=== PATIENT | male | born 1965 | race Caucasian/White ===

== ENCOUNTER 2016-05-20 10:32 | Emergency (ER) | payer BC ==
--- NOTE | 2016-05-20 12:14 | RAD ---
INDICATION: 2 days cough, shortness of breath. Chest pain. COMPARISON: July 22, 2014 TECHNIQUE: Dual energy PA and routine lateral views of the chest were obtained. REPORT: Alveolar consolidation at the RIGHT lung base. Negative for volume loss to favor atelectasis. Grossly clear pleural spaces. Negative for pneumothorax. The heart, pulmonary vasculature, and mediastinal contours are unremarkable. IMPRESSION: RIGHT basilar pneumonia. Radiographic follow-up after therapy suggested to assess for resolution.
[2016-05-20] MEDS ORDERED: cefTRIAXone VIAL(*) 1,000 MG VIAL IM ONE (12:33)
--- NOTE | 2016-05-20 12:48 | UC ---
Cosmo Reilly SooYoung, scribed for [facility],Sunil Quevedo MD on 05/20/16 at 1050 . Respiratory Complaint HPI - HPI Summary HPI Summary: NOTE: Pt reports cough and chills for 2 days. Chest discomfort substernally. Temp noted of 99. Pulse 102. BP elevated at 224/124. Pt noncompliant with DM, HTN and gout medications for 6 months. Pulse ox noted at 97. IN ROOM NOTE: A 51 y/o M presents to [facility] [place] with c/o bad cough onset two days. Associated sx: CP , vomiting/diarrhea, unverified fever. Denies abd pain. Pt went to work yesterday but had to go home early because he felt ill. Pt is a non-smoker, denies PMHx: asthma. PMHx: Pt has DM but has not taken his insulin in the past 6 months. His PCP retired six months ago and he hasnt found a new PCP. No hx of cardiac issues. Past hospitalizations in 2013 for toe amputations on L and R feet due to gout. NURSE'S NOTE: Here w/ cough and chills x2 days. Has chest pain and sob only when coughing. Also c/o diarrhea x2 days, emesisx2 only when coughing. Pt as not taken meds for last 6 months, states he was unable to get med refilled after PCP retired. MD aware. Hx DM 2, HTN, and gout. [ End ] - History of Current Complaint Chief Complaint: UCChestPain Stated Complaint: CHEST PAIN, COUGH,VOMITING Hx Obtained From: Patient Onset/Duration: Lasting Days, Still Present Severity Currently: Mild Pain Intensity: 2 Pain Scale Used: 0-10 Numeric Associated Signs And Symptoms: Positive: Fever - Allergies/Home Medications Allergies/Adverse Reactions: Allergies Allergy/AdvReac Type Severity Reaction Status Date / Time No Known Allergies Allergy Verified 05/20/16 10:55 PMH/Surg Hx/FS Hx/Imm Hx Previously Healthy: No Endocrine History Of: Reports: Diabetes - peripheral neuropathy, Dyslipidemia Denies: Thyroid Disease Cardiovascular History Of: Reports: Hypertension Denies: Cardiac Disorders, Pacemaker/ICD, Myocardial Infarction, Congestive Heart Failure, Atrial Fibrillation, Deep Vein Thrombosis, Bleeding Disorders Respiratory History Of: Reports: Asthma - Bronchospasm/albuterol use. Denies: COPD GI/ History Of: Denies: Gastroesophageal Reflux, Ulcer, Gastrointestinal Bleed, Gall Bladder Disease, Kidney Stones, Diverticulitis, Renal Disease, Urosepsis Neurological History Of: Denies: TIA, CVA, Dementia, Seizures, Migraine Psychological History Of: Denies: Anxiety, Depression, Bipolar Disorder, Schizophrenia, Post Traumatic Stress Disorder Cancer History Of: Denies: Lung Cancer, Colorectal Cancer, Breast Cancer, Prostate Cancer, Cervical Cancer Other History Of: Negative For: HIV, Hepatitis B, Hepatitis C, Anticoagulant Therapy - Surgical History Surgical History: Yes Surgery Procedure, Year, and Place: left second toe amputation 2009. Left ankle ORIF. RIGHT GREAT TOE AMPUTATION 2012, ALL OTHER TOES AMPUTATED 12/2014. HERNIA A CHILD - Family History Known Family History: Positive: Hypertension - Social History Occupation: Employed Full-time Lives: With Family Alcohol Use: Rare Substance Use Type: None Smoking Status (MU): Never Smoked Tobacco - Immunization History Most Recent Influenza Vaccination: 2005 Most Recent Tetanus Shot: 2012 Most Recent Pneumonia Vaccination: never Review of Systems Constitutional: Fever - unverified Respiratory: Cough Cardiovascular: Chest Pain Gastrointestinal: Vomiting, Diarrhea, Other - neg: abd pain All Other Systems Reviewed And Are Negative: Yes Physical Exam Triage Information Reviewed: Yes Appearance: Well-Appearing, No Pain Distress, Well-Nourished Vital Signs: Initial Vital Signs Temp 99 F 05/20/16 10:50 Pulse 102 05/20/16 10:50 Resp 18 05/20/16 10:50 BP 224/124 05/20/16 10:50 Pulse Ox 97 05/20/16 10:50 Vital Signs Reviewed: Yes Eyes: Positive: Conjunctiva Clear ENT: Positive: Hearing grossly normal, Pharynx normal, TMs normal. Negative: Muffled/hoarse voice Neck: Positive: Supple, No Lymphadenopathy Respiratory: Positive: Other: - POS: FEW RHONCHI; EXTENDED EXPIRATORY PHASE; Neg : Rales Cardiovascular: Positive: RRR, No Murmur Abdomen Description: Positive: Nontender, No Organomegaly, Soft Bowel Sounds: Positive: Present Musculoskeletal: Positive: Strength Intact, Other: - REID Neurological: Positive: Alert Psychological: Positive: Age Appropriate Behavior Skin: Negative: rashes UC Diagnostic Evaluation - Radiology Xray Interpretation: Positive (See Comments) - CXR, IMPRESSION: R BASILAR PNA. Radiographic f/u after therapy suggested to assess for resolution. Radiology Interpretation Completed By: Radiologist Respiratory Course/Dx - Course Course Of Treatment: MDM: Discussed at length pts non-compliance, will reorder his medications for DM and HTN. Hes been warned about watching his glucose carefully. Glucose result is 163. Also, sent him for CXR to rule out PNA. CXR shows R basilar PNA. Discussed with pt, will begin his treatment with Rocephin 1000mg IM at [facility] [place], to be followed with Levaquin for 7 days 500mg. Pt is instructed to find a new PCP, was given referral papers. If he does not, he should return to [facility] [place] in 10 days. If his synmptoms worsen, he should go to the ED. Pt voiced agreement and understanding. - Differential Dx/Diagnosis Differential Diagnosis/HQI/PQRI: Bronchitis, Other - PNA Provider Diagnoses: R basilar PNA. Non compliance on medications for DM and hypertension. No primary care Discharge - Discharge Plan Condition: Stable Disposition: HOME Prescriptions: Albuterol HFA INHALER* [Ventolin HFA Inhaler*] 1 - 2 puff INH Q4H PRN #1 mdi PRN Reason: Shortness Of Breath Allopurinol TAB* [Zyloprim 100 MG TAB*] 100 mg PO BID #60 tab MDD 2 Colchicine* [Colcrys*] 0.6 mg PO TID #20 tab MDD 3 Fluticasone HFA 220 mcg(NF) [Flovent Hfa 220 Mcg(NF)] 2 puff INH BID #2 mdi MDD 4 Furosemide TAB* [Lasix TAB*] 20 mg PO TID #60 tab MDD 3 Insulin GLARGINE(*) [Lantus(*)] 46 units SUBCUT BEDTIME #1 box MDD 1 Levofloxacin TAB* [Levaquin TAB*] 500 mg PO DAILY #7 tab Lisinopril TAB* [Prinivil TAB 10 MG*] 20 mg PO DAILY #60 tab MDD 20 mg amLODIPine TAB* [Norvasc TAB*] 10 mg PO DAILY #60 tab MDD 10 mg a day Patient Education Materials: Pneumonia (ED) Forms: *Work Release Referrals: [facility] [place] PHYSICIAN REFERRAL [Outside] Additional Instructions: WE DISCUSSED: 1. You have pneumonia in your right lung. You have been given a shot ( ceftriaxone) and also oral antibiotics (Levaquin for 7 days). 2. Rest; lots of fluids. 3. GO TO ED FOR SHORTNESS OF BREATH, CHEST PAIN, INCREASED COUGH OR CONTINUOUS TEMPERATURE. 4. You need to be rechecked and have a follow up x ray. Go to your regular doctor, if possible, otherwise, return here in 10 days. 5. I have refilled all your medications for diabetes, hypertension and gout, as well as albuterol. Use the albuterol for the next 3 days. 6. Work note given. The documentation as recorded by the Cosmo peoples SooYoung accurately reflects the service I personally performed and the decisions made by me, Sunil Salinas MD.
[2016-05-20] MEDS ORDERED: Lidocaine 1% MPF* 2 ML VIAL ONE (12:51)
[2016-05-20 13:24] VITALS: BP 190/110
== END 2016-05-20 13:20 | disposition home or self-care (01) ==
LOC: UCEAST 10:32
DX: J18.9 Pneumonia, unspecified organism (principal); E11.42 Type 2 diabetes mellitus with diabetic polyneuropathy; I10 Essential (primary) hypertension; Z91.14 Patient's other noncompliance with medication regimen
CPT/HCPCS: 71020; 96372; 99213; G0463; J0696

== ENCOUNTER 2017-01-19 01:16 | Inpatient (IN) | payer BC ==
[2017-01-19 04:17] LABS: Mean Corpuscular Hemoglobin 34 pg (27-31); Mean Platelet Volume 10 um3 (7.4-10.4)
[2017-01-19 04:21] LABS: Hematocrit 17 % (42-52); Mean Corpuscular HGB Conc 33 g/dl (31-36); Mean Corpuscular Volume 105 fL (80-94); Red Blood Count 1.61 10^6/ul (4.0-5.4); Red Cell Distribution Width 15 % (10.5-15); White Blood Count 7.1 10^3/ul (3.5-10.8)
[2017-01-19 04:22] LABS: Comments Flag Yes
[2017-01-19 04:25] LABS: Add Diff/Slide Review? Slide Review Added
[2017-01-19 04:26] LABS: Hemoglobin 5.5 g/dl (14.0-18.0)
[2017-01-19 04:27] LABS: Albumin 3.4 g/dL (3.2-5.2); Calcium 6.8 mg/dL (8.6-10.3); EGFR African American 3.5 (>60); EGFR Non-African American 2.8 (>60); Globulin 2.7 g/dL (2-4); Total Bilirubin 0.3 mg/dL (0.2-1.0); Total Protein 6.1 g/dL (6.4-8.9)
[2017-01-19 04:32] LABS: Potassium 5.8 mmol/L (3.5-5.0)
[2017-01-19 04:39] LABS: Urine Bacteria Absent (Absent); Urine Bilirubin Negative (Negative); Urine Glucose 1+(50 mg/dL) (Negative); Urine Nitrite Negative (Negative)
[2017-01-19 04:55] LABS: BUN/Creatinine Ratio 9.9 (8-20)
[2017-01-19 05:10] LABS: Corrected Retic Count 0.8 % (0.5-1.5); Maturation Factor Retic 2.5
--- NOTE | 2017-01-19 05:26 | HP ---
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 He denies focal weakness, change in speech/swallow, and chest pain. He admits to some mild SOB and mild nausea without emesis, no sweats, changes in bowel/bladder, cough, congestion, sore throat, or other issues. Since arriving, his numbness has improved, but persists. Work up is most notable for HGB 5.5, MCV 105, BUN/cre of 180/18, K 5.8, & serum CO2 of 7. Case was reviewed with Kimberlee Johnson MD nephrology who requests ICU admission, bicarbonate GTT, repeat labs at noon, & will evaluate him this AM. PMedHx DM2, insulin requiring HTN HLD gout Ambulatory Orders NK [No Home Medications Reported] 01/19/17 Allergies No Known Allergies Allergy (Verified 01/19/17 05:10) PSurgHx R transmetatarsal & L 2nd toe amputations (for gout? per patient) R talus surgery 2nd lawnmower incident as a child SocHx: no tobacco, occasional alcohol, no recreational drugs; passed unexpectedly of massive NM 1 month ago, now living alone; works for [employer]; full code status FamHx: Mother: in her 70s of liver CA; Father: alive in his 70s w/ CAD , HTN; Sister: estranged, HX Guillain-Rowland ROS: as above, otherwise reviewed and all were negative vitals: Vital Signs Temp 37.2 C 01/19/17 01:18 Pulse 90 01/19/17 06:01 Resp 20 01/19/17 06:01 BP 168/82 01/19/17 06:01 Pulse Ox 98 01/19/17 06:01 Intake & Output 01/18/17 01/18/17 01/19/17 11:59 23:59 11:59 Weight 104.326 kg Constitutional: NAD, normally developed, obese white male HEENM: atraumatic; sclera/conjunctiva: non-icteric/clear; hearing: clinically intact; oropharynx: clear, mucosa moist Neck: soft tissue: non-tender; thyroid: normal Pulmonary: clear to auscultation bilaterally, good aeration, no accessory muscle use CV: RR/RR, normal S1S2, no carotid bruit, no jugular venous distention, 2+ B DP/ PT, 1+ BLE edema Abdominal: soft, non-distended, non-tender, no rebound/guarding/rigidity, normoactive bowel sounds, no hepatosplenomegaly or masses, no costovertebral angle tenderness Musculoskeletal: general: R transmetatarsal amputation, R heal deformity, L 2nd toe amputation; gait: stable Integumental: diffuse BLE superficial skin sores consistent w/ advanced renal disease Neurological cranial nerves III/IV/: symmetric light reflex, EOMI/PERRLA VII: intact facial symmetry VIII: hearing clinically intact IX/X: symmetric palatal motion, no dysarthria XII: midline tongue protrusion, normal voice articulation motor: grossly non-focal Psychiatric orientation: AA&O to PPS affect: calm mood: cooperative eye contact: fair content: reliable responses: timely insight: poor Testing: Lab Results 01/19/17 01/19/17 01/19/17 Range/Units 03:47 03:47 03:47 WBC 7.1 (3.5-10.8) 10^3/ul RBC 1.61 L (4.0-5.4) 10^6/ul RBC (Retic) 1.61 L (4.6-6.2) 10^6/ul Hgb 5.5 L* (14.0-18.0) g/dl Hct 17 L (42-52) % HCT (Retic) 17 L (42-52) % MCV 105 H (80-94) fL MCH 34 H (27-31) pg MCHC 33 (31-36) g/dl RDW 15 (10.5-15) % Plt Count 153 (150-450) 10^3/ul MPV 10 (7.4-10.4) um3 Neut % (Auto) 84.6 H (38-83) % Lymph % (Auto) 8.4 L (25-47) % [place] % (Auto) 5.8 (1-9) % Eos % (Auto) 0.8 (0-6) % Baso % (Auto) 0.4 (0-2) % Absolute Neuts (auto) 6.0 (1.5-7.7) 10^3/ul Absolute Lymphs (auto) 0.6 L (1.0-4.8) 10^3/ul Absolute Monos (auto) 0.4 (0-0.8) 10^3/ul Absolute Eos (auto) 0.1 (0-0.6) 10^3/ul Absolute Basos (auto) 0 (0-0.2) 10^3/ul Absolute Nucleated RBC 0.01 10^3/ul Nucleated RBC % 0.1 Normal RBC Morphology Not Reportable Macrocytosis 2+ Spherocytes 2+ Jonah Cells 1+ Retic Count, Calc 2.2 H (0.5-1.5) % Corrected Retic Count 0.8 (0.5-1.5) % Retic Shift Factor 2.5 Retic Production Index 0.30 Immature Retic Fraction 0.50 Mean Retic Volume 130.8 Sodium 138 (133-145) mmol/L Potassium 5.8 H (3.5-5.0) mmol/L Chloride 110 (101-111) mmol/L Carbon Dioxide 7 L* (22-32) mmol/L Anion Gap 21 H (2-11) mmol/L BUN 181 H (6-24) mg/dL Creatinine 18.24 H (0.67-1.17) mg/dL Est GFR ( Amer) 3.5 (>60) Est GFR (Non-Af Amer) 2.8 (>60) BUN/Creatinine Ratio 9.9 (8-20) Glucose 84 (70-100) mg/dL Calcium 6.8 L (8.6-10.3) mg/dL Phosphorus Magnesium Iron (50-212) ug/dL TIBC (250-450) mcg/dL % Saturation (15-55) % Unsat Iron Binding ug/dL Ferritin (24-336) ng/mL Total Bilirubin 0.30 (0.2-1.0) mg/dL AST 14 (13-39) U/L ALT 29 (7-52) U/L Alkaline Phosphatase 89 (34-104) U/L Lactate Dehydrogenase (140-271) U/L Total Protein 6.1 L (6.4-8.9) g/dL Albumin 3.4 (3.2-5.2) g/dL Globulin 2.7 (2-4) g/dL Albumin/Globulin Ratio 1.3 (1-3) Vitamin B12 (180-914) pg/mL Folate (>3.99) ng/mL Urine Color Urine Appearance Urine pH (5-9) Ur Specific [place] (1.010-1.030) Urine Protein (Negative) Urine Ketones (Negative) Urine Blood (Negative) Urine Nitrate (Negative) Urine Bilirubin (Negative) Urine Urobilinogen (Negative) Ur Leukocyte Esterase (Negative) Urine WBC (Auto) (Absent) Urine RBC (Auto) (Absent) Urine Bacteria (Absent) Urine Glucose (Negative) Blood Type A Positive Antibody Screen Negative Crossmatch See Detail 01/19/17 01/19/17 Range/Units 04:24 04:55 WBC (3.5-10.8) 10^3/ul RBC (4.0-5.4) 10^6/ul RBC (Retic) (4.6-6.2) 10^6/ul Hgb (14.0-18.0) g/dl Hct (42-52) % HCT (Retic) (42-52) % MCV (80-94) fL MCH (27-31) pg MCHC (31-36) g/dl RDW (10.5-15) % Plt Count (150-450) 10^3/ul MPV (7.4-10.4) um3 Neut % (Auto) (38-83) % Lymph % (Auto) (25-47) % [place] % (Auto) (1-9) % Eos % (Auto) (0-6) % Baso % (Auto) (0-2) % Absolute Neuts (auto) (1.5-7.7) 10^3/ul Absolute Lymphs (auto) (1.0-4.8) 10^3/ul Absolute Monos (auto) (0-0.8) 10^3/ul Absolute Eos (auto) (0-0.6) 10^3/ul Absolute Basos (auto) (0-0.2) 10^3/ul Absolute Nucleated RBC 10^3/ul Nucleated RBC % Normal RBC Morphology Macrocytosis Spherocytes [place] Cells Retic Count, Calc (0.5-1.5) % Corrected Retic Count (0.5-1.5) % Retic Shift Factor Retic Production Index Immature Retic Fraction Mean Retic Volume Sodium (133-145) mmol/L Potassium (3.5-5.0) mmol/L Chloride (101-111) mmol/L Carbon Dioxide (22-32) mmol/L Anion Gap (2-11) mmol/L BUN (6-24) mg/dL Creatinine (0.67-1.17) mg/dL Est GFR ( Amer) (>60) Est GFR (Non-Af Amer) (>60) BUN/Creatinine Ratio (8-20) Glucose (70-100) mg/dL Calcium (8.6-10.3) mg/dL Phosphorus Pending Magnesium Pending Iron 108 (50-212) ug/dL TIBC 232 L (250-450) mcg/dL % Saturation 47 (15-55) % Unsat Iron Binding 124 ug/dL Ferritin 302.9 (24-336) ng/mL Total Bilirubin (0.2-1.0) mg/dL AST (13-39) U/L ALT (7-52) U/L Alkaline Phosphatase (34-104) U/L Lactate Dehydrogenase 332 H (140-271) U/L Total Protein (6.4-8.9) g/dL Albumin (3.2-5.2) g/dL Globulin (2-4) g/dL Albumin/Globulin Ratio (1-3) Vitamin B12 493 (180-914) pg/mL Folate 11.01 (>3.99) ng/mL Urine Color Yellow Urine Appearance Clear Urine pH 5.0 (5-9) Ur Specific [place] 1.011 (1.010-1.030) Urine Protein 3+(>=500 mg/dl) H (Negative) Urine Ketones Negative (Negative) Urine Blood 2+ H (Negative) Urine Nitrate Negative (Negative) Urine Bilirubin Negative (Negative) Urine Urobilinogen Negative (Negative) Ur Leukocyte Esterase Negative (Negative) Urine WBC (Auto) 1+(6-10/hpf) H (Absent) Urine RBC (Auto) Trace(0-2/hpf) (Absent) Urine Bacteria Absent (Absent) Urine Glucose 1+(50 mg/dl) H (Negative) Blood Type Antibody Screen Crossmatch ECG: ordered, pending CXR: ordered, pending CT L-spine WO: IMPRESSION: L4 spondyloysis with 8mm spondylolisthesis relative to L5. No fracture. Impression: 51M HX insulin requiring DM2, HTN, HLD, & gout who self-D/C'd medications ~1year ago presents with decompensating metabolic acidosis of ESRD & severe anemia of renal disease DIAGNOSIS & PLAN Primary ESRD, euvolemic, hyperKalemic, acidotic : Kimberlee Johnson MD nephrology consulted, will assess in AM & follow : 1/2NS w/ 2amps HCO3 GTT at 125cc/hr : repeat labs at noon : ICU monitoring : volume status : reports good (normal) urine volume production : lungs are clear w/ good inspiration : no oxygen requirements : he is hypertensive w/ mild BLE, so volume status is estimated to be normal to mildly elevated : nursing to monitor respiratory status closely for s/s volume overload while on bicarb GTT & receiving blood : check VBG : renal diet : supportive care anemia of renal disease : check anemia labs to eval for mixed anemia : transfuse 3units pRBCs : trend H&H : anticipate nephrology initiating erythropoitin DM2 : check A1c : consistent carb diet : correctional insulin HTN : start amlodipine 5mg PO daily : trend & adjust as indicated HLD : lipid profile in AM gout : no acute issues Admission Rational: inpatient for new DX ESRD w/ acidosis & hyperKalemia requiring urgent initiation of hemodialysis DVTp: heparin SQ & SCDs Code Status: full
[2017-01-19 05:41] LABS: Macrocytosis 2+; Spherocytes 2+
[2017-01-19 05:42] LABS: Burr Cells 1+
[2017-01-19 06:20] LABS: Ferritin 302.9 ng/mL (24-336)
[2017-01-19 06:23] LABS: Folate 11.01 ng/mL (>3.99)
[2017-01-19] MEDS: Sodium Bicarbonate 8.4% IV* 100 MEQ in NS 0.45% 1000 ML BAG* 1,000 ML IV SCH ×3 (06:29→23:47)
[2017-01-19 06:59] LABS: TSH (Thyroid Stimulating Horm) 5.33 mcIU/mL (0.34-5.60)
[2017-01-19] MEDS ORDERED: Insulin LISPRO* 1 UNITS UNIT SUBCUT SCH (07:30)
[2017-01-19 07:36] LABS: Magnesium 1.8 mg/dL (1.9-2.7); Phosphorus 10.5 mg/dL (2.5-5.0)
[2017-01-19] MEDS ORDERED: Sodium Polystyrene ORAL.SOL* 15 GM/60 ML BTL PO ONE (07:56)
[2017-01-19 08:18] LABS: EGFR African American 4.3 (>60); EGFR Non-African American 3.4 (>60)
--- NOTE | 2017-01-19 08:57 | PN ---
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 [employer] Objective Active Medications: Acetaminophen (Tylenol Tab*) 650 mg PO Q6H PRN PRN Reason: FEVER/PAIN Amlodipine Besylate (Norvasc Tab*) 5 mg PO DAILY [facility] Docusate Sodium (Colace Cap*) 200 mg PO BID [facility] Heparin Sodium (Porcine) (Heparin Vial(*)) 5,000 units SUBCUT Q8HR [facility] Sodium Bicarbonate 100 meq/ (Sodium Chloride) 1,100 mls @ 125 mls/hr IV Q8H [facility] Last Admin: 01/19/17 06:29 Dose: 125 mls/hr Melatonin (Melatonin (Nf)) 3 mg PO BEDTIME PRN; Protocol PRN Reason: Sleep Omeprazole (Prilosec Cap*) 20 mg PO DAILY@0600 [facility] Ondansetron HCl (Zofran Inj*) 4 mg IV Q6H PRN PRN Reason: NAUSEA Sevelamer Carbonate (Renvela Tab*) 1,600 mg PO TID [facility] Vital Signs 01/19/17 01/19/17 06:27 06:40 Temperature 98.9 F 98.8 F Pulse Rate 83 82 Respiratory 16 18 Rate Blood Pressure 178/97 160/98 (mmHg) O2 Sat by Pulse 100 99 Oximetry Oxygen Devices in Use Now: None Appearance: Well appearing sitting in bed, NAD Eyes: No Scleral Icterus, PERRLA Ears/Nose/Mouth/Throat: Mucous Membranes Moist, - - poor dentition Neck: NL Appearance and Movements; NL JVP, Trachea Midline, No Thyroid Enlargement, Masses Respiratory: Symmetrical Chest Expansion and Respiratory Effort, Clear to Auscultation Cardiovascular: NL Sounds; No Murmurs; No JVD, RRR Abdominal: NL Sounds; No Tenderness; No Distention, No Hepatosplenomegaly Lymphatic: No Cervical Adenopathy Skin: - - b/l punctate and scaly papular rash with areas of confluance symmetric on b/l knees Neurological: Alert and Oriented x 3, - - APox3 cn2-12 intact, strength 5/5 intact, sensation intact throughout, FNF intact Result Diagrams: 01/19/17 03:47 01/19/17 07:35 Assess/Plan/Problems-Billing Assessment: 51 yo M h/o HTN, DM2 p/w right hand and b/l leg "numbness" found with acute on chronic renal failure and anemia - Patient Problems (1) Numbness and tingling Comment: Suspect in setting of metabolic derrangements. No e/o numbness on physical exam. The remainder of physical exam intact Await CT lumbar spine If symptoms persist wit h correction of phosphate, calcium, BUN, consider additional imaging (2) Anemia Comment: Suspected in setting of renal failure 1 U PRBC then recheck Goal Hb >7 (3) Acute kidney failure Comment: Suspect in setting of uncontrolled DM and HTN b/l rash on knees rasises carloat of vasculitis; checking FELISA, ESR/CRP, ANCA plan on access for HD today. Will likely need terminal gauger access/tunneled (4) Metabolic acidosis Comment: Bicarb drip and recheck VBG and BMP at noon (5) Diabetes Comment: presenting FSG <100 FSG without converage until baseline established (6) Hypertension Comment: norvasc (7) Hyperphosphatemia Comment: start sevelemer (8) DVT prophylaxis Comment: HSQ
[2017-01-19] MEDS: Docusate CAP* 100 MG PO SCH ×2 (09:01→20:35)
[2017-01-19] MEDS: amLODIPine TAB* 5 MG PO SCH (09:01)
[2017-01-19] MEDS: Ondansetron INJ* 2 MG/ML VIAL IV PRN (09:02)
--- NOTE | 2017-01-19 09:17 | RAD ---
Indication: Lower lumbar spine pain. CT of the lumbar spine was obtained in the axial plane. Sagittal and coronal reconstructed images were obtained. The vertebral bodies appear normal in height. No compression fracture is noted. At L5-S1, there is degenerative disc disease present. There is broad-based protrusion flattening the thecal sac. Moderate facet hypertrophy is noted. There may be bilateral foraminal stenosis at this level. At L4-5, grade 1 spondylolisthesis is noted. Broad-based protrusion flattens the thecal sac. Facet arthropathy is noted. Defects in the pars interarticularis are noted bilaterally consistent with bilateral spondylolysis. At L3-4, there is degenerative disc disease with broad-based protrusion flattening the thecal sac. Moderate facet hypertrophy is noted. Mild to moderate spinal stenosis is noted. At L2-3, broad-based protrusion flattens the thecal sac. No central or foraminal stenosis is identified. At L1-2, no disc protrusion is identified. No central or foraminal stenosis is noted. IMPRESSION: 1. Grade 1 spondylolisthesis of L4 on 5 with bilateral spondylolysis and moderate degree of spinal stenosis. Broad-based protrusion is noted. 2. At L5-S1, broad-based protrusion flattens the thecal sac with moderate facet hypertrophy. Broad-based protrusion appears to narrow both intervertebral foramen. 3. At L3-4, broad-based protrusion flattens the thecal sac. Mild to moderate spinal stenosis is noted. 4. At L2-3, broad-based protrusion flattens the thecal sac.
--- NOTE | 2017-01-19 09:25 | RAD ---
Indication: End-stage renal disease. Comparison: June 04, 2009 ultrasound Technique: Renal ultrasound. Report: 9.8 x 4.6 x 5.2 cm RIGHT kidney. 10.1 x 5.3 x 5.2 cm LEFT kidney. Moderate cortical thinning and heterogeneous increased cortical echogenicity increased over the 2010 exam corresponding with medical renal disease. Small echogenic foci are noted at the cortical medullary junctions without definitive shadowing to confirm nephrolithiasis. Negative for hydronephrosis. No focal renal lesions evident. IMPRESSION: 1. Negative for obstructive uropathy. 2. Moderate cortical atrophy and stigmata of medical renal disease with interval progression compared with the 2010 exam.
[2017-01-19 09:35] LABS: C Reactive Protein 8.65 mg/L (< 5.00)
[2017-01-19 10:52] LABS: Syphilis Index < 0.1 Index
--- NOTE | 2017-01-19 10:59 | CONS ---
NEPHROLOGY CONSULTATION: DATE OF CONSULT: HISTORY OF PRESENT ILLNESS: Mr. Singletary is a 51-year-old gentleman with a history of type 2 diabete s mellitus and hypertension who had stopped all his medicines about a year ago when Dr. Glasgow had ret ired. He had been feeling quite well until he began to get numbness to both legs and paresthesias to his right hand yesterday. He had no chest pain, no near syncope, no shortness of breath, no fevers, no chills, no nausea, no vomiting. He presented to the emergency room where he was found to be in re nal failure with a severe metabolic acidosis. PAST MEDICAL HISTORY: His previous medical history is significant for gout as well as hyperlipidemia . 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 MEDICATIONS: At the time of admission, he was on no medications at all. ALLERGIES: He has no known medical allergies. SOCIAL HISTORY: He does not use tobacco. Unfortunately, his about 2 months ago. REVIEW OF SYSTEMS: No visual defects. No swallowing problems. No heat or cold intolerance. No nicole st pain. No shortness of breath. No nausea. No vomiting. No anorexia. He has developed an erythe matous maculopapular skin eruption extensively over his legs and torso within the last couple of days . PHYSICAL EXAMINATION: He is an obese white gentleman who appears quite comfortable. His blood press ure is 176/99 with a pulse of 86, respirations are 19. He wears a full mann. So I could not see whet her or not the rash was up into his facial area or not. He is anicteric. His extraocular muscles ar e intact. His mucous membranes are moist. I could not see his neck veins. His chest is clear. The heart reveals a regular rhythm without murmurs. The abdomen is obese and nontender. Bones, joints, extremities: Surprisingly, he was not edematous. There was no acrocyanosis with the previously ment ioned rash diffusely. Neurologic was unremarkable. DIAGNOSTIC STUDIES/LAB DATA: Review of his laboratory studies reveals a white count of 7.1, hemoglob in 5.5, platelet count of 153,000, his MCV is 105. He has an INR of 1.78. Sodium of 138, potassium 5.8, total CO2 7, BUN was 181 on presentation, creatinine was 18.24 on presentation, calcium 6.8 with a phosphorus of 10.5, magnesium of 1.8. Urinalysis revealed 3+ glucose, 3+ protein, 2+ blood. IMPRESSION: 1. Acute on chronic renal failure. 2. Diabetes mellitus, type 2. 3. Hypertension. 4. At present undiagnosed skin eruption. 5. Hyperkalemia. 6. Increased anion gap metabolic acidosis. I have discussed the case at length with Dr. Rawls. At the present time, we are attempting to manag e the acidosis conservatively. He will be receiving slower replacement of his blood. He probably is going to need dialysis. I have discussed the indications and risks for dialysis with him including bleeding and infection. We will be monitoring his laboratory values closely to see how much he resolv es in order to make a decision to proceed on with dialysis or not. [id number]/[facility] #: [id number]
[2017-01-19] MEDS: Sevelamer TAB* 800 MG PO SCH ×3 (11:22→18:42)
[2017-01-19 12:41] LABS: Red Cell Distribution Width 15 % (10.5-15); White Blood Count 6.3 10^3/ul (3.5-10.8)
[2017-01-19 12:42] LABS: Venous Bicarbonate HCO3 10.1 mmol/L (24-28)
[2017-01-19 12:43] LABS: Hematocrit 17 % (42-52); Mean Corpuscular HGB Conc 34 g/dl (31-36); Mean Corpuscular Hemoglobin 35 pg (27-31); Mean Corpuscular Volume 104 fL (80-94); Mean Platelet Volume 10 um3 (7.4-10.4); Red Blood Count 1.59 10^6/ul (4.0-5.4)
[2017-01-19 12:44] LABS: Comments Flag Yes
[2017-01-19 12:47] LABS: Hemoglobin 5.6 g/dl (14.0-18.0)
[2017-01-19 13:03] LABS: Albumin 3.3 g/dL (3.2-5.2); Calcium 6.8 mg/dL (8.6-10.3); EGFR African American 3.7 (>60); EGFR Non-African American 2.9 (>60); Globulin 2.6 g/dL (2-4); Magnesium 1.8 mg/dL (1.9-2.7); Phosphorus 10.6 mg/dL (2.5-5.0); Total Bilirubin 0.4 mg/dL (0.2-1.0); Total Protein 5.9 g/dL (6.4-8.9)
[2017-01-19 13:06] LABS: Potassium 5.3 mmol/L (3.5-5.0)
[2017-01-19 13:21] LABS: BUN/Creatinine Ratio 9.7 (8-20)
[2017-01-19] MEDS ORDERED: Phytonadione Oral Solution* 5 MG/25 ML UDC PO ONE (14:00)
[2017-01-19] MEDS ORDERED: Epoetin Alfa* 10,000 UNITS/ML VIAL SUBCUT ONE (14:01)
[2017-01-19] MEDS ORDERED: DESMOPRESSIN ACETATE IVPB ONE (14:07)
[2017-01-19] MEDS ORDERED: NS 0.9% IVPB ONE (14:07)
--- NOTE | 2017-01-19 14:41 | PN ---
Progress Note - Progress Note Date of Service: 01/19/17 Note: CRITICAL CARE MEDICINE PROCEDURE NOTE DATE: 01/19/17 TIME: 1330 SERVICE: Critical Care Medicine LOCATION OF PROCEDURE: ICU PROCEDURE: HD catheter line insertion PROCEDURALIST: Dr. Rizvi Consent obtain: Yes Time out held: Yes INDICATION: ARF on chronic and needing iv access PROCEDURE: Oxygenation maintained and vitals monitored. Patient in supine position. Ivan 3 lumen catheter choosen. SITE: RIGHT Internal jugular Site preparation with chlorhexidine locally. Full sterile drape, gown, hat, mask, gloves. 5ml 1% Lidocaine utilized at incision site. Standard sterile Seldinger technique utilized via ultrasound guidance and catheter was inserted to 18cm and sutured in place. Good blood return. Minimal blood loss. Site dressed with tegaderm. Portable chest x-ray pending. Patient otherwise tolerated well. Sammi Rizvi DO
--- NOTE | 2017-01-19 14:46 | RAD ---
HISTORY: Status post catheter placement COMPARISONS: May 20, 2016 VIEWS: 1: frontal portable view of the chest at 2:25 PM FINDINGS: LINES AND TUBES: A right internal jugular venous catheter is noted with tip overlying the cavoatrial junction. CARDIOMEDIASTINAL SILHOUETTE: The cardiomediastinal silhouette is normal for portable technique. PLEURA: The costophrenic angles are sharp. No pleural abnormalities are noted. There is no appreciable pneumothorax. LUNG PARENCHYMA: The lungs are clear. ABDOMEN: The upper abdomen is clear. There is no subphrenic gas. BONES AND SOFT TISSUES: No bone or soft tissue abnormalities are noted. IMPRESSION: LINES AND TUBES ABOVE. NO ACTIVE CARDIOPULMONARY DISEASE.
[2017-01-19] MEDS: CALCITRIOL 1 MCG/ML IV SCH (15:21)
[2017-01-19 19:56] LABS: Hematocrit 19 % (42-52); Mean Corpuscular HGB Conc 33 g/dl (31-36); Mean Corpuscular Hemoglobin 33 pg (27-31); Mean Corpuscular Volume 103 fL (80-94); Mean Platelet Volume 9 um3 (7.4-10.4); Red Blood Count 1.82 10^6/ul (4.0-5.4); Red Cell Distribution Width 15 % (10.5-15)
[2017-01-19 19:59] LABS: Comments Flag Yes
[2017-01-19 20:00] LABS: Hemoglobin 6.1 g/dl (14.0-18.0)
[2017-01-19 20:10] LABS: Calcium 6.9 mg/dL (8.6-10.3); EGFR African American 3.7 (>60); EGFR Non-African American 2.9 (>60); One Over Creatinine 0.05 mg/dL (0.67-1.17)
[2017-01-19 20:26] LABS: BUN/Creatinine Ratio 9.6 (8-20)
[2017-01-19] MEDS: Baclofen TAB* 10 MG PO SCH (20:35)
[2017-01-19] MEDS: Acetaminophen TAB* 325 MG PO PRN (20:37)
[2017-01-19] MEDS: Heparin VIAL(*) 5000 UNITS/ML VIAL (FIVE THOUSAND) SUBCUT SCH (22:00)
[2017-01-19 23:46] LABS: Venous Bicarbonate HCO3 12.1 mmol/L (24-28)
[2017-01-20] MEDS: Acetaminophen TAB* 325 MG PO PRN (05:42)
[2017-01-20] MEDS: Omeprazole CAP* 20 MG PO SCH (05:42)
[2017-01-20] MEDS: Heparin VIAL(*) 5000 UNITS/ML VIAL (FIVE THOUSAND) SUBCUT SCH ×3 (05:42→21:15)
[2017-01-20 06:51] LABS: Red Blood Count 1.76 10^6/ul (4.0-5.4)
[2017-01-20 06:55] LABS: Hematocrit 18 % (42-52); Mean Corpuscular HGB Conc 33 g/dl (31-36); Mean Corpuscular Hemoglobin 34 pg (27-31); Mean Corpuscular Volume 103 fL (80-94); Mean Platelet Volume 10 um3 (7.4-10.4); Red Cell Distribution Width 15 % (10.5-15)
[2017-01-20 06:58] LABS: Comments Flag Yes
[2017-01-20 07:04] LABS: Calcium 6.8 mg/dL (8.6-10.3); EGFR African American 3.7 (>60); EGFR Non-African American 2.9 (>60)
[2017-01-20 07:46] LABS: BUN/Creatinine Ratio 9.6 (8-20)
[2017-01-20] MEDS: Sodium Bicarbonate 8.4% IV* 100 MEQ in NS 0.45% 1000 ML BAG* 1,000 ML IV SCH ×2 (08:35→17:02)
[2017-01-20] MEDS: Baclofen TAB* 10 MG PO SCH ×2 (08:35→21:14)
[2017-01-20] MEDS: Docusate CAP* 100 MG PO SCH ×2 (08:36→21:15)
[2017-01-20] MEDS: amLODIPine TAB* 5 MG PO SCH (08:36)
[2017-01-20] MEDS: Sevelamer TAB* 800 MG PO SCH ×3 (09:23→17:02)
--- NOTE | 2017-01-20 15:06 | PN ---
Subjective Date of Service: 01/20/17 Interval History: Seen and examined this AM Pt has complaints Later in the day nursing reported pt was anxious and wanted to get up and ambulate. Pt reports numbness has improved but is still present in hand and b/l legs Objective Active Medications: Acetaminophen (Tylenol Tab*) 650 mg PO Q6H PRN PRN Reason: FEVER/PAIN Last Admin: 01/20/17 05:42 Dose: 650 mg Amlodipine Besylate (Norvasc Tab*) 5 mg PO DAILY [facility] Last Admin: 01/20/17 08:36 Dose: 5 mg Baclofen (Lioresal Tab*) 2.5 mg PO BID [facility] Last Admin: 01/20/17 08:35 Dose: 2.5 mg Calcitriol (Calcijex Inj*) 0.25 mcg IV MoWeFr@0900 [facility] Last Admin: 01/19/17 15:21 Dose: 0.25 mcg Docusate Sodium (Colace Cap*) 200 mg PO BID [facility] Last Admin: 01/20/17 08:36 Dose: 200 mg Heparin Sodium (Porcine) (Heparin Vial(*)) 5,000 units SUBCUT Q8HR [facility] Last Admin: 01/20/17 12:55 Dose: 5,000 units Sodium Bicarbonate 100 meq/ (Sodium Chloride) 1,100 mls @ 125 mls/hr IV Q8H [facility] Last Admin: 01/20/17 08:35 Dose: 125 mls/hr Melatonin (Melatonin (Nf)) 3 mg PO BEDTIME PRN; Protocol PRN Reason: Sleep Omeprazole (Prilosec Cap*) 20 mg PO DAILY@0600 [facility] Last Admin: 01/20/17 05:42 Dose: 20 mg Ondansetron HCl (Zofran Inj*) 4 mg IV Q6H PRN PRN Reason: NAUSEA Last Admin: 01/19/17 09:02 Dose: 4 mg Sevelamer Carbonate (Renvela Tab*) 1,600 mg PO TID WITH MEALS [facility] Last Admin: 01/20/17 12:55 Dose: 1,600 mg Vital Signs 01/19/17 01/19/17 01/19/17 15:05 15:41 15:57 Temperature Pulse Rate 89 87 87 Respiratory 15 17 16 Rate Blood Pressure 181/106 171/96 (mmHg) O2 Sat by Pulse 95 99 97 Oximetry 01/19/17 01/19/17 01/19/17 16:00 17:00 17:19 Temperature 97.3 F Pulse Rate 85 91 88 Respiratory 13 12 17 Rate Blood Pressure 181/103 164/114 (mmHg) O2 Sat by Pulse 96 99 98 Oximetry 01/19/17 01/19/17 01/19/17 17:20 18:00 18:33 Temperature Pulse Rate 87 89 89 Respiratory 21 17 18 Rate Blood Pressure 155/95 176/99 (mmHg) O2 Sat by Pulse 98 98 99 Oximetry 01/19/17 01/19/17 01/19/17 18:44 19:00 19:01 Temperature Pulse Rate 93 Respiratory 20 21 19 Rate Blood Pressure 175/125 (mmHg) O2 Sat by Pulse 98 98 92 Oximetry 01/19/17 01/19/17 01/19/17 20:00 20:41 20:52 Temperature 99.4 F Pulse Rate Respiratory 15 16 Rate Blood Pressure 166/95 (mmHg) O2 Sat by Pulse 93 99 Oximetry 01/19/17 01/19/17 01/19/17 21:00 22:00 22:07 Temperature Pulse Rate Respiratory 14 8 14 Rate Blood Pressure 168/103 161/99 (mmHg) O2 Sat by Pulse 99 97 93 Oximetry 01/19/17 01/19/17 01/19/17 22:13 23:00 23:51 Temperature Pulse Rate Respiratory 14 14 18 Rate Blood Pressure 154/93 157/93 (mmHg) O2 Sat by Pulse 92 93 99 Oximetry 01/19/17 01/20/17 01/20/17 23:52 00:00 01:00 Temperature 99.2 F Pulse Rate Respiratory 15 18 20 Rate Blood Pressure 159/95 166/99 (mmHg) O2 Sat by Pulse 100 95 100 Oximetry 01/20/17 01/20/17 01/20/17 02:00 02:52 03:00 Temperature Pulse Rate Respiratory 19 16 12 Rate Blood Pressure 164/101 147/97 (mmHg) O2 Sat by Pulse 99 99 Oximetry 01/20/17 01/20/17 01/20/17 04:00 05:00 05:45 Temperature 99.2 F Pulse Rate Respiratory 11 17 Rate Blood Pressure 175/104 171/100 (mmHg) O2 Sat by Pulse 99 99 Oximetry 01/20/17 01/20/17 01/20/17 06:00 06:30 06:32 Temperature Pulse Rate 85 84 Respiratory 12 14 14 Rate Blood Pressure 166/114 (mmHg) O2 Sat by Pulse 97 96 Oximetry 01/20/17 01/20/17 01/20/17 07:00 08:00 09:00 Temperature 99.2 F Pulse Rate 86 87 89 Respiratory 13 15 20 Rate Blood Pressure 172/104 168/99 178/99 (mmHg) O2 Sat by Pulse 91 91 97 Oximetry 01/20/17 01/20/17 01/20/17 10:00 11:00 11:21 Temperature Pulse Rate 87 84 Respiratory 18 16 Rate Blood Pressure 179/114 158/87 (mmHg) O2 Sat by Pulse 98 93 98 Oximetry 01/20/17 01/20/17 01/20/17 11:54 12:00 13:00 Temperature 99.4 F Pulse Rate 88 84 Respiratory 13 17 Rate Blood Pressure 170/94 168/94 (mmHg) O2 Sat by Pulse 96 98 Oximetry 01/20/17 01/20/17 01/20/17 13:55 14:00 14:01 Temperature Pulse Rate 91 90 89 Respiratory 19 23 18 Rate Blood Pressure 184/97 171/88 (mmHg) O2 Sat by Pulse 99 98 97 Oximetry Oxygen Devices in Use Now: None Appearance: NAD Eyes: No Scleral Icterus, PERRLA Ears/Nose/Mouth/Throat: Clear Oropharnyx, Mucous Membranes Moist Neck: NL Appearance and Movements; NL JVP, Trachea Midline Respiratory: Symmetrical Chest Expansion and Respiratory Effort, Clear to Auscultation Cardiovascular: RRR Abdominal: NL Sounds; No Tenderness; No Distention, No Hepatosplenomegaly Lymphatic: No Cervical Adenopathy Extremities: No Edema Skin: - - maculpapolar rash on b/l knees unchanged since admission Neurological: Alert and Oriented x 3, - - cn2-12 intact, 5/5 strength throughout , sensation intact throughout Result Diagrams: 01/20/17 06:21 01/20/17 06:21 Microbiology and Other Data: Microbiology 01/19/17 16:30 Wound Gram Stain - Final Wound - Right Leg Tissue Culture - Preliminary No Growth Day 1 01/19/17 07:35 Nasal Screen MRSA (PCR)([facility]) - Final Nasal Mrsa Negative Assess/Plan/Problems-Billing Assessment: 51 yo M h/o HTN, DM2 p/w right hand and b/l leg "numbness" found with acute on chronic renal failure and anemia - Patient Problems (1) Numbness and tingling Comment: Suspect in setting of metabolic derrangements. No e/o numbness on physical exam. The remainder of physical exam intact CT lumbar spine with multilevel degenerative dz. Suspect metabolic etiology in setting of current derrangements. Can consider further investigation if no improvement with HD (2) Anemia Comment: Suspected in setting of renal failure 1 U PRBC yesterday with minimal improvement. Second unit today 01/20 during dialysis then recheck Goal Hb >7 (3) Acute kidney failure Comment: Suspect in setting of uncontrolled DM and HTN b/l rash on knees rasises carlota of vasculitis; checking FELISA, ESR/CRP, ANCA plan on access for HD today 01/20. Will likely need snf access/tunneled (4) Metabolic acidosis Comment: Bicarb drip HD today (5) Diabetes Comment: presenting FSG <100 stop checking FSG (6) Hypertension Comment: norvasc HD today - adjust meds if no improvement with volume management (7) Hyperphosphatemia Comment: start sevelemer HD (8) DVT prophylaxis Comment: HSQ
[2017-01-21] MEDS: Sodium Bicarbonate 8.4% IV* 100 MEQ in NS 0.45% 1000 ML BAG* 1,000 ML IV SCH ×2 (01:57→09:35)
--- NOTE | 2017-01-21 02:44 | PN ---
PROGRESS NOTE: DATE OF SERVICE: HISTORY: Mr. Singletary is feeling reasonably well today. He has no chest pain, no shortness of breat h, no nausea or vomiting. He has no neuromuscular irritability. He maintains a reasonable urine outp ut, although his weight is up 2.2 kg. His blood pressure is a little high at 172/104. His chest is clear. The heart revealed a regular rhythm. His rash is essentially unchanged. I am a little disap pointed in his laboratory values. Initially yesterday, his BUN and creatinine were coming down, but now they have rebounded to their previous levels. BUN is 168, creatinine of 17.46. His total CO2 is 9. As a result, I do not believe we are going to be able to treat this conservatively and we will n eed to proceed on with dialysis. I have already adjusted the orders to reduce the risk of dialysis d isequilibrium syndrome. He is going to be receiving a unit of blood during dialysis today. I did re view the issue of dialysis disequilibrium syndrome with the nursing staff and with the patient to monique e them aware of what symptoms to be observant for. Obviously, my nurses are already familiar with th at problem. I have discussed the case with Dr. Rawls. [id number]/[facility] [facility] #: [id number]
[2017-01-21] MEDS ORDERED: LORazepam INJ* 2 MG/ML 1 ML VIAL IV PUSH ONE (05:00)
[2017-01-21] MEDS ORDERED: Nitroglycerin TAB 0.4 MG* 0.4 MG TAB SL ONE (05:00)
[2017-01-21] MEDS ORDERED: Nitroglycerin TAB 0.4 MG* 0.4 MG TAB ONE (05:00)
[2017-01-21 06:51] LABS: Hematocrit 18 % (42-52); Mean Corpuscular HGB Conc 33 g/dl (31-36); Mean Corpuscular Hemoglobin 33 pg (27-31); Mean Corpuscular Volume 100 fL (80-94); Mean Platelet Volume 10 um3 (7.4-10.4); Red Blood Count 1.78 10^6/ul (4.0-5.4); Red Cell Distribution Width 16 % (10.5-15); White Blood Count 7.6 10^3/ul (3.5-10.8)
[2017-01-21 06:54] LABS: Comments Flag Yes
[2017-01-21] MEDS: Heparin VIAL(*) 5000 UNITS/ML VIAL (FIVE THOUSAND) SUBCUT SCH ×3 (07:03→21:52)
[2017-01-21] MEDS: Omeprazole CAP* 20 MG PO SCH (07:03)
[2017-01-21 07:04] LABS: BUN/Creatinine Ratio 9.3 (8-20); EGFR African American 4.9 (>60); EGFR Non-African American 3.8 (>60); Potassium 3.9 mmol/L (3.5-5.0)
[2017-01-21 07:05] LABS: Hemoglobin 5.9 g/dl (14.0-18.0)
--- NOTE | 2017-01-21 08:15 | PN ---
Subjective Date of Service: 01/21/17 Interval History: Seen and examined this AM received ativan at 5 this AM and now very sleepy. He can wake and answer questions Reported chest pain overnight without associated symptoms. He cannot relay the duration of pain. Now resolved. Numbness has resolved Objective Active Medications: Acetaminophen (Tylenol Tab*) 650 mg PO Q6H PRN PRN Reason: FEVER/PAIN Last Admin: 01/20/17 05:42 Dose: 650 mg Amlodipine Besylate (Norvasc Tab*) 5 mg PO DAILY [facility] Last Admin: 01/20/17 08:36 Dose: 5 mg Baclofen (Lioresal Tab*) 2.5 mg PO BID [facility] Last Admin: 01/20/17 21:14 Dose: 2.5 mg Calcitriol (Calcijex Inj*) 0.25 mcg IV MoWeFr@0900 [facility] Last Admin: 01/19/17 15:21 Dose: 0.25 mcg Docusate Sodium (Colace Cap*) 200 mg PO BID [facility] Last Admin: 01/20/17 21:15 Dose: 200 mg Heparin Sodium (Porcine) (Heparin Vial(*)) 5,000 units SUBCUT Q8HR [facility] Last Admin: 01/21/17 07:03 Dose: 5,000 units Melatonin (Melatonin (Nf)) 3 mg PO BEDTIME PRN; Protocol PRN Reason: Sleep Omeprazole (Prilosec Cap*) 20 mg PO DAILY@0600 [facility] Last Admin: 01/21/17 07:03 Dose: 20 mg Ondansetron HCl (Zofran Inj*) 4 mg IV Q6H PRN PRN Reason: NAUSEA Last Admin: 01/19/17 09:02 Dose: 4 mg Sevelamer Carbonate (Renvela Tab*) 1,600 mg PO TID WITH MEALS [facility] Last Admin: 01/20/17 17:02 Dose: 1,600 mg Vital Signs 01/20/17 01/20/17 01/20/17 09:00 10:00 11:00 Temperature Pulse Rate 89 87 84 Respiratory 20 18 16 Rate Blood Pressure 178/99 179/114 158/87 (mmHg) O2 Sat by Pulse 97 98 93 Oximetry 01/20/17 01/20/17 01/20/17 11:21 11:54 12:00 Temperature 99.4 F Pulse Rate 88 Respiratory 13 Rate Blood Pressure 170/94 (mmHg) O2 Sat by Pulse 98 96 Oximetry 01/20/17 01/20/17 01/20/17 13:00 13:55 14:00 Temperature Pulse Rate 84 91 90 Respiratory 17 19 23 Rate Blood Pressure 168/94 184/97 (mmHg) O2 Sat by Pulse 98 99 98 Oximetry 01/20/17 01/20/17 01/20/17 14:01 15:00 15:58 Temperature Pulse Rate 89 85 87 Respiratory 18 15 18 Rate Blood Pressure 171/88 146/85 166/98 (mmHg) O2 Sat by Pulse 97 94 100 Oximetry 01/20/17 01/20/17 01/20/17 16:00 16:15 16:27 Temperature 98.6 F Pulse Rate 85 87 86 Respiratory 25 19 15 Rate Blood Pressure 167/93 170/96 165/95 (mmHg) O2 Sat by Pulse 99 99 100 Oximetry 01/20/17 01/20/17 01/20/17 16:30 16:45 17:00 Temperature Pulse Rate 86 92 91 Respiratory 18 14 14 Rate Blood Pressure 158/84 165/92 163/86 (mmHg) O2 Sat by Pulse 100 99 96 Oximetry 01/20/17 01/20/17 01/20/17 17:15 17:30 17:45 Temperature Pulse Rate 90 91 93 Respiratory 14 20 18 Rate Blood Pressure 161/84 161/90 173/94 (mmHg) O2 Sat by Pulse 96 100 99 Oximetry 01/20/17 01/20/17 01/20/17 17:52 18:00 18:54 Temperature Pulse Rate 90 94 Respiratory 16 18 15 Rate Blood Pressure 162/93 164/90 (mmHg) O2 Sat by Pulse 96 99 Oximetry 01/20/17 01/20/17 01/20/17 19:00 20:00 20:14 Temperature 99.9 F Pulse Rate 89 92 90 Respiratory 18 18 18 Rate Blood Pressure 164/88 171/96 (mmHg) O2 Sat by Pulse 96 98 98 Oximetry 01/20/17 01/20/17 01/20/17 21:00 21:12 21:32 Temperature Pulse Rate 88 87 95 Respiratory 18 15 18 Rate Blood Pressure 163/88 172/89 164/89 (mmHg) O2 Sat by Pulse 95 95 94 Oximetry 01/20/17 01/20/17 01/20/17 22:00 22:01 22:02 Temperature Pulse Rate 88 88 Respiratory 18 16 19 Rate Blood Pressure 168/123 (mmHg) O2 Sat by Pulse 94 95 Oximetry 01/20/17 01/20/17 01/20/17 22:04 23:00 23:25 Temperature Pulse Rate 89 87 83 Respiratory 15 20 12 Rate Blood Pressure 172/90 157/87 (mmHg) O2 Sat by Pulse 96 100 100 Oximetry 01/20/17 01/20/17 01/21/17 23:26 23:52 00:00 Temperature 99.6 F Pulse Rate 89 Respiratory 12 16 Rate Blood Pressure 163/91 (mmHg) O2 Sat by Pulse 100 Oximetry 01/21/17 01/21/17 01/21/17 00:10 01:00 01:03 Temperature Pulse Rate 87 Respiratory 16 15 17 Rate Blood Pressure 156/83 (mmHg) O2 Sat by Pulse 100 Oximetry 01/21/17 01/21/17 01/21/17 01:06 02:00 02:01 Temperature 99.4 F Pulse Rate 86 Respiratory 14 13 Rate Blood Pressure 157/84 (mmHg) O2 Sat by Pulse 96 Oximetry 01/21/17 01/21/17 01/21/17 02:59 03:00 03:02 Temperature Pulse Rate 84 85 84 Respiratory 17 16 19 Rate Blood Pressure 159/90 156/90 (mmHg) O2 Sat by Pulse 100 100 100 Oximetry 01/21/17 01/21/17 01/21/17 03:54 04:00 05:00 Temperature 99.5 F Pulse Rate 85 85 Respiratory 17 17 Rate Blood Pressure 162/83 159/85 (mmHg) O2 Sat by Pulse 100 92 Oximetry 01/21/17 01/21/17 01/21/17 05:10 05:12 05:17 Temperature Pulse Rate 83 Respiratory 16 18 18 Rate Blood Pressure 147/80 (mmHg) O2 Sat by Pulse 96 Oximetry 01/21/17 01/21/17 06:00 06:26 Temperature Pulse Rate 87 Respiratory 15 17 Rate Blood Pressure 155/82 (mmHg) O2 Sat by Pulse 99 Oximetry Oxygen Devices in Use Now: None, Nasal Cannula Appearance: obese, NAD Eyes: No Scleral Icterus, PERRLA Ears/Nose/Mouth/Throat: Clear Oropharnyx, Mucous Membranes Moist Neck: NL Appearance and Movements; NL JVP, Trachea Midline Respiratory: Symmetrical Chest Expansion and Respiratory Effort, Clear to Auscultation Cardiovascular: RRR, - - 2/6 SHANNAN Abdominal: NL Sounds; No Tenderness; No Distention, No Hepatosplenomegaly Lymphatic: No Cervical Adenopathy Extremities: - - 1-2+ edema b/l LE Neurological: Alert and Oriented x 3, - - lethargic after admin of ativan Result Diagrams: 01/21/17 06:20 01/21/17 06:20 Microbiology and Other Data: Microbiology 01/19/17 16:30 Wound Gram Stain - Final Wound - Right Leg Tissue Culture - Preliminary No Growth Day 1 01/19/17 07:35 Nasal Screen MRSA (PCR)([facility]) - Final Nasal Mrsa Negative Assess/Plan/Problems-Billing Assessment: 51 yo M h/o HTN, DM2 p/w right hand and b/l leg "numbness" found with acute on chronic renal failure and anemia - Patient Problems (1) Chest pain Comment: ekg without e/o ischemia. 1st troponin elevated but in setting of ESRD. Repeat troponin pending (2) Numbness and tingling Comment: resolved Suspect in setting of metabolic derrangements. No e/o numbness on physical exam. The remainder of physical exam intact CT lumbar spine with multilevel degenerative dz. Suspect metabolic etiology in setting of current derrangements. (3) Anemia Comment: Suspected in setting of renal failure 1 U PRBC yesterday with minimal improvement. Second unit today 01/20 during dialysis with mininmal improvement 3rd unit PRBC 01/21 and recheck received 10k epo Goal Hb >7 (4) Acute kidney failure Comment: Suspect in setting of uncontrolled DM and HTN b/l rash on knees raises carlota of vasculitis; FELISA, ANCA all wnl dialysis again 01/21 rash biopsied and awaiting path Will likely need rat exterminator access/tunneled (5) Metabolic acidosis Comment: Bicarb drip stopped 01/21 in am. Additional dialysis 01/21 HD today (6) Diabetes Comment: presenting FSG <100 stop checking FSG (7) Hypertension Comment: norvasc Improved after initiation of HD (8) Hyperphosphatemia Comment: start sevelemer HD (9) DVT prophylaxis Comment: HSQ
[2017-01-21] MEDS: Docusate CAP* 100 MG PO SCH ×2 (09:09→21:42)
[2017-01-21] MEDS: amLODIPine TAB* 5 MG PO SCH (09:09)
[2017-01-21] MEDS: Sevelamer TAB* 800 MG PO SCH ×3 (09:09→17:34)
[2017-01-21] MEDS: Baclofen TAB* 10 MG PO SCH ×2 (09:09→21:41)
[2017-01-21] MEDS ORDERED: Heparin DIALYSIS ONLY(*) 1,000 UNITS/ML VIAL DIALYSIS ONE (09:30)
[2017-01-21 10:10] LABS: Troponin I 0.09 ng/mL (<0.04)
[2017-01-21 10:11] LABS: Calcium 6.2 mg/dL (8.6-10.3)
[2017-01-21 13:52] LABS: Hematocrit 23 % (42-52); Hemoglobin 7.7 g/dl (14.0-18.0)
[2017-01-21] MEDS ORDERED: Epoetin Alfa* 10,000 UNITS/ML VIAL SUBCUT ONE (15:00)
[2017-01-21] MEDS: Acetaminophen TAB* 325 MG PO PRN (21:42)
[2017-01-21] MEDS: CMCS: Melatonin (NF) 3 MG TAB PO PRN (21:45)
[2017-01-21] MEDS: Ondansetron INJ* 2 MG/ML VIAL IV PRN (21:52)
[2017-01-22] MEDS: Baclofen TAB* 10 MG PO SCH ×3 (03:37→21:23)
[2017-01-22] MEDS: Docusate CAP* 100 MG PO SCH ×3 (03:38→21:22)
[2017-01-22] MEDS: Ondansetron INJ* 2 MG/ML VIAL IV PRN (05:04)
[2017-01-22] MEDS: Heparin VIAL(*) 5000 UNITS/ML VIAL (FIVE THOUSAND) SUBCUT SCH ×3 (05:32→21:22)
[2017-01-22] MEDS: Omeprazole CAP* 20 MG PO SCH (05:38)
[2017-01-22 06:19] LABS: Hematocrit 21 % (42-52); Mean Corpuscular HGB Conc 33 g/dl (31-36); Mean Corpuscular Hemoglobin 32 pg (27-31); Mean Corpuscular Volume 98 fL (80-94); Mean Platelet Volume 10 um3 (7.4-10.4); Red Blood Count 2.14 10^6/ul (4.0-5.4); Red Cell Distribution Width 17 % (10.5-15); White Blood Count 8.9 10^3/ul (3.5-10.8)
[2017-01-22 06:24] LABS: Comments Flag Yes
[2017-01-22 06:26] LABS: Hemoglobin 6.9 g/dl (14.0-18.0)
[2017-01-22 06:30] LABS: EGFR African American 5.9 (>60); EGFR Non-African American 4.6 (>60); Potassium 3.8 mmol/L (3.5-5.0)
[2017-01-22 06:46] LABS: Calcium 6.4 mg/dL (8.6-10.3)
[2017-01-22] MEDS: Sevelamer TAB* 800 MG PO SCH ×3 (08:52→17:46)
[2017-01-22] MEDS: amLODIPine TAB* 5 MG PO SCH (08:53)
[2017-01-22] MEDS: CALCITRIOL 1 MCG/ML IV SCH (10:32)
--- NOTE | 2017-01-22 15:55 | PN ---
Subjective Date of Service: 01/22/17 Interval History: Feels weaker today. No numbness, no FARNSWORTH, N/V, LH Working with PT Tolerating HD well Feels rash on b/l knees is improving Objective Active Medications: Acetaminophen (Tylenol Tab*) 650 mg PO Q6H PRN PRN Reason: FEVER/PAIN Last Admin: 01/20/17 05:42 Dose: 650 mg Amlodipine Besylate (Norvasc Tab*) 5 mg PO DAILY [facility] Last Admin: 01/22/17 08:53 Dose: 5 mg Baclofen (Lioresal Tab*) 2.5 mg PO BID [facility] Last Admin: 01/22/17 08:53 Dose: 2.5 mg Calcitriol (Calcijex Inj*) 0.25 mcg IV MoWeFr@0900 [facility] Last Admin: 01/22/17 10:32 Dose: 0.25 mcg Docusate Sodium (Colace Cap*) 200 mg PO BID [facility] Last Admin: 01/22/17 08:52 Dose: 200 mg Heparin Sodium (Porcine) (Heparin Vial(*)) 5,000 units SUBCUT Q8HR [facility] Last Admin: 01/22/17 14:30 Dose: 5,000 units Heparin Sodium (Porcine) (Heparin Flush Picc/Ml/Cvc(*)) 0 ml IV FLUSH 0600, 1800 [facility] PRN Reason: Protocol Last Admin: 01/22/17 05:40 Dose: 1 ml Melatonin (Melatonin (Nf)) 3 mg PO BEDTIME PRN; Protocol PRN Reason: Sleep Omeprazole (Prilosec Cap*) 20 mg PO DAILY@0600 [facility] Last Admin: 01/22/17 05:38 Dose: 20 mg Ondansetron HCl (Zofran Inj*) 4 mg IV Q6H PRN PRN Reason: NAUSEA Last Admin: 01/22/17 05:04 Dose: 4 mg Sevelamer Carbonate (Renvela Tab*) 1,600 mg PO TID WITH MEALS [facility] Last Admin: 01/22/17 12:44 Dose: 1,600 mg Vital Signs 01/21/17 01/21/17 01/21/17 15:55 19:34 20:00 Temperature 97.4 F 98.7 F Pulse Rate 92 90 Respiratory 17 20 16 Rate Blood Pressure 167/88 150/75 (mmHg) O2 Sat by Pulse 100 98 Oximetry 01/21/17 01/22/17 01/22/17 23:25 03:43 07:48 Temperature 98.4 F 98.3 F 98.6 F Pulse Rate 85 84 92 Respiratory 17 17 18 Rate Blood Pressure 141/65 156/74 163/82 (mmHg) O2 Sat by Pulse 91 97 93 Oximetry 01/22/17 09:00 Temperature Pulse Rate Respiratory 18 Rate Blood Pressure (mmHg) O2 Sat by Pulse Oximetry Oxygen Devices in Use Now: None Appearance: obese, NAD Eyes: No Scleral Icterus, PERRLA Ears/Nose/Mouth/Throat: Mucous Membranes Moist, - - poor dentition Respiratory: Symmetrical Chest Expansion and Respiratory Effort, Clear to Auscultation Cardiovascular: RRR Abdominal: NL Sounds; No Tenderness; No Distention, No Hepatosplenomegaly Lymphatic: No Cervical Adenopathy Extremities: - - 1+ le edema Skin: - - b/l pustalar rash on b/l knees Neurological: Alert and Oriented x 3 Result Diagrams: 01/22/17 05:25 01/22/17 05:25 Microbiology and Other Data: Microbiology 01/19/17 16:30 Wound Gram Stain - Final Wound - Right Leg Tissue Culture - Preliminary No Growth Day 1 01/19/17 07:35 Nasal Screen MRSA (PCR)([facility]) - Final Nasal Mrsa Negative Assess/Plan/Problems-Billing Assessment: 51 yo M h/o HTN, DM2 p/w right hand and b/l leg "numbness" found with acute on chronic renal failure and anemia - Patient Problems (1) Acute kidney failure Comment: Suspect in setting of uncontrolled DM and HTN FELISA, ANCA all wnl dialysis started 01/20 again on 01/21 Consulted surgery for tunneled catheter now that pt is chronic dialsysis dependent (2) Anemia Comment: Suspected in setting of renal failure 1 U PRBC 01/19 with minimal improvement. Second unit 01/20 during dialysis with mininmal improvement 3rd unit PRBC 01/21 with improvement then decline on 01/22 4th Unit 01/23 and recheck tomorrow Check for e/o hemolysis - LDH wnl, haptoglobin pending. Stool guiac pending received 10k epo twice (20k total) Goal Hb >7 (3) Folliculitis Comment: improving without intervention hold on antifungals and antibiotics fungal cx from biopsy pending (4) Chest pain Comment: ekg without e/o ischemia. 1st troponin elevated but in setting of ESRD. Repeat troponin pending (5) Numbness and tingling Comment: resolved Suspect in setting of metabolic derrangements. No e/o numbness on physical exam. The remainder of physical exam intact CT lumbar spine with multilevel degenerative dz. Suspect metabolic etiology in setting of current derrangements. (6) Metabolic acidosis Comment: Bicarb drip stopped 01/21 in am. Additional dialysis 01/21 HD today (7) Diabetes Comment: presenting FSG <100 stop checking FSG (8) Hypertension Comment: norvasc Improved after initiation of HD (9) Hyperphosphatemia Comment: start sevelemer HD (10) DVT prophylaxis Comment: HSQ
[2017-01-22] MEDS ORDERED: Heparin DIALYSIS ONLY(*) 1,000 UNITS/ML VIAL DIALYSIS ONE (18:00)
[2017-01-22] MEDS ORDERED: Epoetin Alfa* 10,000 UNITS/ML VIAL IV ONE (18:00)
[2017-01-23] MEDS: Omeprazole CAP* 20 MG PO SCH (05:35)
[2017-01-23] MEDS: Heparin VIAL(*) 5000 UNITS/ML VIAL (FIVE THOUSAND) SUBCUT SCH ×3 (05:35→21:52)
[2017-01-23 06:52] LABS: Hematocrit 22 % (42-52); Hemoglobin 7.6 g/dl (14.0-18.0); Mean Corpuscular HGB Conc 34 g/dl (31-36); Mean Corpuscular Hemoglobin 33 pg (27-31); Mean Corpuscular Volume 96 fL (80-94); Mean Platelet Volume 10 um3 (7.4-10.4); Red Blood Count 2.33 10^6/ul (4.0-5.4); Red Cell Distribution Width 17 % (10.5-15); White Blood Count 9.3 10^3/ul (3.5-10.8)
[2017-01-23 07:11] LABS: BUN/Creatinine Ratio 8.6 (8-20); EGFR African American 7.8 (>60); EGFR Non-African American 6.1 (>60); Phosphorus 5.3 mg/dL (2.5-5.0); Potassium 3.6 mmol/L (3.5-5.0)
[2017-01-23] MEDS: Sevelamer TAB* 800 MG PO SCH ×3 (08:15→17:22)
[2017-01-23] MEDS: Docusate CAP* 100 MG PO SCH ×2 (08:15→21:52)
[2017-01-23] MEDS: amLODIPine TAB* 5 MG PO SCH (08:31)
[2017-01-23] MEDS: Baclofen TAB* 10 MG PO SCH (08:31)
[2017-01-23] MEDS ORDERED: ceFAZolin 2 GM PREMIX (*) 2 GM/50 ML BAG IVPB ONE (09:20)
[2017-01-23] MEDS ORDERED: Heparin VIAL(*) 5000 UNITS/ML VIAL (FIVE THOUSAND) ONE ×2 (09:30→10:47)
[2017-01-23] MEDS ORDERED: Lidocaine 1% INJ* 10 MG/ML 30 ML SDV ONE (09:31)
[2017-01-23] MEDS ORDERED: Midazolam* 1 MG/ML 5 ML VIAL (5 MG) ONE (09:55)
[2017-01-23] MEDS ORDERED: fentaNYL* 50 MCG/ML 2 ML VIAL (100 MCG VIAL) ONE (10:04)
[2017-01-23] MEDS ORDERED: Midazolam* 1 MG/ML 2 ML VIAL (2 MG) ONE (10:42)
[2017-01-23] MEDS ORDERED: HYDROmorphone INJ* 1 MG/ML CARPUJECT SYRINGE IV PRN (10:48)
[2017-01-23] MEDS ORDERED: Ondansetron INJ* 2 MG/ML VIAL IV PRN (10:48)
[2017-01-23] MEDS ORDERED: fentaNYL* 50 MCG/ML 2 ML VIAL (100 MCG VIAL) IV PRN (10:48)
[2017-01-23] MEDS ORDERED: Acetaminophen TAB* 325 MG ONE (11:45)
[2017-01-23] MEDS: Acetaminophen TAB* 325 MG PO PRN (11:45)
--- NOTE | 2017-01-23 11:50 | SURGPN ---
Brief Operative Note - Surgery Procedures: PRE/POSTOP DX: ESRD PROC: PLACEMENT OF HEMOSPLIT CATHETER; EXCHANGE OVER WIRE SURG: MECENAS ASSIST: NONE ANES: LOCAL/MAC; SANITO EBL: MIN SPEC/DRAIN/COMPL: NONE COND: STABLE TO RR. FINDINGS: 14.5 FR/[address] VIA RIJ.
--- NOTE | 2017-01-23 12:19 | RAD ---
INDICATION: Hemodialysis catheter placement COMPARISONS: None relevant TECHNIQUE: Fluoroscopy was provided for a vascular access procedure. Total fluoroscopy time is: 3.6 seconds FINDINGS: Spot images demonstrate a internal jugular venous catheter with the tip overlying the superior vena cava. IMPRESSION: FLUOROSCOPY WAS PROVIDED FOR A VASCULAR ACCESS PROCEDURE CPT II Codes: 6045F
--- NOTE | 2017-01-23 15:06 | PN ---
Subjective Date of Service: 01/23/17 Interval History: Seen after placement of hemocath Area of procedure is sore otherwise no complaints Thinks rash improving Objective Active Medications: Acetaminophen (Tylenol Tab*) 650 mg PO Q6H PRN PRN Reason: FEVER/PAIN Last Admin: 01/23/17 11:45 Dose: 650 mg Amlodipine Besylate (Norvasc Tab*) 5 mg PO DAILY [facility] Last Admin: 01/23/17 08:31 Dose: Not Given Baclofen (Lioresal Tab*) 2.5 mg PO BID [facility] Last Admin: 01/23/17 08:31 Dose: Not Given Calcitriol (Calcijex Inj*) 0.25 mcg IV MoWeFr@0900 [facility] Last Admin: 01/22/17 10:32 Dose: 0.25 mcg Docusate Sodium (Colace Cap*) 200 mg PO BID [facility] Last Admin: 01/23/17 08:15 Dose: Not Given Fentanyl Citrate (Fentanyl*) 25 mcg IV Q2M PRN PRN Reason: PAIN - MODERATE Heparin Sodium (Porcine) (Heparin Vial(*)) 5,000 units SUBCUT Q8HR [facility] Last Admin: 01/23/17 14:19 Dose: 5,000 units Heparin Sodium (Porcine) (Heparin Flush Picc/Ml/Cvc(*)) 0 ml IV FLUSH 0600, 1800 [facility] PRN Reason: Protocol Last Admin: 01/23/17 05:35 Dose: 1 ml Hydromorphone HCl (Dilaudid Injic*) 0.1 mg IV Q5M PRN PRN Reason: PAIN - SEVERE Melatonin (Melatonin (Nf)) 3 mg PO BEDTIME PRN; Protocol PRN Reason: Sleep Omeprazole (Prilosec Cap*) 20 mg PO DAILY@0600 [facility] Last Admin: 01/23/17 05:35 Dose: 20 mg Ondansetron HCl (Zofran Inj*) 4 mg IV Q6H PRN PRN Reason: NAUSEA Last Admin: 01/22/17 05:04 Dose: 4 mg Ondansetron HCl (Zofran Inj*) 4 mg IV ONCE PRN PRN Reason: NAUSEA/VOMITING Sevelamer Carbonate (Renvela Tab*) 1,600 mg PO TID WITH MEALS [facility] Last Admin: 01/23/17 14:19 Dose: 1,600 mg Vital Signs 01/22/17 01/22/17 01/22/17 15:43 19:24 20:00 Temperature 97.6 F 98.3 F Pulse Rate 85 91 Respiratory 20 16 16 Rate Blood Pressure 145/78 (mmHg) O2 Sat by Pulse 96 97 Oximetry 01/22/17 01/22/17 01/23/17 21:06 23:45 04:31 Temperature 98.5 F 99.5 F Pulse Rate 89 91 82 Respiratory 20 16 16 Rate Blood Pressure 166/88 151/76 192/65 (mmHg) O2 Sat by Pulse 95 93 96 Oximetry 01/23/17 01/23/17 01/23/17 04:35 07:46 07:54 Temperature 98.9 F Pulse Rate 83 Respiratory 18 Rate Blood Pressure 168/88 154/88 (mmHg) O2 Sat by Pulse 96 94 Oximetry 01/23/17 01/23/17 01/23/17 08:00 11:07 11:15 Temperature 98.2 F Pulse Rate 90 88 Respiratory 16 16 16 Rate Blood Pressure 159/93 158/84 (mmHg) O2 Sat by Pulse 98 96 Oximetry 01/23/17 01/23/17 01/23/17 11:30 11:45 12:00 Temperature Pulse Rate 86 86 86 Respiratory 16 18 16 Rate Blood Pressure 155/84 162/85 155/87 (mmHg) O2 Sat by Pulse 98 92 96 Oximetry 01/23/17 01/23/17 01/23/17 12:15 12:30 12:56 Temperature 97.5 F Pulse Rate 86 87 84 Respiratory 16 18 18 Rate Blood Pressure 169/87 158/89 179/96 (mmHg) O2 Sat by Pulse 99 98 97 Oximetry Oxygen Devices in Use Now: None Appearance: NAD Eyes: No Scleral Icterus, PERRLA Ears/Nose/Mouth/Throat: Clear Oropharnyx, Mucous Membranes Moist Neck: NL Appearance and Movements; NL JVP, Trachea Midline Respiratory: Symmetrical Chest Expansion and Respiratory Effort, Clear to Auscultation Cardiovascular: RRR Abdominal: NL Sounds; No Tenderness; No Distention, No Hepatosplenomegaly Lymphatic: No Cervical Adenopathy Extremities: No Edema Skin: - - right heal ulcer, left foot ulcer between 4th and 5th toe Neurological: Alert and Oriented x 3, NL Muscle Strength and Tone Result Diagrams: 01/23/17 06:22 01/23/17 06:22 Microbiology and Other Data: Microbiology 01/19/17 16:30 Wound Gram Stain - Final Wound - Right Leg Tissue Culture - Preliminary No Growth Day 1 01/19/17 07:35 Nasal Screen MRSA (PCR)([facility]A) - Final Nasal Mrsa Negative Assess/Plan/Problems-Billing Assessment: 51 yo M h/o HTN, DM2 p/w right hand and b/l leg "numbness" found with acute on chronic renal failure and anemia - Patient Problems (1) Ulcer Comment: right heal and left 4th/5th toe wound care c/s appreciated (2) Acute kidney failure Comment: Suspect in setting of uncontrolled DM and HTN FELISA, ANCA all wnl dialysis started 01/[address] 01/23 Plan on d/c tomorrow after surgery and to follow up for PD catheter placement (3) Anemia Comment: Suspected in setting of renal failure 1 U PRBC 01/19 with minimal improvement. Second unit 01/20 during dialysis with mininmal improvement 3rd unit PRBC 01/21 with improvement then decline on 01/22 4th Unit 01/22 Check for e/o hemolysis - LDH wnl, haptoglobin pending. Stool guiac pending received 10k epo twice (20k total) Goal Hb >7 (4) Folliculitis Comment: improving without intervention hold on antifungals and antibiotics fungal cxand bacterial cultures negative from biopsy (5) Chest pain Comment: ekg without e/o ischemia. 1st troponin elevated but in setting of ESRD. Repeat troponin pending (6) Numbness and tingling Comment: resolved Suspect in setting of metabolic derrangements. No e/o numbness on physical exam. The remainder of physical exam intact CT lumbar spine with multilevel degenerative dz. Suspect metabolic etiology in setting of current derrangements. (7) Metabolic acidosis Comment: Bicarb drip stopped 01/21 in am. Additional dialysis 01/21 HD (8) Diabetes Comment: presenting FSG <100 stop checking FSG (9) Hypertension Comment: norvasc 5 held today prior to procedure increase to 10mg tomorrow 01/24 (10) Hyperphosphatemia Comment: start sevelemer HD (11) DVT prophylaxis Comment: HSQ
[2017-01-23 20:38] LABS: HS/VZ Source TISSUE RIGHT LEG; Varicella Zoster Result Negative (Negative); Varicella Zoster Source TISSUE RIGHT LEG
[2017-01-24] MEDS: Acetaminophen TAB* 325 MG PO PRN (00:23)
[2017-01-24] MEDS: CMCS: Melatonin (NF) 3 MG TAB PO PRN (00:24)
--- NOTE | 2017-01-24 04:50 | OP ---
CC: Sreekanth Johnson MD.* DATE OF OPERATION: 01/23/17 - ROOM #410 DATE OF : 63 SURGEON: Radhames Brown MD. FARM PRODUCT PURCHASER: None. ANESTHESIOLOGIST: Miguel Smith MD. ANESTHESIA: Local, MAC PRE-OP DIAGNOSIS: End-stage renal disease. POST-OP DIAGNOSIS: End-stage renal disease. OPERATIVE PROCEDURE: Placement of right internal jugular tunneled cuffed hemodialysis (HemoSplit) catheter, exchanged over guidewire. ESTIMATED BLOOD LOSS: Minimal. IV FLUIDS: Crystalloid. SPECIMEN: None. DRAINS: None. COMPLICATIONS: None. DESCRIPTION OF PROCEDURE: The patient was brought to the operating room and placed on the table supine. Sequential compression devices were placed on both lower extremities and a warming blanket was placed. His indwelling right-sided temporary hemodialysis catheter was prepped with Betadine as well as the surrounding skin and then sterilely draped and a time-out was performed. He did receive intravenous antibiotics. Fluoroscopic guidance was used for the case and the indwelling catheter was positioned and the superior vena cava was confirmed. The sutures on the catheter was then cut and the venous limb of the catheter was cut and the guidewire was advanced into the superior vena cava and the catheter was backed out and discarded. Pressure was applied over the IJ site in order to achieve hemostasis while the rest of the procedure was performed. The patient had been measured and marked for the catheter placement and local anesthetic was infiltrated in the area of the proposed tunnel and exit site on the right upper chest. The exit site incision was created with 15-blade scalpel and a counter incision was created at the guidewire insertion site. The 14.5-Slovak 19 cm Alphacurve HemoSplit catheter was back tunneled and the cuff was positioned 2 to 3 cm beyond the exit site. The dilation was performed over the guidewire in serial fashion and the peel-away sheath and dilator were advanced without difficulty under fluoroscopic guidance. Then the guidewire and dilator were removed. The catheter was then advanced into the superior vena cava and the peel-away sheath was removed. Fluoroscopic guidance confirmed the correct position of the catheter and aspiration and flushing of the catheter confirmed its patency. The catheter was secured with 3-0 Prolene suture at two sites on the flange of the catheter and the exit site was closed with two sutures of 3-0 Prolene. The counter incision was closed with 3-0 Vicryl for the deep dermis and 3-0 Prolene for the skin. The site was dressed with Tegaderm dressing and the catheter was instilled with appropriate amounts of heparin. The patient tolerated the procedure well and was subsequently transferred to Recovery in stable condition. [id number]/[facility] #: [id number] MTDD
[2017-01-24] MEDS: Heparin VIAL(*) 5000 UNITS/ML VIAL (FIVE THOUSAND) SUBCUT SCH (05:39)
[2017-01-24] MEDS: Omeprazole CAP* 20 MG PO SCH (05:39)
[2017-01-24 08:03] LABS: Hematocrit 24 % (42-52); Hemoglobin 7.8 g/dl (14.0-18.0); Mean Corpuscular HGB Conc 33 g/dl (31-36); Mean Corpuscular Hemoglobin 33 pg (27-31); Mean Corpuscular Volume 97 fL (80-94); Mean Platelet Volume 10 um3 (7.4-10.4); Red Blood Count 2.41 10^6/ul (4.0-5.4); Red Cell Distribution Width 17 % (10.5-15); White Blood Count 8.5 10^3/ul (3.5-10.8)
[2017-01-24 08:17] LABS: BUN/Creatinine Ratio 8.7 (8-20); Calcium 7.4 mg/dL (8.6-10.3); EGFR African American 7.1 (>60); EGFR Non-African American 5.5 (>60); Potassium 3.8 mmol/L (3.5-5.0)
[2017-01-24] MEDS ORDERED: amLODIPine TAB* 5 MG PO SCH (09:00)
[2017-01-24] MEDS: Sevelamer TAB* 800 MG PO SCH ×2 (09:01→12:32)
[2017-01-24] MEDS: Docusate CAP* 100 MG PO SCH (09:02)
[2017-01-24] MEDS ORDERED: Epoetin Alfa* 10,000 UNITS/ML VIAL IV ONE (14:00)
[2017-01-24] MEDS ORDERED: Heparin DIALYSIS ONLY(*) 1,000 UNITS/ML VIAL DIALYSIS ONE (14:00)
[2017-01-24 16:45] VITALS: BP 152/88
--- NOTE | 2017-01-25 09:23 | DS ---
CC: [facility]; Dr. Johnson; Wound Care Clinic.* DISCHARGE SUMMARY: DATE OF ADMISSION: 01/19/17 DATE OF DISCHARGE: 01/24/17 PRIMARY CARE PROVIDER: [facility]. PRIMARY DIAGNOSES: 1. New onset of chronic renal failure, status post initiation of hemodialysis. 2. Type 2 diabetes. 3. Hyperlipidemia. 4. Hypertension. 5. Gout. 6. Bilateral lower extremity chronic ulcers. 7. Anemia. 8. Folliculitis. 9. Metabolic acidosis. 10. Hypophosphatemia. SECONDARY DIAGNOSES: 1. Demand ischemia with troponin I of 0.1 on presentation. 2. Folliculitis. MEDICATIONS ON DISCHARGE: Include: 1. Amlodipine 10 mg daily. 2. Renvela 1600 mg 3 times a day with meals. 3. Docusate 200 mg twice daily. PERTINENT LABORATORY DATA: Hemoglobin on presentation 5.5 and 7.8 on discharge , status post receipt of 4 units of packed red blood cells over the course of this hospital stay. Reticulocyte count 2.2, reticulocyte production index 0.3. BUN on presentation 181, creatinine on presentation 18. FELISA and ANCA are all negative. Skin biopsy pustular folliculitis. HISTORY OF PRESENT ILLNESS AND HOSPITAL COURSE: This is a 52-year-old man with a past medical history as outlined in the history of present illness on the day of admission who has not seen a physician over a year after Dr. Glasgow retired. He stopped taking his medication approximately a year ago. He presented to the hospital with onset of right hand and bilateral lower extremity tingling. On presentation to the emergency room he was found to be in severe metabolic acidosis with new onset renal failure, lab values as indicated above. Bicarbonate on presentation is 7, also found to be severely anemic. Hemoglobin of 5.5. Patient was transfused packed red blood cells, initiated on hemodialysis as well as bicarbonate drip prior to the initiation of hemodialysis. With hemodialysis his electrolyte derangements improved including his hypophosphatemia, hyperkalemia, hypocalcemia. The patient was given a total of 20,000 units of Epogen. 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 Fungal and bacterial cultures remained negative. Patient's numbness in the hand and the bilateral lower extremities improved with initiation of hemodialysis. It was thought to be metabolic in effect. The patient was found to have a nonhealing ulcer in his left foot between his 4th to 5th toe. He was evaluated by Wound Care. He was counselled to keep clean gauze between his toes and rest his feet. Referral to Wound Care on discharge was made. The patient had a tunneled catheter placed in the operating room prior to discharge and was initiated hemodialysis. He is to have it at [facility] and continue HD on Sunday, , Sunday with first to be on Sunday after discharge. He remained hemodynamically stable. His hemoglobins remained stable. He was ambulating without difficulty. There are no complications during the patient's hospital stay. Did discuss with this patient, the option of peritoneal dialysis in the future. However, he would like to discuss it further with Dr. Johnson. I will not refer to surgery at this time to be discussed further. There is followup with Dr. Johnson. At followup please: 1. Ensure the patient follows up with Wound Care Clinic for lower extremity nonhealing ulcer. 2. Please ensure the patient follows up with Dr. Johnson for continued management of his chronic kidney disease or his end-stage renal disorder and evaluation for peritoneal dialysis. 3. Please ensure blood pressure control, started on amlodipine 10 mg daily with adequate control, in conjunction with hemodialysis. 4. The patient required no medications for his diabetes during the course of his hospital stay, please continue to evaluate when diet is liberalized to include other foods outside the hospital, manage as appropriate. Reason to return to the hospital included but not limited to recurrent or worsening symptoms including numbness or tingling in any extremity, difficulty speaking, loss of consciousness, near loss of consciousness, increased fatigue, shortness of breath or chest pain, bleeding from any source, inability to obtain or tolerate his mediations, or inability to access hemodialysis was discussed with the patient, he acknowledged understanding. A letter was sent to the patient's employer indicating his stay at the hospital in order to qualify him for short-term disability. TIME SPENT: Greater than 60 minutes was spent on the discharge of the patient, greater than half was spent [id number] with the patient. [id number]/[facility] #: [id number] MTDD
--- NOTE | 2017-01-29 22:07 | ED ---
Ze Reilly Angela, scribed for Geo Loyd MD on 01/19/17 at 0325 . Complex/Multi-Sys Presentation - HPI Summary HPI Summary: This pt is a 50 y/o male presenting to [facility] c/o right hand and bilateral leg numbness s/p lifting something heavy. 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 He additionally c /o back pain. Pt denies urinary or bowel incontinence. He denies any prior hx of back pain. Pt denies fall or trauma. He notes he is able to ambulate. Pt reports a pruritic rash on his legs that began 2 weeks ago. He attributes his rash to bed bugs. NKDA. Pt denies taking any current medication. PMHx includes diabetes. Pt states he has not taken any medications in the last year for diabetes, was taking lantus. He notes he has not established a PCP. - History Of Current Complaint Chief Complaint: EDGeneral Hx Obtained From: Patient Onset/Duration: Sudden Onset, Lasting Hours, Still Present Timing: Constant Location: Pain At: - back Associated Signs And Symptoms: Positive: Back Pain, Other - POS: right hand numbness, bilateral leg numbness, rash. NEG: incontinence, fall, or injury. - Allergies/Home Medications Allergies/Adverse Reactions: Allergies Allergy/AdvReac Type Severity Reaction Status Date / Time No Known Allergies Allergy Verified 05/20/16 10:55 PMH/Surg Hx/FS Hx/Imm Hx Endocrine/Hematology History: Reports: Hx Diabetes - peripheral neuropathy Denies: Hx Anticoagulant Therapy, Hx Thyroid Disease Cardiovascular History: Reports: Hx Hypertension Denies: Hx Congestive Heart Failure, Hx Deep Vein Thrombosis, Hx Myocardial Infarction, Hx Pacemaker/ICD Respiratory History: Reports: Hx Asthma - Bronchospasm/albuterol use. , Hx Seasonal Allergies Denies: Hx Chronic Obstructive Pulmonary Disease (COPD), Hx Lung Cancer GI History: Denies: Hx Gall Bladder Disease, Hx Gastrointestinal Bleed, Hx Ulcer, Hx Urosepsis History: Denies: Hx Kidney Stones, Hx Renal Disease Musculoskeletal History: Reports: Hx Arthritis - HANDS, Hx Gout, Other Musculoskeletal History Sensory History: Reports: Hx Contacts or Glasses - READING GLASSES Denies: Hx Cataracts, Hx Glaucoma, Hx Hearing Aid Opthamlomology History: Reports: Hx Contacts or Glasses - READING GLASSES Denies: Hx Cataracts, Hx Glaucoma Neurological History: Denies: Hx Dementia, Hx Migraine, Hx Seizures, Hx Transient Ischemic Attacks (TIA) Psychiatric History: Denies: Hx Anxiety, Hx Depression, Hx Panic Disorder, Hx Schizophrenia, Hx Bipolar Disorder - Surgical History Surgery Procedure, Year, and Place: left second toe amputation 2009. Left ankle ORIF. RIGHT GREAT TOE AMPUTATION 2012, ALL OTHER TOES AMPUTATED 12/2014. HERNIA A CHILD Hx Anesthesia Reactions: No Infectious Disease History: No Infectious Disease History: Reports: Hx Shingles Denies: Hx Hepatitis, Hx Human Immunodeficiency Virus (HIV), Traveled Outside the [place] in Last 30 Days - Family History Known Family History: Positive: Hypertension - Social History Alcohol Use: Rare Substance Use Type: Reports: None Hx Tobacco Use: No Smoking Status (MU): Never Smoked Tobacco Review of Systems Negative: Fever, Chills Negative: incontinence - urinary or bowel Positive: Other - back pain Positive: Rash Positive: Numbness - right hand and bilateral legs All Other Systems Reviewed And Are Negative: Yes Physical Exam - Summary Physical Exam Summary: Appearance: Well-appearing, Well-nourished Skin: Warm, Dry. Macular rash confined to the lower thigh and lower legs bilaterally. No evidence for cellulitis. Eyes: Normal, PERRL, EOMI, sclera anicteric ENT: Normal Neck: Supple, nontender Respiratory: Clear to auscultation Cardiovascular: S1, S2, no murmur, no rub, no gallop Abdomen: Soft, nontender, no organomegaly Bowel sounds: Present Musculoskeletal: Strength/ROM Intact, pulses symmetrical. Edema 3+ in bilateral LE. Neurological: Normal, awake and alert, cranial nerves II-XII wnl, follows commands, gait not tested, sensation intact to pin and light touch. Moving all 4 extremities. Strength is symmetrical. Psychiatric: affect normal, behavior appropriate, dressed appropriately, judgment intact Triage Information Reviewed: Yes Vital Signs On Initial Exam: Initial Vitals Temp Pulse Resp BP Pulse Ox 98.9 F 85 14 173/87 97 01/19/17 01:18 01/19/17 01:18 01/19/17 01:18 01/19/17 01:18 01/19/17 01:18 Vital Signs Reviewed: Yes - Jarvis Coma Scale Coma Scale Total: 15 Diagnostics - Vital Signs Vital Signs Temp Pulse Resp BP Pulse Ox 01/19/17 01:18 98.9 F 85 14 173/87 97 - Laboratory Result Diagrams: 01/19/17 03:47 01/19/17 03:47 Lab Statement: Any lab studies that have been ordered have been reviewed, and results considered in the medical decision making process. - CT Lumbar spine CT CT Interpretation: Positive (See Comments) - IMPRESSION: disc degenerative disease. ED physician has reviewed this radiology report and agrees. CT Interpretation Completed By: Radiologist Complex Multi-Symp Course/Dx Assessment/Plan: Pt is a 50 y/o male who presents with right hand and bilateral leg numbness s/p lifting something heavy. He additionally c/o back pain. Lumbar spine CT shows degenerative disc disease. Labs show hemoglobin 5.5, RBC of 1.61 , hematocrit of 17, carbon dioxide of 7, creatinine of 18.24. I discussed the pt 's case with Dr. Licea, who has accepted the pt for admission. Pt will be admitted with renal failure. - Diagnoses Provider Diagnoses: Renal failure - Physician Notifications Discussed Care Of Patient With: Nitin Licea Time Discussed With Above Provider: 04:36 Instructed by Provider To: Other - I discussed the pt's case with Dr. Licea, who accepted the pt for admission. Discharge - Discharge Plan Condition: Stable Disposition: ADMITTED TO [facility] Referrals: No Primary Care Phys,NOPCP [Primary Care Provider] - The documentation as recorded by the Ze peoples Angela accurately reflects the service I personally performed and the decisions made by me, Geo Loyd MD.
== END 2017-01-24 16:50 | disposition home or self-care (01) | DRG 460 ==
LOC: ED 01:16 → ICU 06:09 → MED 01-21 15:40
PROVIDERS: ADMIT Hospitalist; ATTEND Internal Medicine
PROC: 05HM33Z Insertion of Infusion Device into Right Internal Jugular Vein, Percutaneous Approach (ICD-10-PCS; 2017-01-19)
PROC: B543ZZA Ultrasonography of Right Jugular Veins, Guidance (ICD-10-PCS; 2017-01-19)
PROC: 30233R1 Transfusion of Nonautologous Platelets into Peripheral Vein, Percutaneous Approach (ICD-10-PCS; 2017-01-19)
PROC: 5A1D70Z Performance of Urinary Filtration, Intermittent, Less than 6 Hours Per Day (ICD-10-PCS; principal; 2017-01-20)
PROC: 5A1D70Z Performance of Urinary Filtration, Intermittent, Less than 6 Hours Per Day (ICD-10-PCS; 2017-01-21)
PROC: 5A1D70Z Performance of Urinary Filtration, Intermittent, Less than 6 Hours Per Day (ICD-10-PCS; 2017-01-22)
PROC: 0JH63XZ Insertion of Tunneled Vascular Access Device into Chest Subcutaneous Tissue and Fascia, Percutaneous Approach (ICD-10-PCS; 2017-01-23)
PROC: 02HV33Z Insertion of Infusion Device into Superior Vena Cava, Percutaneous Approach (ICD-10-PCS; 2017-01-23)
PROC: B518ZZA Fluoroscopy of Superior Vena Cava, Guidance (ICD-10-PCS; 2017-01-23)
PROC: 5A1D70Z Performance of Urinary Filtration, Intermittent, Less than 6 Hours Per Day (ICD-10-PCS; 2017-01-24)
DX: N17.9 Acute kidney failure, unspecified (principal); I12.0 Hypertensive chronic kidney disease with stage 5 chronic kidney disease or end stage renal disease; E11.21 Type 2 diabetes mellitus with diabetic nephropathy; I24.8 Other forms of acute ischemic heart disease; E87.2 Acidosis; E83.39 Other disorders of phosphorus metabolism; E83.51 Hypocalcemia; L97.419 Non-pressure chronic ulcer of right heel and midfoot with unspecified severity; Z68.41 Body mass index [BMI] 40.0-44.9, adult; E11.22 Type 2 diabetes mellitus with diabetic chronic kidney disease; E78.5 Hyperlipidemia, unspecified; M10.9 Gout, unspecified; J44.9 Chronic obstructive pulmonary disease, unspecified; E66.9 Obesity, unspecified; N18.6 End stage renal disease; D63.1 Anemia in chronic kidney disease; E87.5 Hyperkalemia; G47.00 Insomnia, unspecified; F41.9 Anxiety disorder, unspecified; R20.0 Anesthesia of skin; R21 Rash and other nonspecific skin eruption; L97.519 Non-pressure chronic ulcer of other part of right foot with unspecified severity; L73.9 Follicular disorder, unspecified; L01.02 Bockhart's impetigo; Z89.421 Acquired absence of other right toe(s); Z89.422 Acquired absence of other left toe(s); Z82.49 Family history of ischemic heart disease and other diseases of the circulatory system; Z82.0 Family history of epilepsy and other diseases of the nervous system; Z99.2 Dependence on renal dialysis
CPT/HCPCS: 11100; 36415; 71010; 72131; 76000; 76775; 80048; 80053; 80074; 81003; 81015; 82565; 82607; 82728; 82746; 82803; 83010; 83516; 83540; 83550; 83615; 83735; 84100; 84443; 84484; 84520; 85014; 85018; 85025; 85027; 85045; 85610; 85652; 85730; 86038; 86140; 86592; 86850; 86900; 86901; 86922; 87070; 87102; 87205; 87529; 87641; 87798; 88305; 88312; 90935; 93005; 94760; A9270-GY; C1750; G0257; J0636; J0690; J0885; J1644; J2001; J2060; J2250; J2405; J2597; J3010; P9040

== ENCOUNTER 2017-01-30 07:21 | Observation (INO) | payer BC ==
[2017-01-30 07:55] LABS: Hematocrit 25 % (42-52); Hemoglobin 7.9 g/dl (14.0-18.0); Mean Corpuscular HGB Conc 32 g/dl (31-36); Mean Corpuscular Hemoglobin 32 pg (27-31); Mean Corpuscular Volume 100 fL (80-94); Mean Platelet Volume 9 um3 (7.4-10.4); Red Blood Count 2.46 10^6/ul (4.0-5.4); Red Cell Distribution Width 17 % (10.5-15); White Blood Count 9.8 10^3/ul (3.5-10.8)
[2017-01-30 08:10] LABS: BUN/Creatinine Ratio 6.8 (8-20); EGFR African American 9.3 (>60); EGFR Non-African American 7.2 (>60); Globulin 2.9 g/dL (2-4); Magnesium 1.6 mg/dL (1.9-2.7); Potassium 4.3 mmol/L (3.5-5.0); Total Bilirubin 0.4 mg/dL (0.2-1.0); Total Protein 5.9 g/dL (6.4-8.9)
[2017-01-30 08:13] LABS: Troponin I 0.09 ng/mL (<0.04)
--- NOTE | 2017-01-30 08:40 | RAD ---
HISTORY: Shortness of breath COMPARISONS: January 19, 2017 VIEWS: 2: Frontal and lateral views of the chest. FINDINGS: CARDIOMEDIASTINAL SILHOUETTE: The cardiomediastinal silhouette is normal. DESMOND: The desmond are normal. PLEURA: The costophrenic angles are sharp. No pleural abnormalities are noted. LUNG PARENCHYMA: There is a diffuse pattern of increased reticular opacification. There is hyperinflation. ABDOMEN: The upper abdomen is clear. There is no subphrenic gas. BONES AND SOFT TISSUES: No bone or soft tissue abnormalities are noted. OTHER: The right internal jugular venous catheter is noted overlying the superior vena cava. IMPRESSION: 1. LINES AND TUBES ABOVE. 2. HYPERINFLATION. 3. MILD PULMONARY INTERSTITIAL EDEMA
[2017-01-30 09:00] LABS: TSH (Thyroid Stimulating Horm) 5.42 mcIU/mL (0.34-5.60)
[2017-01-30] MEDS ORDERED: Ondansetron INJ* 2 MG/ML VIAL IV PRN (09:47)
[2017-01-30] MEDS ORDERED: Acetaminophen TAB* 325 MG PO PRN (09:47)
[2017-01-30] MEDS ORDERED: Dextrose 50% Syringe 50 ML* 25 GM/50 ML SYRINGE IV PUSH PRN (09:49)
[2017-01-30 10:06] LABS: HDL Cholesterol 37.1 mg/dL
[2017-01-30] MEDS ORDERED: amLODIPine TAB* 5 MG ONE (11:21)
[2017-01-30] MEDS: amLODIPine TAB* 5 MG PO SCH (11:23)
--- NOTE | 2017-01-30 11:56 | HP ---
CC: VANDANA Velez; Dr. Johnson HISTORY AND PHYSICAL: DATE OF ADMISSION: 01/30/17 TIME OF EVALUATION: 9:30 a.m. PRIMARY CARE PROVIDER: VANDANA Velez. CLINICAL THERAPIST: Dr. Johnson. CHIEF COMPLAINT: Chest pressure. HISTORY OF PRESENT ILLNESS: Mr. Singletary is a 52-year-old male with a past medical history of type 2 diabetes, hyperlipidemia, hypertension, gout, chronic anemia, who was recently admitted to [facility] from January 19 to January 24 when he was diagnosed with end-stage renal disease and started on hemo dialysis. On that admission, the patient was also found to be very anemic with a hemoglobin of 5.5 a nd he responded to transfusion. At that time, he was also found to have a troponin of 0.1 and that w as felt to be secondary to demand ischemia in the setting of significant anemia. The patient was dis charged home and initial plan was for him to continue his workup as outpatient. The patient says he has been compliant with dialysis. The last one was three days ago and he states that he was feeling well. Actually yesterday, he spent a day out trying to solve problems of his dis ability, going back and forth from his physician's office to his work trying to solve problems. He s tates that he had mohawk food for dinner and was feeling well when he went to bed. Around 5 in the morning, he woke up with chest pressure 5/10, described as "a fat man was sitting on my chest." He s tates he was trying to take a deep breath and could not. 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 He denies palpitations, fever, cough, or other complaints. PAST MEDICAL HISTORY: 1. Types 2 diabetes. 2. Hyperlipidemia. 3. Hypertension. 4. Gout. 5. Bilateral lower extremity chronic ulcers. 6. Status post multiple toes amputations (right TMA and left second toe). 7. Chronic anemia. 8. Recent diagnosis of end-stage renal disease, on hemodialysis. MEDICATION LIST: 1. Amlodipine 10 mg p.o. daily. 2. Docusate 200 mg p.o. b.i.d. 3. Sevelamer 600 mg p.o. t.i.d. with meals. ALLERGIES: No known drug allergies. FAMILY HISTORY: Mother in her 70s of liver CA. Father has a history of CAD, hypertension. Sis ter had a history of Guillain[place]. SOCIAL HISTORY: No tobacco. Drinks alcohol occasionally. No recreational drugs. He is a . His recently passed of an HI. Surrogate decision maker is his father, Regis Singletary, phone numb er [phone]. REVIEW OF SYSTEMS: A 14-point review of systems was performed and all the pertinent negative and pos itive findings are in the HPI. PHYSICAL EXAMINATION GENERAL: The patient is an obese male with disheveled appearance, appears older than his stated age, sitting up in the ER stretcher, in no acute distress. VITAL SIGNS: Temperature 99.3, heart rate is 92, respiratory rate 18, oxygen saturation is 93% on 2 L, blood pressure is 170/95. HEENT: Pupils are equal. Moist mucous membranes. CHEST: Breath sounds bilaterally with bibasilar crackles. CVS: Normal S1, S2. Regular rate and rhythm. ABDOMEN: Obese, soft, bowel sounds are present. EXTREMITIES: There is bilateral lower extremity edema, but the patient states that this is better th an when he is started dialysis. NEUROLOGIC: He is alert, awake and oriented x3. He is able to move all 4 extremities. LABORATORY AND IMAGING DATA: The patient had a CBC that showed a WBC of 9.8, hemoglobin of 7.9, hem atocrit of 25, platelets of 215 with 78% neutrophils. Chemistry showed a sodium of 140, potassium 4.3 , chloride of 101, bicarb of 30, BUN of 54, creatinine of 7.89, glucose of 135, lactic acid 1.4, calc ium of 8.0, magnesium 1.6. LFTs were normal except for alk phos of 158. First troponin is 0.09. BN P was 2539. Chest x-ray that showed mild pulmonary interstitial edema and catheter in the right internal jugular vein. EKG done on January 30 at 8:03 a.m. showed sinus rhythm at 79 beats per minute with flat T-waves i n V5 and V6. There is no significant change when compared to his prior EKG from January 21. ASSESSMENT AND PLAN: Mr. Singletary is a 52-year-old male with a past medical history of type 2 diabet es, hyperlipidemia, hypertension, gout, chronic anemia, recent diagnosis of end-stage renal disease, on hemodialysis that presented to the emergency room with complaints of chest pressure. 1. Chest pressure, rule out acute coronary syndrome. The patient has multiple risk factors for renita nary artery disease including his diabetes, hyperlipidemia, and hypertension. On his prior admission , he did have a bump on his troponin and that was felt to be secondary to demand ischemia in the sett ing of significant anemia. The plan at that time was to pursue cardiac workup as an outpatient after he was more stabilized with dialysis, but as the patient is having symptoms at this time, he is monica g to be admitted for further workup. We are going to check serial troponins to rule out acute aponte ry syndrome and he will undergo nuclear stress test. I also believe he has a component of congestive heart failure exacerbation. Despite compliance with dialysis, he appears to be fluid overloaded and this is likely secondary to dietary indiscretion (the patient had mohawk last night). He will be di alyzed as per schedule today and we are going to check an echocardiogram to assess his ejection fract ion. He will be started on an aspirin and we are going to continue his usual dose of amlodipine. 2. Type 2 diabetes. After last admission, the patient has not required medications. We are going t o check his fingersticks a.c. and h.s. and cover with a lispro sliding scale. 3. Hypertension. We will continue amlodipine. 4. DVT prophylaxis. The patient has a score of 3 on the DVT Prophylaxis Risk Assessment Guide and h e will be started on subcutaneous heparin. 5. Code status is full. TIME SPENT: Approximately 60 minutes were spent with the patient interview, medical records review, physical examination to complete this admission; more than half of this time was spent [id number] w ith the patient and coordination of care. [id number]/[facility] #: [id number]
[2017-01-30] MEDS: Insulin LISPRO* 1 UNITS UNIT SUBCUT SCH ×3 (12:17→22:17)
[2017-01-30] MEDS: Sevelamer TAB* 800 MG PO SCH ×2 (12:21→17:30)
[2017-01-30 12:55] LABS: Urine Bacteria Absent (Absent); Urine Bilirubin Negative (Negative); Urine Glucose 2+(150 mg/dL) (Negative); Urine Nitrite Negative (Negative)
[2017-01-30] MEDS ORDERED: Perflutren Lipid Microsphere* 3 ML VIAL ONE (13:39)
--- NOTE | 2017-01-30 14:35 | ECHO ---
Patient: KATY LATHAM Rec#: [id number] : 1965 Date: 01/30/2017 Age: 52y Height: 180.34 cm / 71.0 in Weight: 122.47 kg / 269.9 lbs Sex: M BSA: 2.4 Room#: 441 Admit Date#: 01/30/2017 Type: Inpatient Referring: Lety Vasquez Reading: Sathya Escobar MD Forest Fire Prevention Manager: Rosanna Gutierrez [facility] Transthoracic Echocardiogram Indication: Dyspnea//CHF BP: 170/95 HR: 93 Rhythm: NSR Findings History: DM with neuropathy,HTN,HLD,COPD,gout,ESRD with dialysis,obesity. Technical Comments: The study is technically limited due to patient body habitus. Definity was used to enhance images. The study is technically limited due to the patient's history of COPD. Completed at 1427. Left Ventricle: The left ventricular chamber size is mildly dilated. Mild to moderate concentric left ventricular hypertrophy is observed. Left ventricular systolic function is at the lower limits of normal. The estimated ejection fraction is 50-55%. The assessment of diastolic function is non-diagnostic. Left Atrium: The left atrium is moderately dilated. Right Ventricle: The right ventricular cavity size is normal. The right ventricular global systolic function is normal. Right Atrium: The right atrial cavity size is normal. Aortic Valve: The aortic valve is trileaflet. The aortic valve leaflets are moderately thickened. There is aortic annular calcification. There is no evidence of aortic regurgitation. There is mild aortic stenosis. The mean gradient of the aortic valve is 14.59 mmHg. The aortic valve area, by VTI's, is calculated at 1.6 cm2. Highest aortic valve velocity was acquired with Pedoff in apical position. Mitral Valve: There is mitral annular calcification. The mitral valve leaflets are mildly thickened. There is moderate mitral regurgitation. There is no evidence of mitral stenosis. Tricuspid Valve: The tricuspid valve leaflets are normal. There is mild tricuspid regurgitation. There is evidence of moderate pulmonary hypertension. There is no tricuspid stenosis. Pulmonic Valve: The pulmonic valve appears normal. There is trace to mild pulmonic regurgitation. There is no pulmonic stenosis. Pericardium: A trivial pericardial effusion is visualized. There are no signs of significant hemodynamic compromise. A pericardial fat pad is visualized. Aorta: There is mild dilatation of the ascending aorta. There is no dilatation of the aortic arch. There is no dilation of the aortic root. Pulmonary Artery: The main pulmonary artery appears normal. Venous: The inferior vena cava is dilated. There is an approximate 50% respiratory change in the inferior vena cava dimension. Contrast: Definity was used to optimize study. 4 ml used. Intravenous contrast was used to enhance endocardial border definition. Conclusions Mild to moderate concentric left ventricular hypertrophy is observed. Left ventricular systolic function is at the lower limits of normal. The estimated ejection fraction is 50-55%. There is moderate mitral regurgitation. The left atrium is moderately dilated. There is mild aortic stenosis. There is mild tricuspid regurgitation. There is evidence of moderate pulmonary hypertension. There is trace to mild pulmonic regurgitation. There is mild dilatation of the ascending aorta. No reports of prior studies offered for comparison. Measurements Name Value Normal Range RVIDd (AP) 2D 4 cm (0.9 - 2.6) RVDdMajor (2D) 4 cm (2.2 - 4.4) RAd ISD 4CH 5.1 cm (3.4 - 4.9) RA (A4C)W 4 cm (2.9 - 4.6) IVSd (2D) 1.1 cm (0.6 - 1) LVPWd (2D) 1.3 cm (0.6 - 1) LVIDd (2D) 5.6 cm (3.6 - 5.4) LVIDs (2D) 2.8 cm - LV FS (2D) 50 % (25 - 45) Aortic Annulus 1.9 cm (1.4 - 2.6) Ao root diameter (2D) 3.3 cm (2.1 - 3.5) Ascending Ao 3.6 cm (2.1 - 3.4) Aortic arch 2.8 cm (1.8 - 3.4) Descending Ao 0.7 cm - LA dimension (AP) 2D 5.2 cm (2.3 - 3.8) LAd ISD 4CH 5.7 cm (2.9 - 5.3) LA ISD 4CH W 4.6 cm (2.5 - 4.5) Name Value Normal Range LA ESV SP 4CH (A/L) 76 ml - LA ESV SP 2CH (A/L) 63 ml - LA ESV BP (A/L) 69 ml - LA ESV BP (A/L) index 28.94 ml/m2 - LA ESV SP 4CH (MOD) 64 ml - LA ESV SP 2CH (MOD) 61 ml - Name Value Normal Range MV E-wave Vmax 1.3 m/sec - MV deceleration time 195 msec - MV A-wave Vmax 1.1 m/sec - MV E:A ratio 1.2 ratio - LV septal e' Vmax 0.07 m/sec - LV lateral e' Vmax 0.07 m/sec - LV E:e' septal ratio 18.57 ratio - LV E:e' lateral ratio 18.57 ratio - Name Value Normal Range AV Vmax 2.5 m/sec - AV VTI 50.2 cm - AV peak gradient 24.28 mmHg - AV mean gradient 14.59 mmHg - LVOT diameter 2.2 cm - LVOT Vmax 1 m/sec - LVOT VTI 21.1 cm - LVOT peak gradient 4.05 mmHg - LVOT mean gradient 2.45 mmHg - BETSY (continuity Vmax) 1.5 cm2 - BETSY (continuity VTI) 1.6 cm2 - Name Value Normal Range MR Vmax 5.1 m/sec - MR VTI 143.2 cm - Name Value Normal Range TR Vmax 3.5 m/sec - TR peak gradient 48 mmHg - RAP 8 mmHg - RVSP 56 mmHg - IVC diameter 2.5 cm - Name Value Normal Range PV Vmax 1.3 m/sec - PV peak gradient 6.55 mmHg -
[2017-01-30] MEDS: Heparin VIAL(*) 5000 UNITS/ML VIAL (FIVE THOUSAND) SUBCUT SCH ×2 (14:51→22:29)
[2017-01-30] MEDS ORDERED: Heparin DIALYSIS ONLY(*) 1,000 UNITS/ML VIAL DIALYSIS ONE (16:00)
[2017-01-30] MEDS: Docusate CAP* 100 MG PO SCH (22:28)
[2017-01-31] MEDS: Heparin VIAL(*) 5000 UNITS/ML VIAL (FIVE THOUSAND) SUBCUT SCH ×2 (06:01→13:22)
--- NOTE | 2017-01-31 08:19 | ED ---
Ze Reilly Angela, scribed for Fermín Oscar MD on 01/30/17 at 0735 . HPI Chest Pain - HPI Summary HPI Summary: This pt is a 52 y/o male presenting to [facility] c/o chest pain since 0500 today. Pt reports he was sleeping when he was awoken with chest pain at 0500 today. He notes associated symptoms of SOB and dizziness. Pt rates his pain at onset as 10 out of 10 in severity. Currently, his chest pain is alleviated, rated 0/10, after EMS treatment. En route, EMS administered 324 mg ASA and 2 NTG. He reports he still feels SOB but his chest pain has resolved. Pt states he is going through dialysis now and has a port. He has dialysis on Tuesdays, , and Saturdays. Today is his next one. Pt was admitted to [facility] on 01/19/17 and had 3 transfusions for renal failure. - History of Current Complaint Hx Obtained From: Patient Onset/Duration: Started Hours Ago, Resolved Timing: Constant, Lasting Hours Pain Intensity: 0 Pain Scale Used: 0-10 Numeric Chest Pain Location: Mid Sternal Chest Pain Radiates: No Alleviating Factor(s): NTG 123, EMS Tx - ASA Associated Signs and Symptoms: Positive: Chest Pain, Dizziness, Shortness of Breath - Additional Pertinent History Primary Care Physician: NAHID - Allergy/Home Medications Allergies/Adverse Reactions: Allergies Allergy/AdvReac Type Severity Reaction Status Date / Time No Known Allergies Allergy Verified 01/30/17 07:26 PMH/Surg Hx/FS Hx/Imm Hx Endocrine/Hematology History: Reports: Hx Diabetes - peripheral neuropathy Denies: Hx Anticoagulant Therapy, Hx Thyroid Disease Cardiovascular History: Reports: Hx Hypertension Denies: Hx Congestive Heart Failure, Hx Deep Vein Thrombosis, Hx Myocardial Infarction, Hx Pacemaker/ICD Respiratory History: Reports: Hx Asthma - Bronchospasm/albuterol use. , Hx Seasonal Allergies Denies: Hx Chronic Obstructive Pulmonary Disease (COPD), Hx Lung Cancer GI History: Denies: Hx Gall Bladder Disease, Hx Gastrointestinal Bleed, Hx Ulcer, Hx Urosepsis History: Denies: Hx Kidney Stones, Hx Renal Disease Musculoskeletal History: Reports: Hx Arthritis - HANDS, Hx Gout, Other Musculoskeletal History Sensory History: Reports: Hx Contacts or Glasses - READING GLASSES Denies: Hx Cataracts, Hx Glaucoma, Hx Hearing Aid Opthamlomology History: Reports: Hx Contacts or Glasses - READING GLASSES Denies: Hx Cataracts, Hx Glaucoma Neurological History: Denies: Hx Dementia, Hx Migraine, Hx Seizures, Hx Transient Ischemic Attacks (TIA) Psychiatric History: Denies: Hx Anxiety, Hx Depression, Hx Panic Disorder, Hx Schizophrenia, Hx Bipolar Disorder - Surgical History Surgery Procedure, Year, and Place: left second toe amputation 2009. Left ankle ORIF. RIGHT GREAT TOE AMPUTATION 2012, ALL OTHER TOES AMPUTATED 12/2014. HERNIA A CHILD Hx Anesthesia Reactions: No Infectious Disease History: No Infectious Disease History: Reports: Hx Shingles Denies: Hx Hepatitis, Hx Human Immunodeficiency Virus (HIV), Traveled Outside the [place] in Last 30 Days - Family History Known Family History: Positive: Hypertension - Social History Alcohol Use: Rare Substance Use Type: Reports: None Hx Tobacco Use: No Smoking Status (MU): Never Smoked Tobacco Review of Systems Negative: Fever, Chills Eyes: Negative ENT: Negative Positive: Chest Pain - now resolved Positive: Shortness Of Breath Gastrointestinal: Negative Genitourinary: Negative Musculoskeletal: Negative Neurological: Other - dizziness All Other Systems Reviewed And Are Negative: Yes Physical Exam - Summary Physical Exam Summary: VITAL SIGNS: Reviewed. GENERAL: Patient is an obese male with poor hygiene who is lying comfortable in the stretcher, without chest pain in the ER. Patient is not in any acute respiratory distress. HEAD AND FACE: No signs of trauma. No ecchymosis, hematomas or skull depressions. No sinus tenderness. EYES: PERRLA, EOMI x 2, No injected conjunctiva, no nystagmus. EARS: Hearing grossly intact. Ear canals and tympanic membranes are within normal limits. MOUTH: Oropharynx within normal limits. NECK: Supple, trachea is midline, no adenopathy, no JVD, no carotid bruit, no c- spine tenderness, neck with full ROM. CHEST: Symmetric, no tenderness at palpation LUNGS: Clear to auscultation bilaterally. No wheezing or crackles. CVS: Regular rate and rhythm, S1 and S2 present, no murmurs or gallops appreciated. ABDOMEN: Soft, non-tender. No signs of distention. No rebound no guarding, and no masses palpated. Bowel sounds are normal. EXTREMITIES: No cyanosis or clubbing. Pt has a left fourth and fifth toe cellulitis. Right toes are amputated. NEURO: Alert and oriented x 3. No acute neurological deficits. Speech is normal and follows commands. SKIN: Dry and warm Triage Information Reviewed: Yes Vital Signs On Initial Exam: Initial Vitals Temp Pulse Resp BP Pulse Ox 99.3 F 102 18 190/97 93 01/30/17 07:23 01/30/17 07:23 01/30/17 07:23 01/30/17 07:23 01/30/17 07:23 Vital Signs Reviewed: Yes Diagnostics - Vital Signs Vital Signs Temp Pulse Resp BP Pulse Ox 01/30/17 07:27 102 93 01/30/17 07:23 99.3 F 102 18 190/97 93 - Laboratory Lab Results: Lab Results 01/30/17 01/30/17 01/30/17 Range/Units 07:43 07:43 07:43 WBC 9.8 (3.5-10.8) 10^3/ul RBC 2.46 L (4.0-5.4) 10^6/ul Hgb 7.9 L (14.0-18.0) g/dl Hct 25 L (42-52) % MCV 100 H (80-94) fL MCH 32 H (27-31) pg MCHC 32 (31-36) g/dl RDW 17 H (10.5-15) % Plt Count 215 (150-450) 10^3/ul MPV 9 (7.4-10.4) um3 Neut % (Auto) 78.5 (38-83) % Lymph % (Auto) 7.5 L (25-47) % [place] % (Auto) 10.3 H (1-9) % Eos % (Auto) 3.0 (0-6) % Baso % (Auto) 0.7 (0-2) % Absolute Neuts (auto) 7.7 (1.5-7.7) 10^3/ul Absolute Lymphs (auto) 0.7 L (1.0-4.8) 10^3/ul Absolute Monos (auto) 1.0 H (0-0.8) 10^3/ul Absolute Eos (auto) 0.3 (0-0.6) 10^3/ul Absolute Basos (auto) 0.1 (0-0.2) 10^3/ul Absolute Nucleated RBC 0.01 10^3/ul Nucleated RBC % 0.1 Sodium 140 (133-145) mmol/L Potassium 4.3 (3.5-5.0) mmol/L Chloride 101 (101-111) mmol/L Carbon Dioxide 30 (22-32) mmol/L Anion Gap 9 (2-11) mmol/L BUN 54 H (6-24) mg/dL Creatinine 7.89 H (0.67-1.17) mg/dL Est GFR ( Amer) 9.3 (>60) Est GFR (Non-Af Amer) 7.2 (>60) BUN/Creatinine Ratio 6.8 L (8-20) Glucose 135 H (70-100) mg/dL Lactic Acid (0.5-2.0) mmol/L Calcium 8.0 L (8.6-10.3) mg/dL Magnesium 1.6 L (1.9-2.7) mg/dL Total Bilirubin 0.40 (0.2-1.0) mg/dL AST 28 (13-39) U/L ALT 13 (7-52) U/L Alkaline Phosphatase 158 H (34-104) U/L CK-MB (CK-2) 2.8 (0.6-6.3) ng/mL Troponin I 0.09 H* (<0.04) ng/mL B-Natriuretic Peptide 2539 H ( - 100) pg/mL Total Protein 5.9 L (6.4-8.9) g/dL Albumin 3.0 L (3.2-5.2) g/dL Globulin 2.9 (2-4) g/dL Albumin/Globulin Ratio 1.0 (1-3) Triglycerides 74 mg/dL Cholesterol 156 mg/dL LDL Cholesterol 104 mg/dL HDL Cholesterol 37.1 mg/dL TSH 5.42 (0.34-5.60) mcIU/mL 01/30/17 Range/Units 07:43 WBC (3.5-10.8) 10^3/ul RBC (4.0-5.4) 10^6/ul Hgb (14.0-18.0) g/dl Hct (42-52) % MCV (80-94) fL MCH (27-31) pg MCHC (31-36) g/dl RDW (10.5-15) % Plt Count (150-450) 10^3/ul MPV (7.4-10.4) um3 Neut % (Auto) (38-83) % Lymph % (Auto) (25-47) % [place] % (Auto) (1-9) % Eos % (Auto) (0-6) % Baso % (Auto) (0-2) % Absolute Neuts (auto) (1.5-7.7) 10^3/ul Absolute Lymphs (auto) (1.0-4.8) 10^3/ul Absolute Monos (auto) (0-0.8) 10^3/ul Absolute Eos (auto) (0-0.6) 10^3/ul Absolute Basos (auto) (0-0.2) 10^3/ul Absolute Nucleated RBC 10^3/ul Nucleated RBC % Sodium (133-145) mmol/L Potassium (3.5-5.0) mmol/L Chloride (101-111) mmol/L Carbon Dioxide (22-32) mmol/L Anion Gap (2-11) mmol/L BUN (6-24) mg/dL Creatinine (0.67-1.17) mg/dL Est GFR ( Amer) (>60) Est GFR (Non-Af Amer) (>60) BUN/Creatinine Ratio (8-20) Glucose (70-100) mg/dL Lactic Acid 1.4 (0.5-2.0) mmol/L Calcium (8.6-10.3) mg/dL Magnesium (1.9-2.7) mg/dL Total Bilirubin (0.2-1.0) mg/dL AST (13-39) U/L ALT (7-52) U/L Alkaline Phosphatase (34-104) U/L CK-MB (CK-2) (0.6-6.3) ng/mL Troponin I (<0.04) ng/mL B-Natriuretic Peptide ( - 100) pg/mL Total Protein (6.4-8.9) g/dL Albumin (3.2-5.2) g/dL Globulin (2-4) g/dL Albumin/Globulin Ratio (1-3) Triglycerides mg/dL Cholesterol mg/dL LDL Cholesterol mg/dL HDL Cholesterol mg/dL TSH (0.34-5.60) mcIU/mL Result Diagrams: 01/30/17 07:43 01/30/17 07:43 Lab Statement: Any lab studies that have been ordered have been reviewed, and results considered in the medical decision making process. - Radiology Chest XR Xray Interpretation: Positive (See Comments) - IMPRESSION: 1. Lines and tubes as above. 2. Hyperinflation. 3. Mild pulmonary interstitial edema. ED physician has reviewed this radiology report and agrees. Radiology Interpretation Completed By: Radiologist - EKG 0803 Cardiac Rate: NL EKG Rhythm: Sinus Rhythm - at 79 bpm EKG Interpretation: No ST elevations. Normal axis. Chest Pain Course/Dx - Course Assessment/Plan: This pt is a 52 y/o male presenting to [facility] c/o chest pain since 0500 today. Pt reports he was sleeping when he was awoken with chest pain at 0500 today. He notes associated symptoms of SOB and dizziness. Pt rates his pain at onset as 10 out of 10 in severity. Currently, his chest pain is alleviated, rated 0/10, after EMS treatment. En route, EMS administered 324 mg ASA and 2 NTG. He reports he still feels SOB but his chest pain has resolved. Pt states he is going through dialysis now and has a port. He has dialysis on Tuesdays, , and Saturdays. Today is his next one. Pt was admitted to [facility] on 01/19/17 and had 3 transfusions for renal failure. Test results shows chronic anemia, possibly secondary to end stage renal disease, chronic renal failure, BNP of 2539, troponin of 0.09. Chest XR shows 1. Lines and tubes as above. 2. Hyperinflation. 3. Mild pulmonary interstitial edema. The pt was given aspirin and nitroglycerin in the ambulance and the chest pain has subsided. Since the pt has significant comorbidities, I discussed the test results and findings with Dr. Monaco, who accepted the pt for admission. Pt is hemodynamically stable, alert and oriented x3. - Chest Pain Differential Diagnosis/HQI/PQRI: Acute OK, ACS, Angina, CHF, Chest Wall, GI Disease, Lower Respiratory Infection, Pulmonary Edema - Diagnoses Provider Diagnoses: Chest pain, rule out acute coronary syndrome - Provider Notifications Discussed Care Of Patient With: Taryn Monaco Time Discussed With Above Provider: 09:15 Instructed by Provider To: Other - I discussed pt care with Dr. Monaco, who has accepted the pt for admission. Discharge - Discharge Plan Condition: Stable Disposition: ADMITTED TO [facility] The documentation as recorded by the Ze peoples Angela accurately reflects the service I personally performed and the decisions made by , Fermín Oscar MD.
[2017-01-31] MEDS: Insulin LISPRO* 1 UNITS UNIT SUBCUT SCH ×2 (08:20→11:23)
[2017-01-31] MEDS: Docusate CAP* 100 MG PO SCH (08:22)
[2017-01-31] MEDS: amLODIPine TAB* 5 MG PO SCH (08:23)
[2017-01-31] MEDS: Sevelamer TAB* 800 MG PO SCH ×2 (08:23→11:33)
[2017-01-31] MEDS ORDERED: amLODIPine TAB* 5 MG PO SCH (09:00)
[2017-01-31] MEDS ORDERED: Aspirin EC Low Dose* 81 MG TAB.EC PO SCH (09:00)
[2017-01-31] MEDS ORDERED: Regadenoson* 0.4 MG/5 ML SYRINGE ONE (09:44)
--- NOTE | 2017-01-31 11:32 | RAD ---
Edited for charges. Indication: Chest pain. Myocardial perfusion scan was performed utilizing 1 day protocol. Rest myocardial perfusion was performed after intravenous injection of 10.9 mCi of technetium 99m tetrofosmin. Pharmacological stress was applied and 25.9 mCi of technetium 99 and tetrofosmin was injected for the stress portion of the study. There is ventriculomegaly noted. There is photopenia in the inferior wall which appears to correct on the attenuated corrected images and this likely represents artifact. There is apical thinning and apical defect which appears to be worse on the rest images demonstrates images. 8 apical fixed defect should BE considered. The CT demonstrates bilateral pleural effusions. The ejection fraction at stress is 37%. Evaluation of wall motion demonstrates global hypokinesis with apical paradoxical motion. IMPRESSION: Ventriculomegaly with small to moderate-sized apical fixed defect. Decreased ejection fraction of 37% with global hypokinesis and suggestion of apical paradoxical motion. ASSESSMENT: Intermediate risk Based on imaging criteria from ACC/AHA 2002 Guideline Update for the Management of Patients With Chronic Stable Angina Table 23. Noninvasive Risk Stratification. MTDD
[2017-01-31 13:02] VITALS: BP 134/75
[2017-01-31] MEDS ORDERED: Heparin DIALYSIS ONLY(*) 1,000 UNITS/ML VIAL DIALYSIS ONE (17:00)
--- NOTE | 2017-02-01 03:07 | DS ---
ADDENDUM DISCHARGE SUMMARY: ATTENDING PROVIDER: Celso Guo MD * (DICTATED BYMATTI CHENEY NP) This patient presented in the ER with a description of chest heaviness and pressure and was admitted to rule out ACS vs fluid overload. Patient is new to dialysis and has been compliant with his regimen. He has not been strict with his diet however, which may have contributed to his current condition. DIAGNOSTIC STUDIES/LABORATORY DATA: Nuclear cardiac stress tests shows ventriculomegaly of [id number] size apical defect with decreased ejection fraction of 37% with global hypokinesis suggestive of apical paradoxical motion. Transthoracic echocardiogram was also performed at this time. Results of that test shows [id number] concentric left ventricular hypertrophy, left ventricular systolic function at the lower limits of normal. Moderate mitral regurgitation, left atrium moderately dilated. Mild aortic stenosis, mild tricuspid regurgitation, evidence of moderate pulmonary hypertension, trace mild pulmonic regurgitation, and mild dilatation of the ascending aorta with no report of prior studies offered for comparison. Chest x -ray was also completed. Chest x-ray shows hyperinflation and mild pulmonary interstitial edema. Laboratories at the time of discharge showed WBC of 9.8, RBC of 2.46, hemoglobin of 7.9, hematocrit 25, platelets 215. Glucose 112. In particular the troponins were negative at 0.08 and 0.08. The patient's chest pain resolved on its own after his first course of dialysis ; 3 L was removed on 01/30/17. Upon evaluation of the patient today on 01/31/17 , the patient stated he just felt moderately fluid bound. The patient was sent for an additional dialysis today and was stable throughout the night. Vital signs were stable. He reported no further chest pain. It was determined at that time the patient was stable enough to go home and follow up as outpatient with his primary care provider and decide on outpatient cardiology further workup. Again the troponins were negative, his echo and nuclear stress are as above. He will likely need further cardiac management as an outpatient. Patient will be discharged to home after dialysis is complete. Patient will follow up with Dr. Johnson, his violent crimes detective and also his primary care provider VANDANA Velez. MEDICATIONS AT THE TIME OF DISCHARGE: Include: 1. Amlodipine 5 mg 2 tablets daily. 2. Sevelamer tablet 1600 mg 1 tablet 3 times a day with meals. 3. Low dose aspirin 81 mg 1 tablet daily. 4. Colace 100 mg capsule 200 mg b.i.d. The patient was discharged in stable condition. All questions were answered. The patient verbalized his understanding of his followup. It was explained to the patient that he may return to the ER with any further problems, issues with chest pain or any further decompensation. MATTI CHENEY NP [id number]/[facility] #: [id number] [facility] HOSPITALBryanna
== END 2017-01-31 19:40 | disposition home or self-care (01) ==
LOC: ED 07:21 → MEDTELE 09:20
PROVIDERS: ADMIT Internal Medicine; ATTEND Internal Medicine
DX: R07.9 Chest pain, unspecified (principal); E78.5 Hyperlipidemia, unspecified; D64.9 Anemia, unspecified; M10.9 Gout, unspecified; I51.7 Cardiomegaly; I12.0 Hypertensive chronic kidney disease with stage 5 chronic kidney disease or end stage renal disease; E11.22 Type 2 diabetes mellitus with diabetic chronic kidney disease; N18.6 End stage renal disease; Z99.2 Dependence on renal dialysis; E11.42 Type 2 diabetes mellitus with diabetic polyneuropathy; Z79.899 Other long term (current) drug therapy; R94.31 Abnormal electrocardiogram [ECG] [EKG]; R06.02 Shortness of breath
CPT/HCPCS: 36415; 71020; 78452; 80053; 80061; 81003; 81015; 82553; 83605; 83735; 83880; 84443; 84484; 85025; 90935; 93005; 93017; 93306; 96372; 99284; A9270-GY; A9502; G0378; J1644; J2785

== ENCOUNTER 2017-02-06 14:17 | Emergency (ER) | payer BC ==
[2017-02-06] MEDS ORDERED: cefTRIAXone VIAL(*) 1,000 MG in NS 0.9% 50 ML* 50 ML IVPB ONE (18:25)
[2017-02-06] MEDS ORDERED: cefTRIAXone(*) 1 GM ADVAN/BAG ONE (19:12)
[2017-02-06 19:19] LABS: Hematocrit 24 % (42-52); Mean Corpuscular HGB Conc 33 g/dl (31-36); Mean Corpuscular Hemoglobin 32 pg (27-31); Mean Corpuscular Volume 99 fL (80-94); Mean Platelet Volume 9 um3 (7.4-10.4); Red Blood Count 2.48 10^6/ul (4.0-5.4); Red Cell Distribution Width 15 % (10.5-15); White Blood Count 8.1 10^3/ul (3.5-10.8)
[2017-02-06 19:35] LABS: Albumin 3.3 g/dL (3.2-5.2); BUN/Creatinine Ratio 5.2 (8-20); Calcium 8.2 mg/dL (8.6-10.3); EGFR African American 17.9 (>60); EGFR Non-African American 13.9 (>60); Potassium 4.3 mmol/L (3.5-5.0); Total Bilirubin 0.5 mg/dL (0.2-1.0); Total Protein 6.3 g/dL (6.4-8.9)
[2017-02-06] MEDS ORDERED: Sulfamethox/Trimethoprim DS 800/160* TAB PO ONE (21:15)
--- NOTE | 2017-02-06 21:16 | ED ---
Skin Complaint - HPI Summary HPI Summary: 52M presents with potential left foot infection. He is a diabetic who is not on medication. He goes to dialysis three times a week. He has had an open wound of his foot for two months. Today he started to have a throbbing pain in his left foot. He noticed some redness to the area that has spread. He denies any injury. He denies any fever. He feels fatigued but says that is from the dialysis. He has full ROM of his foot. He had previous surgery on ankle for fracture. He has some neuropathy. - History of Current Complaint Chief Complaint: EDDiabeticProb Time Seen by Provider: 02/06/17 18:07 Stated Complaint: LEFT FOOT WOUND Pain Intensity: 4 - Additional Pertinent History Primary Care Physician: [place] - Allergy/Home Medications Allergies/Adverse Reactions: Allergies Allergy/AdvReac Type Severity Reaction Status Date / Time No Known Allergies Allergy Verified 01/30/17 07:26 PMH/Surg Hx/FS Hx/Imm Hx Endocrine/Hematology History: Reports: Hx Diabetes - peripheral neuropathy Denies: Hx Anticoagulant Therapy, Hx Thyroid Disease Cardiovascular History: Reports: Hx Angina - "tightness", "like congestion", Hx Hypercholesterolemia, Hx Hypertension Denies: Hx Congestive Heart Failure, Hx Coronary Artery Disease, Hx Deep Vein Thrombosis, Hx Myocardial Infarction, Hx Pacemaker/ICD, Hx Valvular Heart Disease Respiratory History: Reports: Hx Asthma - Bronchospasm/albuterol use., Hx Seasonal Allergies Denies: Hx Chronic Obstructive Pulmonary Disease (COPD), Hx Lung Cancer GI History: Denies: Hx Gall Bladder Disease, Hx Gastrointestinal Bleed, Hx Ulcer, Hx Urosepsis History: Denies: Hx Kidney Stones, Hx Renal Disease Musculoskeletal History: Reports: Hx Arthritis - HANDS, Hx Gout, Other Musculoskeletal History Sensory History: Reports: Hx Contacts or Glasses - READING GLASSES Denies: Hx Cataracts, Hx Glaucoma, Hx Hearing Aid Opthamlomology History: Reports: Hx Contacts or Glasses - READING GLASSES Denies: Hx Cataracts, Hx Glaucoma Neurological History: Denies: Hx Dementia, Hx Migraine, Hx Seizures, Hx Transient Ischemic Attacks (TIA) Psychiatric History: Denies: Hx Anxiety, Hx Depression, Hx Panic Disorder, Hx Schizophrenia, Hx Bipolar Disorder - Surgical History Surgery Procedure, Year, and Place: left second toe amputation 2009. Left ankle ORIF. RIGHT GREAT TOE AMPUTATION 2012, ALL OTHER TOES AMPUTATED 12/2014. HERNIA A CHILD Hx Anesthesia Reactions: No - Immunization History Immunizations Up to Date: Yes Infectious Disease History: No Infectious Disease History: Reports: Hx Shingles Denies: Hx Hepatitis, Hx Human Immunodeficiency Virus (HIV), Traveled Outside the [place] in Last 30 Days - Family History Known Family History: Positive: None, Hypertension - Social History Alcohol Use: Rare Substance Use Type: Reports: None Hx Tobacco Use: No Smoking Status (MU): Never Smoked Tobacco Review of Systems Negative: Fever Negative: Chest Pain Negative: Shortness Of Breath Positive: Edema - left foot Positive: Rash All Other Systems Reviewed And Are Negative: Yes Physical Exam Triage Information Reviewed: Yes Vital Signs On Initial Exam: Initial Vitals Temp Pulse Resp BP Pulse Ox 98.5 F 87 16 158/86 95 02/06/17 14:26 02/06/17 14:26 02/06/17 14:26 02/06/17 14:26 02/06/17 14:26 Vital Signs Reviewed: Yes Appearance: Positive: Well-Appearing Skin: Positive: Warm, Dry, Other - erythema to distal left foot and edema Head/Face: Positive: Normal Head/Face Inspection Eyes: Positive: Normal, Conjunctiva Clear Respiratory/Lung Sounds: Positive: Clear to Auscultation, Breath Sounds Present Cardiovascular: Positive: Normal, RRR Musculoskeletal: Positive: Strength/ROM Intact - left foot, Other - good pulses Neurological: Positive: Normal Psychiatric: Positive: Normal - Jarvis Coma Scale Coma Scale Total: 15 Diagnostics - Vital Signs Vital Signs Temp Pulse Resp BP Pulse Ox 02/06/17 19:20 98.6 F 85 16 176/99 93 02/06/17 14:26 98.5 F 87 16 158/86 95 - Laboratory Lab Results: Lab Results 02/06/17 02/06/17 Range/Units 19:00 19:00 WBC 8.1 (3.5-10.8) 10^3/ul RBC 2.48 L (4.0-5.4) 10^6/ul Hgb 8.0 L (14.0-18.0) g/dl Hct 24 L (42-52) % MCV 99 H (80-94) fL MCH 32 H (27-31) pg MCHC 33 (31-36) g/dl RDW 15 (10.5-15) % Plt Count 298 (150-450) 10^3/ul MPV 9 (7.4-10.4) um3 Neut % (Auto) 76.5 (38-83) % Lymph % (Auto) 11.1 L (25-47) % Desha % (Auto) 9.9 H (1-9) % Eos % (Auto) 1.5 (0-6) % Baso % (Auto) 1.0 (0-2) % Absolute Neuts (auto) 6.2 (1.5-7.7) 10^3/ul Absolute Lymphs (auto) 0.9 L (1.0-4.8) 10^3/ul Absolute Monos (auto) 0.8 (0-0.8) 10^3/ul Absolute Eos (auto) 0.1 (0-0.6) 10^3/ul Absolute Basos (auto) 0.1 (0-0.2) 10^3/ul Absolute Nucleated RBC 0 10^3/ul Nucleated RBC % 0 Sodium 137 (133-145) mmol/L Potassium 4.3 (3.5-5.0) mmol/L Chloride 97 L (101-111) mmol/L Carbon Dioxide 32 (22-32) mmol/L Anion Gap 8 (2-11) mmol/L BUN 23 (6-24) mg/dL Creatinine 4.46 H (0.67-1.17) mg/dL Est GFR ( Amer) 17.9 (>60) Est GFR (Non-Af Amer) 13.9 (>60) BUN/Creatinine Ratio 5.2 L (8-20) Glucose 110 H (70-100) mg/dL Calcium 8.2 L (8.6-10.3) mg/dL Total Bilirubin 0.50 (0.2-1.0) mg/dL AST 24 (13-39) U/L ALT 26 (7-52) U/L Alkaline Phosphatase 176 H (34-104) U/L Total Protein 6.3 L (6.4-8.9) g/dL Albumin 3.3 (3.2-5.2) g/dL Globulin 3.0 (2-4) g/dL Albumin/Globulin Ratio 1.1 (1-3) Lipase 28 (11.0-82.0) U/L Result Diagrams: 11/28/17 19:00 02/06/17 19:00 Lab Statement: Any lab studies that have been ordered have been reviewed, and results considered in the medical decision making process. Course/Dx - Course Course Of Treatment: 52M presents with potential left foot infection. He is a diabetic who is not on medication. He goes to dialysis three times a week. He has had an open wound of his foot for two months. Today he started to have a throbbing pain in his left foot. He noticed some redness to the area that has spread. He denies any injury. He denies any fever. He feels fatigued but says that is from the dialysis. He has full ROM of his foot. He had previous surgery on ankle for fracture. He has some neuropathy. on exam has swelling and erythema to distal left foot. afebrile. normal labs. gave dose of kefzol and will discharge on keflex and bactrim. told to follow up with primary in 4 days. patient understand and agrees with plan. - Differential Diagnoses - Skin Complaint Differential Diagnoses: Abscess, Cellulitis, Contact Dermatitis - Diagnoses Provider Diagnoses: Cellulitis of left foot Discharge - Discharge Plan Condition: Good Disposition: HOME Prescriptions: Cephalexin CAP* [Keflex CAP*] 500 mg PO BID #19 cap Sulfamethox/Trimethoprim DS* [Bactrim DS 800/160 TAB*] 1 tab PO BID #19 tab Patient Education Materials: Cellulitis (ED) Referrals: Lety Vasquez [Primary Care Provider] - Additional Instructions: Take Keflex twice times a day for 10 days, first dose given in ED Take Bactrim twice a day for 10 days, first dose given in ED Place ice on area, elevate Follow up with primary within5 days Return to ED if develop fever, area of redness spreads, or any new or worsening symptoms
[2017-02-06 21:51] VITALS: BP 170/98
== END 2017-02-06 21:59 | disposition home or self-care (01) ==
LOC: ED 14:17
DX: L03.116 Cellulitis of left lower limb (principal); R53.83 Other fatigue; E11.42 Type 2 diabetes mellitus with diabetic polyneuropathy; I20.9 Angina pectoris, unspecified; I10 Essential (primary) hypertension; E78.00 Pure hypercholesterolemia, unspecified; J45.909 Unspecified asthma, uncomplicated; Z89.422 Acquired absence of other left toe(s); Z89.421 Acquired absence of other right toe(s)
CPT/HCPCS: 36415; 80053; 83690; 85025; 96365; 96366; 99282; A9270-GY; J0696

== ENCOUNTER 2017-02-17 14:00 | Emergency (ER) | payer BC ==
[2017-02-17 14:29] VITALS: BP 136/68
--- NOTE | 2017-02-17 15:34 | UC ---
HPI Wound/Suture Re-check - HPI Summary HPI Summary: patient states he completed course of antibiotics cephalexin and bactrin for 5th toe infection on left foot and that the infection had resolved. States that this morning after dyalisis he noticed the same toe was black and swollen. He does not have sensation on feet and states he jams his toes all the time but does not recall doing so this morning. Denies fever, cannot feel pain as he cannot feel his toes. - History Of Current Complaint Chief Complaint: UCWounds Stated Complaint: WOUND ON FOOT Time Seen by Provider: 02/17/17 15:08 - Allergies/Home Medications Allergies/Adverse Reactions: Allergies Allergy/AdvReac Type Severity Reaction Status Date / Time No Known Allergies Allergy Verified 02/17/17 14:25 PMH/Surg Hx/FS Hx/Imm Hx - Additional Past Medical History Additional PMH: ESRD on dyalisis Endocrine History: Diabetes Cardiovascular History: Hypertension Other History Of: Negative For: HIV, Hepatitis B, Hepatitis C, Anticoagulant Therapy - Surgical History Surgical History: Yes Surgery Procedure, Year, and Place: left second toe amputation 2009. Left ankle ORIF. RIGHT GREAT TOE AMPUTATION 2012, ALL OTHER TOES AMPUTATED 12/2014. HERNIA A CHILD - Family History Known Family History: Positive: None, Hypertension - Social History Alcohol Use: Rare Substance Use Type: None Smoking Status (MU): Never Smoked Tobacco - Immunization History Most Recent Influenza Vaccination: 2005 Most Recent Tetanus Shot: 2012 Most Recent Pneumonia Vaccination: never Review of Systems Constitutional: Negative Musculoskeletal: Other: - swelling and discoloration toe All Other Systems Reviewed And Are Negative: Yes Physical Exam Triage Information Reviewed: Yes Vital Signs: Initial Vital Signs Temp 98.9 F 02/17/17 14:25 Pulse 92 02/17/17 14:25 Resp 16 02/17/17 14:25 BP 136/68 02/17/17 14:25 Pulse Ox 98 02/17/17 14:25 Vital Signs Reviewed: Yes Musculoskeletal: Positive: Other: - Black discoloration of 5th left toe with erythema/edema and exfoliation stratum corneum. Mild pedal edema, pulses are weak. Hypersthesia foot. No plantar ulcers Course/Dx - Course Course Of Treatment: Patient referred to ER - Differential Dx - Laceration/Wound Provider Diagnoses: Gangrene 5th left toe Discharge - Discharge Plan Condition: Stable Disposition: ADMITTED TO [facility] Referrals: Rosalio JARVIS,Lety Hyde [Primary Care Provider] -
== END 2017-02-17 15:53 | disposition short-term general hospital (02) ==
LOC: UCEAST 14:00
DX: E11.52 Type 2 diabetes mellitus with diabetic peripheral angiopathy with gangrene (principal); E11.22 Type 2 diabetes mellitus with diabetic chronic kidney disease; I12.0 Hypertensive chronic kidney disease with stage 5 chronic kidney disease or end stage renal disease; N18.6 End stage renal disease; Z99.2 Dependence on renal dialysis; Z89.422 Acquired absence of other left toe(s); Z89.411 Acquired absence of right great toe; Z89.421 Acquired absence of other right toe(s)
CPT/HCPCS: 99212; G0463

== ENCOUNTER 2017-02-17 17:00 | Inpatient (IN) | payer BC ==
[2017-02-17] MEDS ORDERED: Piperacillin/Tazobac ADVAN(*) 3.375 GM in NS 0.9% 100 ML* 100 ML IVPB ONE (17:45)
[2017-02-17 18:15] LABS: Hematocrit 24 % (42-52); Hemoglobin 7.9 g/dl (14.0-18.0); Mean Corpuscular HGB Conc 33 g/dl (31-36); Mean Corpuscular Hemoglobin 32 pg (27-31); Mean Corpuscular Volume 98 fL (80-94); Mean Platelet Volume 8 um3 (7.4-10.4); Red Blood Count 2.45 10^6/ul (4.0-5.4); Red Cell Distribution Width 15 % (10.5-15); White Blood Count 11.8 10^3/ul (3.5-10.8)
[2017-02-17 18:28] LABS: Albumin 3.3 g/dL (3.2-5.2); C Reactive Protein 12.71 mg/L (< 5.00); Calcium 8.8 mg/dL (8.6-10.3); EGFR African American 17.2 (>60); EGFR Non-African American 13.4 (>60); Globulin 3.3 g/dL (2-4); Potassium 4.9 mmol/L (3.5-5.0); Total Bilirubin 0.4 mg/dL (0.2-1.0); Total Protein 6.6 g/dL (6.4-8.9); Uric Acid 3.1 mg/dL (4.4-7.6)
[2017-02-17 18:53] LABS: Erythrocyte Sed Rate 120 mm/Hr (0-20)
--- NOTE | 2017-02-17 19:40 | RAD ---
Indication: LEFT fifth toe black/discolored. Infection. First toe gout. Comparison: May 31, 2009 Technique: AP, lateral, and oblique views LEFT foot. Report: Diffuse peripheral vascular calcifications and nonfocal soft tissue swelling. No subcutaneous emphysema evident. Internal fixation screw at the medial malleolus. Chronic appearing fracture through the diaphysis of the first distal phalanx with probable partial osseous bridging. Post amputation of the second toe at the level of the proximal metaphysis of the proximal phalanx. No acute fracture evident. Polyarticular degenerative arthropathy. IMPRESSION: No osteolysis, or osteosclerosis, or periosteal reaction at the fifth toe to indicate osteomyelitis. If there is persistent clinical concern consider MRI or in setting of contraindication to MRI 3 phase bone scan for further assessment.
[2017-02-17 20:26] LABS: Urine Bacteria Absent (Absent); Urine Bilirubin Negative (Negative); Urine Glucose 1+(50 mg/dL) (Negative); Urine Nitrite Negative (Negative)
[2017-02-17] MEDS ORDERED: Dextrose 50% Syringe 50 ML* 25 GM/50 ML SYRINGE IV PUSH PRN (21:10)
[2017-02-17] MEDS ORDERED: Ondansetron INJ* 2 MG/ML VIAL IV PRN (21:10)
--- NOTE | 2017-02-17 21:41 | RAD ---
Indication: Hypoxia. History of asthma. Diabetic. End-stage renal disease. Comparison: January 30, 2017 Technique: Upright AP 2110 hours Report: Distal tip of tunneled RIGHT IJ central venous catheter at level of the superior vena cava directed central. Mild prominence of interstitial markings. Probable small LEFT pleural effusion. Negative for cardiomegaly. Prominent mildly ill-defined central pulmonary vasculature. IMPRESSION: Mild pulmonary vascular congestion and interstitial edema.
[2017-02-17] MEDS ORDERED: Cefepime(*) 1 GM in NS 0.9% 50 ML* 50 ML IVPB SCH (22:00)
[2017-02-17] MEDS ORDERED: Vancomycin(*) 1,750 MG in NS 0.9% 500 ML* 500 ML IVPB ONE (22:30)
[2017-02-17] MEDS ORDERED: Vancomycin per Pharmacy* NOTE FOLLOW UP PRN (22:41)
--- NOTE | 2017-02-17 23:38 | HP ---
CC: VANDANA Velez; Dr. Johnson; Dr. Louis * HISTORY AND PHYSICAL: DATE OF ADMISSION: 02/17/17 PRIMARY CARE PROVIDER: VANDANA Velez CONSULTING SAFETY PATROL OFFICER: Dr. Johnson. CONSULTING ORTHOPEDIST: Dr. Louis. ATTENDING PHYSICIAN WHILE IN THE HOSPITAL: Nitin Licea MD * (report dictated by Blaine Avila NP). CHIEF COMPLAINT: Left fifth toe black and diabetic wound. HISTORY OF PRESENT ILLNESS: Mr. Singletary is a 52-year-old male patient who is diabetic, hypertensive, hyper-lipidemic, has a history of gout. He has had bilateral lower extremity ulcers. He has a history of anemia secondary to end- stage renal disease and he also has end-stage renal disease, comes into our ER today, states that since beginning of January, he had ulcer formation in his foot on the left side between the 4th and 5th toe. He recently noted that it was becoming red and discolored and he was having redness going up his foot. He went to the ER about 10 days ago, was evaluated and started on antibiotics. Unfortunately, he has finished antibiotics couple of days ago and now he has noted that the toe was discolored particularly on the left side it was black. He had discoloration to the fourth toe as well. He did have some redness again just above the toes on the left side in his midfoot area. He was concerned when he looked at his foot today. He says that this is like they are burning, but denies having any pain. He denies having any fevers or chills. Denies any vomiting. He has no chest pain. He was recently admitted here for chest pain. On the 31 of January had a stress test that was intermediate risk, but no reversible ischemia was noted and he was discharged. He denied having any more chest pain, denied having any cough, fevers, chills, no shortness of breath; says he has been feeling well. He was concerned because of this discoloration and he decided to come into the ER today to be evaluated. He was evaluated here. There was concern for the underlying osteomyelitis, possible need for amputation and we were asked to evaluate for admission. PAST MEDICAL HISTORY: Significant for: 1. Diabetes. 2. Hyperlipidemia. 3. Hypertension. 4. Gout. 5. Bilateral lower extremity ulcers. 6. Anemia. 7. End-stage renal disease. PAST SURGICAL HISTORY: 1. The patient has had a right transmetatarsal amputation. 2. He has had a left second toe amputation. 3. He has had ORIF of left lower extremity. MEDICATIONS: Home meds according to the last discharge summary from 10 days ago include: 1. Amlodipine 5 mg p.o. daily. 2. Colace 200 mg p.o. b.i.d. 3. Aspirin 81 mg daily. 4. Sevelamer 1600 mg t.i.d. with meals. ALLERGIES TO MEDICATIONS: Include no known drug allergies. FAMILY HISTORY: His mother had a history of liver cancer, father had a history of CAD and hypertension. SOCIAL HISTORY: He does not smoke, occasionally drinks alcohol. Surrogate decision maker is his father. REVIEW OF SYSTEMS: There is no documented fever. He denied having any significant weight change. There was no double vision. There is no ear discharge. Denied having any rhinorrhea. No sore throat. No thyroid enlargement. Denied having any chest pain. No orthopnea. No nocturnal dyspnea. There was no abdominal pain, no nausea, no vomiting, no dysuria, no frequency. There was no seizure, no loss of consciousness, no pruritus, and no skin ulcerations. Review of 14 systems completed, all others negative. PHYSICAL EXAMINATION GENERAL: At this time, Mr. Singletary is a 52-year-old male patient. He is chronically ill appearing. He is sitting on the ED stretcher. He does not appear to be in any acute distress. VITAL SIGNS: Blood pressure 151/93, pulse 95, respirations 20, O2 sat 91% on room air, and temperature 99.8. HEENT: Head: Atraumatic, normocephalic. Eyes: EOMs are intact. Sclerae are anicteric and not pale. Throat: Oral mucosa appears to be moist. No oropharyngeal erythema. NECK: Supple. LUNGS: Clear to auscultation bilaterally. No wheezes, rales, or rhonchi. HEART: Sounds S1, S2. Regular rate and rhythm. No murmurs, rubs, or gallops. ABDOMEN: Soft, flat, nontender. Bowel sounds are present. EXTREMITIES: Pulses were 2+ in the pedal area. He is moving all 4 extremities with 5/5 strength. NEUROLOGIC: He is awake. He is alert. He is oriented x3. No gross focal deficits. SKIN: Intact with the exception he has on the left fifth toe does appear to be necrotic. He appears to have an ulcer between the fourth and fifth toe that does appear to have some eschar tissue on it and some sloughing of the tissue and this redness extending above the toes on that left side. The toes did appear to be dusky on that fourth toe as well. Otherwise, his skin was intact. He has a well- healed surgical incision to the right foot and a healed ulcer to the right foot as well. Otherwise, the skin was intact. DIAGNOSTIC STUDIES/LAB DATA: WBC of 11.8, RBC of 2.45. His hemoglobin is 7.9 , which is right near his baseline. His hematocrit was 240. ESR 120. Sodium 135, potassium 4.9, chloride 96, bicarb of 32, BUN 23, creatinine of 4.62, it is near his baseline, glucose 102, lactate 0.9. The uric acid is 0.1, calcium 8.8, total bili 0.4, AST 14, ALT 11, alk phos 186. Albumin is 3.3. Urine showed 3+ protein, 1+ wbc, 1+ rbc, 1+ glucose. He had a foot x-ray obtained today, impression: No osteolysis, osteosclerosis, or periosteal reaction of the fifth toe to indicate osteomyelitis, persistent clinical concern consider an MRI or in the setting of contraindication of MRI, three phase bone scan for further assessment. Old medical records were reviewed. ASSESSMENT AND PLAN: Mr. Singletary is a 52-year-old male patient coming into the ED today with complaints of left foot infection. He will admitted under inpatient status for: 1. Left foot diabetic ulcer with possible osteomyelitis and obviously dry gangrene. At this point, we will go ahead and put the patient on vancomycin and cefepime. I did touch base with Dr. Louis, he will evaluate. I will get MRI and ABIs as well and we will continue to follow. Blood cultures have been sent and we will continue with antibiotic therapy. 2. Diabetes. Lispro sliding scale. 3. Hypertension. Continue his Norvasc. 4. Hyperlipidemia. At this point, he can follow with primary. 5. End-stage renal disease. I did touch base with Dr. Johnson, he will evaluate. 6. History of anemia. We will follow the H and H, transfuse as needed. 7. Gout. Not an active issue currently. 8. Hypoxic and is noted that his sats were 90% to 91% on room air. I am putting him on 2 L. We are checking chest x-ray. We will continue to follow this. He is not having any pain or complaining of shortness of breath. 9. Recent indeterminate intermediate stress test. If surgery is going to be pursued and possible amputation, I would recommend probably touching base with Cardiology prior to surgery. I am going to get an EKG and the chest x-ray. He had an echo recently showed an EF of 50% to 55%, but Cardiology may need to way in for risk stratification. 10. DVT prophylaxis. We will go ahead and put him on heparin subcu. 11. Code status. Full code. 12. Fluids, electrolytes, and nutrition. He can have a consistent carb diet. TIME SPENT: On the admission was 60 minutes, greater than half of the time was spent [id number] with the patient, obtaining history and physical, the other half of the time was spent going over the plan of care with the patient and implementing the plan of care. I did discuss the plan of care with my attending, Dr. Licea, who is in agreement. BLAINE AVILA, CHEPE [id number]/[facility] #: [id number] MTDD
[2017-02-17] MEDS: Heparin VIAL(*) 5000 UNITS/ML VIAL (FIVE THOUSAND) SUBCUT SCH (23:45)
[2017-02-17] MEDS: Cefepime 1 GM in Dextrose(*) 1 GM/50 ML BAG IV SCH (23:46)
[2017-02-18 05:11] LABS: Hematocrit 27 % (42-52); Hemoglobin 8.7 g/dl (14.0-18.0); Mean Corpuscular HGB Conc 32 g/dl (31-36); Mean Corpuscular Hemoglobin 33 pg (27-31); Mean Corpuscular Volume 101 fL (80-94); Mean Platelet Volume 8 um3 (7.4-10.4); Red Blood Count 2.68 10^6/ul (4.0-5.4); Red Cell Distribution Width 15 % (10.5-15); White Blood Count 11.5 10^3/ul (3.5-10.8)
[2017-02-18] MEDS: Heparin VIAL(*) 5000 UNITS/ML VIAL (FIVE THOUSAND) SUBCUT SCH ×3 (05:53→21:31)
[2017-02-18 06:46] LABS: BUN/Creatinine Ratio 5.1 (8-20); Calcium 8.7 mg/dL (8.6-10.3); EGFR African American 15.3 (>60); EGFR Non-African American 11.9 (>60)
[2017-02-18 06:58] LABS: Potassium 5.3 mmol/L (3.5-5.0)
[2017-02-18] MEDS ORDERED: Sodium Polystyrene ORAL.SOL* 15 GM/60 ML BTL PO ONE (07:30)
[2017-02-18] MEDS: Insulin LISPRO* 1 UNITS UNIT SUBCUT SCH ×2 (07:41→12:08)
[2017-02-18] MEDS: Sevelamer TAB* 800 MG PO SCH ×3 (07:45→17:37)
[2017-02-18] MEDS: Aspirin EC Low Dose* 81 MG TAB.EC PO SCH (08:02)
[2017-02-18] MEDS ORDERED: amLODIPine TAB* 5 MG PO SCH (09:00)
--- NOTE | 2017-02-18 14:55 | PN ---
Subjective Date of Service: 02/18/17 Interval History: Pt was placed on 02 at night, but did not need it further in aM No new complaints Objective Active Medications: Acetaminophen (Tylenol Tab*) 650 mg PO Q4H PRN PRN Reason: FEVER/PAIN Amlodipine Besylate (Norvasc Tab*) 10 mg PO DAILY [facility] Last Admin: 02/18/17 08:02 Dose: 10 mg Aspirin (Aspirin Ec Low Dose*) 81 mg PO DAILY [facility] Last Admin: 02/18/17 08:02 Dose: 81 mg Dextrose (D50w Syringe 50 Ml*) 12.5 gm IV PUSH .FOR FS < 60 - SS PRN PRN Reason: FS < 60 Heparin Sodium (Porcine) (Heparin Vial(*)) 5,000 units SUBCUT Q8HR [facility] Last Admin: 02/18/17 05:53 Dose: 5,000 units Cefepime HCl (Maxipime 1 Gm In Dextrose Duplex (*)) 1 gm in 50 mls @ 100 mls/ hr IV 2330 [facility] Last Admin: 02/17/17 23:46 Dose: 100 mls/hr Insulin Human Lispro (Humalog*) 0 units SUBCUT AC [facility] PRN Reason: Protocol Last Admin: 02/18/17 12:08 Dose: 2 units Ondansetron HCl (Zofran Inj*) 4 mg IV Q6H PRN PRN Reason: NAUSEA Sevelamer Carbonate (Renvela Tab*) 1,600 mg PO TID WITH MEALS [facility] Last Admin: 02/18/17 12:08 Dose: 1,600 mg Vital Signs - 8 hr 02/18/17 02/18/17 02/18/17 07:46 07:55 11:17 Temperature 98.0 F 97.9 F Pulse Rate 90 83 Respiratory 16 18 16 Rate Blood Pressure 168/90 148/80 (mmHg) O2 Sat by Pulse 86 99 Oximetry Oxygen Devices in Use Now: None Appearance: 52 yo M in nAD, aAOx3 Eyes: No Scleral Icterus, PERRLA Ears/Nose/Mouth/Throat: NL Teeth, Lips, Gums, Mucous Membranes Moist Neck: NL Appearance and Movements; NL JVP, Trachea Midline Respiratory: Symmetrical Chest Expansion and Respiratory Effort, Clear to Auscultation Cardiovascular: NL Sounds; No Murmurs; No JVD, RRR Abdominal: NL Sounds; No Tenderness; No Distention, No Hepatosplenomegaly Lymphatic: No Cervical Adenopathy Extremities: No Clubbing, Cyanosis, - - s/p R TMA with small(1cm) ulcer sovered with eschar), left foot s/p 2nd toe amputation-healed, and necrotic left 5th toe Skin: No Nodules or Sclerosis, - - see above Neurological: Alert and Oriented x 3, NL Muscle Strength and Tone Result Diagrams: 02/18/17 04:52 02/18/17 05:00 Assess/Plan/Problems-Billing Assessment: 51 yo M h/o HTN, DM2, ESRD(on HD Tues/[place]ly/Sat), s/p TMA on R and left 2nd toe amputation presents with necrotic left 5th toe - Patient Problems (1) Toe gangrene Comment: Necrotic left fifth toe. Pt ailyn be continued with Cefepime, Vanc stopped due to wound cx neg for MRSA. Pt is planned by Dr. Louis for amputation of toes 3-5 on left tomorrow. Pt has h/o recent stress test (01/31/17)read as "indeterminate" due to EF at 37% and Echo done the same hospital stay with EF of 55% and mod mitral regurg. D/w Dr. 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 Pt's stress test was indeterminate only due to low EF noted. At this point no more cardiac work up is needed . Pt is an acceptable candidate for anticipated surgery. Please see print out of ACS surgical risk calculation attached to paper chart (2) Diabetes Comment: presenting FSG <100 stop checking FSG Resolved after pt lost 120 lbs in the past year (3) Macrocytic anemia Comment: consistent with chronic, (4) Hypertension Comment: cont Norvasc, controlled will hold prior to surgery tomorrow (5) ESRD (end stage renal disease) Comment: On HD Tues/[place]ly/Sat (6) DVT prophylaxis Comment: HSQ
--- NOTE | 2017-02-18 15:23 | RAD ---
Indication: Lower extremity wounds. Comparison: January 25, 2015 Technique: Ankle and brachial blood pressure measurement. Calculated ankle-brachial indices. REPORT: The right ankle brachial index is could not be calculated due to noncompressible vessels. Preserved triphasic waveforms at the posterior tibial and dorsalis pedis arteries. Grossly unremarkable RIGHT ankle pulse volume recording. The left ankle brachial index is could not be calculated due to noncompressible vessels. Low amplitude biphasic posterior tibial and biphasic dorsalis pedis waveforms. Grossly unremarkable LEFT ankle pulse volume recording. IMPRESSION: Noncompressible vessels limiting assessment. Based on the appearance of the LEFT posterior tibial and dorsalis pedis waveforms there is likely low-grade intrinsic LEFT lower extremity stenoses or inflow disease.
--- NOTE | 2017-02-18 16:44 | ED ---
Vasu Reilly Alfonso, scribed for Fermín Oscar MD on 02/17/17 at 1746 . HPI Diabetic - HPI Summary HPI Summary: This patient is a 52 year old M with DM presenting referred from [facility] to [facility] with a chief complaint of left 5th toe pain worse since a few hours ago. The patient rates the pain 4/10 in severity. Symptoms aggravated and alleviated by nothing. Patient reports left 5th toe erythema, discoloration, and discharge. Patient denies fever, and chills. His last dialysis treatment was this morning. - History Of Current Complaint Chief Complaint: EDExtremityUpper Time Seen by Provider: 02/17/17 17:34 Hx Obtained From: Patient Onset/Duration: Gradual Onset, Lasting Hours, Still Present Timing: Constant Severity Currently: Moderate - 4/10 pain Character: Alert Aggravating: Nothing Alleviating: Nothing - Allergies/Home Medications Allergies/Adverse Reactions: Allergies Allergy/AdvReac Type Severity Reaction Status Date / Time No Known Allergies Allergy Verified 02/17/17 14:25 PMH/Surg Hx/FS Hx/Imm Hx Endocrine/Hematology History: Reports: Hx Diabetes - peripheral neuropathy Denies: Hx Anticoagulant Therapy, Hx Thyroid Disease Cardiovascular History: Reports: Hx Angina - "tightness", "like congestion", Hx Hypercholesterolemia, Hx Hypertension Denies: Hx Congestive Heart Failure, Hx Coronary Artery Disease, Hx Deep Vein Thrombosis, Hx Myocardial Infarction, Hx Pacemaker/ICD, Hx Valvular Heart Disease Respiratory History: Reports: Hx Asthma - Bronchospasm/albuterol use., Hx Seasonal Allergies Denies: Hx Chronic Obstructive Pulmonary Disease (COPD), Hx Lung Cancer GI History: Denies: Hx Gall Bladder Disease, Hx Gastrointestinal Bleed, Hx Ulcer, Hx Urosepsis History: Denies: Hx Kidney Stones, Hx Renal Disease Musculoskeletal History: Reports: Hx Arthritis - HANDS, Hx Gout, Other Musculoskeletal History Sensory History: Reports: Hx Contacts or Glasses - READING GLASSES Denies: Hx Cataracts, Hx Glaucoma, Hx Hearing Aid Opthamlomology History: Reports: Hx Contacts or Glasses - READING GLASSES Denies: Hx Cataracts, Hx Glaucoma Neurological History: Denies: Hx Dementia, Hx Migraine, Hx Seizures, Hx Transient Ischemic Attacks (TIA) Psychiatric History: Denies: Hx Anxiety, Hx Depression, Hx Panic Disorder, Hx Schizophrenia, Hx Bipolar Disorder - Surgical History Surgery Procedure, Year, and Place: left second toe amputation 2009. Left ankle ORIF. RIGHT GREAT TOE AMPUTATION 2012, ALL OTHER TOES AMPUTATED 12/2014. HERNIA A CHILD Hx Anesthesia Reactions: No Infectious Disease History: Yes Infectious Disease History: Reports: Hx Shingles Denies: Hx Hepatitis, Hx Human Immunodeficiency Virus (HIV), History Other Infectious Disease, Traveled Outside the [place] in Last 30 Days - Family History Known Family History: Positive: Hypertension - Social History Alcohol Use: Rare Hx Substance Use: No Substance Use Type: Reports: None Hx Tobacco Use: No Smoking Status (MU): Never Smoked Tobacco Review of Systems Negative: Fever, Chills Positive: Other - left 5th toe pain Positive: Other - left 5th toe erythema, discoloration, and discharge. All Other Systems Reviewed And Are Negative: Yes Physical Exam - Summary Physical Exam Summary: VITAL SIGNS: Reviewed. GENERAL: Patient is a well-developed and nourished male who is lying comfortable in the stretcher. Patient is not in any acute respiratory distress. HEAD AND FACE: No signs of trauma. No ecchymosis, hematomas or skull depressions. No sinus tenderness. EYES: PERRLA, EOMI x 2, No injected conjunctiva, no nystagmus. EARS: Hearing grossly intact. Ear canals and tympanic membranes are within normal limits. MOUTH: Oropharynx within normal limits. NECK: Supple, trachea is midline, no adenopathy, no JVD, no carotid bruit, no c- spine tenderness, neck with full ROM. CHEST: Symmetric, no tenderness at palpation LUNGS: Clear to auscultation bilaterally. No wheezing or crackles. CVS: Regular rate and rhythm, S1 and S2 present, no murmurs or gallops appreciated. ABDOMEN: Soft, non-tender. No signs of distention. No rebound no guarding, and no masses palpated. Bowel sounds are normal. EXTREMITIES: FROM in all major joints, and no edema. 3rd, 4th, and 5th left toes with yellowish discoloration. In-between 4th and 5th left toe has necrotic tissue with foul odor which is tender to palpation. Erythema dorsal aspect of left foot. 2nd left toe amputation. NEURO: Alert and oriented x 3. No acute neurological deficits. Speech is normal and follows commands. SKIN: Dry and warm Triage Information Reviewed: Yes Vital Signs On Initial Exam: Initial Vitals Temp Pulse Resp BP Pulse Ox 99.8 F 101 20 144/97 97 02/17/17 17:11 02/17/17 17:11 02/17/17 17:11 02/17/17 17:11 02/17/17 17:11 Vital Signs Reviewed: Yes Diagnostics - Vital Signs Vital Signs Temp Pulse Resp BP Pulse Ox 02/17/17 17:11 99.8 F 101 20 144/97 97 - Laboratory Result Diagrams: 02/17/17 17:51 02/17/17 17:51 Lab Statement: Any lab studies that have been ordered have been reviewed, and results considered in the medical decision making process. - Radiology Left Foot X-Ray Radiology Interpretation Completed By: Radiologist - Pending official interpretation from radiologist. See Gradeable. Diabetic Course/Dx - Course Assessment/Plan: This patient is a 52 year old M with DM presenting referred from [facility] to [facility] with a chief complaint of left 5th toe pain worse since a few hours ago. The patient rates the pain 4/10 in severity. Symptoms aggravated and alleviated by nothing. Patient reports left 5th toe erythema, discoloration , and discharge. Patient denies fever, and chills. His last dialysis treatment was this morning. Left Foot X-Ray Pending official interpretation from radiologist. See Gradeable. Test results show WBC of 11.8, chronic anemia, chronic renal failure, and CRP of 12.71. Infection seems to be getting worse and he is failing outpatient abx. In the ED course the patient was given Zosyn. Consulted Dr. Garber (hospitalist) at 1844 who agrees to admit. The patient is agreeable with this plan. The patient is hemodynamically stable, alert and oriented x3. - Diagnoses Provider Diagnoses: Cellulitis of left lower extremity, r/o osteomyelitis - Physician Notifications Discussed Care Of Patient With: Jazmine Garber Time Discussed With Above Provider: 18:44 Instructed by Provider To: Other - Consulted Dr. Garber (hospitalist) at 1844 who agrees to admit. Discharge - Discharge Plan Condition: Stable Disposition: ADMITTED TO [facility] Referrals: Rosalio JARVIS,Lety Hyde [Primary Care Provider] - The documentation as recorded by the Vasu peoples Alfonso accurately reflects the service I personally performed and the decisions made by , Fermín Oscar MD.
--- NOTE | 2017-02-18 18:39 | CONS ---
CONSULTATION REPORT: DATE OF CONSULT: 02/18/17 HISTORY OF PRESENT ILLNESS: Sreekanth is a 52-year-old gentleman admitted to the hospitalist service with a foul smelling wound left forefoot with gangrene of the fifth toe. He has a history of dialysis started a few months ago. He thinks his medical care fell apart right after his in December and his physician retired previous to that. Basically, Sreekanth had not been seeking any medical attention for quite a while. At any rate, he is a dialysis patient and admitted yesterday for the left forefoot gangrene. PHYSICAL EXAM: Sreekanth's left foot is warm, but decreased sensation below the ankle. The left fifth toe is necrotic and black and the plantar and lateral 50 % of the fourth toe is black as well. There is wet gangrene surrounding both of these toes, slightly foul smelling. The third toe is intact. Second toe previously amputated. Great toe intact. ASSESSMENT/PLAN: Sreekanth with Velarde 5 ulceration left fourth and fifth toes, previous second toe amputation. Patient is a candidate for third, fourth and fifth toe excision probably with met head excisions as well. This probably will allow soft tissue coverage. This will be electively performed with NPO after midnight. [id number]/[facility] #: [id number] MTDD
[2017-02-18] MEDS: Acetaminophen TAB* 325 MG PO PRN ×2 (19:08→23:37)
[2017-02-18] MEDS: Cefepime 1 GM in Dextrose(*) 1 GM/50 ML BAG IV SCH (23:37)
[2017-02-19] MEDS: Heparin VIAL(*) 5000 UNITS/ML VIAL (FIVE THOUSAND) SUBCUT SCH ×3 (05:49→21:46)
[2017-02-19] MEDS ORDERED: Vancomycin Random Level* NOTE FOLLOW UP PRN (06:00)
[2017-02-19 07:04] LABS: Hematocrit 25 % (42-52); Hemoglobin 8.1 g/dl (14.0-18.0); Mean Corpuscular HGB Conc 32 g/dl (31-36); Mean Corpuscular Hemoglobin 33 pg (27-31); Mean Corpuscular Volume 101 fL (80-94); Mean Platelet Volume 8 um3 (7.4-10.4); Red Blood Count 2.47 10^6/ul (4.0-5.4); Red Cell Distribution Width 16 % (10.5-15)
--- NOTE | 2017-02-19 07:29 | PN ---
Progress Note - Progress Note Date of Service: 02/17/17 Note: Mr Singletary is a 52M DM2 presenting with dry gangrene of the L 4th/5th toes for admission, IV ABX, IV fluids, & orthopedic consultation.
[2017-02-19] MEDS: Aspirin EC Low Dose* 81 MG TAB.EC PO SCH (08:50)
[2017-02-19] MEDS: Sevelamer TAB* 800 MG PO SCH ×3 (08:51→17:17)
--- NOTE | 2017-02-19 12:24 | RAD ---
Indication: LEFT fourth and fifth toe pain. Gangrene. Previous second toe amputation. Comparison: February 17, 2017 radiographs. Technique: VoluBilla 1.5 Cathie [id number] with GEM suite. Report: Motion artifact significantly limits image quality. Post amputation of the second toe at level of the proximal metaphysis of the proximal phalanx. There is bone marrow edema at the proximal phalanx of the fifth toe with sparing at the base. Corresponding loss of normal T1 marrow hyperintensity. While motion artifact limits assessment there is no compelling bone marrow edema at the middle or distal phalanges of the fifth toe. Mild bone marrow edema flanking the second and third tarsal metatarsal articulations most consistent with reactive change secondary to arthropathy. Negative for fracture. Soft tissue edema without evidence for a loculated fluid collection to suggest abscess. IMPRESSION: While motion artifact limits assessment the bone marrow signal changes at the fifth proximal phalanx with sparing of the phalangeal base is suspicious for osteomyelitis given the clinical context.
[2017-02-19] MEDS ORDERED: Epoetin Alfa* 10,000 UNITS/ML VIAL IV ONE (14:00)
[2017-02-19] MEDS ORDERED: KETAMINE HCL* 50 MG/ML 10 ML VIAL ONE (14:48)
[2017-02-19] MEDS ORDERED: fentaNYL* 50 MCG/ML 2 ML VIAL (100 MCG VIAL) ONE (14:48)
[2017-02-19] MEDS ORDERED: Midazolam* 1 MG/ML 10 ML VIAL (10 MG) ONE (14:48)
[2017-02-19] MEDS ORDERED: ceFAZolin 2 GM PREMIX (*) 2 GM/50 ML BAG IVPB ONE (15:06)
[2017-02-19] MEDS ORDERED: Lidocaine 2% PF * 5 ML VIAL ONE ×2 (15:07→15:52)
[2017-02-19] MEDS ORDERED: Bupivacaine 0.5% SDV PF* 30 ML VIAL ONE (15:07)
[2017-02-19] MEDS ORDERED: Propofol* 10 MG/ML 20 ML BTL IV PUSH ONE (15:52)
--- NOTE | 2017-02-19 17:20 | PN ---
Subjective Date of Service: 02/19/17 Interval History: Patient seen and examined at bedside. Patient denies pain at this time. Family History: Unchanged from Admission Social History: Unchanged from Admission Past Medical History: Unchanged from Admission Objective Active Medications: Acetaminophen (Tylenol Tab*) 650 mg PO Q4H PRN Aspirin (Aspirin Ec Low Dose*) 81 mg PO DAILY [facility] Heparin Sodium (Porcine) (Heparin Vial(*)) 5,000 units SUBCUT Q8HR [facility] Cefepime HCl (Maxipime 1 Gm In Dextrose Duplex (*)) 1 gm in 50 mls @ 100 mls/ hr IV 2330 [facility] Ondansetron HCl (Zofran Inj*) 4 mg IV Q6H PRN Sevelamer Carbonate (Renvela Tab*) 1,600 mg PO TID WITH MEALS [facility] Vital Signs Temp Pulse Resp BP Pulse Ox 97.3 F 83 16 165/90 98 02/19/17 16:10 02/19/17 16:45 02/19/17 16:45 02/19/17 16:45 02/19/17 16:45 Oxygen Devices in Use Now: Nasal Cannula Appearance: sitting up in bed, NAD Eyes: No Scleral Icterus, PERRLA Ears/Nose/Mouth/Throat: NL Teeth, Lips, Gums Neck: NL Appearance and Movements; NL JVP Respiratory: Symmetrical Chest Expansion and Respiratory Effort, Clear to Auscultation Cardiovascular: NL Sounds; No Murmurs; No JVD, RRR Abdominal: NL Sounds; No Tenderness; No Distention Extremities: No Edema, - - LLE dressing intact; distal CSM intact Skin: - - No erythema Neurological: Alert and Oriented x 3, NL Muscle Strength and Tone Lines/Tubes/Other Access: Clean, Dry and Intact Peripheral IV Nutrition: Taking PO's Result Diagrams: 02/19/17 05:46 02/18/17 05:00 Assess/Plan/Problems-Billing 51 yo M h/o HTN, DM2, ESRD(on HD /Sun/Sun), s/p TMA on R and left 2nd toe amputation presents with necrotic left 5th toe - Patient Problems (1) Toe gangrene Current Visit: Yes Comment: Necrotic left fifth toe now s/p amputation 3-5th toe. Continue with Cefepime. Wound culture shows enterococcus. Will ask for ID consult. MRI suspicious for ostemyelitis. ABIs limited exam as vessels non- compressible. (2) Diabetes Comment: Sugars controlled. Hold fingersticks. (3) ESRD (end stage renal disease) Comment: Dialyzed this morning prior to surgery. On HD Tu/Beverly/Sun (4) Hypertension Comment: Will give Norvasc now. (5) Macrocytic anemia Comment: Chronic anemia. (6) DVT prophylaxis Comment: HSQ (7) Patient is full code Status and Disposition: Inpatient for necrotic toe s/p amputation. Discharge home when stable.
[2017-02-19] MEDS: Acetaminophen TAB* 325 MG PO PRN (20:33)
[2017-02-19] MEDS: Cefepime 1 GM in Dextrose(*) 1 GM/50 ML BAG IV SCH (23:18)
[2017-02-19] MEDS ORDERED: Morphine INJ* 2 MG/ML 1 ML SYRINGE (TWO MG - NEW SYRINGE VERSION) ONE (23:52)
[2017-02-19] MEDS: Morphine INJ* 2 MG/ML 1 ML SYRINGE (TWO MG - NEW SYRINGE VERSION) IV PRN (23:52)
[2017-02-19] MEDS: HYDROcodone/ACETAMIN 5-325 MG* 1 TAB PO PRN (23:58)
[2017-02-20] MEDS: Morphine INJ* 2 MG/ML 1 ML SYRINGE (TWO MG - NEW SYRINGE VERSION) IV PRN ×3 (03:53→13:51)
[2017-02-20] MEDS: HYDROcodone/ACETAMIN 5-325 MG* 1 TAB PO PRN ×5 (03:56→22:40)
[2017-02-20 05:36] LABS: Hematocrit 24 % (42-52); Hemoglobin 7.9 g/dl (14.0-18.0); Mean Corpuscular HGB Conc 34 g/dl (31-36); Mean Corpuscular Hemoglobin 33 pg (27-31); Mean Corpuscular Volume 98 fL (80-94); Mean Platelet Volume 8 um3 (7.4-10.4); Red Cell Distribution Width 15 % (10.5-15); White Blood Count 9.7 10^3/ul (3.5-10.8)
[2017-02-20] MEDS: Heparin VIAL(*) 5000 UNITS/ML VIAL (FIVE THOUSAND) SUBCUT SCH ×3 (05:45→22:47)
[2017-02-20 05:48] LABS: BUN/Creatinine Ratio 5.1 (8-20); Calcium 8.7 mg/dL (8.6-10.3); EGFR African American 12.9 (>60); Potassium 4.8 mmol/L (3.5-5.0)
[2017-02-20] MEDS: Aspirin EC Low Dose* 81 MG TAB.EC PO SCH (07:51)
[2017-02-20] MEDS: Sevelamer TAB* 800 MG PO SCH ×3 (07:51→17:27)
--- NOTE | 2017-02-20 08:24 | PN ---
Progress Note - Progress Note Date of Service: 02/20/17 SOAP: Subjective: []Patient seen at bedside. Pain is well controlled, reported as 5/10. Denies chest pain, shortness of breath, nausea, dizziness. Objective: []Wound culture: enterococcus Vital Signs Temp 98.8 F 02/20/17 07:25 Pulse 85 02/20/17 07:25 Resp 16 02/20/17 07:51 BP 150/73 02/20/17 07:25 Pulse Ox 92 02/20/17 07:25 Intake & Output 02/19/17 02/20/17 02/20/17 18:59 06:59 18:59 Intake Total 150 750 Output Total 250 Balance 150 500 Weight 235 lb Intake: IV Fluids 150 LR 100 NS 50ML, Cefazolin 2G 50 IVPB 50 ABX - CEFEPIME 50 Oral 700 Output: Urine 250 Other: Estimated Void Large # Voids 1 Laboratory Last Values WBC 9.7 10^3/ul (3.5-10.8) 02/20/17 05:11 RBC 2.40 10^6/ul (4.0-5.4) L 02/20/17 05:11 Hgb 7.9 g/dl (14.0-18.0) L 02/20/17 05:11 Hct 24 % (42-52) L 02/20/17 05:11 MCV 98 fL (80-94) H 02/20/17 05:11 MCH 33 pg (27-31) H 02/20/17 05:11 MCHC 34 g/dl (31-36) 02/20/17 05:11 RDW 15 % (10.5-15) 02/20/17 05:11 Plt Count 298 10^3/ul (150-450) 02/20/17 05:11 MPV 8 um3 (7.4-10.4) 02/20/17 05:11 Neut % (Auto) 66.3 % (38-83) 02/20/17 05:11 Lymph % (Auto) 17.7 % (25-47) L 02/20/17 05:11 [place] % (Auto) 10.4 % (1-9) H 02/20/17 05:11 Eos % (Auto) 4.2 % (0-6) 02/20/17 05:11 Baso % (Auto) 1.4 % (0-2) 02/20/17 05:11 Absolute Neuts (auto) 6.5 10^3/ul (1.5-7.7) 02/20/17 05:11 Absolute Lymphs (auto) 1.7 10^3/ul (1.0-4.8) 02/20/17 05:11 Absolute Monos (auto) 1.0 10^3/ul (0-0.8) H 02/20/17 05:11 Absolute Eos (auto) 0.4 10^3/ul (0-0.6) 02/20/17 05:11 Absolute Basos (auto) 0.1 10^3/ul (0-0.2) 02/20/17 05:11 Absolute Nucleated RBC 0 10^3/ul 02/20/17 05:11 Nucleated RBC % 0 02/20/17 05:11 ESR 120 mm/Hr (0-20) H 02/17/17 17:51 Sodium 132 mmol/L (133-145) L 02/20/17 05:11 Potassium 4.8 mmol/L (3.5-5.0) 02/20/17 05:11 Chloride 92 mmol/L (101-111) L 02/20/17 05:11 Carbon Dioxide 29 mmol/L (22-32) 02/20/17 05:11 Anion Gap 11 mmol/L (2-11) 02/20/17 05:11 BUN 30 mg/dL (6-24) H 02/20/17 05:11 Creatinine 5.93 mg/dL (0.67-1.17) H 02/20/17 05:11 Est GFR ( Amer) 12.9 (>60) 02/20/17 05:11 Est GFR (Non-Af Amer) 10.0 (>60) 02/20/17 05:11 BUN/Creatinine Ratio 5.1 (8-20) L 02/20/17 05:11 Glucose 85 mg/dL (70-100) 02/20/17 05:11 POC Glucose (mg/dL) 81 mg/dL (70-100) 02/19/17 15:05 Lactic Acid 0.9 mmol/L (0.5-2.0) 02/17/17 17:51 Uric Acid 3.1 mg/dL (4.4-7.6) L 02/17/17 17:51 Calcium 8.7 mg/dL (8.6-10.3) 02/20/17 05:11 Total Bilirubin 0.40 mg/dL (0.2-1.0) 02/17/17 17:51 AST 14 U/L (13-39) 02/17/17 17:51 ALT 11 U/L (7-52) 02/17/17 17:51 Alkaline Phosphatase 186 U/L (34-104) H 02/17/17 17:51 C-Reactive Protein 12.71 mg/L (< 5.00) H 02/17/17 17:51 Total Protein 6.6 g/dL (6.4-8.9) 02/17/17 17:51 Albumin 3.3 g/dL (3.2-5.2) 02/17/17 17:51 Globulin 3.3 g/dL (2-4) 02/17/17 17:51 Albumin/Globulin Ratio 1.0 (1-3) 02/17/17 17:51 Urine Color Straw 02/17/17 20:07 Urine Appearance Clear 02/17/17 20:07 Urine pH 9.0 (5-9) 02/17/17 20:07 Ur Specific [place] 1.004 (1.010-1.030) L 02/17/17 20:07 Urine Protein 3+(>=500 mg/dl) (Negative) H 02/17/17 20:07 Urine Ketones Negative (Negative) 02/17/17 20:07 Urine Blood Negative (Negative) 02/17/17 20:07 Urine Nitrate Negative (Negative) 02/17/17 20:07 Urine Bilirubin Negative (Negative) 02/17/17 20:07 Urine Urobilinogen Negative (Negative) 02/17/17 20:07 Ur Leukocyte Esterase Negative (Negative) 02/17/17 20:07 Urine WBC (Auto) 1+(6-10/hpf) (Absent) H 02/17/17 20:07 Urine RBC (Auto) 1+(3-5/hpf) (Absent) H 02/17/17 20:07 Urine Bacteria Absent (Absent) 02/17/17 20:07 Urine Glucose 1+(50 mg/dl) (Negative) H 02/17/17 20:07 General: Well appearing, no acute distress LLE: Splint in place, CDI. Sensation intact to light touch distally. Brisk capillary refill distally. Popliteal pulse 2+ Assessment: []POD 1 s/p amputation 3-5 left toes. Plan: []Heel WB LLE Heparin Continue with Cefepime. ID consult pending
--- NOTE | 2017-02-20 10:14 | OP ---
DATE OF OPERATION: 02/19/17 - ROOM #341 DATE OF : 63 ATTENDING SURGEON: Adrián Louis MD PRINCIPLE SOFTWARE ENGINEER: Akanksha Zhang PA-C ANESTHESIOLOGIST: Sunil Cardenas MD ANESTHESIA: MAC PRE-OP DIAGNOSIS: Necrotic 4th and 5th left toes, sole, intact 3rd toe, previous 2nd toe amputation. POST-OP DIAGNOSIS: Necrotic 4th and 5th left toes, sole, intact 3rd toe, previous 2nd toe amputation. OPERATIVE PROCEDURE: Distal transmetatarsal amputation 2, 3, 4 and 5 toes. DESCRIPTION OF PROCEDURE: The patient was taken to the operating room where transverse elliptical incision was made just at the distal end of the metatarsals of 2, 3, 4 and 5. We dissected down over the base of the proximal phalanx of the 2nd toe, disarticulating this portion and then across the 3rd, 4th, and 5th metatarsal shaft, which were divided with microsagittal saw. We did disarticulate the 3rd, 4th, and 5th toes with flap. We rounded slightly these cut metatarsal necks and irrigated thoroughly with saline. We then closed after hemostasis obtained, with the tourniquet dropped and cultures being sent, with 2-0 Vicryl sutures and 2-0 Prolene sutures for the skin closure. Compression dressing and plaster splint was applied. [id number]/[facility] #: [id number] [facility]
--- NOTE | 2017-02-20 14:23 | PN ---
Subjective Date of Service: 02/20/17 Interval History: Patient seen and examined at bedside Patient cleared PT with new weight bearing restrictions. Pain relatively well controlled but comes in bursts. [place] no other acute complaints. Family History: Unchanged from Admission Social History: Unchanged from Admission Past Medical History: Unchanged from Admission Objective Active Medications: Acetaminophen (Tylenol Tab*) 650 mg PO Q4H PRN Hydrocodone Bitart/Acetaminophen ([place] 5-325 Tab*) 1 tab PO Q4H PRN Hydrocodone Bitart/Acetaminophen ([place] 5-325 Tab*) 2 tab PO Q4H PRN Aspirin (Aspirin Ec Low Dose*) 81 mg PO DAILY DONIS Heparin Sodium (Porcine) (Heparin Vial(*)) 5,000 units SUBCUT Q8HR DONIS Cefepime HCl (Maxipime 1 Gm In Dextrose Duplex (*)) 1 gm in 50 mls @ 100 mls/ hr IV 2330 DONIS Morphine Sulfate (Morphine Inj (Syringe)*) 2 mg IV Q4H PRN Ondansetron HCl (Zofran Inj*) 4 mg IV Q6H PRN Sevelamer Carbonate (Renvela Tab*) 1,600 mg PO TID WITH MEALS PENDING SALE TO [facility] Vital Signs Temp Pulse Resp BP Pulse Ox 98.6 F 87 16 154/69 91 02/20/17 11:31 02/20/17 11:31 02/20/17 13:51 02/20/17 11:31 02/20/17 11:31 Oxygen Devices in Use Now: None Appearance: sitting up in bed, NAD Eyes: No Scleral Icterus, PERRLA Ears/Nose/Mouth/Throat: NL Teeth, Lips, Gums, Mucous Membranes Moist Neck: NL Appearance and Movements; NL JVP Respiratory: Symmetrical Chest Expansion and Respiratory Effort, Clear to Auscultation Cardiovascular: NL Sounds; No Murmurs; No JVD, RRR Abdominal: NL Sounds; No Tenderness; No Distention Extremities: No Edema Skin: - - LLE dressing C/D/I Neurological: Alert and Oriented x 3, NL Muscle Strength and Tone Lines/Tubes/Other Access: Clean, Dry and Intact Peripheral IV Nutrition: Taking PO's Result Diagrams: 02/20/17 05:11 02/20/17 05:11 Assess/Plan/Problems-Billing 51 yo M h/o HTN, DM2, ESRD(on HD Tues/[place]/Sat), s/p TMA on R and left 2nd toe amputation presents with necrotic left 5th toe - Patient Problems (1) Toe gangrene Comment: Necrotic left fifth toe now s/p amputation 3-5th toe. Culture growing Enterococcus sensistive to Levaquin. Will start Levaquin w/ ESRD dosing. Await ID input for duration. MRI suspicious for ostemyelitis. ABIs limited exam as vessels non-compressible. Will add renal dosed neurontin for pain in addition to [place]. (2) Diabetes Comment: Sugars controlled. Hold fingersticks. (3) ESRD (end stage renal disease) Comment: HD MWF while hospitalized (4) Hypertension Comment: Norvasc restarted. (5) Macrocytic anemia Comment: Chronic anemia. (6) DVT prophylaxis Comment: HSQ (7) Patient is full code Status and Disposition: Inpatient for necrotic toe s/p amputation. Discharge home when stable.
[2017-02-20] MEDS ORDERED: Levofloxacin TAB* 750 MG PO ONE (14:30)
[2017-02-20] MEDS: Gabapentin CAP(*) 100 MG PO SCH (14:44)
[2017-02-20] MEDS: amLODIPine TAB* 5 MG PO SCH (14:44)
[2017-02-21] MEDS: Heparin VIAL(*) 5000 UNITS/ML VIAL (FIVE THOUSAND) SUBCUT SCH ×4 (06:24→21:17)
[2017-02-21] MEDS: Sevelamer TAB* 800 MG PO SCH ×3 (08:02→17:24)
[2017-02-21] MEDS: Gabapentin CAP(*) 100 MG PO SCH (08:02)
[2017-02-21] MEDS: Aspirin EC Low Dose* 81 MG TAB.EC PO SCH (08:02)
[2017-02-21] MEDS: HYDROcodone/ACETAMIN 5-325 MG* 1 TAB PO PRN ×2 (08:02→17:23)
[2017-02-21] MEDS: amLODIPine TAB* 5 MG PO SCH (08:02)
--- NOTE | 2017-02-21 08:19 | PN ---
Progress Note - Progress Note Date of Service: 02/21/17 SOAP: Subjective: [] Patient seen at bedside. His pain is well controlled and he has no complaints today. Denies CP, SOB, nausea and dizziness. Objective: [] Vital Signs Temp 98.4 F 02/21/17 07:35 Pulse 76 02/21/17 07:35 Resp 16 02/21/17 08:02 BP 152/77 02/21/17 07:35 Pulse Ox 98 02/21/17 07:35 Intake & Output 02/20/17 02/21/17 02/21/17 18:59 06:59 18:59 Intake Total 400 580 Output Total 350 125 Balance 50 455 Intake: Oral 400 580 Output: Urine 350 125 Laboratory Last Values WBC 9.7 10^3/ul (3.5-10.8) 02/20/17 05:11 RBC 2.40 10^6/ul (4.0-5.4) L 02/20/17 05:11 Hgb 7.9 g/dl (14.0-18.0) L 02/20/17 05:11 Hct 24 % (42-52) L 02/20/17 05:11 MCV 98 fL (80-94) H 02/20/17 05:11 MCH 33 pg (27-31) H 02/20/17 05:11 MCHC 34 g/dl (31-36) 02/20/17 05:11 RDW 15 % (10.5-15) 02/20/17 05:11 Plt Count 298 10^3/ul (150-450) 02/20/17 05:11 MPV 8 um3 (7.4-10.4) 02/20/17 05:11 Neut % (Auto) 66.3 % (38-83) 02/20/17 05:11 Lymph % (Auto) 17.7 % (25-47) L 02/20/17 05:11 [place] % (Auto) 10.4 % (1-9) H 02/20/17 05:11 Eos % (Auto) 4.2 % (0-6) 02/20/17 05:11 Baso % (Auto) 1.4 % (0-2) 02/20/17 05:11 Absolute Neuts (auto) 6.5 10^3/ul (1.5-7.7) 02/20/17 05:11 Absolute Lymphs (auto) 1.7 10^3/ul (1.0-4.8) 02/20/17 05:11 Absolute Monos (auto) 1.0 10^3/ul (0-0.8) H 02/20/17 05:11 Absolute Eos (auto) 0.4 10^3/ul (0-0.6) 02/20/17 05:11 Absolute Basos (auto) 0.1 10^3/ul (0-0.2) 02/20/17 05:11 Absolute Nucleated RBC 0 10^3/ul 02/20/17 05:11 Nucleated RBC % 0 02/20/17 05:11 ESR 120 mm/Hr (0-20) H 02/17/17 17:51 Sodium 132 mmol/L (133-145) L 02/20/17 05:11 Potassium 4.8 mmol/L (3.5-5.0) 02/20/17 05:11 Chloride 92 mmol/L (101-111) L 02/20/17 05:11 Carbon Dioxide 29 mmol/L (22-32) 02/20/17 05:11 Anion Gap 11 mmol/L (2-11) 02/20/17 05:11 BUN 30 mg/dL (6-24) H 02/20/17 05:11 Creatinine 5.93 mg/dL (0.67-1.17) H 02/20/17 05:11 Est GFR ( Amer) 12.9 (>60) 02/20/17 05:11 Est GFR (Non-Af Amer) 10.0 (>60) 02/20/17 05:11 BUN/Creatinine Ratio 5.1 (8-20) L 02/20/17 05:11 Glucose 85 mg/dL (70-100) 02/20/17 05:11 POC Glucose (mg/dL) 81 mg/dL (70-100) 02/19/17 15:05 Lactic Acid 0.9 mmol/L (0.5-2.0) 02/17/17 17:51 Uric Acid 3.1 mg/dL (4.4-7.6) L 02/17/17 17:51 Calcium 8.7 mg/dL (8.6-10.3) 02/20/17 05:11 Total Bilirubin 0.40 mg/dL (0.2-1.0) 02/17/17 17:51 AST 14 U/L (13-39) 02/17/17 17:51 ALT 11 U/L (7-52) 02/17/17 17:51 Alkaline Phosphatase 186 U/L (34-104) H 02/17/17 17:51 C-Reactive Protein 12.71 mg/L (< 5.00) H 02/17/17 17:51 Total Protein 6.6 g/dL (6.4-8.9) 02/17/17 17:51 Albumin 3.3 g/dL (3.2-5.2) 02/17/17 17:51 Globulin 3.3 g/dL (2-4) 02/17/17 17:51 Albumin/Globulin Ratio 1.0 (1-3) 02/17/17 17:51 Urine Color Straw 02/17/17 20:07 Urine Appearance Clear 02/17/17 20:07 Urine pH 9.0 (5-9) 02/17/17 20:07 Ur Specific [place] 1.004 (1.010-1.030) L 02/17/17 20:07 Urine Protein 3+(>=500 mg/dl) (Negative) H 02/17/17 20:07 Urine Ketones Negative (Negative) 02/17/17 20:07 Urine Blood Negative (Negative) 02/17/17 20:07 Urine Nitrate Negative (Negative) 02/17/17 20:07 Urine Bilirubin Negative (Negative) 02/17/17 20:07 Urine Urobilinogen Negative (Negative) 02/17/17 20:07 Ur Leukocyte Esterase Negative (Negative) 02/17/17 20:07 Urine WBC (Auto) 1+(6-10/hpf) (Absent) H 02/17/17 20:07 Urine RBC (Auto) 1+(3-5/hpf) (Absent) H 02/17/17 20:07 Urine Bacteria Absent (Absent) 02/17/17 20:07 Urine Glucose 1+(50 mg/dl) (Negative) H 02/17/17 20:07 []General: Well appearing, no acute distress LLE: Splint in place, CDI. Sensation intact to light touch distally. Brisk capillary refill distally. Popliteal pulse 2+ Assessment: []POD 2 s/p amputation 3-5 left toes. Plan: []Heel WB LLE with assistance Levofloxacin Neurontin added yesterday for pain control FU in office next week
[2017-02-21] MEDS: Morphine INJ* 2 MG/ML 1 ML SYRINGE (TWO MG - NEW SYRINGE VERSION) IV PRN (10:18)
--- NOTE | 2017-02-21 12:25 | CONS ---
CONSULTATION REPORT: DATE OF CONSULT: 02/21/17 REQUESTING PHYSICIAN: Dr. Louis. CONSULTING SERVICE: Infectious Disease. REASON FOR CONSULT: Left foot infection. IMPRESSION: 1. Left 3rd, 4th, and 5th toe necrosis and chronic osteomyelitis, status post transmetatarsal amputation of the 2nd through 5th toes. Wound culture is growing Enterococcus faecalis. There was a gram-negative fatmata on the Gram stain as well as gram-positive cocci. They were not anaerobic cultures. That may be a gram- negative anaerobe. 2. Ivq-jwyeobs-akbzcdfnz diabetes. 3. Obesity. RECOMMENDATIONS: Agree with Levaquin and Flagyl pills. Given good surgical margins, I think a 3-week course of oral antibiotics would be reasonable as long as it is continuing to improve. Because he is taking sevelamer, we will change Levaquin to Augmentin, which will cover Enterococcus and potential gram- negative anaerobes. HISTORY OF PRESENT ILLNESS: This is a 52-year-old diabetic with a history of left 2nd toe amputation, admitted with left foot infection. He started dialysis a couple of weeks ago, but otherwise has neglected his health and had a stressful fall with passing of his and [id number]. Has not paid attention to his health and not sure how long he has had trouble brewing with his left foot. He came to the hospital on 02/17/17 redness, pain, swelling in the foot and malaise and numbness in his arms. X-ray of the foot showed no osteolysis or periosteal reaction. Because of gross soft tissue infection and necrosis and gangrene, he was taken to the operating room on 02/19/17 for transmetatarsal amputation. A wound culture taken in the ER is growing Enterococcus as noted above. His blood cultures on admission are negative. He is on Levaquin pills here, tolerating them well. He does not have any pain in his foot. PAST MEDICAL HISTORY: 1. Irv-sugnndi-bdehmzmbi diabetes. 2. Obesity. 3. Osteomyelitis of the left 2nd toe, status post amputation. 4. Hyperlipidemia. 5. Hypertension. 6. Gout. 7. Anemia. 8. End-stage renal disease, on hemodialysis. 9. Status post right transmetatarsal amputation. 10. Status post open reduction internal fixation in the left lower extremity. MEDICATIONS: 1. Tylenol. 2. Amlodipine. 3. Aspirin. 4. Gabapentin. 5. Heparin subcutaneous injection. 6. Levaquin 500 mg by mouth every 48 hours. 7. Sevelamer. ALLERGIES: No known drug allergies. FAMILY HISTORY: No recurrent infections. SOCIAL HISTORY: He lives in [place]. No travel. No sick contacts. REVIEW OF SYSTEMS: A 14-point review of systems was negative except as noted above. PHYSICAL EXAM: Vital Signs: Temperature is 37, heart rate 70, respiratory rate 16, blood pressure 150/70, O2 sat 98% on room air. General: He is awake, not in distress. Neurologic: He is oriented x3. Follows all commands. HEENT: There is no conjunctival hemorrhage. Oropharynx without lesions. Neck: Supple without nuchal rigidity. Lymph Nodes: There is no inguinal, axillary, or epitrochlear lymphadenopathy. Heart: Regular rate and rhythm without murmurs, rubs, or gallops. Lungs: Clear to auscultation bilaterally. Abdomen : Soft, nontender, and nondistended. There are bowel sounds present. Skin: There is no rash or splinter hemorrhages. Musculoskeletal: Left foot was casted. DIAGNOSTIC STUDIES/LAB DATA: White blood cell count 9, hemoglobin 7.9, and platelets 298,000. Creatinine is 5, potassium 4.8. Please see impression and recommendations outlined above. Thanks for asking me to see Mr. Singletary in consultation. [id number]/[facility] #: [id number] CRESCENCIO
[2017-02-21] MEDS ORDERED: Heparin DIALYSIS ONLY(*) 1,000 UNITS/ML VIAL DIALYSIS ONE (14:00)
[2017-02-21] MEDS ORDERED: Epoetin Alfa* 10,000 UNITS/ML VIAL IV ONE (14:00)
--- NOTE | 2017-02-21 14:00 | DCNOTE ---
Subjective Date of Service: 02/21/17 Interval History: Patient seen and examined at bedside. Patient reports improved pain control. Patient ambulating independently while maintaining WB precautions. Family History: Unchanged from Admission Social History: Unchanged from Admission Past Medical History: Unchanged from Admission Objective Active Medications: Acetaminophen (Tylenol Tab*) 650 mg PO Q4H PRN Hydrocodone Bitart/Acetaminophen ([place] 5-325 Tab*) 1 tab PO Q4H PRN Hydrocodone Bitart/Acetaminophen ([place] 5-325 Tab*) 2 tab PO Q4H PRN Amlodipine Besylate (Norvasc Tab*) 10 mg PO DAILY DONIS Amoxicillin/Clavulanate Potassium (Augmentin Tab*) 500 mg PO Q24H DONIS Aspirin (Aspirin Ec Low Dose*) 81 mg PO DAILY DONIS Epoetin David (Epogen*) 10,000 units IV ONCE ONE Gabapentin (Neurontin Cap(*)) 100 mg PO DAILY [facility] Heparin Sodium (Porcine) (Heparin Vial(*)) 5,000 units SUBCUT Q8HR DONIS Heparin Sodium (Porcine) (Heparin Dialysis Only(*)) 5,000 units DIALYSIS ONCE ONE Morphine Sulfate (Morphine Inj (Syringe)*) 2 mg IV Q4H PRN Ondansetron HCl (Zofran Inj*) 4 mg IV Q6H PRN Sevelamer Carbonate (Renvela Tab*) 1,600 mg PO TID WITH MEALS [facility] Vital Signs Temp Pulse Resp BP Pulse Ox 98.2 F 70 16 127/74 98 02/21/17 11:34 02/21/17 11:34 02/21/17 11:34 02/21/17 11:34 02/21/17 11:34 Oxygen Devices in Use Now: None Appearance: sitting up in bed, NAD Eyes: No Scleral Icterus, PERRLA Ears/Nose/Mouth/Throat: NL Teeth, Lips, Gums, Mucous Membranes Moist Neck: NL Appearance and Movements; NL JVP Respiratory: Symmetrical Chest Expansion and Respiratory Effort, Clear to Auscultation Cardiovascular: NL Sounds; No Murmurs; No JVD, RRR Abdominal: NL Sounds; No Tenderness; No Distention Extremities: No Edema Skin: No Rash or Ulcers, - - LLE dressing intact Neurological: Alert and Oriented x 3, NL Muscle Strength and Tone Lines/Tubes/Other Access: Clean, Dry and Intact Peripheral IV Nutrition: Taking PO's Result Diagrams: 02/20/17 05:11 02/20/17 05:11 Assess/Plan/Problems-Billing 51 yo M h/o HTN, DM2, ESRD(on HD Tu/[place]/Sat), s/p TMA on R and left 2nd toe amputation presents with necrotic left 5th toe - Patient Problems (1) Toe gangrene (2) Diabetes (3) ESRD (end stage renal disease) (4) Hypertension (5) Macrocytic anemia (6) DVT prophylaxis (7) Patient is full code Status and Disposition: Inpatient for necrotic toe s/p amputation. Patient stable to be discharged home. Please see full dictated discharge summary for detail regarding plan outlined above.
[2017-02-21] MEDS: Amoxicillin/Clavulanate TAB* 500 MG PO SCH (17:23)
--- NOTE | 2017-02-21 17:45 | PN ---
Hospitalist Progress Note Date of Service: 02/21/17 HOSPITALIST ADDENDUM: Patient seen post dialysis. C/o of dizziness and nausea. VSS stable. Zofran given for nausea. Patient lives alone, so will observe overnight and postpone discharge till the morning.
[2017-02-21] MEDS ORDERED: Ondansetron INJ* 2 MG/ML VIAL IV ONE (19:08)
[2017-02-22] MEDS: Heparin VIAL(*) 5000 UNITS/ML VIAL (FIVE THOUSAND) SUBCUT SCH ×3 (05:00→22:16)
--- NOTE | 2017-02-22 05:01 | DS ---
Cc: Dr. Louis; Dr. Johnson; VANDANA Velez * DISCHARGE SUMMARY: DATE OF ADMISSION: 02/17/17 DATE OF DISCHARGE: 02/21/17 PRIMARY CARE PROVIDER: VANDANA Velez MANAGER PROVIDER RELATIONS: Dr. Johnson. ORTHOPEDIC CONSULTATION WHILE IN THE HOSPITAL: Adrián Louis MD ATTENDING PHYSICIAN: Taryn Yeung MD * (report dictated by Virginia Pierre NP) PRIMARY DIAGNOSIS: Left toe gangrene. SECONDARY DIAGNOSES: 1. Non-insulin dependent diabetes. 2. End-stage renal disease. PROCEDURES WHILE IN THE HOSPITAL: 02/19/17: Distal transmetatarsal amputation of 2, 3, 4 and [address] toes[address] refer to [address] Louis's dictation for details. STUDIES WHILE IN THE HOSPITAL: 1. 02/17/17: Foor X-ray. No osteolysis or osteosclerosis or periosteal reaction of the 5th toe to indicate osteomyelitis. If there is a persistent clinical concern, consider an MRI or in the setting of contraindication to MRI, 3-phase bone scan for further assessment. 2. Chest x-ray portable on 02/17/17: Mild pulmonary vascular congestion, interstitial edema. 3. ABIs 02/18/17: Non-compressible vessels limiting assessment: Based on the appearance of the left posterior tibial and dorsalis pedis waveforms, there is likely low grade intrinsic left lower extremity stenosis or inflow disease. 4. MRI of the left lower extremity without contrast: While motion artifact limits assessment, the bone marrow signal changes at the fifth proximal phalanx with sparing of the phalangeal basis suspicious for osteomyelitis given the clinical context. MEDICATIONS AT THE TIME OF DISCHARGE: 1. New medication: Augmentin 500 mg oral daily for 3 weeks. 2. Aspirin 81 mg oral daily. 3. Neurontin 100 mg oral daily. 4. [place] 5/325 two tablets every 4 hours as needed for pain. Max daily dose of 6. The patient's I-STOP record was checked and patient has currently has no active narcotic prescriptions. The following medications should be resumed that the patient came in on: 1. Renvela 1600 mg oral 3 times daily with meals. 2. Zocor 10 mg oral at 1700. 3. Norvasc 10 mg oral daily. HISTORY OF PRESENT ILLNESS AND HOSPITAL COURSE: Mr. Singletary is a 52-year-old male with past medical history significant for hypertension, diabetes, hyperlipidemia, end-stage renal disease who presented to the emergency room on 02/17/17 with a complaint of 4th and 5th toe ulcers. In the emergency room, there was concern for underlying osteomyelitis and need for amputation. The patient was admitted to the short-stay surgical floor for further evaluation. The patient was seen in consultation by Dr. Louis. Please refer to his consultation for detail. The patient went to the operating room for amputation of his 4th and 5th toes. The patient was placed on vancomycin and cefepime on admission and these were continued. The patient was seen in consultation by Dr. Mcwilliams from Infectious Disease who recommended transitioning to daily Augmentin and treat for a total for 3 weeks given that there were good surgical margins. The patient's wound grew enterococcus, yet there was also gram- negative fatmata on the Gram stain, so he will have gram-negative coverage as well. Postoperatively, the patient did well. He continued his regular dialysis schedule. Hemoglobin remained stable around his baseline, which was 8. Laboratory work remained stable. Sugars were controlled without any insulin. The patient was seen by Physical Therapy and with heel only weightbearing restriction, he was able to ambulate safely with the walker. At this point, he was stable to be discharged home. He is having dialysis today and subsequently can be discharged after this. He will resume dialysis on Sunday morning. DISCHARGE PLAN: The patient was discharged on a renal consistent carb diet. The patient is partial weightbearing on his left leg heel only. The patient has been instructed to follow up with Dr. Louis within 7 to 10 days. The patient should also follow up with his primary care provider within 4 to 7 days as well as Dr. Mcwilliams in 1 month once he has completed antibiotics. The patient has been provided with all of their phone numbers to contact them for appointments. The patient should return to the hospital if he experiences any high fevers. The patient's dressing should be left intact until he follows up with Dr. Louis. I have reviewed all the instructions with the patient, he is agreeable with his discharge today. This is a summarized report of a complex medical history and hospital stay. For more details, please see the entire medical record. TIME SPENT: Time for this discharge was 60 minutes and 35 minutes were spent with the patient reviewing medications at discharge and followup instructions. VIRGINIA PIERRE NP [id number]/[facility] #: [id number] CRESCENCIO
[2017-02-22] MEDS: Sevelamer TAB* 800 MG PO SCH ×3 (08:20→17:10)
[2017-02-22] MEDS: amLODIPine TAB* 5 MG PO SCH (08:50)
[2017-02-22] MEDS: Gabapentin CAP(*) 100 MG PO SCH (08:50)
[2017-02-22] MEDS: Aspirin EC Low Dose* 81 MG TAB.EC PO SCH (08:51)
[2017-02-22] MEDS ORDERED: Levofloxacin TAB* 500 MG PO SCH (09:00)
[2017-02-22] MEDS: Amoxicillin/Clavulanate TAB* 500 MG PO SCH (18:05)
[2017-02-22] MEDS: HYDROcodone/ACETAMIN 5-325 MG* 1 TAB PO PRN (20:19)
[2017-02-23 00:14] VITALS: BP 131/75
== END 2017-02-22 21:55 | disposition home or self-care (01) | DRG 305 ==
LOC: ED 17:00 → SSU 21:08
PROVIDERS: ADMIT Hospitalist; ATTEND Internal Medicine
PROC: 0Y6N0ZD Detachment at Left Foot, Partial 4th Ray, Open Approach (ICD-10-PCS; 2017-02-19)
PROC: 0Y6N0ZF Detachment at Left Foot, Partial 5th Ray, Open Approach (ICD-10-PCS; 2017-02-19)
PROC: 0Y6S0Z1 Detachment at Left 2nd Toe, High, Open Approach (ICD-10-PCS; 2017-02-19)
PROC: 5A1D70Z Performance of Urinary Filtration, Intermittent, Less than 6 Hours Per Day (ICD-10-PCS; 2017-02-19)
PROC: 0Y6N0ZC Detachment at Left Foot, Partial 3rd Ray, Open Approach (ICD-10-PCS; principal; 2017-02-19 15:15)
PROC: 5A1D70Z Performance of Urinary Filtration, Intermittent, Less than 6 Hours Per Day (ICD-10-PCS; 2017-02-21)
DX: E11.52 Type 2 diabetes mellitus with diabetic peripheral angiopathy with gangrene (principal); N18.6 End stage renal disease; E11.42 Type 2 diabetes mellitus with diabetic polyneuropathy; E11.22 Type 2 diabetes mellitus with diabetic chronic kidney disease; I12.0 Hypertensive chronic kidney disease with stage 5 chronic kidney disease or end stage renal disease; M86.672 Other chronic osteomyelitis, left ankle and foot; E11.69 Type 2 diabetes mellitus with other specified complication; J45.909 Unspecified asthma, uncomplicated; M10.9 Gout, unspecified; M19.042 Primary osteoarthritis, left hand; M19.041 Primary osteoarthritis, right hand; E78.5 Hyperlipidemia, unspecified; D63.1 Anemia in chronic kidney disease; E66.9 Obesity, unspecified; I34.0 Nonrheumatic mitral (valve) insufficiency; D53.9 Nutritional anemia, unspecified; L97.529 Non-pressure chronic ulcer of other part of left foot with unspecified severity; B95.2 Enterococcus as the cause of diseases classified elsewhere; Z79.82 Long term (current) use of aspirin; Z89.422 Acquired absence of other left toe(s); Z89.411 Acquired absence of right great toe; Z82.49 Family history of ischemic heart disease and other diseases of the circulatory system; Z99.2 Dependence on renal dialysis; Z80.0 Family history of malignant neoplasm of digestive organs; Z72.89 Other problems related to lifestyle; Z68.31 Body mass index [BMI] 31.0-31.9, adult
CPT/HCPCS: 36415; 71010; 80048; 80053; 80061; 81003; 81015; 83605; 84443; 84550; 85025; 85652; 86140; 87040; 87070; 87077; 87186; 87205; 87640; 87641; 88305; 88311; 90935; 93005; 93922; 93970; 99212; A9270-GY; G0257; G0463; J0690; J0692; J0885; J1644; J2250; J2270; J2405; J2543; J2704; J3010; J3370

== ENCOUNTER 2017-04-02 13:15 | Inpatient (IN) | payer BC, MEDICARE ==
[2017-04-09] MEDS ORDERED: Sodium Citrate/Citric Acid* 15 ML UDC PO ONE (06:00)
[2017-04-09] MEDS ORDERED: Famotidine IV* 10 MG/ML 2 ML (20 mg) IV ONE (06:00)
[2017-04-09] MEDS ORDERED: Acetaminophen TAB* 325 MG PO ONE (06:00)
[2017-04-09] MEDS ORDERED: Buffered Lidocaine 0.9% SYRIN* 5 ML/SYR SYRINGE INTRADERM ONE (06:00)
[2017-04-23] MEDS ORDERED: NS 0.45% 1000 ML BAG* 1,000 ML IV SCH (06:00)
[2017-04-23] MEDS ORDERED: Famotidine IV* 10 MG/ML 2 ML (20 mg) IV ONE (06:00)
[2017-04-23] MEDS ORDERED: Buffered Lidocaine 0.9% SYRIN* 5 ML/SYR SYRINGE INTRADERM ONE (06:00)
[2017-04-23] MEDS ORDERED: Famotidine IV* 10 MG/ML 2 ML (20 mg) ONE (09:57)
[2017-04-23] MEDS ORDERED: ceFAZolin 2 GM PREMIX (*) 2 GM/50 ML BAG IVPB ONE (09:58)
[2017-04-23 13:24] LABS: ABS Basophils 0.1 10^3/ul (0-0.2); ABS Eosinophils 0.3 10^3/ul (0-0.6); ABS Lymphocytes 1.4 10^3/ul (1.0-4.8); ABS Monocytes 1.2 10^3/ul (0-0.8); ABS Nucleated RBC 0 10^3/ul; Eosinophil % 2.2 % (0-6); Hematocrit 21 % (42-52); Hemoglobin 6.7 g/dl (14.0-18.0); Lymphocyte % 11.1 % (25-47); Mean Corpuscular HGB Conc 32 g/dl (31-36); Mean Corpuscular Hemoglobin 32 pg (27-31); Mean Corpuscular Volume 99 fL (80-94); Mean Platelet Volume 8 um3 (7.4-10.4); Nucleated Red Blood Cells % 0; Platelet Count 431 10^3/ul (150-450); Red Blood Count 2.07 10^6/ul (4.0-5.4); Red Cell Distribution Width 19 % (10.5-15); White Blood Count 12.9 10^3/ul (3.5-10.8)
[2017-04-23 13:37] LABS: INR 1.13 (0.77-1.02)
[2017-04-23] MEDS ORDERED: Bupivacaine 0.5% SDV PF* 10-30ML VIAL ONE (13:44)
[2017-04-23] MEDS ORDERED: Lidocaine 2% PF * 5 ML VIAL ONE (14:02)
[2017-04-23] MEDS ORDERED: Propofol* 10 MG/ML 20 ML BTL IV PUSH ONE (14:02)
[2017-04-23] MEDS ORDERED: fentaNYL* 50 MCG/ML 2 ML VIAL (100 MCG VIAL) ONE (14:02)
--- NOTE | 2017-04-23 14:42 | RAD ---
HISTORY: Hypoxia COMPARISONS: March 29, 2017 VIEWS: 1: frontal portable view of the chest at 2:25 PM FINDINGS: LINES AND TUBES: A central venous catheter is noted from a right internal jugular vein approach with the tip overlying the cavoatrial junction. CARDIOMEDIASTINAL SILHOUETTE: The cardiomediastinal silhouette is normal for portable technique. PLEURA: The costophrenic angles are sharp. No pleural abnormalities are noted. LUNG PARENCHYMA: There is patchy alveolar opacification of the right lung base. ABDOMEN: The upper abdomen is clear. There is no subphrenic gas. BONES AND SOFT TISSUES: Degenerative changes are noted along the spine. IMPRESSION: 1. LINES AND TUBES ABOVE. 2. PATCHY RIGHT BASILAR ATELECTASIS VERSUS CONSOLIDATION.
[2017-04-23] MEDS ORDERED: Acetaminophen TAB* 325 MG PO PRN (16:34)
[2017-04-23] MEDS ORDERED: Dextrose 50% Syringe 50 ML* 25 GM/50 ML SYRINGE IV PUSH PRN (18:18)
[2017-04-23] MEDS: HYDROcodone/ACETAMIN 5-325 MG* 1 TAB PO PRN (19:46)
[2017-04-23 20:01] LABS: EGFR Non-African American 8.6 (>60)
[2017-04-23] MEDS: Gabapentin CAP(*) 100 MG PO SCH (20:46)
--- NOTE | 2017-04-23 20:50 | HP ---
HISTORY AND PHYSICAL: DATE OF ADMISSION: 04/23/17 PRIMARY CARE PROVIDER: None. Formerly Dr. Garry Weathers, who has retired. ATTENDING PHYSICIAN: Adrián Rawls MD * (dictated by Josy Redding NP). CHIEF COMPLAINT: Left foot pain, shortness of breath. HISTORY OF PRESENT ILLNESS: Mr. Singletary is a 52-year-old male with past medical history significant for insulin dependent diabetes mellitus, end-stage renal disease on hemodialysis on Tuesdays, and Saturdays, hypertension , gout, mitral valve insufficiency, osteomyelitis of his left foot and anemia who presented initially to the hospital today for an elective revision of his left foot due to a chronic wound. The patient states the he was in his usual state of health upon presentation to the hospital today, denying any recent fevers, chills, chest pain, shortness of breath, nausea, vomiting and diarrhea. The patient states that after they started with IV fluids, he developed what he described as a chest heaviness and described it as "feeling like my lungs were filling up with fluid" as he has had previously had in the past when he has needed emergent dialysis. The patient was taken to the operating room after receiving 100 mcg of fentanyl by Anesthesia, where he complained of cough , some shortness of breath and was found to have oxygen saturations that were 68 % to 72% without oxygen. The patient reports loosing approximately 150 pounds in the last 8 months without trying. The patient was hospitalized in January and underwent a stress test showing concern for possible ischemia. The patient was seen in consultation by Dr. Chavez who felt that he had actually had a negative stress test and he was seen by Dr. Chavez prior to this planned surgery and had cardiac clearance. Anesthesia decided to cancel the case due to hypoxia and the hospitalists were asked to evaluate the patient. While in the recovery room, the patient was noted to have oxygen levels in the high 90s on 4 L, he was titrated down and was able to maintain his sats in the low 90s with 1 L. It was felt that his hypoxia could be secondary to medications and he was given a longer time in the recovery room to see if his oxygen recovered. The patient's oxygen saturations remained in the 90s, but after he was ambulated to the bathroom, he was found to have an oxygen saturation of 79%. Reported feeling as though he had phlegm in his chest, he was unable to get up and a dry cough. He had a chest xray showing right basilar consolidation. Due to this, it was decided to admit the patient for further workup of his acute hypoxic respiratory failure. PAST MEDICAL HISTORY: 1. Hypertension. 2. Diabetes mellitus. 3. Osteomyelitis. 4. Chronic kidney disease stage 4, on hemodialysis Sunday, , Sunday. 5. Anemia. 6. Gout. 7. Mitral valve insufficiency. PAST SURGICAL HISTORY: 1. Status post hernia repair. 2. Status post left second toe amputation. 3. Status post right first toe amputation. 4. Status post left second to fifth toe amputation. 5. Status post ORIF of left ankle. HOME MEDICATIONS: Include: 1. Sevelamer 1600 mg oral 3 times daily with meals. 2. Colace 100 mg oral daily as needed for constipation. 3. Aspirin 81 mg oral daily. 4. Tylenol 1000 mg oral 3 times daily as needed for pain. 5. [place] 5/325 one tablet oral every 4 to 6 hours as needed for pain. ALLERGIES: No known drug allergies. FAMILY HISTORY: The patient's father had an RI in his 60s. He has a maternal grandfather who had a history of an RI at age 75. Mother with history of liver cancer and a paternal grandmother with diabetes and passed at age 94. SOCIAL HISTORY: The patient denies tobacco, alcohol or recreational drug use, although when the patient does drink he tends to drink in excess. The patient lives with his father, Regis Singletary who will be his surrogate decision maker in the event he is unable to make decisions for himself. REVIEW OF SYSTEMS: I performed a 11-point review of systems, all the pertinent positives and negatives are mentioned in the history of present illness. The remaining review of systems are negative. PHYSICAL EXAMINATION GENERAL APPEARANCE: The patient is alert, pleasant, appears to be in no acute distress. VITAL SIGNS: Temperature 98.4, heart rate 84, respiratory rate 18, O2 saturation 97% on 6 L via nasal cannula. Blood pressure 196/69. HEENT: Normocephalic, atraumatic. Pupils equal, round, and reactive to light. Extraocular movements are intact. RESPIRATORY: There is no accessory muscle use. The lungs are clear to auscultation bilateral. CARDIOVASCULAR: Regular rate and rhythm. S1, S2 present. There is no murmurs , rubs or gallops heard. ABDOMEN: Soft, nontender, nondistended. Bowel sounds present x4. EXTREMITIES: There is mild bilateral lower extremity edema. DP and PT pulses are 1+ and symmetric. MUSCULOSKELETAL: There is no clubbing or cyanosis noted. The patient exhibits good strength in all extremities. NEUROLOGIC: The patient is alert and oriented x4. Cranial nerves II through XII are grossly intact. PSYCHOLOGICAL: The patient is calm and cooperative. SKIN: The patient has a nonhealing wound on his left foot at the site of his second, third and fourth metatarsals with a large amount of eschar. DIAGNOSTIC STUDIES/LABORATORY DATA: Preoperative labs from 03/29/17 show sodium of 134, potassium 4.8, chloride 93, CO2 of 31, BUN 24, creatinine 3.98, and glucose 98. White blood cell count 12.6, hemoglobin 7.2, hematocrit 22, and platelet count 478,000. Preoperative urinalysis from 03/31/17 shows a negative urinalysis. EKG from today shows a normal sinus rhythm and a rate of 80. There are no acute signs of ischemia. This EKG is similar to previous EKG from 03/29/17. Chest x-ray from today. Radiologist impression: Patchy right basilar atelectasis versus consolidation. A central venous catheter is noted from the right internal jugular vein approaching with the tip overlying the cavoatrial junction. IMPRESSION: Mr. Singletary is a 52-year-old with past medical history significant for insulin dependent diabetes mellitus; gout; hypertension; chronic kidney disease stage 4, on hemodialysis, Sunday, , Sunday; mitral valve insufficiency and osteomyelitis of left foot who presented initially to the hospital for an elective left foot revision with Dr. Louis and was found to be hypoxic in the operating room and surgery was canceled. The patient will be admitted as an observation for acute hypoxic respiratory failure. ASSESSMENT/PLAN: 1. Acute hypoxic respiratory failure: I suspect this could be secondary to the fentanyl the patient had received initially in the operating room. He was able to be titrated down on oxygen in the recovery room, but became hypoxic with ambulation. The patient reports mild shortness of breath and a cough, feels as though he has chest congestion with mucus that he is unable to clear. In the differential is pulmonary embolus and we will get a CTA of the chest. The patient also reports having a significant amount of weight loss in the past 8 months up to approximately 150 pounds total. A CTA will also allow us to get a better assessment of his chest to help rule out any other underlying lung disease. 2. Osteomyelitis of the left foot with non-healing wound: The patient's planned surgery for today will have to be rescheduled. I will place a wound consult for management of his chronic foot wound as he has a large area of eschar and is not currently following with the wound clinic. The area does not appear to be infected and I do not feel he needs antibiotics for this at this time. 3. Mild leukocytosis: The patient denies any fever or chills. Based on his chest x-ray, it does not appear that he has a pneumonia. We will get a urinalysis and trend. His mild leukocytosis could be secondary to a stress response. We will also see what the chest CT shows. 4. Chronic kidney disease stage 4, on hemodialysis: The patient will be continued on hemodialysis. We will notify Dr. Johnson's office in the morning that the patient is here. 5. Hypertension: We will follow the patient's blood pressures. He has been hypertensive intermittently in recovery room. He is not currently on any antihypertensives. 6. Diabetes Mellitus: Glucose checks ACHS and Lispro sliding scale. 7. Fluids, electrolytes and nutrition: The patient will be on a renal, consistent carbohydrate diet. 8. Code status. Full code. 9. DVT prophylaxis. The patient is at moderate risk and will be placed on subcu heparin. 10. Disposition. Observation. TIME SPENT: Time for this admission was approximately 60 minutes, greater than half the time was spent with the patient discussing medications, past medical history, events leading up to his arrival today, performing physical examination. The case has been reviewed with the attending Dr. Rawls, who agrees with the plan of care. Reviewed by SIA GARNER 02/22/18 1243 [id number]/[facility] #: [id number] CRESCENC[place]
[2017-04-23] MEDS ORDERED: Iodixanol* (CONTRAST) 320 MG/ML 100 ML SDV IV ONE (21:17)
[2017-04-23] MEDS: Heparin VIAL(*) 5000 UNITS/ML VIAL (FIVE THOUSAND) SUBCUT SCH (21:36)
[2017-04-23 22:39] LABS: Urine Appearance Clear; Urine Blood Negative (Negative); Urine Color Straw; Urine Ketones Negative (Negative); Urine Protein 3+(>=500 mg/dL) (Negative); Urine Specific Gravity 1.012 (1.010-1.030); Urine Urobilinogen Negative (Negative)
[2017-04-24] MEDS: HYDROcodone/ACETAMIN 5-325 MG* 1 TAB PO PRN ×4 (04:14→23:22)
[2017-04-24 05:20] LABS: ABS Basophils 0.1 10^3/ul (0-0.2); ABS Eosinophils 0.2 10^3/ul (0-0.6); ABS Monocytes 0.8 10^3/ul (0-0.8); ABS Neutrophils 10.7 10^3/ul (1.5-7.7); ABS Nucleated RBC 0 10^3/ul; Eosinophil % 1.6 % (0-6); Hematocrit 20 % (42-52); Hemoglobin 6.6 g/dl (14.0-18.0); Lymphocyte % 8.2 % (25-47); Mean Corpuscular HGB Conc 33 g/dl (31-36); Mean Corpuscular Hemoglobin 33 pg (27-31); Mean Corpuscular Volume 100 fL (80-94); Mean Platelet Volume 7 um3 (7.4-10.4); Nucleated Red Blood Cells % 0; Platelet Count 398 10^3/ul (150-450); Red Blood Count 2.04 10^6/ul (4.0-5.4); Red Cell Distribution Width 19 % (10.5-15); White Blood Count 12.9 10^3/ul (3.5-10.8)
[2017-04-24 05:38] LABS: EGFR Non-African American 7.5 (>60)
[2017-04-24] MEDS: Heparin VIAL(*) 5000 UNITS/ML VIAL (FIVE THOUSAND) SUBCUT SCH ×3 (05:49→21:59)
[2017-04-24] MEDS: Insulin LISPRO* 1 UNITS UNIT SUBCUT SCH ×3 (07:18→15:51)
--- NOTE | 2017-04-24 08:05 | RAD ---
HISTORY: Hypoxia COMPARISONS: None TECHNIQUE: Multiple contiguous axial CT scans of the chest were obtained without intravenous contrast. Coronal and sagittal multiplanar reformations are also submitted for review. FINDINGS: The study is limited by the lack of intravenous contrast. This limits evaluation of the solid organs and vasculature. Evaluation is also limited by patient breathing motion artifact. NECK AND THYROID: The lower neck and thyroid are unremarkable. CHEST WALL: There is no lower cervical, axillary, or supraclavicular lymphadenopathy by size criteria. There is bilateral gynecomastia. HEART AND PERICARDIUM: Coronary and valvular cardiac calcifications are noted. AORTA AND PULMONARY VASCULATURE: The aorta and pulmonary vasculature are normal. MEDIASTINUM: There is no mediastinal lymphadenopathy by size criteria. DESMOND: There is no hilar lymphadenopathy by size criteria. AIRWAY AND ESOPHAGUS: The airway is unremarkable, without endobronchial filling defect. The esophagus is grossly normal. LUNG PARENCHYMA: There is segmental consolidation of the left lower lobe with patchy ground glass opacification throughout both lungs elsewhere. There is interlobular septal thickening of the lung apices bilaterally. PLEURA: There are small bilateral pleural effusions. UPPER ABDOMEN: The upper abdomen is unremarkable. BONES AND SOFT TISSUES: Degenerative changes are noted of the spine with multiple bridging marginal osteophytes suggestive of diffuse idiopathic skeletal hyperostosis. OTHER: A central venous catheter is noted from a right internal jugular vein approach with the tip in the superior vena cava. IMPRESSION: 1. LEFT LOWER LOBE CONSOLIDATION WITH DIFFUSE PATCHY AIRSPACE DISEASE ELSEWHERE. ADDITIONALLY, THERE IS INTERLOBULAR SEPTAL THICKENING WITH AN APICAL PREDOMINANCE. 2. THIS APPEARANCE SUGGESTS A COMBINATION OF BOTH PNEUMONIC CONSOLIDATION AND PULMONARY INTERSTITIAL EDEMA. THE DIFFERENTIAL ALSO INCLUDES A COMBINATION OF PULMONARY ALVEOLAR EDEMA AND PULMONARY INTERSTITIAL EDEMA, 3. SMALL BILATERAL PLEURAL EFFUSIONS. 4. GYNECOMASTIA. 5. CORONARY ARTERY DISEASE
[2017-04-24] MEDS: Sevelamer TAB* 800 MG PO SCH ×3 (08:41→17:56)
[2017-04-24] MEDS: Docusate CAP* 100 MG PO SCH (08:42)
[2017-04-24] MEDS: Aspirin EC Low Dose* 81 MG TAB.EC PO SCH (08:42)
--- NOTE | 2017-04-24 11:04 | PN ---
Subjective Date of Service: 04/24/17 Interval History: Pt c/o chest congestion, like he feels when he needs dialysis Objective Active Medications: Acetaminophen (Tylenol Tab*) 650 mg PO Q4H PRN PRN Reason: FEVER/PAIN Hydrocodone Bitart/Acetaminophen ([place] 5-325 Tab*) 1 tab PO Q4H PRN PRN Reason: PAIN Last Admin: 04/24/17 10:16 Dose: 1 tab Aspirin (Aspirin Ec Low Dose*) 81 mg PO QAM [facility] Last Admin: 04/24/17 08:42 Dose: 81 mg Atorvastatin Calcium (Lipitor*) 5 mg PO 1700 [facility] Dextrose (D50w Syringe 50 Ml*) 12.5 gm IV PUSH .FOR FS < 60 - SS PRN PRN Reason: FS < 60 Docusate Sodium (Colace Cap*) 100 mg PO QAM [facility] Last Admin: 04/24/17 08:42 Dose: 100 mg Gabapentin (Neurontin Cap(*)) 100 mg PO BEDTIME [facility] Last Admin: 04/23/17 20:46 Dose: 100 mg Heparin Sodium (Porcine) (Heparin Vial(*)) 5,000 units SUBCUT Q8HR [facility] Last Admin: 04/24/17 05:49 Dose: 5,000 units Insulin Human Lispro (Humalog*) 0 - 10 units SUBCUT AC [facility] PRN Reason: Protocol Last Admin: 04/24/17 07:18 Dose: Not Given Sevelamer Carbonate (Renvela Tab*) 1,600 mg PO TID WITH MEALS [facility] Last Admin: 04/24/17 08:41 Dose: 1,600 mg Vital Signs - 8 hr 04/24/17 04/24/17 04/24/17 04:14 06:15 06:19 Pulse Rate 83 Respiratory 17 16 Rate Blood Pressure 144/69 (mmHg) O2 Sat by Pulse Oximetry 04/24/17 04/24/17 04/24/17 08:00 08:23 10:16 Pulse Rate 81 Respiratory 16 16 18 Rate Blood Pressure 143/75 (mmHg) O2 Sat by Pulse 99 99 Oximetry Oxygen Devices in Use Now: Nasal Cannula Appearance: 52 yo M in nAD, AAOx3 Eyes: No Scleral Icterus, PERRLA Ears/Nose/Mouth/Throat: NL Teeth, Lips, Gums, Mucous Membranes Moist Neck: NL Appearance and Movements; NL JVP, Trachea Midline Respiratory: Symmetrical Chest Expansion and Respiratory Effort, - - crackles at b/l bases Cardiovascular: NL Sounds; No Murmurs; No JVD, RRR Abdominal: NL Sounds; No Tenderness; No Distention Lymphatic: No Cervical Adenopathy Extremities: No Edema, No Clubbing, Cyanosis Skin: No Nodules or Sclerosis, - - R. TMA-stump healed. left foot necrotic, s/p amputation of toes 2-5 Neurological: Alert and Oriented x 3, NL Muscle Strength and Tone Result Diagrams: 04/24/17 05:13 04/24/17 05:13 Assess/Plan/Problems-Billing Assessment: 52 yo M h/o HTN, DM2, ESRD(on HD Tues/[place]/Sat), s/p TMA on R and left 2nd-5th amputation presents with necrotic left foot for scheduled TMA and desats when prepared for surgery. - Patient Problems (1) Hypoxemia Comment: CT shows pneumonia vs pulm /edema. Pt 's symptoms less likley appear to be related to an infection. I suspect he was just 2 days after dialysis and needed one earlier. For now will continue antibiotics and dialysis. CRP and procalcitonin will be ordered. (2) ESRD (end stage renal disease) Comment: HD today (3) Diabetes Comment: Cont ISS, at home diet controlled. (4) Macrocytic anemia Comment: Chronic anemia, worse than baseline. ? hemodilution, no symptoms of bleeding (5) DVT prophylaxis Comment: HSQ Status and Disposition: inpatient
[2017-04-24] MEDS ORDERED: Epoetin Alfa* 10,000 UNITS/ML VIAL IV ONE (13:00)
[2017-04-24] MEDS ORDERED: Atorvastatin* 10 MG TAB PO SCH (17:00)
[2017-04-24] MEDS: Omeprazole CAP* 20 MG PO SCH (21:58)
[2017-04-24] MEDS: Gabapentin CAP(*) 100 MG PO SCH (21:58)
--- NOTE | 2017-04-24 22:24 | CONS ---
GASTROENTEROLOGY CONSULTATION REPORT: DATE OF CONSULT: 04/24/17 HOSPITAL PROVIDER: Dr. Philly Miller. PRIMARY CARE PROVIDER: None. Formerly Dr. Garry Glasgow, who has retired. REASON FOR CONSULT: Anemia, occult blood-positive stool. HISTORY OF PRESENT ILLNESS: Mr. Singletary is a 52-year-old gentleman with a past medical history of insulin-dependent diabetes mellitus, recently diagnosed end- stage renal disease, on hemodialysis, hypertension, mitral valve insufficiency, osteomyelitis of his left foot and chronic anemia who presented yesterday for an elective surgery to his left foot due to chronic wound infection. He was placed under IV sedation and given 100 mcg of fentanyl by the anesthesiologist and the patient began complaining of chest heaviness as if his "lungs were filling up with fluid". He was also noted to have some decreased oxygen saturations to 68% to 70% without O2 per nasal cannula. The anesthesiologist made the decision to cancel the procedure. He was subsequently sent to the emergency room for further evaluation. He was admitted for treatment of pneumonia vs pulmonary edema. Antibiotics were initiated. Gastroenterology was consulted today for his history of anemia and occult blood-positive stool. His hemoglobin was 6.6 today. He denies any melena or hematochezia. He was recently diagnosed with end-stage renal disease in January and placed on dialysis that he receives on Tuesdays, , and Saturdays. He was seen in Dr. Javed's office on 04/20/17 and was evaluated and scheduled for an endoscopy and colonoscopy on 05/01/17. He admits to regular bowel movements. Occasionally, he will have loose stool depending on what he eats. He does admit to some intermittent heartburn symptoms, denies dysphagia. Weight has been relatively stable. No known family history of gastrointestinal malignancies. He has not had previous endoscopies and colonoscopies. Denies NSAID use and not on anticoagulants. PAST MEDICAL HISTORY: Insulin-dependent diabetes mellitus; morbid obesity; end- stage renal disease, on hemodialysis; anemia; osteomyelitis; gout; mitral valve insufficiency; and hypertension. PAST SURGICAL HISTORY: Left 4th and 5th toe amputations. Right great toe amputation. Umbilical hernia repair at age 2. Right internal jugular dialysis line. Status post ORIF of the left ankle. HOME MEDICATIONS: 1. Sevelamer. 2. Colace. 3. Aspirin. 4. Tylenol. 5. [place]. ALLERGIES: No known drug allergies. FAMILY HISTORY: Father in his 60s due to an [place]. Maternal grandfather due to an [place] at 75. Mother with a history of liver cancer and paternal grandmother with diabetes and in her 90s. SOCIAL HISTORY: Denies any previous tobacco, alcohol, or illicit drug use. He lives with his father. REVIEW OF SYSTEMS: Review of systems on a 14-point scale have been reviewed. All pertinent positives and negatives have been noted above in the HPI. PHYSICAL EXAM: Vital Signs: Temperature 99.2, pulse 99, respirations 18, O2 saturation 98% on room air, blood pressure 170/73. Generally, the patient is alert and oriented x3, in no acute distress, answering questions appropriately. HEENT: Anicteric sclerae bilaterally. Normocephalic, atraumatic. Cardiovascular Exam: Regular rate and rhythm. Pulmonary Exam: Clear to auscultation bilaterally. Abdominal Exam: Obese, soft, nontender. Positive bowel sounds. No rebound, guarding, or rigidity. Extremities: Mild bilateral lower extremity edema. No clubbing or cyanosis. Neurological: No gross focal deficits. DIAGNOSTIC STUDIES/LAB DATA: WBC is 12.9, hemoglobin 6.6, hematocrit 20, platelets 398. Sodium 134, potassium 5.4, chloride 97, CO2 23, anion gap 14, BUN 49, creatinine 7.64, glucose 92, calcium 8.9. CRP 25.21, and procalcitonin 15.2. ASSESSMENT AND PLAN: Mr. Singletary is a pleasant 52-year-old gentleman with morbid obesity, insulin-dependent diabetes mellitus, end-stage renal disease, on hemodialysis who presented with complaints of chest tightness after receiving 100 mcg of fentanyl during an elective left wound surgical procedure. Upon admission, the patient was treated for possible pulmonary edema versus pneumonia. He was started on antibiotics. He admits to feeling well today and is without complaints. Gastroenterology was consulted today for evaluation of his anemia of 6.6 and occult blood-positive stool. His anemia could be related to his renal disease vs colorectal carcinoma. He currently denies any active gastrointestinal bleeding. He was seen in our office by Dr. Javed on and is currently scheduled for an outpatient endoscopy and colonoscopy on . Given the patient's hemodynamic stability, lack of gastrointestinal bleeding and chronic anemia, we will continue with current plan of performing the endoscopy and colonoscopy on 05/01/17 as an outpatient. The patient is in agreement with this plan as well. We will continue to monitor the patient's hemoglobin while in the hospital and signs for GI bleeding. We will also update Dr. Javed in regards to the patient's hospital admission. Case was discussed with Dr. Miller. Thank you, Dr. Philly Miller, for allowing us to participate in the care of your patient. If you should have any further questions or concerns, please do not hesitate to contact us. [id number]/[facility] #: [id number] MTDD
[2017-04-25] MEDS: HYDROcodone/ACETAMIN 5-325 MG* 1 TAB PO PRN ×2 (04:47→10:07)
[2017-04-25] MEDS: Heparin VIAL(*) 5000 UNITS/ML VIAL (FIVE THOUSAND) SUBCUT SCH ×2 (06:03→15:54)
[2017-04-25 08:01] LABS: ABS Basophils 0.1 10^3/ul (0-0.2); ABS Eosinophils 0.3 10^3/ul (0-0.6); ABS Lymphocytes 1.4 10^3/ul (1.0-4.8); ABS Neutrophils 7.1 10^3/ul (1.5-7.7); ABS Nucleated RBC 0 10^3/ul; Eosinophil % 2.9 % (0-6); Hematocrit 20 % (42-52); Hemoglobin 6.9 g/dl (14.0-18.0); Lymphocyte % 14.1 % (25-47); Mean Corpuscular HGB Conc 34 g/dl (31-36); Mean Corpuscular Hemoglobin 34 pg (27-31); Mean Corpuscular Volume 99 fL (80-94); Mean Platelet Volume 7 um3 (7.4-10.4); Nucleated Red Blood Cells % 0; Platelet Count 412 10^3/ul (150-450); Red Blood Count 2.03 10^6/ul (4.0-5.4); Red Cell Distribution Width 18 % (10.5-15); White Blood Count 9.9 10^3/ul (3.5-10.8)
[2017-04-25] MEDS: Insulin LISPRO* 1 UNITS UNIT SUBCUT SCH ×2 (08:16→11:49)
[2017-04-25 08:21] LABS: EGFR Non-African American 10.3 (>60)
[2017-04-25] MEDS: Sevelamer TAB* 800 MG PO SCH ×2 (09:03→13:14)
[2017-04-25] MEDS: Docusate CAP* 100 MG PO SCH (10:07)
[2017-04-25] MEDS: Omeprazole CAP* 20 MG PO SCH (10:07)
[2017-04-25] MEDS: Aspirin EC Low Dose* 81 MG TAB.EC PO SCH (10:07)
[2017-04-25 11:48] VITALS: BP 156/82
[2017-04-25] MEDS ORDERED: Epoetin Alfa* 10,000 UNITS/ML VIAL IV ONE (15:00)
--- NOTE | 2017-04-26 12:47 | DS ---
CC: Dr. Johnson; Dr. Javed; Dr. Louis from Orthopedic Surgery; Dr. Meier DISCHARGE SUMMARY: DATE OF ADMISSION: 04/23/17 DATE OF DISCHARGE: 04/25/17 PRIMARY CARE PROVIDER: Dr. Johnson. DISCHARGE DIAGNOSES: 1. Hypoxemia due to community-acquired pneumonia. 2. Dry gangrene of the postsurgical site of the left foot. 3. Normocytic anemia and the patient with recent history of heme-positive stools. SECONDARY DIAGNOSES: 1. History of hypertension. 2. History of diet controlled diabetes. 3. History of osteomyelitis of the left foot, status post resection of toes #2 to 5 on the left and TMA foot amputation remotely on the right side. 4. History of chronic kidney disease. 5. History of end-stage renal disease, on hemodialysis. 6. History of anemia, which is normocytic, iron deficient with heme-positive stools documented withi n the past couple of weeks. The patient is under the care of Dr. Javed. He is scheduled for upper endoscopy and colonoscopy on 05/01/17. 7. History of gout. 8. History of mitral valve insufficiency. MEDICATIONS AT DISCHARGE: Include: 1. Sevelamer 1600 mg 3 times a day. 2. Colace 100 mg daily as needed. 3. Tylenol on a p.r.n. basis. 4. [place] on a p.r.n. basis. 5. Azithromycin 250 mg p.o. daily for 3 days total. 6. Cefdinir 300 mg every other day postdialysis on dialysis days for a total of 4 doses. 7. Omeprazole 20 mg twice a day. The patient's aspirin was discontinued due to anemia and heme-positive stools. LABORATORY DATA AND STUDIES PERFORMED DURING THE HOSPITAL STAY: Included: Procalcitonin level was 15. Sodium of 132, potassium 4.4, chloride 98, carbon dioxide 31, BUN 34, cr eatinine 5.81. White blood cell count of 9.9, hemoglobin of 6.9, hematocrit of 20, and platelets of 412. Urinalysis showed +3 protein, +[address] obtained on 04/23/17, impression: "Left lower lobe consolidation with diffuse patchy airspa ce disease also. Additionally, there is interlobular septal thickening with an apical predominance. This apparently suggest recommendation of both pneumonic consolidation and pulmonary edema and pulmo nary interstitial edema. Small bilateral pleural effusions. Gynecomastia. Coronary artery disease." HOSPITALIZATION COURSE: Mr. Singletary is a patient with end-stage renal disease whose dialysis days a re Tuesdays, , and Saturdays. The patient was scheduled for partial foot amputation on the left by Dr. Louis on 04/23/17. He was noted to be hypoxemic while evaluated by anesthesievita tabor on the day of surgery. CT of the chest showed pulmonary infiltrates and interstitial edema. It appears that it is most likely related to the patient needing dialysis. The patient was scheduled fo r surgery prior to his dialysis and after his weekend dialysis break. The patient was admitted to [facility], treated with antibiotics and dialyzed. He did well. His hypoxemia resolved as well as l eukocytosis. The patient was noted to have normocytic anemia and as per discussion with Dr. Johnson, the patient's legal file clerk, the patient has a history of heme-positive stools and in fact was evaluat ed by Dr. Javed on 04/20/17 as outpatient and scheduled for an outpatient endoscopy and colonoscopy on 05/01/17. I asked Dr. Meier from Gastroenterology to weigh in. Dr. Meier stated that since patient's hemoglobin had been stable, there is no reason for emergent procedure and the patient is okay to go home and undergo the procedure on 05/01/17 as scheduled. The patient's aspirin was held d ue to that and omeprazole was started. At this point, the patient still has necrotic tip of his left foot and I believe Dr. Louis is planni perla JERNIGAN in the near future. Unfortunately, until the patient's anemia is more controlled, I do not th ink he would be a great candidate for surgery. As per discussion with Dr. Johnson, if the patient nee ds to be transfused, his possibility or candidacy for renal transplant may be problematic. On the day of discharge, the patient is comfortable, breathing on room air. His oxygen saturation is 94% to 92%. He will be evaluated prior to his discharge with ambulatory oxygen saturation. At discharge, the patient is recommended to follow up with Dr. Johnson and with dialysis. He is recommended to follow up with Dr. Javed for a scheduled endoscopy as mentioned above. The patient is also recommended to follow up with Dr. Louis, his orthopedic surgeon. PHYSICAL EXAMINATION: Blood pressure of 156/82, heart rate of 62 and regular, respiratory rate 18, o xygen saturation 92% on room air, temperature 98.7. General: The patient is a very pleasant 52-year- old male who is not in acute distress. Alert, awake, and oriented x3. HEENT: Head: Atraumatic, nor mocephalic. Eyes: Pupils are equal, reactive to light and accommodation. Oropharynx clear. Mucosa moist. Neck: Supple. No JVD. No bruits bilaterally. Cardiovascular: Regular rate and rhythm. N o murmur. Respiratory: Crackles at bilateral bases, otherwise clear. Abdomen: Soft, nontender. B owel sounds are present in all 4 quadrants. Extremities: There is trace left ankle edema. Pulses ar e +2 bilaterally. There is no clubbing or cyanosis. The patient is status post right foot TMA amput ation remotely with stump, healed well. The left tip of the foot is necrotic in the area, status pos t amputation of toes 2 to 5. The first toe appears to be intact. There is no evidence of cellulitis. There is dry gangrene present. Neuro Evaluation: Cranial nerves II through XII grossly intact. M otor strength is 5/5 bilaterally. Please note that this is a short summary of the patient's hospitalization. Please refer to further edical records for details. TIME SPENT: Approximately 45 minutes was spent on the patient's discharge. [id number]/[facility] #: [id number]
--- NOTE | 2017-04-26 13:27 | DS ---
DISCHARGE SUMMARY: ADDENDUM: Please also note that the patient had been using hydrocodone/ acetaminophen 5/325 mg 1 tablet every 6 hours p.r.n. pain. He is running out of his prescription, and according to [employer], his last 5-day supply of hydrocodone, he received on 04/08/17. He was given another prescription at discharge for supply of 20 tablets. [id number]/[facility] #: [id number] MTDD
== END 2017-04-25 16:50 | disposition home or self-care (01) | DRG 139 ==
LOC: AA 04-23 09:59 → INTOOBSV 04-23 09:59 → AA 04-23 10:00 → SSU 04-23 18:16 → OBSVTOIN 04-24 10:00
PROVIDERS: ADMIT Orthopaedic Surgery; ATTEND Internal Medicine
PROC: 5A1D70Z Performance of Urinary Filtration, Intermittent, Less than 6 Hours Per Day (ICD-10-PCS; principal; 2017-04-24)
PROC: 5A1D70Z Performance of Urinary Filtration, Intermittent, Less than 6 Hours Per Day (ICD-10-PCS; 2017-04-25)
DX: J18.9 Pneumonia, unspecified organism (principal); J96.01 Acute respiratory failure with hypoxia; I96 Gangrene, not elsewhere classified; E11.22 Type 2 diabetes mellitus with diabetic chronic kidney disease; E11.69 Type 2 diabetes mellitus with other specified complication; E66.01 Morbid (severe) obesity due to excess calories; I12.0 Hypertensive chronic kidney disease with stage 5 chronic kidney disease or end stage renal disease; M86.672 Other chronic osteomyelitis, left ankle and foot; N18.6 End stage renal disease; E11.52 Type 2 diabetes mellitus with diabetic peripheral angiopathy with gangrene; M10.9 Gout, unspecified; F32.9 Major depressive disorder, single episode, unspecified; I34.0 Nonrheumatic mitral (valve) insufficiency; D53.9 Nutritional anemia, unspecified; D50.9 Iron deficiency anemia, unspecified; I25.10 Atherosclerotic heart disease of native coronary artery without angina pectoris; Z89.422 Acquired absence of other left toe(s); Z89.421 Acquired absence of other right toe(s); Z82.49 Family history of ischemic heart disease and other diseases of the circulatory system; Z83.3 Family history of diabetes mellitus; Z80.0 Family history of malignant neoplasm of digestive organs; Z68.36 Body mass index [BMI] 36.0-36.9, adult; Z99.2 Dependence on renal dialysis
CPT/HCPCS: 36415; 71045; 71250; 80048; 81003; 81015; 84145; 84484; 85025; 85610; 86140; 86850; 86900; 86901; 90935; 93005; 94760; A9270-GY; G0257; G0378; J0690; J0885; J1644; J2704; J3010

== ENCOUNTER 2017-05-07 07:45 | Inpatient (IN) | payer BC, MEDICARE ==
[2017-05-07] MEDS ORDERED: Nitroglycerin TAB 0.4 MG* 0.4 MG TAB SL ONE (07:56)
[2017-05-07] MEDS ORDERED: Aspirin TAB* 325 MG PO ONE (07:56)
[2017-05-07 08:44] LABS: EGFR Non-African American 8.8 (>60)
--- NOTE | 2017-05-07 08:51 | RAD ---
INDICATION: Chest pain and shortness of breath COMPARISON: Most recent comparison chest x-rays dated April 23, 2017 TECHNIQUE: PA and lateral views of the chest were obtained. FINDINGS: Again seen is a right internal jugular vein Bard HemoSplit tunneled dialysis catheter with the tips terminating at the junction of the subclavian vein and superior vena cava and upper superior vena cava. The heart and mediastinum are normal in size and contour. The lungs are grossly clear. There is no evidence of large pleural effusion. Visualized bones are normal for the patient's age. There is no radiographic evidence of free air beneath the diaphragm IMPRESSION: No radiographic evidence of acute cardiopulmonary disease.
[2017-05-07] MEDS ORDERED: Iodixanol* (CONTRAST) 320 MG/ML 100 ML SDV IV ONE (09:09)
[2017-05-07 09:13] LABS: Hematocrit 22 % (42-52); Hemoglobin 6.9 g/dl (14.0-18.0); Mean Corpuscular HGB Conc 32 g/dl (31-36); Mean Corpuscular Hemoglobin 33 pg (27-31); Mean Corpuscular Volume 102 fL (80-94); Mean Platelet Volume 8 um3 (7.4-10.4); Platelet Count 477 10^3/ul (150-450); Red Blood Count 2.12 10^6/ul (4.0-5.4); Red Cell Distribution Width 17 % (10.5-15); White Blood Count 17.8 10^3/ul (3.5-10.8)
[2017-05-07 09:16] LABS: Monocytes % 7 % (0-7)
--- NOTE | 2017-05-07 09:39 | RAD ---
HISTORY: Shortness of breath, hypoxia COMPARISONS: April 24, 2017 TECHNIQUE: Multiple contiguous axial CT scans of the chest were obtained after the administration of nonionic intravenous contrast, timed to the pulmonary arterial phase of contrast enhancement.. Coronal and sagittal multiplanar reformations are also submitted for review. FINDINGS: Evaluation is limited secondary to suboptimal contrast opacification. The attenuation of the main pulmonary artery is between 200-250 Hounsfield units which is of diagnostic, but borderline, quality for the detection of pulmonary embolism. Evaluation is also limited by patient breathing motion artifact. NECK AND THYROID: The lower neck and thyroid are unremarkable. CHEST WALL: There is no lower cervical, axillary, or supraclavicular lymphadenopathy by size criteria. There is bilateral gynecomastia. HEART AND PERICARDIUM: The heart is unremarkable. AORTA AND PULMONARY VASCULATURE: There is no pulmonary arterial filling defect to suggest pulmonary embolism. There is no linear filling defect within the aorta to suggest aortic dissection. The main pulmonary artery is slightly larger than the aorta at the same level. MEDIASTINUM: There is no mediastinal lymphadenopathy by size criteria. DESMOND: There is no hilar lymphadenopathy by size criteria. AIRWAY AND ESOPHAGUS: The airway is unremarkable, without endobronchial filling defect. The esophagus is grossly normal. LUNG PARENCHYMA: Again noted is multifocal groundglass opacification throughout both lungs. This has improved when compared to the previous examination. Again noted is interlobular septal thickening with an apical predominance. PLEURA: There are small bilateral pleural effusions. UPPER ABDOMEN: The upper abdomen is unremarkable. BONES AND SOFT TISSUES: Degenerative changes are noted of the spine OTHER: None. IMPRESSION: 1. WITHIN THE LIMITATIONS OF THE STUDY, THERE ARE NO PULMONARY ARTERIAL FILLING DEFECTS TO SUGGEST PULMONARY EMBOLISM. 2. THE MAIN PULMONARY ARTERY IS ENLARGED COMPARED TO THE AORTA SUGGESTIVE OF PULMONARY ARTERIAL HYPERTENSION. 3. PULMONARY INTERSTITIAL EDEMA. 4. PERSISTENT MULTIFOCAL AIRSPACE DISEASE, IMPROVED FROM THE PREVIOUS EXAMINATION. 5. SMALL BILATERAL PLEURAL EFFUSIONS.
[2017-05-07] MEDS ORDERED: Sodium Polystyrene ORAL.SOL* 15 GM/60 ML BTL PO ONE (10:35)
[2017-05-07] MEDS ORDERED: cefTRIAXone(*) 1 GM in NS 0.9% 50 ML* 50 ML IVPB ONE (11:00)
[2017-05-07] MEDS ORDERED: Omeprazole CAP* 20 MG PO SCH (11:00)
[2017-05-07] MEDS ORDERED: Ranitidine TAB (NF) 150 MG TAB PO SCH (11:00)
[2017-05-07 11:28] LABS: Immature Retic Fraction 0.65; RBC Retic Count 2.12 10^6/ul (4.6-6.2)
[2017-05-07 11:33] LABS: Corrected Retic Count 1.7 % (0.5-1.5); Hematocrit for Retic CNT 22 % (42-52)
[2017-05-07 11:36] LABS: EGFR Non-African American 8.9 (>60)
[2017-05-07] MEDS ORDERED: Dextrose 50% Syringe 50 ML* 25 GM/50 ML SYRINGE IV PUSH PRN (11:57)
[2017-05-07] MEDS: Famotidine TAB* 20 MG PO SCH (12:10)
[2017-05-07] MEDS: amLODIPine TAB* 5 MG PO SCH (12:10)
[2017-05-07] MEDS: Omeprazole CAP* 20 MG PO SCH ×2 (12:10→21:51)
[2017-05-07] MEDS: Sevelamer TAB* 800 MG PO SCH ×2 (12:10→17:49)
[2017-05-07] MEDS ORDERED: Insulin LISPRO* 1 UNITS UNIT SUBCUT ONE (12:39)
[2017-05-07] MEDS ORDERED: Epoetin Alfa* 10,000 UNITS/ML VIAL IV ONE (14:00)
--- NOTE | 2017-05-07 14:27 | HP ---
HISTORY AND PHYSICAL: DATE OF ADMISSION: 05/07/17. ADMITTING PROVIDER: Chema Dukes MD. PRIMARY CARE PROVIDER: Does not have one, is trying to establish with [facility]. PRIMARY HEAVY EQUIPMENT SALES MANAGER: Dr. Johnson. PRIMARY ORTHOPEDIC SURGEON: Dr. Louis. CHIEF COMPLAINT: Shortness of breath upon waking at 6:00 a.m. HISTORY OF PRESENT ILLNESS: Mr. Sreekanth Singletary is a 52-year-old male with past medical history of non-insulin dependent diabetes, hypertension, hyperlipidemia, gout, end-stage renal disease hemodialysis Sunday, and Sunday since January 2017, osteomyelitis, is now status post right transmetatarsal amputation and chronic left foot wounds status post amputation of second through fifth toes, but aborted surgery with Dr. Louis this month after found to be hypoxic in preop, chronic anemia with recent EGD showing clean based gastric ulcer on 05/01/[address] Javed, was reportedly hypoxic to the mid 80s in the emergency room. He is currently on OxyMask at 5, satting in the mid 90s. He denies any fevers, chills, nausea, vomiting, does have a sensation of chest fullness in his upper sternum similar to when he was admitted in early April for his surgery that was aborted and felt improved with hemodialysis. He was referred to hospitalist service for admission. He is noted to have finished a course of cefdinir. Two days prior to admission, he got hemodialysis with approximately 4 liters off on that Sunday as well with weight being around 251. He is unable to tell me his dry weight, overall he has lost about 150 pounds unintentionally over the last 6 months ever since starting hemodialysis. The patient states he is "trying to cough," but really unable, nonproductive, has some chronic left foot pains for which he takes Tylenol and has run out of his home Brent. Labs are now resulting a hemoglobin of 6.9, potassium 6.2 and white count of 17.8, BNP is pending. He had troponin of 0.03 initially, 22% lymphocytes. He had a CT chest angiogram which showed no evidence of pulmonary embolism but with pulmonary interstitial edema, small bilateral pleural effusions, multifocal airspace disease bilaterally though improving since prior study. Also pulmonary artery enlargement with concern for possible pulmonary arterial hypertension. The patient has a history of echocardiogram in January 2017 which showed ejection fraction of 50% to 55%, moderate mitral valve regurgitation, mild aortic stenosis and moderate pulmonary hypertension. Of note, patient at that admission between 04/23/17 and 04/25/17 had been diagnosed with community-acquired pneumonia for which the cefdinir was prescribed on discharge. He had heme positive stools at that time and a procalcitonin of 15. PAST MEDICAL HISTORY: 1. Hypertension. 2. Non-insulin dependent diabetes mellitus. 3. Osteomyelitis of the left foot status post amputation of toes two to five with now necrotic wound with aborted surgery with Dr. Louis until hemoglobin more stable, status post transmetatarsal amputation of the right foot. 4. Endstage renal disease on hemodialysis Sunday, and Sunday. 5. Gout. 6. Moderate mitral valve regurgitation. 7. Moderate pulmonary hypertension. MEDICATIONS: Include: 1. Amlodipine 10 mg daily. 2. Simvastatin 10 mg q.h.s. 3. Zantac 300 mg p.o. daily. 4. Tylenol 650 mg p.o. q. 6 hours p.r.n. 5. Sevelamer 1600 mg p.o. t.i.d. 6. Omeprazole 20 mg p.o. b.i.d. The patient has run out of his Brent 5/325 mg daily. ALLERGIES: No known drug allergies. FAMILY HISTORY: Mother of liver cancer around age 70. Dad had a heart attack. Paternal grandmother had diabetes. Paternal grandfather had bone cancer and bad Alzheimer's disease. Sister has history of Guillian-Plymouth syndrome. SOCIAL HISTORY: The patient works at [employer]. He was occasional drinker, no longer, never smoker. His medical surrogate his daughter, Zahida Singletary of [place], [place], . He desires to be a full code. REVIEW OF SYSTEMS: A complete 14-point review of systems negative except as per HPI. PHYSICAL EXAMINATION GENERAL APPEARANCE: No acute distress, but wearing a OxyMask. VITAL SIGNS: Blood pressure 182/89 initially, currently 163/84, satting as low as 86%, respiratory rate between 18 and 28, heart rate 86 to 91, temperature 97.1. HEENT: Normocephalic, atraumatic. Pupils are equal, round, and reactive to light. Extraocular motions intact. NECK: Supple. No cervical lymphadenopathy. CARDIOVASCULAR: Regular rate and rhythm. No murmurs, rubs or gallops. ABDOMEN: Soft, nontender, slightly obese. No Barrera's. No rebound or guarding. EXTREMITIES: Trace bilateral edema. Left leg in boot, has necrotic edge to the margin of the previously amputated second through fifth toes, slight malodor , area necrosis also extends up to the first toe. There is slight erythema of this toe. There is some pain. His right toe is status post transmetatarsal amputation with slight area of erythema in the right heel, which he states is chronic, does not allow any palpitation as it is chronically very tender, stemming from accident as a child. NEURO: Moving all extremities. Cranial nerves II through XII intact. LABORATORY DATA: White count 17.8, hemoglobin 6.9, hematocrit 22, MCV 102, platelets 477, lymphocytes 22%, neutrophils 68%. Sodium 136, potassium 6.2, chloride 97, carbon dioxide 28, BUN 43, creatinine 6.63, glucose 117, lactic acid 1.5. AST 14, ALT 10, alk phos 103, troponin 0.03. IMAGING: Chest x-ray was without evidence of acute cardiopulmonary disease. CT chest angiogram showed no evidence of pulmonary embolism within the limitations of the study. Main pulmonary artery was enlarged compared to aorta suggestive of pulmonary arterial hypertension, pulmonary interstitial edema, persistent multifocal airspace disease improved from the previous examination and small bilateral pleural effusions. EKGs demonstrated normal sinus rhythm, T-wave inversions in aVL and 1, unchanged from prior. ASSESSMENT AND PLAN: Sreekanth Singletary is a 52-year-old male with past medical history of end-stage renal disease, necrotic left foot wound, recent gastric ulcer and chronic anemia presenting with acute shortness of breath and hypoxia to 86 in the emergency room. Evidence of some volume overload on CT chest, lower extremity edema, with slight rales at bases and was hyperkalemic to 6.2. Dr. Johnson was consulted for need for hemodialysis today. Also gave him Kayexalate in the meantime. He has just this chronic left wound and leukocytosis at 17.8, starting him on ceftriaxone for now and getting a procalcitonin. We will try to get a wound culture of the left foot. Dr. Louis has not agreed to perform surgery until his anemia is improved. He has macrocytosis. His B12 and folate were checked in January. We are trying to avoid blood transfusions given that it would impact his renal transplant eligibility, consideration to add a reticulocyte count to study of an infection , also add a stool guaiac and continue for his gastric ulcer his PPI and H2 inhibitor with pulmonary changes as needed. For his hyperlipidemia, we will continue his simvastatin. For hypertension, we will continue his amlodipine 10 mg. For his end-stage renal disease, also continue his sevelamer 800 mg t.i.d. He is a full code. He can eat heart healthy end-stage renal diet and a carbohydrate consistent as well. He is being admitted to inpatient status for his chest pressure that sounds like volume overload, but we will continue the troponin as ordered by the emergency room and they can put him on telemetry. [id number]/[facility] #: [id number] MTDD
[2017-05-07] MEDS: Insulin LISPRO* 1 UNITS UNIT SUBCUT SCH ×2 (17:31→21:48)
[2017-05-07] MEDS: Atorvastatin* 10 MG TAB PO SCH (17:50)
[2017-05-07] MEDS: Acetaminophen TAB* 325 MG PO PRN (19:16)
[2017-05-08] MEDS ORDERED: ALPRAZolam TAB* 0.25 MG PO ONE (00:27)
[2017-05-08] MEDS: Acetaminophen TAB* 325 MG PO PRN ×4 (01:34→23:48)
[2017-05-08 06:42] LABS: ABS Basophils 0 10^3/ul (0-0.2); ABS Eosinophils 0.3 10^3/ul (0-0.6); ABS Lymphocytes 2.4 10^3/ul (1.0-4.8); ABS Monocytes 0.9 10^3/ul (0-0.8); ABS Neutrophils 5.7 10^3/ul (1.5-7.7); ABS Nucleated RBC 0 10^3/ul; Eosinophil % 3.3 % (0-6); Hematocrit 21 % (42-52); Hemoglobin 7.1 g/dl (14.0-18.0); Lymphocyte % 25.7 % (25-47); Mean Corpuscular HGB Conc 34 g/dl (31-36); Mean Corpuscular Hemoglobin 34 pg (27-31); Mean Corpuscular Volume 100 fL (80-94); Mean Platelet Volume 8 um3 (7.4-10.4); Nucleated Red Blood Cells % 0; Platelet Count 393 10^3/ul (150-450); Red Blood Count 2.11 10^6/ul (4.0-5.4); Red Cell Distribution Width 17 % (10.5-15); White Blood Count 9.4 10^3/ul (3.5-10.8)
[2017-05-08 07:09] LABS: EGFR Non-African American 10.2 (>60)
[2017-05-08] MEDS: Insulin LISPRO* 1 UNITS UNIT SUBCUT SCH ×4 (07:58→21:39)
[2017-05-08] MEDS: amLODIPine TAB* 5 MG PO SCH (08:26)
[2017-05-08] MEDS: Omeprazole CAP* 20 MG PO SCH ×2 (08:26→20:38)
[2017-05-08] MEDS: Famotidine TAB* 20 MG PO SCH (08:26)
[2017-05-08] MEDS: Sevelamer TAB* 800 MG PO SCH ×3 (08:26→18:32)
[2017-05-08] MEDS: cefTRIAXone(*) 1 GM in NS 0.9% 50 ML* 50 ML IVPB SCH (11:38)
--- NOTE | 2017-05-08 14:33 | ED ---
Ze Reilly Angela, scribed for Ellis Elise MD on 05/07/17 at 0800 . Shortness of Breath - HPI Summary HPI Summary: This pt is a 52 y/o male presenting to [facility] via EMS for SOB since 06:00 this morning. Pt reports that when he does cough it is hard to cough. He notes he feels like he has fluid built up in his throat and feels pressure on the top of his chest. Pt states he sometimes sleeps on a recliner sometimes on a couch. Yesterday, he reports he felt great and this morning woke up with SOB. He did not eat anything out of the ordinary, no increased salt or sugar, he states he "watches what he eats." Denies fever. He does not use O2 at home. Pt was not given any treatments in the ambulance [employer]. Pt denies smoking. Denies hx of PE. PMHx: diabetes. Pt has been on dialysis since 2016 and is followed by Dr. Johnson. Pt has dialysis on ., ., and Sunday. The last time he went to dialysis was on Sunday. - History of Current Complaint Hx Obtained From: Patient Onset/Duration: Lasting Hours, Still Present Timing: Constant Current Severity: Moderate Dyspnea At: Rest Aggrevating Factors: Nothing Alleviating Factors: Nothing Associated Signs & Symptoms: Cough (Nonproductive) - Allergy/Home Medications Allergies/Adverse Reactions: Allergies Allergy/AdvReac Type Severity Reaction Status Date / Time No Known Allergies Allergy Verified 03/29/17 16:25 Home Medications: Home Medications Acetaminophen TAB* [Tylenol TAB*] 650 mg PO Q6H PRN 05/07/17 [History Confirmed 05/07/17] Omeprazole CAP* [Prilosec CAP* 20 MG] 20 mg PO BID 05/07/17 [History Confirmed 05/07/17] Ranitidine TAB (NF) [Zantac TAB (NF)] 300 mg PO DAILY WITH MEAL 05/07/17 [ History Confirmed 05/07/17] Simvastatin TAB(NF) [Zocor(NF)] 10 mg PO QPM 05/07/17 [History Confirmed ] amLODIPine TAB* [Norvasc 5 mg TAB*] 10 mg PO DAILY 05/07/17 [History Confirmed 05/07/17] PMH/Surg Hx/FS Hx/Imm Hx Endocrine/Hematology History: Reports: Hx Diabetes - DOES FINGER STICKS QOD DOESN'T NEED ANY MEDICATIONS, Hx Anemia - WAS TRANSUSED LAST HOSP Denies: Hx Anticoagulant Therapy, Hx Thyroid Disease Cardiovascular History: Reports: Hx Angina - "tightness", "like congestion", Hx Hypercholesterolemia, Hx Hypertension - WAS ON MEDICATION, NONE AT PRESENT BP STABLE, Other Cardiovascular Problems/Disorders - HIGH CHOLESTEROL Denies: Hx Congestive Heart Failure, Hx Coronary Artery Disease, Hx Deep Vein Thrombosis, Hx Myocardial Infarction, Hx Pacemaker/ICD, Hx Valvular Heart Disease Respiratory History: Reports: Hx Asthma - WAS IN HOSP FEB 2017, Hx Seasonal Allergies Denies: Hx Chronic Obstructive Pulmonary Disease (COPD), Hx Lung Cancer GI History: Denies: Hx Gall Bladder Disease, Hx Gastrointestinal Bleed, Hx Ulcer, Hx Urosepsis History: Reports: Hx Dialysis, Hx Renal Disease Denies: Hx Kidney Stones, Other Problems/Disorders - end stage renal disease Musculoskeletal History: Reports: Hx Arthritis - HANDS, Hx Gout, Other Musculoskeletal History - right toes amputated Sensory History: Reports: Hx Contacts or Glasses - GLASSES Denies: Hx Cataracts, Hx Glaucoma, Hx Hearing Aid Opthamlomology History: Reports: Hx Contacts or Glasses - GLASSES Denies: Hx Cataracts, Hx Glaucoma Neurological History: Denies: Hx Dementia, Hx Migraine, Hx Seizures, Hx Transient Ischemic Attacks (TIA) Psychiatric History: Reports: Hx Depression - DUE TO WIFES Denies: Hx Anxiety, Hx Attention Deficit Hyperactivity Disorder, Hx Eating Disorder, Hx Panic Disorder, Hx Post Traumatic Stress Disorder, Hx Inpatient Treatment, Hx Community Mental Health Tx, Hx Schizophrenia, Hx Bipolar Disorder , Hx Suicide Attempt, Hx of Violent Episodes Against Others, Hx Substance Abuse , Other Psychiatric Issues/Disorders - Surgical History Surgery Procedure, Year, and Place: left second toe amputation 2009. Left ankle ORIF. RIGHT GREAT TOE AMPUTATION 2012, ALL OTHER TOES AMPUTATED 12/2014. HERNIA A CHILD Hx Anesthesia Reactions: No Infectious Disease History: No Infectious Disease History: Reports: Hx Shingles - HAD 8 YEAS AGO Denies: Hx Clostridium Difficile, Hx Hepatitis, Hx Human Immunodeficiency Virus (HIV), Hx of Known/Suspected MRSA, Hx Tuberculosis, History Other Infectious Disease, Traveled Outside the [place] in Last 30 Days - Family History Known Family History: Positive: Hypertension - Social History Alcohol Use: None Hx Substance Use: No Substance Use Type: Reports: None Hx Tobacco Use: No Smoking Status (MU): Never Smoked Tobacco Have You Smoked in the Last Year: No Review of Systems Negative: Fever, Chills Negative: Erythema Negative: Sore Throat Positive: Chest Pain Positive: Shortness Of Breath, Cough Negative: Abdominal Pain, Vomiting, Nausea Negative: dysuria, hematuria Negative: Myalgia, Edema Negative: Rash Neurological: Other - NEG: dizziness All Other Systems Reviewed And Are Negative: Yes Physical Exam - Summary Physical Exam Summary: Constitutional: Well-developed, Obese, Alert. (-) Distressed Skin: Warm, Dry HENT: Normocephalic; Atraumatic Eyes: Conjunctiva normal Neck: Musculoskeletal ROM normal neck. (-) JVD, (-) Stridor, (-) Tracheal deviation Cardio: Rhythm regular, rate normal, Heart sounds normal; Intact distal pulses; The pedal pulses are 2+ and symmetric. Radial pulses are 2+ and symmetric. (-) Murmur Pulmonary/Chest wall: Effort normal. (-) Respiratory distress, (-) Wheezes, (-) Rales Abd: Soft, (-) Tenderness, (-) Distension, (-) Guarding, (-) Rebound Musculoskeletal: (-) Significant edema Lymph: (-) Cervical adenopathy Neuro: Alert, Oriented x3 Psych: Mood and affect Normal Triage Information Reviewed: Yes Vital Signs On Initial Exam: Initial Vitals Temp Pulse Resp BP Pulse Ox 97.1 F 91 18 182/89 96 05/07/17 07:46 05/07/17 07:46 05/07/17 07:46 05/07/17 07:46 05/07/17 07:46 Vital Signs Reviewed: Yes Diagnostics - Vital Signs Vital Signs Temp Pulse Resp BP Pulse Ox 05/07/17 07:46 97.1 F 91 18 182/89 96 - Laboratory Result Diagrams: 05/07/17 08:20 05/07/17 11:01 Lab Statement: Any lab studies that have been ordered have been reviewed, and results considered in the medical decision making process. - Radiology Chest XR Xray Interpretation: No Acute Changes - IMPRESSION: No radiographic evidence of acute cardiopulmonary disease. Dr. Elise has reviewed this radiology report. Radiology Interpretation Completed By: Radiologist - CT CTA chest CT Interpretation: Positive (See Comments) - IMPRESSION: 1. Within the limitations of the study, there are no pulmonary arterial filling defects to suggest pulmonary embolism. 2. The main pulmonary artery is enlarged compared to the aorta suggestive of pulmonary arterial hypertension. 3. Pulmonary interstitial edema. 4. Persistent multifocal airspace disease, improved from the previous examination. 5. Small bilateral pleural effusions. Dr. Elise has reviewed this radiology report. CT Interpretation Completed By: Radiologist - EKG 07:56 Cardiac Rate: NL EKG Rhythm: Sinus Rhythm - at 85 bpm EKG Interpretation: No STEMI. Re-Evaluation - Re-Evaluation First Eval Re-Evaluation Time: 09:05 Comment: There is no IV access yet and pt has not received his nitro. Pt is saturing at 88% on 4L of O2. Lungs are still clear. Short consideration for PE. Course/Dx - Course Course Of Treatment: In the ED course the pt was given nitroglycerin and aspirin. Blood work, EKG, and chest XR were obtained. Chest XR is negative. On re-eval, there is no IV access yet and pt has not received his nitro. Pt is saturing at 88% on 4L of O2. Lungs are still clear. Short consideration for PE. CTA chest obtained. CTA shows 1. Within the limitations of the study, there are no pulmonary arterial filling defects to suggest pulmonary embolism. 2. The main pulmonary artery is enlarged compared to the aorta suggestive of pulmonary arterial hypertension. 3. Pulmonary interstitial edema. 4. Persistent multifocal airspace disease, improved from the previous examination. 5. Small bilateral pleural effusions. I discussed pt care with shannan Mullins, who has agreed to admit the pt. - Diagnoses Provider Diagnoses: SOB (shortness of breath), Hypoxia, Chest pain, unspecified - Physician Notifications Discussed Care of Patient With: Chema Dukes Time Discussed With Above Provider: 09:12 Instructed by Provider To: Other - I discussed pt care with shannan Mullins, who has agreed to admit the pt. Discharge - Discharge Plan Condition: Stable Disposition: ADMITTED TO [facility] The documentation as recorded by the Ze peoples Angela accurately reflects the service I personally performed and the decisions made by , Ellis Elise MD.
--- NOTE | 2017-05-08 15:48 | PN ---
Subjective Date of Service: 05/08/17 Interval History: Pt now on RA. chest pressure resolved after first 30minutes of dialysis. Pain persists in left foot. Pt missed appointment scheduled for today to see Dr. Aziza Waters to evaluate for fistula placement. Objective Active Medications: Acetaminophen (Tylenol Tab*) 650 mg PO Q6H PRN PRN Reason: PAIN Last Admin: 05/08/17 15:39 Dose: 650 mg Amlodipine Besylate (Norvasc Tab*) 10 mg PO DAILY [facility] Last Admin: 05/08/17 08:26 Dose: 10 mg Atorvastatin Calcium (Lipitor*) 5 mg PO QPM [facility] Last Admin: 05/07/17 17:50 Dose: 5 mg Dextrose (D50w Syringe 50 Ml*) 12.5 gm IV PUSH .FOR FS < 60 - SS PRN PRN Reason: FS < 60 Famotidine (Pepcid Tab*) 20 mg PO DAILY [facility] Last Admin: 05/08/17 08:26 Dose: 20 mg Ceftriaxone Sodium 1 gm/ (Sodium Chloride) 50 mls @ 200 mls/hr IVPB Q24H [facility] Last Admin: 05/08/17 11:38 Dose: 200 mls/hr Insulin Human Lispro (Humalog*) 0 units SUBCUT ACHS [facility] PRN Reason: Protocol Last Admin: 05/08/17 11:40 Dose: Not Given Omeprazole (Prilosec Cap*) 20 mg PO BID [facility] Last Admin: 05/08/17 08:26 Dose: 20 mg Sevelamer Carbonate (Renvela Tab*) 1,600 mg PO TID WITH MEALS [facility] Last Admin: 05/08/17 12:05 Dose: 1,600 mg Vital Signs - 8 hr 05/08/17 05/08/17 05/08/17 07:51 07:58 11:21 Temperature 98.1 F 97.8 F Pulse Rate 72 74 Respiratory 20 20 16 Rate Blood Pressure 155/73 145/80 (mmHg) O2 Sat by Pulse 100 100 Oximetry Oxygen Devices in Use Now: None Appearance: NAD. Eyes: No Scleral Icterus, PERRLA Ears/Nose/Mouth/Throat: NL Teeth, Lips, Gums, Mucous Membranes Moist Respiratory: Symmetrical Chest Expansion and Respiratory Effort, Clear to Auscultation Cardiovascular: NL Sounds; No Murmurs; No JVD, RRR Skin: - - left foot just wrapped by wound care. no strikethrough. s/p 2-5th toe amputations Neurological: Alert and Oriented x 3, NL Muscle Strength and Tone Result Diagrams: 05/08/17 06:26 05/08/17 06:26 Additional Lab and Data: Laboratory Results - last 24 hr 05/07/17 05/07/17 05/07/17 16:47 17:00 21:45 WBC RBC Hgb Hct MCV MCH MCHC RDW Plt Count MPV Neut % (Auto) Lymph % (Auto) [place] % (Auto) Eos % (Auto) Baso % (Auto) Absolute Neuts (auto) Absolute Lymphs (auto) Absolute Monos (auto) Absolute Eos (auto) Absolute Basos (auto) Absolute Nucleated RBC Nucleated RBC % Sodium Potassium Chloride Carbon Dioxide Anion Gap BUN Creatinine Est GFR ( Amer) Est GFR (Non-Af Amer) BUN/Creatinine Ratio Glucose POC Glucose (mg/dL) 113 H 108 H Calcium Troponin I 0.04 H* 05/08/17 05/08/17 05/08/17 06:26 06:26 07:27 WBC 9.4 RBC 2.11 L Hgb 7.1 L Hct 21 L MCV 100 H MCH 34 H MCHC 34 RDW 17 H Plt Count 393 MPV 8 Neut % (Auto) 60.5 Lymph % (Auto) 25.7 [place] % (Auto) 10.0 H Eos % (Auto) 3.3 Baso % (Auto) 0.5 Absolute Neuts (auto) 5.7 Absolute Lymphs (auto) 2.4 Absolute Monos (auto) 0.9 H Absolute Eos (auto) 0.3 Absolute Basos (auto) 0 Absolute Nucleated RBC 0 Nucleated RBC % 0 Sodium 135 Potassium 4.7 Chloride 93 L Carbon Dioxide 32 Anion Gap 10 BUN 36 H Creatinine 5.86 H Est GFR ( Amer) 13.1 Est GFR (Non-Af Amer) 10.2 BUN/Creatinine Ratio 6.1 L Glucose 93 POC Glucose (mg/dL) 102 H Calcium 9.5 Troponin I 05/08/17 11:38 WBC RBC Hgb Hct MCV MCH MCHC RDW Plt Count MPV Neut % (Auto) Lymph % (Auto) [place] % (Auto) Eos % (Auto) Baso % (Auto) Absolute Neuts (auto) Absolute Lymphs (auto) Absolute Monos (auto) Absolute Eos (auto) Absolute Basos (auto) Absolute Nucleated RBC Nucleated RBC % Sodium Potassium Chloride Carbon Dioxide Anion Gap BUN Creatinine Est GFR ( Amer) Est GFR (Non-Af Amer) BUN/Creatinine Ratio Glucose POC Glucose (mg/dL) 124 H Calcium Troponin I Microbiology and Other Data: Microbiology 05/07/17 12:40 Skin and Soft Tissue MRSA/MSSA (PCR - Final Foot Left Mrsa Negative S.aureus Negative Gram Stain - Final Wound Culture - Preliminary Enterococcus Faecalis Assess/Plan/Problems-Billing Assessment: 52 yo male PMH ESRD, anemia with recent clean based gastric ulcer on PPI and H2B , DM, s/p right TMA and aborted left necrotic foot wound when hypoxic respiratory failure. Presents with hypoxic respiratory failure, hyperkalemia and volume overload improved with HD. Consults to Dr. Louis and ID. Entercoccous Faecalis again in the left foot. Leukocytosis improved on cftx. - Patient Problems (1) Acute respiratory failure with hypoxia Current Visit: Yes Status: Acute Code(s): J96.01 - ACUTE RESPIRATORY FAILURE WITH HYPOXIA SNOMED Code(s): 36111296 Comment: resolved with HD and 4L off. was 6L up per analytical tech. continue HD MWF while here. (2) Toe gangrene Current Visit: No Status: Acute Code(s): I96 - GANGRENE, NOT ELSEWHERE CLASSIFIED SNOMED Code(s): 355398645 Comment: Necrotic left foot across previous amputation and extending into 1st toe. Culture growing Enterococcus Faecalis (again). f/u sensistivites. Currently on ceftriaxone. f/u ID recs. Previous ostemyelitis. Needing amputation which was aborted this month. Dr. Louis consulted, called office, awaiting call back. pain control (3) Anemia Current Visit: No Status: Acute Code(s): D64.9 - ANEMIA, UNSPECIFIED SNOMED Code(s): 573680250 Comment: clean based gastric ulcer on outpatient EGD 05/01. continue PPI, H2 [place]. poor retic produciton index in setting of infection. also lost a bunch of weight in last year >100 lbs. consideration for bone marrow biopsy. avoiding further transfusions (did get in January) given would effect transplant candidacy (per Dr. Johnson) continue epogen. b12, folate okay in January. (4) ESRD (end stage renal disease) Current Visit: No Status: Acute Code(s): N18.6 - END STAGE RENAL DISEASE SNOMED Code(s): 19616780 Comment: HD MWF while inpatient. TRSa as outpatient. (5) Hypertension Current Visit: No Status: Acute Code(s): I10 - ESSENTIAL (PRIMARY) HYPERTENSION SNOMED Code(s): 93575621 Comment: Norvasc 10mg, may need second agent. (6) DM type 2 (diabetes mellitus, type 2) Current Visit: No Status: Chronic Priority: Medium Comment: continue SSI lispro, has not required. has lost a lot of weight (150 lbs over 6 months) (7) Chest pain Current Visit: No Status: Resolved Code(s): R07.9 - CHEST PAIN, UNSPECIFIED SNOMED Code(s): 49779183 Comment: troponins 0.03, 0.04, 0.04. ekg without e/o ischemia. resolved with HD, suspect 2/2 volume overload. Status and Disposition: medicine inpatient. Wanting ortho consultation, pt would benefit from amputation of left foot.
[2017-05-08] MEDS: Atorvastatin* 10 MG TAB PO SCH (18:32)
[2017-05-09] MEDS: oxyCODONE TAB* 5 MG TAB PO PRN ×2 (04:24→12:27)
[2017-05-09 06:47] LABS: ABS Basophils 0.1 10^3/ul (0-0.2); ABS Eosinophils 0.3 10^3/ul (0-0.6); ABS Lymphocytes 2.2 10^3/ul (1.0-4.8); ABS Neutrophils 5.8 10^3/ul (1.5-7.7); ABS Nucleated RBC 0 10^3/ul; Eosinophil % 3.1 % (0-6); Hematocrit 20 % (42-52); Hemoglobin 6.8 g/dl (14.0-18.0); Lymphocyte % 23.4 % (25-47); Mean Corpuscular HGB Conc 34 g/dl (31-36); Mean Corpuscular Hemoglobin 33 pg (27-31); Mean Corpuscular Volume 99 fL (80-94); Mean Platelet Volume 7 um3 (7.4-10.4); Nucleated Red Blood Cells % 0; Platelet Count 382 10^3/ul (150-450); Red Blood Count 2.05 10^6/ul (4.0-5.4); Red Cell Distribution Width 16 % (10.5-15); White Blood Count 9.4 10^3/ul (3.5-10.8)
[2017-05-09 07:04] LABS: EGFR Non-African American 7.1 (>60)
[2017-05-09] MEDS: Insulin LISPRO* 1 UNITS UNIT SUBCUT SCH ×4 (08:04→21:57)
[2017-05-09] MEDS: Famotidine TAB* 20 MG PO SCH (08:45)
[2017-05-09] MEDS: Sevelamer TAB* 800 MG PO SCH ×3 (08:45→18:08)
[2017-05-09] MEDS: Omeprazole CAP* 20 MG PO SCH ×2 (08:45→22:00)
[2017-05-09] MEDS: amLODIPine TAB* 5 MG PO SCH (08:45)
[2017-05-09] MEDS ORDERED: diPHENhydraMINE PO* 50 MG PO ONE (13:12)
[2017-05-09] MEDS: Acetaminophen TAB* 325 MG PO PRN ×2 (13:54→22:00)
[2017-05-09] MEDS ORDERED: Epoetin Alfa* 10,000 UNITS/ML VIAL IV ONE (14:00)
--- NOTE | 2017-05-09 17:21 | PN ---
Subjective Date of Service: 05/09/17 Interval History: hgb to 6.[address] Johnson advised 2u pRBC Pt feeling great after dialysis. Had profuse diaphoresis and drop in blood pressure during dialysis and transfusion of first pRBC. Not quite meeting criteria for transfusion reaction. benadyl and tylenol given. Ortho planning to operate tomorrow. on Room Air. Objective Active Medications: Acetaminophen (Tylenol Tab*) 650 mg PO Q6H PRN PRN Reason: PAIN Last Admin: 05/09/17 13:54 Dose: 650 mg Amlodipine Besylate (Norvasc Tab*) 10 mg PO DAILY [facility] Last Admin: 05/09/17 08:45 Dose: 10 mg Atorvastatin Calcium (Lipitor*) 5 mg PO QPM [facility] Last Admin: 05/08/17 18:32 Dose: 5 mg Dextrose (D50w Syringe 50 Ml*) 12.5 gm IV PUSH .FOR FS < 60 - SS PRN PRN Reason: FS < 60 Famotidine (Pepcid Tab*) 20 mg PO DAILY [facility] Last Admin: 05/09/17 08:45 Dose: 20 mg Ceftriaxone Sodium 1 gm/ (Sodium Chloride) 50 mls @ 200 mls/hr IVPB 1730 [facility] Insulin Human Lispro (Humalog*) 0 units SUBCUT ACHS [facility] PRN Reason: Protocol Last Admin: 05/09/17 11:12 Dose: Not Given Omeprazole (Prilosec Cap*) 20 mg PO BID [facility] Last Admin: 05/09/17 08:45 Dose: 20 mg Oxycodone HCl (Roxycodone Tab*) 5 mg PO Q4H PRN PRN Reason: PAIN Last Admin: 05/09/17 12:27 Dose: 5 mg Sevelamer Carbonate (Renvela Tab*) 1,600 mg PO TID WITH MEALS [facility] Last Admin: 05/09/17 12:27 Dose: 1,600 mg Vital Signs - 8 hr 05/09/17 05/09/17 05/09/17 11:07 12:27 13:57 Temperature 98.0 F Pulse Rate 87 Respiratory 18 18 16 Rate Blood Pressure 158/93 (mmHg) O2 Sat by Pulse 99 Oximetry 05/09/17 16:26 Temperature Pulse Rate Respiratory 16 Rate Blood Pressure (mmHg) O2 Sat by Pulse Oximetry Oxygen Devices in Use Now: None Appearance: NAD Neck: NL Appearance and Movements; NL JVP Respiratory: Symmetrical Chest Expansion and Respiratory Effort, Clear to Auscultation Cardiovascular: NL Sounds; No Murmurs; No JVD Abdominal: NL Sounds; No Tenderness; No Distention Extremities: No Edema, - - left foot necrosis at previous edge of 2-5 toe amputation. s/p right TMA. Skin: - Neurological: Alert and Oriented x 3, NL Sensation, NL Muscle Strength and Tone Nutrition: Taking PO's Result Diagrams: 05/09/17 06:23 05/09/17 06:23 Additional Lab and Data: Laboratory Results - last 24 hr 05/08/17 05/08/17 05/09/17 17:14 20:38 06:23 WBC 9.4 RBC 2.05 L Hgb 6.8 L Hct 20 L MCV 99 H MCH 33 H MCHC 34 RDW 16 H Plt Count 382 MPV 7 L Neut % (Auto) 61.7 Lymph % (Auto) 23.4 L [place] % (Auto) 11.0 H Eos % (Auto) 3.1 Baso % (Auto) 0.8 Absolute Neuts (auto) 5.8 Absolute Lymphs (auto) 2.2 Absolute Monos (auto) 1.0 H Absolute Eos (auto) 0.3 Absolute Basos (auto) 0.1 Absolute Nucleated RBC 0 Nucleated RBC % 0 Sodium Potassium Chloride Carbon Dioxide Anion Gap BUN Creatinine Est GFR ( Amer) Est GFR (Non-Af Amer) BUN/Creatinine Ratio Glucose POC Glucose (mg/dL) 110 H 132 H Calcium Blood Type Antibody Screen Crossmatch 05/09/17 05/09/17 05/09/17 06:23 06:23 07:58 WBC RBC Hgb Hct MCV MCH MCHC RDW Plt Count MPV Neut % (Auto) Lymph % (Auto) [place] % (Auto) Eos % (Auto) Baso % (Auto) Absolute Neuts (auto) Absolute Lymphs (auto) Absolute Monos (auto) Absolute Eos (auto) Absolute Basos (auto) Absolute Nucleated RBC Nucleated RBC % Sodium 135 Potassium 4.6 Chloride 95 L Carbon Dioxide 28 Anion Gap 12 H BUN 53 H Creatinine 8.03 H Est GFR ( Amer) 9.1 Est GFR (Non-Af Amer) 7.1 BUN/Creatinine Ratio 6.6 L Glucose 103 H POC Glucose (mg/dL) 110 H Calcium 9.3 Blood Type A Positive Antibody Screen Negative Crossmatch See Detail 05/09/17 05/09/17 11:08 16:59 WBC RBC Hgb Hct MCV MCH MCHC RDW Plt Count MPV Neut % (Auto) Lymph % (Auto) [place] % (Auto) Eos % (Auto) Baso % (Auto) Absolute Neuts (auto) Absolute Lymphs (auto) Absolute Monos (auto) Absolute Eos (auto) Absolute Basos (auto) Absolute Nucleated RBC Nucleated RBC % Sodium Potassium Chloride Carbon Dioxide Anion Gap BUN Creatinine Est GFR ( Amer) Est GFR (Non-Af Amer) BUN/Creatinine Ratio Glucose POC Glucose (mg/dL) 123 H 123 H Calcium Blood Type Antibody Screen Crossmatch Microbiology and Other Data: Microbiology 05/07/17 12:40 Foot Left Skin and Soft Tissue MRSA/MSSA (PCR - Final Mrsa Negative S.aureus Negative 05/07/17 12:40 Foot Left Gram Stain - Final 05/07/17 12:40 Foot Left Wound Culture - Preliminary Enterococcus Faecalis Normal Tali 05/08/17 18:34 Stool Stool Occult Blood ([facility]) - Final Assess/Plan/Problems-Billing Assessment: 52 yo male PMH ESRD, anemia with recent clean based gastric ulcer on PPI and H2B , DM, s/p right TMA and aborted left necrotic foot wound when hypoxic respiratory failure. Presents with hypoxic respiratory failure, hyperkalemia and volume overload improved with HD. Consults to Dr. Louis and ID. Entercoccous Faecalis again in the left foot. Leukocytosis resolved on cftx. Got 2u pRBC 05/09. Medically optimized for orthopedic surgery of left foot 05/10 - Patient Problems (1) Acute respiratory failure with hypoxia Current Visit: Yes Status: Acute Code(s): J96.01 - ACUTE RESPIRATORY FAILURE WITH HYPOXIA SNOMED Code(s): 84766724 Comment: resolved with HD and 4L off on 05/07. was 6L up per botany technician. Got HD again today. Room Air. continue HD MWF while here. (2) Toe gangrene Current Visit: No Status: Acute Code(s): I96 - GANGRENE, NOT ELSEWHERE CLASSIFIED SNOMED Code(s): 399980594 Comment: Necrotic left foot across previous amputation and extending into 1st toe. Culture growing Enterococcus Faecalis (again). f/u sensistivites. Currently on ceftriaxone. f/u ID recs. Previous ostemyelitis. Needing amputation which was aborted this month. Dr. Dyson to operate tomorrow 05/10. npo midnight. patient medically optimized and cleared for surgery. pain control (3) Anemia Current Visit: No Status: Acute Code(s): D64.9 - ANEMIA, UNSPECIFIED SNOMED Code(s): 948972405 Comment: clean based gastric ulcer on outpatient EGD 05/01. continue PPI, H2 [place]. poor retic produciton index in setting of infection. also lost a bunch of weight in last year ~150 lbs. Also lost his suddenly in Dec. Dr. Johnson advised 2u pRBC today, got in HD continue epogen. b12, folate okay in January. (4) ESRD (end stage renal disease) Current Visit: No Status: Acute Code(s): N18.6 - END STAGE RENAL DISEASE SNOMED Code(s): 03500011 Comment: HD MWF while inpatient. TRSa as outpatient. (5) Hypertension Current Visit: No Status: Acute Code(s): I10 - ESSENTIAL (PRIMARY) HYPERTENSION SNOMED Code(s): 75500896 Comment: Norvasc 10mg, will add metoprolol 12.5mg BID. (6) DM type 2 (diabetes mellitus, type 2) Current Visit: No Status: Chronic Priority: Medium Comment: continue SSI lispro, has not required. has lost a lot of weight (150 lbs over 6 months) (7) Chest pain Current Visit: No Status: Resolved Code(s): R07.9 - CHEST PAIN, UNSPECIFIED SNOMED Code(s): 04041960 Comment: troponins 0.03, 0.04, 0.04. ekg without e/o ischemia. resolved with HD, suspect 2/2 volume overload. (8) Depression Current Visit: Yes Status: Acute Code(s): F32.9 - MAJOR DEPRESSIVE DISORDER , SINGLE EPISODE, UNSPECIFIED SNOMED Code(s): 70090475 Comment: Pt's suddenly in December and expressed desire to Leeann Johnson that he would like to talk to saraycount includes the [facility] counselor. Status and Disposition: medicine inpatient. getting ortho surgery 05/10
[2017-05-09] MEDS: cefTRIAXone(*) 1 GM in NS 0.9% 50 ML* 50 ML IVPB SCH ×2 (17:31→18:08)
[2017-05-09] MEDS: Atorvastatin* 10 MG TAB PO SCH (18:08)
[2017-05-09] MEDS: Metoprolol Tartrate TAB* 25 MG PO SCH (22:01)
[2017-05-09] MEDS: CMCS:Melatonin (NF) 3 MG TAB PO SCH (22:02)
--- NOTE | 2017-05-10 00:54 | CONS ---
CONSULTATION REPORT: DATE OF CONSULT: 05/09/17 ATTENDING PHYSICIAN: Dr. Bradley Dyson. PRIMARY CARE PROVIDER: The patient does not have one. REASON FOR CONSULT: Chronic left foot wound. HISTORY OF PRESENT ILLNESS: Mr. Sreekanth Singletary is a 52-year-old male. He has a past medical history of diabetes, hypertension, hyperlipidemia, gout, end- stage renal disease with hemodialysis, osteomyelitis, right transmetatarsal amputation, left foot status post amputation second through fifth toes. Earlier this month, revision of amputation of the left foot was aborted with Dr. Louis due to hypoxemia. He is now again seen in the hospital with original admission on this occasion due to shortness of breath. The patient states that he has had surgery in the past, tolerating anesthesia well aside from his last surgery in which his oxygen saturation dropped markedly. He has never had a blood clot. He has never had a stroke or heart attack. He is a diabetic. He does not have any thyroid issues. He has had several blood transfusion in the past. He has no history of HIV or hepatitis. PAST MEDICAL HISTORY: Hypertension; unp-ganxstt-lvwdejzsi diabetes; osteomyelitis of the left foot, status post amputation of toes 2 through 5 with chronic necrotic foot wound; status post transmetatarsal amputation on the right ; end-stage renal disease, on hemodialysis typically Sunday, , Sunday ; gout; moderate mitral valve regurg; moderate pulmonary hypertension. MEDICATIONS: As seen in chart, the patient is on no blood thinners at this time , but he does take a baby aspirin daily at home. Last time taken was Sunday of this week. ALLERGIES: No known drug allergies. FAMILY HISTORY: Father, history of heart attack. Paternal grandmother, history of diabetes. SOCIAL HISTORY: The patient does not drink. He does not smoke. He does not use drugs. His medical surrogate decision maker is his daughter, Alicia Singletary, phone number [phone]. CODE STATUS: The patient is a full code. REVIEW OF SYSTEMS: General: The patient feels well without fatigue, chills, or fevers. Head: No headache. No changes in vision. Cardio: No chest pain. No irregular beats. Respiratory: No shortness of breath or cough. Abdominal: No nausea, vomiting, diarrhea, or constipation. Musculoskeletal: Osteomyelitis , left foot, status post transmetatarsal amputation on the right foot. History of gout. Neuro: Decreased sensation of both feet. Hematology: No easy bruising. Does bleed easily. No history of blood clots. PHYSICAL EXAM: Vital Signs: Temperature 98.0, pulse 87, respiratory rate 18, oxygen saturation 99%, blood pressure 158/93. General Appearance: The patient is receiving hemodialysis. He is in no acute distress. HEENT: Normocephalic, atraumatic. Extraocular movements intact. Cardiovascular: Regular rate and rhythm. S1 and S2. Respiratory: Lungs clear to auscultation bilaterally. Abdomen: Soft, nontender. Normal bowel sounds. Musculoskeletal: Left foot with chronic open wound with necrotic edges and purulent discharge extending from along the distal aspect of the foot from the second to the fifth metatarsal. The first digit is the only digit still present on this foot which is erythematous. There is erythema spanning the edges of this open wound as well. Necrotic tissue spans the entirety of the distal aspect of the forefoot. Neuro: Sensation is intact at least to pressure throughout the left foot. The patient states that palpation tickles rather than hurt even the open wound. The patient is alert and oriented x3. Vascular: 1+ DP and PT pulse on the left lower extremity. Calf is supple and nontender without erythema, edema, or palpable cords. DIAGNOSTIC STUDIES/LAB DATA: Hemoglobin 6.8, hematocrit 20. CTA of the chest done, 05/07/17, was negative for pulmonary embolism that did show enlargement of the main pulmonary artery, suggested pulmonary arterial hypertension, also shows pulmonary interstitial edema, persistent multifocal airspace disease, and small bilateral pleural effusions. ASSESSMENT: Chronic left foot wound. PLAN: The patient will be n.p.o. He will be brought to the operating room tomorrow by Dr. Dyson. The patient is agreeable to this. I have discussed this case as well with Dr. Dukes, who feels despite the patient's known anemia and other chronic medical comorbidities, he is medically optimized for surgery as much as he will be within the foreseeable future. The patient is aware of the risks of surgery especially with his medical comorbidities and is agreeable to undergo revision of his amputation on his left foot. Dr. Dyson will meet with the patient tomorrow as well. ERIKA NAVARRO, VANDANA [id number]/[facility] #: [id number] [facility] STATE HOSPITALBryanna
[2017-05-10 05:58] LABS: ABS Basophils 0.1 10^3/ul (0-0.2); ABS Eosinophils 0.3 10^3/ul (0-0.6); ABS Lymphocytes 2.2 10^3/ul (1.0-4.8); ABS Monocytes 1.1 10^3/ul (0-0.8); ABS Neutrophils 6.3 10^3/ul (1.5-7.7); ABS Nucleated RBC 0 10^3/ul; Eosinophil % 2.7 % (0-6); Hematocrit 26 % (42-52); Hemoglobin 8.8 g/dl (14.0-18.0); Lymphocyte % 22.4 % (25-47); Mean Corpuscular HGB Conc 34 g/dl (31-36); Mean Corpuscular Hemoglobin 32 pg (27-31); Mean Corpuscular Volume 94 fL (80-94); Mean Platelet Volume 8 um3 (7.4-10.4); Nucleated Red Blood Cells % 0; Platelet Count 436 10^3/ul (150-450); Red Blood Count 2.79 10^6/ul (4.0-5.4); Red Cell Distribution Width 22 % (10.5-15)
[2017-05-10 06:05] LABS: INR 1.17 (0.77-1.02)
[2017-05-10 06:11] LABS: EGFR Non-African American 9.6 (>60)
[2017-05-10] MEDS: Insulin LISPRO* 1 UNITS UNIT SUBCUT SCH ×4 (07:49→20:29)
--- NOTE | 2017-05-10 08:05 | CONSULT ---
Consult Consult: Date of Service: 05/10/17 Reason for consultation: Critical limb ischemia, left foot ulcer in a vasculopath (Focused) HPI: Mr. Katy Latham is a 52-year-old male with past medical history of non- insulin dependent diabetes, hypertension, hyperlipidemia, gout, end-stage renal disease hemodialysis Sunday, and Sunday since January 2017, osteomyelitis, is most recently status post right transmetatarsal amputation and chronic left foot wounds status post amputation of second through fifth toes. Dr. Louis aborted further left foot amputation this month after found to be hypoxic in preop, chronic anemia with recent EGD showing gastric ulcer on with Dr. Javed. The patient presented to the Emergency Room on 05/07/17 with hypoxia to the mid 80s. He also had complaints of chest fullness in his upper sternum similar to when he was admitted in early April for his surgery. Of note, patient at that admission between 04/23/17 and 04/25/17 had been diagnosed with community-acquired pneumonia for which the cefdinir was prescribed on discharge. He had heme positive stools at that time. Prior to issues with wounds he reports pelvic and hip pain that radiates to the upper thighs. This occurred both at rest and with walking. He is uncertain if he consistently has had pain in the calves or feet, either with walking or laying in bed at night, due to the pain with the wounds. The patient currently received hemodialysis from a right IJV TDC placed on 01/23. The patient reports that sometime they have trouble getting "good flow" and have to reverse the catheters. PMH: 1. Hypertension. 2. Non-insulin dependent diabetes mellitus. 3. Osteomyelitis of the left foot status post amputation of toes two to five with now necrotic wound with aborted surgery with Dr. Louis until hemoglobin more stable, status post transmetatarsal amputation of the right foot. 4. Endstage renal disease on hemodialysis Sunday, and Sunday. 5. Gout. 6. Moderate mitral valve regurgitation. 7. Moderate pulmonary hypertension. MEDICATIONS (Upon Admission): 1. Amlodipine 10 mg daily. 2. Simvastatin 10 mg q.h.s. 3. Zantac 300 mg p.o. daily. 4. Tylenol 650 mg p.o. q. 6 hours p.r.n. 5. Sevelamer 1600 mg p.o. t.i.d. 6. Omeprazole 20 mg p.o. b.i.d. ALLERGIES: NKDA SOCIAL HISTORY: The patient works at [employer]. He was occasional drinker, no longer, never smoker. His medical surrogate his daughter, Zahida Latham of [place], [place], [phone]. He desires to be a full code. REVIEW OF SYSTEMS: Negative except as per HPI above. Physical Exam: Selected Entries 05/10/17 07:46 Temperature 97.9 F Temperature Oral Source Pulse Rate 77 Respiratory 14 Rate Blood Pressure 148/92 (mmHg) Blood Pressure 106 Mean O2 Sat by Pulse 100 Oximetry Patient on Room Yes Air NAD AAO x 3 RRR, S1/S2 CTAB Right upper chest TDC in place. 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 Latham sat up to dangle his lower leg over the edge of the bed to alleviate foot pain Data: Laboratory Tests 05/07/17 05/08/17 05/09/17 08:20 06:26 06:23 WBC 17.8 H 9.4 9.4 RBC Hgb Hct INR (Anticoag Therapy) Creatinine Est GFR (Non-Af Amer) BUN/Creatinine Ratio 05/10/17 05/10/17 05/10/17 05:02 05:09 05:09 WBC 10.0 RBC 2.79 L Hgb 8.8 L Hct 26 L INR (Anticoag Therapy) 1.17 H Creatinine 6.14 H Est GFR (Non-Af Amer) 9.6 BUN/Creatinine Ratio 5.9 L Patient Name: KATY LATHAM Medical Record#: [id number] Ordering Physician: Blaine Avila NP Acct.#: [id number] : 1965 Age: 52 Sex: M Location: SURGICAL STAY UNIT Exam Date: 02/18/172109 ADM Status: ADM IN Order Information: VL ANK/ BRACHIAL INDICES Accession Number: [id number] CPT: 32467 Indication: Lower extremity wounds. Comparison: January 25, 2015 Technique: Ankle and brachial blood pressure measurement. Calculated ankle- brachial indices. REPORT: The right ankle brachial index is could not be calculated due to noncompressible vessels. Preserved triphasic waveforms at the posterior tibial and dorsalis pedis arteries. Grossly unremarkable RIGHT ankle pulse volume recording. The left ankle brachial index is could not be calculated due to noncompressible vessels. Low amplitude biphasic posterior tibial and biphasic dorsalis pedis waveforms. Grossly unremarkable LEFT ankle pulse volume recording. IMPRESSION: Noncompressible vessels limiting assessment. Based on the appearance of the LEFT posterior tibial and dorsalis pedis waveforms there is likely low-grade intrinsic LEFT lower extremity stenoses or inflow disease. <Electronically signed by Fermín Nguyen MD in OV> 02/18/17 1520 Dictated By: Fermín Nguyen MD Dictated Date/Time: 02/18/17 1520 Transcribed Date/Time: 02/18/177 CXR dated 05/07/[address] chest 04/24/17 was reviewed by me. The TDC tips terminate at the right brachiocephalic vein and SVC/left BCV junction respectively. Summary: 52 year old diabetic with Critical Limb Ischemia, requiring bilateral toe amputations. Most recently he appears to have a non-healing left amputation site. His presentation is complicated by anemia in the presence of GI bleed and likely decreased synthesis secondary to CRD. There does not appear to be any large artery insufficiency at least up to the popliteal arteries. Review of imaging to date and my physical exam indicate to me that his foot wounds are due to poor diabetes control and microvascular disease. At the time of evaluation he "dangled" his feet over the edge of the bed that he stated makes his feet hurt less. This is a maneuver applied by people with arterial insufficiency to augment blood flow to the feet. Plan/Recommendations: 1. 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 I have ordered Arterial Duplex of the LLE with attention to the infrapopliteal and pedal arteries. If there is any objective stenosis or occlusion then angiography will be advised. 2. The right IJ venotomy suture is still in place from January with surrounding erythema. If this has been there since the January placement it should be removed. (I submitted a nursing communication to remove this suture which can be done with a #11 scalpel in most cases.) 3. Review of the CT chest shows the TDC catheter tips terminating at the right brachiocephalic vein and left BCV/SVC junction, respectively. If there is any difficulty with hemodialysis flow I recommend contrast catheter study.
[2017-05-10] MEDS ORDERED: Morphine INJ* 2 MG/ML 1 ML CARPUJECT IV PRN (08:11)
[2017-05-10] MEDS: amLODIPine TAB* 5 MG PO SCH (08:18)
[2017-05-10] MEDS: Sevelamer TAB* 800 MG PO SCH ×3 (08:18→18:02)
[2017-05-10] MEDS: Famotidine TAB* 20 MG PO SCH (08:25)
[2017-05-10] MEDS: Metoprolol Tartrate TAB* 25 MG PO SCH ×2 (08:25→20:30)
[2017-05-10] MEDS: Omeprazole CAP* 20 MG PO SCH ×2 (08:25→20:29)
[2017-05-10] MEDS: Acetaminophen TAB* 325 MG PO PRN (08:26)
--- NOTE | 2017-05-10 10:44 | CONSULT ---
Consult Consult: orthopedics consultation addendum please see full Orthopedics consult note by Shima Doss from yesterday for full history and physical exam. In brief, Mr. Singletary is a man with diabetic neuropathy and vasculopathywho has had previous forefoot amputations. He now has an unhealed left foot wound and infection. I had vascular consult on him, and pending the results of an arterial ultrasound, they do not think there is any intervention warranted. The medical service feels he is optimized for the operating room. I discussed the diagnosis and prognosis at length with Mr. Singletary. We discussed both nonoperative and operative treatment options. He expressed his desire to move forward with a hindfoot amputation severity can move forward with this life. I think this is a very reasonable decision given the status of this foot. We discussed that the amputation would entail. We discussed an Achilles tenotomy and tendon transfers as well. Assuming the ultrasound goes well today we will plan on a Chopart amputation this afternoon. All his questions were answered. Bradley Dyson MD
[2017-05-10] MEDS ORDERED: Bupivacaine 0.5% SDV PF* 10-30ML VIAL ONE (12:51)
[2017-05-10] MEDS ORDERED: Midazolam* 1 MG/ML 2 ML VIAL (2 MG) ONE (13:58)
[2017-05-10] MEDS ORDERED: Ondansetron INJ* 2 MG/ML VIAL ONE (13:59)
[2017-05-10] MEDS ORDERED: Propofol* 10 MG/ML 20 ML BTL IV PUSH ONE (13:59)
[2017-05-10] MEDS ORDERED: Metoclopramide IV* 5 MG/ML 2 ML VIAL ONE (13:59)
[2017-05-10] MEDS ORDERED: EPHEDrine (Pressors)* 50 MG/ML VIAL ONE (15:35)
[2017-05-10] MEDS ORDERED: fentaNYL* 50 MCG/ML 2 ML VIAL (100 MCG VIAL) ONE (15:48)
[2017-05-10] MEDS ORDERED: fentaNYL* 50 MCG/ML 2 ML VIAL (100 MCG VIAL) IV PRN (16:10)
[2017-05-10] MEDS ORDERED: DiMENhydriNATE IV* 50 MG/ML VIAL IV PUSH PRN (16:10)
[2017-05-10] MEDS ORDERED: Naloxone* 0.4 MG/ML 1 ML VIAL IV PRN (16:10)
--- NOTE | 2017-05-10 16:20 | OP ---
Operative Report - Blank - Operative Report Date of Operation: 05/10/17 Note: PATIENT: Sreekanth Singletary DATE OF : [birth year] DATE OF SURGERY: 05/10/17 SURGEON: Bradley Dyson MD HOSPITALITY JOB TITLES: VANDANA Temple, whos assistance was necessary for positioning, retraction, help with instrumentation, and closure. ANESTHESIOLOGIST: Dr. Schaeffer PREOPERATIVE DIAGNOSIS: Left foot infection with osteomyelitis POSTOPERATIVE DIAGNOSIS: Left foot infection with osteomyelitis OPERATION: 1. Left foot transtarsal (Chopart) amputation 2. Left tibialis anterior tendon transfer 3. Left peroneus brevis tendon transfer 4. Left percutaneous Achilles tenotomy ANESTHESIA: MAC IMPLANTS: none TOURNIQUET TIME: Less than 2 hours with a well-padded thigh tourniquet at 250mmHg. SPECIMENS: Foot sent to pathology ESTIMATED BLOOD LOSS: minimal COMPLICATIONS: none STATUS: Stable from the operating room to the recovery room and then back to the hospital floor. INDICATIONS FOR PROCEDURE: Sreekanth is a diabetic with a worsening left foot infection. Both operative and non operative treatment alternatives were reviewed. Further, the nature and risks of surgery were reviewed in careful detail. Our discussions regarding the risks of surgery included, but were not limited to, infection, wound problems, nerve injury, neuroma, RSD, persistent symptoms, blood clot, persistent or worsening infection, phantom limb pain, failure of the surgery, need for further amputation, and even the remote chance of catastrophic complication, including loss of limb. DESCRIPTION OF PROCEDURE: The patient was seen in the preoperative holding unit and informed written consent was obtained. The appropriate extremity was marked. The patient was then brought to the operating room and carefully positioned on the operating room table. Anesthesia was induced. All bony prominences were padded with great care. A well-padded thigh tourniquet was placed. A chlorhexidine based pre- scrub was performed followed by a chloraprep prep and drape in standard sterile fashion. A surgical safety pause was then conducted in which we confirmed the appropriate patient, extremity, planned procedure, availability of equipment, indication and administration of prophylactic antibiotics, and DVT prophylaxis in the form of a compression boot on the non-surgical extremity. We began with Esmarch exsanguination of the limb, avoiding the involved foot, and inflated the tourniquet. We utilized a fish-mouth incision at the midfoot. I dissected down through the dorsal and lateral foot to define the tibialis anterior and peroneus brevis tendons. These were dissected out, incised at their distal insertion, and tagged for later transfer. I then identified the neurovascular bundles. The vessels were carefully tied off and the nerves were transected proximally in the soft tissue. Tendons (except the tibialis anterior and peroneus brevis) were transected. I then sharply dissected down to the transtarsal joints. The mid and forefoot were then amputated at the level of the transtarsal (Chopart) joints. The foot was sent to pathology. The tibialis anterior tendon was then transferred to the neck of the talus. The tendon was sized and an appropriately sized diameter drill hole was made into the neck of the talus. The ankle was held in a neutral position and the tendon was passed transosseously through the drill hole and secured with #1 vicryl sutures. The peroneus brevis was then transferred to the anterior calcaneus. The tendon was sized and an appropriately sized diameter drill hole was made into the anterior calcaneus. The ankle was held in a neutral position and the tendon was passed transosseously through the drill hole and secured with #1 vicryl sutures. I then turned my attention to the Achilles tendon to prevent a progressive equinus contracture. I performed a percutaneous tenotomy of the midsubstance of the Achilles tendon utilizing a 15-blade scalpel. The ankle was then dorsiflexed confirming that the Achilles had been fully transected. At this point, the tourniquet was deflated. Hemostasis was obtained. We irrigated copiously. All remain tissue appeared healthy and viable. We closed meticulously in layers utilizing 0 Vicryl for the deep layer, 3-0 Monocryl for the subdermal layer, and amber for the skin. A sterile dressing was then applied followed by a splint with the ankle in neutral alignment. The patient was then awakened from anesthesia and transferred to the recovery room in stable condition. There were no complications. All needle and sponge counts were correct at the end of the case. ATTESTATION: I attest I was present and scrubbed and performed the critical portions of the procedure myself. POSTOPERATIVE PLAN: The patient will remain [id number] in the splint and will follow up will be in two weeks for a wound check, but we will likely leave the amber in for 3 weeks. Antibiotic treatment will be guided by the infectious disease service.
--- NOTE | 2017-05-10 17:13 | RAD ---
INDICATION: Critical limb ischemia and a diabetic patient with history of bilateral foot amputations. Currently there is gangrene at the distal left foot. COMPARISON: JETT dated February 18, 2017 that indicated patency of flow and calcified noncompressible arteries. TECHNIQUE: Carmen scale, color Doppler, and spectral analysis utilized to image the left popliteal and infrapopliteal arteries. Flow velocities were determined at each visualized artery. REPORT: The popliteal artery is adequately patent with nearly triphasic arterial waveforms. There is patency documented at the proximal anterior tibial, posterior tibial and peroneal arteries. In the infrapopliteal arteries color flow imaging is blunted due to coarse calcification in the pierce of the artery but arterial waveforms are identified continuously at multiple levels of all 3 infrapopliteal arteries up to the ankle. Measurable arterial waveforms are seen in the distal anterior tibial artery and into the dorsalis pedis artery as far as the forefoot. At the distal posterior tibial artery there is a focus of increased flow velocity measuring 112 cm/s but patency is maintained and there is adequate flow with appropriate velocities as far as the mid foot plantar arteries. IMPRESSION: Arterial duplex sonography of the left lower leg from the popliteal artery to the left forefoot indicates in-line patent flow from the popliteal artery to the distal foot. Of particular relevance according to the patient's current clinical presentation of left distal foot critical limb ischemia, adequate patency is identified in the dorsalis pedis artery as far as the forefoot and in the plantar arteries at least to the mid foot.
[2017-05-10] MEDS: cefTRIAXone(*) 1 GM in NS 0.9% 50 ML* 50 ML IVPB SCH (17:59)
[2017-05-10] MEDS: Atorvastatin* 10 MG TAB PO SCH (18:01)
[2017-05-10] MEDS: oxyCODONE TAB* 5 MG TAB PO PRN (18:30)
--- NOTE | 2017-05-10 19:14 | PN ---
Subjective Date of Service: 05/10/17 Interval History: Pt feels very well post op. Objective Active Medications: Acetaminophen (Tylenol Tab*) 650 mg PO Q6H PRN PRN Reason: PAIN Last Admin: 05/10/17 08:26 Dose: 650 mg Amlodipine Besylate (Norvasc Tab*) 10 mg PO DAILY [facility] Last Admin: 05/10/17 08:18 Dose: Not Given Atorvastatin Calcium (Lipitor*) 5 mg PO QPM [facility] Last Admin: 05/10/17 18:01 Dose: 5 mg Dextrose (D50w Syringe 50 Ml*) 12.5 gm IV PUSH .FOR FS < 60 - SS PRN PRN Reason: FS < 60 Famotidine (Pepcid Tab*) 20 mg PO DAILY [facility] Last Admin: 05/10/17 08:25 Dose: 20 mg Ceftriaxone Sodium 1 gm/ (Sodium Chloride) 50 mls @ 200 mls/hr IVPB 1730 [facility] Last Admin: 05/10/17 17:59 Dose: 200 mls/hr Insulin Human Lispro (Humalog*) 0 units SUBCUT ACHS [facility] PRN Reason: Protocol Last Admin: 05/10/17 17:06 Dose: Not Given Melatonin (Melatonin (Nf)) 3 mg PO BEDTIME [facility] Last Admin: 05/09/17 22:02 Dose: 3 mg Metoprolol Tartrate (Lopressor Tab*) 12.5 mg PO Q12HR [facility] Last Admin: 05/10/17 08:25 Dose: 12.5 mg Morphine Sulfate (Morphine Inj (Syringe)*) 1 mg IV Q4H PRN PRN Reason: PAIN Naloxone HCl (Narcan*) 0.08 mg IV Q2M PRN PRN Reason: severe induced resp depression Stop: 05/11/17 16:09 Omeprazole (Prilosec Cap*) 20 mg PO BID [facility] Last Admin: 05/10/17 08:25 Dose: 20 mg Oxycodone HCl (Roxycodone Tab*) 5 mg PO Q4H PRN PRN Reason: PAIN Last Admin: 05/10/17 18:30 Dose: 5 mg Sevelamer Carbonate (Renvela Tab*) 1,600 mg PO TID WITH MEALS [facility] Last Admin: 05/10/17 18:02 Dose: 1,600 mg Vital Signs - 8 hr 05/10/17 05/10/17 05/10/17 11:48 16:05 16:10 Temperature 98.3 F 97.9 F Pulse Rate 76 85 80 Respiratory 18 16 15 Rate Blood Pressure 157/91 134/85 137/61 (mmHg) O2 Sat by Pulse 100 93 100 Oximetry 05/10/17 05/10/17 05/10/17 16:15 16:20 16:36 Temperature Pulse Rate 81 80 76 Respiratory 16 18 16 Rate Blood Pressure 125/59 129/70 116/56 (mmHg) O2 Sat by Pulse 100 100 100 Oximetry 05/10/17 05/10/17 16:56 18:30 Temperature 98.5 F Pulse Rate 76 Respiratory 16 18 Rate Blood Pressure 141/70 (mmHg) O2 Sat by Pulse 100 Oximetry Oxygen Devices in Use Now: None Appearance: 52 yo M in nAD, aAOx3 Eyes: No Scleral Icterus, PERRLA Ears/Nose/Mouth/Throat: NL Teeth, Lips, Gums, Mucous Membranes Moist Neck: NL Appearance and Movements; NL JVP, Trachea Midline Respiratory: Symmetrical Chest Expansion and Respiratory Effort, Clear to Auscultation Cardiovascular: NL Sounds; No Murmurs; No JVD, RRR Abdominal: NL Sounds; No Tenderness; No Distention, No Hepatosplenomegaly Lymphatic: No Cervical Adenopathy Extremities: No Clubbing, Cyanosis, - - R TMa noted, left foot s/p partial amputation in ppost op dressings in place-not removed Skin: No Rash or Ulcers, No Nodules or Sclerosis Neurological: Alert and Oriented x 3, NL Muscle Strength and Tone Result Diagrams: 05/10/17 05:09 05/10/17 05:09 Additional Lab and Data: Laboratory Results - last 24 hr 05/08/17 05/08/17 05/09/17 17:14 20:38 06:23 WBC 9.4 RBC 2.05 L Hgb 6.8 L Hct 20 L MCV 99 H MCH 33 H MCHC 34 RDW 16 H Plt Count 382 MPV 7 L Neut % (Auto) 61.7 Lymph % (Auto) 23.4 L [place] % (Auto) 11.0 H Eos % (Auto) 3.1 Baso % (Auto) 0.8 Absolute Neuts (auto) 5.8 Absolute Lymphs (auto) 2.2 Absolute Monos (auto) 1.0 H Absolute Eos (auto) 0.3 Absolute Basos (auto) 0.1 Absolute Nucleated RBC 0 Nucleated RBC % 0 Sodium Potassium Chloride Carbon Dioxide Anion Gap BUN Creatinine Est GFR ( Amer) Est GFR (Non-Af Amer) BUN/Creatinine Ratio Glucose POC Glucose (mg/dL) 110 H 132 H Calcium Blood Type Antibody Screen Crossmatch 05/09/17 05/09/17 05/09/17 06:23 06:23 07:58 WBC RBC Hgb Hct MCV MCH MCHC RDW Plt Count MPV Neut % (Auto) Lymph % (Auto) Norman % (Auto) Eos % (Auto) Baso % (Auto) Absolute Neuts (auto) Absolute Lymphs (auto) Absolute Monos (auto) Absolute Eos (auto) Absolute Basos (auto) Absolute Nucleated RBC Nucleated RBC % Sodium 135 Potassium 4.6 Chloride 95 L Carbon Dioxide 28 Anion Gap 12 H BUN 53 H Creatinine 8.03 H Est GFR ( Amer) 9.1 Est GFR (Non-Af Amer) 7.1 BUN/Creatinine Ratio 6.6 L Glucose 103 H POC Glucose (mg/dL) 110 H Calcium 9.3 Blood Type A Positive Antibody Screen Negative Crossmatch See Detail 05/09/17 05/09/17 11:08 16:59 WBC RBC Hgb Hct MCV MCH MCHC RDW Plt Count MPV Neut % (Auto) Lymph % (Auto) Norman % (Auto) Eos % (Auto) Baso % (Auto) Absolute Neuts (auto) Absolute Lymphs (auto) Absolute Monos (auto) Absolute Eos (auto) Absolute Basos (auto) Absolute Nucleated RBC Nucleated RBC % Sodium Potassium Chloride Carbon Dioxide Anion Gap BUN Creatinine Est GFR ( Amer) Est GFR (Non-Af Amer) BUN/Creatinine Ratio Glucose POC Glucose (mg/dL) 123 H 123 H Calcium Blood Type Antibody Screen Crossmatch Microbiology and Other Data: Microbiology 05/07/17 12:40 Foot Left Skin and Soft Tissue MRSA/MSSA (PCR - Final Mrsa Negative S.aureus Negative 05/07/17 12:40 Foot Left Gram Stain - Final 05/07/17 12:40 Foot Left Wound Culture - Preliminary Enterococcus Faecalis Normal Tali 05/08/17 18:34 Stool Stool Occult Blood (RIVERA) - Final Assess/Plan/Problems-Billing Assessment: 52 yo male PMH ESRD, anemia with recent clean based gastric ulcer on PPI and H2B , DM, s/p right TMA and aborted left necrotic foot wound when hypoxic respiratory failure. Presents with hypoxic respiratory failure, hyperkalemia and volume overload improved with HD. Consults to Dr. Louis and ID. Entercoccous Faecalis again in the left foot. Leukocytosis resolved on cftx. Got 2u pRBC 05/09. Medically optimized for orthopedic surgery of left foot performed on 05/10 - Patient Problems (1) Acute respiratory failure with hypoxia Comment: resolved with HD and 4L off on 05/07. was 6L up per geotechnical laboratory technician. HD again on 05/09/17, now comfortable on RA. continue HD MWF while here. (2) Toe gangrene Comment: Necrotic left foot across previous amputation and extending into 1st toe. Culture growing Enterococcus Faecalis (again). f/u sensistivites. Currently on ceftriaxone (3) ESRD (end stage renal disease) Comment: HD MWF while inpatient. TRSa as outpatient. (4) Anemia Comment: clean based gastric ulcer on outpatient EGD 05/01. continue PPI, H2 [place]. poor retic produciton index in setting of infection. also lost a bunch of weight in last year ~150 lbs. Also lost his suddenly in Dec. S/p 2u pRBC on 05/09/17 continue epogen with HD b12, folate okay in January. (5) Hypertension Comment: Norvasc 10mg, metoprolol 12.5mg BID. controlled (6) Diabetes Comment: Cont ISS, at home diet controlled. (7) Depression Comment: Pt's suddenly in December and expressed desire to Leeann Johnson that he would like to talk to [facility] counselor. (8) DVT prophylaxis Comment: SCD's, no anticoagulation due to recetn h/o ulcer and GI bleed Status and Disposition: medicine inpatient.
[2017-05-10] MEDS: CMCS:Melatonin (NF) 3 MG TAB PO SCH (20:29)
[2017-05-11] MEDS: Morphine INJ* 2 MG/ML 1 ML CARPUJECT IV PRN ×3 (01:47→11:37)
[2017-05-11 06:35] LABS: ABS Basophils 0.1 10^3/ul (0-0.2); ABS Eosinophils 0.1 10^3/ul (0-0.6); ABS Lymphocytes 1.7 10^3/ul (1.0-4.8); ABS Monocytes 1.5 10^3/ul (0-0.8); ABS Neutrophils 7.9 10^3/ul (1.5-7.7); ABS Nucleated RBC 0 10^3/ul; Hematocrit 23 % (42-52); Hemoglobin 7.7 g/dl (14.0-18.0); Lymphocyte % 15.4 % (25-47); Mean Corpuscular HGB Conc 34 g/dl (31-36); Mean Corpuscular Hemoglobin 32 pg (27-31); Mean Corpuscular Volume 94 fL (80-94); Mean Platelet Volume 7 um3 (7.4-10.4); Nucleated Red Blood Cells % 0; Platelet Count 364 10^3/ul (150-450); Red Blood Count 2.43 10^6/ul (4.0-5.4); Red Cell Distribution Width 22 % (10.5-15); White Blood Count 11.3 10^3/ul (3.5-10.8)
[2017-05-11 06:52] LABS: EGFR Non-African American 6.8 (>60)
[2017-05-11] MEDS: Insulin LISPRO* 1 UNITS UNIT SUBCUT SCH ×4 (08:05→21:31)
[2017-05-11] MEDS: Omeprazole CAP* 20 MG PO SCH ×2 (08:12→21:47)
[2017-05-11] MEDS: Sevelamer TAB* 800 MG PO SCH ×3 (08:12→17:15)
[2017-05-11] MEDS: oxyCODONE TAB* 5 MG TAB PO PRN ×3 (09:17→20:22)
[2017-05-11] MEDS ORDERED: Epoetin Alfa* 10,000 UNITS/ML VIAL IV ONE (12:00)
[2017-05-11] MEDS: Famotidine TAB* 20 MG PO SCH (14:47)
[2017-05-11] MEDS: amLODIPine TAB* 5 MG PO SCH (14:47)
[2017-05-11] MEDS: Metoprolol Tartrate TAB* 25 MG PO SCH ×2 (14:48→21:44)
--- NOTE | 2017-05-11 15:03 | PN ---
Subjective Date of Service: 05/11/17 Interval History: pt c/o significant post op pain in left leg, unable to ambulate due to that. Had HD today Objective Active Medications: Acetaminophen (Tylenol Tab*) 650 mg PO Q6H PRN PRN Reason: PAIN Last Admin: 05/10/17 08:26 Dose: 650 mg Amlodipine Besylate (Norvasc Tab*) 10 mg PO DAILY [facility] Last Admin: 05/11/17 14:47 Dose: 10 mg Amoxicillin (Amoxicillin Po (*)) 500 mg PO DAILY [facility] Atorvastatin Calcium (Lipitor*) 5 mg PO QPM [facility] Last Admin: 05/10/17 18:01 Dose: 5 mg Dextrose (D50w Syringe 50 Ml*) 12.5 gm IV PUSH .FOR FS < 60 - SS PRN PRN Reason: FS < 60 Famotidine (Pepcid Tab*) 20 mg PO DAILY [facility] Last Admin: 05/11/17 14:47 Dose: 20 mg Insulin Human Lispro (Humalog*) 0 units SUBCUT ACHS [facility] PRN Reason: Protocol Last Admin: 05/11/17 11:46 Dose: Not Given Melatonin (Melatonin (Nf)) 3 mg PO BEDTIME [facility] Last Admin: 05/10/17 20:29 Dose: 3 mg Metoprolol Tartrate (Lopressor Tab*) 12.5 mg PO Q12HR [facility] Last Admin: 05/11/17 14:48 Dose: 12.5 mg Morphine Sulfate (Morphine Inj (Syringe)*) 2 mg IV Q4H PRN PRN Reason: PAIN Last Admin: 05/11/17 11:37 Dose: 2 mg Naloxone HCl (Narcan*) 0.08 mg IV Q2M PRN PRN Reason: severe induced resp depression Stop: 05/11/17 16:09 Omeprazole (Prilosec Cap*) 20 mg PO BID [facility] Last Admin: 05/11/17 08:12 Dose: 20 mg Oxycodone HCl (Roxycodone Tab*) 5 mg PO Q4H PRN PRN Reason: PAIN Last Admin: 05/11/17 14:48 Dose: 5 mg Sevelamer Carbonate (Renvela Tab*) 1,600 mg PO TID WITH MEALS [facility] Last Admin: 05/11/17 14:20 Dose: Not Given Vital Signs - 8 hr 05/11/17 05/11/17 05/11/17 07:21 07:26 07:47 Temperature 98.6 F Pulse Rate 81 Respiratory 16 16 16 Rate Blood Pressure 146/79 (mmHg) O2 Sat by Pulse 98 98 Oximetry 05/11/17 05/11/17 05/11/17 09:17 09:42 11:37 Temperature Pulse Rate Respiratory 16 16 16 Rate Blood Pressure (mmHg) O2 Sat by Pulse Oximetry 05/11/17 05/11/17 14:38 14:48 Temperature 97.7 F Pulse Rate 88 Respiratory 16 16 Rate Blood Pressure 134/71 (mmHg) O2 Sat by Pulse 100 Oximetry Oxygen Devices in Use Now: None Appearance: 52 yo M in nAD, AAOx3 Eyes: No Scleral Icterus, PERRLA Ears/Nose/Mouth/Throat: NL Teeth, Lips, Gums, Mucous Membranes Moist Neck: NL Appearance and Movements; NL JVP, Trachea Midline Respiratory: Symmetrical Chest Expansion and Respiratory Effort, Clear to Auscultation Cardiovascular: RRR, - - 2/6 SHANNAN at RUSB Abdominal: NL Sounds; No Tenderness; No Distention, No Hepatosplenomegaly Lymphatic: No Cervical Adenopathy Extremities: No Edema, No Clubbing, Cyanosis Skin: No Nodules or Sclerosis, - - left foot in post op dressings drain in place Neurological: Alert and Oriented x 3, NL Muscle Strength and Tone Result Diagrams: 05/11/17 06:22 05/11/17 06:22 Additional Lab and Data: Laboratory Results - last 24 hr 05/08/17 05/08/17 05/09/17 17:14 20:38 06:23 WBC 9.4 RBC 2.05 L Hgb 6.8 L Hct 20 L MCV 99 H MCH 33 H MCHC 34 RDW 16 H Plt Count 382 MPV 7 L Neut % (Auto) 61.7 Lymph % (Auto) 23.4 L Bill[place] % (Auto) 11.0 H Eos % (Auto) 3.1 Baso % (Auto) 0.8 Absolute Neuts (auto) 5.8 Absolute Lymphs (auto) 2.2 Absolute Monos (auto) 1.0 H Absolute Eos (auto) 0.3 Absolute Basos (auto) 0.1 Absolute Nucleated RBC 0 Nucleated RBC % 0 Sodium Potassium Chloride Carbon Dioxide Anion Gap BUN Creatinine Est GFR ( Amer) Est GFR (Non-Af Amer) BUN/Creatinine Ratio Glucose POC Glucose (mg/dL) 110 H 132 H Calcium Blood Type Antibody Screen Crossmatch 05/09/17 05/09/17 05/09/17 06:23 06:23 07:58 WBC RBC Hgb Hct MCV MCH MCHC RDW Plt Count MPV Neut % (Auto) Lymph % (Auto) [place] % (Auto) Eos % (Auto) Baso % (Auto) Absolute Neuts (auto) Absolute Lymphs (auto) Absolute Monos (auto) Absolute Eos (auto) Absolute Basos (auto) Absolute Nucleated RBC Nucleated RBC % Sodium 135 Potassium 4.6 Chloride 95 L Carbon Dioxide 28 Anion Gap 12 H BUN 53 H Creatinine 8.03 H Est GFR ( Amer) 9.1 Est GFR (Non-Af Amer) 7.1 BUN/Creatinine Ratio 6.6 L Glucose 103 H POC Glucose (mg/dL) 110 H Calcium 9.3 Blood Type A Positive Antibody Screen Negative Crossmatch See Detail 05/09/17 05/09/17 11:08 16:59 WBC RBC Hgb Hct MCV MCH MCHC RDW Plt Count MPV Neut % (Auto) Lymph % (Auto) Bill[place] % (Auto) Eos % (Auto) Baso % (Auto) Absolute Neuts (auto) Absolute Lymphs (auto) Absolute Monos (auto) Absolute Eos (auto) Absolute Basos (auto) Absolute Nucleated RBC Nucleated RBC % Sodium Potassium Chloride Carbon Dioxide Anion Gap BUN Creatinine Est GFR ( Amer) Est GFR (Non-Af Amer) BUN/Creatinine Ratio Glucose POC Glucose (mg/dL) 123 H 123 H Calcium Blood Type Antibody Screen Crossmatch Microbiology and Other Data: Microbiology 05/07/17 12:40 Foot Left Skin and Soft Tissue MRSA/MSSA (PCR - Final Mrsa Negative S.aureus Negative 05/07/17 12:40 Foot Left Gram Stain - Final 05/07/17 12:40 Foot Left Wound Culture - Preliminary Enterococcus Faecalis Normal Tali 05/08/17 18:34 Stool Stool Occult Blood (RIVERA) - Final Assess/Plan/Problems-Billing Assessment: 52 yo male PMH ESRD, anemia with recent clean based gastric ulcer on PPI and H2B , DM, s/p right TMA and aborted left necrotic foot wound when hypoxic respiratory failure. Presents with hypoxic respiratory failure, hyperkalemia and volume overload improved with HD. Consults to Dr. Louis and ID. Entercoccous Faecalis again in the left foot. Leukocytosis resolved on cftx. Got 2u pRBC 05/09. Medically optimized for orthopedic surgery of left foot performed on 05/10 - Patient Problems (1) Acute respiratory failure with hypoxia Comment: resolved with HD and 4L off on 05/07. was 6L up per cryptologic technician operator/analyst. HD again on 05/09/17, now comfortable on RA.Had HD today again continue HD MWF while here. (2) Toe gangrene Comment: Necrotic left foot across previous amputation and extending into 1st toe. Culture growing Enterococcus Faecalis (again). Sensitive to amoxicillin, will d/c Ceftriaxone and start Amoxicillin s/p transtarsal amputation by Dr. Dyson on 05/10/16 (3) ESRD (end stage renal disease) Comment: HD MWF while inpatient. TThSa as outpatient. (4) Anemia Comment: clean based gastric ulcer on outpatient EGD 05/01. continue PPI, H2 [place]. poor retic produciton index in setting of infection. also lost a lot of weight in last year ~150 lbs. Also lost his suddenly in Dec. S/p 2u pRBC on 05/09/17 continue epogen with HD b12, folate okay in January. (5) Hypertension Comment: Norvasc 10mg, metoprolol 12.5mg BID. controlled (6) Diabetes Comment: Cont ISS, at home diet controlled. (7) Depression Comment: Pt's suddenly in December and expressed desire to veterinary attendant that he would like [facility]. Repairer Controller Tester consult ordered (8) DVT prophylaxis Comment: SCD's, no anticoagulation due to recent h/o ulcer and GI bleed Status and Disposition: medicine inpatient.
[2017-05-11] MEDS: Atorvastatin* 10 MG TAB PO SCH (17:15)
[2017-05-11] MEDS: Amoxicillin PO (*) 500 MG CAP PO SCH (17:15)
--- NOTE | 2017-05-11 17:39 | PN ---
Progress Note - Progress Note Date of Service: 05/11/17 SOAP: Subjective: Sreekanth is a 52 yo male, with PMH significant for ESRD on hemodialysis, DM, s/p right TMA and left necrotic foot wound with hypoxic respiratory failure. Foot growing Entercoccous Faecalis. S/P Chopart amputation with Dr. Dyson on . Patient states he is having significant pain throbbing, electric pain. Seen in inpatient dialysis. Denies any SOB, CP, chills, N/V. Objective: Vital Signs Temp 97.7 F 05/11/17 14:38 Pulse 88 05/11/17 14:38 Resp 16 05/11/17 17:19 BP 134/71 05/11/17 14:38 Pulse Ox 100 05/11/17 14:38 Intake & Output 05/10/17 05/11/17 05/11/17 18:59 06:59 18:59 Intake Total 387 200 480 Output Total 450 500 375 Balance -63 -300 105 Weight 237 lb 1.6 oz Intake: IV Fluids 287 0.45%NS 250 ABX - CEFTRIAXONE 37 Oral 100 200 480 Output: SYD #1 50 Urine 450 450 375 Other: Estimated Void Medium # Bowel Movements 0 0 # Voids 1 Laboratory Results - last 24 hr 05/10/17 05/11/17 05/11/17 19:33 06:22 06:22 WBC 11.3 H RBC 2.43 L Hgb 7.7 L Hct 23 L MCV 94 MCH 32 H MCHC 34 RDW 22 H Plt Count 364 MPV 7 L Neut % (Auto) 69.9 Lymph % (Auto) 15.4 L [place] % (Auto) 13.1 H Eos % (Auto) 1.0 Baso % (Auto) 0.6 Absolute Neuts (auto) 7.9 H Absolute Lymphs (auto) 1.7 Absolute Monos (auto) 1.5 H Absolute Eos (auto) 0.1 Absolute Basos (auto) 0.1 Absolute Nucleated RBC 0 Nucleated RBC % 0 Sodium 134 Potassium 4.4 Chloride 91 L Carbon Dioxide 29 Anion Gap 14 H BUN 48 H Creatinine 8.29 H Est GFR ( Amer) 8.8 Est GFR (Non-Af Amer) 6.8 BUN/Creatinine Ratio 5.8 L Glucose 99 POC Glucose (mg/dL) 131 H Calcium 9.3 05/11/17 05/11/17 05/11/17 07:31 11:43 16:29 WBC RBC Hgb Hct MCV MCH MCHC RDW Plt Count MPV Neut % (Auto) Lymph % (Auto) [place] % (Auto) Eos % (Auto) Baso % (Auto) Absolute Neuts (auto) Absolute Lymphs (auto) Absolute Monos (auto) Absolute Eos (auto) Absolute Basos (auto) Absolute Nucleated RBC Nucleated RBC % Sodium Potassium Chloride Carbon Dioxide Anion Gap BUN Creatinine Est GFR ( Amer) Est GFR (Non-Af Amer) BUN/Creatinine Ratio Glucose POC Glucose (mg/dL) 104 H 104 H 102 H Calcium General: WN, WD, NAD, sitting comfortably in chair, occasionally uncomfortable due to pain. LLE: Dressing C/D/I, no erythema in proximal calf. Able to move knee. Calf soft , non-tender. Sensation intact proximal to dressing. Popliteal pulse 2+. Assessment: PO day 1 s/p Chopart amputation left foot. Stable. Plan: 1. Trial of 100 mg BID gabapentin for pain 2. NWB LLE 3. PT/OT 4. Follow up with Dr. Dyson in clinic in 14 days 5. IV antibiotics per ID
[2017-05-11] MEDS: Gabapentin CAP(*) 100 MG PO SCH (21:43)
[2017-05-11] MEDS: CMCS:Melatonin (NF) 3 MG TAB PO SCH (21:44)
[2017-05-12] MEDS: oxyCODONE TAB* 5 MG TAB PO PRN ×3 (05:22→19:51)
[2017-05-12 06:14] LABS: ABS Basophils 0.1 10^3/ul (0-0.2); ABS Eosinophils 0.3 10^3/ul (0-0.6); ABS Lymphocytes 1.9 10^3/ul (1.0-4.8); ABS Monocytes 1.5 10^3/ul (0-0.8); ABS Neutrophils 4.5 10^3/ul (1.5-7.7); ABS Nucleated RBC 0 10^3/ul; Eosinophil % 3.2 % (0-6); Hematocrit 23 % (42-52); Hemoglobin 7.6 g/dl (14.0-18.0); Lymphocyte % 23.3 % (25-47); Mean Corpuscular HGB Conc 33 g/dl (31-36); Mean Corpuscular Hemoglobin 32 pg (27-31); Mean Corpuscular Volume 95 fL (80-94); Mean Platelet Volume 8 um3 (7.4-10.4); Nucleated Red Blood Cells % 0.1; Platelet Count 383 10^3/ul (150-450); Red Blood Count 2.38 10^6/ul (4.0-5.4); Red Cell Distribution Width 21 % (10.5-15); White Blood Count 8.2 10^3/ul (3.5-10.8)
[2017-05-12 06:25] LABS: EGFR Non-African American 8.2 (>60)
[2017-05-12] MEDS: Insulin LISPRO* 1 UNITS UNIT SUBCUT SCH (08:00)
[2017-05-12] MEDS: Sevelamer TAB* 800 MG PO SCH ×3 (08:10→17:04)
[2017-05-12] MEDS: Omeprazole CAP* 20 MG PO SCH ×2 (08:10→19:51)
[2017-05-12] MEDS: Famotidine TAB* 20 MG PO SCH (08:11)
[2017-05-12] MEDS: Gabapentin CAP(*) 100 MG PO SCH ×2 (08:11→19:50)
[2017-05-12] MEDS: amLODIPine TAB* 5 MG PO SCH (08:49)
[2017-05-12] MEDS: Metoprolol Tartrate TAB* 25 MG PO SCH ×2 (08:49→19:49)
[2017-05-12] MEDS: Amoxicillin PO (*) 500 MG CAP PO SCH (08:49)
--- NOTE | 2017-05-12 10:05 | PN ---
Subjective Date of Service: 05/12/17 Interval History: Pt feels well, pain is better controlled Objective Active Medications: Acetaminophen (Tylenol Tab*) 650 mg PO Q6H PRN PRN Reason: PAIN Last Admin: 05/10/17 08:26 Dose: 650 mg Amlodipine Besylate (Norvasc Tab*) 10 mg PO DAILY [facility] Last Admin: 05/12/17 08:49 Dose: 10 mg Amoxicillin (Amoxicillin Po (*)) 500 mg PO DAILY [facility] Last Admin: 05/12/17 08:49 Dose: 500 mg Atorvastatin Calcium (Lipitor*) 5 mg PO QPM [facility] Last Admin: 05/11/17 17:15 Dose: 5 mg Dextrose (D50w Syringe 50 Ml*) 12.5 gm IV PUSH .FOR FS < 60 - SS PRN PRN Reason: FS < 60 Famotidine (Pepcid Tab*) 20 mg PO DAILY [facility] Last Admin: 05/12/17 08:11 Dose: 20 mg Gabapentin (Neurontin Cap(*)) 100 mg PO BID [facility] Last Admin: 05/12/17 08:11 Dose: 100 mg Melatonin (Melatonin (Nf)) 3 mg PO BEDTIME [facility] Last Admin: 05/11/17 21:44 Dose: 3 mg Metoprolol Tartrate (Lopressor Tab*) 12.5 mg PO Q12HR [facility] Last Admin: 05/12/17 08:49 Dose: 12.5 mg Morphine Sulfate (Morphine Inj (Syringe)*) 2 mg IV Q4H PRN PRN Reason: PAIN Last Admin: 05/11/17 11:37 Dose: 2 mg Omeprazole (Prilosec Cap*) 20 mg PO BID [facility] Last Admin: 05/12/17 08:10 Dose: 20 mg Oxycodone HCl (Roxycodone Tab*) 5 mg PO Q4H PRN PRN Reason: PAIN Last Admin: 05/12/17 05:22 Dose: 5 mg Sevelamer Carbonate (Renvela Tab*) 1,600 mg PO TID WITH MEALS [facility] Last Admin: 05/12/17 08:10 Dose: 1,600 mg Vital Signs - 8 hr 05/12/17 05/12/17 05/12/17 03:37 05:22 08:11 Temperature 98.5 F Pulse Rate 68 Respiratory 16 16 14 Rate Blood Pressure 139/63 (mmHg) O2 Sat by Pulse 100 Oximetry 05/12/17 05/12/17 08:34 08:38 Temperature 98.5 F Pulse Rate 75 Respiratory 20 14 Rate Blood Pressure 110/59 (mmHg) O2 Sat by Pulse 100 Oximetry Oxygen Devices in Use Now: None Appearance: 52 yo m in nAD, AAOx3 Eyes: No Scleral Icterus, PERRLA Ears/Nose/Mouth/Throat: NL Teeth, Lips, Gums, Mucous Membranes Moist Neck: NL Appearance and Movements; NL JVP, Trachea Midline Respiratory: Symmetrical Chest Expansion and Respiratory Effort, Clear to Auscultation Cardiovascular: NL Sounds; No Murmurs; No JVD, RRR, No Edema Abdominal: NL Sounds; No Tenderness; No Distention Lymphatic: No Cervical Adenopathy Extremities: No Edema, No Clubbing, Cyanosis, - - R foot s/p remote TMA, left foot s/p transtarsal amputation in splint Skin: No Rash or Ulcers, No Nodules or Sclerosis, - - left foot dressings not removed, drain to left foot in place Neurological: Alert and Oriented x 3, NL Muscle Strength and Tone Result Diagrams: 05/12/17 05:44 05/12/17 05:44 Additional Lab and Data: Laboratory Results - last 24 hr 05/08/17 05/08/17 05/09/17 17:14 20:38 06:23 WBC 9.4 RBC 2.05 L Hgb 6.8 L Hct 20 L MCV 99 H MCH 33 H MCHC 34 RDW 16 H Plt Count 382 MPV 7 L Neut % (Auto) 61.7 Lymph % (Auto) 23.4 L Page % (Auto) 11.0 H Eos % (Auto) 3.1 Baso % (Auto) 0.8 Absolute Neuts (auto) 5.8 Absolute Lymphs (auto) 2.2 Absolute Monos (auto) 1.0 H Absolute Eos (auto) 0.3 Absolute Basos (auto) 0.1 Absolute Nucleated RBC 0 Nucleated RBC % 0 Sodium Potassium Chloride Carbon Dioxide Anion Gap BUN Creatinine Est GFR ( Amer) Est GFR (Non-Af Amer) BUN/Creatinine Ratio Glucose POC Glucose (mg/dL) 110 H 132 H Calcium Blood Type Antibody Screen Crossmatch 05/09/17 05/09/17 05/09/17 06:23 06:23 07:58 WBC RBC Hgb Hct MCV MCH MCHC RDW Plt Count MPV Neut % (Auto) Lymph % (Auto) Page % (Auto) Eos % (Auto) Baso % (Auto) Absolute Neuts (auto) Absolute Lymphs (auto) Absolute Monos (auto) Absolute Eos (auto) Absolute Basos (auto) Absolute Nucleated RBC Nucleated RBC % Sodium 135 Potassium 4.6 Chloride 95 L Carbon Dioxide 28 Anion Gap 12 H BUN 53 H Creatinine 8.03 H Est GFR ( Amer) 9.1 Est GFR (Non-Af Amer) 7.1 BUN/Creatinine Ratio 6.6 L Glucose 103 H POC Glucose (mg/dL) 110 H Calcium 9.3 Blood Type A Positive Antibody Screen Negative Crossmatch See Detail 05/09/17 05/09/17 11:08 16:59 WBC RBC Hgb Hct MCV MCH MCHC RDW Plt Count MPV Neut % (Auto) Lymph % (Auto) Page % (Auto) Eos % (Auto) Baso % (Auto) Absolute Neuts (auto) Absolute Lymphs (auto) Absolute Monos (auto) Absolute Eos (auto) Absolute Basos (auto) Absolute Nucleated RBC Nucleated RBC % Sodium Potassium Chloride Carbon Dioxide Anion Gap BUN Creatinine Est GFR ( Amer) Est GFR (Non-Af Amer) BUN/Creatinine Ratio Glucose POC Glucose (mg/dL) 123 H 123 H Calcium Blood Type Antibody Screen Crossmatch Microbiology and Other Data: Microbiology 05/07/17 12:40 Foot Left Skin and Soft Tissue MRSA/MSSA (PCR - Final Mrsa Negative S.aureus Negative 05/07/17 12:40 Foot Left Gram Stain - Final 05/07/17 12:40 Foot Left Wound Culture - Preliminary Enterococcus Faecalis Normal Tali 05/08/17 18:34 Stool Stool Occult Blood (RIVERA) - Final Assess/Plan/Problems-Billing Assessment: 52 yo male PMH ESRD, anemia with recent clean based gastric ulcer on PPI and H2B , DM, s/p right TMA and aborted left necrotic foot wound when hypoxic respiratory failure. Presents with hypoxic respiratory failure, hyperkalemia and volume overload improved with HD. Consults to Dr. Louis and ID. Entercoccous Faecalis again in the left foot. Leukocytosis resolved on cftx. Got 2u pRBC 05/09. Medically optimized for orthopedic surgery of left foot performed on 05/10 - Patient Problems (1) Acute respiratory failure with hypoxia Comment: resolved with HD and 4L off on 05/07. was 6L up per echo technician. Now on RA, comfortable continue HD MWF while here. (2) Toe gangrene Comment: Necrotic left foot across previous amputation and extending into 1st toe. Culture growing Enterococcus Faecalis (again). Ceftriaxone d/c'd and Amoxicillin started on 05/11/17-plan to cont it daily x 2 weeks s/p transtarsal amputation by Dr. Dyson on 05/10/16. Plan to go to [facility] on Sunday. DRain to left foot still in place (3) ESRD (end stage renal disease) Comment: HD MWF while inpatient. TThSa as outpatient. (4) Anemia Comment: clean based gastric ulcer on outpatient EGD 05/01. continue PPI, H2 [place]. poor retic produciton index in setting of infection. also lost a lot of weight in last year ~150 lbs. Also lost his suddenly in Dec. S/p 2u pRBC on 05/09/17 continue epogen with HD b12, folate okay in January. (5) Hypertension Comment: Norvasc 10mg, metoprolol 12.5mg BID. controlled (6) Diabetes Comment: diet controlled. (7) Depression Comment: Pt's suddenly in December and expressed desire to manager system that he would like to talk to grievence counselor. Salvage Mend Worker consult ordered (8) DVT prophylaxis Comment: SCD's, no anticoagulation due to recent h/o ulcer and GI bleed Status and Disposition: medicine inpatient.
--- NOTE | 2017-05-12 10:25 | PN ---
Progress Note - Progress Note Date of Service: 05/12/17 SOAP: Subjective: POD#2 Left foot TMA. Doing ok, pain improving. Denies CP/SOB, f/c. Objective: Vitals: Temp Pulse Resp BP Pulse Ox 98.5 F 75 14 110/59 100 05/12/17 08:34 05/12/17 08:34 05/12/17 08:38 05/12/17 08:34 05/12/17 08:34 Gen: A&Ox3, NAD sitting at bedside LLE: Dressing and splint C/D/I. SYD drain with about 20cc s/s drainage. Labs: Laboratory Results - last 24 hr 05/11/17 05/11/17 05/11/17 11:43 16:29 21:25 WBC RBC Hgb Hct MCV MCH MCHC RDW Plt Count MPV Neut % (Auto) Lymph % (Auto) [place] % (Auto) Eos % (Auto) Baso % (Auto) Absolute Neuts (auto) Absolute Lymphs (auto) Absolute Monos (auto) Absolute Eos (auto) Absolute Basos (auto) Absolute Nucleated RBC Nucleated RBC % Sodium Potassium Chloride Carbon Dioxide Anion Gap BUN Creatinine Est GFR ( Amer) Est GFR (Non-Af Amer) BUN/Creatinine Ratio Glucose POC Glucose (mg/dL) 104 H 102 H 113 H Calcium 05/12/17 05/12/17 05/12/17 05:44 05:44 07:53 WBC 8.2 RBC 2.38 L Hgb 7.6 L Hct 23 L MCV 95 H MCH 32 H MCHC 33 RDW 21 H Plt Count 383 MPV 8 Neut % (Auto) 54.4 Lymph % (Auto) 23.3 L [place] % (Auto) 18.0 H Eos % (Auto) 3.2 Baso % (Auto) 1.1 Absolute Neuts (auto) 4.5 Absolute Lymphs (auto) 1.9 Absolute Monos (auto) 1.5 H Absolute Eos (auto) 0.3 Absolute Basos (auto) 0.1 Absolute Nucleated RBC 0 Nucleated RBC % 0.1 Sodium 130 L Potassium 4.7 Chloride 88 L Carbon Dioxide 30 Anion Gap 12 H BUN 35 H Creatinine 7.05 H Est GFR ( Amer) 10.6 Est GFR (Non-Af Amer) 8.2 BUN/Creatinine Ratio 5.0 L Glucose 86 POC Glucose (mg/dL) 105 H Calcium 9.5 Assessment: POD #2 Left foot TMA Plan: SYD drain removed today Cont PT/OT Dressing change in next day or two
[2017-05-12] MEDS: Atorvastatin* 10 MG TAB PO SCH (17:04)
[2017-05-12] MEDS: CMCS:Melatonin (NF) 3 MG TAB PO SCH (19:51)
[2017-05-12] MEDS: Morphine INJ* 2 MG/ML 1 ML CARPUJECT IV PRN (22:19)
[2017-05-13] MEDS: oxyCODONE TAB* 5 MG TAB PO PRN ×2 (01:44→08:24)
[2017-05-13] MEDS: Acetaminophen TAB* 325 MG PO PRN ×2 (01:44→08:23)
[2017-05-13] MEDS: Morphine INJ* 2 MG/ML 1 ML CARPUJECT IV PRN (04:22)
[2017-05-13] MEDS: Amoxicillin PO (*) 500 MG CAP PO SCH (08:22)
[2017-05-13] MEDS: amLODIPine TAB* 5 MG PO SCH (08:23)
[2017-05-13] MEDS: Sevelamer TAB* 800 MG PO SCH ×3 (08:23→18:02)
[2017-05-13] MEDS: Gabapentin CAP(*) 100 MG PO SCH ×2 (08:24→19:32)
[2017-05-13] MEDS: Omeprazole CAP* 20 MG PO SCH ×2 (08:25→19:33)
[2017-05-13] MEDS: Metoprolol Tartrate TAB* 25 MG PO SCH ×2 (08:25→19:33)
[2017-05-13] MEDS: Famotidine TAB* 20 MG PO SCH (08:25)
--- NOTE | 2017-05-13 13:32 | PN ---
Subjective Date of Service: 05/13/17 Interval History: Pt feels fine, c/o left leg pain that is improving Objective Active Medications: Acetaminophen (Tylenol Tab*) 650 mg PO Q6H PRN PRN Reason: PAIN Last Admin: 05/13/17 08:23 Dose: 650 mg Amlodipine Besylate (Norvasc Tab*) 10 mg PO DAILY [facility] Last Admin: 05/13/17 08:23 Dose: 10 mg Amoxicillin (Amoxicillin Po (*)) 500 mg PO DAILY [facility] Last Admin: 05/13/17 08:22 Dose: 500 mg Atorvastatin Calcium (Lipitor*) 5 mg PO QPM [facility] Last Admin: 05/12/17 17:04 Dose: 5 mg Dextrose (D50w Syringe 50 Ml*) 12.5 gm IV PUSH .FOR FS < 60 - SS PRN PRN Reason: FS < 60 Famotidine (Pepcid Tab*) 20 mg PO DAILY [facility] Last Admin: 05/13/17 08:25 Dose: 20 mg Gabapentin (Neurontin Cap(*)) 100 mg PO BID [facility] Last Admin: 05/13/17 08:24 Dose: 100 mg Melatonin (Melatonin (Nf)) 3 mg PO BEDTIME [facility] Last Admin: 05/12/17 19:51 Dose: 3 mg Metoprolol Tartrate (Lopressor Tab*) 12.5 mg PO Q12HR [facility] Last Admin: 05/13/17 08:25 Dose: 12.5 mg Morphine Sulfate (Morphine Inj (Syringe)*) 2 mg IV Q4H PRN PRN Reason: PAIN Last Admin: 05/13/17 04:22 Dose: 2 mg Omeprazole (Prilosec Cap*) 20 mg PO BID [facility] Last Admin: 05/13/17 08:25 Dose: 20 mg Oxycodone HCl (Roxycodone Tab*) 5 mg PO Q4H PRN PRN Reason: PAIN Last Admin: 05/13/17 08:24 Dose: 5 mg Sevelamer Carbonate (Renvela Tab*) 1,600 mg PO TID WITH MEALS [facility] Last Admin: 05/13/17 12:19 Dose: 1,600 mg Vital Signs - 8 hr 05/13/17 05/13/17 05/13/17 05:32 07:37 08:24 Respiratory 18 18 16 Rate 05/13/17 11:15 Respiratory 18 Rate Oxygen Devices in Use Now: None Appearance: 52 yo F in nAD, AAOx3 Eyes: No Scleral Icterus, PERRLA Ears/Nose/Mouth/Throat: NL Teeth, Lips, Gums, Mucous Membranes Moist Neck: NL Appearance and Movements; NL JVP, Trachea Midline Respiratory: Symmetrical Chest Expansion and Respiratory Effort, Clear to Auscultation Cardiovascular: NL Sounds; No Murmurs; No JVD, RRR Abdominal: NL Sounds; No Tenderness; No Distention, No Hepatosplenomegaly Lymphatic: No Cervical Adenopathy Extremities: No Edema, No Clubbing, Cyanosis, - - left foot in splint, s/p transmetatarsal amputation, r foot s/p TMA Skin: - - left foot in post op splint-dressings not removed Neurological: Alert and Oriented x 3, NL Muscle Strength and Tone Result Diagrams: 05/12/17 05:44 05/13/17 05:37 Additional Lab and Data: Laboratory Results - last 24 hr 05/08/17 05/08/17 05/09/17 17:14 20:38 06:23 WBC 9.4 RBC 2.05 L Hgb 6.8 L Hct 20 L MCV 99 H MCH 33 H MCHC 34 RDW 16 H Plt Count 382 MPV 7 L Neut % (Auto) 61.7 Lymph % (Auto) 23.4 L [place] % (Auto) 11.0 H Eos % (Auto) 3.1 Baso % (Auto) 0.8 Absolute Neuts (auto) 5.8 Absolute Lymphs (auto) 2.2 Absolute Monos (auto) 1.0 H Absolute Eos (auto) 0.3 Absolute Basos (auto) 0.1 Absolute Nucleated RBC 0 Nucleated RBC % 0 Sodium Potassium Chloride Carbon Dioxide Anion Gap BUN Creatinine Est GFR ( Amer) Est GFR (Non-Af Amer) BUN/Creatinine Ratio Glucose POC Glucose (mg/dL) 110 H 132 H Calcium Blood Type Antibody Screen Crossmatch 05/09/17 05/09/17 05/09/17 06:23 06:23 07:58 WBC RBC Hgb Hct MCV MCH MCHC RDW Plt Count MPV Neut % (Auto) Lymph % (Auto) [place] % (Auto) Eos % (Auto) Baso % (Auto) Absolute Neuts (auto) Absolute Lymphs (auto) Absolute Monos (auto) Absolute Eos (auto) Absolute Basos (auto) Absolute Nucleated RBC Nucleated RBC % Sodium 135 Potassium 4.6 Chloride 95 L Carbon Dioxide 28 Anion Gap 12 H BUN 53 H Creatinine 8.03 H Est GFR ( Amer) 9.1 Est GFR (Non-Af Amer) 7.1 BUN/Creatinine Ratio 6.6 L Glucose 103 H POC Glucose (mg/dL) 110 H Calcium 9.3 Blood Type A Positive Antibody Screen Negative Crossmatch See Detail 05/09/17 05/09/17 11:08 16:59 WBC RBC Hgb Hct MCV MCH MCHC RDW Plt Count MPV Neut % (Auto) Lymph % (Auto) [place] % (Auto) Eos % (Auto) Baso % (Auto) Absolute Neuts (auto) Absolute Lymphs (auto) Absolute Monos (auto) Absolute Eos (auto) Absolute Basos (auto) Absolute Nucleated RBC Nucleated RBC % Sodium Potassium Chloride Carbon Dioxide Anion Gap BUN Creatinine Est GFR ( Amer) Est GFR (Non-Af Amer) BUN/Creatinine Ratio Glucose POC Glucose (mg/dL) 123 H 123 H Calcium Blood Type Antibody Screen Crossmatch Microbiology and Other Data: Microbiology 05/07/17 12:40 Foot Left Skin and Soft Tissue MRSA/MSSA (PCR - Final Mrsa Negative S.aureus Negative 05/07/17 12:40 Foot Left Gram Stain - Final 05/07/17 12:40 Foot Left Wound Culture - Preliminary Enterococcus Faecalis Normal Tali 05/08/17 18:34 Stool Stool Occult Blood (RIVERA) - Final Assess/Plan/Problems-Billing Assessment: 52 yo male PMH ESRD, anemia with recent clean based gastric ulcer on PPI and H2B , DM, s/p right TMA and aborted left necrotic foot wound when hypoxic respiratory failure. Presents with hypoxic respiratory failure, hyperkalemia and volume overload improved with HD. Consults to Dr. Louis and ID. Entercoccous Faecalis again in the left foot. Leukocytosis resolved on cftx. Got 2u pRBC 05/09. Medically optimized for orthopedic surgery of left foot performed on 05/10 - Patient Problems (1) Acute respiratory failure with hypoxia Comment: resolved with HD and 4L off on 05/07. was 6L up per video game repair technician. Now on RA, comfortable continue HD MWF while here. (2) Toe gangrene Comment: Necrotic left foot across previous amputation and extending into 1st toe. Culture growing Enterococcus Faecalis (again). Ceftriaxone d/c'd and Amoxicillin started on 05/11/17-plan to cont it daily x 2 weeks s/p transtarsal amputation by Dr. Dyson on 05/10/16. Plan to go to [facility] on Sunday. (3) ESRD (end stage renal disease) Comment: HD MWF while inpatient. TThSa as outpatient. (4) Anemia Comment: gastric ulcer on outpatient EGD 05/01. continue PPI, H2 [place]. poor retic produciton index in setting of infection. also lost a lot of weight in last year ~150 lbs. Also lost his suddenly in Dec. S/p 2u pRBC on 05/09/17 continue epogen with HD b12, folate okay in January. (5) Hypertension Comment: Norvasc 10mg, metoprolol 12.5mg BID. controlled (6) Diabetes Comment: diet controlled. (7) Depression Comment: Pt's suddenly in December and expressed desire to animal treatment investigator that he would like to talk to [place] [facility] counselor. Financial Service Rep consult ordered (8) DVT prophylaxis Comment: SCD's, no anticoagulation due to recent h/o ulcer and GI bleed Status and Disposition: medicine inpatient.
[2017-05-13] MEDS ORDERED: Senna TAB PO ONE (15:08)
[2017-05-13] MEDS: Atorvastatin* 10 MG TAB PO SCH (18:01)
[2017-05-13] MEDS: Docusate CAP* 100 MG PO SCH (19:31)
[2017-05-13] MEDS: Senna TAB PO SCH (19:31)
[2017-05-13] MEDS: CMCS:Melatonin (NF) 3 MG TAB PO SCH (19:38)
--- NOTE | 2017-05-13 20:41 | PN ---
PROGRESS NOTE: DATE OF SERVICE: 05/13/17 HISTORY: Sreekanth is now 3 days out from his left midtarsal amputation. His pain is mild to moderate. He is sitting up in his chair. He is in no acute distress. Appears not to be febrile, diaphoretic or in any distress. His labs have been stable. White count improving now, down to 8.2. His hematocrit is low, but stable at 23. His glucose has been in the reasonable range as well in the low 100s. Sreekanth could have a dressing change tomorrow to check the condition of the postoperative wound. He is to be nonweightbearing and continue elevating the foot. Plan is to go to rehab and that placement will be occurring during the next week. [id number]/[facility] #: [id number] CRESCENCIO
[2017-05-14] MEDS: oxyCODONE TAB* 5 MG TAB PO PRN ×5 (00:29→23:16)
[2017-05-14] MEDS: Acetaminophen TAB* 325 MG PO PRN ×3 (00:29→13:54)
[2017-05-14] MEDS: Morphine INJ* 2 MG/ML 1 ML CARPUJECT IV PRN (02:55)
[2017-05-14] MEDS: Sevelamer TAB* 800 MG PO SCH ×3 (07:52→17:26)
[2017-05-14] MEDS ORDERED: Magnesium CITRATE* 300 ML BTL PO ONE ×2 (10:21→16:00)
--- NOTE | 2017-05-14 10:25 | PN ---
Subjective Date of Service: 05/14/17 Interval History: pt's post op pain is improving every day. Has not had a BM x 4-5 days Objective Active Medications: Acetaminophen (Tylenol Tab*) 650 mg PO Q6H PRN PRN Reason: PAIN Last Admin: 05/14/17 07:52 Dose: 650 mg Amlodipine Besylate (Norvasc Tab*) 10 mg PO DAILY [facility] Last Admin: 05/13/17 08:23 Dose: 10 mg Amoxicillin (Amoxicillin Po (*)) 500 mg PO DAILY [facility] Last Admin: 05/13/17 08:22 Dose: 500 mg Atorvastatin Calcium (Lipitor*) 5 mg PO QPM [facility] Last Admin: 05/13/17 18:01 Dose: 5 mg Dextrose (D50w Syringe 50 Ml*) 12.5 gm IV PUSH .FOR FS < 60 - SS PRN PRN Reason: FS < 60 Docusate Sodium (Colace Cap*) 100 mg PO BID [facility] Last Admin: 05/13/17 19:31 Dose: 100 mg Famotidine (Pepcid Tab*) 20 mg PO DAILY [facility] Last Admin: 05/13/17 08:25 Dose: 20 mg Gabapentin (Neurontin Cap(*)) 100 mg PO BID [facility] Last Admin: 05/13/17 19:32 Dose: 100 mg Melatonin (Melatonin (Nf)) 3 mg PO BEDTIME [facility] Last Admin: 05/13/17 19:38 Dose: 3 mg Metoprolol Tartrate (Lopressor Tab*) 12.5 mg PO Q12HR [facility] Last Admin: 05/13/17 19:33 Dose: 12.5 mg Morphine Sulfate (Morphine Inj (Syringe)*) 2 mg IV Q4H PRN PRN Reason: PAIN Last Admin: 05/14/17 02:55 Dose: 2 mg Omeprazole (Prilosec Cap*) 20 mg PO BID [facility] Last Admin: 05/13/17 19:33 Dose: 20 mg Oxycodone HCl (Roxycodone Tab*) 5 mg PO Q4H PRN PRN Reason: PAIN Last Admin: 05/14/17 09:50 Dose: 5 mg Senna (Senokot Tab*) 2 tab PO BEDTIME [facility] Last Admin: 05/13/17 19:31 Dose: 2 tab Sevelamer Carbonate (Renvela Tab*) 1,600 mg PO TID WITH MEALS [facility] Last Admin: 05/14/17 07:52 Dose: 1,600 mg Vital Signs - 8 hr 05/14/17 05/14/17 05/14/17 02:30 02:55 03:55 Temperature Pulse Rate Respiratory 18 18 15 Rate Blood Pressure (mmHg) O2 Sat by Pulse Oximetry 05/14/17 05/14/17 05/14/17 04:20 07:13 07:49 Temperature 99.2 F 98.7 F 98.4 F Pulse Rate 61 64 75 Respiratory 16 16 18 Rate Blood Pressure 105/57 107/52 115/65 (mmHg) O2 Sat by Pulse 98 100 Oximetry 05/14/17 05/14/17 08:00 09:50 Temperature Pulse Rate Respiratory 16 16 Rate Blood Pressure (mmHg) O2 Sat by Pulse Oximetry Oxygen Devices in Use Now: None Appearance: 52 yo M in nAD, aAOx3 Eyes: No Scleral Icterus, PERRLA Ears/Nose/Mouth/Throat: NL Teeth, Lips, Gums, Mucous Membranes Moist Neck: NL Appearance and Movements; NL JVP, Trachea Midline Respiratory: Symmetrical Chest Expansion and Respiratory Effort, Clear to Auscultation Cardiovascular: RRR, - - 2/6 SHANNAN at apex Abdominal: NL Sounds; No Tenderness; No Distention, No Hepatosplenomegaly Lymphatic: No Cervical Adenopathy Extremities: No Edema, No Clubbing, Cyanosis, - - left ankle in splint, r foot s /p TMA Skin: No Rash or Ulcers, No Nodules or Sclerosis, - - left foot not undressed from post op dressings Neurological: Alert and Oriented x 3, NL Muscle Strength and Tone Result Diagrams: 05/12/17 05:44 05/13/17 05:37 Additional Lab and Data: Laboratory Results - last 24 hr 05/08/17 05/08/17 05/09/17 17:14 20:38 06:23 WBC 9.4 RBC 2.05 L Hgb 6.8 L Hct 20 L MCV 99 H MCH 33 H MCHC 34 RDW 16 H Plt Count 382 MPV 7 L Neut % (Auto) 61.7 Lymph % (Auto) 23.4 L [place] % (Auto) 11.0 H Eos % (Auto) 3.1 Baso % (Auto) 0.8 Absolute Neuts (auto) 5.8 Absolute Lymphs (auto) 2.2 Absolute Monos (auto) 1.0 H Absolute Eos (auto) 0.3 Absolute Basos (auto) 0.1 Absolute Nucleated RBC 0 Nucleated RBC % 0 Sodium Potassium Chloride Carbon Dioxide Anion Gap BUN Creatinine Est GFR ( Amer) Est GFR (Non-Af Amer) BUN/Creatinine Ratio Glucose POC Glucose (mg/dL) 110 H 132 H Calcium Blood Type Antibody Screen Crossmatch 05/09/17 05/09/17 05/09/17 06:23 06:23 07:58 WBC RBC Hgb Hct MCV MCH MCHC RDW Plt Count MPV Neut % (Auto) Lymph % (Auto) [place] % (Auto) Eos % (Auto) Baso % (Auto) Absolute Neuts (auto) Absolute Lymphs (auto) Absolute Monos (auto) Absolute Eos (auto) Absolute Basos (auto) Absolute Nucleated RBC Nucleated RBC % Sodium 135 Potassium 4.6 Chloride 95 L Carbon Dioxide 28 Anion Gap 12 H BUN 53 H Creatinine 8.03 H Est GFR ( Amer) 9.1 Est GFR (Non-Af Amer) 7.1 BUN/Creatinine Ratio 6.6 L Glucose 103 H POC Glucose (mg/dL) 110 H Calcium 9.3 Blood Type A Positive Antibody Screen Negative Crossmatch See Detail 05/09/17 05/09/17 11:08 16:59 WBC RBC Hgb Hct MCV MCH MCHC RDW Plt Count MPV Neut % (Auto) Lymph % (Auto) [place] % (Auto) Eos % (Auto) Baso % (Auto) Absolute Neuts (auto) Absolute Lymphs (auto) Absolute Monos (auto) Absolute Eos (auto) Absolute Basos (auto) Absolute Nucleated RBC Nucleated RBC % Sodium Potassium Chloride Carbon Dioxide Anion Gap BUN Creatinine Est GFR ( Amer) Est GFR (Non-Af Amer) BUN/Creatinine Ratio Glucose POC Glucose (mg/dL) 123 H 123 H Calcium Blood Type Antibody Screen Crossmatch Microbiology and Other Data: Microbiology 05/07/17 12:40 Foot Left Skin and Soft Tissue MRSA/MSSA (PCR - Final Mrsa Negative S.aureus Negative 05/07/17 12:40 Foot Left Gram Stain - Final 05/07/17 12:40 Foot Left Wound Culture - Preliminary Enterococcus Faecalis Normal Tali 05/08/17 18:34 Stool Stool Occult Blood (RIVERA) - Final Assess/Plan/Problems-Billing Assessment: 52 yo male PMH ESRD, anemia with recent clean based gastric ulcer on PPI and H2B , DM, s/p right TMA and aborted left necrotic foot wound when hypoxic respiratory failure. Presents with hypoxic respiratory failure, hyperkalemia and volume overload improved with HD. Consults to Dr. Louis and ID. Entercoccous Faecalis again in the left foot. Leukocytosis resolved on cftx. Got 2u pRBC 05/09. Medically optimized for orthopedic surgery of left foot performed on 05/10 - Patient Problems (1) Acute respiratory failure with hypoxia Comment: resolved with HD and 4L off on 05/07. was 6L up per military technology manager. Now on RA, comfortable continue HD MWF while here. (2) Toe gangrene Comment: Necrotic left foot across previous amputation and extending into 1st toe. Culture growing Enterococcus Faecalis (again). Ceftriaxone d/c'd and Amoxicillin started on 05/11/17-plan to cont it daily x 2 weeks s/p transtarsal amputation by Dr. Dyson on 05/10/16. Plan to go to [facility] today or tomorrow (3) ESRD (end stage renal disease) Comment: HD MWF while inpatient. TThSa as outpatient. (4) Anemia Comment: gastric ulcer on outpatient EGD 05/01. continue PPI, H2 [place]. poor retic produciton index in setting of infection. also lost a lot of weight in last year ~150 lbs. Also lost his suddenly in Dec. S/p 2u pRBC on 05/09/17 continue epogen with HD b12, folate okay in January. (5) Hypertension Comment: Norvasc 10mg, metoprolol 12.5mg BID. controlled (6) Diabetes Comment: diet controlled. (7) Depression Comment: Pt's suddenly in December and expressed desire to integrated specialist that he would like to talk to grkeirace counselor. Assistant Activities Director consult ordered (8) DVT prophylaxis Comment: SCD's, no anticoagulation due to recent h/o ulcer and GI bleed Status and Disposition: medicine inpatient.
--- NOTE | 2017-05-14 12:01 | PN ---
Progress Note - Progress Note Date of Service: 05/14/17 SOAP: Subjective: POD #4 s/p TMA. Pain improving. Denies CP, SOB, F/C. Objective: Vital Signs Temp 98.4 F 05/14/17 07:49 Pulse 75 05/14/17 07:49 Resp 16 05/14/17 09:50 BP 115/65 05/14/17 07:49 Pulse Ox 100 05/14/17 07:13 Intake & Output 05/13/17 05/14/17 05/14/17 18:59 06:59 18:59 Intake Total 1520 0 120 Output Total 300 0 Balance 1220 0 120 Weight 232 lb 6.4 oz 239 lb 1.6 oz Intake: Oral 1520 0 120 Output: Urine 300 0 Other: Estimated Void Medium # Bowel Movements 0 General: WN, WD, NAD, sitting comfortably in chair. Normal mood and affect. LLE: Dressing C/D/I, no erythema, warmth proximal to splint. Palpable popliteal pulse. Sensation intact proximally. Assessment: POD #4 s/p TMA. Plan: 1. Continue PT/OT 2. Dressing change planned for today 3. Plan to discharge to SNF when bed available.
[2017-05-14] MEDS ORDERED: Epoetin Alfa* 10,000 UNITS/ML VIAL IV ONE (13:00)
[2017-05-14] MEDS: Docusate CAP* 100 MG PO SCH ×2 (13:38→21:12)
[2017-05-14] MEDS: Omeprazole CAP* 20 MG PO SCH ×2 (15:42→21:12)
[2017-05-14] MEDS: Famotidine TAB* 20 MG PO SCH (15:43)
[2017-05-14] MEDS: Amoxicillin PO (*) 500 MG CAP PO SCH (15:43)
[2017-05-14] MEDS: Gabapentin CAP(*) 100 MG PO SCH ×2 (15:43→21:11)
[2017-05-14] MEDS: Metoprolol Tartrate TAB* 25 MG PO SCH ×2 (15:44→21:11)
[2017-05-14] MEDS: amLODIPine TAB* 5 MG PO SCH (15:49)
[2017-05-14] MEDS: Atorvastatin* 10 MG TAB PO SCH (17:26)
[2017-05-14] MEDS: Senna TAB PO SCH (21:12)
[2017-05-14] MEDS: CMCS:Melatonin (NF) 3 MG TAB PO SCH (23:16)
[2017-05-15] MEDS: Sevelamer TAB* 800 MG PO SCH ×3 (08:25→17:19)
[2017-05-15] MEDS: Omeprazole CAP* 20 MG PO SCH ×2 (08:25→20:57)
[2017-05-15] MEDS: Metoprolol Tartrate TAB* 25 MG PO SCH ×2 (08:25→20:57)
[2017-05-15] MEDS: Gabapentin CAP(*) 100 MG PO SCH ×2 (08:25→20:57)
[2017-05-15] MEDS: amLODIPine TAB* 5 MG PO SCH (08:25)
[2017-05-15] MEDS: Docusate CAP* 100 MG PO SCH ×2 (08:25→20:56)
[2017-05-15] MEDS: Famotidine TAB* 20 MG PO SCH (08:25)
[2017-05-15] MEDS: Amoxicillin PO (*) 500 MG CAP PO SCH (09:13)
[2017-05-15] MEDS: oxyCODONE TAB* 5 MG TAB PO PRN ×2 (10:31→14:32)
[2017-05-15] MEDS: Acetaminophen TAB* 325 MG PO PRN ×2 (11:24→20:56)
[2017-05-15] MEDS: Morphine INJ* 2 MG/ML 1 ML CARPUJECT IV PRN (11:24)
--- NOTE | 2017-05-15 14:17 | PN ---
Progress Note - Progress Note Date of Service: 05/15/17 SOAP: Subjective: []Patient seen OOB in chair. He feels well with no LLE pain. Denies CP, SOB. Objective: [] Vital Signs Temp 98.9 F 05/15/17 11:22 Pulse 67 05/15/17 11:22 Resp 20 05/15/17 12:18 BP 130/60 05/15/17 11:22 Pulse Ox 98 05/15/17 11:22 Intake & Output 05/14/17 05/15/17 05/15/17 18:59 06:59 18:59 Intake Total 520 440 Output Total 0 Balance 520 440 Weight 240 lb 12.8 oz Intake: Oral 520 440 Output: Urine 0 Other: Estimated Void Medium # Bowel Movements 0 # Voids 0 Laboratory Last Values WBC 8.2 10^3/ul (3.5-10.8) 05/12/17 05:44 RBC 2.38 10^6/ul (4.0-5.4) L 05/12/17 05:44 RBC (Retic) 2.12 10^6/ul (4.6-6.2) L D 05/07/17 08:20 Hgb 7.6 g/dl (14.0-18.0) L 05/12/17 05:44 Hct 23 % (42-52) L 05/12/17 05:44 HCT (Retic) 22 % (42-52) L 05/07/17 08:20 MCV 95 fL (80-94) H 05/12/17 05:44 MCH 32 pg (27-31) H 05/12/17 05:44 MCHC 33 g/dl (31-36) 05/12/17 05:44 RDW 21 % (10.5-15) H 05/12/17 05:44 Plt Count 383 10^3/ul (150-450) 05/12/17 05:44 MPV 8 um3 (7.4-10.4) 05/12/17 05:44 Neut % (Auto) 54.4 % (38-83) 05/12/17 05:44 Lymph % (Auto) 23.3 % (25-47) L 05/12/17 05:44 Mccone % (Auto) 18.0 % (0-7) H 05/12/17 05:44 Eos % (Auto) 3.2 % (0-6) 05/12/17 05:44 Baso % (Auto) 1.1 % (0-2) 05/12/17 05:44 Absolute Neuts (auto) 4.5 10^3/ul (1.5-7.7) 05/12/17 05:44 Absolute Lymphs (auto) 1.9 10^3/ul (1.0-4.8) 05/12/17 05:44 Absolute Monos (auto) 1.5 10^3/ul (0-0.8) H 05/12/17 05:44 Absolute Eos (auto) 0.3 10^3/ul (0-0.6) 05/12/17 05:44 Absolute Basos (auto) 0.1 10^3/ul (0-0.2) 05/12/17 05:44 Absolute Nucleated RBC 0 10^3/ul 05/12/17 05:44 Neutrophils % 68 % (38-83) 05/07/17 08:20 Lymphocytes % 22 % (25-47) L 05/07/17 08:20 Monocytes % 7 % (0-7) 05/07/17 08:20 Eosinophils % 2 % (0-6) 05/07/17 08:20 Basophils % 1 % (0-2) 05/07/17 08:20 Nucleated RBC % 0.1 05/12/17 05:44 Abs Neuts (Manual) 12.1 10^3/ul (1.5-7.7) H 05/07/17 08:20 Abs Monocytes (Manual) 1.2 10^3/ul (0-0.8) H 05/07/17 08:20 Absolute Eos (Manual) 0.4 10^3/ul (0-0.6) 05/07/17 08:20 Abs Basophils (Manual) 0.2 10^3/ul (0-0.2) 05/07/17 08:20 Normal RBC Morphology Not Reportable 05/07/17 08:20 Polychromasia 1+ 05/07/17 08:20 Hypochromasia 1+ 05/07/17 08:20 Retic Count, Calc 3.4 % (0.5-1.5) H 05/07/17 08:20 Corrected Retic Count 1.7 % (0.5-1.5) H 05/07/17 08:20 Retic Shift Factor 2.0 05/07/17 08:20 Retic Production Index 0.90 05/07/17 08:20 Immature Retic Fraction 0.65 05/07/17 08:20 Mean Retic Volume 124.9 05/07/17 08:20 INR (Anticoag Therapy) 1.17 (0.77-1.02) H 05/10/17 05:02 Sodium 131 mmol/L (133-145) L 05/13/17 05:37 Potassium 4.4 mmol/L (3.5-5.0) 05/13/17 05:37 Chloride 89 mmol/L (101-111) L 05/13/17 05:37 Carbon Dioxide 29 mmol/L (22-32) 05/13/17 05:37 Anion Gap 13 mmol/L (2-11) H 05/13/17 05:37 BUN 48 mg/dL (6-24) H 05/13/17 05:37 Creatinine 9.21 mg/dL (0.67-1.17) H 05/13/17 05:37 Est GFR ( Amer) 7.8 (>60) 05/13/17 05:37 Est GFR (Non-Af Amer) 6.0 (>60) 05/13/17 05:37 BUN/Creatinine Ratio 5.2 (8-20) L 05/13/17 05:37 Glucose 93 mg/dL (70-100) 05/13/17 05:37 POC Glucose (mg/dL) 105 mg/dL (70-100) H 05/12/17 07:53 Lactic Acid 1.5 mmol/L (0.5-2.0) 05/07/17 09:15 Calcium 9.2 mg/dL (8.6-10.3) 05/13/17 05:37 Total Bilirubin 0.30 mg/dL (0.2-1.0) 05/07/17 08:20 AST 14 U/L (13-39) 05/07/17 08:20 ALT 10 U/L (7-52) 05/07/17 08:20 Alkaline Phosphatase 103 U/L (34-104) 05/07/17 08:20 Troponin I 0.04 ng/mL (<0.04) H* 02/26/18 17:00 C-Reactive Protein 16.18 mg/L (< 5.00) H 05/07/17 08:20 B-Natriuretic Peptide 686 pg/mL (-100) H 05/07/17 08:20 Total Protein 8.1 g/dL (6.4-8.9) 05/07/17 08:20 Albumin 3.7 g/dL (3.2-5.2) 05/07/17 08:20 Globulin 4.4 g/dL (2-4) H 05/07/17 08:20 Albumin/Globulin Ratio 0.8 (1-3) L 05/07/17 08:20 Procalcitonin 0.3 ng/mL (<0.6) 05/07/17 08:20 Blood Type A Positive 05/09/17 06:23 Antibody Screen Negative 05/09/17 06:23 Crossmatch See Detail 05/09/17 06:23 General: Well appearing, NAD, sitting comfortably in chair. Normal mood and affect. LLE: Dressing C/D/I, no erythema or warmth proximal to splint. Assessment: POD #5 s/p left TMA. Plan: 1. Continue PT/OT 2. Next dressing change at office follow up 3. Plan to discharge to SNF when bed available. 4. Follow up with Dr. Louis next week 5. NWB LLE
--- NOTE | 2017-05-15 17:12 | PN ---
Subjective Date of Service: 05/15/17 Interval History: Pain comes and goes in foot Had episode overnight when he woke up and thought he saw another door in the room Denies CP/SOB Objective Active Medications: Acetaminophen (Tylenol Tab*) 650 mg PO Q6H PRN PRN Reason: PAIN Last Admin: 05/15/17 11:24 Dose: 650 mg Amlodipine Besylate (Norvasc Tab*) 10 mg PO DAILY [facility] Last Admin: 05/15/17 08:25 Dose: 10 mg Amoxicillin (Amoxicillin Po (*)) 500 mg PO DAILY [facility] Last Admin: 05/15/17 09:13 Dose: 500 mg Atorvastatin Calcium (Lipitor*) 5 mg PO QPM [facility] Last Admin: 05/14/17 17:26 Dose: 5 mg Dextrose (D50w Syringe 50 Ml*) 12.5 gm IV PUSH .FOR FS < 60 - SS PRN PRN Reason: FS < 60 Docusate Sodium (Colace Cap*) 100 mg PO BID [facility] Last Admin: 05/15/17 08:25 Dose: 100 mg Famotidine (Pepcid Tab*) 20 mg PO DAILY [facility] Last Admin: 05/15/17 08:25 Dose: 20 mg Gabapentin (Neurontin Cap(*)) 100 mg PO BID [facility] Last Admin: 05/15/17 08:25 Dose: 100 mg Melatonin (Melatonin (Nf)) 3 mg PO BEDTIME [facility] Last Admin: 05/14/17 23:16 Dose: 3 mg Metoprolol Tartrate (Lopressor Tab*) 12.5 mg PO Q12HR [facility] Last Admin: 05/15/17 08:25 Dose: 12.5 mg Morphine Sulfate (Morphine Inj (Syringe)*) 2 mg IV Q4H PRN PRN Reason: PAIN Last Admin: 05/15/17 11:24 Dose: 2 mg Omeprazole (Prilosec Cap*) 20 mg PO BID [facility] Last Admin: 05/15/17 08:25 Dose: 20 mg Oxycodone HCl (Roxycodone Tab*) 5 mg PO Q4H PRN PRN Reason: PAIN Last Admin: 05/15/17 14:32 Dose: 5 mg Senna (Senokot Tab*) 2 tab PO BEDTIME [facility] Last Admin: 05/14/17 21:12 Dose: 2 tab Sevelamer Carbonate (Renvela Tab*) 1,600 mg PO TID WITH MEALS [facility] Last Admin: 05/15/17 12:16 Dose: 1,600 mg Vital Signs - 8 hr 05/15/17 05/15/17 05/15/17 10:25 10:31 11:22 Temperature 98.9 F Pulse Rate 67 Respiratory 22 20 14 Rate Blood Pressure 130/60 (mmHg) O2 Sat by Pulse 98 Oximetry 05/15/17 05/15/17 05/15/17 11:24 12:18 14:32 Temperature Pulse Rate Respiratory 20 20 18 Rate Blood Pressure (mmHg) O2 Sat by Pulse Oximetry 05/15/17 05/15/17 16:12 16:39 Temperature 98.7 F Pulse Rate 58 Respiratory 14 Rate Blood Pressure 106/51 (mmHg) O2 Sat by Pulse 99 99 Oximetry Oxygen Devices in Use Now: None Appearance: NAD Eyes: No Scleral Icterus, PERRLA Ears/Nose/Mouth/Throat: Clear Oropharnyx, Mucous Membranes Moist Neck: NL Appearance and Movements; NL JVP, Trachea Midline Respiratory: Symmetrical Chest Expansion and Respiratory Effort, Clear to Auscultation Cardiovascular: RRR Abdominal: NL Sounds; No Tenderness; No Distention, No Hepatosplenomegaly Lymphatic: No Cervical Adenopathy Extremities: No Edema, - - left foot in cast Neurological: Alert and Oriented x 3 Result Diagrams: 05/12/17 05:44 05/13/17 05:37 Additional Lab and Data: Laboratory Results - last 24 hr 05/08/17 05/08/17 05/09/17 17:14 20:38 06:23 WBC 9.4 RBC 2.05 L Hgb 6.8 L Hct 20 L MCV 99 H MCH 33 H MCHC 34 RDW 16 H Plt Count 382 MPV 7 L Neut % (Auto) 61.7 Lymph % (Auto) 23.4 L [place] % (Auto) 11.0 H Eos % (Auto) 3.1 Baso % (Auto) 0.8 Absolute Neuts (auto) 5.8 Absolute Lymphs (auto) 2.2 Absolute Monos (auto) 1.0 H Absolute Eos (auto) 0.3 Absolute Basos (auto) 0.1 Absolute Nucleated RBC 0 Nucleated RBC % 0 Sodium Potassium Chloride Carbon Dioxide Anion Gap BUN Creatinine Est GFR ( Amer) Est GFR (Non-Af Amer) BUN/Creatinine Ratio Glucose POC Glucose (mg/dL) 110 H 132 H Calcium Blood Type Antibody Screen Crossmatch 05/09/17 05/09/17 05/09/17 06:23 06:23 07:58 WBC RBC Hgb Hct MCV MCH MCHC RDW Plt Count MPV Neut % (Auto) Lymph % (Auto) [place] % (Auto) Eos % (Auto) Baso % (Auto) Absolute Neuts (auto) Absolute Lymphs (auto) Absolute Monos (auto) Absolute Eos (auto) Absolute Basos (auto) Absolute Nucleated RBC Nucleated RBC % Sodium 135 Potassium 4.6 Chloride 95 L Carbon Dioxide 28 Anion Gap 12 H BUN 53 H Creatinine 8.03 H Est GFR ( Amer) 9.1 Est GFR (Non-Af Amer) 7.1 BUN/Creatinine Ratio 6.6 L Glucose 103 H POC Glucose (mg/dL) 110 H Calcium 9.3 Blood Type A Positive Antibody Screen Negative Crossmatch See Detail 05/09/17 05/09/17 11:08 16:59 WBC RBC Hgb Hct MCV MCH MCHC RDW Plt Count MPV Neut % (Auto) Lymph % (Auto) [place] % (Auto) Eos % (Auto) Baso % (Auto) Absolute Neuts (auto) Absolute Lymphs (auto) Absolute Monos (auto) Absolute Eos (auto) Absolute Basos (auto) Absolute Nucleated RBC Nucleated RBC % Sodium Potassium Chloride Carbon Dioxide Anion Gap BUN Creatinine Est GFR ( Amer) Est GFR (Non-Af Amer) BUN/Creatinine Ratio Glucose POC Glucose (mg/dL) 123 H 123 H Calcium Blood Type Antibody Screen Crossmatch Microbiology and Other Data: Microbiology 05/07/17 12:40 Foot Left Skin and Soft Tissue MRSA/MSSA (PCR - Final Mrsa Negative S.aureus Negative 05/07/17 12:40 Foot Left Gram Stain - Final 05/07/17 12:40 Foot Left Wound Culture - Preliminary Enterococcus Faecalis Normal Tali 05/08/17 18:34 Stool Stool Occult Blood (RIVERA) - Final Assess/Plan/Problems-Billing Assessment: 52 yo male PMH ESRD, anemia with recent clean based gastric ulcer on PPI and H2B , DM, s/p right TMA and aborted left necrotic foot wound when hypoxic respiratory failure. Presents with hypoxic respiratory failure, hyperkalemia and volume overload improved with HD. Consults to Dr. Louis and ID. Entercoccous Faecalis again in the left foot. Leukocytosis resolved on cftx. Got 2u pRBC 05/09. Medically optimized for orthopedic surgery of left foot performed on 05/10 - Patient Problems (1) Acute respiratory failure with hypoxia Comment: resolved with HD and 4L off on 05/07. was 6L up per digital imaging technician. Now on RA, comfortable continue HD MWF while here. (2) Anemia Comment: gastric ulcer on outpatient EGD 05/01. continue PPI, H2 [place]. poor retic produciton index in setting of infection. also lost a lot of weight in last year ~150 lbs. Also lost his suddenly in Dec. S/p 2u pRBC on 05/09/17 continue epogen with HD b12, folate okay in January. (3) Depression Comment: Pt's suddenly in December and expressed desire to dress shoe inspector that he would like to talk to [facility] counselor. Spoke with car examiner while here (4) ESRD (end stage renal disease) Current Visit: No Status: Acute Code(s): N18.6 - END STAGE RENAL DISEASE SNOMED Code(s): 21912222 Comment: HD MWF while inpatient. TThSa as outpatient. (5) Hypertension Current Visit: No Status: Acute Code(s): I10 - ESSENTIAL (PRIMARY) HYPERTENSION SNOMED Code(s): 43105795 Comment: Norvasc 10mg, metoprolol 12.5mg BID. controlled (6) Toe gangrene Comment: Necrotic left foot across previous amputation and extending into 1st toe. Culture growing Enterococcus Faecalis (again). Ceftriaxone d/c'd and Amoxicillin started on 05/11/17-plan to cont it daily x 2 weeks s/p transtarsal amputation by Dr. Dyson on 05/10/16. Plan to go to [facility] (7) DVT prophylaxis Comment: SCD's, no anticoagulation due to recent h/o ulcer and GI bleed Status and Disposition: medicine inpatient.
[2017-05-15] MEDS: Atorvastatin* 10 MG TAB PO SCH (17:19)
[2017-05-15] MEDS: Senna TAB PO SCH (20:57)
[2017-05-15] MEDS: CMCS:Melatonin (NF) 3 MG TAB PO SCH (23:42)
[2017-05-16] MEDS: Acetaminophen TAB* 325 MG PO PRN ×4 (03:36→22:51)
[2017-05-16] MEDS: Sevelamer TAB* 800 MG PO SCH ×3 (08:18→18:32)
--- NOTE | 2017-05-16 10:03 | PN ---
Progress Note - Progress Note Date of Service: 05/16/17 SOAP: Subjective: []Patient seen OOB in chair. He has been mobilizing with a knee scooter which he tolerates better than a walker. Pain of LLE is a 2-3/10. Denies fever, chills , CP or SOB. Objective: [] Vital Signs Temp 98.6 F 05/16/17 07:25 Pulse 63 05/16/17 07:25 Resp 16 05/16/17 07:28 BP 114/64 05/16/17 07:25 Pulse Ox 99 05/16/17 07:28 Intake & Output 05/15/17 05/16/17 05/16/17 18:59 06:59 18:59 Intake Total 1560 0 Output Total 0 Balance 1560 0 Weight 243 lb 6.4 oz Intake: Oral 1560 0 Output: Urine 0 Other: # Bowel Movements 0 Laboratory Last Values WBC 8.2 10^3/ul (3.5-10.8) 05/12/17 05:44 RBC 2.38 10^6/ul (4.0-5.4) L 05/12/17 05:44 RBC (Retic) 2.12 10^6/ul (4.6-6.2) L D 05/07/17 08:20 Hgb 7.6 g/dl (14.0-18.0) L 05/12/17 05:44 Hct 23 % (42-52) L 05/12/17 05:44 HCT (Retic) 22 % (42-52) L 05/07/17 08:20 MCV 95 fL (80-94) H 05/12/17 05:44 MCH 32 pg (27-31) H 05/12/17 05:44 MCHC 33 g/dl (31-36) 05/12/17 05:44 RDW 21 % (10.5-15) H 05/12/17 05:44 Plt Count 383 10^3/ul (150-450) 05/12/17 05:44 MPV 8 um3 (7.4-10.4) 05/12/17 05:44 Neut % (Auto) 54.4 % (38-83) 05/12/17 05:44 Lymph % (Auto) 23.3 % (25-47) L 05/12/17 05:44 [place] % (Auto) 18.0 % (0-7) H 05/12/17 05:44 Eos % (Auto) 3.2 % (0-6) 05/12/17 05:44 Baso % (Auto) 1.1 % (0-2) 05/12/17 05:44 Absolute Neuts (auto) 4.5 10^3/ul (1.5-7.7) 05/12/17 05:44 Absolute Lymphs (auto) 1.9 10^3/ul (1.0-4.8) 05/12/17 05:44 Absolute Monos (auto) 1.5 10^3/ul (0-0.8) H 05/12/17 05:44 Absolute Eos (auto) 0.3 10^3/ul (0-0.6) 05/12/17 05:44 Absolute Basos (auto) 0.1 10^3/ul (0-0.2) 05/12/17 05:44 Absolute Nucleated RBC 0 10^3/ul 05/12/17 05:44 Neutrophils % 68 % (38-83) 05/07/17 08:20 Lymphocytes % 22 % (25-47) L 05/07/17 08:20 Monocytes % 7 % (0-7) 05/07/17 08:20 Eosinophils % 2 % (0-6) 05/07/17 08:20 Basophils % 1 % (0-2) 05/07/17 08:20 Nucleated RBC % 0.1 05/12/17 05:44 Abs Neuts (Manual) 12.1 10^3/ul (1.5-7.7) H 05/07/17 08:20 Abs Monocytes (Manual) 1.2 10^3/ul (0-0.8) H 05/07/17 08:20 Absolute Eos (Manual) 0.4 10^3/ul (0-0.6) 05/07/17 08:20 Abs Basophils (Manual) 0.2 10^3/ul (0-0.2) 05/07/17 08:20 Normal RBC Morphology Not Reportable 05/07/17 08:20 Polychromasia 1+ 05/07/17 08:20 Hypochromasia 1+ 05/07/17 08:20 Retic Count, Calc 3.4 % (0.5-1.5) H 05/07/17 08:20 Corrected Retic Count 1.7 % (0.5-1.5) H 05/07/17 08:20 Retic Shift Factor 2.0 05/07/17 08:20 Retic Production Index 0.90 05/07/17 08:20 Immature Retic Fraction 0.65 05/07/17 08:20 Mean Retic Volume 124.9 05/07/17 08:20 INR (Anticoag Therapy) 1.17 (0.77-1.02) H 05/10/17 05:02 Sodium 131 mmol/L (133-145) L 05/13/17 05:37 Potassium 4.4 mmol/L (3.5-5.0) 05/13/17 05:37 Chloride 89 mmol/L (101-111) L 05/13/17 05:37 Carbon Dioxide 29 mmol/L (22-32) 05/13/17 05:37 Anion Gap 13 mmol/L (2-11) H 05/13/17 05:37 BUN 48 mg/dL (6-24) H 05/13/17 05:37 Creatinine 9.21 mg/dL (0.67-1.17) H 05/13/17 05:37 Est GFR ( Amer) 7.8 (>60) 05/13/17 05:37 Est GFR (Non-Af Amer) 6.0 (>60) 05/13/17 05:37 BUN/Creatinine Ratio 5.2 (8-20) L 05/13/17 05:37 Glucose 93 mg/dL (70-100) 05/13/17 05:37 POC Glucose (mg/dL) 105 mg/dL (70-100) H 05/12/17 07:53 Lactic Acid 1.5 mmol/L (0.5-2.0) 05/07/17 09:15 Calcium 9.2 mg/dL (8.6-10.3) 05/13/17 05:37 Total Bilirubin 0.30 mg/dL (0.2-1.0) 05/07/17 08:20 AST 14 U/L (13-39) 05/07/17 08:20 ALT 10 U/L (7-52) 05/07/17 08:20 Alkaline Phosphatase 103 U/L (34-104) 05/07/17 08:20 Troponin I 0.04 ng/mL (<0.04) H* 05/07/17 17:00 C-Reactive Protein 16.18 mg/L (< 5.00) H 05/07/17 08:20 B-Natriuretic Peptide 686 pg/mL (-100) H 05/07/17 08:20 Total Protein 8.1 g/dL (6.4-8.9) 05/07/17 08:20 Albumin 3.7 g/dL (3.2-5.2) 05/07/17 08:20 Globulin 4.4 g/dL (2-4) H 05/07/17 08:20 Albumin/Globulin Ratio 0.8 (1-3) L 05/07/17 08:20 Procalcitonin 0.3 ng/mL (<0.6) 05/07/17 08:20 Blood Type A Positive 05/09/17 06:23 Antibody Screen Negative 05/09/17 06:23 Crossmatch See Detail 05/09/17 06:23 General: Well appearing, NAD, sitting comfortably in chair. Normal mood and affect. LLE: Dressing C/D/I, no erythema or warmth proximal to splint. Assessment: POD #6 s/p left TMA. Plan: 1. Continue PT/OT 2. Next dressing change at office follow up 3. Plan to discharge to SNF when bed available. 4. Follow up with Dr. Dyson 2 weeks post op ( roughly 05/24). 5. NWB LLE
[2017-05-16] MEDS: Metoprolol Tartrate TAB* 25 MG PO SCH ×2 (10:30→22:51)
[2017-05-16] MEDS: Amoxicillin PO (*) 500 MG CAP PO SCH (10:31)
[2017-05-16] MEDS: amLODIPine TAB* 5 MG PO SCH (10:31)
[2017-05-16] MEDS: Famotidine TAB* 20 MG PO SCH (10:32)
[2017-05-16] MEDS: Docusate CAP* 100 MG PO SCH ×2 (10:32→22:51)
[2017-05-16] MEDS: Omeprazole CAP* 20 MG PO SCH ×2 (10:32→22:51)
[2017-05-16] MEDS: Gabapentin CAP(*) 100 MG PO SCH ×2 (10:33→22:50)
[2017-05-16] MEDS: Morphine INJ* 2 MG/ML 1 ML CARPUJECT IV PRN ×3 (13:49→22:52)
[2017-05-16] MEDS ORDERED: Epoetin Alfa* 10,000 UNITS/ML VIAL IV ONE (16:15)
--- NOTE | 2017-05-16 16:20 | PN ---
Subjective Date of Service: 05/16/17 Interval History: Pain better controlled. No episodes of confusion or hallucinations overnight Denies other complaints. Anxious for discharge but pending insurance approval for bed at [facility] Objective Active Medications: Acetaminophen (Tylenol Tab*) 650 mg PO Q6H PRN PRN Reason: PAIN Last Admin: 05/16/17 10:34 Dose: 650 mg Amlodipine Besylate (Norvasc Tab*) 10 mg PO DAILY [facility] Last Admin: 05/16/17 10:31 Dose: 10 mg Amoxicillin (Amoxicillin Po (*)) 500 mg PO DAILY [facility] Last Admin: 05/16/17 10:31 Dose: 500 mg Atorvastatin Calcium (Lipitor*) 5 mg PO QPM [facility] Last Admin: 05/15/17 17:19 Dose: 5 mg Dextrose (D50w Syringe 50 Ml*) 12.5 gm IV PUSH .FOR FS < 60 - SS PRN PRN Reason: FS < 60 Docusate Sodium (Colace Cap*) 100 mg PO BID [facility] Last Admin: 05/16/17 10:32 Dose: 100 mg Famotidine (Pepcid Tab*) 20 mg PO DAILY [facility] Last Admin: 05/16/17 10:32 Dose: 20 mg Gabapentin (Neurontin Cap(*)) 100 mg PO BID [facility] Last Admin: 05/16/17 10:33 Dose: 100 mg Melatonin (Melatonin (Nf)) 3 mg PO BEDTIME [facility] Last Admin: 05/15/17 23:42 Dose: 3 mg Metoprolol Tartrate (Lopressor Tab*) 12.5 mg PO Q12HR [facility] Last Admin: 05/16/17 10:30 Dose: 12.5 mg Morphine Sulfate (Morphine Inj (Syringe)*) 2 mg IV Q4H PRN PRN Reason: PAIN Last Admin: 05/16/17 13:49 Dose: 2 mg Omeprazole (Prilosec Cap*) 20 mg PO BID [facility] Last Admin: 05/16/17 10:32 Dose: 20 mg Senna (Senokot Tab*) 2 tab PO BEDTIME [facility] Last Admin: 05/15/17 20:57 Dose: 2 tab Sevelamer Carbonate (Renvela Tab*) 1,600 mg PO TID WITH MEALS [facility] Last Admin: 05/16/17 12:27 Dose: 1,600 mg Vital Signs - 8 hr 05/16/17 05/16/17 05/16/17 10:17 10:33 11:31 Temperature 98.8 F Pulse Rate 60 69 Respiratory 16 16 16 Rate Blood Pressure 112/84 124/58 (mmHg) O2 Sat by Pulse 95 Oximetry 05/16/17 05/16/17 12:30 13:49 Temperature Pulse Rate Respiratory 20 20 Rate Blood Pressure (mmHg) O2 Sat by Pulse Oximetry Oxygen Devices in Use Now: None Appearance: NAD Eyes: No Scleral Icterus, PERRLA Ears/Nose/Mouth/Throat: NL Teeth, Lips, Gums, Clear Oropharnyx Neck: NL Appearance and Movements; NL JVP, Trachea Midline Cardiovascular: RRR Abdominal: NL Sounds; No Tenderness; No Distention, No Hepatosplenomegaly Lymphatic: No Cervical Adenopathy Extremities: - - left LE in wrapped Neurological: Alert and Oriented x 3 Result Diagrams: 05/12/17 05:44 05/13/17 05:37 Additional Lab and Data: Laboratory Results - last 24 hr 05/08/17 05/08/17 05/09/17 17:14 20:38 06:23 WBC 9.4 RBC 2.05 L Hgb 6.8 L Hct 20 L MCV 99 H MCH 33 H MCHC 34 RDW 16 H Plt Count 382 MPV 7 L Neut % (Auto) 61.7 Lymph % (Auto) 23.4 L [place] % (Auto) 11.0 H Eos % (Auto) 3.1 Baso % (Auto) 0.8 Absolute Neuts (auto) 5.8 Absolute Lymphs (auto) 2.2 Absolute Monos (auto) 1.0 H Absolute Eos (auto) 0.3 Absolute Basos (auto) 0.1 Absolute Nucleated RBC 0 Nucleated RBC % 0 Sodium Potassium Chloride Carbon Dioxide Anion Gap BUN Creatinine Est GFR ( Amer) Est GFR (Non-Af Amer) BUN/Creatinine Ratio Glucose POC Glucose (mg/dL) 110 H 132 H Calcium Blood Type Antibody Screen Crossmatch 05/09/17 05/09/17 05/09/17 06:23 06:23 07:58 WBC RBC Hgb Hct MCV MCH MCHC RDW Plt Count MPV Neut % (Auto) Lymph % (Auto) [place] % (Auto) Eos % (Auto) Baso % (Auto) Absolute Neuts (auto) Absolute Lymphs (auto) Absolute Monos (auto) Absolute Eos (auto) Absolute Basos (auto) Absolute Nucleated RBC Nucleated RBC % Sodium 135 Potassium 4.6 Chloride 95 L Carbon Dioxide 28 Anion Gap 12 H BUN 53 H Creatinine 8.03 H Est GFR ( Amer) 9.1 Est GFR (Non-Af Amer) 7.1 BUN/Creatinine Ratio 6.6 L Glucose 103 H POC Glucose (mg/dL) 110 H Calcium 9.3 Blood Type A Positive Antibody Screen Negative Crossmatch See Detail 05/09/17 05/09/17 11:08 16:59 WBC RBC Hgb Hct MCV MCH MCHC RDW Plt Count MPV Neut % (Auto) Lymph % (Auto) [place] % (Auto) Eos % (Auto) Baso % (Auto) Absolute Neuts (auto) Absolute Lymphs (auto) Absolute Monos (auto) Absolute Eos (auto) Absolute Basos (auto) Absolute Nucleated RBC Nucleated RBC % Sodium Potassium Chloride Carbon Dioxide Anion Gap BUN Creatinine Est GFR ( Amer) Est GFR (Non-Af Amer) BUN/Creatinine Ratio Glucose POC Glucose (mg/dL) 123 H 123 H Calcium Blood Type Antibody Screen Crossmatch Microbiology and Other Data: Microbiology 05/07/17 12:40 Foot Left Skin and Soft Tissue MRSA/MSSA (PCR - Final Mrsa Negative S.aureus Negative 05/07/17 12:40 Foot Left Gram Stain - Final 05/07/17 12:40 Foot Left Wound Culture - Preliminary Enterococcus Faecalis Normal Tali 05/08/17 18:34 Stool Stool Occult Blood ([facility]IVERA) - Final Assess/Plan/Problems-Billing Assessment: 52 yo male PMH ESRD, anemia with recent clean based gastric ulcer on PPI and H2B , DM, s/p right TMA and aborted left necrotic foot wound when hypoxic respiratory failure. Presents with hypoxic respiratory failure, hyperkalemia and volume overload improved with HD. Consults to Dr. Louis and ID. Entercoccous Faecalis again in the left foot. Leukocytosis resolved on CTX. Got 2u pRBC 05/09. Medically optimized for orthopedic surgery of left foot then performed on 05/10 - Patient Problems (1) Acute respiratory failure with hypoxia Comment: resolved with HD and 4L off on 05/07. was 6L up per technical inspector. Now on RA, comfortable continue HD MWF while here. (2) Anemia Comment: gastric ulcer on outpatient EGD 05/01. continue PPI, H2 [place]. poor retic produciton index in setting of infection. also lost a lot of weight in last year ~150 lbs. Also lost his suddenly in Dec. S/p 2u pRBC on 05/09/17 continue epogen with HD b12, folate okay in January. (3) Depression Comment: Pt's suddenly in December and expressed desire to promotional representative that he would like to talk to elice counselor. Spoke with manager sterile while here (4) ESRD (end stage renal disease) Comment: HD MWF while inpatient. TThSa as outpatient. (5) Hypertension Comment: Norvasc 10mg, metoprolol 12.5mg BID. controlled (6) Toe gangrene Comment: Necrotic left foot across previous amputation and extending into 1st toe. Culture growing Enterococcus Faecalis (again). Ceftriaxone d/c'd and Amoxicillin started on 05/11/17-plan to cont it daily x 2 weeks s/p transtarsal amputation by Dr. Dyson on 05/10/16. Plan to go to [facility] (7) DVT prophylaxis Comment: SCD's, no anticoagulation due to recent h/o ulcer and GI bleed Status and Disposition: medicine inpatient.
[2017-05-16] MEDS ORDERED: Morphine INJ* 2 MG/ML 1 ML CARPUJECT IV ONE (17:00)
[2017-05-16] MEDS: Atorvastatin* 10 MG TAB PO SCH (18:32)
[2017-05-16] MEDS: CMCS:Melatonin (NF) 3 MG TAB PO SCH (22:50)
[2017-05-16] MEDS: Senna TAB PO SCH (22:51)
[2017-05-17] MEDS: Amoxicillin PO (*) 500 MG CAP PO SCH (08:30)
[2017-05-17] MEDS: Sevelamer TAB* 800 MG PO SCH ×3 (08:30→17:06)
[2017-05-17] MEDS: Famotidine TAB* 20 MG PO SCH (08:30)
[2017-05-17] MEDS: Omeprazole CAP* 20 MG PO SCH ×2 (08:30→22:30)
[2017-05-17] MEDS: Gabapentin CAP(*) 100 MG PO SCH ×2 (08:30→22:27)
[2017-05-17] MEDS: amLODIPine TAB* 5 MG PO SCH (08:30)
[2017-05-17] MEDS: Docusate CAP* 100 MG PO SCH ×2 (08:30→22:27)
[2017-05-17] MEDS: Metoprolol Tartrate TAB* 25 MG PO SCH ×2 (08:34→22:29)
[2017-05-17] MEDS: Acetaminophen TAB* 325 MG PO PRN ×3 (10:00→22:31)
[2017-05-17] MEDS: Morphine INJ* 2 MG/ML 1 ML CARPUJECT IV PRN ×2 (11:31→15:36)
[2017-05-17] MEDS: Atorvastatin* 10 MG TAB PO SCH (17:06)
--- NOTE | 2017-05-17 18:00 | PN ---
Subjective Date of Service: 05/17/17 Interval History: [place] confused on waking up from deep sleep but resolved spontaneously. Notes this also happens at home Pain waxes and wanes. Does not want change in pain medication insurance approval of [facility] pending Objective Active Medications: Acetaminophen (Tylenol Tab*) 650 mg PO Q6H PRN PRN Reason: PAIN Last Admin: 05/17/17 15:37 Dose: 650 mg Amlodipine Besylate (Norvasc Tab*) 10 mg PO DAILY [facility] Last Admin: 05/17/17 08:30 Dose: 10 mg Amoxicillin (Amoxicillin Po (*)) 500 mg PO DAILY [facility] Last Admin: 05/17/17 08:30 Dose: 500 mg Atorvastatin Calcium (Lipitor*) 5 mg PO QPM [facility] Last Admin: 05/17/17 17:06 Dose: 5 mg Dextrose (D50w Syringe 50 Ml*) 12.5 gm IV PUSH .FOR FS < 60 - SS PRN PRN Reason: FS < 60 Docusate Sodium (Colace Cap*) 100 mg PO BID [facility] Last Admin: 05/17/17 08:30 Dose: 100 mg Famotidine (Pepcid Tab*) 20 mg PO DAILY [facility] Last Admin: 05/17/17 08:30 Dose: 20 mg Gabapentin (Neurontin Cap(*)) 100 mg PO BID [facility] Last Admin: 05/17/17 08:30 Dose: 100 mg Melatonin (Melatonin (Nf)) 3 mg PO BEDTIME [facility] Last Admin: 05/16/17 22:50 Dose: 3 mg Metoprolol Tartrate (Lopressor Tab*) 12.5 mg PO Q12HR [facility] Last Admin: 05/17/17 08:34 Dose: 12.5 mg Morphine Sulfate (Morphine Inj (Syringe)*) 2 mg IV Q4H PRN PRN Reason: PAIN Last Admin: 05/17/17 15:36 Dose: 2 mg Omeprazole (Prilosec Cap*) 20 mg PO BID [facility] Last Admin: 05/17/17 08:30 Dose: 20 mg Senna (Senokot Tab*) 2 tab PO BEDTIME [facility] Last Admin: 05/16/17 22:51 Dose: 2 tab Sevelamer Carbonate (Renvela Tab*) 1,600 mg PO TID WITH MEALS [facility] Last Admin: 05/17/17 17:06 Dose: 1,600 mg Vital Signs - 8 hr 05/17/17 05/17/17 05/17/17 10:00 11:31 11:57 Temperature 99.2 F Pulse Rate 57 Respiratory 18 18 16 Rate Blood Pressure 106/60 (mmHg) O2 Sat by Pulse 97 Oximetry 05/17/17 05/17/17 05/17/17 12:30 13:58 15:36 Temperature 99 F Pulse Rate 58 Respiratory 18 14 20 Rate Blood Pressure 95/63 (mmHg) O2 Sat by Pulse 100 Oximetry 05/17/17 16:31 Temperature 98.0 F Pulse Rate 60 Respiratory 16 Rate Blood Pressure 114/64 (mmHg) O2 Sat by Pulse 100 Oximetry Oxygen Devices in Use Now: None Appearance: NAD Eyes: No Scleral Icterus Ears/Nose/Mouth/Throat: NL Teeth, Lips, Gums, Clear Oropharnyx Neck: NL Appearance and Movements; NL JVP, Trachea Midline Respiratory: Symmetrical Chest Expansion and Respiratory Effort, Clear to Auscultation Cardiovascular: RRR, - - 2/6 SHANNAN RUSB Abdominal: NL Sounds; No Tenderness; No Distention, No Hepatosplenomegaly Lymphatic: No Cervical Adenopathy Extremities: - - left LE dressed Neurological: Alert and Oriented x 3 Result Diagrams: 05/12/17 05:44 05/13/17 05:37 Additional Lab and Data: Laboratory Results - last 24 hr 05/08/17 05/08/17 05/09/17 17:14 20:38 06:23 WBC 9.4 RBC 2.05 L Hgb 6.8 L Hct 20 L MCV 99 H MCH 33 H MCHC 34 RDW 16 H Plt Count 382 MPV 7 L Neut % (Auto) 61.7 Lymph % (Auto) 23.4 L [place] % (Auto) 11.0 H Eos % (Auto) 3.1 Baso % (Auto) 0.8 Absolute Neuts (auto) 5.8 Absolute Lymphs (auto) 2.2 Absolute Monos (auto) 1.0 H Absolute Eos (auto) 0.3 Absolute Basos (auto) 0.1 Absolute Nucleated RBC 0 Nucleated RBC % 0 Sodium Potassium Chloride Carbon Dioxide Anion Gap BUN Creatinine Est GFR ( Amer) Est GFR (Non-Af Amer) BUN/Creatinine Ratio Glucose POC Glucose (mg/dL) 110 H 132 H Calcium Blood Type Antibody Screen Crossmatch 05/09/17 05/09/17 05/09/17 06:23 06:23 07:58 WBC RBC Hgb Hct MCV MCH MCHC RDW Plt Count MPV Neut % (Auto) Lymph % (Auto) [place] % (Auto) Eos % (Auto) Baso % (Auto) Absolute Neuts (auto) Absolute Lymphs (auto) Absolute Monos (auto) Absolute Eos (auto) Absolute Basos (auto) Absolute Nucleated RBC Nucleated RBC % Sodium 135 Potassium 4.6 Chloride 95 L Carbon Dioxide 28 Anion Gap 12 H BUN 53 H Creatinine 8.03 H Est GFR ( Amer) 9.1 Est GFR (Non-Af Amer) 7.1 BUN/Creatinine Ratio 6.6 L Glucose 103 H POC Glucose (mg/dL) 110 H Calcium 9.3 Blood Type A Positive Antibody Screen Negative Crossmatch See Detail 05/09/17 05/09/17 11:08 16:59 WBC RBC Hgb Hct MCV MCH MCHC RDW Plt Count MPV Neut % (Auto) Lymph % (Auto) [place] % (Auto) Eos % (Auto) Baso % (Auto) Absolute Neuts (auto) Absolute Lymphs (auto) Absolute Monos (auto) Absolute Eos (auto) Absolute Basos (auto) Absolute Nucleated RBC Nucleated RBC % Sodium Potassium Chloride Carbon Dioxide Anion Gap BUN Creatinine Est GFR ( Amer) Est GFR (Non-Af Amer) BUN/Creatinine Ratio Glucose POC Glucose (mg/dL) 123 H 123 H Calcium Blood Type Antibody Screen Crossmatch Microbiology and Other Data: Microbiology 05/07/17 12:40 Foot Left Skin and Soft Tissue MRSA/MSSA (PCR - Final Mrsa Negative S.aureus Negative 05/07/17 12:40 Foot Left Gram Stain - Final 05/07/17 12:40 Foot Left Wound Culture - Preliminary Enterococcus Faecalis Normal Tali 05/08/17 18:34 Stool Stool Occult Blood (RIVERA) - Final Assess/Plan/Problems-Billing Assessment: 52 yo male PMH ESRD, anemia with recent clean based gastric ulcer on PPI and H2B , DM, s/p right TMA and aborted left necrotic foot wound when hypoxic respiratory failure. Presents with hypoxic respiratory failure, hyperkalemia and volume overload improved with HD. Consults to Dr. Louis and ID. Entercoccous Faecalis again in the left foot. Leukocytosis resolved on CTX. Got 2u pRBC 05/09. Medically optimized for orthopedic surgery of left foot then performed on 3/1 - Patient Problems (1) Acute respiratory failure with hypoxia Comment: resolved with HD and 4L off on 05/07. was 6L up per information technology program manager. Now on RA, comfortable continue HD MWF while here. (2) Anemia Comment: gastric ulcer on outpatient EGD 05/01. continue PPI, H2 [place]. poor retic produciton index in setting of infection. also lost a lot of weight in last year ~150 lbs. Also lost his suddenly in Dec. S/p 2u pRBC on 05/09/17 continue epogen with HD b12, folate okay in January. (3) Depression Comment: Pt's suddenly in December and expressed desire to stock trader that he would like to talk to lester counselor. Spoke with burr filer while here (4) ESRD (end stage renal disease) Comment: HD MWF while inpatient. TThSa as outpatient. (5) Hypertension Comment: Norvasc 10mg, metoprolol 12.5mg BID. controlled (6) Toe gangrene Comment: Necrotic left foot across previous amputation and extending into 1st toe. Culture growing Enterococcus Faecalis (again). Ceftriaxone d/c'd and Amoxicillin started on 05/11/17-plan to cont it daily x 2 weeks s/p transtarsal amputation by Dr. Dyson on 05/10/16. Plan to go to STR Next dressing change around 05/24 in Ortho office (7) DVT prophylaxis Comment: SCD's, no anticoagulation due to recent h/o ulcer and GI bleed Status and Disposition: medicine inpatient.
[2017-05-17] MEDS: CMCS:Melatonin (NF) 3 MG TAB PO SCH (22:28)
[2017-05-17] MEDS: Senna TAB PO SCH (22:30)
[2017-05-18] MEDS: Morphine INJ* 2 MG/ML 1 ML CARPUJECT IV PRN (00:15)
[2017-05-18 06:01] LABS: Hematocrit 22 % (42-52); Hemoglobin 7.4 g/dl (14.0-18.0); Mean Corpuscular HGB Conc 34 g/dl (31-36); Mean Corpuscular Hemoglobin 32 pg (27-31); Mean Corpuscular Volume 93 fL (80-94); Mean Platelet Volume 8 um3 (7.4-10.4); Platelet Count 416 10^3/ul (150-450); Red Blood Count 2.36 10^6/ul (4.0-5.4); Red Cell Distribution Width 20 % (10.5-15)
[2017-05-18 06:31] LABS: EGFR Non-African American 5.5 (>60)
[2017-05-18 06:37] LABS: ABS Basophils 0.1 10^3/ul (0-0.2); ABS Eosinophils 0.3 10^3/ul (0-0.6); ABS Lymphocytes 1.8 10^3/ul (1.0-4.8); ABS Monocytes 1.8 10^3/ul (0-0.8); ABS Nucleated RBC 0 10^3/ul; Lymphocyte % 20.5 % (25-47); Nucleated Red Blood Cells % 0.1
--- NOTE | 2017-05-18 08:40 | PN ---
Progress Note - Progress Note Date of Service: 05/18/17 SOAP: Subjective: 52 y/o male with multiple co-morbidities s/p 1. Left foot transtarsal (Chopart) amputation, Left tibialis anterior tendon transfer, Left peroneus brevis tendon transfer, Left percutaneous Achilles tenotomy on 05/[address] Dyson. VSS, afebrile. C/O infrequent pain. Objective: General- Well appearing, resting in bed comfortably MSK- SUrgical dressing intact, no drainage, odor noted, no erythema, induration above dressing, neg homans. Vital Signs Temp 97.8 F 05/18/17 07:39 Pulse 60 05/18/17 07:39 Resp 16 05/18/17 07:39 BP 107/50 05/18/17 07:39 Pulse Ox 96 05/18/17 07:39 Intake & Output 05/17/17 05/18/17 05/18/17 18:59 06:59 18:59 Intake Total 1250 240 Output Total 100 0 Balance 1150 240 Weight 108.182 kg Intake: Oral 1250 240 Output: Urine 100 0 Other: # Bowel Movements 0 # Voids 0 Assessment: POD #8 s/p left TMA. Plan: - NWB LLE- use walker, knee scooter - Follow with Dr. Dyson ~ 2 weeks post-op (around 05/24), awaiting rehab placement - Cultures- E Johnnylis- currently on Amoxicillin, plan to continue for 2 weeks Acetaminophen (Tylenol Tab*) 650 mg PO Q6H PRN PRN Reason: PAIN Last Admin: 05/17/17 22:31 Dose: 650 mg Amlodipine Besylate (Norvasc Tab*) 10 mg PO DAILY [facility] Last Admin: 05/17/17 08:30 Dose: 10 mg Amoxicillin (Amoxicillin Po (*)) 500 mg PO DAILY [facility] Last Admin: 05/17/17 08:30 Dose: 500 mg Atorvastatin Calcium (Lipitor*) 5 mg PO QPM [facility] Last Admin: 05/17/17 17:06 Dose: 5 mg Dextrose (D50w Syringe 50 Ml*) 12.5 gm IV PUSH .FOR FS < 60 - SS PRN PRN Reason: FS < 60 Docusate Sodium (Colace Cap*) 100 mg PO BID [facility] Last Admin: 05/17/17 22:27 Dose: 100 mg Famotidine (Pepcid Tab*) 20 mg PO DAILY [facility] Last Admin: 05/17/17 08:30 Dose: 20 mg Gabapentin (Neurontin Cap(*)) 100 mg PO BID [facility] Last Admin: 05/17/17 22:27 Dose: 100 mg Melatonin (Melatonin (Nf)) 3 mg PO BEDTIME [facility] Last Admin: 05/17/17 22:28 Dose: 3 mg Metoprolol Tartrate (Lopressor Tab*) 12.5 mg PO Q12HR [facility] Last Admin: 05/17/17 22:29 Dose: 12.5 mg Morphine Sulfate (Morphine Inj (Syringe)*) 2 mg IV Q4H PRN PRN Reason: PAIN Last Admin: 05/18/17 00:15 Dose: 2 mg Omeprazole (Prilosec Cap*) 20 mg PO BID [facility] Last Admin: 05/17/17 22:30 Dose: 20 mg Senna (Senokot Tab*) 2 tab PO BEDTIME [facility] Last Admin: 05/17/17 22:30 Dose: 2 tab Sevelamer Carbonate (Renvela Tab*) 1,600 mg PO TID WITH MEALS [facility] Last Admin: 05/17/17 17:06 Dose: 1,600 mg
[2017-05-18] MEDS: amLODIPine TAB* 5 MG PO SCH (09:17)
[2017-05-18] MEDS: Docusate CAP* 100 MG PO SCH (09:17)
[2017-05-18] MEDS: Amoxicillin PO (*) 500 MG CAP PO SCH (09:17)
[2017-05-18] MEDS: Metoprolol Tartrate TAB* 25 MG PO SCH (09:17)
[2017-05-18] MEDS: Gabapentin CAP(*) 100 MG PO SCH (09:18)
[2017-05-18] MEDS: Omeprazole CAP* 20 MG PO SCH (09:18)
[2017-05-18] MEDS: Sevelamer TAB* 800 MG PO SCH ×3 (09:18→18:00)
[2017-05-18] MEDS: Famotidine TAB* 20 MG PO SCH (09:18)
[2017-05-18] MEDS ORDERED: oxyCODONE TAB* 5 MG TAB PO PRN (09:28)
[2017-05-18] MEDS: Acetaminophen TAB* 325 MG PO PRN (12:41)
[2017-05-18 13:11] VITALS: BP 111/46
[2017-05-18] MEDS ORDERED: Epoetin Alfa* 10,000 UNITS/ML VIAL IV ONE (16:00)
--- NOTE | 2017-05-18 16:32 | DS ---
CC: VANDANA Velez; Dr. Bradley Dyson DATE OF ADMISSION: 05/07/2017. DATE OF DISCHARGE: 05/18/2017. PRIMARY CARE PROVIDER: VANDANA Velez. PRIMARY DIAGNOSES: 1. Hypoxic respiratory failure in the setting of volume overload. 2. Chronic left lower extremity wound, status post left TMA. 3. End-stage renal disease, on hemodialysis Sunday, Sunday, and Sunday inpatient; Sunday, ay, Sunday outpatient. 4. Gastric ulcer complicated by acute blood loss anemia, status post EGD 05/01/2016. 5. Last blood transfusion 05/09/2017. 6. Depression. 7. Hypertension. 8. Peripheral neuropathy. 9. Hospital acquired delirium. MEDICATIONS ON DISCHARGE: 1. Acetaminophen 650 mg every 6 hours as needed for pain or fever. 2. Norvasc 10 mg daily. 3. Ranitidine 300 mg daily with meals. 4. Simvastatin 10 mg in the evening. 5. Sevelamer 1600 mg three times a day with meals. 6. Omeprazole 20 mg twice daily. 7. Oxycodone 5 mg every 4 hours as needed for pain. 8. Senna two tabs at bedtime. 9. Metoprolol Tartrate 12.5 mg twice daily. 10. Gabapentin 100 mg twice daily. 11. Docusate 100 mg twice daily. 12. Amoxicillin 500 mg for 9 additional days. PROCEDURES PERFORMED DURING HOSPITAL STAY: Left lower extremity TMA on 05/10/[address] Dyson. PERTINENT MICROBIOLOGY: Microbiology of left foot positive for enterococcus faecalis. PERTINENT LABORATORY DATA: Hemoglobin on the day of discharge 7.4. AT FOLLOW-UP, PLEASE: 1. The patient should have a follow-up with Dr. Dyson in the next one to two weeks, around May 24, at which time his dressing should be changed. Number to contact for follow-up is included in d ischarge instructions. 2. Titrate pain medications down as tolerated. 3. Ensure continued adequate access to dialysis. 4. Continue antibiotics for nine additional days, to be continued further if deemed necessary. HISTORY OF PRESENT ILLNESS AND HOSPITAL COURSE: This is a 52-year-old man with a complex past medica l history including end-stage renal disease, recent right transmetatarsal amputation last year, and a borted surgery on his left foot after preop hypoxemia who presented to the hospital with shortness of breath. He was found with pulmonary vascular congestion requiring dialysis and 4 liters of fluid re moval. His previous anemia was thought in the setting of a gastric ulcer, which he had undergone an EGD on 05/01/2017. He will be continued on his proton pump inhibitor twice daily, as well as his ant ihistamine. He received two units of packed red blood cells during his hospital stay on 05/09/2017. He will continue with Epogen with hemodialysis. Folate and B12 levels were noted to be normal in 2016. His blood pressure was well-maintained during the course of his hospital stay. Norvasc and Metoprolol with above doses continued on discharge. His necrotic left foot across the site of hi s previous amputation was positive for enterococcus faecalis and was treated with Ceftriaxone and the n transitioned to Amoxicillin on 05/11/2017 to continue for nine additional days upon discharge. He underwent a transmetatarsal amputation with Dr. Dyson on the may as indicated above. Li gomez worked well with physical therapy while in the hospital. He should remain nonweightbearing, can us e a scooter for continued rehabilitation. He should follow-up with Dr. Dyson around May 24 fo r changing of his cast and dressing. There were no complications during this patient's hospital stay . REASONS TO RETURN TO THE HOSPITAL: Including, but not limited to recurrent or worsening symptoms inc luding shortness of breath, chest pain, nausea, vomiting, lightheadedness, loss of consciousness, ble eding from any source, fevers, chills, and night sweats were discussed with the patient and he acknow ledged understanding. Greater than 60 minutes were spent in the discharge of this patient with greater than half spent face -to-face with the patient. [id number]/[facility] #: [id number]
[2017-05-18] MEDS: Atorvastatin* 10 MG TAB PO SCH (18:00)
== END 2017-05-18 18:30 | DRG 305 ==
LOC: ED 07:45 → MEDTELE 10:20
PROVIDERS: ADMIT Internal Medicine; ATTEND Internal Medicine
PROC: 5A1D70Z Performance of Urinary Filtration, Intermittent, Less than 6 Hours Per Day (ICD-10-PCS; principal; 2017-05-07)
PROC: 5A1D70Z Performance of Urinary Filtration, Intermittent, Less than 6 Hours Per Day (ICD-10-PCS; 2017-05-09)
PROC: 30233N1 Transfusion of Nonautologous Red Blood Cells into Peripheral Vein, Percutaneous Approach (ICD-10-PCS; 2017-05-09)
PROC: 0Y6N0Z0 Detachment at Left Foot, Complete, Open Approach (ICD-10-PCS; 2017-05-10)
PROC: 0LXW0ZZ Transfer Left Foot Tendon, Open Approach (ICD-10-PCS; 2017-05-10)
PROC: 0L8P0ZZ Division of Left Lower Leg Tendon, Open Approach (ICD-10-PCS; 2017-05-10)
PROC: 5A1D70Z Performance of Urinary Filtration, Intermittent, Less than 6 Hours Per Day (ICD-10-PCS; 2017-05-11)
PROC: 5A1D70Z Performance of Urinary Filtration, Intermittent, Less than 6 Hours Per Day (ICD-10-PCS; 2017-05-14)
PROC: 5A1D70Z Performance of Urinary Filtration, Intermittent, Less than 6 Hours Per Day (ICD-10-PCS; 2017-05-16)
PROC: 5A1D70Z Performance of Urinary Filtration, Intermittent, Less than 6 Hours Per Day (ICD-10-PCS; 2017-05-18)
DX: E11.52 Type 2 diabetes mellitus with diabetic peripheral angiopathy with gangrene (principal); N18.6 End stage renal disease; J96.01 Acute respiratory failure with hypoxia; J90 Pleural effusion, not elsewhere classified; E11.22 Type 2 diabetes mellitus with diabetic chronic kidney disease; E11.40 Type 2 diabetes mellitus with diabetic neuropathy, unspecified; I96 Gangrene, not elsewhere classified; D62 Acute posthemorrhagic anemia; I12.0 Hypertensive chronic kidney disease with stage 5 chronic kidney disease or end stage renal disease; M86.9 Osteomyelitis, unspecified; F05 Delirium due to known physiological condition; E78.5 Hyperlipidemia, unspecified; M10.9 Gout, unspecified; I08.0 Rheumatic disorders of both mitral and aortic valves; I27.20 Pulmonary hypertension, unspecified; E11.621 Type 2 diabetes mellitus with foot ulcer; L97.529 Non-pressure chronic ulcer of other part of left foot with unspecified severity; E87.70 Fluid overload, unspecified; E87.5 Hyperkalemia; D75.89 Other specified diseases of blood and blood-forming organs; J45.909 Unspecified asthma, uncomplicated; J30.2 Other seasonal allergic rhinitis; M19.042 Primary osteoarthritis, left hand; M19.041 Primary osteoarthritis, right hand; F32.9 Major depressive disorder, single episode, unspecified; E11.69 Type 2 diabetes mellitus with other specified complication; B95.2 Enterococcus as the cause of diseases classified elsewhere; D63.1 Anemia in chronic kidney disease; R07.9 Chest pain, unspecified; K25.9 Gastric ulcer, unspecified as acute or chronic, without hemorrhage or perforation; E66.9 Obesity, unspecified; Z99.2 Dependence on renal dialysis; Z89.431 Acquired absence of right foot; Z89.422 Acquired absence of other left toe(s); Z68.33 Body mass index [BMI] 33.0-33.9, adult; Z87.01 Personal history of pneumonia (recurrent); Z80.0 Family history of malignant neoplasm of digestive organs; Z80.8 Family history of malignant neoplasm of other organs or systems; Z83.49 Family history of other endocrine, nutritional and metabolic diseases; Z83.3 Family history of diabetes mellitus; Z82.49 Family history of ischemic heart disease and other diseases of the circulatory system; Z72.89 Other problems related to lifestyle
CPT/HCPCS: 36415; 71046; 71275; 80048; 80053; 82270; 83605; 83880; 84145; 84484; 85025; 85045; 85610; 86140; 86850; 86900; 86901; 86922; 87070; 87077; 87186; 87205; 87640; 87641; 88305; 88311; 90935; 93005; 94760; 99284; A9270-GY; G0257; J0696; J0885; J2250; J2270; J2405; J2704; J2765; J3010; P9040; Q9967

== ENCOUNTER 2017-05-21 17:02 | Emergency (ER) | payer BC, MEDICARE ==
--- NOTE | 2017-05-21 22:09 | ED ---
Rebekah Reilly Edward, scribed for Cale Ricketts MD on 05/21/17 at 1748 . Complex/Multi-Sys Presentation - HPI Summary HPI Summary: 52 y/o male BIBA for a blood transfusion. Pt c/o dark stools. Pt is otherwise asymptomatic at this time. Pt states he has a bleeding ulcer. Pt states he was sent by Dr. Vicente. Pt is in the fpc s/p removal of part of his foot last week here at [facility]. PMHx DM. Pt has been on dialysis since January 2017. Pt states he had 2 blood transfusions last week. - History Of Current Complaint Chief Complaint: EDGeneral Time Seen by Provider: 05/21/17 17:45 Hx Obtained From: Patient Severity Currently: None Associated Signs And Symptoms: Positive: Other - dark stools Related History: Recent Hospitalization - Sx removal of part of L foot - Allergies/Home Medications Allergies/Adverse Reactions: Allergies Allergy/AdvReac Type Severity Reaction Status Date / Time No Known Allergies Allergy Verified 03/29/17 16:25 PMH/Surg Hx/FS Hx/Imm Hx Previously Healthy: No Endocrine/Hematology History: Reports: Hx Diabetes, Hx Anemia - WAS TRANSUSED LAST HOSP Denies: Hx Anticoagulant Therapy, Hx Thyroid Disease Cardiovascular History: Reports: Hx Angina - "tightness", "like congestion", Hx Hypercholesterolemia, Hx Hypertension, Other Cardiovascular Problems/Disorders - HIGH CHOLESTEROL Denies: Hx Congestive Heart Failure, Hx Coronary Artery Disease, Hx Deep Vein Thrombosis, Hx Myocardial Infarction, Hx Pacemaker/ICD, Hx Valvular Heart Disease Respiratory History: Reports: Hx Asthma - WAS IN HOSP FEB 2017, Hx Seasonal Allergies Denies: Hx Chronic Obstructive Pulmonary Disease (COPD), Hx Lung Cancer GI History: Denies: Hx Gall Bladder Disease, Hx Gastrointestinal Bleed, Hx Ulcer, Hx Urosepsis History: Reports: Hx Dialysis, Hx Renal Disease Denies: Hx Kidney Stones, Other Problems/Disorders - end stage renal disease Musculoskeletal History: Reports: Hx Arthritis - HANDS, Hx Gout, Other Musculoskeletal History - right toes amputated Sensory History: Reports: Hx Contacts or Glasses - GLASSES Denies: Hx Cataracts, Hx Glaucoma, Hx Hearing Aid Opthamlomology History: Reports: Hx Contacts or Glasses - GLASSES Denies: Hx Cataracts, Hx Glaucoma Neurological History: Denies: Hx Dementia, Hx Migraine, Hx Seizures, Hx Transient Ischemic Attacks (TIA) Psychiatric History: Reports: Hx Depression - DUE TO WIFES Denies: Hx Anxiety, Hx Attention Deficit Hyperactivity Disorder, Hx Eating Disorder, Hx Panic Disorder, Hx Post Traumatic Stress Disorder, Hx Inpatient Treatment, Hx Community Mental Health Tx, Hx Schizophrenia, Hx Bipolar Disorder , Hx Suicide Attempt, Hx of Violent Episodes Against Others, Hx Substance Abuse , Other Psychiatric Issues/Disorders - Surgical History Surgery Procedure, Year, and Place: left second toe amputation 2009. Left ankle ORIF. RIGHT GREAT TOE AMPUTATION 2012, ALL OTHER TOES AMPUTATED 12/2014. HERNIA A CHILD Hx Anesthesia Reactions: No Infectious Disease History: No Infectious Disease History: Reports: Hx Shingles - HAD 8 YEAS AGO Denies: Hx Clostridium Difficile, Hx Hepatitis, Hx Human Immunodeficiency Virus (HIV), Hx of Known/Suspected MRSA, Hx Tuberculosis, History Other Infectious Disease, Traveled Outside the [place] in Last 30 Days - Family History Known Family History: Positive: None, Hypertension - Social History Alcohol Use: None Hx Substance Use: No Substance Use Type: Reports: None Hx Tobacco Use: No Smoking Status (MU): Never Smoked Tobacco Have You Smoked in the Last Year: No Review of Systems Constitutional: Negative Eyes: Negative ENT: Negative Cardiovascular: Negative Respiratory: Negative Positive: Other - dark stool Genitourinary: Negative Musculoskeletal: Negative Skin: Negative Neurological: Negative Psychological: Normal All Other Systems Reviewed And Are Negative: Yes Physical Exam - Summary Physical Exam Summary: Appearance: The patient is well-nourished in no acute distress and in no acute pain. Skin: The skin is warm and dry and skin color reflects adequate perfusion. HEENT: The head is normocephalic and atraumatic. The pupils are equal and reactive. The conjunctivae are clear and without drainage. Nares are patent and without drainage. Mouth reveals moist mucous membranes and the throat is without erythema and exudate. The external ears are intact. The ear canals are patent and without drainage. The tympanic membranes are intact. Neck: the neck is supple with full range of motion and non-tender. There are no carotid bruits. There is no neck vein distension. Respiratory: Chest is non-tender. Lungs are clear to auscultation and breath sounds are symmetrical and equal. Cardiovascular: Heart is regular rate and rhythm. There is no murmur or rub auscultated. There is no peripheral edema and pulses are symmetrical and equal. Abdomen: The abdomen is soft and non-tender. There are normal bowel sounds heard in all four quadrants and there is no organomegaly palpated. Musculoskeletal: There is no back tenderness noted. Extremities are non-tender with full range of motion. There is good capillary refill. There is no peripheral edema or calf tenderness elicited. Neurological: Patient is alert and oriented to person, place and time. The patient has symmetrical motor strength in all four extremities. Cranial nerves are grossly intact. Deep tendon reflexes are symmetrical and equal in all four extremities. Psychiatric: The patient has an appropriate affect and does not exhibit any anxiety or depression. Triage Information Reviewed: Yes Vital Signs On Initial Exam: Initial Vitals Temp Pulse Resp BP Pulse Ox 98.1 F 58 18 123/74 100 05/21/17 17:05 05/21/17 17:05 05/21/17 17:05 05/21/17 17:05 05/21/17 17:05 Vital Signs Reviewed: Yes Diagnostics - Vital Signs Vital Signs Temp Pulse Resp BP Pulse Ox 05/21/17 17:05 98.1 F 58 18 123/74 100 - Laboratory Lab Results: Lab Results 05/21/17 Range/Units 07:00 Blood Type A Positive Antibody Screen Negative Crossmatch See Detail Lab Statement: Any lab studies that have been ordered have been reviewed, and results considered in the medical decision making process. Complex Multi-Symp Course/Dx Course Of Treatment: Mr. Singletary was sent over by Dr. Johnson for a transfusion which he got in the ED. He remained stable and was D/C'd in stable condition. - Diagnoses Provider Diagnoses: Anemia - Physician Notifications Discussed Care Of Patient With: Chema Dukes Time Discussed With Above Provider: 18:05 Instructed by Provider To: MD Will See In ED Discharge - Discharge Plan Condition: Stable Disposition: HOME Patient Education Materials: Anemia (ED) Referrals: Lety Vasquez [Primary Care Provider] - If Needed Sreekanth Johnson MD [Medical Doctor] - 2 Days Additional Instructions: RETURN TO THE ED FOR WORSENING SYMPTOMS The documentation as recorded by the Rebekah peoples Edward accurately reflects the service I personally performed and the decisions made by , Cale Ricketts MD.
[2017-05-21 23:40] VITALS: BP 134/67
== END 2017-05-22 00:14 | disposition home or self-care (01) ==
LOC: ED 17:02
DX: D64.9 Anemia, unspecified (principal)
CPT/HCPCS: 36415; 86850; 86900; 86901; 86922; 99284; P9040

== ENCOUNTER 2017-07-28 15:58 | Emergency (ER) | payer BC, MEDICARE ==
--- NOTE | 2017-07-28 16:51 | RAD ---
HISTORY: Chest pain COMPARISONS: May 07, 2017 VIEWS: 1: frontal portable view of the chest at 4:15 PM FINDINGS: LINES AND TUBES: A right-sided internal jugular venous catheter is noted with the tip overlying the superior vena cava. CARDIOMEDIASTINAL SILHOUETTE: The cardiomediastinal silhouette is normal for portable technique. PLEURA: The costophrenic angles are sharp. No pleural abnormalities are noted. LUNG PARENCHYMA: The lungs are clear. ABDOMEN: The upper abdomen is clear. There is no subphrenic gas. BONES AND SOFT TISSUES: Degenerative changes are noted along the spine. IMPRESSION: NO ACTIVE CARDIOPULMONARY DISEASE.
[2017-07-28 17:19] LABS: ABS Basophils 0.1 10^3/ul (0-0.2); ABS Eosinophils 0.1 10^3/ul (0-0.6); ABS Lymphocytes 1.8 10^3/ul (1.0-4.8); ABS Neutrophils 5.7 10^3/ul (1.5-7.7); ABS Nucleated RBC 0 10^3/ul; Eosinophil % 0.9 % (0-6); Hematocrit 36 % (42-52); Hemoglobin 12.5 g/dl (14.0-18.0); Lymphocyte % 20.6 % (25-47); Mean Corpuscular HGB Conc 35 g/dl (31-36); Mean Corpuscular Hemoglobin 34 pg (27-31); Mean Corpuscular Volume 99 fL (80-94); Mean Platelet Volume 7.9 um3 (7.4-10.4); Nucleated Red Blood Cells % 0; Platelet Count 202 10^3/ul (150-450); Red Blood Count 3.68 10^6/ul (4.0-5.4); Red Cell Distribution Width 18 % (10.5-15); White Blood Count 8.7 10^3/ul (3.5-10.8)
[2017-07-28 17:27] LABS: INR 1.2 (0.77-1.02)
[2017-07-28 17:38] LABS: EGFR Non-African American 11.2 (>60)
[2017-07-28] MEDS ORDERED: Potassium Chlor TAB* 20 MEQ TAB.ER PO ONE (18:31)
[2017-07-28 22:03] VITALS: BP 127/73
--- NOTE | 2017-07-29 10:12 | ED ---
Nasim Reilly Tenzin, scribed for Cale Ricketts MD on 07/28/17 at 1633 . HPI Chest Pain - HPI Summary HPI Summary: Pt is a 52 years old male brought in by ambulance after complaints of chest pain that started few hours ago when he was getting his dialysis. The pt reports that at initial he felt cramping in his legs, and then pain to his abdomen and to his chest. He notes that the chest pain is intermittent and describe it as "shooting across my chest and armpits". The pt is additionally complaining of shortness of breath. He denies any exacerbated condition. He also reports of visiting ED last february with complaints of fluid build up in his chest from "drinking too much". - History of Current Complaint Chief Complaint: EDChestPainROMI Time Seen by Provider: 07/28/17 16:01 Hx Obtained From: Patient Onset/Duration: Started Hours Ago, Still Present Timing: Constant Initial Severity: Mild Current Severity: Mild Pain Intensity: 0 Pain Scale Used: 0-10 Numeric Chest Pain Location: Diffuse Character: Other: - Intermittent Shooting chest pain. Aggravating Factor(s): Nothing Alleviating Factor(s): Nothing Associated Signs and Symptoms: Positive: Chest Pain, Shortness of Breath, Other : - Postive for leg cramping and pain in abdomen. - Additional Pertinent History Primary Care Physician: [place] - Allergy/Home Medications Allergies/Adverse Reactions: Allergies Allergy/AdvReac Type Severity Reaction Status Date / Time No Known Allergies Allergy Verified 03/29/17 16:25 PMH/Surg Hx/FS Hx/Imm Hx Endocrine/Hematology History: Reports: Hx Diabetes, Hx Anemia - WAS TRANSUSED LAST HOSP Denies: Hx Anticoagulant Therapy, Hx Thyroid Disease Cardiovascular History: Reports: Hx Angina - "tightness", "like congestion", Hx Hypercholesterolemia, Hx Hypertension, Other Cardiovascular Problems/Disorders - HIGH CHOLESTEROL Denies: Hx Congestive Heart Failure, Hx Coronary Artery Disease, Hx Deep Vein Thrombosis, Hx Myocardial Infarction, Hx Pacemaker/ICD, Hx Valvular Heart Disease Respiratory History: Reports: Hx Asthma - WAS IN HOSP FEB 2017, Hx Seasonal Allergies Denies: Hx Chronic Obstructive Pulmonary Disease (COPD), Hx Lung Cancer GI History: Denies: Hx Gall Bladder Disease, Hx Gastrointestinal Bleed, Hx Ulcer, Hx Urosepsis History: Reports: Hx Dialysis, Hx Renal Disease Denies: Hx Kidney Stones, Other Problems/Disorders - end stage renal disease Musculoskeletal History: Reports: Hx Arthritis - HANDS, Hx Gout, Other Musculoskeletal History - right toes amputated Sensory History: Reports: Hx Contacts or Glasses - GLASSES Denies: Hx Cataracts, Hx Glaucoma, Hx Hearing Aid Opthamlomology History: Reports: Hx Contacts or Glasses - GLASSES Denies: Hx Cataracts, Hx Glaucoma Neurological History: Denies: Hx Dementia, Hx Migraine, Hx Seizures, Hx Transient Ischemic Attacks (TIA) Psychiatric History: Reports: Hx Depression - DUE TO WIFES Denies: Hx Anxiety, Hx Attention Deficit Hyperactivity Disorder, Hx Eating Disorder, Hx Panic Disorder, Hx Post Traumatic Stress Disorder, Hx Inpatient Treatment, Hx Community Mental Health Tx, Hx Schizophrenia, Hx Bipolar Disorder , Hx Suicide Attempt, Hx of Violent Episodes Against Others, Hx Substance Abuse , Other Psychiatric Issues/Disorders - Surgical History Surgery Procedure, Year, and Place: left second toe amputation 2009. Left ankle ORIF. RIGHT GREAT TOE AMPUTATION 2012, ALL OTHER TOES AMPUTATED 12/2014. HERNIA A CHILD Hx Anesthesia Reactions: No Infectious Disease History: No Infectious Disease History: Reports: Hx Shingles - HAD 8 YEAS AGO Denies: Hx Clostridium Difficile, Hx Hepatitis, Hx Human Immunodeficiency Virus (HIV), Hx of Known/Suspected MRSA, Hx Tuberculosis, History Other Infectious Disease, Traveled Outside the [place] in Last 30 Days - Family History Known Family History: Positive: None, Hypertension - Social History Alcohol Use: None Hx Substance Use: No Substance Use Type: Reports: None Hx Tobacco Use: No Smoking Status (MU): Never Smoked Tobacco Have You Smoked in the Last Year: No Review of Systems Positive: Chest Pain Positive: Shortness Of Breath Positive: Abdominal Pain Positive: Other - Cramping in his legs. All Other Systems Reviewed And Are Negative: Yes Physical Exam - Summary Physical Exam Summary: Appearance: The patient is well-nourished in no acute distress and in no acute pain. Skin: The skin is warm and dry and skin color reflects adequate perfusion. HEENT: The head is normocephalic and atraumatic. The pupils are equal and reactive. The conjunctivae are clear and without drainage. Nares are patent and without drainage. Mouth reveals moist mucous membranes and the throat is without erythema and exudate. The external ears are intact. The ear canals are patent and without drainage. The tympanic membranes are intact. Neck: the neck is supple with full range of motion and non-tender. There are no carotid bruits. There is no neck vein distension. Respiratory: He is mildly tender in his right interior chest. Lungs are clear to auscultation and breath sounds are symmetrical and equal. Cardiovascular: Heart is regular rate and rhythm. There is no murmur or rub auscultated. There is no peripheral edema and pulses are symmetrical and equal. Abdomen: The abdomen is soft and non-tender. There are normal bowel sounds heard in all four quadrants and there is no organomegaly palpated. Musculoskeletal: There is no back tenderness noted. Extremities are non-tender with full range of motion. There is good capillary refill. There is no peripheral edema or calf tenderness elicited. Neurological: Patient is alert and oriented to person, place and time. The patient has symmetrical motor strength in all four extremities. Cranial nerves are grossly intact. Deep tendon reflexes are symmetrical and equal in all four extremities. Psychiatric: The patient has an appropriate affect and does not exhibit any anxiety or depression. Triage Information Reviewed: Yes Vital Signs On Initial Exam: Initial Vitals Temp Pulse Resp BP Pulse Ox 98.9 F 72 17 137/86 97 07/28/17 16:00 07/28/17 16:00 07/28/17 16:00 07/28/17 16:00 07/28/17 16:00 Vital Signs Reviewed: Yes Diagnostics - Vital Signs Vital Signs Temp Pulse Resp BP Pulse Ox 07/28/17 16:00 98.9 F 72 17 137/86 97 - Laboratory Lab Results: Lab Results 07/28/17 07/28/17 07/28/17 Range/Units 17:11 17:11 17:11 WBC 8.7 (3.5-10.8) 10^3/ul RBC 3.68 L (4.0-5.4) 10^6/ul Hgb 12.5 L (14.0-18.0) g/dl Hct 36 L (42-52) % MCV 99 H (80-94) fL MCH 34 H (27-31) pg MCHC 35 (31-36) g/dl RDW 18 H (10.5-15) % Plt Count 202 (150-450) 10^3/ul MPV 7.9 (7.4-10.4) um3 Neut % (Auto) 66.1 (38-83) % Lymph % (Auto) 20.6 L (25-47) % Russell % (Auto) 11.7 H (0-7) % Eos % (Auto) 0.9 (0-6) % Baso % (Auto) 0.7 (0-2) % Absolute Neuts (auto) 5.7 (1.5-7.7) 10^3/ul Absolute Lymphs (auto) 1.8 (1.0-4.8) 10^3/ul Absolute Monos (auto) 1.0 H (0-0.8) 10^3/ul Absolute Eos (auto) 0.1 (0-0.6) 10^3/ul Absolute Basos (auto) 0.1 (0-0.2) 10^3/ul Absolute Nucleated RBC 0 10^3/ul Nucleated RBC % 0 INR (Anticoag Therapy) (0.77-1.02) Sodium 134 L (139-145) mmol/L Potassium 3.2 L (3.5-5.0) mmol/L Chloride 89 L (101-111) mmol/L Carbon Dioxide 32 (22-32) mmol/L Anion Gap 13 H (2-11) mmol/L BUN 19 (6-24) mg/dL Creatinine 5.39 H (0.67-1.17) mg/dL Est GFR ( Amer) 14.4 (>60) Est GFR (Non-Af Amer) 11.2 (>60) BUN/Creatinine Ratio 3.5 L (8-20) Glucose 94 (70-100) mg/dL Lactic Acid 1.9 (0.5-2.0) mmol/L Calcium 9.3 (8.6-10.3) mg/dL Total Bilirubin 0.70 (0.2-1.0) mg/dL AST 13 (13-39) U/L ALT 9 (7-52) U/L Alkaline Phosphatase 107 H (34-104) U/L Troponin I 0.04 H* (<0.04) ng/mL B-Natriuretic Peptide ( - 100) pg/mL Total Protein 7.6 (6.4-8.9) g/dL Albumin 4.3 (3.2-5.2) g/dL Globulin 3.3 (2-4) g/dL Albumin/Globulin Ratio 1.3 (1-3) TSH 1.44 (0.34-5.60) mcIU/mL 07/28/17 07/28/17 07/28/17 Range/Units 17:11 17:11 19:01 WBC (3.5-10.8) 10^3/ul RBC (4.0-5.4) 10^6/ul Hgb (14.0-18.0) g/dl Hct (42-52) % MCV (80-94) fL MCH (27-31) pg MCHC (31-36) g/dl RDW (10.5-15) % Plt Count (150-450) 10^3/ul MPV (7.4-10.4) um3 Neut % (Auto) (38-83) % Lymph % (Auto) (25-47) % Russell % (Auto) (0-7) % Eos % (Auto) (0-6) % Baso % (Auto) (0-2) % Absolute Neuts (auto) (1.5-7.7) 10^3/ul Absolute Lymphs (auto) (1.0-4.8) 10^3/ul Absolute Monos (auto) (0-0.8) 10^3/ul Absolute Eos (auto) (0-0.6) 10^3/ul Absolute Basos (auto) (0-0.2) 10^3/ul Absolute Nucleated RBC 10^3/ul Nucleated RBC % INR (Anticoag Therapy) 1.20 H (0.77-1.02) Sodium (139-145) mmol/L Potassium (3.5-5.0) mmol/L Chloride (101-111) mmol/L Carbon Dioxide (22-32) mmol/L Anion Gap (2-11) mmol/L BUN (6-24) mg/dL Creatinine (0.67-1.17) mg/dL Est GFR ( Amer) (>60) Est GFR (Non-Af Amer) (>60) BUN/Creatinine Ratio (8-20) Glucose (70-100) mg/dL Lactic Acid (0.5-2.0) mmol/L Calcium (8.6-10.3) mg/dL Total Bilirubin (0.2-1.0) mg/dL AST (13-39) U/L ALT (7-52) U/L Alkaline Phosphatase (34-104) U/L Troponin I 0.03 (<0.04) ng/mL B-Natriuretic Peptide 39 ( - 100) pg/mL Total Protein (6.4-8.9) g/dL Albumin (3.2-5.2) g/dL Globulin (2-4) g/dL Albumin/Globulin Ratio (1-3) TSH (0.34-5.60) mcIU/mL Result Diagrams: 07/28/17 17:11 07/28/17 17:11 Lab Statement: Any lab studies that have been ordered have been reviewed, and results considered in the medical decision making process. - Radiology CXR Xray Interpretation: No Acute Changes - Impression: No active cardiopulmonary disease. Dr. Ricketts reviewed the report. Radiology Interpretation Completed By: Radiologist - EKG 16:09 Cardiac Rate: NL - at 68 BPM Ectopy: None Chest Pain Course/Dx - Course Course Of Treatment: Mr. Singletary presents C/O cramping that started in his toes and worked its way up his legs and abdomen and went to his chest. Initially, it was during dialysis but it continued for an hour after while they watched him and so he was sent to the ED. His ECG and trops were fine but his K was a little low at 3.2. I cautiously replaced that. - Diagnoses Provider Diagnoses: Chest pain Discharge - Sign-Out/Discharge Documenting (check all that apply): Sign-Out Patient Signing out patient TO: Cale Her - awaiting on troponin results. - Discharge Plan Condition: Good Disposition: HOME Patient Education Materials: Noncardiac Chest Pain (ED) Referrals: Rosalio JARVIS,Lety Hyde [Primary Care Provider] - - Billing Disposition and Condition Condition: GOOD Disposition: HOME The documentation as recorded by the Nasim peoples Tenzin accurately reflects the service I personally performed and the decisions made by me, Cale Ricketts MD.
--- NOTE | 2017-08-02 01:01 | ED ---
Alistair Reilly Julia, scribed for Cale Her MD on 07/28/17 at 2026 . Progress - Progress Note Progress Note: Patient is signed out from Dr. Ricketts, awaiting a second Troponin results. Course/Dx - Diagnoses Provider Diagnoses: Chest pain Discharge - Sign-Out/Discharge Documenting (check all that apply): Discharge/Admit/Transfer, Receiving Sign-Out Receiving patient FROM: Cale Ricketts - Discharge Plan Condition: Good Disposition: HOME Patient Education Materials: Noncardiac Chest Pain (ED) Referrals: Lety Vasquez [Primary Care Provider] - - Billing Disposition and Condition Condition: GOOD Disposition: HOME The documentation as recorded by the Alistair peoples Julia accurately reflects the service I personally performed and the decisions made by Arden banegas Richard, MD.
== END 2017-07-28 22:06 | disposition home or self-care (01) ==
LOC: ED 15:58
DX: R07.9 Chest pain, unspecified (principal); Z99.2 Dependence on renal dialysis
CPT/HCPCS: 36415; 71045; 80053; 83605; 83880; 84443; 84484; 85025; 85610; 93005; 99283; A9270-GY

== ENCOUNTER 2018-06-21 15:57 | Emergency (ER) | payer BC, MEDICARE ==
[2018-06-21] MEDS ORDERED: Metoprolol Tartrate TAB* 50 mg PO ONE (20:08)
--- NOTE | 2018-06-21 20:11 | ED ---
Hypertension - HPI Summary HPI Summary: The patient is a 53 year old male who is presenting to the [facility] via ambulance with a chief compliant of hypertension. He is accompanied by one other (female) person. The patient had a high blood pressure during his visit with his primary care physician today. The patient was visiting his primary care physician in order to receive a dialysis. The dialysis was done at 0600 this morning and 2 liters were processed. The blood pressure was reportedly 201/108 as per triage report. He has not taken his blood pressure medication (Metropolol 50 a day) today. The patient denies chest pain and SOB. The pain is 0/10 in severity. Symptoms aggravated by nothing. Symptoms alleviated by nothing. He also reports of diarrhea for the past several weeks. - History of Current Complaint Chief Complaint: EDHypertension Stated Complaint: HIGH BLOOD PRESSURE PER PT Hx Obtained From: Patient Onset/Duration: Started Hours Ago - 0600 today Timing: Constant Aggravating Factor(s): Nothing Alleviating Factor(s): Nothing Associated Signs & Symptoms: Negative - Allergies/Home Medications Allergies/Adverse Reactions: Allergies Allergy/AdvReac Type Severity Reaction Status Date / Time No Known Allergies Allergy Verified 06/21/18 16:10 Home Medications: Home Medications Vitamin B Complex CAP* [B Complex CAP*] 1 cap PO DAILY 06/21/18 [History Confirmed 06/21/18] PMH/Surg Hx/FS Hx/Imm Hx Endocrine/Hematology History: Reports: Hx Diabetes, Hx Anemia - WAS TRANSUSED LAST HOSP Denies: Hx Anticoagulant Therapy, Hx Thyroid Disease Cardiovascular History: Reports: Hx Angina - "tightness", "like congestion", Hx Hypercholesterolemia, Hx Hypertension, Other Cardiovascular Problems/Disorders - HIGH CHOLESTEROL Denies: Hx Congestive Heart Failure, Hx Coronary Artery Disease, Hx Deep Vein Thrombosis, Hx Myocardial Infarction, Hx Pacemaker/ICD, Hx Valvular Heart Disease Respiratory History: Reports: Hx Asthma - WAS IN HOSP FEB 2017, Hx Seasonal Allergies Denies: Hx Chronic Obstructive Pulmonary Disease (COPD), Hx Lung Cancer GI History: Denies: Hx Gall Bladder Disease, Hx Gastrointestinal Bleed, Hx Ulcer, Hx Urosepsis History: Reports: Hx Dialysis, Hx Renal Disease Denies: Hx Kidney Stones, Other Problems/Disorders - end stage renal disease Musculoskeletal History: Reports: Hx Arthritis - HANDS, Hx Gout, Other Musculoskeletal History - right toes amputated Denies: Hx Osteoporosis Sensory History: Reports: Hx Contacts or Glasses - GLASSES, Hx Vision Problem Denies: Hx Cataracts, Hx Glaucoma, Hx Hearing Aid Opthamlomology History: Reports: Hx Contacts or Glasses - GLASSES, Hx Vision Problem Denies: Hx Cataracts, Hx Glaucoma Neurological History: Denies: Hx CVA, Hx Dementia, Hx Migraine, Hx Seizures, Hx Transient Ischemic Attacks (TIA) Psychiatric History: Reports: Hx Depression - DUE TO WIFES Denies: Hx Anxiety, Hx Attention Deficit Hyperactivity Disorder, Hx Eating Disorder, Hx Panic Disorder, Hx Post Traumatic Stress Disorder, Hx Inpatient Treatment, Hx Community Mental Health Tx, Hx Schizophrenia, Hx Bipolar Disorder , Hx Suicide Attempt, Hx of Violent Episodes Against Others, Hx Substance Abuse , Other Psychiatric Issues/Disorders - Surgical History Surgery Procedure, Year, and Place: left second toe amputation 2009. Left ankle ORIF. RIGHT GREAT TOE AMPUTATION 2012, ALL OTHER TOES AMPUTATED 12/2014. HERNIA A CHILD. dialysis catheter. Hx Anesthesia Reactions: No Infectious Disease History: No Infectious Disease History: Reports: Hx Shingles - HAD 8 YEAS AGO Denies: Hx Clostridium Difficile, Hx Hepatitis, Hx Human Immunodeficiency Virus (HIV), Hx of Known/Suspected MRSA, Hx Tuberculosis, History Other Infectious Disease, Traveled Outside the [place] in Last 30 Days - Family History Known Family History: Positive: Hypertension, Diabetes - Social History Alcohol Use: None Hx Substance Use: No Substance Use Type: Reports: None Hx Tobacco Use: No Smoking Status (MU): Never Smoked Tobacco Have You Smoked in the Last Year: No Review of Systems Constitutional: Negative Eyes: Negative ENT: Negative Cardiovascular: Other - Hypertension Negative: Chest Pain Negative: Shortness Of Breath Positive: Diarrhea Genitourinary: Negative Musculoskeletal: Negative Skin: Negative Neurological: Negative Psychological: Normal All Other Systems Reviewed And Are Negative: Yes Physical Exam - Summary Physical Exam Summary: VITAL SIGNS: Reviewed. GENERAL: Patient is a well-developed and nourished (MALE) who is lying comfortable in the stretcher. Patient is not in any acute respiratory distress. HEAD AND FACE: No signs of trauma. No ecchymosis, hematomas or skull depressions. No sinus tenderness. EYES: PERRLA, EOMI x 2, No injected conjunctiva, no nystagmus. EARS: Hearing grossly intact. Ear canals and tympanic membranes are within normal limits. MOUTH: Oropharynx within normal limits. NECK: Supple, trachea is midline, no adenopathy, no JVD, no carotid bruit, no c- spine tenderness, neck with full ROM. CHEST: Symmetric, no tenderness at palpation LUNGS: Clear to auscultation bilaterally. No wheezing or crackles. CVS: 2 over 6 systolic murmur right sternal border; AV Fistula in left upper arm with good thrill. ABDOMEN: Soft, non-tender. No signs of distention. No rebound no guarding, and no masses palpated. Bowel sounds are normal. EXTREMITIES: FROM in all major joints, no edema, no cyanosis or clubbing. NEURO: Alert and oriented x 3. No acute neurological deficits. Speech is normal and follows commands. SKIN: Dry and warm Triage Information Reviewed: Yes Vital Signs On Initial Exam: Initial Vitals Temp Pulse Resp BP Pulse Ox 99.1 F 103 16 183/87 98 06/21/18 16:10 06/21/18 16:10 06/21/18 16:10 06/21/18 16:10 06/21/18 16:10 Vital Signs Reviewed: Yes Diagnostics - Vital Signs Vital Signs Temp Pulse Resp BP Pulse Ox 06/21/18 19:47 89 212/100 96 06/21/18 19:17 84 185/93 97 06/21/18 19:01 83 98 06/21/18 18:47 82 188/88 94 06/21/18 18:31 86 96 06/21/18 17:54 99.4 F 76 18 191/95 96 06/21/18 16:10 99.1 F 103 16 183/87 98 - Laboratory Lab Statement: Any lab studies that have been ordered have been reviewed, and results considered in the medical decision making process. Hypertension Course/Dx - Course Course Of Treatment: The patient is a 53 year old male who is presenting to the [facility] with a chief complaint of HTN. The patient was seen today by his primary care physician for a dialysis appointment in which his blood pressure was seen to be 201/108. The patient states that he has not taken his blood pressure medication today (metropolol). The patient will recieve Metropolol and is recommended to take his correct dosage at home as well. He is recommended to follow up with his primary care physician within 2 to 3 days. The patient is agreeable to this discharge plan. The dx will be HTN. - Diagnoses Provider Diagnoses: HTN (hypertension) Discharge - Sign-Out/Discharge Documenting (check all that apply): Patient Departure - Discharge Home Patient Received Moderate/Deep Sedation with Procedure: No - Discharge Plan Condition: Stable Disposition: HOME Patient Education Materials: Hypertension (ED) Referrals: Lety Vasquez [Primary Care Provider] - Additional Instructions: PLEASE RETURN TO THE ED IMMEDIATELY FOR WORSENING OR CONCERNING SYMPTOMS. FOLLOW UP WITH YOUR PRIMARY CARE PROVIDER WITHIN 2 to 3 days FOR HIGH BLOOD PRESSURE NOTED TODAY. - Attestation Statements Document Initiated by Scribe: Yes Documenting Scribe: Christopher Ketih Provider For Whom Scribe is Documenting (Include Credential): Dr. Iban Corrales Scribe Attestation: I, Christopher Keith, scribed for Dr. Iban Corrales on 06/21/18 at 2022. Status of Scribe Document: Ready
[2018-06-21 20:25] VITALS: BP 194/118
== END 2018-06-21 20:15 | disposition home or self-care (01) ==
LOC: ED 15:57
DX: I10 Essential (primary) hypertension (principal); E11.9 Type 2 diabetes mellitus without complications; J45.909 Unspecified asthma, uncomplicated
CPT/HCPCS: 99282; A9270-GY

== ENCOUNTER 2018-07-01 09:40 | Inpatient (IN) | payer BC, MEDICARE ==
[2018-07-01] MEDS ORDERED: Naloxone* 0.4 MG/ML 1 ML VIAL IV PUSH ONE ×2 (09:52→11:02)
--- OUTSIDE RECORDS SUMMARY | 2018-07-01 09:53 | XMS REPORT | Continuity of Care Document ---
:1965 External Reference #:[id number] Author Name Yady Obrien Care Team Providers Name Role Phone Roman Villa MD Primary Care Physician Unavailable Payers Date Identification Numbers Payment Provider Subscriber Effective: Policy Number: [id number] [facility] Katy Jacobo Tenafly 2010 PayID: [id number] [address] [address] [place] [address] Policy Number: [id number] Medicare Katy Jacobo Tenafly PayID: [id number] [address] [place] [address] Advance Directives Description No Information Available Problems Active Problems Provider Date Chronic osteomyelitis of ankle Adrián Louis M.D. Onset: 02/03/2015 and/or foot Mitral valve disorder William Chavez M.D., [facility], Onset: 03/30/2017 FASMN Essential hypertension William Chavez M.D., [facility], Onset: 03/30/2017 FASNC Family History Date Family Member(s) Observation Comments General Father-[place] General mother- due to liver cancer. General paternal irviuheajoe-[id number] General Maternal grandfather-heart disease- due to General - 12/2016-[place] Social History Type Date Description Comments Sex Unknown Marital Status Lives With Patient in december-2016 Lives With Alone Occupation Disabled in 2017 ETOH Use Occasionally consumes alcohol Tobacco Use Start: Unknown Patient has never smoked Recreational Drug Use Denies Drug Use Smoking Status Reviewed: 06/28/18 Patient has never smoked Exercise Type/Frequency Does not exercise Allergies, Adverse Reactions, Alerts Active Allergies Reaction Severity Comments Date NKDA 02/04/2013 Grass 03/30/2017 Medications Active Medications SIG Qnty Indications Ordering Provider Date Vitamin B Complex 1 by mouth every Unknown Tablets day Ferric Citrate 420 MG 1 po tid with Unknown meals Sertraline HCL 1.5 tabs by mouth Unknown 100mg every day Tablets Xifaxan 1 by mouth two Unknown 550mg Tablets times a day Oxycodone HCL 1 tab by mouth Unknown 5mg Capsules every 6 hours as needed pain Metoprolol Tartrate 1 by mouth twice Unknown 50mg a day Tablets Lisinopril 1 by mouth every Unknown 10mg Tablets day Fluticasone Propionate 2 puffs each nare Unknown every in the 50mcg/Act Suspension morning Cinacalcet HCL Take 2 Tablets By Unknown 60mg Tablets Mouth Every Day Aspirin 1 by mouth every Unknown 81mg Tablets DR day [place] 1 tab daily Unknown Tablets Renvela twice daily Unknown 800mg Tablets Omeprazole Take 1 Capsule By Unknown 20mg Capsules DR Mouth Two Times Daily Acetaminophen 2 tabs 3x a day Unknown 325mg Tablets as needed Simvastatin take 1 tablet by Unknown 10mg Tablets mouth at bedtime History Medications Metronidazole 1 tab by mouth 30tabs Ector Spencer 06/03/2018 - 500mg three times per Kathy Mcwilliams 06/05/2018 Tablets day Amoxicillin/Clavulana 1 tab by mouth 42tabs M86.271 Ector Spencer 05/17/2018 - te Potassium daily Kathy Mcwilliams 06/03/2018 500-125mg Tablets Doxycycline Hyclate 1 tab by mouth 60tabs M86.271 Ector Spencer 05/17/2018 - twice a day with Kathy Mcwilliams 06/04/[address] food (on hold as of 06/04/18) [place] 1 tab by mouth q6 20tabs Adrián Louis 04/06/2017 - 5-325mg Tablets hours as needed Kathy 05/24/2017 pain [place] 1 tab by mouth q6 20tabs Boom Hassan 02/27/2017 - 5-325mg Tablets hours as needed MD Tobin 03/29/2017 pain Bactrim DS 1 by mouth twice 40tabs M86.671 Adrián Heriberto, 04/15/2015 - 800-160mg a day M.D. 07/26/2015 Tablets Lactobacillus Extra 1 cap by mouth Unknown - Strength twice a day 06/27/2018 Capsules Doxycycline Hyclate Take 1 Capsule By Unknown - Mouth Every Day 05/17/2018 100mg Capsules Zoloft 1 by mouth every Unknown - 50mg Tablets day 06/21/2018 Sensipar 1 tab daily Unknown - 90mg Tablets 06/17/2018 Senna 2 tabs by mouth Unknown - 8.6mg Tablets 1-2 times daily 06/04/2018 as needed Gabapentin Nicholas Gomez, - 100mg M.D. Unknown Capsules Metoprolol Tartrate 1 tab daily Nicholas Gomez, - M.D. 06/17/2018 25mg Tablets Ranitidine HCL once daily Nicholas Gomez, - 300mg M.D. 06/17/2018 Capsules Oxycodone HCL Nicholas Gomez, - 5mg M.D. Unknown Tablets Amoxicillin/Clavulana 1 by mouth Daily Unknown - te Potassium has 21 days left 04/27/2017 500-125mg as of 03/30/17 Tablets Aspirin 1 by mouth every Unknown - 81mg Tablets day 03/27/2017 Colace 1 tab by mouth Unknown - 100mg Capsules daily 06/04/2018 Sevelamer Carbonate 2 tabs po three Unknown - times per day Unknown 800mg Tablets with meals. Sulfamethoxazole/Trim 1 by mouth twice Unknown - ethoprim DS a day for 10 days 03/29/2017 800-160mg Tablets Cephalexin 1 by mouth twice Unknown - 500mg a day for 10 03/29/2017 Capsules days. Sulfamethoxazole/Trim 1 tab by mouth 2x Unknown - ethoprim DS per day for 7 01/10/2015 800-160mg days Tablets Sulfamethoxazole-Trim 20ml every 12 Unknown - ethoprim hours for 7 days 01/06/2015 200-40mg/5ML Suspension Gabapentin 1 po qhs to start Unknown - 100mg and may increase 08/09/2015 Capsules as tolerated to 2 po qhs then 1 po qam and 2 po hs, gradually up to 3 tid prn pain Amlodipine Besylate 1 po qd 30tabs Unknown - 06/17/2018 10mg Tablets Percocet 1-2 po q4-6h prn 60tabs Unknown - 5-325mg pain 01/10/2015 Tablets Levofloxacin 1 tab by mouth 14tabs Unknown - 750mg every 24 hours 03/18/2013 Tablets Metronidazole 1 po bid 14tabs Unknown - 500mg 03/18/2013 Tablets Lantus 48 units sq daily 6Vials Unknown - 100Unit/ML 03/29/2017 Solution Atorvastatin Calcium 1 po qd Unknown - 03/29/2017 80mg Tablets Allopurinol 2 po qd 30tabs Unknown - 100mg 03/29/2017 Tablets Immunizations Description No Information Available Vital Signs Date Vital Result Comment 06/28/2018 10:54am Height 71 inches 5'11" Weight 264.00 lb Heart Rate 84 /min BP Systolic Sitting 160 mmHg BP Diastolic Sitting 84 mmHg Respiratory Rate 14 /min Body Temperature 98.1 F BMI (Body Mass Index) 36.8 kg/m2 05/31/2018 11:00am Height 71 inches 5'11" Weight 264.31 lb Heart Rate 86 /min BP Systolic Sitting 124 mmHg BP Diastolic Sitting 78 mmHg Respiratory Rate 14 /min Body Temperature 97.9 F BMI (Body Mass Index) 36.9 kg/m2 05/17/2018 10:20am Height 71 inches 5'11" Weight 268.00 lb Heart Rate 92 /min BP Systolic Sitting 190 mmHg BP Diastolic Sitting 88 mmHg Respiratory Rate 16 /min Body Temperature 98.6 F BMI (Body Mass Index) 37.4 kg/m2 12/03/2017 9:48am Heart Rate 84 /min BP Systolic Sitting 148 mmHg BP Diastolic Sitting 92 mmHg Respiratory Rate 18 /min Body Temperature 98.2 F 06/01/2017 11:12am Height 71 inches 5'11" Weight 235.00 lb BP Systolic 140 mmHg BP Diastolic 80 mmHg Respiratory Rate 16 /min Body Temperature 98.3 F BMI (Body Mass Index) 32.8 kg/m2 05/25/2017 9:21am Height 71 inches 5'11" Weight 238.00 lb per pt Heart Rate 68 /min reg Respiratory Rate 16 /min Pain Level 2 left ankle posterior BMI (Body Mass Index) 33.2 kg/m2 03/30/2017 2:07pm Height 71 inches 5'11" per patient Weight 246.00 lb Heart Rate 92 /min regular BP Systolic 126 mmHg Ra Large Cuff BP Diastolic 70 mmHg Ra Large Cuff BP Systolic Sitting 138 mmHg LA Large Cuff BP Diastolic Sitting 64 mmHg LA Large Cuff BP Systolic Standing 108 mmHg LA Large Cuff BP Diastolic Standing 64 mmHg LA Large Cuff Respiratory Rate 12 /min no respiratory difficulties Pain Level 5 O2 % BldC Oximetry 98 % BMI (Body Mass Index) 34.3 kg/m2 03/28/2017 10:58am Height 71 inches 5'11" Weight 221.00 lb Heart Rate 96 /min BP Systolic Sitting 148 mmHg BP Diastolic Sitting 84 mmHg Respiratory Rate 18 /min Pain Level 5 BMI (Body Mass Index) 30.8 kg/m2 03/21/2017 11:50am Height 71 inches 5'11" Weight 220.00 lb Heart Rate 96 /min BP Systolic Sitting 140 mmHg BP Diastolic Sitting 82 mmHg Respiratory Rate 18 /min Pain Level 3 BMI (Body Mass Index) 30.7 kg/m2 03/14/2017 2:52pm Height 71 inches 5'11" Weight 220.00 lb Heart Rate 106 /min BP Systolic Sitting 150 mmHg BP Diastolic Sitting 82 mmHg Respiratory Rate 20 /min Pain Level 6 BMI (Body Mass Index) 30.7 kg/m2 03/02/2017 2:35pm Height 71 inches 5'11" BP Systolic 130 mmHg BP Diastolic 84 mmHg Respiratory Rate 20 /min Body Temperature 98.3 F Pain Level 3 08/10/2015 9:24am Height 71 inches 5'11" Weight 288.00 lb Heart Rate 80 /min BP Systolic Sitting 172 mmHg pt not taken bp med BP Diastolic Sitting 94 mmHg pt not taken bp med Respiratory Rate 14 /min Body Temperature 98.9 F BMI (Body Mass Index) 40.2 kg/m2 07/27/2015 9:24am Height 71 inches 5'11" Weight 291.00 lb BP Systolic Sitting 162 mmHg BP Diastolic Sitting 92 mmHg Respiratory Rate 14 /min Body Temperature 98.6 F BMI (Body Mass Index) 40.6 kg/m2 06/09/2015 1:37pm Height 71 inches 5'11" Weight 291.00 lb BMI (Body Mass Index) 40.6 kg/m2 04/28/2015 2:38pm Height 71 inches 5'11" Weight 291.00 lb BMI (Body Mass Index) 40.6 kg/m2 04/15/2015 11:40am Height 71 inches 5'11" Weight 291.00 lb Body Temperature 98.4 F BMI (Body Mass Index) 40.6 kg/m2 02/12/2015 11:20am Height 71 inches 5'11" Weight 291.00 lb BMI (Body Mass Index) 40.6 kg/m2 01/22/2015 11:52am Height 71 inches 5'11" Weight 291.00 lb BMI (Body Mass Index) 40.6 kg/m2 01/11/2015 2:13pm Height 71 inches 5'11" Weight 291.50 lb Heart Rate 80 /min BP Systolic Sitting 172 mmHg BP Diastolic Sitting 92 mmHg Respiratory Rate 14 /min Body Temperature 99.2 F BMI (Body Mass Index) 40.7 kg/m2 01/08/2015 12:22pm Height 71 inches 5'11" Weight 280.00 lb Pain Level 0 BMI (Body Mass Index) 39.0 kg/m2 12/29/2014 3:16pm Height 71 inches 5'11" Weight 280.00 lb Pain Level 0 BMI (Body Mass Index) 39.0 kg/m2 03/18/2013 9:32am Height 71 inches 5'11" Weight 280.00 lb Heart Rate 64 /min BP Systolic 128 mmHg BP Diastolic 80 mmHg Body Temperature 98.2 F BMI (Body Mass Index) 39.0 kg/m2 02/25/2013 9:51am Height 71 inches 5'11" Weight 282.00 lb Heart Rate 68 /min BP Systolic 128 mmHg BP Diastolic 80 mmHg Body Temperature 97.9 F BMI (Body Mass Index) 39.3 kg/m2 02/04/2013 9:53am Height 71 inches 5'11" Weight 280.00 lb Heart Rate 76 /min BP Systolic 146 mmHg BP Diastolic 92 mmHg Body Temperature 99.5 F BMI (Body Mass Index) 39.0 kg/m2 Results Test Date Facility Test Result H/L Range Note Laboratory test 06/04/2018 [facility] C Difficile SEE RESULT [address] [place] [address] [phone] Inr/Protime 05/10/2018 [facility] Inr 1.37 High 0.77-1.[address] [place] [address] [phone] Laboratory test 05/10/2018 [facility] Partial 33.6 seconds N 26.0-36.[address] [place] [address] PTT [phone] CBC Auto Diff 05/10/2018 [facility] White Blood 7.3 10^3/uL N 3.5-10.[address] [place] [address] [phone] Red Blood Count 2.68 10^6/uL Low 4.00-5.40 Hemoglobin 9.1 g/dL Low 14.0-18.0 Hematocrit 26 % Low 42-52 Mean Corpuscular Volume 98 fL High 80-94 Mean Corpuscular Hemoglobin 34 pg High 27-31 Mean Corpuscular HGB Conc 35 g/dL N 31-36 Red Cell Distribution Width 14 % N 10.5-15 Platelet Count 242 10^3/uL N 150-450 Mean Platelet Volume 8.1 fL N 7.4-10.4 Abs Neutrophils 4.7 10^3/uL N 1.5-7.7 Abs Lymphocytes 1.7 10^3/uL N 1.0-4.8 Abs Monocytes 0.7 10^3/uL N 0-0.8 Abs Eosinophils 0.2 10^3/uL N 0-0.6 Abs Basophils 0.1 10^3/uL N 0-0.2 Abs Nucleated RBC 0 10^3/uL Granulocyte % 64.1 % Lymphocyte % 22.5 % Monocyte % 10.0 % Eosinophil % 2.7 % Basophil % 0.7 % Nucleated Red Blood Cells % 0 Basic Metabolic Panel 05/10/2018 [facility] Sodium 138 mmol/L N 135-[address] [place] [address] [phone] Potassium 2.9 mmol/L Low 3.5-5.0 Chloride 92 mmol/L Low 101-111 Co2 Carbon Dioxide 36 mmol/L High 22-32 Anion Gap 10 mmol/L N 2-11 Glucose 103 mg/dL High 70-100 Blood Urea Nitrogen 15 mg/dL N 6-24 Creatinine 4.01 mg/dL High 0.67-1.17 BUN/Creatinine Ratio 3.7 Low 8-20 Calcium 9.1 mg/dL N 8.6-10.3 Egfr Non- 15.7 >60 Egfr 19.0 >60 2 Laboratory test 03/29/2018 [facility] Tissue Culture SEE RESULT 3, [address] & [place] [address] [phone] Basic Metabolic 01/09/2018 [facility] Sodium 141 mmol/L N 135- [address] [place] [address] [phone] Potassium 3.6 mmol/L N 3.5-5.0 Chloride 94 mmol/L Low 101-111 Co2 Carbon Dioxide 33 mmol/L High 22-32 Anion Gap 14 mmol/L High 2-11 Glucose 104 mg/dL High 70-100 Blood Urea Nitrogen 37 mg/dL High 6-24 Creatinine 7.57 mg/dL High 0.67-1.17 BUN/Creatinine Ratio 4.9 Low 8-20 Calcium 8.4 mg/dL Low 8.6-10.3 Egfr Non- 7.6 >60 Egfr 9.1 >60 5 Laboratory test 01/09/2018 [facility] Erythrocyte Sed 79 mm/Hr High 0-[address] [place] [address] [phone] Urinalysis 03/31/2017 [facility] Urine Color Yellow Profile [address] [place] [address] [phone] Urine Appearance Clear Urine Specific [place] 1.014 N 1.010-1.030 Urine pH 8.0 N 5-9 Urine Urobilinogen Negative Negative Urine Ketones Negative Negative Urine Protein 3+(>=500 mg/dL) Abnormal Negative Urine Leukocytes Negative Negative Urine Blood Negative Negative Urine Nitrite Negative Negative Urine Bilirubin Negative Negative Urine Glucose 1+(50 mg/dL) Abnormal Negative Urine White Blood Cell Trace(0-5/hpf) Absent Urine Red Blood Cell Trace(0-2/hpf) Absent Urine Bacteria Absent Absent Urine Squamous Epithelial Cell Present Abnormal Absent CBC Auto 03/29/2017 [facility] White Blood 12.6 10^3/uL High 3.5-10.[address] [place] [address] [phone] Red Blood Count 2.22 10^6/uL Low 4.0-5.4 Hemoglobin 7.2 g/dL Low 14.0-18.0 Hematocrit 22 % Low 42-52 Mean Corpuscular Volume 98 fL High 80-94 Mean Corpuscular Hemoglobin 32 pg High 27-31 Mean Corpuscular HGB Conc 33 g/dL N 31-36 Red Cell Distribution Width 17 % High 10.5-15 Platelet Count 478 10^3/uL High 150-450 Mean Platelet Volume 8 um3 N 7.4-10.4 Abs Neutrophils 9.9 10^3/uL High 1.5-7.7 Abs Lymphocytes 1.4 10^3/uL N 1.0-4.8 Abs Monocytes 1.0 10^3/uL High 0-0.8 Abs Eosinophils 0.3 10^3/uL N 0-0.6 Abs Basophils 0 10^3/uL N 0-0.2 Abs Nucleated RBC 0 10^3/uL Granulocyte % 78.1 % N 38-83 Lymphocyte % 10.9 % Low 25-47 Monocyte % 8.0 % N 1-9 Eosinophil % 2.6 % N 0-6 Basophil % 0.4 % N 0-2 Nucleated Red Blood Cells % 0.1 Basic Metabolic Panel 03/29/2017 [facility] Sodium 134 mmol/L N 133-[address] [place] [address] [phone] Potassium 4.8 mmol/L N 3.5-5.0 Chloride 93 mmol/L Low 101-111 Co2 Carbon Dioxide 31 mmol/L N 22-32 Anion Gap 10 mmol/L N 2-11 Glucose 93 mg/dL N 70-100 Blood Urea Nitrogen 24 mg/dL N 6-24 Creatinine 3.98 mg/dL High 0.67-1.17 BUN/Creatinine Ratio 6.0 Low 8-20 Calcium 8.7 mg/dL N 8.6-10.3 Egfr Non- 15.9 >60 Egfr 20.4 >60 6 Inr/Protime 03/29/2017 [facility] Inr 1.21 High 0.77-1.[address] [place] [address] [phone] Laboratory test 03/29/2017 [facility] Partial 35.9 N 26.0- 36.[address] [address] PTT [phone] Laboratory test 08/03/2015 [facility] C Reactive < 1.00 mg/L N < 5.00 [address] [place] [address] [phone] Laboratory test 07/06/2015 [facility] C Reactive < 1.00 mg/L N < 5.00 [address] [place] [address] [phone] CBC Auto Diff 07/06/2015 [facility] White Blood 7.4 10^3/uL N 3.5-10.[address] [place] [address] [phone] Red Blood Count 3.30 10^6/uL Low 4.0-5.4 Hemoglobin 10.5 g/dL Low 14.0-18.0 Hematocrit 32 % Low 42-52 Mean Corpuscular Volume 98 fL High 80-94 Mean Corpuscular Hemoglobin 32 pg High 27-31 Mean Corpuscular HGB Conc 33 g/dL N 31-36 Red Cell Distribution Width 13 % N 10.5-15 Platelet Count 228 10^3/uL N 150-450 Mean Platelet Volume 10 um3 N 7.4-10.4 Abs Neutrophils 4.7 10^3/uL N 1.5-7.7 Abs Lymphocytes 2.0 10^3/uL N 1.0-4.8 Abs Monocytes 0.5 10^3/uL N 0-0.8 Abs Eosinophils 0.2 10^3/uL N 0-0.6 Abs Basophils 0 10^3/uL N 0-0.2 Abs Nucleated RBC 0.01 10^3/uL N Granulocyte % 63.9 % N 38-83 Lymphocyte % 26.3 % N 25-47 Monocyte % 6.9 % N 1-9 Eosinophil % 2.3 % N 0-6 Basophil % 0.6 % N 0-2 Nucleated Red Blood Cells % 0.1 N Laboratory test 07/06/2015 [facility] Erythrocyte Sed 81 mm/Hr High 0-[address] [place] [address] [phone] Laboratory test 06/08/2015 [facility] Hemoglobin A1c 7.6 % High Less [address] (Glyco HGB) than 6.0 [place] [address] [phone] Laboratory test 12/24/2014 [facility] Uric Acid 5.8 mg/dL N 4.4-7.[address] [place] [address] [phone] Basic Metabolic 12/24/2014 [facility] Sodium 138 N 133-[address] mmol/[place] [address] [phone] Potassium 5.7 mmol/L High 3.5-5.0 Chloride 111 mmol/L N 101-111 Co2 Carbon Dioxide 18 mmol/L Low 22-32 Anion Gap 9 mmol/L N 2-11 Glucose 157 mg/dL High 70-100 Blood Urea Nitrogen 34 mg/dL High 6-24 Creatinine 3.08 mg/dL High 0.67-1.17 BUN/Creatinine Ratio 11.0 N 8-20 Calcium 8.3 mg/dL Low 8.6-10.3 Egfr Non- 21.6 N >60 Egfr 27.8 N >60 10 Laboratory test 02/25/2013 [facility] C Reactive 0.6 mg/dL High Less than finding [address] Protein 0.5 [place] [address] [phone] Comp Metabolic 02/25/2013 [facility] Sodium 132 mmol/L Low 133 -[address] [place] [address] [phone] Potassium 4.0 mmol/L 3.5-5.0 Chloride 104 mmol/L 101-111 Co2 Carbon Dioxide 23.0 mmol/L 22-32 Anion Gap 5.0 mmol/L 2-11 Glucose 218 mg/dL High 70-100 Blood Urea Nitrogen 25 mg/dL High 6-24 Creatinine 1.40 mg/dL 0.50-1.40 BUN/Creatinine Ratio 17.9 8-20 Calcium 8.3 mg/dL 8.1-9.9 Total Protein 6.1 g/dL Low 6.2-8.1 Albumin 3.2 g/dL Low 3.6-5.4 Globulin 2.9 g/dL 2-4 Albumin/Globulin Ratio 1.1 1-3 Total Bilirubin 0.5 mg/dL 0.4-1.5 Alkaline Phosphatase 61 U/L 30-110 Alt 13 U/L Low 14-54 Ast 14 U/L 12-42 Egfr Non- 53.9 >60 Egfr 69.3 >60 11 Wound 02/19/2013 [facility] Wound/Misc (SEE NOTE) 12 Culture/Sensi [address] [place] [address] Stain [phone] Comp Metabolic 02/11/2013 [facility] Sodium 140 mmol/L 133-[address] [place] [address] [phone] Potassium 4.1 mmol/L 3.5-5.0 Chloride 106 mmol/L 101-111 Co2 Carbon Dioxide 25.0 mmol/L 22-32 Anion Gap 9.0 mmol/L 2-11 Glucose 169 mg/dL High 70-100 Blood Urea Nitrogen 36 mg/dL High 6-24 Creatinine 1.80 mg/dL High 0.50-1.40 BUN/Creatinine Ratio 20.0 8-20 Calcium 9.2 mg/dL 8.1-9.9 Total Protein 7.7 g/dL 6.2-8.1 Albumin 3.4 g/dL Low 3.6-5.4 Globulin 4.3 g/dL High 2-4 Albumin/Globulin Ratio 0.8 Low 1-3 Total Bilirubin 0.6 mg/dL 0.4-1.5 Alkaline Phosphatase 65 U/L 30-110 Alt 18 U/L 14-54 Ast 22 U/L 12-42 Egfr Non- 40.3 >60 Egfr 51.8 >60 13 Laboratory test 02/11/2013 [facility] C Reactive 0.6 mg/dL High Less than finding [address] Protein 0.5 [place] [address] [phone] Basic Metabolic 01/30/2013 [facility] Sodium 134 mmol/L 133- [address] [place] [address] [phone] Potassium 4.8 mmol/L 3.5-5.0 Chloride 102 mmol/L 101-111 Co2 Carbon Dioxide 24.0 mmol/L 22-32 Anion Gap 8.0 mmol/L 2-11 Glucose 261 mg/dL High 70-100 Blood Urea Nitrogen 29 mg/dL High 6-24 Creatinine 2.10 mg/dL High 0.50-1.40 BUN/Creatinine Ratio 13.8 8-20 Calcium 9.0 mg/dL 8.1-9.9 Egfr Non- 33.7 >60 Egfr 43.4 >60 14 CBC Auto Diff 01/30/2013 [facility] White Blood 10.3 10^3/uL 4.8-10.[address] [place] [address] [phone] Red Blood Count 3.46 10^6/uL Low 4.0-5.4 Hemoglobin 10.7 g/dL Low 14.0-18.0 Hematocrit 32 % Low 42-52 Mean Corpuscular Volume 92 fL 80-94 Mean Corpuscular Hemoglobin 31 pg 27-31 Mean Corpuscular HGB Conc 34 g/dL 31-36 Red Cell Distribution Width 15 % 10.5-15 Platelet Count 381 10^3/uL 150-450 Mean Platelet Volume 10 um3 7.4-10.4 Abs Neutrophils 6.6 10^3/uL 1.5-7.7 Abs Lymphocytes 2.5 10^3/uL 1.0-4.8 Abs Monocytes 0.8 10^3/uL 0-0.8 Abs Eosinophils 0.3 10^3/uL 0-0.6 Abs Basophils 0.1 10^3/uL 0-0.2 Abs Nucleated RBC 0.01 10^3/uL Granulocyte % 64.0 % 38-83 Lymphocyte % 24.5 % Low 25-47 Monocyte % 7.5 % 1-9 Eosinophil % 3.2 % 0-6 Basophil % 0.8 % 0-2 Nucleated Red Blood Cells % 0.1 Laboratory test 01/13/2013 [facility] Glucose 399 mg/dL High 70-[address] [place] [address] [phone] 1 SEE RESULT BELOW Name: KATY SINGLETARY : [address]: Ector Mcwilliams MD Acct: [id number] Unit: [id number] AGE: 53 Location: [facility] Re06/03/18 SEX: M Status: REG REF SPEC: [id number] ANGELES: 06/04/18-[address] [facility] [address]: Ector Mcwilliams MD REQ: [id number] RECD: 06/04/18 STATUS: COMP _ SOURCE: STOOL SPDESC: ORDERED: CJoey michele PCR, Stool Culture COMMENTS: [id number] ADDED 06/05/18 TO [id number] SPECIMEN IN CUP YELLOW TOP C S CONTAINER REC'D ?NO STOOL IN CONTAINER Procedure Result Reported Site Stool Culture Final 06/07/18- 0852 ML Result No enteric pathogens isolated Testing for Salmonella, Shigella, Aeromonas, Plesiomonas, Yersinia and Campylobacter are included in a Stool Culture. Vibrio spp not routinely tested for in a stool culture. If testing is desired, please request specifically when placing test order. Sensitivities not routinely performed on stool isolates, as antibiotics may prolong the carriage rate of bacteria. Please contact the microbiology lab if sensitivities are required. Stool Specimen Description Final 06/04/18- 1203 ML Stool Color Light Brown Stool Form Nonformed Stool Consistency Liquid Shiga Toxin 1 2 Final 06/05/18- 1255 ML Test not performed C. difficile PCR Final 06/04/18- 1256 ML Organism 1 027 Presumptive NEGATIVE Organism 2 Toxigenic C.diff NEGATIVE CONTINUED ON NEXT PAGE DEPARTMENT OF PATHOLOGY, [address] [place] [address] Juan Deleon M.D. Director [facility] # [id number] Patient: KATY SINGLETARY [id number] (Continued) Specimen: [id number] Collected: 06/04/18 Received: 06/04/18 (Continued) Procedure Result Reported Site C. difficile PCR Final (continued) 06/04/18- 6 * ML - Main Lab . END OF REPORT DEPARTMENT OF PATHOLOGY, [address] [place] [address] Juan Deleon M.D. Director [facility] # [id number] 2 Because ethnic data is not always readily available, this report includes an eGFR for both -Americans and non- Americans. The National Kidney Disease Education Program (NKDEP) does not endorse the use of the MDRD equation for patients that are not between the ages of 18 and 70, are , have extremes of body size, muscle mass, or nutritional status, or are non- or non-. According to the National Kidney Foundation, irrespective of diagnosis, the stage of the disease is based on the level of kidney function: Stage Description GFR(mL/min/1.73 m(2)) 1 Kidney damage with normal or decreased GFR 90 2 Kidney damage with mild decrease in GFR 60-89 3 Moderate decrease in GFR 30-59 4 Severe decrease in GFR 15-29 5 Kidney failure <15 (or dialysis) 3 RIGHT FOOT 4 SEE RESULT BELOW Name: KATY SINGLETARY Donnell : [address]: Amparo Landis NP Acct: [id number] Unit: [id number] AGE: 53 Location: [facility] Re03/29/18 SEX: M Status: REG REF SPEC: [id number] ANGELES: 03/29/181413 [facility] DR: Amparo Landis NP REQ: [id number] RECD: 03/29/18 STATUS: ROM OZUNA DR: Lety JARVIS _ SOURCE: TISSUE SPDESC:RIGHT ORDERED: Tissue Cult/GS COMMENTS: RIGHT PLANTAR FOOT WOUND Procedure Result Reported Site Tissue Gram Stain Final 03/29/18- 1655 ML 2+ Epithelial Cells 2+ Neutrophils 1+ Gram Positive Cocci 2+ Gram Positive Bacilli 2+ Gram Negative Bacilli Tissue Culture Final 04/02/18- 0942 ML Organism 1 ENTEROBACTER CLOACAE Quantity 2+ Organism 2 KLEBSIELLA OXYTOCA Quantity 2+ Mixed anaerobes; unable to isolate for further identification. 1. ENTEROBACTER CLOACAE M.I.C. RX --------- ------ Cefazolin >=64 R Cefepime <=1 S Ceftriaxone <=1 S Ciprofloxacin <=0.25 S Gentamicin <=1 S Levofloxacin <=0.12 S Meropenem <=0.25 S Tetracycline <=1 S Pipercillin/Tazobactam <=4 S Trimethoprim/Sulfamethoxazole <=20 S CONTINUED ON NEXT PAGE DEPARTMENT OF PATHOLOGY, [address] [place] [address] Juan Deleon M.D. Director [facility] # [id number] Patient: KATY SINGLETARY [id number] (Continued) Specimen: [id number] Collected: 03/29/18 Received: 03/29/18104 (Continued) Procedure Result Reported Site Tissue Culture Final (continued) 04/02/18941 1. ENTEROBACTER CLOACAE (continued) M.I.C. RX --------- ------ Amoxicillin/Clavulanic Acid >=32 R Aztreonam <=1 S 2. KLEBSIELLA OXYTOCA M.I.C. RX --------- ------ Ampicillin >=32 R Cefazolin 8 S Cefepime <=1 S Ceftriaxone <=1 S Ciprofloxacin <=0.25 S Gentamicin <=1 S Levofloxacin <=0.12 S Meropenem <=0.25 S Tetracycline <=1 S Pipercillin/Tazobactam <=4 S Trimethoprim/Sulfamethoxazole <=20 S Amoxicillin/Clavulanic Acid 4 S Aztreonam <=1 S Contact the Microbiology Department for any additional antibiotic reporting. * [facility] - Main Lab . END OF REPORT DEPARTMENT OF PATHOLOGY, [address] [place] [id number] Juan Deleon M.D. Director [facility] # [id number] 5 Because ethnic data is not always readily available, this report includes an eGFR for both -Americans and non- Americans. The National Kidney Disease Education Program (NKDEP) does not endorse the use of the MDRD equation for patients that are not between the ages of 18 and 70, are , have extremes of body size, muscle mass, or nutritional status, or are non- or non-. According to the National Kidney Foundation, irrespective of diagnosis, the stage of the disease is based on the level of kidney function: Stage Description GFR(mL/min/1.73 m(2)) 1 Kidney damage with normal or decreased GFR 90 2 Kidney damage with mild decrease in GFR 60-89 3 Moderate decrease in GFR 30-59 4 Severe decrease in GFR 15-29 5 Kidney failure <15 (or dialysis) 6 Because ethnic data is not always readily available, this report includes an eGFR for both -Americans and non- Americans. The National Kidney Disease Education Program (NKDEP) does not endorse the use of the MDRD equation for patients that are not between the ages of 18 and 70, are , have extremes of body size, muscle mass, or nutritional status, or are non- or non-. According to the National Kidney Foundation, irrespective of diagnosis, the stage of the disease is based on the level of kidney function: Stage Description GFR(mL/min/1.73 m(2)) 1 Kidney damage with normal or decreased GFR 90 2 Kidney damage with mild decrease in GFR 60-89 3 Moderate decrease in GFR 30-59 4 Severe decrease in GFR 15-29 5 Kidney failure <15 (or dialysis) 7 Acute inflammation: >10.00 8 Acute inflammation: >10.00 9 Therapeutic target for the treatment of diabetes Mellitus patients is <7% HBA1C, and in selective patients <6.0%.Please refer to [place] [employer] Diabetic care guidelines for further information. 10 Because ethnic data is not always readily available, this report includes an eGFR for both -Americans and non- Americans. The National Kidney Disease Education Program (NKDEP) does not endorse the use of the MDRD equation for patients that are not between the ages of 18 and 70, are , have extremes of body size, muscle mass, or nutritional status, or are non- or non-. According to the National Kidney Foundation, irrespective of diagnosis, the stage of the disease is based on the level of kidney function: Stage Description GFR(mL/min/1.73 m(2)) 1 Kidney damage with normal or decreased GFR 90 2 Kidney damage with mild decrease in GFR 60-89 3 Moderate decrease in GFR 30-59 4 Severe decrease in GFR 15-29 5 Kidney failure <15 (or dialysis) 11 Because ethnic data is not always readily available, this report includes an eGFR for both -Americans and non- Americans. The National Kidney Disease Education Program (NKDEP) does not endorse the use of the MDRD equation for patients that are not between the ages of 18 and 70, are , have extremes of body size, muscle mass, or nutritional status, or are non- or non-. According to the National Kidney Foundation, irrespective of diagnosis, the stage of the disease is based on the level of kidney function: Stage Description GFR(mL/min/1.73 m(2)) 1 Kidney damage with normal or decreased GFR 90 2 Kidney damage with mild decrease in GFR 60-89 3 Moderate decrease in GFR 30-59 4 Severe decrease in GFR 15-29 5 Kidney failure <15 (or dialysis) 12 RUN DATE: 02/21/13 [facility] LAB LIVE PAGE 1 RUN TIME: [id number] [place], [place] [address] Specimen Inquiry Name: KATY SINGLETARY : [address]: Mono Marcelino Acct: [id number] Unit: [id number] AGE: 48 Location: WOUND Re02/21/13 SEX: M Status: REG RCR SPEC: [id number] ANGELES: 02/19/[address]: Mono Marcelino [facility] REQ: [id number] RECD: 02/19/13 STATUS: ROM OZUNA DR: Ector Glasgow MD _ SOURCE: TOE SPDESC:RIGHT ORDERED: Culture Stain Procedure Result Verified Site Wound/Misc Gram Stain Final 02/19/13- 1422 ML No Polys Observed No Organisms Seen Wound/Misc Culture Final 02/21/13- 1112 ML Organism 1 NORMAL KEVIN Quantity 1+ END OF REPORT * ML=Testing performed at Main Lab DEPARTMENT OF PATHOLOGY, [address] [place] [address] Juan Deleon M.D. Director [facility] Permit #[id number] 13 Because ethnic data is not always readily available, this report includes an eGFR for both -Americans and non- Americans. The National Kidney Disease Education Program (NKDEP) does not endorse the use of the MDRD equation for patients that are not between the ages of 18 and 70, are , have extremes of body size, muscle mass, or nutritional status, or are non- or non-. According to the National Kidney Foundation, irrespective of diagnosis, the stage of the disease is based on the level of kidney function: Stage Description GFR(mL/min/1.73 m(2)) 1 Kidney damage with normal or decreased GFR 90 2 Kidney damage with mild decrease in GFR 60-89 3 Moderate decrease in GFR 30-59 4 Severe decrease in GFR 15-29 5 Kidney failure <15 (or dialysis) 14 Because ethnic data is not always readily available, this report includes an eGFR for both -Americans and non- Americans. The National Kidney Disease Education Program (NKDEP) does not endorse the use of the MDRD equation for patients that are not between the ages of 18 and 70, are , have extremes of body size, muscle mass, or nutritional status, or are non- or non-. According to the National Kidney Foundation, irrespective of diagnosis, the stage of the disease is based on the level of kidney function: Stage Description GFR(mL/min/1.73 m(2)) 1 Kidney damage with normal or decreased GFR 90 2 Kidney damage with mild decrease in GFR 60-89 3 Moderate decrease in GFR 30-59 4 Severe decrease in GFR 15-29 5 Kidney failure <15 (or dialysis) Procedures Date Code Description Status 05/31/2018 64394 Removal Devitalization Tissue Wound Less Than Equal 20 Completed Square CM 05/17/2018 25325 I&D Of Abscess Complicated Completed 05/10/2018 14863 Moderate Sedation Services; Same Phys Each Additional 15 Completed Mins 05/10/2018 21473 Moderate Sedation Services; Same Phys Intl 15 Mins; PT >=5 Completed Years 05/10/2018 17308 Ultrasound Guidance For Vascular Access Completed 05/10/2018 73902 Dialysis Circuit W/ Transluminal Balloon Angioplasty, Completed Peripheral 04/12/2018 37859 Chemical Cautery Granulation Tissue Completed 04/05/2018 53426 Apply Total Contact Leg Cast Completed 03/29/2018 29039 Debridement Skin,& sq Tissue Completed 03/22/2018 48808 Apply Total Contact Leg Cast Completed 03/15/2018 86063 Removal Devitalization Tissue Wound Less Than Equal 20 Completed Square CM 03/01/2018 66459 Apply Total Contact Leg Cast Completed 02/21/2018 67169 Removal Devitalization Tissue Wound Less Than Equal 20 Completed Square CM 02/15/2018 13215 Apply Total Contact Leg Cast Completed 02/08/2018 64778 Apply Total Contact Leg Cast Completed 01/18/2018 44575 Apply Total Contact Leg Cast Completed 01/11/2018 43646 Apply Total Contact Leg Cast Completed 01/04/2018 06246 Debridement Skin,& sq Tissue Completed 12/03/2017 22874 Removal Of Tunneled Central Venous Cath W/O Subcutaneous Completed 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 HELPER 05/10/2017 35932 Amputation Foot Midtarsal Completed 05/10/2017 45147 Amputation Foot Midtarsal Completed 05/10/2017 15868 Transfer Tendon Leg Or Ankle Superficial Completed 05/10/2017 57152 Transfer Tendon Leg Or Ankle Superficial Completed 05/10/2017 58529 Tenotomy Achilles Tendon General Anesthesia Completed 04/23/2017 94645 EKG, Interpretation Only Completed 03/30/2017 84740 EKG Tracing & Interpretation Completed 03/28/2017 18440 Rad Exam; Foot Comp Completed 03/02/2017 24865 Short Leg Cast Completed 02/19/2017 80898 Amputation Foot Transmetatarsal Completed 02/19/2017 52937 Amputation Foot Transmetatarsal Completed 01/31/2017 50293 Treadmill Interp/Report Only Completed 01/31/2017 65987 Stress Test Supervsn W/Out I/R Completed 01/30/2017 20633 ECHO Transthorasic Realtime 2D W Doppler & Color Flow Hosp Completed 01/23/2017 14168 Fluoroscopic Guidance For Cent Completed 01/23/2017 05499 Insertion Tunneled Cent Venous Cathr W/O Subcut Port/Pump Completed 5Yrs> 01/21/2017 04007 EKG, Interpretation Only Completed 01/19/2017 99325 EKG, Interpretation Only Completed 01/19/2017 90334 Insert Non-Tunneled Venous Catether Completed 08/19/2015 60272 Apply Total Contact Leg Cast Completed 08/10/2015 14163 Removal Devitalization Tissue Wound Less Than Equal 20 Completed Square CM 08/03/2015 87728 Removal Devitalization Tissue Wound Less Than Equal 20 Completed Square CM 07/27/2015 00675 Removal Devitalization Tissue Wound Less Than Equal 20 Completed Square CM 07/20/2015 65257 Removal Devitalization Tissue Wound Less Than Equal 20 Completed Square CM 07/13/2015 49366 Removal Devitalization Tissue Wound Less Than Equal 20 Completed Square CM 07/06/2015 12152 Removal Devitalization Tissue Wound Less Than Equal 20 Completed Square CM 06/29/2015 59482 Removal Devitalization Tissue Wound Less Than Equal 20 Completed Square CM 06/22/2015 77556 Removal Devitalization Tissue Wound Less Than Equal 20 Completed Square CM 06/15/2015 38978 Removal Devitalization Tissue Wound Less Than Equal 20 Completed Square CM 06/08/2015 37598 Removal Devitalization Tissue Wound Less Than Equal 20 Completed Square CM 06/01/2015 34254 Removal Devitalization Tissue Wound Less Than Equal 20 Completed Square CM 05/25/2015 85679 Removal Devitalization Tissue Wound Less Than Equal 20 Completed Square CM 05/18/2015 23058 Removal Devitalization Tissue Wound Less Than Equal 20 Completed Square CM 05/11/2015 45096 Removal Devitalization Tissue Wound Less Than Equal 20 Completed Square CM 05/04/2015 54360 Removal Devitalization Tissue Wound Less Than Equal 20 Completed Square CM 12/29/2014 98721 Short Leg Cast Completed 12/17/2014 48192 Amputation Foot Transmetatarsal Completed 12/17/2014 18117 Amputation Foot Transmetatarsal Completed 01/14/2013 80779 EKG, Interpretation Only Completed Encounters Type Date Location Provider Dx Diagnosis Office Visit 06/17/2018 [facility] Ector Spencer B17.9 Acute viral 10:41a Infectious Kathy Mcwilliams hepatitis, Diseases unspecified E11.69 Type 2 diabetes mellitus with other specified complication M86.9 Osteomyelitis, unspecified E11.22 Type 2 diabetes mellitus w diabetic chronic kidney disease N18.6 End stage renal disease Office Visit 06/17/2018 8:45a [facility] Darrick Esposito R94.5 Abnormal Assoc,manuel Paul MD results of Hospitalists liver function studies G93.40 Encephalopathy, unspecified M86.679 Other chronic osteomyelitis, unspecified ankle and foot N18.6 End stage renal disease Z99.2 Dependence on renal dialysis Office Visit 06/16/2018 8:44a [facility] Darrick Esposito K72.00 Acute and Assoc,manuel Paul MD subacute Hospitalists hepatic failure without coma G93.41 Metabolic encephalopathy R94.5 Abnormal results of liver function studies M86.671 Other chronic osteomyelitis, right ankle and foot D69.6 Thrombocytopenia, unspecified N18.6 End stage renal disease R19.7 Diarrhea, unspecified Z99.2 Dependence on renal dialysis Office Visit 06/15/2018 8:44a [facility] Darrick Esposito K72.00 Acute and Assoc,manuel Paul MD subacute Hospitalists hepatic failure without coma G93.41 Metabolic encephalopathy E87.8 Oth disorders of electrolyte and fluid balance, [facility] M86.671 Other chronic osteomyelitis, right ankle and foot D69.6 Thrombocytopenia, unspecified N18.6 End stage renal disease R19.7 Diarrhea, unspecified R94.5 Abnormal results of liver function studies Office Visit 06/14/2018 9:48a [facility] El Spencer B17.9 Acute viral Infectious Kathy Mcwilliams hepatitis, Diseases unspecified E11.22 Type 2 diabetes mellitus w diabetic chronic kidney disease N18.6 End stage renal disease E11.69 Type 2 diabetes mellitus with other specified complication M86.9 Osteomyelitis, unspecified Office Visit 06/14/2018 [facility] Philly M86.671 Other chronic 8:44a Assoc,manuel Miller M.D. osteomyelitis, Hospitalists right ankle and foot D69.6 Thrombocytopenia, unspecified K72.00 Acute and subacute hepatic failure without coma G93.41 Metabolic encephalopathy R19.7 Diarrhea, unspecified N18.6 End stage renal disease Z99.2 Dependence on renal dialysis Office Visit 06/13/2018 9:47a [facility] El Spencer B17.9 Acute viral Infectious Kathy Mcwilliams hepatitis, Diseases unspecified E11.22 Type 2 diabetes mellitus w diabetic chronic kidney disease N18.6 End stage renal disease Office Visit 06/13/2018 [facility]86.271 Subacute 8:43a manuel Sosa M.D. osteomyelitis, Hospitalists right ankle and foot E11.621 Type 2 diabetes mellitus with foot ulcer L97.519 Non-prs chronic ulcer oth prt right foot w unsp severity K72.00 Acute and subacute hepatic failure without coma G93.41 Metabolic encephalopathy N18.6 End stage renal disease Z99.2 Dependence on renal dialysis R19.7 Diarrhea, unspecified Office Visit 06/12/2018 [facility]86.271 Subacute 8:43a manuel Sosa M.D. osteomyelitis, Hospitalists right ankle and foot G93.41 Metabolic encephalopathy R19.7 Diarrhea, unspecified N18.6 End stage renal disease Z99.2 Dependence on renal dialysis Office Visit 06/11/2018 8:42a [facility] Angela, K72.00 Acute and Assmanuel alvarez M.D. subacute Hospitalists hepatic failure without coma G93.41 Metabolic encephalopathy R19.7 Diarrhea, unspecified R79.89 Other specified abnormal findings of blood chemistry N18.6 End stage renal disease Office Visit 06/10/2018 8:42a [facility] Angela, I12.0 Hyp chr kidney Assmanuel alvarez M.D. disease w Hospitalists stage 5 chr kidney disease or Esrd N18.6 End stage renal disease Z99.2 Dependence on renal dialysis R74.8 Abnormal levels of other serum enzymes R11.10 Vomiting, unspecified R19.7 Diarrhea, unspecified R79.89 Other specified abnormal findings of blood chemistry R41.82 Altered mental status, unspecified Office Visit 06/10/2018 9:42a [facility] El Spencer B17.9 Acute viral Infectious Kathy Mcwilliams hepatitis, Diseases unspecified R19.7 Diarrhea, unspecified E11.40 Type 2 diabetes mellitus with diabetic neuropathy, unsp E11.22 Type 2 diabetes mellitus w diabetic chronic kidney disease N18.6 End stage renal disease R79.1 Abnormal coagulation profile Office Visit 06/09/2018 8:41a [facility] K72.00 Acute and Assoc,manuel Mcghee M.D. subacute Hospitalists hepatic failure without coma I12.0 Hyp chr kidney disease w stage 5 chr kidney disease or Esrd Z99.2 Dependence on renal dialysis R50.9 Fever, unspecified R79.89 Other specified abnormal findings of blood chemistry R41.82 Altered mental status, unspecified R19.7 Diarrhea, unspecified Office Visit 06/08/2018 8:41a [facility] K72.00 Acute and Assoc,manuel Mcghee M.D. subacute Hospitalists hepatic failure without coma R50.9 Fever, unspecified I12.0 Hyp chr kidney disease w stage 5 chr kidney disease or Esrd N18.6 End stage renal disease Z99.2 Dependence on renal dialysis R79.89 Other specified abnormal findings of blood chemistry R41.82 Altered mental status, unspecified R19.7 Diarrhea, unspecified Office Visit 06/07/2018 8:40a [facility] K72.00 Acute and Assoc,manuel Mcghee M.D. subacute Hospitalists hepatic failure without coma R50.9 Fever, unspecified I12.0 Hyp chr kidney disease w stage 5 chr kidney disease or Esrd Z99.2 Dependence on renal dialysis N18.6 End stage renal disease R41.82 Altered mental status, unspecified Office Visit 06/07/2018 10:45a [facility] Giovany Casas89.893 [facility] [place] [facility] [place] of other site, stage 3 E11.621 Type 2 diabetes mellitus with foot ulcer M86.271 Subacute osteomyelitis, right ankle and foot I73.9 Peripheral vascular disease, unspecified N18.6 End stage renal disease R09.89 Oth symptoms and signs involving the circ and resp systems M21.6x1 Other acquired deformities of right foot Office Visit 05/31/2018 [facility] Ector Spencer M86.271 Subacute 10:50a For Infectious Kathy Mcwilliams osteomyelitis, Diseases right ankle and foot E11.40 Type 2 diabetes mellitus with diabetic neuropathy, unsp R19.7 Diarrhea, unspecified T36.0x5A Adverse effect of penicillins, initial encounter Office Visit 05/24/2018 10:45a [facility] Giovany Casas89.893 Pressure ulcer [facility] [place] FACS of other site, stage 3 E11.621 Type 2 diabetes mellitus with foot ulcer M86.271 Subacute osteomyelitis, right ankle and foot I73.9 Peripheral vascular disease, unspecified N18.6 End stage renal disease R09.89 Oth symptoms and signs involving the circ and resp systems M21.6x1 Other acquired deformities of right foot Office Visit 05/17/2018 [facility] Ector D. M86.271 Subacute 10:50a For Infectious Kathy Mcwilliams osteomyelitis, Diseases right ankle and foot E11.621 Type 2 diabetes mellitus with foot ulcer N18.6 End stage renal disease I73.9 Peripheral vascular disease, unspecified E11.69 Type 2 diabetes mellitus with other specified complication L97.519 Non-prs chronic ulcer oth prt right foot w unsp severity Office Visit 05/03/2018 11:30a Wound Care Fitz Leon L89.893 Pressure ulcer [facility] [place] FACS of other site, stage 3 E11.621 Type 2 diabetes mellitus with foot ulcer M86.271 Subacute osteomyelitis, right ankle and foot I73.9 Peripheral vascular disease, unspecified N18.6 End stage renal disease R09.89 Oth symptoms and signs involving the circ and resp systems M21.6x1 Other acquired deformities of right foot Office Visit 04/26/2018 11:00a Wound Care Fitz Leon L89.893 Pressure ulcer [facility] [place] FACS of other site, stage 3 E11.621 Type 2 diabetes mellitus with foot ulcer I73.9 Peripheral vascular disease, unspecified N18.6 End stage renal disease R09.89 Oth symptoms and signs involving the circ and resp systems M21.6x1 Other acquired deformities of right foot Office Visit 01/04/2018 [facility] Fitz Bermudez E11.621 Type 2 diabetes 8:00a [place] [facility] [place] Carolyn, mellitus with FACS foot ulcer Office Visit 05/18/2017 [facility] J96.01 Acute respiratory 8:39a manuel Sosa M.D. failure with Hospitalists hypoxia S91.302A Unspecified open wound, left foot, initial encounter E11.8 Type 2 diabetes mellitus with unspecified complications I10 Essential (primary) hypertension Office Visit 05/17/2017 8:37a [facility] Ardián J96.01 Acute respiratory Assocmanuel M.D. failure with Hospitalists hypoxia S91.302A Unspecified open wound, left foot, initial encounter E11.8 Type 2 diabetes mellitus with unspecified complications I10 Essential (primary) hypertension Office Visit 05/16/2017 8:34a [facility] Adrián J96.01 Acute respiratory Assoc,manuel Rawls M.D. failure with Hospitalists hypoxia S91.302A Unspecified open wound, left foot, initial encounter E11.8 Type 2 diabetes mellitus with unspecified complications I10 Essential (primary) hypertension Office Visit 05/15/2017 8:33a [facility] Adrián J96.01 Acute respiratory Assoc,manuel Rawls M.D. failure with Hospitalists hypoxia S91.302A Unspecified open wound, left foot, initial encounter E11.8 Type 2 diabetes mellitus with unspecified complications I10 Essential (primary) hypertension Office Visit 05/14/2017 [facility] Philly Miller J96.01 Acute respiratory 8:32a manuel Sosa M.D. failure with Hospitalists hypoxia S91.302A Unspecified open wound, left foot, initial encounter E11.8 Type 2 diabetes mellitus with unspecified complications I10 Essential (primary) hypertension Office Visit 05/13/2017 [facility] Philly Miller J96.01 Acute respiratory 8:24a manuel Sosa M.D. failure with Hospitalists hypoxia S91.302A Unspecified open wound, left foot, initial encounter E11.8 Type 2 diabetes mellitus with unspecified complications I10 Essential (primary) hypertension Office Visit 05/12/2017 [facility] Philly Miller J96.01 Acute respiratory 8:21a manuel Sosa M.D. failure with Hospitalists hypoxia S91.302A Unspecified open wound, left foot, initial encounter E11.8 Type 2 diabetes mellitus with unspecified complications I10 Essential (primary) hypertension Office Visit 05/11/2017 [facility] Philly Miller J96.01 Acute respiratory 8:20a manuel Sosa M.D. failure with Hospitalists hypoxia S91.302A Unspecified open wound, left foot, initial encounter E11.8 Type 2 diabetes mellitus with unspecified complications I10 Essential (primary) hypertension Office Visit 05/10/2017 10:03a [facility] No[facility] G. I73.9 Peripheral Medicine Of Real Coelho M.D. vascular disease, unspecified E11.8 Type 2 diabetes mellitus with unspecified complications Office Visit 05/10/2017 [facility] Philly Miller, J96.01 Acute respiratory 8:19a manuel Sosa M.D. failure with Hospitalists hypoxia S91.302A Unspecified open wound, left foot, initial encounter E11.8 Type 2 diabetes mellitus with unspecified complications I10 Essential (primary) hypertension Office Visit 05/09/2017 8:18a [facility] Chema Dukes J96.01 Acute respiratory Assmanuel alvarez MD failure with Hospitalists hypoxia S91.302A Unspecified open wound, left foot, initial encounter E11.8 Type 2 diabetes mellitus with unspecified complications I10 Essential (primary) hypertension Office Visit 05/09/2017 [facility] M86.672 Other chronic 11:40a Services Of Isabel Doss, VANDANA osteomyelitis, left ankle and foot Office Visit 05/08/2017 [facility] Chema Dukes J96.01 Acute respiratory 8:08a manuel Sosa MD failure with Hospitalists hypoxia S91.302A Unspecified open wound, left foot, initial encounter E11.8 Type 2 diabetes mellitus with unspecified complications I10 Essential (primary) hypertension Office Visit 05/07/2017 7:56a [facility] Chema Dukes J96.01 Acute respiratory Assmanuel alvarez MD failure with Hospitalists hypoxia S91.302A Unspecified open wound, left foot, initial encounter E11.8 Type 2 diabetes mellitus with unspecified complications I10 Essential (primary) hypertension Office Visit 04/25/2017 [facility] Philly Miller J96.01 Acute respiratory 10:09a manuel Sosa M.D. failure with Hospitalists hypoxia S91.302A Unspecified open wound, left foot, initial encounter E11.8 Type 2 diabetes mellitus with unspecified complications I10 Essential (primary) hypertension Office Visit 04/24/2017 [facility] Philly Miller J96.01 Acute respiratory 10:08a manuel Sosa M.D. failure with Hospitalists hypoxia S91.302A Unspecified open wound, left foot, initial encounter E11.8 Type 2 diabetes mellitus with unspecified complications I10 Essential (primary) hypertension Office Visit 04/23/2017 [facility] Josy Mosquera J96.01 Acute 10:06a Assoc,manuel Redding, [employer] respiratory Hospitalists failure with hypoxia S91.302A Unspecified open wound, left foot, initial encounter E11.8 Type 2 diabetes mellitus with unspecified complications I10 Essential (primary) hypertension Office Visit 03/30/2017 2:30p Cardiology William Hidalgo I34.0 Nonrheumatic mitral Services Of Real Chavez M.D., (valve) AT [facility], FASNC insufficiency I10 Essential (primary) hypertension Z01.810 Encounter for preprocedural cardiovascular examination M86.672 Other chronic osteomyelitis, left ankle and foot Office Visit 02/21/2017 7:22a [facility] [place] S. E11.621 Type 2 Assoc,manuel Pierre, N.P. 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 E11.621 Type 2 Assmanuel alvarez, N.P. diabetes Hospitalists mellitus with foot ulcer E11.8 Type 2 diabetes mellitus with unspecified complications N18.6 End stage renal disease I10 Essential (primary) hypertension Office Visit 02/19/2017 7:21a [facility] [place] S. N18.6 End stage Assocmanuel, N.P. renal disease Hospitalists E11.621 Type 2 diabetes mellitus with foot ulcer E11.8 Type 2 diabetes mellitus with unspecified complications I10 Essential (primary) hypertension Office Visit 02/18/2017 9:37a Orthopedic Adrián Louis, I96 Gangrene, not Services Of sIabel Chavez elsewhere classified Office Visit 02/18/2017 7:20a [facility] Philly Miller, N18.6 End stage renal Assmanuel alvarez M.D. disease Hospitalists E11.621 Type 2 diabetes mellitus with foot ulcer E11.8 Type 2 diabetes mellitus with unspecified complications I10 Essential (primary) hypertension Office Visit 02/17/2017 7:19a [facility] Julius Avila, N18.6 End stage Assoc,pc N.P. renal disease Hospitalists E11.621 Type 2 diabetes mellitus with foot ulcer E11.8 Type 2 diabetes mellitus with unspecified complications I10 Essential (primary) hypertension Office Visit 01/30/2017 7:34a [facility] Taryn R07.9 Chest pain, Assoc,manuel Monaco M.D. unspecified Hospitalists I50.9 Heart failure, unspecified N18.6 End stage renal disease Z99.2 Dependence on renal dialysis Office Visit 2017 8:03a [facility] Adrián N17.9 Acute kidney Assoc,manuel Rawls M.D. failure, Hospitalists unspecified E87.5 Hyperkalemia N18.5 Chronic kidney disease, stage 5 E83.39 Other disorders of phosphorus metabolism Office Visit 01/23/2017 8:02a [facility] Adrián N17.9 Acute kidney Assoc,manuel Rawls M.D. failure, Hospitalists unspecified E87.5 Hyperkalemia E83.39 Other disorders of phosphorus metabolism N18.5 Chronic kidney disease, stage 5 Office Visit 01/22/2017 8:00a [facility] Adrián N17.9 Acute kidney Assoc,manuel Rawls M.D. failure, Hospitalists unspecified E87.5 Hyperkalemia E83.39 Other disorders of phosphorus metabolism N18.5 Chronic kidney disease, stage 5 Office Visit 01/21/2017 7:51a [facility] Adrián N17.9 Acute kidney Assoc,manuel Rawls M.D. failure, Hospitalists unspecified E87.5 Hyperkalemia E83.39 Other disorders of phosphorus metabolism N18.5 Chronic kidney disease, stage 5 Office Visit 01/20/2017 7:50a [facility] Adrián N17.9 Acute kidney Assoc,manuel Rawls M.D. failure, Hospitalists unspecified N18.5 Chronic kidney disease, stage 5 E87.5 Hyperkalemia E83.39 Other disorders of phosphorus metabolism Office Visit 01/19/2017 [facility] Nitin Licea N17.9 Acute kidney 7:47a manuel Sosa II, M.D. failure, Hospitalists unspecified E87.5 Hyperkalemia N18.5 Chronic kidney disease, stage 5 E83.39 Other disorders of phosphorus metabolism Office Visit 08/26/2015 11:34a [facility] Simba Chapa M10.079 Idiopathic gout , [facility] [place] Phillip unspecified ankle and foot E11.621 Type 2 diabetes mellitus with foot ulcer M86.671 Other chronic osteomyelitis, right ankle and foot L97.411 Non-prs chr ulcer of right heel and midft [facility] Office Visit 08/17/2015 2:24p Wound Care Simba Chapa M10.079 Idiopathic gout , [facility] Kathy Phillip unspecified ankle and foot E11.621 Type 2 diabetes mellitus with foot ulcer M86.671 Other chronic osteomyelitis, right ankle and foot Office Visit 08/10/2015 10:50a [facility] El Spencer Z89.421 Acquired Infectious Kathy Mcwilliams absence of Diseases other right toe(s) L97.519 Non-prs chronic ulcer oth prt right foot w unsp severity Office Visit 07/27/2015 9:30a [facility] El Spencer Z89.421 Acquired Infectious Kathy Mcwilliams absence of Diseases other right toe(s) E11.621 Type 2 diabetes mellitus with foot ulcer L97.519 Non-prs chronic ulcer oth prt right foot w unsp severity Office Visit 06/10/2015 10:29a Wound Care Simba Chapa E11.321 Type 2 diab w [facility] Kathy 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 ankle and foot Office Visit 04/28/2015 Orthopedic Adrián Bai Other chronic 2:50p Services Of Kathy Louis osteomyelitis, right C.M.A. ankle and foot Office Visit 04/15/2015 Orthopedic Adrián Bai Other chronic 11:15a Services Of Kathy Louis osteomyelitis, right C.M.A. 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 failure, Hospitalists unspecified M86.9 Osteomyelitis, unspecified A41.9 Sepsis, unspecified organism E13.9 Other specified diabetes mellitus without complications [facility]omyelitis, 12:12p manuel Sosa M.D. unspecified Hospitalists A41.9 Sepsis, unspecified organism N17.9 Acute kidney failure, unspecified E13.9 Other specified diabetes mellitus without complications [facility] Visit [facility]9 Osteomyelitis, 12:12p manuel Sosa M.D. unspecified Hospitalists A41.9 Sepsis, unspecified organism N17.9 Acute kidney failure, unspecified E13.9 Other specified diabetes mellitus without complications Office Visit 12/18/2014 [facility] Philly Miller, N17.9 Acute kidney 12:11p manuel Sosa M.D. failure, Hospitalists unspecified M76.9 Unspecified enthesopathy, lower limb, excluding foot A41.9 Sepsis, unspecified organism E13.9 Other specified diabetes mellitus without complications Office Visit 12/17/2014 7:52a [facility] Ector Spencer E11.52 Type 2 diabetes Gregorio Mcwilliams M.D. w diabetic Diseases peripheral angiopathy w gangrene L03.115 Cellulitis of right lower limb E11.69 Type 2 diabetes mellitus with other specified complication M86.671 Other chronic osteomyelitis, right ankle and foot R09.89 Oth symptoms and signs involving the circ and resp systems E11.22 Type 2 diabetes mellitus w diabetic chronic kidney disease E11.40 Type 2 diabetes mellitus with diabetic neuropathy, unsp N18.3 Chronic kidney disease, stage 3 (moderate) Office Visit 12/17/2014 [facility] Philly M86.9 Osteomyelitis, 12:10p Assoc,manuel Miller M.D. unspecified Hospitalists A41.9 Sepsis, unspecified organism N17.9 Acute kidney failure, unspecified E13.9 Other specified diabetes mellitus without complications Office Visit 12/16/2014 Orthopedic Dara M86.9 Osteomyelitis, 7:00a Services Of Isabel Vergara M.D. unspecified Office Visit 12/16/2014 [facility] [place] LairdJoey M86.9 Osteomyelitis, 12:08p Assoc,manuel Pierre N.P. unspecified Hospitalists A41.9 Sepsis, unspecified organism N17.9 Acute kidney failure, unspecified E13.9 Other specified diabetes mellitus without complications Office Visit 03/18/2013 [facility] Ector Spencer 681.10 Cellulitis & 9:30a For Infectious Kathy Mcwilliams Abscess Toe Unspec Diseases Office Visit 02/25/2013 [facility] Ector Spencer 730.00 Osteomyelitis Acute 9:30a For Infectious Kathy Mcwilliams Site Unspec Diseases 681.10 Cellulitis & Abscess Toe Unspec Office Visit 02/04/2013 [facility] Ector Spencer 730.00 Osteomyelitis Acute 9:30a For Infectious Kathy Mcwilliams Site Unspec Diseases 588.9 Renal Function Impairment Disorders Unspec Office Visit 2013 11:06a [facility] Taryn 681.10 Cellulitis & Assoc,manuel Monaco M.D. Abscess Toe Hospitalists Unspec 730.00 Osteomyelitis Acute Site Unspec 250.02 Diabetes Mellitus W/O Compl Type II Or Unspec Type Uncontrol 584.5 Acute Kidney Failure With Lesion Of Tubular Necrosis Office Visit 01/23/2013 11:06a [facility] Taryn 681.10 Cellulitis & Assoc,manuel Monaco M.D. Abscess Toe Hospitalists Unspec 250.02 Diabetes Mellitus W/O Compl Type II Or Unspec Type Uncontrol 584.5 Acute Kidney Failure With Lesion Of Tubular Necrosis Office Visit 01/22/2013 11:06a [facility] Taryn 681.10 Cellulitis & Assoc,manuel Monaco M.D. Abscess Toe Hospitalists Unspec 250.02 Diabetes Mellitus W/O Compl Type II Or Unspec Type Uncontrol 584.5 Acute Kidney Failure With Lesion Of Tubular Necrosis Office Visit 01/21/2013 11:05a [facility] Taryn 681.10 Cellulitis & Assoc,manuel Monaco M.D. Abscess Toe Hospitalists Unspec 250.02 Diabetes Mellitus W/O Compl Type II Or Unspec Type Uncontrol Office Visit 01/21/2013 [facility] El Spencer 730.27 Osteomyelitis 9:16a Gregorio Mcwilliams M.D. Unspec Ankle & Diseases Foot [facility] Cellulitis & 11:05a Assoc,manuel Miller M.D. Abscess Toe Unspec Hospitalists 250.02 Diabetes Mellitus W/O Compl Type II Or Unspec Type Uncontrol 584.5 Acute Kidney Failure With Lesion Of Tubular Necrosis Office Visit 01/19/2013 [facility] Philly Miller, 681.10 Cellulitis & 11:05a manuel Sosa M.D. Abscess Toe Hospitalists Unspec 250.02 Diabetes Mellitus W/O Compl Type II Or Unspec Type Uncontrol 584.5 Acute Kidney Failure With Lesion Of Tubular Necrosis Office Visit 01/18/2013 [facility] Philly Miller, 681.10 Cellulitis & 11:04a manuel Sosa M.D. Abscess Toe Hospitalists Unspec 250.02 Diabetes Mellitus W/O Compl Type II Or Unspec Type Uncontrol 584.5 Acute Kidney Failure With Lesion Of Tubular Necrosis Office Visit 01/17/2013 11:04a [facility] [place] Tsang 681.10 Cellulitis & Assoc,pc Ignacio N.PJoey Abscess Toe Hospitalists Unspec 250.02 Diabetes Mellitus W/O Compl Type II Or Unspec Type Uncontrol 584.5 Acute Kidney Failure With Lesion Of Tubular Necrosis Office Visit 01/16/2013 11:04a [facility] Philly Miller, 584.5 Acute Kidney Assocmanuel M.D. Failure With Hospitalists Lesion Of Tubular Necrosis 681.10 Cellulitis & Abscess Toe Unspec 250.02 Diabetes Mellitus W/O Compl Type II Or Unspec Type Uncontrol Office Visit 01/16/2013 [place] Lynn Spencer 730.27 Osteomyelitis 2:16p Gregorio Mcwilliams M.D. Unspec Ankle & Diseases Foot Office Visit 01/15/2013 [place] Lynn Spencer 730.27 Osteomyelitis 12:10p Gregorio Mcwilliams M.D. Unspec Ankle & Diseases Foot Office Visit 01/15/2013 [facility] 584.5 Acute Kidney 11:03a manuel Sosa M.D. Failure With Hospitalists Lesion Of Tubular Necrosis 681.10 Cellulitis & Abscess Toe Unspec 250.02 Diabetes Mellitus W/O Compl Type II Or Unspec Type Uncontrol 995.92 Severe Sepsis Office Visit 01/14/2013 11:03a [facility] Angela, 995.92 Severe Sepsis manuel Sosa M.D. Hospitalists 681.10 Cellulitis & Abscess Toe Unspec 250.02 Diabetes Mellitus W/O Compl Type II Or Unspec Type Uncontrol 584.5 Acute Kidney Failure With Lesion Of Tubular Necrosis Office Visit 01/13/2013 11:02a [facility] Angela, 995.92 Severe Sepsis manuel Sosa M.D. Hospitalists 681.10 Cellulitis & Abscess Toe Unspec 250.02 Diabetes Mellitus W/O Compl Type II Or Unspec Type Uncontrol 584.5 Acute Kidney Failure With Lesion Of Tubular Necrosis Office Visit 06/06/2009 12:15a [facility] 250.00 Diabetes manuel Sosa M.D. Mellitus W/O Hospitalists Compl Type II Or Unspec Controlled 730.20 Osteomyelitis Unspec Site Unspec 401.9 Hypertension Unspec Office Visit 06/05/2009 12:15a [facility] 250.00 Diabetes manuel Sosa M.D. Mellitus W/O Hospitalists Compl Type II Or Unspec Controlled Office Visit 06/04/2009 12:15a [facility] 250.00 Diabetes manuel Sosa M.D. Mellitus W/O Hospitalists Compl Type II Or Unspec Controlled 593.9 Kidney & Ureter Disorders Unspec [facility] Osteomyelitis 12:15a manuel Sosa M.D. Unspec Site Unspec Hospitalists 250.00 Diabetes Mellitus W/O Compl Type II Or Unspec Controlled [facility]30.20 Osteomyelitis 12:15a manuel Sosa M.D. Unspec Site Unspec Hospitalists [facility] Osteomyelitis 4:00a manuel Sosa M.D. Unspec Site Unspec Hospitalists Plan of Treatment Future Appointment(s):07/24/2018 1:00 pm - Josy Redding NP at [facility] For [facility]ious Tbdzpvpr23/08/2019 11:30 am - William Chavez M.D., [facility] at [facility]07/09/2018 10:00 am - Traveling ECHO 1 at [facility]07/08/2018 2:15 pm - Garry Javed MD at [facility] [id number]/19/2019 - Josy Redding, NPM86.9 Osteomyelitis , unspecifiedFollow up:1 gawpyL43.5 Abnormal results of liver function studies
--- OUTSIDE RECORDS SUMMARY | 2018-07-01 09:53 | XMS REPORT | Continuity of Care Document ---
:1965 External Reference #:[id number] Author Name Ta Baxter D.O. Address [address] [place] [id number] Care Team Providers Name Role Phone HCP given Primary Care Physician Unavailable Payers Date Identification Numbers Payment Provider Subscriber Effective: Policy Number: Zia Singletary 2017 [id number] Ind/Ppo/Hmo/Pos PayID: [id number] [address] [address] [place] [address] Effective: 1999 Policy Number: [facility] Katy Singletary [id number] PayID: [id number] [address] [place] [address] Advance Directives Description No Information Available Problems Active Problems Provider Date Type 2 diabetes mellitus Lety Santamaria PA Onset: 02/13/2017 Chronic kidney disease stage 4 Lety Santamaria PA Onset: 02/13/2017 Essential hypertension Lety Santamaria PA Onset: 02/13/2017 Anemia of chronic renal failure Lety Santamaria PA Onset: 02/13/2017 Cardiomegaly Lety Santamaria PA Onset: 02/13/2017 Gout Lety Santamaria PA Onset: 03/03/2017 Hyperlipidemia Lety Santamaria PA Onset: 03/03/2017 Gastric ulcer Lety Santamaria PA Onset: 05/07/2017 End stage renal failure on dialysis Lety Santamaria PA Onset: 12/23/2017 Mitral valve regurgitation Lety Santamaria PA Onset: 12/23/2017 Peripheral arterial occlusive disease Lety Santamaria PA Onset: 12/23/2017 Left ventricular hypertrophy Lety Santamaria PA Onset: 12/23/2017 Coronary atherosclerosis Lety Santamaria PA Onset: 12/23/2017 Diabetic foot ulcer Lety Santamaria PA Onset: 12/23/2017 Family History Date Family Member(s) Observation Comments Father ID Mother due to Liver Cancer () Paternal Grandmother Diabetes, Nos Maternal Grandfather Heart Disease Maternal Grandfather due to Heart Disease () Maternal Uncles due to CAD () Social History Type Date Description Comments Sex Unknown Education High School Completed Marital Status 12/2016 Lives With Alone Has daughter, but she is working on her Masters' degree, down in [place], [place]. Occupation [employer] Work Status Not Currently Working disability 2017 Years Employed over 30 years 20 years spent working at [employer] 06/06/2018 Right-handed Tobacco Use Start: Unknown Denies Cigarette Use ETOH Use Occassional Alcohol Hx binge drinking Recreational Drug Use Denies Drug Use Tobacco Use Start: Unknown Non Smoker Smoking Status Reviewed: 06/27/18 Non Smoker Exercise Type/Frequency Exercises sporadically walking Sun Exposure Does not use sunscreen Seat Belt/Car Seat Seat Belt Use - Yes Guns in Home Yes, Locked Up Smoke Alarms Yes smoke alarm Currently Active Patient is currently not sexually active Additional Info Sexual preference is women Additional Info Sexual Partners 1-5 Allergies, Adverse Reactions, Alerts Description No Known Drug Allergies Medications Active Medications SIG Qnty Indications Ordering Date Provider Cinacalcet HCL Take 1 Tablets By Unknown 06/17/2018 60mg Mouth Every Day Tablets Acidophilus 2 tabs by mouth Unknown 06/17/2018 Lactobacillus daily Capsules Oxycodone HCL Take 1 Tablet By 12tabs Unknown 06/17/2018 5mg Tablets Mouth Every 6 Hours as Needed For Pain. Maximum Daily Dose 4 Tablets. Xifaxan 1 by mouth twice Unknown 06/17/2018 550mg Tablets daily Ferric Citrate 420 mg po tid Unknown 06/17/2018 w/meals Loperamide HCL Take One Capsule Unknown 06/17/2018 2mg By Mouth Every 6 Capsules Hours as Needed For Diarrhea -- Maximum Daily Dose Of 4 Per Day Vitamin B Complex 1 by mouth once Unknown 06/17/2018 daily Tablets Fluticasone Propionate two sprays (50 16gm J30.9 Roman Villa, 2018 mcg/spray) per M.D. 50mcg/Act Suspension nostril once daily (can also try one spray per nostril bid) for allergies Lisinopril Take 1 Tablet By Katy Johnson, 05/24/2018 10mg Tablets Mouth AT Bedtime Metoprolol Tartrate 1 tablet by mouth Katy Johnson, 04/12/2018 50mg twice daily MD Li Sertraline HCL 1.5 tabs by mouth 45tabs F43.23 Roman Villa, 12/19/2017 100mg every day for M.D. Tablets mood Blood Pressure Cuff use as directed 1units I10 Roman Villa, 12/19/2017 [facility] M.DJoey Omeprazole take 1 capsule by 60caps Roman Villa, 04/25/2017 20mg Capsules mouth two times M.DJoey GASPAR daily Simvastatin 1 tab by mouth 90tabs E11.21 Roman Villa, 02/13/2017 10mg Tablets daily at night M.Tj History Medications Benzonatate 1-2 capsules three 45caps R05 Allen, 03/08/2018 - 100mg times a day as Kathy Owens 06/17/2018 Capsules needed, for nonproductive cough Hydrocodone-Acetami Take One Tablet By 20tabs Allen, 03/08/2018 - nophen Mouth Every 6 Hours Kathy Owens 06/17/2018 5-325mg as Needed For Cough Tablets Amoxicillin 1 tab by mouth 2 14tabs Allen, 01/17/2018 - 500mg times a day x 7 days Kathy Owens 03/07/2018 Tablets Potassium Chloride Take 1 Tablet By 30tabs Allen, 01/16/2018 - ER Mouth Every Day Kathy Owens 02/21/2018 10Meq Tablets ER Evaluate For The Evaluate and treat R41.3 Ta Baxter, 12/14/2017 - Nursing Care & PT D.O. 06/17/2018 E11.21 N18.6 Olopatadine HCL 1 drop in both eyes 5ml H53.8 Allen, 10/26/2017 - 0.1% daily Kathy Owens 03/07/2018 Solution Santyl apply 1 gm ointment 60gm E11.621 Allen 10/26/2017 - 250Unit/GM qd to wound for one Kathy Owens 03/07/2018 Ointment month or until wound has closed. Sertraline HCL start 1 tab in the 60tabs F43.23 Allen, 10/26/2017 - 25mg morning, and if Kathy Owens 12/19/2017 Tablets tolerated, increase to 1 tab twice a day for anxiety and depression Metoprolol Tartrate take 1 tablet by 180tabs I10 Allen, 06/12/2017 - mouth two times Kathy Owens 04/12/2018 25mg Tablets daily Ranitidine HCL Take 1 Capsule By 90caps Sahil, 06/12/2017 - 300mg Mouth Three Times Ta, D.OJoey 06/17/2018 Capsules Daily Gabapentin 1 every morning, 2 180caps Allen, 06/11/2017 - 100mg every night at Kathy Owens 06/17/2018 Capsules bedtime for pain and sleep Tylenol give 1 tablet by Unknown 04/25/2017 - 325mg Tablets mouth [id number] as 06/17/2018 needed for pain otc Azithromycin Take 1 Tablet By 3tabs Unknown 04/25/2017 - 250mg Mouth Every Day 04/28/2017 Tablets Cefdinir Take 1 Capsule (300 4caps Unknown 04/25/2017 - 300mg MG) Every Other Day 06/21/2017 Capsules - Take After Dialysis On Dialy Hydrocodone-Acetamin Take One Tablet By 20tabs Unknown 04/25/2017 - ophen Mouth Every 6 Hours 03/08/2018 5-325mg Tablets as Needed For Pain -- Maximum D Colace 1 capsules by Unknown 04/25/2017 - 100mg Capsules mouth daily as 06/17/2018 needed for constipation Freestyle Lite Blood test twice a day 1units E11.21 Allen, 02/13/2017 - Glucose Monitoring Kathy Owens 06/21/2017 System Device Cephalexin 1 capsule by mouth L03.032 Unknown 02/07/2017 - 500mg twice daily x 10 02/17/2017 Capsules days Sulfamethoxazole/Tri 1 tablet by mouth L03.032 Unknown 02/07/2017 - methoprim DS twice a day x 10 02/17/2017 days 800-160mg Tablets Amlodipine Besylate 1 tablets by mouth 60tabs I10 Allen, 2017 - daily Kathy Owens 06/17/2018 10mg Tablets Sevelamer Carbonate 3 tablets (1600 mg) 180tabs N18.6 Silcoff, 2017 - 3 times a day with Kathy Owens 06/17/2018 800mg Tablets meals, 2 tabs if pt has a snack. Aspirin Low Dose 1 by mouth every I51.7 Unknown 2017 - 81mg day for heart 04/25/[address] michaud Nitroglycerin I10 Unknown - 0.4mg 06/17/2018 Tablets Sub Immunizations CPT Code Status Date Vaccine Lot # 32034 Given 06/06/2018 Shingrix Zoster (Shingles) Vaccine (HZV) [id number] Recomb,Subnit,Adjuvanted [id number] Given 06/06/2018 Prevnar 13 [id number] Given 12/19/2017 Shingrix Zoster (Shingles) Vaccine (HZV) [id number] Recomb,Subnit,Adjuvanted [id number] Given 12/19/2017 Adacel or Boostrix, TDaP [id number] Vital Signs Date Vital Result Comment 06/27/2018 9:47am BP Systolic 140 mmHg BP Diastolic 80 mmHg Weight 265.50 lb w/sneakers 06/21/2018 1:31pm BP Systolic 164 mmHg BP Diastolic 72 mmHg BP Systolic Recheck 220 mmHg BP Diastolic Recheck 108 mmHg Heart Rate 78 /min O2 % BldC Oximetry 98 % Body Temperature 98.5 F Weight 242.00 lb 06/06/2018 9:50am BP Systolic 184 mmHg BP Diastolic 90 mmHg BP Systolic Recheck 186 mmHg BP Diastolic Recheck 90 mmHg Height 70.25 inches 5'10.25" Weight 263.00 lb BMI (Body Mass Index) 37.5 kg/m2 03/08/2018 3:50pm BP Systolic 163 mmHg w/automatic cuff rt arm BP Diastolic 82 mmHg w/automatic cuff rt arm BP Systolic Recheck 140 mmHg BP Diastolic Recheck 88 mmHg Heart Rate 77 /min Body Temperature 98.1 F Weight 264.00 lb with shoes 01/16/2018 10:07am BP Systolic 154 mmHg recheck unchanged BP Diastolic 80 mmHg recheck unchanged Weight 258.00 lb with boot & cast, states boot & cast weigh 5 lbs 12/19/2017 2:49pm BP Systolic 180 mmHg BP Diastolic 84 mmHg Height 70.5 inches 5'10.50" Weight 258.00 lb BMI (Body Mass Index) 36.5 kg/m2 10/26/2017 1:24pm BP Systolic 142 mmHg BP Diastolic 70 mmHg BP Systolic Recheck 132 mmHg BP Diastolic Recheck 82 mmHg Weight 255.00 lb with sneakers 06/22/2017 1:43pm BP Systolic 136 mmHg BP Diastolic 70 mmHg Weight 240.00 lb 02/13/2017 10:20am BP Systolic 132 mmHg BP Diastolic 80 mmHg Height 69.5 inches 5'9.50" Weight 235.00 lb BMI (Body Mass Index) 34.2 kg/m2 Results Test Date Facility Test Result H/L Range Note CBC Auto Diff 06/07/2018 [facility] White Blood 6.9 10^3/uL N 3.5- 10.8 [phone] Count Red Blood Count 2.31 10^6/uL Low 4.18-5.48 Hemoglobin 7.9 g/dL Low 14.0-18.0 Hematocrit 23 % Low 36-46 Mean Corpuscular Volume 100 fL High 80-94 Mean Corpuscular Hemoglobin 34 pg High 27-31 Mean Corpuscular HGB Conc 34 g/dL N 31-36 Red Cell Distribution Width 15 % N 10.5-15 Platelet Count 236 10^3/uL N 150-450 Mean Platelet Volume 8.0 fL N 7.4-10.4 Abs Neutrophils 5.2 10^3/uL N 1.5-7.7 Abs Lymphocytes 1.1 10^3/uL N 1.0-4.8 Abs Monocytes 0.6 10^3/uL N 0-0.8 Abs Eosinophils 0 10^3/uL N 0-0.6 Abs Basophils 0.1 10^3/uL N 0-0.2 Abs Nucleated RBC 0 10^3/uL Granulocyte % 74.1 % Lymphocyte % 15.5 % Monocyte % 9.0 % Eosinophil % 0.6 % Basophil % 0.8 % Nucleated Red Blood Cells % 0.1 Laboratory test finding 06/07/2018 [facility] Lactic Acid 1.2 mmol/L N 0.5-2.0 1 [phone] Comp Metabolic Panel 06/07/2018 [facility] Sodium 138 mmol/L N 135- 145 [phone] Potassium 2.8 mmol/L Low 3.5-5.0 Chloride 93 mmol/L Low 101-111 Co2 Carbon Dioxide 35 mmol/L High 22-32 Anion Gap 10 mmol/L N 2-11 Glucose 112 mg/dL High 70-100 Blood Urea Nitrogen 12 mg/dL N 6-24 Creatinine 5.22 mg/dL High 0.67-1.17 BUN/Creatinine Ratio 2.3 Low 8-20 Calcium 9.0 mg/dL N 8.6-10.3 Total Protein 6.9 g/dL N 6.4-8.9 Albumin 3.7 g/dL N 3.2-5.2 Globulin 3.2 g/dL N 2-4 Albumin/Globulin Ratio 1.2 N 1-3 Total Bilirubin 0.80 mg/dL N 0.2-1.0 Alkaline Phosphatase 58 U/L N 34-104 Alt 75 U/L High 7-52 Ast 28 U/L N 13-39 Egfr Non- 11.6 >60 Egfr 14.0 >60 2 Laboratory test 06/07/2018 [facility] C Reactive 42.00 mg/L High < 8.01 finding [phone] Protein Troponin-I (TnI) 0.07 ng/mL High <0.04 3 Inr/Protime 06/07/2018 [facility] Inr 1.67 High 0.77-1.02 [phone] Laboratory test 06/07/2018 [facility] Partial 34.0 seconds N 26.0- 36.3 finding [phone] Thrombo Time PTT Urinalysis 06/07/2018 [facility] Urine Color Yellow Profile [phone] Urine Appearance Cloudy Urine Specific Hamler 1.009 Low 1.010-1.030 Urine pH 9.0 N 5-9 Urine Urobilinogen Negative Negative Urine Ketones Trace Abnormal Negative Urine Protein 3+(>=500 mg/dL) Abnormal Negative Urine Leukocytes Negative Negative Urine Blood Negative Negative Urine Nitrite Negative Negative Urine Bilirubin Negative Negative Urine Glucose 2+(150 mg/dL) Abnormal Negative Urine White Blood Cell Trace(0-5/hpf) Absent Urine Red Blood Cell Trace(0-2/hpf) Absent Urine Bacteria Absent Absent Urine Squamous Epithelial Cell Present Abnormal Absent Laboratory test finding 06/07/2018 [facility] Blood Culture SEE RESULT BELOW 4 [phone] Urine Culture And 06/07/2018 [facility] Urine Culture SEE RESULT BELOW 5 Sensitivities [phone] Laboratory test finding 06/07/2018 [facility] Acetaminophen < 15 g/ mL 6 [phone] Pediatric Blood Culture SEE RESULT BELOW 7 Rapid Influenza A 06/07/2018 [facility] Influenza A NEGATIVE Negative 8 & B Molecular [phone] Molecular Influenza B Molecular NEGATIVE Negative Laboratory test 06/07/2018 [facility] Rapid Influenza SEE RESULT 9 finding [phone] A B Antigen BELOW Laboratory test 06/06/2018 In House Hemoglobin A1c 5.5 finding Inr/Protime 05/10/2018 [facility] Inr 1.37 High 0.77-3 [phone] Laboratory test 05/10/2018 [facility] Partial Thrombo 33.6 seconds N 26.0-3 finding [phone] Time PTT 6.3 CBC Auto Diff 05/10/2018 [facility] White Blood 7.3 10^3/uL N 3.5-10 [phone] Count .8 Red Blood Count 2.68 10^6/uL Low 4.00-5.40 [...] Cells % 0 Basic Metabolic Panel 05/10/2018 [facility] Sodium 138 mmol/L N 135- 145 [phone] Potassium 2.9 mmol/L Low 3.5-5.0 Chloride 92 mmol/L Low 101-111 Co2 Carbon Dioxide 36 mmol/L High 22-32 Anion Gap 10 mmol/L N 2-11 Glucose 103 mg/dL High 70-100 Blood Urea Nitrogen 15 mg/dL N 6-24 Creatinine 4.01 mg/dL High 0.67-1.17 BUN/Creatinine Ratio 3.7 Low 8-20 Calcium 9.1 mg/dL N 8.6-10.3 Egfr Non- 15.7 >60 Egfr 19.0 >60 10 Laboratory test 03/29/2018 [facility] Tissue Culture SEE RESULT 12 finding [phone] & Sensitiv BELOW Laboratory test 03/08/2018 In House Culture Throat negative finding Culture Throat Rapid Screen negative Ua Inhouse 03/08/2018 In House Ua Glucose trace Ua Specific Hamler 1.005 Ua Blood +2 Ua PH 8.5 Ua Protein +3 Urine Microalbumin 01/16/2018 [facility] Urine Creatinine 114.23 mg/dL Random [phone] Ur Microalbumin (mg/L) > 1500.0 Urine Microalbumin/Creatinine 1313.1 High <31 Comp Metabolic Panel 01/16/2018 [facility] Sodium 140 mmol/L N 135- 145 [phone] Potassium 3.2 mmol/L Low 3.5-5.0 Chloride 93 mmol/L Low 101-111 Co2 Carbon Dioxide 32 mmol/L N 22-32 Anion Gap 15 mmol/L High 2-11 Glucose 199 mg/dL High 70-100 Blood Urea Nitrogen 33 mg/dL High 6-24 Creatinine 8.00 mg/dL High 0.67-1.17 BUN/Creatinine Ratio 4.1 Low 8-20 Calcium 7.6 mg/dL Low 8.6-10.3 Total Protein 7.2 g/dL N 6.4-8.9 Albumin 4.2 g/dL N 3.2-5.2 Globulin 3.0 g/dL N 2-4 Albumin/Globulin Ratio 1.4 N 1-3 Total Bilirubin 0.60 mg/dL N 0.2-1.0 Alkaline Phosphatase 119 U/L High 34-104 Alt 10 U/L N 7-52 Ast 12 U/L Low 13-39 Egfr Non- 7.1 >60 Egfr 8.6 >60 13 Laboratory test 01/16/2018 [facility] Hemoglobin A1c 5.3 % N 4.0-5.6 14 finding [phone] (Glyco HGB) Urine Culture And 01/16/2018 [facility] Urine Culture SEE RESULT 15 Sensitivities [phone] BELOW Urinalysis Profile 01/16/2018 [facility] Urine Color Yellow [phone] Urine Appearance Cloudy Urine Specific Ham[place] 1.010 N 1.010-1.030 Urine pH 9.0 N 5-9 Urine Urobilinogen Negative Negative Urine Ketones Negative Negative Urine Protein 3+(>=500 mg/dL) Abnormal Negative Urine Leukocytes Negative Negative Urine Blood 1+ Abnormal Negative Urine Nitrite Negative Negative Urine Bilirubin Negative Negative Urine Glucose 3+(>=500 mg/dL) Abnormal Negative Urine White Blood Cell Trace(0-5/hpf) Absent Urine Red Blood Cell 1+(3-5/hpf) Abnormal Absent Urine Bacteria Absent Absent Urine Squamous Epithelial Cell Present Abnormal Absent Inr/Protime 01/16/2018 [facility] Inr 1.20 High 0.77-1.02 [phone] CBC Auto Diff 01/16/2018 [facility] White Blood 7.9 10^3/uL N 3.5- 10.8 [phone] Count Red Blood Count 2.95 10^6/uL Low 4.00-5.40 Hemoglobin 10.7 g/dL Low 14.0-18.0 Hematocrit 30 % Low 42-52 Mean Corpuscular Volume 102 fL High 80-94 Mean Corpuscular Hemoglobin 36 pg High 27-31 Mean Corpuscular HGB Conc 36 g/dL N 31-36 Red Cell Distribution Width 14 % N 10.5-15 Platelet Count 301 10^3/uL N 150-450 Mean Platelet Volume 8.1 fL N 7.4-10.4 Abs Neutrophils 5.5 10^3/uL N 1.5-7.7 Abs Lymphocytes 1.8 10^3/uL N 1.0-4.8 Abs Monocytes 0.5 10^3/uL N 0-0.8 Abs Eosinophils 0.1 10^3/uL N 0-0.6 Abs Basophils 0.1 10^3/uL N 0-0.2 Abs Nucleated RBC 0 10^3/uL Granulocyte % 69.0 % N 38-83 Lymphocyte % 22.6 % Low 25-47 Monocyte % 6.6 % N 0-7 Eosinophil % 1.0 % N 0-6 Basophil % 0.8 % N 0-2 Nucleated Red Blood Cells % 0 Laboratory test 10/26/2017 In House Hemoglobin A1c 5.5 finding Laboratory test 07/28/2017 [facility] Troponin-I (TnI) 0.03 ng/mL < 0.04 finding [phone] Inr/Protime 07/28/2017 [facility] Inr 1.20 High 0.77-1. [phone] Laboratory test 07/28/2017 [facility] Lactic Acid 1.9 mmol/L N 0.5- 2.0 16 finding [phone] CBC Auto Diff 07/28/2017 [facility] White Blood Count 8.7 N 3.5-10. [phone] 10^3/uL 8 Red Blood Count 3.68 10^6/uL Low 4.0-5.4 Hemoglobin 12.5 g/dL Low 14.0-18.0 Hematocrit 36 % Low 42-52 Mean Corpuscular Volume 99 fL High 80-94 Mean Corpuscular Hemoglobin 34 pg High 27-31 Mean Corpuscular HGB Conc 35 g/dL N 31-36 Red Cell Distribution Width 18 % High 10.5-15 Platelet Count 202 10^3/uL N 150-450 Mean Platelet Volume 7.9 um3 N 7.4-10.4 Abs Neutrophils 5.7 10^3/uL N 1.5-7.7 Abs Lymphocytes 1.8 10^3/uL N 1.0-4.8 Abs Monocytes 1.0 10^3/uL High 0-0.8 Abs Eosinophils 0.1 10^3/uL N 0-0.6 Abs Basophils 0.1 10^3/uL N 0-0.2 Abs Nucleated RBC 0 10^3/uL Granulocyte % 66.1 % N 38-83 Lymphocyte % 20.6 % Low 25-47 Monocyte % 11.7 % High 0-7 Eosinophil % 0.9 % N 0-6 Basophil % 0.7 % N 0-2 Nucleated Red Blood Cells % 0 Laboratory test 07/28/2017 [facility] B-Type Natriuretic 39 pg/mL 17 finding [phone] Peptide BNP Comp Metabolic 07/28/2017 [facility] Sodium 134 mmol/L Low 139-14 Panel [phone] Potassium 3.2 mmol/L Low 3.5-5.0 Chloride 89 mmol/L Low 101-111 Co2 Carbon Dioxide 32 mmol/L N 22-32 Anion Gap 13 mmol/L High 2-11 Glucose 94 mg/dL N 70-100 Blood Urea Nitrogen 19 mg/dL N 6-24 Creatinine 5.39 mg/dL High 0.67-1.17 BUN/Creatinine Ratio 3.5 Low 8-20 Calcium 9.3 mg/dL N 8.6-10.3 Total Protein 7.6 g/dL N 6.4-8.9 Albumin 4.3 g/dL N 3.2-5.2 Globulin 3.3 g/dL N 2-4 Albumin/Globulin Ratio 1.3 N 1-3 Total Bilirubin 0.70 mg/dL N 0.2-1.0 Alkaline Phosphatase 107 U/L High 34-104 Alt 9 U/L N 7-52 Ast 13 U/L N 13-39 Egfr Non- 11.2 >60 Egfr 14.4 >60 18 Laboratory test 07/28/2017 [facility] Troponin-I (TnI) 0.04 ng/mL High <0.04 19 finding [phone] TSH (Thyroid Stim Horm) 1.44 mcIU/mL N 0.34-5.60 Type & Screen 05/21/2017 [facility] Patient Blood Type A Positive 20 [phone] Antibody Screen NEGATIVE Laboratory test 05/21/2017 [facility] Packed Cells SEE RESULTS 21 finding [phone] BELO <SEE NOTE> Laboratory test 05/07/2017 [facility] Lactic Acid 1.5 mmol/L N 0.5- 2.0 22 finding [phone] Laboratory test 05/01/2017 [facility] Surgical SEE RESULT 23 finding [phone] Interface Order BELOW Laboratory test 05/01/2017 [facility] Clotest SEE RESULT 24 finding [phone] BELOW Urinalysis 02/17/2017 [facility] Urine Color Straw Profile [phone] Urine Appearance Clear Urine Specific Ham[place] 1.004 Low 1.010-1.030 Urine pH 9.0 N 5-9 Urine Urobilinogen Negative Negative Urine Ketones Negative Negative Urine Protein 3+(>=500 mg/dL) Abnormal Negative Urine Leukocytes Negative Negative Urine Blood Negative Negative Urine Nitrite Negative Negative Urine Bilirubin Negative Negative Urine Glucose 1+(50 mg/dL) Abnormal Negative Urine White Blood Cell 1+(6-10/hpf) Abnormal Absent Urine Red Blood Cell 1+(3-5/hpf) Abnormal Absent Urine Bacteria Absent Absent Laboratory test 02/17/2017 [facility] Wound Culture/Sensi SEE RESULT 25 finding [phone] BELOW MRSA/S. aureus Ssti PCR SEE RESULT BELOW 26 Laboratory test 02/17/2017 [facility] Lactic Acid 0.9 mmol/L N 0.5- 2.0 27 finding [phone] Laboratory test 02/17/2017 [facility] Erythrocyte Sed 120 mm/Hr High 0-20 finding [phone] Rate Blood Culture SEE RESULT BELOW 28 CBC Auto Diff 02/17/2017 [facility] White Blood 11.8 10^3/uL High 3.5 -10.8 [phone] Count Red Blood Count 2.45 10^6/uL Low 4.0-5.4 Hemoglobin 7.9 g/dL Low 14.0-18.0 Hematocrit 24 % Low 42-52 Mean Corpuscular Volume 98 fL High 80-94 Mean Corpuscular Hemoglobin 32 pg High 27-31 Mean Corpuscular HGB Conc 33 g/dL N 31-36 Red Cell Distribution Width 15 % N 10.5-15 Platelet Count 336 10^3/uL N 150-450 Mean Platelet Volume 8 um3 N 7.4-10.4 Abs Neutrophils 8.9 10^3/uL High 1.5-7.7 Abs Lymphocytes 1.4 10^3/uL N 1.0-4.8 Abs Monocytes 1.2 10^3/uL High 0-0.8 Abs Eosinophils 0.2 10^3/uL N 0-0.6 Abs Basophils 0.1 10^3/uL N 0-0.2 Abs Nucleated RBC 0.01 10^3/uL Granulocyte % 75.0 % N 38-83 Lymphocyte % 11.7 % Low 25-47 Monocyte % 10.0 % High 1-9 Eosinophil % 2.1 % N 0-6 Basophil % 1.2 % N 0-2 Nucleated Red Blood Cells % 0 Laboratory test finding 02/17/2017 [facility] Uric Acid 3.1 mg/dL Low 4.4-7.6 [phone] C Reactive Protein 12.71 mg/L High < 5.00 29 Comp Metabolic Panel 02/17/2017 [facility] Sodium 135 mmol/L N 133- 145 [phone] Potassium 4.9 mmol/L N 3.5-5.0 Chloride 96 mmol/L Low 101-111 Co2 Carbon Dioxide 32 mmol/L N 22-32 Anion Gap 7 mmol/L N 2-11 Glucose 102 mg/dL High 70-100 Blood Urea Nitrogen 23 mg/dL N 6-24 Creatinine 4.62 mg/dL High 0.67-1.17 BUN/Creatinine Ratio 5.0 Low 8-20 Calcium 8.8 mg/dL N 8.6-10.3 Total Protein 6.6 g/dL N 6.4-8.9 Albumin 3.3 g/dL N 3.2-5.2 Globulin 3.3 g/dL N 2-4 Albumin/Globulin Ratio 1.0 N 1-3 Total Bilirubin 0.40 mg/dL N 0.2-1.0 Alkaline Phosphatase 186 U/L High 34-104 Alt 11 U/L N 7-52 Ast 14 U/L N 13-39 Egfr Non- 13.4 >60 Egfr 17.2 >60 30 Lipid Profile 02/15/2017 [facility] Triglycerides 121 mg/dL 31 (Trig/Chol/HDL) [phone] Cholesterol 126 mg/dL 32 HDL Cholesterol 43.4 mg/dL 33 LDL Cholesterol 58 mg/dL 34 Comp Metabolic Panel 02/15/2017 [facility] Sodium 138 mmol/L N 133- 145 [phone] Potassium 4.7 mmol/L N 3.5-5.0 Chloride 95 mmol/L Low 101-111 Co2 Carbon Dioxide 34 mmol/L High 22-32 Anion Gap 9 mmol/L N 2-11 Glucose 74 mg/dL N 70-100 Blood Urea Nitrogen 14 mg/dL N 6-24 Creatinine 3.31 mg/dL High 0.67-1.17 BUN/Creatinine Ratio 4.2 Low 8-20 Calcium 8.4 mg/dL Low 8.6-10.3 Total Protein 6.4 g/dL N 6.4-8.9 Albumin 3.3 g/dL N 3.2-5.2 Globulin 3.1 g/dL N 2-4 Albumin/Globulin Ratio 1.1 N 1-3 Total Bilirubin 0.50 mg/dL N 0.2-1.0 Alkaline Phosphatase 180 U/L High 34-104 Alt 10 U/L N 7-52 Ast 15 U/L N 13-39 Egfr Non- 19.6 >60 Egfr 25.3 >60 35 CBC Auto Diff 02/15/2017 [facility] White Blood 11.5 10^3/uL High 3.5 -10.8 [phone] Count Red Blood Count 2.66 10^6/uL Low 4.0-5.4 Hemoglobin 8.5 g/dL Low 14.0-18.0 Hematocrit 26 % Low 42-52 Mean Corpuscular Volume 98 fL High 80-94 Mean Corpuscular Hemoglobin 32 pg High 27-31 Mean Corpuscular HGB Conc 33 g/dL N 31-36 Red Cell Distribution Width 15 % N 10.5-15 Platelet Count 351 10^3/uL N 150-450 Mean Platelet Volume 9 um3 N 7.4-10.4 Abs Neutrophils 9.4 10^3/uL High 1.5-7.7 Abs Lymphocytes 1.1 10^3/uL N 1.0-4.8 Abs Monocytes 0.7 10^3/uL N 0-0.8 Abs Eosinophils 0.1 10^3/uL N 0-0.6 Abs Basophils 0.1 10^3/uL N 0-0.2 Abs Nucleated RBC 0 10^3/uL Granulocyte % 82.1 % N 38-83 Lymphocyte % 9.8 % Low 25-47 Monocyte % 6.5 % N 1-9 Eosinophil % 0.9 % N 0-6 Basophil % 0.7 % N 0-2 Nucleated Red Blood Cells % 0 Laboratory test 02/15/2017 [facility] TSH (Thyroid 3.28 mcIU/mL N 0.34-5.60 finding [phone] Stim Horm) Laboratory test 02/13/2017 In House Hemoglobin A1c 5.7 finding CBC Auto Diff 02/06/2017 [facility] White Blood 8.1 10^3/uL N 3.5- 10.8 [phone] Count Red Blood Count 2.48 10^6/uL Low 4.0-5.4 Hemoglobin 8.0 g/dL Low 14.0-18.0 Hematocrit 24 % Low 42-52 Mean Corpuscular Volume 99 fL High 80-94 Mean Corpuscular Hemoglobin 32 pg High 27-31 Mean Corpuscular HGB Conc 33 g/dL N 31-36 Red Cell Distribution Width 15 % N 10.5-15 Platelet Count 298 10^3/uL N 150-450 Mean Platelet Volume 9 um3 N 7.4-10.4 Abs Neutrophils 6.2 10^3/uL N 1.5-7.7 Abs Lymphocytes 0.9 10^3/uL Low 1.0-4.8 Abs Monocytes 0.8 10^3/uL N 0-0.8 Abs Eosinophils 0.1 10^3/uL N 0-0.6 Abs Basophils 0.1 10^3/uL N 0-0.2 Abs Nucleated RBC 0 10^3/uL Granulocyte % 76.5 % N 38-83 Lymphocyte % 11.1 % Low 25-47 Monocyte % 9.9 % High 1-9 Eosinophil % 1.5 % N 0-6 Basophil % 1.0 % N 0-2 Nucleated Red Blood Cells % 0 Comp Metabolic Panel 02/06/2017 [facility] Sodium 137 mmol/L N 133- 145 [phone] Potassium 4.3 mmol/L N 3.5-5.0 Chloride 97 mmol/L Low 101-111 Co2 Carbon Dioxide 32 mmol/L N 22-32 Anion Gap 8 mmol/L N 2-11 Glucose 110 mg/dL High 70-100 Blood Urea Nitrogen 23 mg/dL N 6-24 Creatinine 4.46 mg/dL High 0.67-1.17 BUN/Creatinine Ratio 5.2 Low 8-20 Calcium 8.2 mg/dL Low 8.6-10.3 Total Protein 6.3 g/dL Low 6.4-8.9 Albumin 3.3 g/dL N 3.2-5.2 Globulin 3.0 g/dL N 2-4 Albumin/Globulin Ratio 1.1 N 1-3 Total Bilirubin 0.50 mg/dL N 0.2-1.0 Alkaline Phosphatase 176 U/L High 34-104 Alt 26 U/L N 7-52 Ast 24 U/L N 13-39 Egfr Non- 13.9 >60 Egfr 17.9 >60 36 Laboratory test finding 02/06/2017 [facility] Lipase 28 U/L N 11.0- 82.0 [phone] 1 [facility] Severe Sepsis and Septic Shock Management Bundle Measure requires all lactic acids initially measuring >2.0 mmol/L be repeated. 2 Because ethnic data is not always [...] 5 Kidney failure <15 (or dialysis) 3 Result TnIDx:0.07 Called to [id number] at: 16:26:39 by:[id number] Read back by: [id number] Troponin-I testing on Plasma Separator Tubes (PST) has a known false positive rate of 0.20-0.40%. All positive troponins reflex immediate secondary confirmatory testing. 4 SEE RESULT BELOW Name: KATY SINGLETARY : [address]: Philly Miller MD Acct: [id number] Unit: [id number] AGE: 53 Location: [place] [address] Re06/07/18 SEX: M Status: ADM IN SPEC: [id number] ANGELES: 06/07/[address] [facility] [address]: Ellis Elise MD REQ: [id number] RECD: 06/07/18 STATUS: ROM OZUNA DR: [facility] _ SOURCE: BLOOD,VENO SPDESC: ORDERED: Blood Cult Procedure Result Reported Site Aerobic Culture Bottle Final 06/12/18- 1506 ML No Growth Day 5 Anaerobic Culture Bottle Final 06/12/18- 1506 ML No Growth Day 5 * ML - Main Lab . END OF REPORT DEPARTMENT OF PATHOLOGY, [address] [place] [address] Juan Deleon M.D. Director [facility] # [id number] 5 SEE RESULT BELOW Name: KATY SINGLETARY : [address]: Jamal Mcghee MD Acct: [id number] Unit: [id number] AGE: 53 Location: [place] [address] Re06/07/18 SEX: M Status: ADM IN SPEC: [id number] ANGELES: 06/07/18-[address]: Ellis Elise MD REQ: [id number] RECD: 06/07/18 STATUS: ROM OZUNA DR: Lety JARVIS _ SOURCE: URINE SPDESC: ORDERED: Urine Culture Procedure Result Reported Site Urine Culture Final 06/09/18- 0916 ML No growth of clinically significant organisms * ML - Main Lab . END OF REPORT DEPARTMENT OF PATHOLOGY, [address] [place] [address] Juan Deleon M.D. Director [facility] # [id number] 6 Therapeutic concentration: <50 ug/mL Toxic concentration: >120 ug/mL 7 SEE RESULT BELOW Name: YEISONKATY oDnnell : [address]: Philly Miller MD Acct: [id number] Unit: [id number] AGE: 53 Location: [place] [address] Re06/07/18 SEX: M Status: ADM IN SPEC: [id number] ANGELES: 06/07/[address] [facility] [address]: Ellis Elise MD REQ: [id number] RECD: 06/07/18 STATUS: ROM OZUNA DR: Lety Santamaria [facility] _ SOURCE: BLOOD,VENO SPDESC: ORDERED: Blood Cult, Pediatric Bottl Procedure Result Reported Site Pediatric Blood Culture Final 06/12/181510 ML No Growth Day 5 * ML - Main Lab . END OF REPORT DEPARTMENT OF PATHOLOGY, [address] [place] [address] Juan Deleon M.D. Director [facility] # [id number] Cna: [id number] 9 SEE RESULT BELOW Name: KATY SINGLETARY Donnell : [address]: Ellis Elise MD Acct: [id number] Unit: [id number] AGE: 53 Location: ED Re06/07/18 SEX: M Status: REG ER SPEC: [id number] ANGELES: 06/07/18-[address] [facility] [address]: Ellis Elise MD REQ: [id number] RECD: 06/07/18150 STATUS: ROM OZUNA DR: Lety JARVIS _ SOURCE: NASAL SPDESC: ORDERED: Campbell Fontenot B Request Procedure Result Reported Site Rapid Influenza A B Request Final 06/07/18- 1529 ML Specimen received for Influenza A/B Molecular testing * ML - Main Lab . END OF REPORT DEPARTMENT OF PATHOLOGY, [address] [place] [address] Juan Deleon M.D. Director [facility] # [id number] 10 Because ethnic data is not always [...] 5 Kidney failure <15 (or dialysis) 11 RIGHT FOOT 12 SEE RESULT BELOW Name: KATY SINGLETARY : [address]: Amparo Landis NP Acct: [id number] Unit: [id number] AGE: 53 Location: [place] Re03/29/18 SEX: M Status: REG REF SPEC: [id number] ANGELES: 03/29/18-[address]: Amparo Landis NP REQ: [id number] RECD: 03/29/18 STATUS: ROM OZUNA DR: Let[facility] _ SOURCE: TISSUE SPDESC:RIGHT ORDERED: Tissue Cult/GS [...] CONTINUED ON NEXT PAGE DEPARTMENT OF PATHOLOGY, [address] [place] [address] Juan Deleon M.D. Director [facility] # [id number] Patient: KATY SINGLETARY [id number] (Continued) Specimen: [id number] Collected: 03/29/18-141 Received: 03/29/18-782 (Continued) Procedure Result Reported Site Tissue Culture [...] Department for any additional antibiotic reporting. * ML - Main Lab . END OF REPORT DEPARTMENT OF PATHOLOGY, [address] [place] [address] Juan Deleon M.D. Director [facility] # [id number] 13 Because ethnic data is not always [...] 5 Kidney failure <15 (or dialysis) 14 Therapeutic target for the treatment of diabetes mellitus patients is <7% HBA1C, and in selective patients <6.0%. Please refer to [place] [employer] diabetic care guidelines for further information. 15 SEE RESULT BELOW Name: KATY SINGLETARY : [address]: Lety JARVIS Acct: [id number] Unit: [id number] AGE: 52 Location: [facility] Re01/16/18 SEX: M Status: REG REF SPEC: [id number] ANGELES: 01/16/[address]: Lety JARVIS REQ: [id number] RECD: 01/16/18 STATUS: ROM CONTRERAS DR: Scott Boyd MD _ SOURCE: URINE SPDESC: ORDERED: Urine Culture Procedure Result Reported Site Urine Culture Final 01/17/18- 1525 ML Organism 1 STREP GROUP B [place] Count 1-10,000 (Few) CFU/ML Susceptibility testing of penicillins and other B-lactams approved by FDA for treatment of Streptococcus pyogenes (Group A Strep) and Streptococcus agalactiae (Group B Strep) is not necessary for clinical purposes and need not be done routinely, since as with vancomycin, resistant strains have not been recognized. (CLSI G435-N07;p.66) Positive isolates will be saved for one week. Please call the Microbiology Laboratory if further susceptibility testing is needed. * ML - Main Lab . END OF REPORT DEPARTMENT OF PATHOLOGY, [address] [place] [address] Juan Deleon M.D. Director [facility] # [id number] 16 [facility] Severe Sepsis and Septic Shock Management Bundle Measure requires all lactic acids initially measuring >2.0 mmol/L be repeated. 17 >100 to <200 pg/mL: likely compensated congestive heart failure (CHF) 200 to 400 pg/mL: likely moderate CHF >400 pg/mL: likely moderate to severe CHF 18 Because ethnic data is not always readily [...] 15-29 5 Kidney failure <15 (or dialysis) 19 Result TnIDx:0.04 Called to [id number] at: 17:43:09 by:[id number] Read back by: [id number] 20 BLOOD WORK 21 SEE RESULTS BELOW [id number] AP PC TRANSFUSED 05/21/172000 [facility] Severe Sepsis and Septic Shock Management Bundle Measure requires all lactic acids initially measuring >2.0 mmol/L be repeated. 23 SEE RESULT BELOW Name: KATY SINGLETARY : [address]: Garry Javed MD Acct: [id number] Unit: [id number] AGE: 52 Location: [facility] Re05/01/17 SEX: M Status: DEP REF SPEC: [id number] ANGELES: 05/01/17- SUBM DR: Garry Javed MD REQ: [id number] RECD: 05/01/17 STATUS: CINTIA OZUNA DR: Lety Santamaria [facility] Katy Johnson MD _ ORDERED: LEVEL 4/3, IMMUNO-FIRST, SPEC ST NON-ORG Addendum: An immunohistochemical stain for Helicobacter pylori-like organisms was performed with appropriate controls on part 1 and is negative. Addendum Signed (signature on file) uJan Deleon MD 1026 FINAL DIAGNOSIS 1. Stomach, antrum, biopsy: -- Gastric antral mucosa with chronic inflammation and foveolar hyperplasia, and mild superficial interstitial fibrosis. See comment. -- No active gastritis nor Helicobacter pylori-like organisms seen by H E microscopy. 2. Colon, mid right, biopsy: -- Tubular adenoma. -- No high grade dysplasia or malignancy. 3. Colon, distal right, biopsy: -- Tubular adenoma. -- No high grade dysplasia or malignancy. Comment: Increased eosinophilic connective tissue is noted in the superficial portion of the antral mucosa in association with foveolar hyperplasia. A Congo red stain was performed with appropriate controls and evaluated under polarized light to rule out amyloidosis. The study is negative. CONTINUED ON NEXT PAGE * ML=Testing performed at Main Lab DEPARTMENT OF PATHOLOGY, [address] [place] [address] Juan Deleon M.D. Director [facility] # [id number] RUN DATE: 05/04/17 [facility] LAB LIVE PAGE 2 Patient: KATY SINGLETARY [id number] (Continued) CLINICAL HISTORY (Continued) CLINICAL HISTORY Anemia, heme positive POST-OPERATIVE DIAGNOSIS Larynx ? normal; esophagus ? normal; esophagogastric 40; stomach ? proximal antral ulcer 5 o?clock, clean base ? swollen biopsied x4; duodenum ? normal. Colonoscopy ? left 2+ diverticulosis; polyp mid right. Conclusions/Plan: Gastric ulcer, diverticulosis, right colon polyps GROSS DESCRIPTION 1. The specimen is received in formalin labeled, Biopsy Gastric Antral Ulcer, and consists of a 0.6 x 0.4 by up to 0.3 cm aggregate of hector-pink irregular soft tissue fragments which is submitted entirely in one cassette. 2. The specimen is received in formalin labeled, Mid Right Colon Polyp, and consists of a 1.0 x 0.8 by up to 0.5 cm aggregate of hector-brown irregular to polypoid soft tissue fragments which is submitted entirely in one cassette. 3. The specimen is received in formalin labeled, Biopsy Distal Right Colon Polyp, and consists of a 0.5 x 0.2 by up to 0.2 cm hector-pink irregular soft tissue fragment which is submitted entirely in one cassette. Signed (signature on file) Juan Deleon MD 1024 END OF REPORT * ML=Testing performed at Main Lab DEPARTMENT OF PATHOLOGY, [address] [place] [address] Juan Deleon M.D. Director [facility] # [id number] 24 SEE RESULT BELOW Name: YEISONKATY : [address]: Garry Javed MD Acct: [id number] Unit: [id number] AGE: 52 Location: ENDO Re05/01/17 SEX: M Status: DEP REF SPEC: [id number] ANGELES: 05/01/17-[address] [facility] [address]: Garry Javed MD REQ: [id number] RECD: 05/03/17-6083 STATUS: ROM OZUNA DR: Lety JARVIS _ SOURCE: GAS ANTRUM SPDESC: ORDERED: Clotest Procedure Result Reported Site Clotest Final 05/04/17- 930 ML Clotest Negative * ML - MAIN LAB ([facility]) . END OF REPORT * ML=Testing performed at Main Lab DEPARTMENT OF PATHOLOGY, [address] [place] [address] Juan Deleon M.D. Director [facility] # [id number] 25 SEE RESULT BELOW Name: KATY SINGLETARY : [address]: Fermín Oscar MD Acct: [id number] Unit: [id number] AGE: 52 Location: ED Re02/17/17 SEX: M Status: REG ER SPEC: [id number] ANGELES: 02/17/[address]: Fermín Oscar MD REQ: [id number] RECD: 02/17/17 STATUS: RES SULMA DR: Lety Santamaria [facility] _ SOURCE: FOOT,LEFT SPDES: ORDERED: Culture Stain Procedure Result Reported Site Wound/Misc Gram Stain Final 02/17/17- 1902 ML 1+ Epithelial Cells 1+ Neutrophils 4+ Gram Positive Cocci in Clusters, resembling Staph 3+ Gram Negative Bacilli Wound/Misc Culture PENDING * ML - MAIN LAB ([facility]) . END OF REPORT * ML=Testing performed at Main Lab DEPARTMENT OF PATHOLOGY, [address] [place] [address] Juan Deleon M.D. Director [facility] # [id number] 26 SEE RESULT BELOW Name: KATY SINGLETARY : [address]: Philly Miller MD Acct: [id number] Unit: [id number] AGE: 52 Location: [place] [address] Re02/17/17 SEX: M Status: ADM IN SPEC: [id number] ANGELES: 02/17/[address] [facility] [address]: Fermín Oscar MD REQ: [id number] RECD: 02/17/17 STATUS: ROM OZUNA DR: Lety JARVIS _ SOURCE: FOOT,LEFT SPDESC: ORDERED: MRSA/SA SSTI, Culture Stain Procedure Result Reported Site MRSA/S. aureus SSTI PCR Final 02/17/17- 2008 ML Organism 1 MRSA NEGATIVE Organism 2 S.AUREUS NEGATIVE Wound/Misc Gram Stain Final 02/17/17- 1902 ML 1+ Epithelial Cells 1+ Neutrophils 4+ Gram Positive Cocci in Clusters, resembling Staph 3+ Gram Negative Bacilli Wound/Misc Culture Final 02/20/17- 1027 ML Organism 1 ENTEROCOCCUS FAECALIS Quantity 3+ Organism 2 NORMAL KEVIN Quantity 2+ 1. ENTEROCOCCUS FAECALIS M.I.C. RX --------- ------ Ampicillin <=2 S Penicillin 8 S Ciprofloxacin <=0.5 S Erythromycin 2 I Gentamicin High Level S Levofloxacin 1 S Linezolid 2 S Nitrofurantoin <=16 S * Quinupristin/Dalfopristin 4 R CONTINUED ON NEXT PAGE * ML=Testing performed at Main Lab DEPARTMENT OF PATHOLOGY, [address] [place] [address] Juan Deleon M.D. Director [facility] # [id number] Patient: KATY SINGLETARY [id number] (Continued) Specimen: [id number] Collected: 02/17/17 Received: 02/17/17 (Continued) Procedure Result Reported Site Wound/Misc Culture Final (continued) 02/20/17- 1026 1. ENTEROCOCCUS FAECALIS (continued) M.I.C. RX --------- ------ * Streptomycin High Level S Tetracycline >=16 R Tigecycline <=0.12 S Vancomycin 1 S Imipenem-Deduced S * Ampicillin/Sulbactam-Deduced S * These antibiotics are not available in the [facility] Formulary Contact the Microbiology Department for any additional antibiotic reporting. * ML - MAIN LAB ([facility]) . END OF REPORT * ML=Testing performed at Main Lab DEPARTMENT OF PATHOLOGY, [address] [place] [address] Juan Deleon M.D. Director [facility] # [id number] 27 [facility] Severe Sepsis and Septic Shock Management Bundle Measure requires all lactic acids initially measuring >2.0 mmol/L be repeated. 28 SEE RESULT BELOW Name: KATY SINGLETARY : [address]: Philly Miller MD Acct: [id number] Unit: [id number] AGE: 52 Location: [place] [address] Re02/17/17 SEX: M Status: ADM IN SPEC: [id number] ANGELES: 02/17/17-[address] [facility] [address]: Fermín Oscar MD REQ: [id number] RECD: 02/17/17 STATUS: RES [facility] DR: Lety Santamaria [facility] _ SOURCE: BLOOD,VENO SPDESC: ORDERED: Blood Cult Procedure Result Reported Site Aerobic Culture Bottle Preliminary 02/18/17- 1809 ML No Growth Day 1 Anaerobic Culture Bottle Preliminary 02/18/17- 1807 ML No Growth Day 1 * ML - MAIN LAB ([facility]) . END OF REPORT * ML=Testing performed at Main Lab DEPARTMENT OF PATHOLOGY, [address] [place] [address] Juan Deleon M.D. Director [facility] # [id number] 29 Acute inflammation: >10.00 30 Because ethnic data is not always readily [...] 15-29 5 Kidney failure <15 (or dialysis) 31 Desirable: <150 Borderline High: 150-199 High: 200-499 Very High: >500 32 Desirable: <200 Borderline High: 200-239 High: >239 33 Low: <40 Desirable: 40-60 High: >60 34 Desirable: <100 Near Optimal: 100-129 Borderline High: 130-159 High: 160-189 Very High: >189 35 Because ethnic data is not always readily [...] 15-29 5 Kidney failure <15 (or dialysis) 36 Because ethnic data is not always readily [...] (or dialysis) Procedures Date Code Description Status 01/16/2018 28302 Brief Emotional/Behav Assessment W/ Scoring Doc Per Completed Standard Inst 01/02/2018 300888070 Diabetic Retinal Eye Exam Completed 05/01/2017 51050484 Colonoscopy Completed 03/12/2017 290010072 Diabetic Foot Exam Completed Encounters Type Date Location Provider Dx Diagnosis Office Visit 06/21/2018 Main Office Riddhi Storey, I16.1 Hypertensive emergency 1:40p P.A. 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 mellitus with diabetic nephropathy R19.7 Diarrhea, unspecified T36.0x5A Adverse effect of penicillins, initial encounter D63.1 Anemia in chronic kidney disease Z99.2 Dependence on renal dialysis N18.6 End stage renal disease Z23 Encounter for immunization Z00.01 Encounter for general adult medical exam w abnormal findings Office Visit 03/08/2018 4:00p Main Office Riddhi Storey, J02.9 Acute pharyngitis, P.A. 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 N18.6 End stage renal disease Z99.2 Dependence on renal dialysis I10 Essential (primary) hypertension L97.519 Non-prs chronic ulcer oth prt right foot w unsp severity F43.23 Adjustment disorder with mixed anxiety and depressed mood Office Visit 12/19/2017 2:40p Main Office Lety Santamaria, R07.9 Chest pain , PA unspecified I10 Essential (primary) hypertension N18.6 End stage renal disease E11.21 Type 2 diabetes mellitus with diabetic nephropathy L97.519 Non-prs chronic ulcer oth prt right foot w unsp severity Z23 Encounter for immunization Z99.2 Dependence on renal dialysis E11.621 Type 2 diabetes mellitus with foot ulcer Office Visit 10/26/2017 1:20p Main Office Riddhi Storey, E11.21 Type 2 diabetes P.A. mellitus with diabetic nephropathy N18.4 Chronic kidney disease, stage 4 (severe) I10 Essential (primary) hypertension D63.1 Anemia in chronic kidney disease H53.8 Other visual disturbances E11.621 Type 2 diabetes mellitus with foot ulcer G47.00 Insomnia, unspecified F43.23 Adjustment disorder with mixed anxiety and depressed mood R41.3 Other amnesia Office Visit 06/22/2017 1:40p Main Office Riddhi [place], E11.21 Type 2 diabetes P.A. mellitus with diabetic nephropathy N18.4 Chronic kidney disease, stage 4 (severe) I10 Essential (primary) hypertension D63.1 Anemia in chronic kidney disease I51.7 Cardiomegaly R63.4 Abnormal weight loss Z89.432 Acquired absence of left foot N18.6 End stage renal disease G89.4 Chronic pain syndrome G47.00 Insomnia, unspecified Office Visit 02/13/2017 10:05a Main Office Lety Santamaria, E11.21 Type 2 diabetes PA mellitus with diabetic nephropathy N18.4 Chronic kidney disease, stage 4 (severe) I10 Essential (primary) hypertension D63.1 Anemia in chronic kidney disease I51.7 Cardiomegaly L03.032 Cellulitis of left toe R63.4 Abnormal weight loss F43.20 Adjustment disorder, unspecified Plan of Treatment No Information Available
--- OUTSIDE RECORDS SUMMARY | 2018-07-01 09:53 | XMS REPORT | Continuity of Care Document ---
:1965 External Reference #:[id number] Author Name Ta Baxter D.O. Address [address] [place] [id number] Care Team Providers Name Role Phone HCP given Primary Care Physician Unavailable Payers Date Identification Numbers Payment Provider Subscriber Effective: Policy Number: Zia Singletary 2017 [id number] Ind/Ppo/Hmo/Pos PayID: [id number] [address] [address] [place] [address] Effective: 1999 Policy Number: [facility] Katy Singletary [id number] PayID: [id number] [address] [place] [address] Advance Directives Description No Information Available Problems [...] History Date Family Member(s) Observation Comments Father [place] Mother due to Liver Cancer () Paternal Grandmother Diabetes, Nos Maternal Grandfather Heart Disease Maternal Grandfather due to Heart Disease () Maternal Uncles due to CAD () Social History Type Date Description Comments Sex Unknown Education High School Completed Marital Status 12/2016 Lives With Alone Has daughter, but she is working on her Masters' degree, down in [place], [place]. Occupation [employer] Work Status Not Currently Working disability 2017 Years Employed over 30 years 20 years spent working at [employer] 06/06/2018 Right-handed Tobacco Use Start: Unknown Denies [...] as directed 1units I10 [place], [facility]19/2017 [facility] Omeprazole take 1 capsule by 60caps [...] by Unknown 04/25/2017 - 325mg Tablets mouth [id number] as 06/17/2018 needed for pain otc Azithromycin [...] CPT Code Status Date Vaccine Lot # [id number] Given 06/06/2018 Shingrix Zoster (Shingles) Vaccine (HZV) [id number] Recomb,Subnit,Adjuvanted [id number] Given 06/06/2018 Prevnar 13 [id number] Given 12/19/2017 Shingrix Zoster (Shingles) Vaccine (HZV) [id number] Recomb,Subnit,Adjuvanted [id number] Given 12/19/2017 Adacel or Boostrix, TDaP [id number] Vital Signs Date Vital Result Comment 06/27/2018 [...] H/L Range Note CBC Auto Diff 06/07/2018 [facility] White Blood 6.9 10^3/uL N 3.5- 10.8 [phone] Count Red Blood Count 2.31 10^6/uL Low [...] Cells % 0.1 Laboratory test finding 06/07/2018 [facility] Lactic Acid 1.2 mmol/L N 0.5-2.0 0 [phone] Comp Metabolic Panel 06/07/2018 [facility] Sodium 138 mmol/L N 135- 145 [phone] Potassium 2.8 mmol/L Low 3.5-5.0 Chloride 93 [...] Egfr 14.0 >60 2 Laboratory test 06/07/2018 [facility] C Reactive 42.00 mg/L High < 8.01 finding [phone] Protein Troponin-I (TnI) 0.07 ng/mL High <0.04 3 Inr/Protime 06/07/2018 [facility] Inr 1.67 High 0.77-1.02 [phone] Laboratory test 06/07/2018 [facility] Partial 34.0 seconds N 26.0- 36.3 finding [phone] Thrombo Time PTT Urinalysis 06/07/2018 [facility] Urine Color Yellow Profile [phone] Urine Appearance Cloudy Urine Specific [place] 1.009 Low 1.010-1.030 Urine pH 9.0 N [...] Present Abnormal Absent Laboratory test finding 06/07/2018 [facility] Blood Culture SEE RESULT BELOW 4 [phone] Urine Culture And 06/07/2018 [facility] Urine Culture SEE RESULT BELOW 5 Sensitivities [phone] Laboratory test finding 06/07/2018 [facility] Acetaminophen < 15 g/ mL 6 [phone] Pediatric Blood Culture SEE RESULT BELOW 7 Rapid Influenza A 06/07/2018 [facility] Influenza A NEGATIVE Negative 8 & B Molecular [phone] Molecular Influenza B Molecular NEGATIVE Negative Laboratory test 06/07/2018 [facility] Rapid Influenza SEE RESULT 9 finding [phone] A B Antigen BELOW Laboratory test 06/06/2018 In House Hemoglobin A1c 5.5 finding Inr/Protime 05/10/2018 [facility] Inr 1.37 High 0.77-8 [phone] Laboratory test 05/10/2018 [facility] Partial Thrombo 33.6 seconds N 26.0-3 finding [phone] Time PTT 6.3 CBC Auto Diff 05/10/2018 [facility] White Blood 7.3 10^3/uL N 3.5-10 [phone] Count .8 Red Blood Count 2.68 10^6/uL [...] Cells % 0 Basic Metabolic Panel 05/10/2018 [facility] Sodium 138 mmol/L N 135- 145 [phone] Potassium 2.9 mmol/L Low 3.5-5.0 Chloride 92 mmol/L Low 101-111 Co2 Carbon Dioxide 36 mmol/L High 22-32 Anion Gap 10 mmol/L N 2-11 Glucose 103 mg/dL High 70-100 Blood Urea Nitrogen 15 mg/dL N 6-24 Creatinine 4.01 mg/dL High 0.67-1.17 BUN/Creatinine Ratio 3.7 Low 8-20 Calcium 9.1 mg/dL N 8.6-10.3 Egfr Non- 15.7 >60 Egfr 19.0 >60 10 Laboratory test 03/29/2018 [facility] Tissue Culture SEE RESULT 12 finding [phone] & Sensitiv BELOW Laboratory test 03/08/2018 In House Culture Throat negative finding Culture Throat Rapid Screen negative Ua Inhouse 03/08/2018 In House Ua Glucose trace Ua Specific [place] 1.005 Ua Blood +2 Ua PH 8.5 Ua Protein +3 Urine Microalbumin 01/16/2018 [facility] Urine Creatinine 114.23 mg/dL Random [phone] Ur Microalbumin (mg/L) > 1500.0 Urine Microalbumin/Creatinine 1313.1 High <31 Comp Metabolic Panel 01/16/2018 [facility] Sodium 140 mmol/L N 135- 145 [phone] Potassium 3.2 mmol/L Low 3.5-5.0 Chloride 93 [...] Egfr 8.6 >60 13 Laboratory test 01/16/2018 [facility] Hemoglobin A1c 5.3 % N 4.0-5.6 14 finding [phone] (Glyco HGB) Urine Culture And 01/16/2018 [facility] Urine Culture SEE RESULT 15 Sensitivities [phone] BELOW Urinalysis Profile 01/16/2018 [facility] Urine Color Yellow [phone] Urine Appearance Cloudy Urine Specific [place] 1.010 N 1.010-1.030 Urine pH 9.0 N [...] Epithelial Cell Present Abnormal Absent Inr/Protime 01/16/2018 [facility] Inr 1.20 High 0.77-1.02 [phone] CBC Auto Diff 01/16/2018 [facility] White Blood 7.9 10^3/uL N 3.5- 10.8 [phone] Count Red Blood Count 2.95 10^6/uL Low [...] Hemoglobin A1c 5.5 finding Laboratory test 07/28/2017 [facility] Troponin-I (TnI) 0.03 ng/mL < 0.04 finding [phone] Inr/Protime 07/28/2017 [facility] Inr 1.20 High 0.77-1. [phone] Laboratory test 07/28/2017 [facility] Lactic Acid 1.9 mmol/L N 0.5- 2.0 16 finding [phone] CBC Auto Diff 07/28/2017 [facility] White Blood Count 8.7 N 3.5-10. [phone] 10^3/uL 8 Red Blood Count 3.68 10^6/uL [...] Blood Cells % 0 Laboratory test 07/28/2017 [facility] B-Type Natriuretic 39 pg/mL 17 finding [phone] Peptide BNP Comp Metabolic 07/28/2017 [facility] Sodium 134 mmol/L Low 139-14 Panel [phone] 5 Potassium 3.2 mmol/L Low 3.5-5.0 Chloride [...] Egfr 14.4 >60 18 Laboratory test 07/28/2017 [facility] Troponin-I (TnI) 0.04 ng/mL High <0.04 19 finding [phone] TSH (Thyroid Stim Horm) 1.44 mcIU/mL N 0.34-5.60 Type & Screen 05/21/2017 [facility] Patient Blood Type A Positive 20 [phone] Antibody Screen NEGATIVE Laboratory test 05/21/2017 [facility] Packed Cells SEE RESULTS 21 finding [phone] BELO <SEE NOTE> Laboratory test 05/07/2017 [facility] Lactic Acid 1.5 mmol/L N 0.5- 2.0 22 finding [phone] Laboratory test 05/01/2017 [facility] Surgical SEE RESULT 23 finding [phone] Interface Order BELOW Laboratory test 05/01/2017 [facility] Clotest SEE RESULT 24 finding [phone] BELOW Urinalysis 02/17/2017 [facility] Urine Color Straw Profile [phone] Urine Appearance Clear Urine Specific [place] 1.004 Low 1.010-1.030 Urine pH 9.0 N [...] Urine Bacteria Absent Absent Laboratory test 02/17/2017 [facility] Wound Culture/Sensi SEE RESULT 25 finding [phone] BELOW MRSA/S. aureus Ssti PCR SEE RESULT BELOW 26 Laboratory test 02/17/2017 [facility] Lactic Acid 0.9 mmol/L N 0.5- 2.0 27 finding [phone] Laboratory test 02/17/2017 [facility] Erythrocyte Sed 120 mm/Hr High 0-20 finding [phone] Rate Blood Culture SEE RESULT BELOW 28 CBC Auto Diff 02/17/2017 [facility] White Blood 11.8 10^3/uL High 3.5 -10.8 [phone] Count Red Blood Count 2.45 10^6/uL Low [...] Cells % 0 Laboratory test finding 02/17/2017 [facility] Uric Acid 3.1 mg/dL Low 4.4-7.6 [phone] C Reactive Protein 12.71 mg/L High < 5.00 29 Comp Metabolic Panel 02/17/2017 [facility] Sodium 135 mmol/L N 133- 145 [phone] Potassium 4.9 mmol/L N 3.5-5.0 Chloride 96 [...] Egfr 17.2 >60 30 Lipid Profile 02/15/2017 [facility] Triglycerides 121 mg/dL 31 (Trig/Chol/HDL) [phone] Cholesterol 126 mg/dL 32 HDL Cholesterol 43.4 mg/dL 33 LDL Cholesterol 58 mg/dL 34 Comp Metabolic Panel 02/15/2017 [facility] Sodium 138 mmol/L N 133- 145 [phone] Potassium 4.7 mmol/L N 3.5-5.0 Chloride 95 [...] 25.3 >60 35 CBC Auto Diff 02/15/2017 [facility] White Blood 11.5 10^3/uL High 3.5 -10.8 [phone] Count Red Blood Count 2.66 10^6/uL Low [...] Blood Cells % 0 Laboratory test 02/15/2017 [facility] TSH (Thyroid 3.28 mcIU/mL N 0.34-5.60 finding [phone] Stim Horm) Laboratory test 02/13/2017 In House Hemoglobin A1c 5.7 finding CBC Auto Diff 02/06/2017 [facility] White Blood 8.1 10^3/uL N 3.5- 10.8 [phone] Count Red Blood Count 2.48 10^6/uL Low [...] Cells % 0 Comp Metabolic Panel 02/06/2017 [facility] Sodium 137 mmol/L N 133- 145 [phone] Potassium 4.3 mmol/L N 3.5-5.0 Chloride 97 [...] 17.9 >60 36 Laboratory test finding 02/06/2017 [facility] Lipase 28 U/L N 11.0- 82.0 [phone] 1 [facility] Severe Sepsis and Septic Shock Management Bundle [...] (or dialysis) 3 Result TnIDx:0.07 Called to [id number] at: 16:26:39 by:[id number] Read back by: [id number] Troponin-I testing on Plasma Separator Tubes (PST) has a known false positive rate of 0.20-0.40%. All positive troponins reflex immediate secondary confirmatory testing. 4 SEE RESULT BELOW Name: KATY SINGLETARY : [address]: Philly Miller MD Acct: [id number] Unit: [id number] AGE: 53 Location: [place] [address] Re06/07/18 SEX: M Status: ADM IN SPEC: [id number] ANGELES: 06/07/[address] [facility] [address]: Ellis Elise MD REQ: [id number] RECD: 06/07/18 STATUS: ROM OZUNA DR[facility] _ SOURCE: BLOOD,VENO SPDESC: ORDERED: Blood Cult Procedure Result Reported Site Aerobic Culture Bottle Final 06/12/18- 1506 ML No Growth Day 5 Anaerobic Culture Bottle Final 06/12/18- 1506 ML No Growth Day 5 * ML - Main Lab . END OF REPORT DEPARTMENT OF PATHOLOGY, [address] [place] [address] Juan Deleon M.D. Director [facility] # [id number] 5 SEE RESULT BELOW Name: KATY SINGLETARY : [address]: Jamal Mcghee MD Acct: [id number] Unit: [id number] AGE: 53 Location: [place] [address] Re06/07/18 SEX: M Status: ADM IN SPEC: [id number] ANGELES: 06/07/18-[address]: Ellis Elise MD REQ: [id number] RECD: 06/07/18 STATUS: ROM OZUNA DR: Lety JARVIS _ SOURCE: URINE SPDESC: ORDERED: Urine Culture Procedure Result Reported Site Urine Culture Final 06/09/18- 0916 ML No growth of clinically significant organisms * ML - Main Lab . END OF REPORT DEPARTMENT OF PATHOLOGY, [address] [place] [address] Juan Deleon M.D. Director [facility] # [id number] 6 Therapeutic concentration: <50 ug/mL Toxic concentration: >120 ug/mL 7 SEE RESULT BELOW Name: YEISONKATY Donnell : [address]: Philly Miller MD Acct: [id number] Unit: [id number] AGE: 53 Location: [place] [address] Re06/07/18 SEX: M Status: ADM IN SPEC: [id number] ANGELES: 06/07/[address] [facility] [address]: Ellis Elise MD REQ: [id number] RECD: 06/07/18 STATUS: ROM OZUNA DR: Lety Santamaria [facility] _ SOURCE: BLOOD,VENO SPDESC: ORDERED: Blood Cult, Pediatric Bottl Procedure Result Reported Site Pediatric Blood Culture Final 06/12/181510 ML No Growth Day 5 * ML - Main Lab . END OF REPORT DEPARTMENT OF PATHOLOGY, [address] [place] [address] Juan Deleon M.D. Director [facility] # [id number] 8 Police Surgeon: [id number] 9 SEE RESULT BELOW Name: KATY SINGLETARY Donnell : [address]: Ellis Elise MD Acct: [id number] Unit: [id number] AGE: 53 Location: ED Re06/07/18 SEX: M Status: REG ER SPEC: [id number] ANGELES: 06/07/18-[address] [facility] [address]: Ellis Elise MD REQ: [id number] RECD: 06/07/18150 STATUS: ROM OZUNA DR: Lety JARVIS _ SOURCE: NASAL SPDESC: ORDERED: Campbell Fontenot B Request Procedure Result Reported Site Rapid Influenza A B Request Final 06/07/18- 1529 ML Specimen received for Influenza A/B Molecular testing * ML - Main Lab . END OF REPORT DEPARTMENT OF PATHOLOGY, [address] [place] [address] Juan Deleon M.D. Director [facility] # [id number] 10 Because ethnic data is not always [...] [address]: Amparo Landis NP Acct: [id number] Unit: [id number] AGE: 53 Location: WOUND Re03/29/18 SEX: M Status: REG REF SPEC: [id number] ANGELES: 03/29/18-[address]: Amparo Landis NP REQ: [id number] RECD: 03/29/18 STATUS: ROM OZUNA DR: [facility] _ SOURCE: TISSUE SPDESC:RIGHT ORDERED: Tissue Cult/GS [...] CONTINUED ON NEXT PAGE DEPARTMENT OF PATHOLOGY, [address] [place] [address] Juan Deleon M.D. Director [facility] # [id number] Patient: KATY SINGLETARY [id number] (Continued) Specimen: [id number] Collected: 03/29/18-141 Received: 03/29/18-272 (Continued) Procedure Result Reported Site Tissue Culture [...] . END OF REPORT DEPARTMENT OF PATHOLOGY, [address] [place] [address] Juan Deleon M.D. Director [facility] # [id number] 13 Because ethnic data is not always [...] in selective patients <6.0%. Please refer to [employer] diabetic care guidelines for further information. 15 SEE RESULT BELOW Name: KATY SINGLETARY : [address]: Lety JARVIS Acct: [id number] Unit: [id number] AGE: 52 Location: [facility] Re01/16/18 SEX: M Status: REG REF SPEC: [id number] ANGELES: 01/16/[address]: Lety JARVIS REQ: [id number] RECD: 01/16/18 STATUS: ROM CONTRERAS DR: Scott Boyd MD _ SOURCE: URINE SPDESC: ORDERED: Urine Culture Procedure Result Reported Site Urine Culture Final 01/17/18- 1525 ML Organism 1 STREP GROUP B Rhodes Count 1-10,000 (Few) CFU/ML Susceptibility testing of penicillins and other B-lactams approved by FDA for treatment of Streptococcus pyogenes (Group A Strep) and Streptococcus agalactiae (Group B Strep) is not necessary for clinical purposes and need not be done routinely, since as with vancomycin, resistant strains have not been recognized. (CLSI L249-K76;p.66) Positive isolates will be saved for one week. Please call the Microbiology Laboratory if further susceptibility testing is needed. * ML - Main Lab . END OF REPORT DEPARTMENT OF PATHOLOGY, [address] [place] [address] Juan Deleon M.D. Director [facility] # [id number] 16 [facility] Severe Sepsis and Septic Shock Management Bundle [...] (or dialysis) 19 Result TnIDx:0.04 Called to [id number] at: 17:43:09 by:[id number] Read back by: [id number] BLOOD WORK 21 SEE RESULTS BELOW [id number] AP PC TRANSFUSED 05/21/172000 [facility] Severe Sepsis and Septic Shock Management Bundle Measure requires all lactic acids initially measuring >2.0 mmol/L be repeated. 23 SEE RESULT BELOW Name: KATY SINGLETARY : [address]: Garry Javed MD Acct: [id number] Unit: [id number] AGE: 52 Location: [facility] Re05/01/17 SEX: M Status: DEP REF SPEC: [id number] ANGELES: 05/01/17- SUBM DR: Garry Javed MD REQ: [id number] RECD: 05/01/17 STATUS: CINTIA OZUNA DR: [facility] Katy Johnson MD _ ORDERED: LEVEL 4/3, IMMUNO-FIRST, SPEC ST NON-ORG Addendum: An immunohistochemical stain for Helicobacter pylori-like organisms was performed with appropriate controls on part 1 and is negative. Addendum Signed (signature on file) Juan Deleon MD 1026 FINAL DIAGNOSIS 1. Stomach, [...] performed at Main Lab DEPARTMENT OF PATHOLOGY, [address] [place] [address] Juan Deleon M.D. Director [facility] # [id number] RUN DATE: 05/04/17 [facility] LAB LIVE PAGE 2 Patient: KATY SINGLETARY [id number] (Continued) CLINICAL HISTORY (Continued) CLINICAL HISTORY Anemia, [...] performed at Main Lab DEPARTMENT OF PATHOLOGY, [address] [place] [address] Juan Deleon M.D. Director [facility] # [id number] 24 SEE RESULT BELOW Name: YEISONKATY : [address]: Garry Javed MD Acct: [id number] Unit: [id number] AGE: 52 Location: ENDO Re05/01/17 SEX: M Status: DEP REF SPEC: [id number] ANGELES: 05/01/17-[address] [facility] [address]: Garry Javed MD REQ: [id number] RECD: 05/03/17-2533 STATUS: ROM OZUNA DR: Lety JARVIS _ SOURCE: GAS ANTRUM SPDESC: ORDERED: Clotest Procedure Result Reported Site Clotest Final 05/04/17- 930 ML Clotest Negative * ML - MAIN LAB ([facility]) . END OF REPORT * ML=Testing performed at Main Lab DEPARTMENT OF PATHOLOGY, [address] [place] [address] Juan Deleon M.D. Director [facility] # [id number] 25 SEE RESULT BELOW Name: KATY SINGLETARY : [address]: Fermín Oscar MD Acct: [id number] Unit: [id number] AGE: 52 Location: ED Re02/17/17 SEX: M Status: REG ER SPEC: [id number] ANGELES: 02/17/[address]: Fermín Oscar MD REQ: [id number] RECD: 02/17/17 STATUS: RES SULMA DR: Lety Santamaria [facility] _ SOURCE: FOOT,LEFT SPDES: ORDERED: Culture Stain Procedure Result Reported Site Wound/Misc Gram Stain Final 02/17/17- 1902 ML 1+ Epithelial Cells 1+ Neutrophils 4+ Gram Positive Cocci in Clusters, resembling Staph 3+ Gram Negative Bacilli Wound/Misc Culture PENDING * ML - MAIN LAB ([facility]) . END OF REPORT * ML=Testing performed at Main Lab DEPARTMENT OF PATHOLOGY, [address] [place] [address] Juan Deleon M.D. Director [facility] # [id number] 26 SEE RESULT BELOW Name: KATY SINGLETARY : [address]: Philly Miller MD Acct: [id number] Unit: [id number] AGE: 52 Location: [place] [address] Re02/17/17 SEX: M Status: ADM IN SPEC: [id number] ANGELES: 02/17/[address] [facility] [address]: Fermín Oscar MD REQ: [id number] RECD: 02/17/17 STATUS: ROM OZUNA DR: Lety [...] performed at Main Lab DEPARTMENT OF PATHOLOGY, [address] [place] [address] Juan Deleon M.D. Director [facility] # [id number] Patient: KATY SINGLETARY [id number] (Continued) Specimen: [id number] Collected: 02/17/17 Received: 02/17/17 (Continued) Procedure Result Reported Site Wound/Misc Culture Final (continued) 02/20/17- 1026 1. ENTEROCOCCUS FAECALIS (continued) M.I.C. RX --------- ------ * Streptomycin High Level S Tetracycline >=16 R Tigecycline <=0.12 S Vancomycin 1 S Imipenem-Deduced S * Ampicillin/Sulbactam-Deduced S * These antibiotics are not available in the [facility] Formulary Contact the Microbiology Department for any additional antibiotic reporting. * ML - MAIN LAB ([facility]) . END OF REPORT * ML=Testing performed at Main Lab DEPARTMENT OF PATHOLOGY, [address] [place] [address] Juan Deleon M.D. Director [facility] # [id number] 27 [facility] Severe Sepsis and Septic Shock Management Bundle Measure requires all lactic acids initially measuring >2.0 mmol/L be repeated. 28 SEE RESULT BELOW Name: KATY SINGLETARY : [address]: Philly Miller MD Acct: [id number] Unit: [id number] AGE: 52 Location: [place] [address] Re02/17/17 SEX: M Status: ADM IN SPEC: [id number] ANGELES: 02/17/17-[address] [facility] [address]: Fermín Oscar MD REQ: [id number] RECD: 02/17/17 STATUS: RES [facility] DR: Lety Santamaria [facility] _ SOURCE: BLOOD,VENO SPDESC: ORDERED: Blood Cult Procedure Result Reported Site Aerobic Culture Bottle Preliminary 02/18/17- 1809 ML No Growth Day 1 Anaerobic Culture Bottle Preliminary 02/18/17- 1807 ML No Growth Day 1 * ML - MAIN LAB ([facility]) . END OF REPORT * ML=Testing performed at Main Lab DEPARTMENT OF PATHOLOGY, [address] [place] [address] Juan Deleon M.D. Director [facility] # [id number] 29 Acute inflammation: >10.00 30 Because ethnic [...] dialysis) Procedures Date Code Description Status 01/16/2018 23912 Brief Emotional/Behav Assessment W/ Scoring Doc Per Completed Standard Inst 01/02/2018 854311072 Diabetic Retinal Eye Exam Completed 05/01/2017 [id number] Colonoscopy Completed 03/12/2017 [id number] Diabetic Foot Exam Completed Encounters Type Date [...]
--- OUTSIDE RECORDS SUMMARY | 2018-07-01 09:54 | XMS REPORT | Continuity of Care Document ---
:1965 External Reference #:[id number] Author Name Sofia Stephensecca Care Team Providers Name Role Phone Roman Villa MD Primary Care Physician Unavailable Payers Date Identification Numbers Payment Provider Subscriber Effective: Policy Number: [id number] [facility] Katy Jacobo Marquette 2010 PayID: [id number] [address] [address] [place] [address] Policy Number: [id number] Medicare Katy Jacobo Marquette PayID: [id number] [address] [place] [address] Advance Directives Description No Information Available Problems Date Description Provider Status Onset: 02/03/2015 Chronic osteomyelitis of ankle Adrián Louis M.D. Active and/or foot Onset: 03/30/2017 Mitral valve disorder William Chavez M.D., Active FACC, ELIANA Onset: 03/30/2017 Essential hypertension William Chavez M.D., Active FACC, FASNC Family History Date Family Member(s) Observation Comments General Father-[place] General mother- due to liver cancer. General paternal wkjrdmprlmx-nxmhxkgl-URZ General Maternal grandfather-heart disease- due to General - 12/2016-[place] Social History Type Date Description Comments Sex Unknown Marital Status Lives With Patient in december-2016 Lives With Alone Occupation Disabled in 2017 ETOH Use Occasionally consumes alcohol Tobacco Use Start: Unknown Patient has never smoked Recreational Drug Use Denies Drug Use Smoking Status Reviewed: 05/31/18 Patient has never smoked Exercise Type/Frequency Does not exercise Allergies, Adverse Reactions, Alerts Date Description Reaction Status Severity Comments 02/04/2013 NKDA Active 03/30/2017 Grass Active Medications Medication Date Status Form Strength Qnty SIG Indications Ordering Provider Metronidazole 06/04/19 Active Tablets 500mg 30tab 1 tab by Ector 19 s mouth D. three [place], times per M.D. day Doxycycline 05/18/[address] 100mg 60tab 1 tab by Michelle.271 Ector Hyclate 19 s mouth D. twice a [place], day with M.D. food (on hold as of 06/04/18) Amlodipine Active Tablets 10mg 30tab 1 po qd Unknown Besylate 00 s Simvastatin Active Tablets 10mg take 1 Unknown 00 tablet by mouth at bedtime Acetaminophen Active Tablets 325mg 2 tabs 3x Unknown 00 a day as needed Ranitidine HCL Active Capsules 300mg once daily Linda Gomez M.D. Metoprolol Active Tablets 25mg 1 tab Patricia, Tartrate 00 daily Kathy Peterson Omeprazole Active Capsules DR 20mg Take 1 Unknown 00 Capsule By Mouth Two Times Daily Renvela Active Tablets 800mg twice Unknown 00 daily Afua-Dennis Active Tablets 1 tab Unknown 00 daily Sensipar Active Tablets 90mg 1 tab Unknown 00 daily Zoloft Active Tablets 50mg 1 by mouth Unknown 00 every day Aspirin Active Tablets DR 81mg 1 by mouth Unknown 00 every day Amoxicillin/Cl 05/18/19 Hx Tablets 500-125mg 42tab 1 tab by Michelle.271 Ector avulanate 19 - s mouth DJoey Potassium 06/04/19 daily Rachel 19 Kathy [place] 04/06/19 Hx Tablets 5-325mg 20tab 1 tab by Adrián 18 - s mouth q6 Heriberto, 05/25/19 hours as Kathy 18 needed pain [place] 02/28/20 Hx Tablets 5-325mg 20tab 1 tab by Boom 17 - s mouth q6 F 03/29/19 hours as Tobin 18 needed MD pacheco Bactrim DS 04/15/19 Hx Tablets 800-160mg 40tab 1 by mouth [id number] Adrián 16 - s twice a Heriberto, 07/26/19 day M.D. 16 Allopurinol Hx Tablets 100mg 30tab 2 po qd Unknown 00 - s 03/29/19 18 Atorvastatin Hx Tablets 80mg 1 po qd Unknown Calcium 00 - 03/29/19 18 Lantus Hx Solution 100Unit/M 6Vial 48 units Unknown 00 - L s sq daily 03/29/19 18 Metronidazole Hx Tablets 500mg 14tab 1 po bid Unknown 00 - s 03/18/19 14 Levofloxacin Hx Tablets 750mg 14tab 1 tab by Unknown - s mouth 03/18/19 every 24 14 hours Percocet Hx Tablets 5-325mg 60tab 1-2 po Unknown - s q4-6h prn 01/11/20 pain 15 Gabapentin Hx Capsules 100mg 1 po qhs Unknown - to start 08/09/19 and july 25 increase as tolerated to 2 po qhs then 1 po qam and 2 po hs, gradually up to 3 tid prn pain Sulfamethoxazo Hx Suspension 200-40mg/ 20ml every Unknown le-Trimethopri 00 - 5ML 12 hours m 01/07/20 for 7 days 15 Sulfamethoxazo Hx Tablets 800-160mg 1 tab by Unknown le/Trimethopri 00 - mouth 2x m DS 01/11/20 per day 15 for 7 days Cephalexin Hx Capsules 500mg 1 by mouth Unknown 00 - twice a 03/29/19 day for 10 18 days. Sulfamethoxazo Hx Tablets 800-160mg 1 by mouth Unknown le/Trimethopri 00 - twice a m DS 03/29/19 day for 10 18 days Sevelamer Hx Tablets 800mg 2 tabs po Unknown Carbonate 00 - three Unknown times per day with meals. Colace Hx Capsules 100mg 1 tab by Unknown 00 - mouth 06/05/19 daily 19 Aspirin Hx Tablets 81mg 1 by mouth Unknown 00 - every day 03/27/19 18 Amoxicillin/Cl Hx Tablets 500-125mg 1 by mouth Unknown avulanate 00 - Daily has Potassium 04/27/19 21 days 18 left as of 03/30/17 Oxycodone HCL Hx Tablets 5mg Patricia, 00 - Nicholas, Unknown M.D. Gabapentin Hx Capsules 100mg Patricia, 00 - Nicholas, Unknown M.D. Senna Hx Tablets 8.6mg 2 tabs by Unknown 00 - mouth 1-2 06/05/19 times 19 daily as needed Doxycycline Hx Capsules 100mg Take 1 Unknown Hyclate 00 - Capsule By 05/18/19 Mouth 19 Every Day Immunizations Description No Information Available Vital Signs Date Vital Result Comment 05/31/2018 11:00am Height 71 inches 5'11" Weight [...] Result H/L Range Note Laboratory test 06/04/2018 [facility] C Difficile SEE RESULT [address] [place] [address] [phone] Inr/Protime 05/10/2018 [facility] Inr 1.37 High 0.77-1.[address] [place] [address] [phone] Laboratory test 05/10/2018 [facility] Partial 33.6 seconds N 26.0-36.[address] [place] [address] PTT [phone] CBC Auto Diff 05/10/2018 [facility] White Blood 7.3 10^3/uL N 3.5-10.[address] [place] [address] [phone] Red Blood Count 2.68 10^6/uL Low 4.00-5.40 [...] Cells % 0 Basic Metabolic Panel 05/10/2018 [facility] Sodium 138 mmol/L N 135-[address] [place] [address] [phone] Potassium 2.9 mmol/L Low 3.5-5.0 Chloride 92 mmol/L Low 101-111 Co2 Carbon Dioxide 36 mmol/L High 22-32 Anion Gap 10 mmol/L N 2-11 Glucose 103 mg/dL High 70-100 Blood Urea Nitrogen 15 mg/dL N 6-24 Creatinine 4.01 mg/dL High 0.67-1.17 BUN/Creatinine Ratio 3.7 Low 8-20 Calcium 9.1 mg/dL N 8.6-10.3 Egfr Non- 15.7 >60 Egfr 19.0 >60 2 Laboratory test 03/29/2018 [facility] Tissue Culture SEE RESULT 3, [address] & [place] [address] [phone] Basic Metabolic 01/09/2018 [facility] Sodium 141 mmol/L N 135- [address] [place] [address] [phone] Potassium 3.6 mmol/L N 3.5-5.0 Chloride 94 mmol/L Low 101-111 Co2 Carbon Dioxide 33 mmol/L High 22-32 Anion Gap 14 mmol/L High 2-11 Glucose 104 mg/dL High 70-100 Blood Urea Nitrogen 37 mg/dL High 6-24 Creatinine 7.57 mg/dL High 0.67-1.17 BUN/Creatinine Ratio 4.9 Low 8-20 Calcium 8.4 mg/dL Low 8.6-10.3 Egfr Non- 7.6 >60 Egfr 9.1 >60 5 Laboratory test 01/09/2018 [facility] Erythrocyte Sed 79 mm/Hr High 0-[address] [place] [address] [phone] Urinalysis 03/31/2017 [facility] Urine Color Yellow Profile [address] [place] [address] [phone] Urine Appearance Clear Urine Specific [place] 1.014 N 1.010-1.030 Urine pH 8.0 N [...] Cell Present Abnormal Absent CBC Auto 03/29/2017 [facility] White Blood 12.6 10^3/uL High 3.5-10.[address] [place] [address] [phone] Red Blood Count 2.22 10^6/uL Low 4.0-5.4 [...] Cells % 0.1 Basic Metabolic Panel 03/29/2017 [facility] Sodium 134 mmol/L N 133-145 [address] [place] [address] [phone] Potassium 4.8 mmol/L N 3.5-5.0 Chloride 93 mmol/L Low 101-111 Co2 Carbon Dioxide 31 mmol/L N 22-32 Anion Gap 10 mmol/L N 2-11 Glucose 93 mg/dL N 70-100 Blood Urea Nitrogen 24 mg/dL N 6-24 Creatinine 3.98 mg/dL High 0.67-1.17 BUN/Creatinine Ratio 6.0 Low 8-20 Calcium 8.7 mg/dL N 8.6-10.3 Egfr Non- 15.9 >60 Egfr 20.4 >60 6 Inr/Protime 03/29/2017 [facility] Inr 1.21 High 0.77-1.[address] [place] [address] [phone] Laboratory test 03/29/2017 [facility] Partial 35.9 N 26.0- 36.[address] [place] [address] PTT [phone] Laboratory test 08/03/2015 [facility] C Reactive < 1.00 mg/L N < 5.[address] [place] [address] [phone] Laboratory test 07/06/2015 [facility] C Reactive < 1.00 mg/L N < 5.00 [address] [place] [address] [phone] CBC Auto Diff 07/06/2015 [facility] White Blood 7.4 10^3/uL N 3.5-10.[address] [place] [address] [phone] Red Blood Count 3.30 10^6/uL Low 4.0-5.4 [...] Cells % 0.1 N Laboratory test 07/06/2015 [facility] Erythrocyte Sed 81 mm/Hr High 0-[address] [place] [address] [phone] Laboratory test 06/08/2015 [facility] Hemoglobin A1c 7.6 % High Less [address] (Glyco HGB) than 6.0 [place] [address] [phone] Laboratory test 12/24/2014 [facility] Uric Acid 5.8 mg/dL N 4.4-7.[address] [place] [address] [phone] Basic Metabolic 12/24/2014 [facility] Sodium 138 N 133-[address] mmol/[place] [address] [phone] Potassium 5.7 mmol/L High 3.5-5.0 Chloride 111 mmol/L N 101-111 Co2 Carbon Dioxide 18 mmol/L Low 22-32 Anion Gap 9 mmol/L N 2-11 Glucose 157 mg/dL High 70-100 Blood Urea Nitrogen 34 mg/dL High 6-24 Creatinine 3.08 mg/dL High 0.67-1.17 BUN/Creatinine Ratio 11.0 N 8-20 Calcium 8.3 mg/dL Low 8.6-10.3 Egfr Non- 21.6 N >60 Egfr 27.8 N >60 10 Laboratory test 02/25/2013 [facility] C Reactive 0.6 mg/dL High Less than finding [address] Protein 0.5 [place], [place] [id number] [phone] Comp Metabolic 02/25/2013 [facility] Sodium 132 mmol/L Low 133 -[address] [place] [address] [phone] Potassium 4.0 mmol/L 3.5-5.0 Chloride 104 mmol/L [...] >60 Egfr 69.3 >60 11 Wound 02/19/2013 [facility] Wound/Misc (SEE NOTE) 12 Culture/Sensi [address] [place] [address] Stain [phone] Comp Metabolic 02/11/2013 [facility] Sodium 140 mmol/L 133-[address] [place] [address] [phone] Potassium 4.1 mmol/L 3.5-5.0 Chloride 106 mmol/L [...] Egfr 51.8 >60 13 Laboratory test 02/11/2013 [facility] C Reactive 0.6 mg/dL High Less than finding [address] Protein 0.5 [place] [address] [phone] Basic Metabolic 01/30/2013 [facility] Sodium 134 mmol/L 133- [address] [place] [address] [phone] Potassium 4.8 mmol/L 3.5-5.0 Chloride 102 mmol/L 101-111 Co2 Carbon Dioxide 24.0 mmol/L 22-32 Anion Gap 8.0 mmol/L 2-11 Glucose 261 mg/dL High 70-100 Blood Urea Nitrogen 29 mg/dL High 6-24 Creatinine 2.10 mg/dL High 0.50-1.40 BUN/Creatinine Ratio 13.8 8-20 Calcium 9.0 mg/dL 8.1-9.9 Egfr Non- 33.7 >60 Egfr 43.4 >60 14 CBC Auto Diff 01/30/2013 [facility] White Blood 10.3 10^3/uL 4.8-10.[address] [place] [address] [phone] Red Blood Count 3.46 10^6/uL Low 4.0-5.4 [...] Blood Cells % 0.1 Laboratory test 01/13/2013 [facility] Glucose 399 mg/dL High 70-100 finding [address] [place] [address] [phone] 1 SEE RESULT BELOW Name: KATY SINGLETARY : [address]: Ector Mcwilliams MD Acct: [id number] Unit: [id number] AGE: 53 Location: [facility] Re06/03/18 SEX: M Status: REG REF SPEC: [id number] ANGELES: 06/04/18-1005 [facility] DR: Ector Mcwilliams MD REQ: [id number] RECD: 06/04/18 STATUS: COMP _ SOURCE: STOOL SPDESC: ORDERED: C. diff PCR, Stool Culture COMMENTS: [id number] ADDED 06/05/18 TO [id number] SPECIMEN IN CUP YELLOW TOP C S [...] CONTINUED ON NEXT PAGE DEPARTMENT OF PATHOLOGY, [address] [place] [address] Juan Deleon M.D. Director MIKE # [id number] Patient: KATY SINGLETARY [id number] (Continued) Specimen: [id number] Collected: 06/04/18 Received: 06/04/18 (Continued) Procedure Result Reported Site C. difficile PCR Final (continued) 06/04/18- 1256 * - [facility] . END OF REPORT DEPARTMENT OF PATHOLOGY, [address] [place] [address] Juan Deleon M.D. Director [facility] # [id number] 2 Because ethnic data is not always [...] SINGLETARY : [address]: Amparo Landis LOOM BLOWER Acct: [id number] Unit: [id number] AGE: 53 Location: WOUND Re03/29/18 SEX: M Status: REG REF SPEC: [id number] ANGELES: 03/29/18141 [facility] DR: Amparo Landis LOOM BLOWER REQ: [id number] RECD: 03/29/18 STATUS: ROM OZUNA DR: Lety Santamaria [facility] _ SOURCE: TISSUE SPDESC:RIGHT ORDERED: Tissue Cult/GS [...] CONTINUED ON NEXT PAGE DEPARTMENT OF PATHOLOGY, [address] [place] [address] Juan Deleon M.D. Director SEFERINOFRANCA # [id number] Patient: KATY SINGLETARY [id number] (Continued) Specimen: [id number] Collected: 03/29/18 Received: 03/29/18131 (Continued) Procedure Result Reported Site Tissue Culture [...] . END OF REPORT DEPARTMENT OF PATHOLOGY, [address] [place] [address] Juan Deleon M.D. Director [facility] # [id number] 5 Because ethnic data is not always [...] and in selective patients <6.0%.Please refer to [place] [employer] Diabetic care guidelines for further [...] <15 (or dialysis) 12 RUN DATE: 02/21/13 [facility] LAB LIVE PAGE 1 RUN TIME: [address] [place] [address] Specimen Inquiry Name: YEISONKATY Donnell : [address]: Mono Marcelino Acct: [id number] Unit: [id number] AGE: 48 Location: WOUND Re02/21/13 SEX: M Status: REG RCR SPEC: [id number] ANGELES: 02/19/[address]: Mono Marcelino DPM REQ: [id number] RECD: 02/19/133 STATUS: ROM OZUNA DR: Ector Glasgow MD _ SOURCE: TOE SPDESC:RIGHT ORDERED: Culture Stain Procedure Result Verified Site Wound/Misc Gram Stain Final 02/19/13- 1422 ML No Polys Observed No Organisms Seen Wound/Misc Culture Final 02/21/13- 1112 ML Organism 1 NORMAL KEVIN Quantity 1+ END OF REPORT * ML=Testing performed at Main Lab DEPARTMENT OF PATHOLOGY, [address] [place] [address] Juan Deleon M.D. Director [facility] Permit #[id number] 13 Because ethnic data is not always [...] dialysis) Procedures Date Code Description Status 05/31/2018 32958 Removal Devitalization Tissue Wound Less Than Equal 20 Completed Square CM 05/17/2018 34281 I&D Of Abscess Complicated Completed 05/10/2018 32794 Moderate Sedation Services; Same Phys Each Additional 15 Completed Mins 05/10/2018 14725 Moderate Sedation Services; Same Phys Intl 15 Mins; PT >=5 Completed Years 05/10/2018 83554 Ultrasound Guidance For Vascular Access Completed 05/10/2018 15257 Dialysis Circuit W/ Transluminal Balloon Angioplasty, Completed Peripheral 04/12/2018 13632 Chemical Cautery Granulation Tissue Completed 04/05/2018 43662 Apply Total Contact Leg Cast Completed 03/29/2018 82166 Debridement Skin,& sq Tissue Completed 03/22/2018 92150 Apply Total Contact Leg Cast Completed 03/15/2018 43693 Removal Devitalization Tissue Wound Less Than Equal 20 Completed Square CM 03/01/2018 81131 Apply Total Contact Leg Cast Completed 02/21/2018 48167 Removal Devitalization Tissue Wound Less Than Equal 20 Completed Square CM 02/15/2018 99548 Apply Total Contact Leg Cast Completed 02/08/2018 73483 Apply Total Contact Leg Cast Completed 01/18/2018 60125 Apply Total Contact Leg Cast Completed 01/11/2018 33883 Apply Total Contact Leg Cast Completed 01/04/2018 31046 Debridement Skin,& sq Tissue Completed 12/03/2017 42063 Removal Of Tunneled Central Venous Cath W/O Subcutaneous Completed Port/BILLING CLINICIAN 05/10/2017 10712 Amputation Foot Midtarsal Completed 05/10/2017 27386 Amputation Foot Midtarsal Completed 05/10/2017 55865 Transfer Tendon Leg Or Ankle Superficial Completed 05/10/2017 58208 Transfer Tendon Leg Or Ankle Superficial Completed 05/10/2017 14253 Tenotomy Achilles Tendon General Anesthesia Completed 04/23/2017 52126 EKG, Interpretation Only Completed 03/30/2017 56752 EKG Tracing & Interpretation Completed 03/28/2017 26707 Rad Exam; Foot Comp Completed 03/02/2017 81417 Short Leg Cast Completed 02/19/2017 23967 Amputation Foot Transmetatarsal Completed 02/19/2017 27769 Amputation Foot Transmetatarsal Completed 01/31/2017 28168 Treadmill Interp/Report Only Completed 01/31/2017 33025 Stress Test Supervsn W/Out I/R Completed 01/30/2017 74997 ECHO Transthorasic Realtime 2D W Doppler & Color Flow Hosp Completed 01/23/2017 31772 Fluoroscopic Guidance For Cent Completed 01/23/2017 02685 Insertion Tunneled Cent Venous Cathr W/O Subcut Port/Pump Completed 5Yrs> 01/21/2017 38933 EKG, Interpretation Only Completed 01/19/2017 56223 EKG, Interpretation Only Completed 01/19/2017 38113 Insert Non-Tunneled Venous Catether Completed 08/19/2015 80062 Apply Total Contact Leg Cast Completed 08/10/2015 80393 Removal Devitalization Tissue Wound Less Than Equal 20 Completed Square CM 08/03/2015 75043 Removal Devitalization Tissue Wound Less Than Equal 20 Completed Square CM 07/27/2015 96790 Removal Devitalization Tissue Wound Less Than Equal 20 Completed Square CM 07/20/2015 19318 Removal Devitalization Tissue Wound Less Than Equal 20 Completed Square CM 07/13/2015 89445 Removal Devitalization Tissue Wound Less Than Equal 20 Completed Square CM 07/06/2015 39373 Removal Devitalization Tissue Wound Less Than Equal 20 Completed Square CM 06/29/2015 32755 Removal Devitalization Tissue Wound Less Than Equal 20 Completed Square CM 06/22/2015 41012 Removal Devitalization Tissue Wound Less Than Equal 20 Completed Square CM 06/15/2015 91865 Removal Devitalization Tissue Wound Less Than Equal 20 Completed Square CM 06/08/2015 22170 Removal Devitalization Tissue Wound Less Than Equal 20 Completed Square CM 06/01/2015 44000 Removal Devitalization Tissue Wound Less Than Equal 20 Completed Square CM 05/25/2015 90280 Removal Devitalization Tissue Wound Less Than Equal 20 Completed Square CM 05/18/2015 03998 Removal Devitalization Tissue Wound Less Than Equal 20 Completed Square CM 05/11/2015 52926 Removal Devitalization Tissue Wound Less Than Equal 20 Completed Square CM 05/04/2015 62299 Removal Devitalization Tissue Wound Less Than Equal 20 Completed Square 12/29/2014 91932 Short Leg Cast Completed 12/17/2014 69799 Amputation Foot Transmetatarsal Completed 12/17/2014 79759 Amputation Foot Transmetatarsal Completed 01/14/2013 87366 EKG, Interpretation Only Completed Encounters Type Date Location Provider Dx Diagnosis Office Visit 05/31/2018 [facility] Ector Spencer M86.271 Subacute 10:50a Infectious Kathy Mcwilliams osteomyelitis, Diseases right ankle and foot E11.40 Type 2 diabetes mellitus with diabetic neuropathy, unsp R19.7 Diarrhea, unspecified T36.0x5A Adverse effect of penicillins, initial encounter Office Visit 05/24/2018 10:45a [facility] Fitz Leon, L89.893 Pressure ulcer Center [facility] , FACS of other site, stage 3 E11.621 Type 2 diabetes mellitus with foot ulcer M86.271 Subacute osteomyelitis, right ankle and foot I73.9 Peripheral vascular disease, unspecified N18.6 End stage renal disease R09.89 Oth symptoms and signs involving the circ and resp systems M21.6x1 Other acquired deformities of right foot Office Visit 05/17/2018 [facility] Ector Spencer M86.271 Subacute 10:50a For Gregorio Mcwilliams M.D. osteomyelitis, Diseases right ankle and foot E11.621 Type 2 diabetes mellitus with foot ulcer N18.6 End stage renal disease I73.9 Peripheral vascular disease, unspecified E11.69 Type 2 diabetes mellitus with other specified complication L97.519 Non-prs chronic ulcer oth prt right foot w unsp severity Office Visit 05/03/2018 11:30a Wound Care Fitz Leon L89.893 Pressure ulcer Center AT [facility] , FACS of other site, stage 3 E11.621 Type 2 diabetes mellitus with foot ulcer M86.271 Subacute osteomyelitis, right ankle and foot I73.9 Peripheral vascular disease, unspecified N18.6 End stage renal disease R09.89 Oth symptoms and signs involving the circ and resp systems M21.6x1 Other acquired deformities of right foot Office Visit 04/26/2018 11:00a Wound Care Fitz Leon L89.893 Pressure ulcer Center AT [facility] MD FACS of other site, stage 3 E11.621 Type 2 diabetes mellitus with foot ulcer I73.9 Peripheral vascular disease, unspecified N18.6 End stage renal disease R09.89 Oth symptoms and signs involving the circ and resp systems M21.6x1 Other acquired deformities of right foot Office Visit 01/04/2018 [facility] Fitz Bermudez E11.621 Type 2 diabetes 8:00a [facility] MD Carolyn, mellitus with FACS foot ulcer Office Visit 05/18/2017 [place] Phillip Sampson J96.01 Acute respiratory 8:39a Assocmanuel M.D. failure with Hospitalists hypoxia S91.302A Unspecified open wound, left foot, initial encounter E11.8 Type 2 diabetes mellitus with unspecified complications I10 Essential (primary) hypertension Office Visit 05/17/2017 8:37a [place] Phillip Page96.01 Acute respiratory Assocmanuel M.D. failure with Hospitalists hypoxia S91.302A Unspecified open wound, left foot, initial encounter E11.8 Type 2 diabetes mellitus with unspecified complications I10 Essential (primary) hypertension Office Visit 05/16/2017 8:34a [place] Phillip Page96.01 Acute respiratory Assmanuel alvarez M.D. failure with Hospitalists hypoxia S91.302A Unspecified open wound, left foot, initial encounter E11.8 Type 2 diabetes mellitus with unspecified complications I10 Essential (primary) hypertension Office Visit 05/15/2017 8:33a [place] Phillip Page96.01 Acute respiratory Assocmanuel M.D. failure with Hospitalists hypoxia S91.302A Unspecified open wound, left foot, initial encounter E11.8 Type 2 diabetes mellitus with unspecified complications I10 Essential (primary) hypertension [facility] J[facility].01 Acute respiratory 8:32a manuel Sosa M.D. failure with Hospitalists hypoxia S91.302A Unspecified open wound, left foot, initial encounter E11.8 Type 2 diabetes mellitus with unspecified complications I10 Essential (primary) hypertension Office Visit 05/13/2017 [facility] Philly Hohn, J96.01 Acute respiratory 8:24a manuel Sosa M.D. failure with Hospitalists hypoxia S91.302A Unspecified open wound, left foot, initial encounter E11.8 Type 2 diabetes mellitus with unspecified complications I10 Essential (primary) hypertension Office Visit 05/12/2017 [facility] Philly Hohn, J96.01 Acute respiratory 8:21a manuel Sosa M.D. failure with Hospitalists hypoxia S91.302A Unspecified open wound, left foot, initial encounter E11.8 Type 2 diabetes mellitus with unspecified complications I10 Essential (primary) hypertension Office Visit 05/11/2017 [facility] Philly Miller, J96.01 Acute respiratory 8:20a manuel Sosa M.D. failure with Hospitalists hypoxia S91.302A Unspecified open wound, left foot, initial encounter E11.8 Type 2 diabetes mellitus with unspecified complications I10 Essential (primary) hypertension Office Visit 05/10/2017 10:03a Colin Torres I73.9 Peripheral Medicine Of Real Coelho M.D. vascular disease, unspecified E11.8 Type 2 diabetes mellitus with unspecified complications [facility] J96.01 Acute respiratory 8:19a manuel Sosa M.D. failure with Hospitalists hypoxia S91.302A Unspecified open wound, left foot, initial encounter E11.8 Type 2 diabetes mellitus with unspecified complications I10 Essential (primary) hypertension Office Visit 05/09/2017 8:18a [facility] Chema Dukes J96.01 Acute respiratory Assmanuel alvarez MD failure with Hospitalists hypoxia S91.302A Unspecified open wound, left foot, initial encounter E11.8 Type 2 diabetes mellitus with unspecified complications I10 Essential (primary) hypertension Office Visit 05/09/2017 [facility] M86.672 Other chronic 11:40a Services Of VANDANA Harris osteomyelitis, left ankle and foot Office [facility] J96.01 Acute respiratory 8:08a manuel Sosa MD failure with Hospitalists hypoxia S91.302A Unspecified open wound, left foot, initial encounter E11.8 Type 2 diabetes mellitus with unspecified complications I10 Essential (primary) hypertension Office Visit 05/07/2017 7:56a [facility] Chema Dukes, J96.01 Acute respiratory manuel Sosa MD failure with Hospitalists hypoxia S91.302A Unspecified open wound, left foot, initial encounter E11.8 Type 2 diabetes mellitus with unspecified complications I10 Essential (primary) hypertension Office Visit 04/25/2017 [facility] Philly Miller J96.01 Acute respiratory 10:09a manuel Sosa M.D. failure with Hospitalists hypoxia S91.302A Unspecified open wound, left foot, initial encounter E11.8 Type 2 diabetes mellitus with unspecified complications I10 Essential (primary) hypertension Office Visit 04/24/2017 [facility] Philly Miller J96.01 Acute respiratory 10:08a manuel Sosa M.D. failure with Hospitalists hypoxia S91.302A Unspecified open wound, left foot, initial encounter E11.8 Type 2 diabetes mellitus with unspecified complications I10 Essential (primary) hypertension Office Visit 04/23/2017 [facility] Josy Mosquera J96.01 Acute 10:06a manuel Sosa NP respiratory Hospitalists failure with hypoxia S91.302A Unspecified open wound, left foot, initial encounter E11.8 Type 2 diabetes mellitus with unspecified complications I10 Essential (primary) hypertension Office Visit 03/30/2017 2:30p Cardiology William Rocky I34.0 Nonrheumatic mitral Services Of Real Chavez M.D., (valve) AT [facility], FASNC insufficiency I10 Essential (primary) hypertension Z01.810 Encounter for preprocedural cardiovascular examination M86.672 Other chronic osteomyelitis, left ankle and foot Office Visit 02/21/2017 [facility] Ector Spencer E10.69 Type 1 diabetes 2:05p For Infectious Kathy Mcwilliams mellitus with Diseases other specified complication 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 E11.621 Type 2 Assoc,pc Ignacio N.PJoey diabetes Hospitalists mellitus with foot ulcer N18.6 End stage renal disease E11.8 Type 2 diabetes mellitus with unspecified complications I10 Essential (primary) hypertension Office Visit 02/20/2017 7:21a [facility] [place] S. E11.621 Type 2 Assoc,manuel Pierre N.PJoey diabetes Hospitalists mellitus with foot ulcer E11.8 Type 2 diabetes mellitus with unspecified complications N18.6 End stage renal disease I10 Essential (primary) hypertension Office Visit 02/19/2017 7:21a [facility] [place] S. N18.6 End stage Assoc,manuel Pierre N.PJoey renal disease Hospitalists E11.621 Type 2 diabetes mellitus with foot ulcer E11.8 Type 2 diabetes mellitus with unspecified complications I10 Essential (primary) hypertension Office Visit 02/18/2017 7:20a [facility] Philly Miller, N18.6 End stage Assocmanuel M.D. renal disease Hospitalists E11.621 Type 2 diabetes mellitus with foot ulcer E11.8 Type 2 diabetes mellitus with unspecified complications I10 Essential (primary) hypertension Office Visit 02/18/2017 9:37a Orthopedic Services Adrián I96 Gangrene, not Of Isabel Louis M.D. elsewhere classified Office Visit 02/17/2017 7:19a [facility] Julius N18.6 End stage renal Assoc,manuel Avila N.P. disease Hospitalists E11.621 Type 2 diabetes mellitus with foot ulcer E11.8 Type 2 diabetes mellitus with unspecified complications I10 Essential (primary) hypertension Office Visit 01/30/2017 7:34a [facility] Taryn R07.9 Chest pain, Assoc,manuel Monaco M.D. unspecified Hospitalists I50.9 Heart failure, unspecified N18.6 End stage renal disease Z99.2 Dependence on renal dialysis Office Visit 2017 8:03a [place] Phillip Sampson N17.9 Acute kidney Assoc,manuel Rawls M.D. failure, Hospitalists unspecified E87.5 Hyperkalemia N18.5 Chronic kidney disease, stage 5 E83.39 Other disorders of phosphorus metabolism Office Visit 01/23/2017 8:02a [place] N17.9 Acute kidney Assoc,manuel Rawls M.D. failure, Hospitalists unspecified E87.5 Hyperkalemia E83.39 Other disorders of phosphorus metabolism N18.5 Chronic kidney disease, stage 5 Office Visit 01/22/2017 8:00a [place] Phillip Sampson N17.9 Acute kidney Assocmanuel M.D. failure, Hospitalists unspecified E87.5 Hyperkalemia E83.39 Other disorders of phosphorus metabolism N18.5 Chronic kidney disease, stage 5 Office Visit 01/21/2017 7:51a [place] Phillip Sampson N17.9 Acute kidney Assocmanuel M.D. failure, Hospitalists unspecified E87.5 Hyperkalemia E83.39 Other disorders of phosphorus metabolism N18.5 Chronic kidney disease, stage 5 Office Visit 01/20/2017 7:50a [place] Phillip Sampson N17.9 Acute kidney Assoc,manuel Rawls M.D. failure, Hospitalists unspecified N18.5 Chronic kidney disease, stage 5 E87.5 Hyperkalemia E83.39 Other disorders of phosphorus metabolism Office Visit 01/19/2017 [facility] Nitin Licea N17.9 Acute kidney 7:47a Assmanuel alvarez II, M.D. failure, Hospitalists unspecified E87.5 Hyperkalemia N18.5 Chronic kidney disease, stage 5 E83.39 Other disorders of phosphorus metabolism Office Visit 08/26/2015 11:34a Wound Care Simba Chapa M10.079 Idiopathic gout , [facility] Kathy Phillip unspecified ankle and foot E11.621 Type 2 diabetes mellitus with foot ulcer M86.671 Other chronic osteomyelitis, right ankle and foot L97.411 Non-prs chr ulcer of right heel and midft lmt to brkdwn skin Office Visit 08/17/2015 2:24p Wound Care Simba Chapa M10.079 Idiopathic gout , Center [facility] Kathy Phillip unspecified ankle and foot E11.621 Type 2 diabetes mellitus with foot ulcer M86.671 Other chronic osteomyelitis, right ankle and foot Office Visit 08/10/2015 10:50a [facility] El Spencer Z89.421 Acquired Infectious Kathy Mcwilliams absence of Diseases other right toe(s) L97.519 Non-prs chronic ulcer oth prt right foot w unsp severity Office Visit 07/27/2015 9:30a [facility] Etcor Spencer Z89.421 Acquired Infectious Kathy Mcwilliams absence of Diseases other right toe(s) E11.621 Type 2 diabetes mellitus with foot ulcer L97.519 Non-prs chronic ulcer oth prt right foot w unsp severity Office Visit 06/10/2015 10:29a Wound Care Simba Chapa E11.321 Type 2 diab w Center AT [facility] Kathy 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 ankle and foot Office Visit 04/28/2015 Orthopedic Adrián Quevedo86.671 Other chronic 2:50p Services Of Kathy Louis osteomyelitis, right C.M.A. ankle and foot Office Visit 04/15/2015 Orthopedic Adrián Quevedo86.671 Other chronic 11:15a Services Of Kathy Louis osteomyelitis, right C.M.A. ankle and foot Office Visit 01/11/2015 [facility] Ector Spencer M86.671 Other chronic 3:00p For Infectious [place], osteomyelitis, right Diseases MJoeyDJoey ankle and foot E10.59 Type 1 diabetes mellitus with oth circulatory complications Z79.4 rn long term care (current) use of insulin Z89.421 Acquired absence of other right toe(s) Office Visit 12/21/2014 [facility] Philly Miller, N17.9 Acute kidney 12:13p Assoc,pc MEleanor failure, Hospitalists unspecified M86.9 Osteomyelitis, unspecified A41.9 Sepsis, unspecified organism E13.9 Other specified diabetes mellitus without complications Office Visit 12/20/2014 [facility] M86.9 Osteomyelitis, 12:12p manuel Sosa M.D. unspecified Hospitalists A41.9 Sepsis, unspecified organism N17.9 Acute kidney failure, unspecified E13.9 Other specified diabetes mellitus without complications [facility]omyelitis, 12:12p manuel Sosa M.D. unspecified Hospitalists A41.9 Sepsis, unspecified organism N17.9 Acute kidney failure, unspecified E13.9 Other specified diabetes mellitus without complications Office Visit 12/18/2014 [facility] Angela, N17.9 Acute kidney 12:11p manuel Sosa M.D. failure, Hospitalists unspecified M76.9 Unspecified enthesopathy, lower limb, excluding foot A41.9 Sepsis, unspecified organism E13.9 Other specified diabetes mellitus without complications Office Visit 12/17/2014 7:[address]a [facility] Ector Spencer E11.52 Type 2 diabetes Infectious Kathy Mcwilliams w diabetic Diseases peripheral angiopathy w gangrene [...] disease, stage 3 (moderate) [facility] Osteomyelitis, 12:10p manuel Sosa M.D. unspecified Hospitalists A41.9 Sepsis, unspecified organism N17.9 Acute kidney failure, unspecified E13.9 Other specified diabetes mellitus without complications Office Visit 12/16/2014 Orthopedic Dara M86.9 Osteomyelitis, 7:00a Services Of Isabel Vergara M.D. unspecified Office Visit 12/16/2014 [facility] [place] LairdJoey M86.9 Osteomyelitis, 12:08p manuel Sosa, N.PJoey unspecified Hospitalists A41.9 Sepsis, unspecified organism N17.9 Acute kidney failure, unspecified E13.9 Other specified diabetes mellitus without complications Office Visit 03/18/2013 [facility] Ector Spencer 681.10 Cellulitis & 9:30a For Gregorio Mcwilliams M.D. Abscess Toe Unspec Diseases Office Visit 02/25/2013 [facility] Ector Spencer 730.00 Osteomyelitis Acute 9:30a For Infectious Kathy Mcwilliams Site Unspec Diseases 681.10 Cellulitis & Abscess Toe Unspec Office Visit 02/04/2013 [facility] Ector Spencer 730.00 Osteomyelitis Acute 9:30a For Infectious Kathy Mcwilliams Site Unspec Diseases 588.9 Renal Function Impairment Disorders Unspec Office Visit 2013 11:06a [facility] Taryn 681.10 Cellulitis & Assoc,manuel Monaco M.D. Abscess Toe Hospitalists Unspec 730.00 Osteomyelitis Acute Site Unspec 250.02 Diabetes Mellitus W/O Compl Type II Or Unspec Type Uncontrol 584.5 Acute Kidney Failure With Lesion Of Tubular Necrosis Office Visit 01/23/2013 11:06a [facility] Taryn 681.10 Cellulitis & Assoc,manuel Monaco M.D. Abscess Toe Hospitalists Unspec 250.02 Diabetes Mellitus W/O Compl Type II Or Unspec Type Uncontrol 584.5 Acute Kidney Failure With Lesion Of Tubular Necrosis Office Visit 01/22/2013 11:06a [facility] Taryn 681.10 Cellulitis & Assoc,manuel Monaco M.D. Abscess Toe Hospitalists Unspec 250.02 Diabetes Mellitus W/O Compl Type II Or Unspec Type Uncontrol 584.5 Acute Kidney Failure With Lesion Of Tubular Necrosis Office Visit 01/21/2013 11:05a [facility] Taryn 681.10 Cellulitis & Assoc,manuel Monaco M.D. Abscess Toe Hospitalists Unspec 250.02 Diabetes Mellitus W/O Compl Type II Or Unspec Type Uncontrol Office Visit 01/21/2013 [facility] El Spencer 730.27 Osteomyelitis 9:16a Gregorio Mcwilliams M.D. Unspec Ankle & Diseases Foot Office Visit 01/20/2013 [facility] Philly 681.10 Cellulitis & 11:05a Assoc,manuel Miller M.D. Abscess Toe Unspec Hospitalists 250.02 Diabetes Mellitus W/O Compl Type II Or Unspec Type Uncontrol 584.5 Acute Kidney Failure With Lesion Of Tubular Necrosis Office Visit 01/19/2013 [facility] Angela, 681.10 Cellulitis & 11:05a manuel Sosa M.D. Abscess Toe Hospitalists Unspec 250.02 Diabetes Mellitus W/O Compl Type II Or Unspec Type Uncontrol 584.5 Acute Kidney Failure With Lesion Of Tubular Necrosis [facility]ulitis & 11:04a manuel Sosa M.D. Abscess Toe Hospitalists Unspec 250.02 Diabetes Mellitus W/O Compl Type II Or Unspec Type Uncontrol 584.5 Acute Kidney Failure With Lesion Of Tubular Necrosis Office Visit 01/17/2013 11:04a [facility] [place] Tsang 681.10 Cellulitis & Assoc,manuel Pierre N.PJoey Abscess Toe Hospitalists Unspec 250.02 Diabetes Mellitus W/O Compl Type II Or Unspec Type Uncontrol 584.5 Acute Kidney Failure With Lesion Of Tubular Necrosis Office Visit [facility]/16/[facility] Kidney manuel Sosa M.D. Failure With Hospitalists Lesion Of Tubular Necrosis 681.10 Cellulitis & Abscess Toe Unspec 250.02 Diabetes Mellitus W/O Compl Type II Or Unspec Type Uncontrol Office Visit 01/16/2013 [place] Lynn Spencer 730.27 Osteomyelitis 2:16p Gregorio Mcwilliams M.D. Unspec Ankle & Diseases Foot Office Visit 01/15/2013 [facility] 584.5 Acute Kidney 11:03a manuel Sosa M.D. Failure With Hospitalists Lesion Of Tubular Necrosis 681.10 Cellulitis & Abscess Toe Unspec 250.02 Diabetes Mellitus W/O Compl Type II Or Unspec Type Uncontrol 995.92 Severe Sepsis Office Visit 01/15/2013 [place] Lynn Spencer 730.27 Osteomyelitis 12:10p Gregorio Mcwilliams M.D. Unspec Ankle & Diseases Foot Office Visit 01/14/2013 [facility] 995.92 Severe Sepsis 11:03a manuel Sosa M.D. Hospitalists 681.10 Cellulitis & Abscess Toe Unspec 250.02 Diabetes Mellitus W/O Compl Type II Or Unspec Type Uncontrol 584.5 Acute Kidney Failure With Lesion Of Tubular Necrosis Office Visit 01/13/2013 11:02a [facility] Philly Miller, 995.92 Severe Sepsis manuel Sosa M.D. Hospitalists 681.10 Cellulitis & Abscess Toe Unspec 250.02 Diabetes Mellitus W/O Compl Type II Or Unspec Type Uncontrol 584.5 Acute Kidney Failure With Lesion Of Tubular Necrosis Office Visit 06/06/2009 12:15a [facility] Zain 250.00 Diabetes Assmanuel alvarez M.D. Mellitus W/O Hospitalists Compl Type II Or Unspec Controlled 730.20 Osteomyelitis Unspec Site Unspec 401.9 Hypertension Unspec [facility] manuel Sosa M.D. Mellitus W/O Hospitalists Compl Type II Or Unspec Controlled Office Visit 06/04/2009 [facility] 250.[facility] Diabetes manuel Sosa M.D. Mellitus W/O Hospitalists Compl Type II Or Unspec Controlled 593.9 Kidney & Ureter Disorders Unspec Office Visit 06/02/2009 [facility], 730.20 Osteomyelitis 12:15a manuel Sosa M.D. Unspec Site Unspec Hospitalists 250.00 Diabetes Mellitus W/O Compl Type II Or Unspec Controlled Office Visit 06/01/2009 [facility], 730.20 Osteomyelitis 12:15a manuel Sosa M.D. Unspec Site Unspec Hospitalists Office Visit 05/31/2009 [facility], 730.20 Osteomyelitis 4:00a manuel Sosa M.D. Unspec Site Unspec Hospitalists Plan of Treatment Future Appointment(s):06/12/2018 2:00 pm - William Chavez M.D., [facility] at [facility]06/11/2018 10:00 am - Traveling ECHO 1 at [place]06/20/2018 1:40 pm - Ector Mcwilliams M.D. at [place] [facility]/22/2019 - Ector Mcwilliams M.D.M86.271 Subacute osteomyelitis, right ankle and footComments:continue doxy twice daily and augmentin will decrease to once daily for ESRD and may help the diarrheaFollow up:3 [id number] Type 2 diabetes mellitus with diabetic neuropathy, unspR19.7 Diarrhea, unspecifiedComments:abx related, not [id number] Adverse effect of penicillins, initial encounter
--- OUTSIDE RECORDS SUMMARY | 2018-07-01 09:54 | XMS REPORT | Continuity of Care Document ---
:1965 External Reference #:[id number] Author Name Sofia Stephensecca Care Team Providers Name Role Phone Roman Villa MD Primary Care Physician Unavailable Payers Date Identification Numbers Payment Provider Subscriber Effective: Policy Number: [id number] [facility] Katy Jacobo [place] 2010 PayID: [id number] [address] [address] [place] [address] Policy Number: [id number] Medicare Katy Jacobo [place] PayID: [id number] [address] [place] [address] Advance Directives Description No Information Available Problems Date Description Provider Status Onset: 02/03/2015 Chronic osteomyelitis of ankle Adrián Louis M.D. Active and/or foot Onset: 03/30/2017 Mitral valve disorder William Chavez M.D., Active FACC, ELIANA Onset: 03/30/2017 Essential hypertension William Chavez M.D., Active FACC, FASNC Family History Date Family Member(s) Observation Comments General Father-[place] General mother- due to liver cancer. General paternal abspukobtjk-fnspirfq-ART General Maternal grandfather-heart disease- due to General - 12/2016-[place] Social History Type Date Description Comments Sex [...] DJoey Potassium 06/04/19 daily Rachel 19 Kathy Sherman 04/06/19 Hx Tablets 5-325mg 20tab 1 tab by Adrián 18 - s mouth q6 Heriberto, 05/25/19 hours as Kathy 18 needed pain Sherman 02/28/20 Hx Tablets 5-325mg 20tab 1 tab [...] Result H/L Range Note Laboratory test 06/04/2018 [facility] C Difficile SEE RESULT [address] [place] [address] [phone] Inr/Protime 05/10/2018 [facility] Inr 1.37 High 0.77-1.[address] [place] [address] [phone] Laboratory test 05/10/2018 [facility] Partial 33.6 seconds N 26.0-36.[address] [place] [place] [address] PTT [phone] CBC Auto Diff 05/10/2018 [facility] White Blood 7.3 10^3/uL N 3.5-10.[address] [place] [address] [phone] Red Blood Count 2.68 10^6/uL Low 4.00-5.40 [...] Cells % 0 Basic Metabolic Panel 05/10/2018 [facility] Sodium 138 mmol/L N 135-[address] [place] [address] [phone] Potassium 2.9 mmol/L Low 3.5-5.0 Chloride 92 mmol/L Low 101-111 Co2 Carbon Dioxide 36 mmol/L High 22-32 Anion Gap 10 mmol/L N 2-11 Glucose 103 mg/dL High 70-100 Blood Urea Nitrogen 15 mg/dL N 6-24 Creatinine 4.01 mg/dL High 0.67-1.17 BUN/Creatinine Ratio 3.7 Low 8-20 Calcium 9.1 mg/dL N 8.6-10.3 Egfr Non- 15.7 >60 Egfr 19.0 >60 2 Laboratory test 03/29/2018 [facility] Tissue Culture SEE RESULT 3, [address] & [place] [address] [phone] Basic Metabolic 01/09/2018 [facility] Sodium 141 mmol/L N 135- [address] [place] [address] [phone] Potassium 3.6 mmol/L N 3.5-5.0 Chloride 94 mmol/L Low 101-111 Co2 Carbon Dioxide 33 mmol/L High 22-32 Anion Gap 14 mmol/L High 2-11 Glucose 104 mg/dL High 70-100 Blood Urea Nitrogen 37 mg/dL High 6-24 Creatinine 7.57 mg/dL High 0.67-1.17 BUN/Creatinine Ratio 4.9 Low 8-20 Calcium 8.4 mg/dL Low 8.6-10.3 Egfr Non- 7.6 >60 Egfr 9.1 >60 5 Laboratory test 01/09/2018 [facility] Erythrocyte Sed 79 mm/Hr High 0-[address] [place] [address] [phone] Urinalysis 03/31/2017 [facility] Urine Color Yellow Profile [address] [place] [address] [phone] Urine Appearance Clear Urine Specific [place] 1.014 N 1.010-1.030 Urine pH 8.0 N [...] Cell Present Abnormal Absent CBC Auto 03/29/2017 [facility] White Blood 12.6 10^3/uL High 3.5-10.[address] [place] [address] [phone] Red Blood Count 2.22 10^6/uL Low 4.0-5.4 [...] Cells % 0.1 Basic Metabolic Panel 03/29/2017 [facility] Sodium 134 mmol/L N 133-145 [address] [place] [address] [phone] Potassium 4.8 mmol/L N 3.5-5.0 Chloride 93 mmol/L Low 101-111 Co2 Carbon Dioxide 31 mmol/L N 22-32 Anion Gap 10 mmol/L N 2-11 Glucose 93 mg/dL N 70-100 Blood Urea Nitrogen 24 mg/dL N 6-24 Creatinine 3.98 mg/dL High 0.67-1.17 BUN/Creatinine Ratio 6.0 Low 8-20 Calcium 8.7 mg/dL N 8.6-10.3 Egfr Non- 15.9 >60 Egfr 20.4 >60 6 Inr/Protime 03/29/2017 [facility] Inr 1.21 High 0.77-1.[address] [place] [address] [phone] Laboratory test 03/29/2017 [facility] Partial 35.9 N 26.0- 36.[address] [place] [address] PTT [phone] Laboratory test 08/03/2015 [facility] C Reactive < 1.00 mg/L N < 5.[address] [place] [address] [phone] Laboratory test 07/06/2015 [facility] C Reactive < 1.00 mg/L N < 5.00 [address] [place] [address] [phone] CBC Auto Diff 07/06/2015 [facility] White Blood 7.4 10^3/uL N 3.5-10.[address] [place] [address] [phone] Red Blood Count 3.30 10^6/uL Low 4.0-5.4 [...] Cells % 0.1 N Laboratory test 07/06/2015 [facility] Erythrocyte Sed 81 mm/Hr High 0-[address] [place] [address] [phone] Laboratory test 06/08/2015 [facility] Hemoglobin A1c 7.6 % High Less [address] (Glyco HGB) than 6.0 [place] [address] [phone] Laboratory test 12/24/2014 [facility] Uric Acid 5.8 mg/dL N 4.4-7.[address] [place] [address] [phone] Basic Metabolic 12/24/2014 [facility] Sodium 138 N 133-[address] mmol/[place] [address] [phone] Potassium 5.7 mmol/L High 3.5-5.0 Chloride 111 mmol/L N 101-111 Co2 Carbon Dioxide 18 mmol/L Low 22-32 Anion Gap 9 mmol/L N 2-11 Glucose 157 mg/dL High 70-100 Blood Urea Nitrogen 34 mg/dL High 6-24 Creatinine 3.08 mg/dL High 0.67-1.17 BUN/Creatinine Ratio 11.0 N 8-20 Calcium 8.3 mg/dL Low 8.6-10.3 Egfr Non- 21.6 N >60 Egfr 27.8 N >60 10 Laboratory test 02/25/2013 [facility] C Reactive 0.6 mg/dL High Less than finding [address] Protein 0.5 [place], [place] [phone] Comp Metabolic 02/25/2013 [facility] Sodium 132 mmol/L Low 133 -[address] [place] [address] [phone] Potassium 4.0 mmol/L 3.5-5.0 Chloride 104 mmol/L [...] >60 Egfr 69.3 >60 11 Wound 02/19/2013 [facility] Wound/Misc (SEE NOTE) 12 Culture/Sensi [address] [place] [address] Stain [phone] Comp Metabolic 02/11/2013 [facility] Sodium 140 mmol/L 133-[address] [place] [address] [phone] Potassium 4.1 mmol/L 3.5-5.0 Chloride 106 mmol/L [...] Egfr 51.8 >60 13 Laboratory test 02/11/2013 [facility] C Reactive 0.6 mg/dL High Less than finding [address] Protein 0.5 [place] [address] [phone] Basic Metabolic 01/30/2013 [facility] Sodium 134 mmol/L 133- [address] [place] [address] [phone] Potassium 4.8 mmol/L 3.5-5.0 Chloride 102 mmol/L 101-111 Co2 Carbon Dioxide 24.0 mmol/L 22-32 Anion Gap 8.0 mmol/L 2-11 Glucose 261 mg/dL High 70-100 Blood Urea Nitrogen 29 mg/dL High 6-24 Creatinine 2.10 mg/dL High 0.50-1.40 BUN/Creatinine Ratio 13.8 8-20 Calcium 9.0 mg/dL 8.1-9.9 Egfr Non- 33.7 >60 Egfr 43.4 >60 14 CBC Auto Diff 01/30/2013 [facility] White Blood 10.3 10^3/uL 4.8-10.[address] [place] [address] [phone] Red Blood Count 3.46 10^6/uL Low 4.0-5.4 [...] Blood Cells % 0.1 Laboratory test 01/13/2013 [facility] Glucose 399 mg/dL High 70-100 finding [address] [place] [address] [phone] 1 SEE RESULT BELOW Name: KATY SINGLETARY : [address]: Ector Mcwilliams MD Acct: [id number] Unit: [id number] AGE: 53 Location: [facility] Re06/03/18 SEX: M Status: REG REF SPEC: [id number] ANGELES: 06/04/18-[address] [facility] [address]: Ector Mcwilliams MD REQ: [id number] RECD: 06/04/18 STATUS: COMP _ SOURCE: STOOL SPDESC: ORDERED: C. diff PCR, Stool Culture COMMENTS: [id number] ADDED 06/05/18 TO [id number] SPECIMEN IN CUP YELLOW TOP C S [...] CONTINUED ON NEXT PAGE DEPARTMENT OF PATHOLOGY, [address] [place] [address] Juan Deleon M.D. Director MIKE # [id number] Patient: KATY SINGLETARY [id number] (Continued) Specimen: [id number] Collected: 06/04/18 Received: 06/04/18 (Continued) Procedure Result Reported Site C. difficile PCR Final (continued) 06/04/18- 1256 * - [facility] . END OF REPORT DEPARTMENT OF PATHOLOGY, [address] [place] [address] Juan Deleon M.D. Director [facility] # [id number] 2 Because ethnic data is not always [...] SINGLETARY : [address]: Amparo Landis COACH OPERATOR Acct: [id number] Unit: [id number] AGE: 53 Location: WOUND Re03/29/18 SEX: M Status: REG REF SPEC: [id number] ANGELES: 03/29/[address] [facility] [address]: Amparo Landis COACH OPERATOR REQ: [id number] RECD: 03/29/18 STATUS: ROM OZUNA DR: Lety Santamaria [facility] _ SOURCE: TISSUE SPDESC:RIGHT ORDERED: Tissue Cult/GS [...] CONTINUED ON NEXT PAGE DEPARTMENT OF PATHOLOGY, [address] [place] [address] Juan Deleon M.D. Director SEFER[facility]AN[facility] # [id number] Patient: KATY SINGLETARY [id number] (Continued) Specimen: [id number] Collected: 03/29/18 Received: 03/29/18441 (Continued) Procedure Result Reported Site Tissue Culture [...] . END OF REPORT DEPARTMENT OF PATHOLOGY, [address] [place] [address] Juan Deleon M.D. Director [facility] # [id number] 5 Because ethnic data is not always [...] and in selective patients <6.0%.Please refer to [employer] Diabetic care guidelines for further [...] <15 (or dialysis) 12 RUN DATE: 02/21/13 [facility] LAB LIVE PAGE 1 RUN TIME: [address] [place] [address] Specimen Inquiry Name: YEISONKATY Donnell : [address]: Mono Marcelino Acct: [id number] Unit: [id number] AGE: 48 Location: WOUND Re02/21/13 SEX: M Status: REG RCR SPEC: [id number] ANGELES: 02/19/[address]: Mono Marcelino DPM REQ: [id number] RECD: 02/19/133 STATUS: ROM OZUNA DR: Ector Glasgow MD _ SOURCE: TOE SPDESC:RIGHT ORDERED: Culture Stain Procedure Result Verified Site Wound/Misc Gram Stain Final 02/19/13- 1422 ML No Polys Observed No Organisms Seen Wound/Misc Culture Final 02/21/13- 1112 ML Organism 1 NORMAL KEVIN Quantity 1+ END OF REPORT * ML=Testing performed at Main Lab DEPARTMENT OF PATHOLOGY, [address] [place] [address] Juan Deleon M.D. Director [facility] Permit #[id number] 13 Because ethnic data is not always [...] dialysis) Procedures Date Code Description Status 05/31/2018 42484 Removal Devitalization Tissue Wound Less Than Equal 20 Completed Square CM 05/17/2018 61259 I&D Of Abscess Complicated Completed 05/10/2018 93130 Moderate Sedation Services; Same Phys Each Additional 15 Completed Mins 05/10/2018 65459 Moderate Sedation Services; Same Phys Intl 15 Mins; PT >=5 Completed Years 05/10/2018 98221 Ultrasound Guidance For Vascular Access Completed 05/10/2018 13295 Dialysis Circuit W/ Transluminal Balloon Angioplasty, Completed Peripheral 04/12/2018 29824 Chemical Cautery Granulation Tissue Completed 04/05/2018 59219 Apply Total Contact Leg Cast Completed 03/29/2018 87105 Debridement Skin,& sq Tissue Completed 03/22/2018 54880 Apply Total Contact Leg Cast Completed 03/15/2018 07433 Removal Devitalization Tissue Wound Less Than Equal 20 Completed Square CM 03/01/2018 08426 Apply Total Contact Leg Cast Completed 02/21/2018 69301 Removal Devitalization Tissue Wound Less Than Equal 20 Completed Square CM 02/15/2018 30790 Apply Total Contact Leg Cast Completed 02/08/2018 80516 Apply Total Contact Leg Cast Completed 01/18/2018 06695 Apply Total Contact Leg Cast Completed 01/11/2018 05031 Apply Total Contact Leg Cast Completed 01/04/2018 16714 Debridement Skin,& sq Tissue Completed 12/03/2017 35770 Removal Of Tunneled Central Venous Cath W/O Subcutaneous Completed Port/MANAGER DIGITAL AD OPERATIONS 05/10/2017 95471 Amputation Foot Midtarsal Completed 05/10/2017 31319 Amputation Foot Midtarsal Completed 05/10/2017 64329 Transfer Tendon Leg Or Ankle Superficial Completed 05/10/2017 67796 Transfer Tendon Leg Or Ankle Superficial Completed 05/10/2017 91754 Tenotomy Achilles Tendon General Anesthesia Completed 04/23/2017 89947 EKG, Interpretation Only Completed 03/30/2017 27924 EKG Tracing & Interpretation Completed 03/28/2017 45276 Rad Exam; Foot Comp Completed 03/02/2017 55466 Short Leg Cast Completed 02/19/2017 57108 Amputation Foot Transmetatarsal Completed 02/19/2017 29486 Amputation Foot Transmetatarsal Completed 01/31/2017 25043 Treadmill Interp/Report Only Completed 01/31/2017 82581 Stress Test Supervsn W/Out I/R Completed 01/30/2017 58434 ECHO Transthorasic Realtime 2D W Doppler & Color Flow Hosp Completed 01/23/2017 57016 Fluoroscopic Guidance For Cent Completed 01/23/2017 29642 Insertion Tunneled Cent Venous Cathr W/O Subcut Port/Pump Completed 5Yrs> 01/21/2017 13911 EKG, Interpretation Only Completed 01/19/2017 43853 EKG, Interpretation Only Completed 01/19/2017 59336 Insert Non-Tunneled Venous Catether Completed 08/19/2015 09844 Apply Total Contact Leg Cast Completed 08/10/2015 94271 Removal Devitalization Tissue Wound Less Than Equal 20 Completed Square CM 08/03/2015 71900 Removal Devitalization Tissue Wound Less Than Equal 20 Completed Square CM 07/27/2015 99949 Removal Devitalization Tissue Wound Less Than Equal 20 Completed Square CM 07/20/2015 32632 Removal Devitalization Tissue Wound Less Than Equal 20 Completed Square CM 07/13/2015 21136 Removal Devitalization Tissue Wound Less Than Equal 20 Completed Square CM 07/06/2015 06983 Removal Devitalization Tissue Wound Less Than Equal 20 Completed Square CM 06/29/2015 18568 Removal Devitalization Tissue Wound Less Than Equal 20 Completed Square CM 06/22/2015 43664 Removal Devitalization Tissue Wound Less Than Equal 20 Completed Square CM 06/15/2015 56904 Removal Devitalization Tissue Wound Less Than Equal 20 Completed Square CM 06/08/2015 17860 Removal Devitalization Tissue Wound Less Than Equal 20 Completed Square CM 06/01/2015 95824 Removal Devitalization Tissue Wound Less Than Equal 20 Completed Square CM 05/25/2015 31413 Removal Devitalization Tissue Wound Less Than Equal 20 Completed Square CM 05/18/2015 15076 Removal Devitalization Tissue Wound Less Than Equal 20 Completed Square CM 05/11/2015 68797 Removal Devitalization Tissue Wound Less Than Equal 20 Completed Square CM 05/04/2015 68854 Removal Devitalization Tissue Wound Less Than Equal 20 Completed Square 12/29/2014 62390 Short Leg Cast Completed 12/17/2014 43834 Amputation Foot Transmetatarsal Completed 12/17/2014 47349 Amputation Foot Transmetatarsal Completed 01/14/2013 17454 EKG, Interpretation Only Completed Encounters Type Date Location Provider Dx Diagnosis Office Visit 05/31/2018 [facility] Ector Spencer M86.271 Subacute 10:50a Infectious Kathy Mcwilliams osteomyelitis, Diseases right ankle and foot E11.40 Type 2 diabetes mellitus with diabetic neuropathy, unsp R19.7 Diarrhea, unspecified T36.0x5A Adverse effect of penicillins, initial encounter Office Visit 05/24/2018 10:45a Wound Care Fitz Leon, L89.893 Pressure ulcer Center AT [facility] , FACS of other site, stage 3 E11.621 Type 2 diabetes mellitus with foot ulcer M86.271 Subacute osteomyelitis, right ankle and foot I73.9 Peripheral vascular disease, unspecified N18.6 End stage renal disease R09.89 Oth symptoms and signs involving the circ and resp systems M21.6x1 Other acquired deformities of right foot Office Visit 05/17/2018 [facility] Ector Spencer M86.271 Subacute 10:50a For Gregorio [...] Fitz Leon L89.893 Pressure ulcer Center AT [facility] , FACS of other site, stage 3 E11.621 Type 2 diabetes mellitus with foot ulcer M86.271 Subacute osteomyelitis, right ankle and foot I73.9 Peripheral vascular disease, unspecified N18.6 End stage renal disease R09.89 Oth symptoms and signs involving the circ and resp systems M21.6x1 Other acquired deformities of right foot Office Visit 04/26/2018 11:00a Wound Care Fitz Leon L89.893 Pressure ulcer Center AT [facility] MD FACS of other site, stage 3 E11.621 Type 2 diabetes mellitus with foot ulcer I73.9 Peripheral vascular disease, unspecified N18.6 End stage renal disease R09.89 Oth symptoms and signs involving the circ and resp systems M21.6x1 Other acquired deformities of right foot Office Visit 01/04/2018 [facility] Fitz Bermudez E11.621 Type 2 diabetes 8:00a AT [facility] MD Carolyn, mellitus with FACS foot ulcer Office Visit 05/18/2017 [facility] Phillip Sampson J96.01 Acute respiratory 8:39a Assocmanuel M.D. failure with Hospitalists hypoxia S91.302A Unspecified open wound, left foot, initial encounter E11.8 Type 2 diabetes mellitus with unspecified complications I10 Essential (primary) hypertension Office Visit 05/17/2017 8:37a E[facility] Phillip Page96.01 Acute respiratory Assocmanuel M.D. failure with Hospitalists hypoxia S91.302A Unspecified open wound, left foot, initial encounter E11.8 Type 2 diabetes mellitus with unspecified complications I10 Essential (primary) hypertension Office Visit 05/16/2017 8:34a Eudora Phillip Page96.01 Acute respiratory Assmanuel alvarez M.D. failure with Hospitalists hypoxia S91.302A Unspecified open wound, left foot, initial encounter E11.8 Type 2 diabetes mellitus with unspecified complications I10 Essential (primary) hypertension Office Visit 05/15/2017 8:33a Eudora Phillip Page96.01 Acute respiratory Assocmanuel M.D. failure with Hospitalists hypoxia S91.302A Unspecified open wound, left foot, initial encounter E11.8 Type 2 diabetes mellitus with unspecified complications I10 Essential (primary) hypertension [facility] J[facility].01 Acute respiratory 8:32a manuel Sosa M.D. failure with Hospitalists hypoxia S91.302A Unspecified open wound, left foot, initial encounter E11.8 Type 2 diabetes mellitus with unspecified complications I10 Essential (primary) hypertension Office Visit 05/13/2017 [facility] Philly Hohn, J96.01 Acute respiratory 8:24a manuel Sosa M.D. failure with Hospitalists hypoxia S91.302A Unspecified open wound, left foot, initial encounter E11.8 Type 2 diabetes mellitus with unspecified complications I10 Essential (primary) hypertension Office Visit 05/12/2017 [facility] Philly Hohn, J96.01 Acute respiratory 8:21a manuel Sosa M.D. failure with Hospitalists hypoxia S91.302A Unspecified open wound, left foot, initial encounter E11.8 Type 2 diabetes mellitus with unspecified complications I10 Essential (primary) hypertension Office Visit 05/11/2017 [facility] Philly Miller, J96.01 Acute respiratory 8:20a manule Sosa M.D. failure with Hospitalists hypoxia S91.302A Unspecified open wound, left foot, initial encounter E11.8 Type 2 diabetes mellitus with unspecified complications I10 Essential (primary) hypertension Office Visit 05/10/2017 10:03a Colin Torres I73.9 Peripheral Medicine Of Real Coelho M.D. vascular disease, unspecified E11.8 Type 2 diabetes mellitus with unspecified complications [facility] J96.01 Acute respiratory 8:19a manuel Sosa M.D. failure with Hospitalists hypoxia S91.302A Unspecified open wound, left foot, initial encounter E11.8 Type 2 diabetes mellitus with unspecified complications I10 Essential (primary) hypertension Office Visit 05/09/2017 8:18a [facility] Chema Dukes J96.01 Acute respiratory Assmanuel alvarez MD failure with Hospitalists hypoxia S91.302A Unspecified open wound, left foot, initial encounter E11.8 Type 2 diabetes mellitus with unspecified complications I10 Essential (primary) hypertension Office Visit 05/09/2017 Orthopedic Shima M86.672 Other chronic 11:40a Services Of VANDANA Harris osteomyelitis, left ankle and foot [facility] J[facility].01 Acute respiratory 8:08a manuel Sosa MD failure with Hospitalists hypoxia S91.302A Unspecified open wound, left foot, initial encounter E11.8 Type 2 diabetes mellitus with unspecified complications I10 Essential (primary) hypertension Office Visit 05/07/2017 7:56a [facility] Chema Dukes, J96.01 Acute respiratory manuel Sosa MD failure with Hospitalists hypoxia S91.302A Unspecified open wound, left foot, initial encounter E11.8 Type 2 diabetes mellitus with unspecified complications I10 Essential (primary) hypertension Office Visit 04/25/2017 [facility] Philly Miller J96.01 Acute respiratory 10:09a manuel Sosa M.D. failure with Hospitalists hypoxia S91.302A Unspecified open wound, left foot, initial encounter E11.8 Type 2 diabetes mellitus with unspecified complications I10 Essential (primary) hypertension Office Visit 04/24/2017 [facility] Philly Miller J96.01 Acute respiratory 10:08a manuel Sosa M.D. failure with Hospitalists hypoxia S91.302A Unspecified open wound, left foot, initial encounter E11.8 Type 2 diabetes mellitus with unspecified complications I10 Essential (primary) hypertension Office Visit 04/23/2017 [facility] Josy Mosquera J96.01 Acute 10:06a manuel Sosa NP respiratory Hospitalists failure with hypoxia S91.302A Unspecified open wound, left foot, initial encounter E11.8 Type 2 diabetes mellitus with unspecified complications I10 Essential (primary) hypertension Office Visit 03/30/2017 2:30p Cardiology William Rocky I34.0 Nonrheumatic mitral Services Of Real Chavez M.D., (valve) AT [facility], FASNC insufficiency I10 Essential (primary) hypertension Z01.810 Encounter for preprocedural cardiovascular examination M86.672 Other chronic osteomyelitis, left ankle and foot Office Visit 02/21/2017 [facility] Ector Spencer E10.69 Type 1 diabetes 2:05p For Infectious Kathy Mcwilliams mellitus with Diseases other specified complication 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 E11.621 Type 2 Assoc,pc Ignacio N.PJoey diabetes Hospitalists mellitus with foot ulcer N18.6 End stage renal disease E11.8 Type 2 diabetes mellitus with unspecified complications I10 Essential (primary) hypertension Office Visit 02/20/2017 7:21a [facility] [place] S. E11.621 Type 2 Assoc,manuel Pierre N.PJoey diabetes Hospitalists mellitus with foot ulcer E11.8 Type 2 diabetes mellitus with unspecified complications N18.6 End stage renal disease I10 Essential (primary) hypertension Office Visit 02/19/2017 7:21a [facility] [place] S. N18.6 End stage Assoc,manuel Pierre N.PJoey renal disease Hospitalists E11.621 Type 2 diabetes mellitus with foot ulcer E11.8 Type 2 diabetes mellitus with unspecified complications I10 Essential (primary) hypertension Office Visit 02/18/2017 7:20a [facility] Philly Miller, N18.6 End stage Assocmanuel M.D. renal disease Hospitalists E11.621 Type 2 diabetes mellitus with foot ulcer E11.8 Type 2 diabetes mellitus with unspecified complications I10 Essential (primary) hypertension Office Visit 02/18/2017 9:37a Orthopedic Services Adrián I96 Gangrene, not Of Isabel Louis M.D. elsewhere classified Office Visit 02/17/2017 7:19a [facility] Julius N18.6 End stage renal Assoc,manuel Avila N.P. disease Hospitalists E11.621 Type 2 diabetes mellitus with foot ulcer E11.8 Type 2 diabetes mellitus with unspecified complications I10 Essential (primary) hypertension Office Visit 01/30/2017 7:34a [facility] Taryn R07.9 Chest pain, Assoc,manuel Monaco M.D. unspecified Hospitalists I50.9 Heart failure, unspecified N18.6 End stage renal disease Z99.2 Dependence on renal dialysis Office Visit 2017 8:03a Eudora Phillip Sampson N17.9 Acute kidney Assoc,manuel Rawls M.D. failure, Hospitalists unspecified E87.5 Hyperkalemia N18.5 Chronic kidney disease, stage 5 E83.39 Other disorders of phosphorus metabolism Office Visit 01/23/2017 8:02a Eudoraalex Sampson N17.9 Acute kidney Assoc,manuel Rawls M.D. failure, Hospitalists unspecified E87.5 Hyperkalemia E83.39 Other disorders of phosphorus metabolism N18.5 Chronic kidney disease, stage 5 Office Visit 01/22/2017 8:00a [facility] Phillip Sampson N17.9 Acute kidney Assocmanuel M.D. failure, Hospitalists unspecified E87.5 Hyperkalemia E83.39 Other disorders of phosphorus metabolism N18.5 Chronic kidney disease, stage 5 Office Visit 01/21/2017 7:51a [facility] Phillip Sampson N17.9 Acute kidney Assocmanuel M.D. failure, Hospitalists unspecified E87.5 Hyperkalemia E83.39 Other disorders of phosphorus metabolism N18.5 Chronic kidney disease, stage 5 Office Visit 01/20/2017 7:50a [facility] Phillip Sampson N17.9 Acute kidney Assoc,manuel Rawls M.D. failure, Hospitalists unspecified N18.5 Chronic kidney disease, stage 5 E87.5 Hyperkalemia E83.39 Other disorders of phosphorus metabolism Office Visit 01/19/2017 [facility] Nitin Licea N17.9 Acute kidney 7:47a Assmanuel alvarez II, M.D. failure, Hospitalists unspecified E87.5 Hyperkalemia N18.5 Chronic kidney disease, stage 5 E83.39 Other disorders of phosphorus metabolism Office Visit 08/26/2015 11:34a Wound Care Simba Chapa M10.079 Idiopathic gout , Center [facility] [place] Kathy Phillip unspecified ankle and foot E11.621 Type 2 diabetes mellitus with foot ulcer M86.671 Other chronic osteomyelitis, right ankle and foot L97.411 Non-prs chr ulcer of right heel and midft lmt to brkdwn skin Office Visit 08/17/2015 2:24p Wound Care Simba Chapa M10.079 Idiopathic gout , Center AT [facility] [place] Kathy Phillip unspecified ankle and foot E11.621 Type 2 diabetes mellitus with foot ulcer M86.671 Other chronic osteomyelitis, right ankle and foot Office Visit 08/10/2015 10:50a [facility] El Spencer Z89.421 Acquired Infectious Kathy Mcwilliams absence of Diseases other right toe(s) L97.519 Non-prs chronic ulcer oth prt right foot w unsp severity Office Visit 07/27/2015 9:30a [facility] Ector Spencer Z89.421 Acquired Infectious Kathy Mcwilliams absence of Diseases other right toe(s) E11.621 Type 2 diabetes mellitus with foot ulcer L97.519 Non-prs chronic ulcer oth prt right foot w unsp severity Office Visit 06/10/2015 10:29a Wound Care Simba Chapa E11.321 Type 2 diab w Center AT [facility] [place] Kathy Phillip 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 ankle and foot Office Visit 04/28/2015 Orthopedic Adrián Quevedo86.671 Other chronic 2:50p Services Of Kathy Louis osteomyelitis, right C.M.A. ankle and foot Office Visit 04/15/2015 Orthopedic Adrián Quevedo86.671 Other chronic 11:15a Services Of Kathy Louis osteomyelitis, right C.M.A. 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 unspecified Hospitalists A41.9 Sepsis, unspecified organism N17.9 Acute kidney failure, unspecified E13.9 Other specified diabetes mellitus without complications [facility] Osteomyelitis, 12:12p manuel Sosa M.D. unspecified Hospitalists A41.9 Sepsis, unspecified organism N17.9 Acute kidney failure, unspecified E13.9 Other specified diabetes mellitus without complications Office Visit 12/18/2014 [facility] Angela, N17.9 Acute kidney 12:11p manuel Sosa M.D. failure, Hospitalists unspecified M76.9 Unspecified enthesopathy, lower limb, excluding foot A41.9 Sepsis, unspecified organism E13.9 Other specified diabetes mellitus without complications Office Visit 12/17/2014 7:52a [facility] Ector Spencer E11.52 Type 2 diabetes [...] disease, stage 3 (moderate) [facility], 12:10p manuel Sosa M.D. unspecified Hospitalists A41.9 Sepsis, unspecified organism N17.9 Acute kidney failure, unspecified E13.9 Other specified diabetes mellitus without complications Office Visit 12/16/2014 Orthopedic Dara M86.9 Osteomyelitis, 7:00a Services Of Isabel Vergara M.D. unspecified Office Visit 12/16/2014 [facility] [place] LairdJoey M86.9 Osteomyelitis, 12:08p manuel Sosa, N.PJoey unspecified Hospitalists A41.9 Sepsis, unspecified organism N17.9 Acute kidney failure, unspecified E13.9 Other specified diabetes mellitus without complications Office Visit 03/18/2013 [facility] Ector Spencer 681.10 Cellulitis & 9:30a For Gregorio Mcwilliams M.D. Abscess Toe Unspec Diseases Office Visit 02/25/2013 [facility] Ector Spencer 730.00 Osteomyelitis Acute 9:30a For Infectious Kathy Mcwilliams Site Unspec Diseases 681.10 Cellulitis & Abscess Toe Unspec Office Visit 02/04/2013 [facility] Ector Spencer 730.00 Osteomyelitis Acute 9:30a For Infectious Kathy Mcwilliams Site Unspec Diseases 588.9 Renal Function Impairment Disorders Unspec Office Visit 2013 11:06a [facility] Taryn 681.10 Cellulitis & Assoc,manuel Monaco M.D. Abscess Toe Hospitalists Unspec 730.00 Osteomyelitis Acute Site Unspec 250.02 Diabetes Mellitus W/O Compl Type II Or Unspec Type Uncontrol 584.5 Acute Kidney Failure With Lesion Of Tubular Necrosis Office Visit 01/23/2013 11:06a [facility] Taryn 681.10 Cellulitis & Assoc,manule Monaco M.D. Abscess Toe Hospitalists Unspec 250.02 Diabetes Mellitus W/O Compl Type II Or Unspec Type Uncontrol 584.5 Acute Kidney Failure With Lesion Of Tubular Necrosis Office Visit 01/22/2013 11:06a [facility] Taryn 681.10 Cellulitis & Assoc,manuel Monaco M.D. Abscess Toe Hospitalists Unspec 250.02 Diabetes Mellitus W/O Compl Type II Or Unspec Type Uncontrol 584.5 Acute Kidney Failure With Lesion Of Tubular Necrosis Office Visit 01/21/2013 11:05a [facility] Trayn 681.10 Cellulitis & Assoc,manuel Monaco M.D. Abscess Toe Hospitalists Unspec 250.02 Diabetes Mellitus W/O Compl Type II Or Unspec Type Uncontrol Office Visit 01/21/2013 [facility] [place] 730.27 Osteomyelitis 9:16a Gregorio Mcwilliams M.D. Unspec Ankle & Diseases Foot Office Visit 01/20/2013 [facility] Philly 681.10 Cellulitis & 11:05a Assoc,manuel Miller M.D. Abscess Toe Unspec Hospitalists 250.02 Diabetes Mellitus W/O Compl Type II Or Unspec Type Uncontrol 584.5 Acute Kidney Failure With Lesion Of Tubular Necrosis Office Visit 01/19/2013 [facility] Angela, 681.10 Cellulitis & 11:05a manuel Sosa M.D. Abscess Toe Hospitalists Unspec 250.02 Diabetes Mellitus W/O Compl Type II Or Unspec Type Uncontrol 584.5 Acute Kidney Failure With Lesion Of Tubular Necrosis [facility]itis & 11:04a manuel Sosa M.D. Abscess Toe Hospitalists Unspec 250.02 Diabetes Mellitus W/O Compl Type II Or Unspec Type Uncontrol 584.5 Acute Kidney Failure With Lesion Of Tubular Necrosis Office Visit 01/17/2013 11:04a [facility] [place] Tsang 681.10 Cellulitis & Assoc,manuel Pierre N.PJoey Abscess Toe Hospitalists Unspec 250.02 Diabetes Mellitus W/O Compl Type II Or Unspec Type Uncontrol 584.5 Acute Kidney Failure With Lesion Of Tubular Necrosis Office Visit 01/16/2013 [facility] Kidney manuel Sosa M.D. Failure With Hospitalists Lesion Of Tubular Necrosis 681.10 Cellulitis & Abscess Toe Unspec 250.02 Diabetes Mellitus W/O Compl Type II Or Unspec Type Uncontrol Office Visit 01/16/2013 [facility] Spencer 730.27 Osteomyelitis 2:16p Gregorio Mcwilliams M.D. Unspec Ankle & Diseases Foot Office Visit 01/15/2013 [facility] 584.5 Acute Kidney 11:03a manuel Sosa M.D. Failure With Hospitalists Lesion Of Tubular Necrosis 681.10 Cellulitis & Abscess Toe Unspec 250.02 Diabetes Mellitus W/O Compl Type II Or Unspec Type Uncontrol 995.92 Severe Sepsis Office Visit 01/15/2013 [facility] [place] 730.27 Osteomyelitis 12:10p Gregorio Mcwilliams M.D. Unspec Ankle & Diseases Foot Office Visit 01/14/2013 [facility] 995.92 Severe Sepsis 11:03a manuel Sosa M.D. Hospitalists 681.10 Cellulitis & Abscess Toe Unspec 250.02 Diabetes Mellitus W/O Compl Type II Or Unspec Type Uncontrol 584.5 Acute Kidney Failure With Lesion Of Tubular Necrosis Office Visit 01/13/2013 11:02a [facility] Philly Miller, 995.92 Severe Sepsis manuel Sosa M.D. Hospitalists 681.10 Cellulitis & Abscess Toe Unspec 250.02 Diabetes Mellitus W/O Compl Type II Or Unspec Type Uncontrol 584.5 Acute Kidney Failure With Lesion Of Tubular Necrosis Office Visit 06/06/2009 12:15a [facility] Zain 250.00 Diabetes Assmanuel alvarez M.D. Mellitus W/O Hospitalists Compl Type II Or Unspec Controlled 730.20 Osteomyelitis Unspec Site Unspec 401.9 Hypertension Unspec [facility] Diabetes manuel Sosa M.D. Mellitus W/O Hospitalists Compl Type II Or Unspec Controlled Office Visit 06/04/2009 [facility] Diabetes manuel Sosa M.D. Mellitus W/O Hospitalists Compl Type II Or Unspec Controlled 593.9 Kidney & Ureter Disorders Unspec Office Visit 06/02/2009 [facility], 730.20 Osteomyelitis 12:15a manuel Sosa M.D. Unspec Site Unspec Hospitalists 250.00 Diabetes Mellitus W/O Compl Type II Or Unspec Controlled Office Visit 06/01/2009 [facility], 730.20 Osteomyelitis 12:15a manuel Sosa M.D. Unspec Site Unspec Hospitalists Office Visit 05/31/2009 [facility], 730.20 Osteomyelitis 4:00a manuel Sosa M.D. Unspec Site Unspec Hospitalists Plan of Treatment Future Appointment(s):06/12/2018 2:00 pm - William Chavez M.D., [facility], [facility] at [facility]06/11/2018 10:00 am - Traveling ECHO 1 at [facility]06/20/2018 1:40 pm - Ector Mcwilliams M.D. at [facility]/22/2019 - Ector Mcwilliams M.D.M86.271 Subacute osteomyelitis, right ankle and footComments:continue doxy twice daily and augmentin will decrease to once daily for ESRD and may help the diarrheaFollow up:3 dsfjqI25.40 Type 2 diabetes mellitus with diabetic neuropathy, unspR19.7 Diarrhea, unspecifiedComments:abx related, not [id number] Adverse effect of penicillins, initial encounter
--- NOTE | 2018-07-01 09:55 | ED ---
Altered Mental Status - HPI Summary HPI Summary: Patient is a 53 y/o M presenting to ED via EMS with complaints of AMS. Girlfriend is present in the room. Girlfriend states that the patient was appropriate this morning, walking and talking at baseline. Patient is on dialysis, had an appointment today. While they were going to dialysis unit, patient became fatigued and dizzy, patient was placed in wheelchair. At dialysis unit, patient progressively became more altered and somnolent, girlfriend reported that the patient's presentation of AMS lasted around 45 minutes. Clinical assessment team was called, Dr. Miller and Dr. Johnson reviewed patient. He was given 500 ml bolus of NS with HD and labs, patient was instructed to go to ED after dialysis. EMS notes that patient was bradycardic but patient claims that he is bradycardic at baseline. PMHx of end stage renal disease, diabetes type 2. Girlfriend notes that the patient took 2 Tylenol tablets this morning and it is possible that the patient took two ASA this morning. He denies street drug usage, states that he only takes Tylenol and ibuprofen for pain. SOB is denied. Girlfriend notes that the patient has a diabetic ucler on his foot that had "popped open" last night. She also states that the patient was seen in ED within the past few weeks for altered mental status as well, patient was admitted and noted to have high ammonia and high liver function enzymes, she claims that the patient is being considered for liver transplant workup. No Hx of alcohol abuse issues is noted. Nothing is noted to aggravate/alleviate Sx. Home medications, allergies, and nurse's notes are reviewed. - History Of Current Complaint Stated Complaint: AMS PER EMS Hx Obtained From: Patient, EMS, Other: - girlfriend Onset/Duration: Still Present Timing: Constant, Lasting Minutes - 45 minutes Character: Responsiveness - somnolent Aggravating Factor(s): Nothing Alleviating Factor(s): Nothing Associated Signs And Symptoms: Positive: Dizziness - Allergies/Home Medications Allergies/Adverse Reactions: Allergies Allergy/AdvReac Type Severity Reaction Status Date / Time No Known Allergies Allergy Verified 06/21/18 16:10 PMH/Surg Hx/FS Hx/Imm Hx Endocrine/Hematology History: Reports: Hx Diabetes, Hx Anemia - WAS TRANSUSED LAST HOSP Denies: Hx Anticoagulant Therapy, Hx Thyroid Disease Cardiovascular History: Reports: Hx Angina - "tightness", "like congestion", Hx Hypercholesterolemia, Hx Hypertension, Other Cardiovascular Problems/Disorders - HIGH CHOLESTEROL Denies: Hx Congestive Heart Failure, Hx Coronary Artery Disease, Hx Deep Vein Thrombosis, Hx Myocardial Infarction, Hx Pacemaker/ICD, Hx Valvular Heart Disease Respiratory History: Reports: Hx Asthma - WAS IN HOSP FEB 2017, Hx Seasonal Allergies Denies: Hx Chronic Obstructive Pulmonary Disease (COPD), Hx Lung Cancer GI History: Denies: Hx Gall Bladder Disease, Hx Gastrointestinal Bleed, Hx Ulcer, Hx Urosepsis History: Reports: Hx Dialysis, Hx Renal Disease Denies: Hx Kidney Stones, Other Problems/Disorders - end stage renal disease Musculoskeletal History: Reports: Hx Arthritis - HANDS, Hx Gout, Other Musculoskeletal History - right toes amputated Denies: Hx Osteoporosis Sensory History: Reports: Hx Contacts or Glasses - GLASSES, Hx Vision Problem Denies: Hx Cataracts, Hx Glaucoma, Hx Hearing Aid Opthamlomology History: Reports: Hx Contacts or Glasses - GLASSES, Hx Vision Problem Denies: Hx Cataracts, Hx Glaucoma Neurological History: Denies: Hx CVA, Hx Dementia, Hx Migraine, Hx Seizures, Hx Transient Ischemic Attacks (TIA) Psychiatric History: Reports: Hx Depression - DUE TO WIFES Denies: Hx Anxiety, Hx Attention Deficit Hyperactivity Disorder, Hx Eating Disorder, Hx Panic Disorder, Hx Post Traumatic Stress Disorder, Hx Inpatient Treatment, Hx Community Mental Health Tx, Hx Schizophrenia, Hx Bipolar Disorder , Hx Suicide Attempt, Hx of Violent Episodes Against Others, Hx Substance Abuse , Other Psychiatric Issues/Disorders - Surgical History Surgery Procedure, Year, and Place: left second toe amputation 2009. Left ankle ORIF. RIGHT GREAT TOE AMPUTATION 2012, ALL OTHER TOES AMPUTATED 12/2014. HERNIA A CHILD. dialysis catheter. Hx Anesthesia Reactions: No Infectious Disease History: Reports: Hx Shingles - HAD 8 YEAS AGO Denies: Hx Clostridium Difficile, Hx Hepatitis, Hx Human Immunodeficiency Virus (HIV), Hx of Known/Suspected MRSA, Hx Tuberculosis, History Other Infectious Disease - Family History Known Family History: Positive: Hypertension, Diabetes - Social History Alcohol Use: None Hx Substance Use: No Substance Use Type: Reports: None Hx Tobacco Use: No Smoking Status (MU): Never Smoked Tobacco Have You Smoked in the Last Year: No Review of Systems Constitutional: Other - POSITIVE - SOMNOLENT Positive: Fatigue Negative: Shortness Of Breath Neurological: Other - POSITIVE - DIZZINESS, ALTERED MENTAL STATUS All Other Systems Reviewed And Are Negative: Yes Physical Exam - Summary Physical Exam Summary: Appearance: no pain distress, somnolent Skin: warm, dry, reflects adequate perfusion Head/face: normal Eyes: EOMI, LAW; pupils are midrange ENT: mucous membranes moist Neck: supple, non-tender Respiratory: CTA, breath sounds present Cardiovascular: bradycardia with systolic murmur, pulses symmetrical Abdomen: non-tender, soft; LUQ fistula Bowel Sounds: present Musculoskeletal: strength/ROM intact; callous wound at plantar of right foot, toes are amputated. There is no dried blood in sock but no active drainage Neuro: normal, sensory motor intact, A&Ox3 Triage Information Reviewed: Yes Vital Signs On Initial Exam: Initial Vitals Resp BP 10 114/57 07/01/18 09:49 07/01/18 09:49 Vital Signs Reviewed: Yes Diagnostics - Laboratory Result Diagrams: 07/01/18 10:01 07/01/18 10:01 Lab Statement: Any lab studies that have been ordered have been reviewed, and results considered in the medical decision making process. - CT brain ct CT Interpretation Completed By: Radiologist Summary of CT Findings: IMPRESSION: No intracranial mass or hemorrhage is noted. THIS REPORT WAS REVIEWED BY DR. ALBERTS. - EKG 1001 Cardiac Rate: Bradycardia - rate of 45 BPM EKG Rhythm: Sinus Bradycardia ST Segment: Non-Specific Ectopy: PVCs Summary of EKG Findings: EKG showed sinus bradycardia with rate of 45 BPM, PVCs , normal axis, non-specific ST, prolonged QTc. Altered Mental Statu Course/Dx - Course Course Of Treatment: Nurse's notes reviewed. Patient presents with delirium/ somnolence thought to be associated with hepatic encephalopathy. He was recently admitted for similar. He has had chronic diarrhea which was felt to have exacerbated it causing a shock liver condition. His blood pressures were low at dialysis this morning and this seems to if worsened his mental status. It is possible that he was hyperperfused, especially to his liver however his ammonia level at this point is not elevated. His LFTs are much improved over previous. He was hydrated here and his electrolytes replaced, most especially his low potassium. I discussed the case at length with the hospitalist team who is well aware of him, stating that he sometimes gets like this. There is no evidence for infection and so lumbar puncture was not performed at this point. He will be admitted to the ICU for electrolyte replacement, monitoring and further evaluation. Patient's heart rate remains in the 40s despite atropine. There are less PVCs present now after the atropine. - Diagnoses Differential Diagnosis/HQI/PQRI: Hypoglycemia, Hypothermia, Hypoxia, Intoxication, Intracranial Bleed, Meningitis, Metabolic Disorder, Overdose, Sepsis Provider Diagnoses: Metabolic encephalopathy, Hyperkalemia, ESRD on dialysis - Provider Notifications Discussed Care Of Patient With: Philly Miller Time Discussed With Above Provider: 11:56 Instructed by Provider To: Other - Patient's case was discussed with Dr. Miller, Dr. Miller asks not to do LP, will admit patient. - Critical Care Time Critical Care Time: 30-74 min - 30 minutes CCT; CCT is EXCLUSIVE of separately billable procedures. Discharge - Sign-Out/Discharge Documenting (check all that apply): Patient Departure - admit Patient Received Moderate/Deep Sedation with Procedure: No - Discharge Plan Condition: Critical Disposition: ADMITTED TO [facility] - Billing Disposition and Condition Condition: CRITICAL Disposition: Admitted to [facility] - Attestation Statements Document Initiated by Stivenibjason: Yes Documenting Scribe: PANCHO VANCE Provider For Whom Giovanna is Documenting (Include Credential): VLADIMIR ALBERTS MD Scribe Attestation: IPANCHO, scribed for VLADIMIR ALBERTS MD on 07/01/18 at 1402. Scribe Documentation Reviewed: Yes Provider Attestation: The documentation as recorded by the PANCHO peoples accurately reflects the service I personally performed and the decisions made by me, VLADIMIR ALBERTS MD Status of Scribe Document: Viewed
[2018-07-01] MEDS ORDERED: NS 0.9% 500 ML* 500 ML IV ONE (10:09)
[2018-07-01] MEDS ORDERED: Magnesium Sulfate 1 GM IV* 1 GM/100 ML BAG IV ONE (10:09)
[2018-07-01 10:26] LABS: ABS Basophils 0 10^3/ul (0-0.2); ABS Eosinophils 0.1 10^3/ul (0-0.6); ABS Lymphocytes 1.6 10^3/ul (1.0-4.8); ABS Monocytes 0.3 10^3/ul (0-0.8); ABS Neutrophils 2.9 10^3/ul (1.5-7.7); ABS Nucleated RBC 0 10^3/ul; Eosinophil % 2.7 %; Hematocrit 26 % (36-46); Hemoglobin 8.8 g/dL (14.0-18.0); Lymphocyte % 32.8 %; Mean Corpuscular HGB Conc 34 g/dL (31-36); Mean Corpuscular Hemoglobin 35 pg (27-31); Mean Corpuscular Volume 105 fL (80-94); Mean Platelet Volume 8.7 fL (7.4-10.4); Nucleated Red Blood Cells % 0.1; Platelet Count 165 10^3/uL (150-450); Red Cell Distribution Width 20 % (10.5-15)
[2018-07-01 10:32] LABS: ALT 23 U/L (7-52); AST 19 U/L (13-39); Albumin 3.3 g/dL (3.2-5.2); Albumin/Globulin Ratio 1.1 (1-3); Alkaline Phosphatase 120 U/L (34-104); BUN/Creatinine Ratio 3.2 (8-20); Blood Urea Nitrogen 14 mg/dL (6-24); CO2 Carbon Dioxide 37 mmol/L (22-32); Calcium 7.5 mg/dL (8.6-10.3); Chloride 91 mmol/L (101-111); EGFR African American 16.9 (>60); Globulin 3.1 g/dL (2-4); Glucose 169 mg/dL (70-100); Sodium 135 mmol/L (135-145); Total Protein 6.4 g/dL (6.4-8.9)
[2018-07-01 10:38] LABS: Anion Gap 7 mmol/L (2-11); Potassium 2.4 mmol/L (3.5-5.0)
[2018-07-01] MEDS ORDERED: Calcium Gluconate INJ* 1 GM in NS 0.9% 100 ML* 100 ML IVPB ONE (10:43)
[2018-07-01 11:05] LABS: Acetaminophen < 15 mcg/mL
[2018-07-01] MEDS ORDERED: NS 0.9% 100 ML* 100 ML ONE (11:30)
[2018-07-01 12:16] LABS: C Reactive Protein 11.19 mg/L (<8.01)
[2018-07-01] MEDS ORDERED: Atropine SYRINGE* 0.1 MG/ML 10 ML SYRINGE (1 MG) IV PUSH ONE (12:29)
[2018-07-01] MEDS: KCL 10 MEQ/50 ML IVPREMIX* 10 MEQ/50 ML BAG IV SCH ×2 (12:31→14:49)
[2018-07-01] MEDS ORDERED: NS 0.9% 1000 ML** 1,000 ML IV ONE (12:48)
[2018-07-01 12:51] LABS: TSH (Thyroid Stimulating Horm) 1.23 mcIU/mL (0.34-5.60)
[2018-07-01] MEDS ORDERED: KCL 20 MEQ/100 ML IVPREMIX* 20 MEQ/100 ML BAG IV SCH (13:00)
[2018-07-01] MEDS ORDERED: Vancomycin(*) 1,000 MG in NS 0.9% 250 ML* 250 ML IVPB ONE (13:00)
[2018-07-01] MEDS ORDERED: oxyCODONE TAB* 5 MG TAB PO PRN (13:10)
[2018-07-01] MEDS ORDERED: Morphine 4 MG/ML VIAL (1 ml) 4 MG/ML VIAL IV PRN (13:49)
[2018-07-01] MEDS ORDERED: Dextrose 50% Syringe 50 ML* 25 GM/50 ML SYRINGE IV PUSH PRN (13:52)
[2018-07-01] MEDS: cefTRIAXone(*) 1 GM in NS 0.9% 50 ML* 50 ML IVPB SCH ×3 (14:24→15:29)
[2018-07-01] MEDS ORDERED: Perflutren Lipid Microsphere* 3 ML VIAL ONE (15:07)
[2018-07-01] MEDS: KCL 20 MEQ/100 ML IVPREMIX* 20 MEQ/100 ML BAG IV SCH ×3 (15:25→19:33)
--- NOTE | 2018-07-01 16:07 | ECHO ---
Patient: KATY LATHAM Rec#: [id number] : 1965 Date: 07/01/2018 Age: 53y Height: 173 cm / 68.1 in Weight: 116 kg / 255.7 lbs Sex: M BSA: 2.27 Room#: ICU 10 Admit Date#: 07/01/2018 Type: Inpatient Referring: MARY SCHMITT Reading: Mohit Tejada MD Die Mounter: Rosanna Cheney,RDCS,RDMS CC: Leyt Vasquez Transthoracic Echocardiogram Indication: ABN EKG BP: 135/80 HR: 48 Rhythm: Bradycardia Findings History: HTN, HLD, DM, AOV stenosis, ESRD Technical Comments: The study quality is fair. Left Ventricle: The left ventricular chamber size is mildly dilated. Moderate concentric left ventricular hypertrophy is observed. There is mildly decreased left ventricular systolic function. The estimated ejection fraction is 40-45%. The assessment of diastolic function is non-diagnostic. The patient was unable to perform a Valsalva maneuver. Left Atrium: The left atrium is mildly dilated. Right Ventricle: The right ventricle is mildly dilated. The right ventricular global systolic function is normal. Right Atrium: The right atrial cavity size is normal. Aortic Valve: The aortic valve leaflets are moderately thickened. Systolic excursion of the aortic valve cusps is reduced. There is no evidence of aortic regurgitation. There is moderate to severe aortic stenosis. The mean gradient of the aortic valve is 26 mmHg. The aortic valve area, by peak velocities, is calculated at 0.8 cm2. The highest aortic valve velocity was obtained with the standard probe from the A3C view. Mitral Valve: There is mitral annular calcification. The mitral valve leaflets are mildly thickened. There is mild mitral regurgitation. There is borderline mitral stenosis. Tricuspid Valve: The tricuspid valve leaflets are normal. There is mild tricuspid regurgitation. No pulmonary hypertension is noted. Pulmonic Valve: There is no evidence of pulmonic valve thickening. There is a trace pulmonic regurgitation. Pericardium: There is no significant pericardial effusion. Aorta: The aortic root appears normal. There is no dilatation of the aortic arch. Pulmonary Artery: The main pulmonary artery is not well visualized. Venous: The inferior vena cava is dilated. There is less than 50% respiratory change in the inferior vena cava dimension. Contrast: Definity was used to optimize study. A total of 2 ml was used. Conclusions Moderate concentric left ventricular hypertrophy is observed. There is mildly decreased left ventricular systolic function. The estimated ejection fraction is 40-45%. The assessment of diastolic function is non-diagnostic. The right ventricular global systolic function is normal. There is no evidence of aortic regurgitation. Systolic excursion of the aortic valve cusps is reduced. There is moderate to severe aortic stenosis. The mean gradient of the aortic valve is 26 mmHg. The aortic valve area, by peak velocities, is calculated at 0.8 cm2. There is mild mitral regurgitation. There is mild tricuspid regurgitation. No pulmonary hypertension is noted. There is no significant pericardial effusion. Compared to study of01/30/17, the LV funciton is lower and the degree of is much worse Measurements Name Value Normal Range RVIDd (AP) 2D 3.4 cm (0.9 - 2.6) RVDdMajor (2D) 4.2 cm (2.2 - 4.4) RAd ISD 4CH 5.2 cm (3.4 - 4.9) RA (A4C)W 4.1 cm (2.9 - 4.6) IVSd (2D) 1.6 cm (0.6 - 1) LVPWd (2D) 1.7 cm (0.6 - 1) LVIDd (2D) 5.5 cm (3.6 - 5.4) LVIDs (2D) 4.3 cm - LV FS (2D) 22 % (25 - 45) Aortic Annulus 2 cm (1.4 - 2.6) Ao root diameter (2D) 2.9 cm (2.1 - 3.5) Ascending Ao 3.3 cm (2.1 - 3.4) Aortic arch 2.4 cm (1.8 - 3.4) LA dimension (AP) 2D 5.2 cm (2.3 - 3.8) LAd ISD 4CH 5.1 cm (2.9 - 5.3) LA ISD 4CH W 5.4 cm (2.5 - 4.5) Name Value Normal Range LA ESV BP (A/L) index 90 ml/m2 - Name Value Normal Range MV E-wave Vmax 1.3 m/sec - MV deceleration time 296 msec - MV A-wave Vmax 0.8 m/sec - MV E:A ratio 1.6 ratio - LV septal e' Vmax 0.06 m/sec - LV lateral e' Vmax 0.07 m/sec - LV E:e' septal ratio 21 ratio - LV E:e' lateral ratio 19 ratio - Name Value Normal Range AV Vmax 3.7 m/sec - AV VTI 82 cm - AV peak gradient 54 mmHg - AV mean gradient 26 mmHg - LVOT diameter 2 cm - LVOT Vmax 0.9 m/sec - LVOT VTI 22 cm - LVOT peak gradient 3.2 mmHg - LVOT mean gradient 2 mmHg - DOI (VTI) 0.3 ratio - BETSY (continuity Vmax) 0.8 cm2 - BETSY (continuity VTI) 0.8 cm2 - Name Value Normal Range MV Vmax 1.5 m/sec - MV VTI 53 cm - MV peak gradient 9 mmHg - MV mean gradient 2 mmHg - MV PHT 101 msec - MVA (PHT) 2.2 cm2 - MVA (continuity VTI) 1.3 cm2 - Name Value Normal Range TR Vmax 2.1 m/sec - TR peak gradient 17 mmHg - RAP 8 mmHg - RVSP 25 mmHg - IVC diameter 2.9 cm - Name Value Normal Range PV Vmax 0.6 m/sec - PV peak gradient 1.4 mmHg -
[2018-07-01] MEDS: Heparin VIAL(*) 5000 UNITS/ML VIAL (FIVE THOUSAND) SUBCUT SCH ×2 (16:27→22:30)
--- NOTE | 2018-07-01 16:32 | HP ---
CC: Dr. Sreekanth Johnson * HISTORY AND PHYSICAL: DATE OF ADMISSION: 07/01/18 PROVIDER: VANDANA Knapp ATTENDING PHYSICIAN: Dr. Philly Miller * (dictated by VANDANA Knapp). PRIMARY CARE PROVIDER: VANDANA Carrasco [employer] MANAGER: Dr. Sreekanth Johnson. HISTORY OF PRESENT ILLNESS: Sreekanth Singletary is a 53-year-old white man with past medical history significant for end-stage renal disease, on hemodialysis; diabetes mellitus type 2; chronic osteomyelitis to the right foot, who was brought to the emergency department after becoming altered at outpatient dialysis. He was brought to the emergency department via EMS after developing altered mental status at outpatient dialysis today. Because the patient is quite unresponsive, his girlfriend, Larissa, who is his healthcare proxy, is providing much of the history today. She reports that this morning he was fatigued on the drive to dialysis, but was otherwise acting as his normal self. He was alert and oriented and answering questions appropriately and behaving as his baseline. He did report feeling dizzy on his transition from the parking lot to dialysis center, which she reports is not abnormal for him, so they decided to use a wheelchair to bring him into the dialysis center. At the dialysis center, his blood pressure was found to be in the 90s systolic and it is of note that his baseline systolic blood pressure is 180 to 200. Shortly after he became lethargic and a clinical assessment team was called. Labs were drawn and this included blood cultures. The patient remained mostly unresponsive during his transport to the emergency department for evaluation. His girlfriend states that for the last several days the patient has been feeling well without complaints. No headache, fever, chills, nausea, or vomiting. It is of note the patient has had chronic diarrhea for the last several weeks, though for the last week, his stools have become formed twice a day. However, he did experience 6 episodes of diarrhea yesterday. No bright red blood in the toilet. Other than the reports of dizziness this morning, the patient had no additional complaints according to the girlfriend. ED COURSE: When the patient arrived to the emergency department, his heart rate was 63, respiratory rate 10, blood pressure 114/57, oxygen saturation 90% on room air, temperature 97.6 degrees Fahrenheit. The patient received a liter normal saline, 0.04 mg IV Narcan and then 2 mg IV Narcan without response. The patient additionally was given atropine by ED provider due to the patient's bradycardia. The patient additionally received 10 mEq IV potassium and 1 g IV calcium gluconate and 1 g of magnesium sulfate. The patient remained unresponsive; therefore, the hospitalists were asked to evaluate the patient for admission. PAST MEDICAL HISTORY: 1. End-stage renal disease, on hemodialysis. 2. Diabetes mellitus type 2. 3. Chronic osteomyelitis of right foot. 4. Hypertension. 5. Mitral regurgitation. 6. Gout. 7. Anemia. PAST SURGICAL HISTORY: Hernia repair, bilateral transmetatarsal amputations, ORIF of left ankle, skin graft to right heel. HOME MEDICATIONS: 1. Simvastatin 10 mg p.o. daily. 2. Omeprazole 20 mg p.o. b.i.d. 3. Sertraline 150 mg p.o. daily. 4. Metoprolol tartrate 50 mg p.o. b.i.d. 5. Lisinopril 10 mg p.o. at bedtime. 6. Fluticasone nasal spray 2 sprays both nares daily. 7. Oxycodone 5 mg p.o. q.6 hours p.r.n. pain. 8. Vitamin B complex 1 cap p.o. daily. 9. Rifaximin 550 mg p.o. b.i.d. 10. Loperamide 2 mg p.o. q.6 hours p.r.n. diarrhea. 11. Lactobacillus acidophilus 2 tabs p.o. daily. 12. Ferric citrate 420 mg p.o. t.i.d. with meals. 13. Cinacalcet 60 mg p.o. daily. ALLERGIES: No known drug allergies. FAMILY HISTORY: Father of liver cancer in his 70s. Father with a history of [place]. SOCIAL HISTORY: The patient's girlfriend denies smoking history and current alcohol use. He lives with his girlfriend, Larissa Quiñones, who is his healthcare proxy. Her phone number is [phone]. PHYSICAL EXAMINATION GENERAL: Obese white male, lying in hospital bed, appearing obtunded; girlfriend at bedside; girlfriend's sister at bedside. HEENT: Head: Normocephalic, atraumatic. Eyes: The patient does not open his eyes to pain, though pupils are equal and reactive to light. Sclerae anicteric. ENT: Mucous membranes are moist. NECK: Supple, without JVD. LUNGS: Lungs are clear to auscultation anteriorly. CARDIO: Heart rate approximately 45 beats per minute. Regular rhythm. Grade 3 systolic murmur on auscultation. ABDOMEN: Abdomen is obese, soft, nondistended without masses or hepatosplenomegaly. No guarding. The patient does not respond to abdomen palpation. EXTREMITIES: Bilateral TMA, wound to right foot stump approximately 1.5 cm with eschar that has been de-roofed on the lateral aspect. No purulent drainage with expression. +1 pitting edema pretibially bilaterally. No cyanosis or clubbing. NEURO: The patient is not alert. At times, he does awaken to sternal rub with name calling and is oriented to self, otherwise not oriented, very difficult to arouse with sternal rub. The patient does withdraw to pain stimulus in all extremities. SKIN: Warm, dry. No rashes. DIAGNOSTIC STUDIES/LAB DATA: EKG on 07/01/18, heart rate 45 beats per minute, QT 652, occasional PVCs. No ST elevation or depression. QT from EKG on was recorded as 531. Brain CT on 07/01/18, impression, no intracranial mass or hemorrhage is noted. White blood cell count 5, hemoglobin 8.8, hematocrit 26, platelets 165. Sodium 135, potassium 2.4, chloride 91, carbon dioxide 37, anion gap 7. BUN 14, creatinine 4.43. Glucose 169. Calcium 7.5, lactic acid 1.6, magnesium 2. Ammonia 45. Alk phos 120, ALT 23, AST 19, total bili 0.70. Venous blood gas, pH 7.47, pCO2 of 53, pO2 55, HCO3 34.6, O2 sat 89.33, base excess 12.7. ASSESSMENT AND PLAN: Sreekanth Singletary is a 53-year-old white male with end- stage renal disease, on hemodialysis; diabetes mellitus type 2; chronic osteomyelitis, who presents to the EMS from dialysis due to altered mental status and relative hypotension. The patient will be admitted inpatient to the ICU for: 1. Altered mental status likely related to hypoperfusion. The patient's normal blood pressure is usually 180 to 200 systolics and found today to be less than 90 systolic and in the emergency department frequently in the low 100s systolic. The patient has received 1 L fluid bolus and a maintenance fluid of 100 mL per hour will be initiated after completion. Additional differentials include meningitis and seizure; however, this is low on the differential. The possibility of meningitis is specially low considering the CRP is 11.19. Cause of the hypoperfusion may be related to sepsis, possibly related to chronic osteomyelitis which will be discussed further below. Blood cultures were obtained at the clinical assessment team. EEG ordered and q.1 hour neuro checks. The patient will be admitted to the ICU and Dr. Sathya Cazares has been consulted, his input is appreciated. 2. Hypokalemia and metabolic alkalosis. During the patient's most recent admission earlier this month, the patient was experiencing chronic diarrhea with an unknown etiology. There was consideration for potential outpatient colonoscopy, which has not been completed. The patient's stools were improving. However was with 6 episodes of diarrhea yesterday according to his girlfriend. This is likely cause of hypokalemia today. The patient has began receiving potassium chloride IV replacement in the emergency department and his BMP will be rechecked and additional potassium will be repleted. 3. Diarrhea. During the patient's last admission, his C. diff test was negative. We will retest this again. Likely the cause of his hypokalemia as previously discussed. Although the patient is too altered to take p.o. medicine at this time, consider loperamide for diarrhea in the future. Once the patient is hemodynamically stable, a GI consult to further investigate etiology of diarrhea with colonoscopy would be reasonable. 4. History of chronic osteomyelitis. On 06/13/18 during the patient's last admission, MRI of right lower extremity demonstrated fluid collection surrounding third metatarsal consistent with osteomyelitis. At this time, Dr. Mcwilliams did not recommend further treatment. Given that this is possibly a source of bacteremia that may be leading to sepsis causing his current altered mental status, we will treat this osteomyelitis as if it were acute giving empiric antibiotics. IV ceftriaxone 1 g has been initiated and 1 g of IV vancomycin which will be further managed by pharmacy. The patient takes oxycodone at home for pain management and this has been continued. However, the patient is not currently able to take p.o. medicines given his altered mental status and IV morphine will be ordered in case the patient develops signs of pain. 5. History of transaminitis. During the patient's last hospitalization, it was suspected that the etiology of his transaminitis was ischemic liver due to fluid loss secondary to diarrhea. As the patient is again presenting with hypotension and diarrhea, it is expected that transaminitis may occur again and LFTs will be checked daily during his admission. 6. Bradycardia. New bradycardia on presentation. This is likely secondary to QT prolongation which has been caused by hypokalemia. The patient will be admitted on telemetry in the ICU. TSH has been checked, which is within normal limits. Transthoracic echo has been ordered as well as troponin. 7. Anemia. The patient does have chronic anemia. His hemoglobin is currently at his baseline. During his prior admission, he was tested for hemochromatosis and this was found to be negative. Continue to monitor especially considering the patient does have prior history of GI bleed. 8. End-stage renal disease. The patient's creatinine is currently within his baseline. We will continue his hemodialysis per his normal schedule Sunday, Sunday and Sunday. 9. Diabetes mellitus type 2. Glucose is within acceptable range at admission. The patient is diet controlled at home and this will continue. Ordered fingersticks a.c. and h.s. and lispro sliding scale has been ordered. 10. Chronic condition of hypertension. Given the settings of the patient's relative hypotension, his home metoprolol and lisinopril has been held and we will continue to monitor. 11. FEN: Maintenance normal saline fluids 100 mL per hour have been ordered as previously mentioned. Hypokalemia described above. The patient is currently n.p.o. given he is quite obtunded. When his mental status improves, a carb consistent diet can be ordered. 11. DVT prophylaxis. The patient has end-stage renal disease and will be started on heparin subcu t.i.d. 12. Full code status. The patient does have a prior MOLST indicating DNR/DNI. However, please note that the patient is altered on presentation today and his healthcare proxy, Larissa Quiñones, would like to make the patient FULL CODE. Full code order has been placed for clarification. TIME SPENT: Approximately 60 minutes was spent on this admission, approximately half of this time was spent at bedside. This case has been reviewed by my attending, Dr. Philly Miller, who additionally has assessed the patient. She agrees with this assessment and plan of care. VANDANA KNAPP [id number]/[facility] #: [id number] CRESCENCIO
[2018-07-01] MEDS: FERRIC CITRATE 210 MG PO SCH (16:58)
[2018-07-01] MEDS: Insulin LISPRO* 1 UNITS UNIT SUBCUT SCH ×2 (16:58→22:19)
[2018-07-01] MEDS: CMCS:Simvastatin TAB(NF) 10 MG TAB PO SCH (17:57)
[2018-07-01 19:02] LABS: Troponin I 0.05 ng/mL (<0.04)
[2018-07-01] MEDS: NS 0.9% 1000 ML** 1,000 ML IV SCH (19:35)
[2018-07-01 20:05] LABS: Calcium 7.5 mg/dL (8.6-10.3); EGFR African American 13.7 (>60); EGFR Non-African American 11.3 (>60); Potassium 3.3 mmol/L (3.5-5.0)
[2018-07-01 20:07] LABS: Troponin I 0.03 ng/mL (<0.04)
--- NOTE | 2018-07-01 21:55 | PN ---
Progress Note - Progress Note Date of Service: 07/01/18 Note: Patient with brief episode of unresponsiveness. Woke with sternal rub. Now alert and oriented but remains lethargic, falling asleep during my encounter. Will check glucose and ABG
--- NOTE | 2018-07-01 21:59 | CONS ---
CC: Dr. Sreekanth Johnson; VANDANA Velez; Dr. Ector Mcwilliams; Dr. Leon.* CONSULTATION REPORT: DATE OF CONSULT: 07/01/18 REASON FOR CONSULT: Altered mental status. HISTORY OF PRESENT ILLNESS: Mr. Singletary is a 53-year-old gentleman with a history of type 2 diabetes with bilateral distal foot amputations, history of osteomyelitis in the right foot, followed by Dr. Mcwilliams. He has had extensive IV antibiotics. He has end-stage renal disease, on hemodialysis for 2 + years, history of hypertension chronically, recently started on metoprolol and lisinopril, history of high cholesterol. The patient is unable to give me much history today, but luckily his girlfriend is at the bedside who was able to provide supplemental information. In addition, I spoke with about the patient as well. The patient had an extensive hospitalization back in late May, early June. At that time, he was having some diarrhea since December, became very pale, went to Dr. Leon's office and became very confused, was subsequently sent to the ER, was not acting himself, repeating questions. CT scan of the brain done initially showed no acute changes. He had the following tests done during that hospitalization. 1. CT of the brain dated 06/07/18, no acute intracranial pathology. 2. Foot x-ray 06/07/18, status post transmetatarsal amputation. This is of the right foot. Erosive change of the distal second metatarsal with associated fracture suggestive of pathological fracture in the setting of osteomyelitis. 3. Venous Doppler dated 06/07/18, no evidence of DVT. 4. Brain MRI done 06/07/18, no acute findings. 5. Carotid Doppler, unremarkable, no carotid arterial stenosis, bilateral vertebral arteries with antegrade flow. 6. Liver ultrasound, hepatomegaly and probable hepatosteatosis. No compelling evidence for gallbladder pathology. 7. EEG. Clinical impression. This is an abnormal waking and sleep EEG due to the slow posterior dominant rhythm. Otherwise, there is normal organization reactivity. These findings suggest a mild nonspecific encephalopathy, which can be seen in the setting of toxic metabolic disturbance, hypoxic ischemic encephalopathy or due to medication effect. There were no epileptiform discharges or electrographic seizures. 8. Lower extremity right without MRI fluid collection surrounding the third metatarsal measuring 4.3 x 2.8 x 3.1 cm with marked bone marrow edema and bone marrow replacement consistent with osteomyelitis of the third metatarsal. Today had following studies: 1. Brain CT with no acute intracranial changes, hemorrhage. Films were reviewed. 2. Transthoracic echocardiogram. Conclusion: Moderate concentric left ventricular hypertrophy. Mild decreased left ventricular systolic function with estimated ejection fraction of 40% to 45%. Nondiagnostic assessment of diastolic function. Right ventricular global systolic function is normal. There is no evidence of aortic regurgitation. Systolic excursion of the aortic valve cusps is reduced. [id number] aortic stenosis, mild mitral regurg , mild tricuspid regurg, no pulmonary hypertension is noted. There is no significant pericardial effusion. Compared to the study of 01/30/17, the LV function is low, the degree of aortic stenosis is much worse. The girlfriend notes that the patient had 6 episodes of diarrhea yesterday. He had tried to increase his water intake some. In addition, she notes that his blood pressures have been lower in the last few days. He was taken to the ER on Sunday for a severely elevated blood pressure 200/100s, was given his blood pressure medication and sent home. Over the weekend, he started to have lower blood pressures. His girlfriend notes that she takes his blood pressure regularly while he normally runs in the 180s-200s/90s -100s. Over this last weekend, he was running 130s/60s-70s, which is very low for him. He was feeling somewhat somnolent this morning when he went to dialysis. He was helped in but he was awake throughout the period of dialysis though he became more and more obtunded. It was noted that his blood pressure was very low at one point measuring 108/65. Previous blood pressure measurements from 06/21/18 include 186/90, 186/90, and 194/118. Initially, it appears his blood pressure was 114/57 this morning. Blood pressures were consistently low throughout the morning. He became more and more obtunded, CAT call was called and Dr. Miller evaluated him in the dialysis suite. He was subsequently bolused with fluid, became more and more unresponsive. Lab work was done, which showed a normal white count. Potassium was 2.4, ammonia 45, TSH of 1.23. Based on this, he was taken to the ER where again he was obtunded. Fluids were given. He was sent to the ICU for further monitoring. After 2 to 3 hours, he started to improve although he remained somnolent. He is now in the ICU bed. He is sleeping, but awakens. He is able to stay awake some and answer questions appropriately. He is oriented x3. He is following all commands and moving all extremities. He states that he feels very tired, but he denies any pain, shortness of breath, chest pain, nausea or vomiting. His girlfriend says that he has had no more diarrhea today and he has been trying to increase his fluid intake. The ICU nurse notes that he has been oriented x3 and following all commands. Dr. Miller reported that he had some mild twitching of his right upper extremity at one point this morning. No further episodes of twitching or abnormal movements. No generalized tonic-clonic seizure reported. No bladder or bowel incontinence. No tongue biting reported. No history of prior seizure. PAST MEDICAL HISTORY: Includes as noted above. PAST SURGICAL HISTORY: As noted above. CURRENT MEDICATIONS: Include: 1. Sensipar tabs 60 mg daily. 2. Dextrose IV. 3. Ferric citrate tab. 4. Flonase nasal spray. 5. Heparin, DVT prophylaxis, 6. Humalog sliding scale. 7. Morphine p.r.n. 8. Oxycodone p.r.n. 9. Protonix 40 mg b.i.d. 10. Rifaximin 550 mg p.o. b.i.d. 11. Zoloft 150 mg daily. 12. Zocor 2 mg p.o. q.p.m. 13. He was given Narcan this morning. 14. In addition, he was given a dose of ceftriaxone and atropine. He was also given 1 dose of vancomycin this morning. ALLERGIES: He has no known drug allergies. FAMILY HISTORY: Includes liver cancer in his mother, father with arthritis and coronary artery disease, sister with Guillian-Blanchard. SOCIAL HISTORY: He lives at home with his girlfriend. No tobacco or drug use. He did smoke pot last night. He has prior alcohol use at the time of his 's , but none since then. REVIEW OF SYSTEMS: Review of systems in 14-organ systems was difficult to obtain because of the patient's mental status. Please see above for pertinent details. PHYSICAL EXAM: Vital Signs: Heart rate in the 40s, respiratory rate in the 9 to 11 range, O2 sats 99 to 100%. Blood pressure is 142/78, 124/72 to 135/80. In general, he is a well-nourished, well-developed obese gentleman lying in his hospital bed with his head at approximately 45 degrees. He is sleeping, but arouses easily to voice and stimulation. Girlfriend is at the bedside. HEENT: Normocephalic, atraumatic. Sclerae are anicteric. Mucous membranes are moist. Oropharynx is clear. Nares are patent. Neck is supple. No thyromegaly. No carotid bruits. No meningismus. Chest: Clear to auscultation bilaterally. Cardiovascular is regular rate and rhythm with a 3/6 systolic ejection murmur. Abdomen is obese, nontender. Extremities: There is no significant clubbing or cyanosis. He has bilateral distal foot amputations. There is an open wound on the right lower foot with some serous weeping. Skin is otherwise warm and dry. On neurologic exam, he is sleeping and somnolent, but awakens. He is able to stay awake, but does fall back asleep if not stimulated. Speech is fluent. There is no significant dysarthria. Recall is somewhat impaired. Cranial nerves, pupils are equal, round, and reactive to light and accommodation. Extraocular muscles are intact. Visual nicolas appear full to confrontation. Face is symmetric. Facial sensation intact to light touch. Hearing is intact bilaterally. Palate raises symmetrically. Tongue is midline. Motor Exam: He spontaneously moves all extremities antigravity 5/5 with good tone and bulk and good resistance. No drift. Sensation is grossly intact to light touch throughout. He has some diminished sensation in the legs bilaterally. DTRs were absent at the biceps, brachioradialis, absent at the patella, absent at the ankles. [id number] and rapid alternating movements were slow, but intact. There is no tremor appreciated. No resting tremor. No stereotypical movements. Gait cannot be tested at this time. DIAGNOSTIC STUDIES/LAB DATA: Lab work: As noted above. Potassium of 2.4, creatinine of 4.43, glucose of 169, calcium is 7.5, lactic acid 1.6, ionized calcium 0.92, glucose of 150, alk phos of 120, C-reactive protein 11.19, TSH of 1.23. Blood gas pH 7.47, pCO2 of 53, pO2 of 55, bicarb of 34.6. Acetaminophen less than 15. White count of 5.0, hemoglobin of 8.8, hematocrit of 26. Prior GI workup including hepatitis EBV, leptospirosis, all negative. Imaging: As noted above in the HPI. ASSESSMENT AND PLAN: Mr. Singletary is a 53-year-old gentleman with a history of hypertension; diabetes with end-stage renal disease, on dialysis for 2 years; bilateral amputations in the feet with open wound on the right and osteomyelitis , on long-term antibiotic; hyperlipidemia, who has had a recent episode of diarrhea x6 yesterday, has recently been put on beta berlin, came in with a heart rate in the 40s, was in dialysis this morning when he became increasingly obtunded to the point where he was nonresponsive. Blood pressures were noted to be in the low 100s/60s and 50s. This is significantly lower than he used to. Normally, he runs in the 180s to 200s/100s, received IV fluids and has been admitted to the ICU for further monitoring. Blood pressures have improved somewhat although his pulse remains low. It is unclear if he took his beta berlin this morning. Prior workup at his last hospitalization including MRI, carotid ultrasound were negative for a stroke. It was felt at that time that he might have suffered from some hypoperfusion, which caused some shock liver. No other etiology was found for his elevated transaminases. The etiology of his altered mental status was never fully resolved, but possibly could have been due to hypoperfusion as well. Today, I suspect his episode was likely related to hypoperfusion. The patient's blood pressure normally runs in the high 100s to low 200s/100s. He has recently been put on lisinopril and beta berlin. He is currently bradycardic and this is likely from the beta berlin. In addition, he underwent dialysis today with fluid shift. His potassium is low. Of note, he has improved now that he is getting more fluids. There has been no seizure activity reported. He has no known risk factors. EEG is pending, but my suspicion for seizures is low. My suspicion, given his nonfocal exam, currently for stroke is extremely low. I am going to hold on any repeat MRI. He has had recent negative carotids and echocardiogram. I do not think we need to repeat those at this time. If he fails to improve or he develops any new symptoms, we can consider an MRI of the brain in the setting of hypoperfusion, global hypoxia versus stroke is possible, but currently he is improved. He is nonfocal on examination and I suspect that in the setting of a history of severe hypertension, he likely has some chronic vasoconstriction. He has aortic stenosis. He has bradycardia likely secondary to his beta berlin and I suspect that the drop in blood pressure caused hypoperfusion to his brain, which is likely what happened last time. Luckily, his condition was evaluated and corrective measures were taken quickly. I am hopeful that over a night if his blood pressures improve that his symptoms will improve. Long-term blood pressure management requires his blood pressure be brought down slowly as much as possible to allow for compensation over time. I will continue to follow along and make further recommendations as necessary. Thank you for the opportunity to participate in the care of this very interesting patient. [id number]/[id number] #: [id number] [facility]
[2018-07-01] MEDS: Pantoprazole TAB * 40 MG TAB PO SCH (22:19)
[2018-07-01] MEDS: RiFAXimin* 550 MG TAB PO SCH (22:20)
[2018-07-02] MEDS: NS 0.9% 1000 ML** 1,000 ML IV SCH (05:35)
[2018-07-02] MEDS: Heparin VIAL(*) 5000 UNITS/ML VIAL (FIVE THOUSAND) SUBCUT SCH ×3 (05:53→20:50)
--- NOTE | 2018-07-02 08:37 | PN ---
Subjective Date of Service: 07/02/18 Length of Stay: 1 Days Interval History: Overnight, the patient became less responsive again. Overall, as the day progressed yesterday and his blood pressures were higher, he was more awake although remained lethargic. Last night, HR dropped to 39 and BPs dropped again and his mental status declined. This morning, blood pressures are back up and his mental status has basically returned to baseline. No other new issues. No seizure activity. Patient feels tired but completely awake and alert. Echo: EF: 40-45%, moderate to severe EEG: Pending Objective Active Medications: Cinacalcet (Sensipar Tab*) 60 mg PO DAILY [facility] Dextrose (D50w Syringe 50 Ml*) 12.5 gm IV PUSH .FOR FS < 60 - SS PRN PRN Reason: FS < 60 Ferric Citrate (Ferric Citrate Tab(Nf)) 420 mg PO TID WITH MEALS [facility] Last Admin: 07/01/18 16:58 Dose: Not Given Fluticasone Propionate (Flonase Nasal [place] 50mcg*) 2 spray BOTH NARES DAILY [facility] Heparin Sodium (Porcine) (Heparin Vial(*)) 5,000 units SUBCUT Q8HR [facility] Last Admin: 07/02/18 05:53 Dose: 5,000 units Ceftriaxone Sodium 1 gm/ (Sodium Chloride) 50 mls @ 200 mls/hr IVPB 1500 [facility] Last Admin: 07/01/18 15:29 Dose: Not Given Insulin Human Lispro (Humalog*) 0 units SUBCUT ACHS [facility]; Protocol Last Admin: 07/01/18 22:19 Dose: Not Given Morphine Sulfate (Morphine 4 Mg/Ml Vial (1 Ml)) 2 mg IV Q4H PRN PRN Reason: PAIN - MILD Oxycodone HCl (Roxycodone Tab*) 5 mg PO Q6H PRN PRN Reason: PAIN Pantoprazole Sodium (Protonix Tab*) 40 mg PO BID [facility] Last Admin: 07/01/18 22:19 Dose: Not Given Rifaximin (Xifaxan*) 550 mg PO BID [facility] Last Admin: 07/01/18 22:20 Dose: Not Given Sertraline HCl (Zoloft*) 150 mg PO DAILY [facility] Simvastatin (Zocor(Nf)) 10 mg PO QPM [facility] Last Admin: 07/01/18 17:57 Dose: Not Given Vital Signs 07/01/18 07/01/18 07/01/18 09:49 10:00 10:01 Temperature 97.6 F Pulse Rate 57 50 Respiratory 10 16 10 Rate Blood Pressure 114/57 114/57 (mmHg) O2 Sat by Pulse 90 98 Oximetry 07/01/18 07/01/18 07/01/18 10:03 10:05 10:07 Temperature Pulse Rate 50 53 51 Respiratory 13 17 10 Rate Blood Pressure 143/67 143/60 129/55 (mmHg) O2 Sat by Pulse 100 99 100 Oximetry 07/01/18 07/01/18 07/01/18 10:16 10:19 10:31 Temperature Pulse Rate 46 46 46 Respiratory 10 13 6 Rate Blood Pressure 130/56 (mmHg) O2 Sat by Pulse 96 98 100 Oximetry 07/01/18 07/01/18 07/01/18 10:46 10:49 11:01 Temperature Pulse Rate 45 45 42 Respiratory 15 15 15 Rate Blood Pressure 135/65 (mmHg) O2 Sat by Pulse 99 100 99 Oximetry 07/01/18 07/01/18 07/01/18 11:16 11:19 11:31 Temperature Pulse Rate 44 44 42 Respiratory 18 16 16 Rate Blood Pressure 149/66 (mmHg) O2 Sat by Pulse 100 100 99 Oximetry 07/01/18 07/01/18 07/01/18 11:48 11:49 11:51 Temperature Pulse Rate 44 44 43 Respiratory 9 15 15 Rate Blood Pressure 125/53 121/60 (mmHg) O2 Sat by Pulse 100 100 99 Oximetry 07/01/18 07/01/18 07/01/18 12:00 12:01 12:11 Temperature Pulse Rate 43 43 43 Respiratory 14 26 9 Rate Blood Pressure 108/65 125/52 (mmHg) O2 Sat by Pulse 100 99 98 Oximetry 07/01/18 07/01/18 07/01/18 12:15 12:30 12:32 Temperature Pulse Rate 31 43 42 Respiratory 17 10 9 Rate Blood Pressure 109/56 (mmHg) O2 Sat by Pulse 99 99 99 Oximetry 07/01/18 07/01/18 07/01/18 12:42 12:45 12:52 Temperature Pulse Rate 42 42 41 Respiratory 10 10 11 Rate Blood Pressure 105/58 127/64 (mmHg) O2 Sat by Pulse 99 98 84 Oximetry 07/01/18 07/01/18 07/01/18 13:00 13:02 13:12 Temperature Pulse Rate 46 45 43 Respiratory 11 10 21 Rate Blood Pressure 127/63 111/63 (mmHg) O2 Sat by Pulse 100 100 100 Oximetry 07/01/18 07/01/18 07/01/18 13:15 13:22 13:30 Temperature Pulse Rate 43 43 43 Respiratory 18 17 12 Rate Blood Pressure 107/61 (mmHg) O2 Sat by Pulse 100 100 100 Oximetry 07/01/18 07/01/18 07/01/18 13:45 13:54 13:57 Temperature 97.8 F Pulse Rate 42 44 Respiratory 16 20 16 Rate Blood Pressure 110/66 143/79 (mmHg) O2 Sat by Pulse 98 100 Oximetry 07/01/18 07/01/18 07/01/18 14:00 14:01 14:15 Temperature 97.4 F Pulse Rate 44 44 Respiratory 14 10 12 Rate Blood Pressure 138/78 138/78 134/75 (mmHg) O2 Sat by Pulse 98 100 Oximetry 07/01/18 07/01/18 07/01/18 14:30 14:45 14:48 Temperature Pulse Rate 43 48 86 Respiratory 12 18 Rate Blood Pressure 130/73 146/72 142/78 (mmHg) O2 Sat by Pulse 97 99 93 Oximetry 07/01/18 07/01/18 07/01/18 15:00 15:15 15:30 Temperature Pulse Rate 44 48 49 Respiratory 13 11 15 Rate Blood Pressure 124/72 135/80 (mmHg) O2 Sat by Pulse 97 98 92 Oximetry 07/01/18 07/01/18 07/01/18 15:45 16:00 16:15 Temperature 95.7 F Pulse Rate 44 42 45 Respiratory 10 16 4 Rate Blood Pressure (mmHg) O2 Sat by Pulse 98 96 99 Oximetry 07/01/18 07/01/18 07/01/18 16:30 16:45 17:00 Temperature Pulse Rate 43 44 Respiratory 6 7 14 Rate Blood Pressure (mmHg) O2 Sat by Pulse 100 100 Oximetry 07/01/18 07/01/18 07/01/18 17:01 17:16 17:31 Temperature Pulse Rate 44 43 Respiratory 11 16 18 Rate Blood Pressure (mmHg) O2 Sat by Pulse 97 97 Oximetry 07/01/18 07/01/18 07/01/18 17:46 18:00 18:01 Temperature Pulse Rate 44 44 Respiratory 9 13 9 Rate Blood Pressure (mmHg) O2 Sat by Pulse 92 93 Oximetry 07/01/18 07/01/18 07/01/18 18:16 18:31 18:46 Temperature Pulse Rate 45 45 45 Respiratory 12 10 11 Rate Blood Pressure (mmHg) O2 Sat by Pulse 93 87 95 Oximetry 07/01/18 07/01/18 07/01/18 19:00 19:01 19:10 Temperature 96.7 F Pulse Rate 44 Respiratory 15 5 Rate Blood Pressure (mmHg) O2 Sat by Pulse 94 Oximetry 07/01/18 07/01/18 07/01/18 19:16 19:30 19:45 Temperature Pulse Rate 44 45 46 Respiratory 9 5 16 Rate Blood Pressure (mmHg) O2 Sat by Pulse 95 96 Oximetry 07/01/18 07/01/18 07/01/18 20:00 20:15 20:30 Temperature Pulse Rate 44 44 43 Respiratory 14 10 14 Rate Blood Pressure (mmHg) O2 Sat by Pulse 95 97 98 Oximetry 07/01/18 07/01/18 07/01/18 20:45 21:00 21:15 Temperature Pulse Rate 43 42 43 Respiratory 8 9 14 Rate Blood Pressure (mmHg) O2 Sat by Pulse 99 100 98 Oximetry 07/01/18 07/01/18 07/01/18 21:30 21:39 21:45 Temperature Pulse Rate 42 44 46 Respiratory 13 17 10 Rate Blood Pressure 137/78 (mmHg) O2 Sat by Pulse 99 100 100 Oximetry 07/01/18 07/01/18 07/01/18 22:00 22:01 22:15 Temperature Pulse Rate 44 43 44 Respiratory 14 14 12 Rate Blood Pressure 130/71 (mmHg) O2 Sat by Pulse 100 100 100 Oximetry 07/01/18 07/01/18 07/01/18 22:30 22:45 23:00 Temperature Pulse Rate 43 42 42 Respiratory 13 16 20 Rate Blood Pressure 112/67 (mmHg) O2 Sat by Pulse 100 100 100 Oximetry 07/01/18 07/01/18 07/01/18 23:15 23:17 23:30 Temperature 96.5 F Pulse Rate 43 42 Respiratory 17 17 Rate Blood Pressure (mmHg) O2 Sat by Pulse 100 100 Oximetry 07/01/18 07/02/18 07/02/18 23:45 00:00 00:02 Temperature Pulse Rate 43 43 43 Respiratory 16 17 17 Rate Blood Pressure 114/70 (mmHg) O2 Sat by Pulse 100 100 98 Oximetry 07/02/18 07/02/18 07/02/18 00:15 00:30 00:46 Temperature Pulse Rate 42 43 40 Respiratory 19 17 14 Rate Blood Pressure (mmHg) O2 Sat by Pulse 99 100 100 Oximetry 07/02/18 07/02/18 07/02/18 01:00 01:02 01:16 Temperature Pulse Rate 43 42 43 Respiratory 18 18 19 Rate Blood Pressure 128/75 (mmHg) O2 Sat by Pulse 100 100 100 Oximetry 07/02/18 07/02/18 07/02/18 01:31 01:46 01:50 Temperature Pulse Rate 46 48 51 Respiratory 14 16 15 Rate Blood Pressure 147/84 (mmHg) O2 Sat by Pulse 100 100 100 Oximetry 07/02/18 07/02/18 07/02/18 02:00 02:01 02:16 Temperature Pulse Rate 43 43 Respiratory 20 20 20 Rate Blood Pressure 121/62 (mmHg) O2 Sat by Pulse 100 100 Oximetry 07/02/18 07/02/18 07/02/18 02:31 02:46 02:50 Temperature Pulse Rate 44 44 44 Respiratory 20 20 18 Rate Blood Pressure 120/66 (mmHg) O2 Sat by Pulse 100 100 100 Oximetry 07/02/18 07/02/18 07/02/18 03:00 03:01 03:16 Temperature Pulse Rate 45 46 51 Respiratory 19 19 15 Rate Blood Pressure 128/78 (mmHg) O2 Sat by Pulse 99 100 100 Oximetry 07/02/18 07/02/18 07/02/18 03:29 03:30 03:45 Temperature 97.8 F Pulse Rate 44 44 Respiratory 19 19 Rate Blood Pressure (mmHg) O2 Sat by Pulse 100 100 Oximetry 07/02/18 07/02/18 07/02/18 04:00 04:15 04:30 Temperature Pulse Rate 52 54 53 Respiratory 13 7 15 Rate Blood Pressure 153/82 (mmHg) O2 Sat by Pulse 100 100 100 Oximetry 07/02/18 07/02/18 07/02/18 04:45 05:00 05:15 Temperature Pulse Rate 54 55 65 Respiratory 12 14 11 Rate Blood Pressure 139/93 (mmHg) O2 Sat by Pulse 100 100 100 Oximetry 07/02/18 07/02/18 07/02/18 05:30 05:45 06:00 Temperature Pulse Rate 54 55 55 Respiratory 10 14 18 Rate Blood Pressure 160/79 (mmHg) O2 Sat by Pulse 100 100 100 Oximetry 07/02/18 07/02/18 07/02/18 06:15 06:30 06:45 Temperature Pulse Rate 56 57 56 Respiratory 13 15 13 Rate Blood Pressure (mmHg) O2 Sat by Pulse 100 100 100 Oximetry 07/02/18 07/02/18 07/02/18 07:00 07:15 07:30 Temperature Pulse Rate 57 54 58 Respiratory 12 16 8 Rate Blood Pressure 162/88 (mmHg) O2 Sat by Pulse 100 100 100 Oximetry 07/02/18 07/02/18 07/02/18 07:45 07:47 08:00 Temperature 97.5 F Pulse Rate 55 55 Respiratory 13 6 Rate Blood Pressure 179/86 (mmHg) O2 Sat by Pulse 100 100 Oximetry Intake and Output Last 24 Hours 06/30/18 07/01/18 07/02/18 07/03/18 06:59 06:59 06:59 06:59 Intake Total 3076 Balance 3076 Weight 270 lb 10.882 oz Intake: IV Fluids 2405 ABX - ZOSYN 246 NS (0.9%) 1449 IVPB 671 ABX - ZOSYN 355 NS (0.9%) 316 Oral 0 Other: Estimated Void Small # Voids 1 Oxygen Devices in Use Now: Nasal Cannula Neurology Exam: General: Well nourished, well developed, obese and in no acute distress HEENT: Normocephalic/atraumatic, sclera anicteric, mucous membranes moist Neck: Supple Chest: Clear to auscultation bilaterally Cardiovascular: Regular rate and rhythm with 3/6 SHANNAN at LUSB Abdomen: Soft, non-tender Extremities: Bilateral mid-foot amputations, lesion on plantar surface of right foot bandaged. Neurological Findings: Awake, alert, and oriented to person, place, and time. Speech: fluent without dysarthria, repetition intact Cranial Nerve: PERRL, EOM intact, VFF, no nystagmus, face symmetric bilaterally , hearing intact bilaterally, palate elevates symmetrically, tongue midline Motor: 5/5 throughout, proximal and distal extremities x4 tone/bulk normal Sensation: Diminished LT/PP in the lower extremities Deep Tendon Reflex: Absent throughout Finger to nose, rapid alternating movements intact without tremor Result Diagrams: 04/22/19 10:01 07/01/18 19:40 Microbiology and Other Data: Microbiology 07/01/18 14:00 Nasal Screen MRSA (PCR) - Final Nasal Mrsa Not Detected Diagnostic Imaging: Diagnostics Summary of CT Findings [brain IMPRESSION: No intracranial mass or hemorrhage is ct] noted. THIS REPORT WAS REVIEWED BY DR. ALBERTS. Summary of EKG Findings [1001] EKG showed sinus bradycardia with rate of 45 BPM, PVCs, normal axis, non-specific ST, prolonged QTc. Assessment/Plan Assessment Mr. Singletary is a 53-year-old gentleman with a history of hypertension; diabetes with end-stage renal disease, on dialysis for 2 years; bilateral amputations in the feet with open wound on the right and osteomyelitis, on long- term antibiotic; hyperlipidemia, who has had a recent episode of diarrhea x6 yesterday, has recently been put on beta [place] and lisinopril, came in with a heart rate in the 40s, was in dialysis this morning when he became increasingly obtunded to the point where he was nonresponsive. Blood pressures were noted to be in the low 100s/60s and 50s. This is significantly lower than he used to. Normally, he runs in the 180s to 200s/100s, received IV fluids and has been admitted to the ICU for further monitoring. 1. AMS: Suspect this is related to hypoperfusion in the setting of chronically elevated blood pressures with precipitous drop, bradycardia and --Would recommend keeping blood in the moderate range, defer to cardiology but I would expect his MS to decline with lower blood pressures in the current setting --Suspicion for seizure is very low: EEG pending --Suspicion for [employer] infection very low (h/o chronic osteo), no further workup --Suspicion for stroke very low given presentation --No history of NANETTE, 2. and BP: Defer to cardiology 3. Chronic osteo of the RLE, defer to ID 4. ESRD: On dialysis 5. DM: Per primary Follow up EEG, assuming it is negative for seizure activity, I will sign off, but please call me with any further issues or concerns. Thank you for the opportunity to participate in his care.
--- NOTE | 2018-07-02 08:49 | PN ---
Subjective Date of Service: 07/02/18 Interval History: Pt feels well, no complaints, wide awake. no BM since Sunday. Labs still pending this aM Objective Active Medications: Cinacalcet (Sensipar Tab*) 60 mg PO DAILY [facility] Dextrose (D50w Syringe 50 Ml*) 12.5 gm IV PUSH .FOR FS < 60 - SS PRN PRN Reason: FS < 60 Ferric Citrate (Ferric Citrate Tab(Nf)) 420 mg PO TID WITH MEALS [facility] Last Admin: 07/01/18 16:58 Dose: Not Given Fluticasone Propionate (Flonase Nasal [place] 50mcg*) 2 spray BOTH NARES DAILY [facility] Heparin Sodium (Porcine) (Heparin Vial(*)) 5,000 units SUBCUT Q8HR [facility] Last Admin: 07/02/18 05:53 Dose: 5,000 units Ceftriaxone Sodium 1 gm/ (Sodium Chloride) 50 mls @ 200 mls/hr IVPB 1500 [facility] Last Admin: 07/01/18 15:29 Dose: Not Given Insulin Human Lispro (Humalog*) 0 units SUBCUT ACHS [facility]; Protocol Last Admin: 07/01/18 22:19 Dose: Not Given Morphine Sulfate (Morphine 4 Mg/Ml Vial (1 Ml)) 2 mg IV Q4H PRN PRN Reason: PAIN - MILD Oxycodone HCl (Roxycodone Tab*) 5 mg PO Q6H PRN PRN Reason: PAIN Pantoprazole Sodium (Protonix Tab*) 40 mg PO BID [facility] Last Admin: 07/01/18 22:19 Dose: Not Given Rifaximin (Xifaxan*) 550 mg PO BID [facility] Last Admin: 07/01/18 22:20 Dose: Not Given Sertraline HCl (Zoloft*) 150 mg PO DAILY [facility] Simvastatin (Zocor(Nf)) 10 mg PO QPM [facility] Last Admin: 07/01/18 17:57 Dose: Not Given Vital Signs - 8 hr 07/02/18 07/02/18 07/02/18 01:00 01:02 01:16 Temperature Pulse Rate 43 42 43 Respiratory 18 18 19 Rate Blood Pressure 128/75 (mmHg) O2 Sat by Pulse 100 100 100 Oximetry 07/02/18 07/02/18 07/02/18 01:31 01:46 01:50 Temperature Pulse Rate 46 48 51 Respiratory 14 16 15 Rate Blood Pressure 147/84 (mmHg) O2 Sat by Pulse 100 100 100 Oximetry 07/02/18 07/02/18 07/02/18 02:00 02:01 02:16 Temperature Pulse Rate 43 43 Respiratory 20 20 20 Rate Blood Pressure 121/62 (mmHg) O2 Sat by Pulse 100 100 Oximetry 07/02/18 07/02/18 07/02/18 02:31 02:46 02:50 Temperature Pulse Rate 44 44 44 Respiratory 20 20 18 Rate Blood Pressure 120/66 (mmHg) O2 Sat by Pulse 100 100 100 Oximetry 07/02/18 07/02/18 07/02/18 03:00 03:01 03:16 Temperature Pulse Rate 45 46 51 Respiratory 19 19 15 Rate Blood Pressure 128/78 (mmHg) O2 Sat by Pulse 99 100 100 Oximetry 07/02/18 07/02/18 07/02/18 03:29 03:30 03:45 Temperature 97.8 F Pulse Rate 44 44 Respiratory 19 19 Rate Blood Pressure (mmHg) O2 Sat by Pulse 100 100 Oximetry 07/02/18 07/02/18 07/02/18 04:00 04:15 04:30 Temperature Pulse Rate 52 54 53 Respiratory 13 7 15 Rate Blood Pressure 153/82 (mmHg) O2 Sat by Pulse 100 100 100 Oximetry 07/02/18 07/02/18 07/02/18 04:45 05:00 05:15 Temperature Pulse Rate 54 55 65 Respiratory 12 14 11 Rate Blood Pressure 139/93 (mmHg) O2 Sat by Pulse 100 100 100 Oximetry 07/02/18 07/02/18 07/02/18 05:30 05:45 06:00 Temperature Pulse Rate 54 55 55 Respiratory 10 14 18 Rate Blood Pressure 160/79 (mmHg) O2 Sat by Pulse 100 100 100 Oximetry 07/02/18 07/02/18 07/02/18 06:15 06:30 06:45 Temperature Pulse Rate 56 57 56 Respiratory 13 15 13 Rate Blood Pressure (mmHg) O2 Sat by Pulse 100 100 100 Oximetry 07/02/18 07/02/18 07/02/18 07:00 07:15 07:30 Temperature Pulse Rate 57 54 58 Respiratory 12 16 8 Rate Blood Pressure 162/88 (mmHg) O2 Sat by Pulse 100 100 100 Oximetry 07/02/18 07/02/18 07/02/18 07:45 07:47 08:00 Temperature 97.5 F Pulse Rate 55 55 Respiratory 13 6 Rate Blood Pressure 179/86 (mmHg) O2 Sat by Pulse 100 100 Oximetry Oxygen Devices in Use Now: Nasal Cannula Appearance: 53 yo M in nAD, aAOx3 Eyes: No Scleral Icterus, PERRLA Ears/Nose/Mouth/Throat: NL Teeth, Lips, Gums, Mucous Membranes Moist Neck: NL Appearance and Movements; NL JVP, Trachea Midline Respiratory: Symmetrical Chest Expansion and Respiratory Effort, Clear to Auscultation Cardiovascular: RRR, - - 2/6 SHANNAN Abdominal: NL Sounds; No Tenderness; No Distention, No Hepatosplenomegaly Lymphatic: No Cervical Adenopathy Extremities: No Clubbing, Cyanosis, - - trace ankle edema b/l, s/p b/l TMA Skin: No Nodules or Sclerosis, - - small open area of ulcer at 1 cm at bottom of R foot , shallow with serous drainage Neurological: Alert and Oriented x 3, NL Muscle Strength and Tone Result Diagrams: 07/01/18 10:01 07/01/18 19:40 Microbiology and Other Data: Microbiology 07/01/18 14:00 Nasal Screen MRSA (PCR) - Final Nasal Mrsa Not Detected Assess/Plan/Problems-Billing Mr. Singletary is a 53-year-old gentleman with a history of hypertension; diabetes with end-stage renal disease, on dialysis for 2 years; bilateral amputations in the feet with open wound on the right and osteomyelitis, on long- term antibiotic; hyperlipidemia, who has had a recent episode of diarrhea x6 on 06/30/18, has recently been put on beta [place], came in with a heart rate in the 40s, was in dialysis this morning when he became increasingly obtunded to the point where he was nonresponsive. Blood pressures were noted to be in the low 100s/60s and 50s. This is significantly lower than he used to. Normally, he runs in the 180s to 200s/100s, received IV fluids and has been admitted to the ICU for further monitoring. pressures have improved - Patient Problems (1) Altered mental state Comment: CT brain neg. MRI neg 06/07/18 when similar epoisode occured. EEG pending. appreciate DR. Major's consult Suspect brain hypoperfusion in pt with SBP at 104 and severe Symptoms resolved, neurologically back to baseline (2) Severe aortic stenosis Comment: and EF 45%. DR. Tejada consulted. As per pt he had a cath at [facility] in 12/2017-records requested (3) Hypokalemia Comment: and metabolic acidosis-due to GI loses improving May need to stop PPI in the future (4) Anemia Comment: gastric ulcer on outpatient EGD 05/01/17. continue PPI continue epogen with HD (5) Chronic osteomyelitis of right foot Comment: -MRI of R foot showed fluid collection 4 cm and osteo on 06/14/18, possibly due to lag of radiographic changes, but as per d/w Dr. Ramos pt was treated for it with anibiotics for a total 8 weeks prior and it's unlikely to be infected now. Will cont Ceftriaxone till blood cx result, then eladio will d/c antibiotic (6) Diarrhea Comment: Does not appear severely ill. h/o episodes of diarrhea x 6 months. Not eladio a good candidate for colonoscopy given H/o liver failure (resolved ) and elevated ammonia- cont rifaximin (7) ESRD (end stage renal disease) Comment: HD MWF as outpatient. (8) Hypertension Comment: due to h/o HTN and baeline SBP 180's at home and now severe , will permit HTN and asked to be called with SBP>180, ACEI, lopressor held. (9) DM type 2 (diabetes mellitus, type 2) Comment: continue SSI lispro, diet controlled at home (10) QT prolongation Comment: improved with tx of hypokalemia Eladio the reason for bradycardia-lopressor held for now (11) DVT prophylaxis Comment: heparin sc Status and Disposition: inpatient
[2018-07-02 10:31] LABS: ABS Basophils 0.1 10^3/ul (0-0.2); ABS Eosinophils 0.1 10^3/ul (0-0.6); ABS Lymphocytes 1.5 10^3/ul (1.0-4.8); ABS Monocytes 0.4 10^3/ul (0-0.8); ABS Neutrophils 3.8 10^3/ul (1.5-7.7); ABS Nucleated RBC 0 10^3/ul; Eosinophil % 2.5 %; Hematocrit 27 % (36-46); Lymphocyte % 24.6 %; Mean Corpuscular HGB Conc 33 g/dL (31-36); Mean Corpuscular Hemoglobin 35 pg (27-31); Mean Corpuscular Volume 106 fL (80-94); Mean Platelet Volume 9.1 fL (7.4-10.4); Nucleated Red Blood Cells % 0; Platelet Count 193 10^3/uL (150-450); Red Blood Count 2.57 10^6 /uL (4.18-5.48); Red Cell Distribution Width 21 % (10.5-15); White Blood Count 5.9 10^3/uL (3.5-10.8)
[2018-07-02 10:44] LABS: Albumin 3.4 g/dL (3.2-5.2); BUN/Creatinine Ratio 3.1 (8-20); Calcium 7.8 mg/dL (8.6-10.3); EGFR African American 12.2 (>60); EGFR Non-African American 10.1 (>60); Globulin 3.3 g/dL (2-4); Potassium 3.4 mmol/L (3.5-5.0); Total Bilirubin 0.6 mg/dL (0.2-1.0); Total Protein 6.7 g/dL (6.4-8.9)
[2018-07-02] MEDS: Sertraline* 50 MG TAB PO SCH (10:46)
[2018-07-02] MEDS: Pantoprazole TAB * 40 MG TAB PO SCH ×2 (10:47→20:47)
[2018-07-02] MEDS: Fluticasone NASAL SPRAY 50MCG* 16 gm SPRAY BTL BOTH NARES SCH (10:48)
[2018-07-02] MEDS: RiFAXimin* 550 MG TAB PO SCH ×2 (10:48→20:47)
[2018-07-02] MEDS: FERRIC CITRATE 210 MG PO SCH ×3 (10:49→17:33)
[2018-07-02] MEDS: Insulin LISPRO* 1 UNITS UNIT SUBCUT SCH ×4 (10:50→20:45)
--- NOTE | 2018-07-02 13:28 | CONS ---
CONSULTATION REPORT: DATE OF CONSULT: 07/02/18 ATTENDING PHYSICIAN: Dr. Mohit Tejada, Cardiology* (dictated by Sheryl Tavera NP). REASON FOR CONSULTATION: Altered mental status with history of aortic stenosis. PRIMARY SWATCH MAKER: Dr. William Chavez. PRIMARY CARPET SEWER: Dr. Johnson. PRIMARY INFECTIOUS DISEASE PHYSICIAN: Dr. Mcwilliams. CHIEF COMPLAINT: Altered mental status. HISTORY OF PRESENT ILLNESS: This is an unfortunate 53-year-old male patient who follows Dr. William Chavez of our practice due to a notable history of mild coronary artery disease, as noted on left heart catheterization in December 2017 that revealed 40% mid RCA, 25% proximal LAD, 30% mid LAD lesion that was done due to troponinemia. He also has a history of mild aortic stenosis on echo in 2016, resistant hypertension, osteomyelitis involving right foot, and end-stage renal disease, on hemodialysis every Sunday, Sunday, and Sunday. The patient states he has been in his usual state of health. Two weeks ago, he was evaluated in the emergency department due to hypertension. His girlfriend who is present during interview states that his blood pressure at that time was 208/108. He was not admitted to the hospital and she states there was not cardiac testing done. They increased Lopressor from 25 mg p.o. b.i.d. to 50 mg p.o. b.i.d. and he was discharged home. He also reports vancomycin being recently discontinued by Dr. Mcwilliams and Xifaxan being prescribed 2 weeks ago. He states that on Sunday, he was doing well but did have increased loose stools. He states he had 6 watery diarrhea bowel movements. Denies nausea, vomiting, fever or chills. On Sunday at 6 a.m., he was on his way to dialysis. He states that he felt weak. He actually had to get assistance into the dialysis center via wheelchair. Apparently, he became unresponsive. According to his girlfriend, his blood pressure was 70/30. Dr. Johnson evaluated the patient and apparently he was not responsive to sternal rub. Thus, 911 was called and he was transferred to [facility]. While being evaluated in the emergency department, ECG revealed sinus bradycardia at rate 45 with frequent PVCs and initial troponin peaked at 0.05. He was admitted to the ICU for altered mental status, bradycardia, diarrhea, and we were asked to evaluate the patient in consultation. The patient is currently lying in bed, eating breakfast, and offers no complaints. Unfortunately, he does not recall the events that took place yesterday; however, his girlfriend who is his healthcare proxy is present and was very insightful in regards to the events leading to his hospitalization. He denies shortness of breath, dyspnea on exertion, palpitations, sensation of heart racing, dizziness, lightheadedness, or syncope. Dr. Major was asked to evaluate the patient due to altered mental status. His consultation was reviewed. Last echocardiogram on 07/01/18, LVEF 40% to 45%, moderate LVH, mild left atrial dilatation, moderate to severe aortic stenosis, dimensionless index 0.24 , peak gradient 54, mean gradient 24, mild mitral regurgitation. Last ischemic evaluation via left heart catheterization at [facility] in [place], [place], 12/14/17. Per report, mid RCA 40%, proximal LAD lesion 25%, mid LAD lesion 30%. PAST MEDICAL HISTORY: Notable for: 1. Coronary artery disease. 2. End-stage renal disease, on hemodialysis every Sunday, Sunday, and Sunday. 3. Diabetes mellitus. 4. Chronic osteomyelitis of right foot. 5. Mitral regurgitation. 6. Gout. 7. Iron deficiency anemia. 8. Hepatomegaly. 9. Hepatic encephalopathy, on Xifaxan therapy. 10. Aortic stenosis. PAST SURGICAL HISTORY: Includes: 1. Hernia repair. 2. Bilateral transmetatarsal amputations. 3. Open reduction and internal fixation of left ankle. 4. Skin graft to right heel. 5. Left heart catheterization on 12/14/17. HOME MEDICATIONS: According to admission med rec: 1. Zocor 10 mg a day. 2. Prilosec 20 mg p.o. b.i.d. 3. Zoloft 250 mg p.o. daily. 4. Lopressor 50 mg p.o. b.i.d. 5. Lisinopril 10 mg a day. 6. Oxycodone 5 mg p.o. q.6 h. p.r.n. 7. Xifaxan 550 mg p.o. b.i.d. 8. Imodium as directed. 9. Sensipar 60 mg a day. 10. Ferric citrate 420 mg p.o. t.i.d. 11. Vitamin B complex 1 capsule a day. ALLERGIES: No known drug allergies. FAMILY HISTORY: Noncontributory. SOCIAL HISTORY: The patient is disabled. Single. Lives at home with his girlfriend. Former alcoholic. Denies tobacco abuse. Denies drug use. REVIEW OF SYSTEMS: All systems have been reviewed and otherwise negative except as above mentioned in the HPI. PHYSICAL EXAM: Temperature is 97.5, pulse 60, blood pressure 169/79, oxygenation 100% on room air, respirations 15. General: The patient is lying in bed, eating breakfast, cooperative with the exam, does not appear in any apparent distress. HEENT: Head is atraumatic, normocephalic. Oral mucosa is moist. Tongue is midline. Neck: Supple. Trachea midline. No JVD. No carotid bruits. Cardiac: Normal S1, S2. Regular rate and rhythm. There is a grade 3/6 early systolic aortic murmur auscultated across the entire pericardium. No gallop or rub noted. Lungs: Auscultated posteriorly. No evidence of adventitious breath sounds. Respirations are nonlabored at a rate of 15. /GI: Abdomen is obese, nontender. Normoactive bowel sounds x4. Extremities: No pretibial edema appreciated. A 2+ right dorsalis pedis pulses palpated. A 2+ left posterior tibialis pulse palpated. Otherwise, no clubbing or cyanosis appreciated. DIAGNOSTIC STUDIES/LAB DATA: Blood work obtained on 07/01/18: Sodium 134, potassium 3.3, chloride 93, carbon dioxide 33. Creatinine 5.31. Troponin #1, 0.05; troponin #2, 0.03. Ammonia level was 45. AST and ALT were normal. White count 5.9, hemoglobin 9, hematocrit 27, platelets 193. ECG from 07/01/18 reveals sinus bradycardia, rate 45 with frequent PVCs. Brain CT, 07/01/18, no intracranial mass or hemorrhage per radiology report. ASSESSMENT AND PLAN: 1. Altered mental status: This is in the setting of hypotension with complaints of weakness and worsening of diarrhea the day prior of onset of symptomatology. The patient has a notable history of now moderate to severe aortic stenosis previously in 2017 was with mild in severity. The patient has a notable history of resistant hypertension. In fact, 2 weeks ago, he was at the hospital for blood pressure of 208/108. I recommend restarting Lopressor 12.5 mg p.o. b.i.d., restart lisinopril 5 mg a day. The patient will need to be monitored closely given he was hypotensive and bradycardic upon presentation. Blood pressure currently is 169/79. I appreciate neurology evaluation. The patient will need a followup with primary motor equipment captain, Dr. Chavez, in July as planned for ongoing monitoring of moderate to severe aortic stenosis. It appears that this was related to hypoperfusion in the setting of volume contraction and recent adjustment in hypertension medications. 2. History of mild coronary artery disease. He denies chest pain. Initial troponin peaked at 0.05 and has trended down. No ischemic ECG changes appreciated. Left heart catheterization was in December 2017. The patient had 40 % mid RCA and 25% proximal LAD, 30% mid LAD lesion. Unless otherwise contraindicated, we would recommend aspirin 81 mg a day, continuation on simvastatin therapy, and we will restart Lopressor at 12.5 mg p.o. b.i.d. 3. History of moderate to severe aortic stenosis, peak gradient 54, mean gradient 26, dimensionless index of 0.24. We will restart beta-berlin and KEMI inhibitor therapy cautiously. Recommend monitoring on telemetry for recurrent bradycardia. QRS complex is narrow. The patient will need to see primary motor equipment captain as planned in July on outpatient basis. 4. End-stage renal disease, on hemodialysis. Follows Dr. Johnson. Undergoes hemodialysis every Sunday, Sunday, and Sunday. 5. Ongoing complaints of diarrhea. In the past, the patient has followed Dr. Javed. Defer to primary team. This likely complicated the above #1. 6. History of osteomyelitis involving right foot. Follows with Dr. Mcwilliams. Hospitalist Service has the patient on antibiotic therapy. White blood cell count is normal. Denies fever. 7. Newly diagnosed LV dysfunction. LVEF now 40% to 45%. The patient is compensated on physical examination. Lisinopril to be restarted at 5 mg p.o. daily. Lopressor to be started at 12.5 mg p.o. b.i.d. We will need to follow up outpatient with primary motor equipment captain. 8. Disposition. Pending course. Dr. Tejada is personally seeing and examining the patient and agrees with the above assessment and plan. Please do not hesitate to contact our practice with any questions or concerns. SHERYL TAVERA NP Patient seen and examined [facility] julius Cardona started Follow up set with Dr Mary Ellen Cazares [id number]/[facility] #: [id number] [facility]
[2018-07-02] MEDS: Cinacalcet TAB* 30 MG PO SCH (14:21)
[2018-07-02] MEDS: cefTRIAXone(*) 1 GM in NS 0.9% 50 ML* 50 ML IVPB SCH (15:13)
--- NOTE | 2018-07-02 17:45 | CONSULT ---
Subjective Date of Service: 07/02/18 Interval History: Mr. Singletary is a 53 yo male with PMH significant for GERD, HTN, ESRD on hemodyalisis, DM2, and right foot osteomyelitis and abscess who has been off ABX for about 1 month, who presented to the hospital after an unresponsive event during hemodialysis. He was recently hospitalized for an acute liver injury. He has a known diabetic ulcer to his right foot and is followed by Dr. Mcwilliams with ID and the wound clinic. He has not been keeping a dressing on the wound for a few weeks. He recently bumped the area and has been using a bandaid as there was some bloody drainage from the area. Patient seen and examined at bedside. Family History: Unchanged from Admission Social History: Unchanged from Admission Past Medical History: Unchanged from Admission Review of Systems - Measurements Intake and Output: Intake and Output Last 24 Hours 06/30/18 07/01/18 07/02/18 07/03/18 06:59 06:59 06:59 06:59 Intake Total 3076 761 Balance 3076 761 Weight 270 lb 10.882 oz Intake: IV Fluids 2405 401 ABX - ZOSYN 246 NS (0.9%) 1449 401 IVPB 671 ABX - ZOSYN 355 NS (0.9%) 316 Oral 0 360 Other: Estimated Void Small Date of Last Bowel 07/02/18 Movement # Bowel Movements 1 Estimated Stool Amount Small # Voids 1 - Review of Systems Constitutional Symptoms: Negative: Fever, Other - Chills Dermatology: Positive: Other - Ulcer to plantar aspect of the right foot Endocrinology: Positive: Obesity, Diabetes Mellitus Objective Active Medications: Cinacalcet (Sensipar Tab*) 60 mg PO DAILY [facility] Dextrose (D50w Syringe 50 Ml*) 12.5 gm IV PUSH .FOR FS < 60 - SS PRN Reason: FS < 60 Ferric Citrate (Ferric Citrate Tab(Nf)) 420 mg PO TID WITH MEALS [facility] Fluticasone Propionate (Flonase Nasal [place] 50mcg*) 2 spray BOTH NARES DAILY [facility] Heparin Sodium (Porcine) (Heparin Vial(*)) 5,000 units SUBCUT Q8HR [facility] Ceftriaxone Sodium 1 gm/ (Sodium Chloride) 50 mls @ 200 mls/hr IVPB 1500 [facility] Insulin Human Lispro (Humalog*) 0 units SUBCUT ACHS [facility]; Protocol Lactobacillus Rhamnosus (Lactobacillus Acidophilus*) 1 tab PO BID [facility] Lisinopril (Prinivil Tab*) 5 mg PO DAILY [facility] Metoprolol Tartrate (Lopressor Tab*) 12.5 mg PO BID [facility] Morphine Sulfate (Morphine 4 Mg/Ml Vial (1 Ml)) 2 mg IV Q4H PRN Reason: PAIN - MILD Oxycodone HCl (Roxycodone Tab*) 5 mg PO Q6H PRN Reason: PAIN Pantoprazole Sodium (Protonix Tab*) 40 mg PO BID [facility] Rifaximin (Xifaxan*) 550 mg PO BID [facility] Sertraline HCl (Zoloft*) 150 mg PO DAILY [facility] Simvastatin (Zocor(Nf)) 10 mg PO QPM [facility] Vital Signs 07/02/18 16:15 Temperature 97.5 F Pulse Rate 62 Respiratory 18 Rate Blood Pressure 172/81 (mmHg) O2 Sat by Pulse 95 Oximetry Oxygen Devices in Use Now: None Appearance: NAD, laying in bed Ears/Nose/Mouth/Throat: Mucous Membranes Moist Respiratory: Symmetrical Chest Expansion and Respiratory Effort Cardiovascular: No Edema Skin: - - See skin note below Neurological: Alert and Oriented x 3 Nutrition: Taking PO's Result Diagrams: 07/05/18 05:50 07/05/18 05:50 Microbiology and Other Data: Microbiology 07/01/18 14:00 Nasal Screen MRSA (PCR) - Final Nasal Mrsa Not Detected Diagnostic Imaging: Diagnostics Summary of CT Findings [brain IMPRESSION: No intracranial mass or hemorrhage is ct] noted. THIS REPORT WAS REVIEWED BY DR. ALBERTS. Summary of EKG Findings [1001] EKG showed sinus bradycardia with rate of 45 BPM, PVCs, normal axis, non-specific ST, prolonged QTc. Skin Deviation Note - Skin Deviation Findings Right foot - There is an ulcer to the plantar aspect of the foot, measures . There is no drainage noted.. The wound base is dark, the surrounding skin is intact. There is no erythema. The ulcer measures 1.5 cm x 1.1 cm x 0.1 cm. Assessment/Plan: Mr. Singletary is a 53 yo male with PMH significant for GERD, HTN, ESRD on hemodyalisis, DM2, and right foot osteomyelitis and abscess who has been off ABX for about 1 month, who presented to the hospital after an unresponsive event during hemodialysis. He was recently hospitalized for an acute liver injury. 1. Right plantar foot diabetic ulcer. The callous previously over the ulcer is now gone and more raised from his last admission. No erythema. Recommend applying Iodosorb, and a dry dressing. Change the dressing every other day. He should resume following with the wound clinic on discharge from the hospital. 2. Right foot osteomyelitis. Follows with Dr. Mcwilliams with ID for this. He is currently off ABX. 3. Diabetes Mellitus, Type 2 with diabetic neuropathy. HgA1C was 5.3 in 2017. Maintain good glycemic control to allow for wound healing. 4. Diet. Consistent carbohydrate, renal diet. 5. Code Status. DNR. 6. Disposition. Inpatient, disposition per primary medicine team. TIME SPENT: Time for this wound consultation was 25 minutes and 15 minutes was spent with the patient discussing past medical history; assessing, measuring and photographing the wound. Wound Problem/Plan Is Patient a Wound Clinic Patient: Yes Current Treatment: None, previously using Iodosorb Attending: Suni Pierre
[2018-07-02] MEDS: CMCS:Simvastatin TAB(NF) 10 MG TAB PO SCH (17:56)
[2018-07-02] MEDS: Lactobacillus Acidophilus* 1 TAB PO SCH (20:47)
[2018-07-02] MEDS: Metoprolol Tartrate TAB* 25 MG PO SCH (20:47)
[2018-07-02] MEDS ORDERED: Metoprolol Tartrate TAB* 25 MG PO SCH (21:00)
--- NOTE | 2018-07-02 21:51 | EEG ---
ELECTROENCEPHALOGRAPHY: DATE OF STUDY: 07/02/18 - ROOM #444 DATE OF DICTATION: 07/02/18 PATIENT OF: VANDANA Knapp CLINICAL PROBLEM: This is a 53-year-old man being evaluated for altered mental status with an episode of unresponsiveness during dialysis and with being excessively drowsy. He has end-stage renal disease and a fluctuating mental status. MEDICATIONS: Include: 1. Potassium. 2. Calcium. 3. Ceftriaxone. 4. Heparin. 5. Atropine. 6. Magnesium. 7. Naloxone. REPORT: With the patient asleep, background consists of moderate amplitude, admixed theta and delta activity. There is some of more prominent delta activity in the right hemisphere than the left and this is a minor asymmetry. Towards the end of the tracing, the patient is able to be aroused and background reaches 8 Hz frequency, but the patient quickly becomes drowsy with admixed theta range frequencies. No clear epileptiform potentials are noted. CLINICAL IMPRESSION: This asleep and briefly awake EEG shows no epileptiform potentials. The patient appears excessively drowsy during the tracing and briefly awakes to a relatively normal background, but then becomes drowsy again with further slowing. Of note, there is a minor asymmetry of more slowing in the right hemisphere during a portion of the sleep tracing than the left side. [id number]/[facility] #: [id number] [facility] HOSPITALBryanna
--- NOTE | 2018-07-02 21:51 | CONS ---
GASTROENTEROLOGY CONSULT: DATE: 07/02/18 CONSULTING PHYSICIAN: Dr. Philly Miller. REASON FOR CONSULTATION: Sporadic episodes of diarrhea of unclear relationship to episodes of altered mental status and a recent episode of hepatic injury, which now seems to have resolved. HISTORY: This 53-year-old male morbidly obese has insulin-dependent diabetes since at least 2009, with chronic foot osteomyelitis followed by Dr Mcwilliams, mild , mild CAD and renal failure. He went thorough a 10- month phase with no treatment due to residential of his primary physician in 2016 and at the end of that time became dialysis-dependent and has been having hemodialysis Sunday, Sunday, Sunday since then. He has had reports of precipitous diarrhea for a day or 3 or more in recent months. At other times his stools have been formed. Stool studies have been negaitve for culture and C diff twice. His only colonoscopy April 2017 mostly to try to diagnose anemia and heme positive stool with only one medium size right colon polyp removed. Upper endoscopy same day 05/01/17 showed a gastric ulcer. Biopsies were benign. The duodenum appeared normal. Colonoscopy that same day showed a medium benign right colon polyp with somewhat of a limited prep in the right colon as he did not follow instructions. There was left colonic diverticulosis, but no sign of colitis. No colonic explanation for heme-positive stool or anemia was found. In general, at home, he eats an unrestricted diet. He is not particularly careful with diabetic parameters. After hospitalization, a month ago for abnormal mental status, hypotension and hepatic injury, he was home for 2 weeks and doing reasonably well. He was eating regular food, having formed stools, taking Imodium about one-third of days and not having any fever or rectal bleeding. He was on omeprazole twice a day and listed as taking ferric citrate 420 mg t.i.d. His GF says it was just once a day. Again he has had several stool studies including C. diff negative x2 the last 4 months, negative stool culture. During the last admission 06/13/18, stool for lactoferrin was positive. Wound culture 03/29/18 did grew out Klebsiella oxytoca, though that has not been found in stool culture. PAST MEDICAL HISTORY: 1. Morbid obesity. 2. Diabetes. 3. Renal failure. 4. Chronic osteomyelitis, right foot. 5. Hypertension. 6. History of gout. 7. History of anemia - Dr. Winters consulted and he thought the ferritin elevation was secondary and recommended the patient take Epogen and follow up. 8. Aortic stenosis - mild (as per Hx and PE - later echo shows much more significant restriction) MEDICATIONS: At home, simvastatin; sertraline; omeprazole; metoprolol; lisinopril; rifaximin; loperamide p.r.n.; ferric citrate 420 t.i.d.; Sensipar 60 mg. SOCIAL HISTORY: He lives with his girlfriend. His primary is Lety Monsalve NP [facility]. REVIEW OF SYSTEMS: He has been followed by Cardiology. He had a cardiac catheterization a few years ago with mild CAD. He has no history of lung disease. There has been no history of overt rectal bleeding. He did have a small right colon polyp removed at the colonoscopy 14 months ago. He is currently on ceftriaxone. EXAM: He looks surprisingly well this evening having eaten e regular meals today. He is bleeding a little bit from his right foot which is bandaged. He says dinner went well. HEENT exam is remarkable for no icterus. He has no adenopathy. His lungs are clear and heart sounds are currently regular with a moderate harsh systolic murmur The abdomen is obese, symmetric with normal bowel sounds. It is soft and nontender. The exam is limited by obesity. Rectal deferred. Extremities are symmetric. LAB REVIEW: Serum sodium has remained generally in the 130s to low 140s throughout the last 14 months. HOSPITAL COURSE: Last 24 hours - he ate scrambled eggs today for breakfast and they "settled well", pot roast for lunch with the same result. He said he enjoyed veal parmesan for dinner. He ate all portions fully. He feels well. 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 Diarrhea with IBS and diabetes will be exaggerated with a high-fat diet that he eats. I do not believe that the diarrhea has been profuse enough to cause dehydration as an explanation for the abnormal mental status at times or ischemic hepatitis. A sigmoidoscopy could be done should he have lactoferrin positivity again. One such stool is nonspecific. In short, with his generally intact appetite and digestion for solid food meals and periods with no stool for a day or 2 and formed stools also punctuating reports over the last couple of months, I do not think there is any chronic colitis, secretory diarrhea or enteropathy/ malabsorption in the background here. Short-term illnesses certainly could interact with diabetic enteropathy. Addendum: the may link the lability of his complaints - would not hold cardiac care for more studies at this point [id number]/[facility] #: [id number] [place]
[2018-07-03] MEDS: Heparin VIAL(*) 5000 UNITS/ML VIAL (FIVE THOUSAND) SUBCUT SCH ×3 (06:10→21:45)
[2018-07-03] MEDS: FERRIC CITRATE 210 MG PO SCH ×3 (07:30→17:32)
[2018-07-03] MEDS: Insulin LISPRO* 1 UNITS UNIT SUBCUT SCH ×4 (07:30→21:37)
[2018-07-03] MEDS: Lisinopril TAB* 5 MG PO SCH (07:37)
[2018-07-03] MEDS: Metoprolol Tartrate TAB* 25 MG PO SCH ×2 (07:38→21:44)
[2018-07-03 07:45] LABS: ABS Basophils 0 10^3/ul (0-0.2); ABS Eosinophils 0.2 10^3/ul (0-0.6); ABS Lymphocytes 1.7 10^3/ul (1.0-4.8); ABS Monocytes 0.7 10^3/ul (0-0.8); ABS Neutrophils 4.1 10^3/ul (1.5-7.7); ABS Nucleated RBC 0 10^3/ul; Eosinophil % 3.4 %; Hematocrit 26 % (36-46); Hemoglobin 8.7 g/dL (14.0-18.0); Lymphocyte % 25.4 %; Mean Corpuscular HGB Conc 33 g/dL (31-36); Mean Corpuscular Hemoglobin 35 pg (27-31); Mean Corpuscular Volume 105 fL (80-94); Mean Platelet Volume 9.2 fL (7.4-10.4); Nucleated Red Blood Cells % 0.1; Platelet Count 195 10^3/uL (150-450); Red Blood Count 2.48 10^6 /uL (4.18-5.48); Red Cell Distribution Width 21 % (10.5-15); White Blood Count 6.9 10^3/uL (3.5-10.8)
[2018-07-03 08:05] LABS: BUN/Creatinine Ratio 3.8 (8-20); Calcium 7.9 mg/dL (8.6-10.3); EGFR African American 9.7 (>60); Magnesium 2.5 mg/dL (1.9-2.7); Potassium 3.1 mmol/L (3.5-5.0)
[2018-07-03] MEDS ORDERED: Potassium Chlor TAB* 20 MEQ TAB.ER PO ONE (08:20)
[2018-07-03] MEDS ORDERED: Loperamide CAP* 2 MG PO PRN (10:08)
--- NOTE | 2018-07-03 10:13 | PN ---
<LiangSheryl - Last Filed: 07/03/18 10:07> Subjective Date of Service: 07/03/18 - moderate to severe , AMS Interval History: No events last night. Patient offers no complaints. Denies chest pain, palpitations, sensation of heart racing, dizziness or SOB. currently in dialysis about to start treatment. BP this morning was elevated prior to medication administration. Medications Active Medications: Cinacalcet (Sensipar Tab*) 60 mg PO DAILY [facility] Last Admin: 07/02/18 14:21 Dose: Not Given Dextrose (D50w Syringe 50 Ml*) 12.5 gm IV PUSH .FOR FS < 60 - SS PRN PRN Reason: FS < 60 Ferric Citrate (Ferric Citrate Tab(Nf)) 420 mg PO TID WITH MEALS [facility] Last Admin: 07/03/18 07:30 Dose: Not Given Fluticasone Propionate (Flonase Nasal [place] 50mcg*) 2 spray BOTH NARES DAILY [facility] Last Admin: 07/02/18 10:48 Dose: 2 spray Heparin Sodium (Porcine) (Heparin Vial(*)) 5,000 units SUBCUT Q8HR [facility] Last Admin: 07/03/18 06:10 Dose: 5,000 units Insulin Human Lispro (Humalog*) 0 units SUBCUT ACHS [facility]; Protocol Last Admin: 07/03/18 07:30 Dose: Not Given Lactobacillus Rhamnosus (Lactobacillus Acidophilus*) 1 tab PO BID [facility] Last Admin: 07/02/18 20:47 Dose: 1 tab Lisinopril (Prinivil Tab*) 5 mg PO DAILY [facility] Last Admin: 07/03/18 07:37 Dose: 5 mg Metoprolol Tartrate (Lopressor Tab*) 12.5 mg PO BID [facility] Last Admin: 07/03/18 07:38 Dose: 12.5 mg Morphine Sulfate (Morphine 4 Mg/Ml Vial (1 Ml)) 2 mg IV Q4H PRN PRN Reason: PAIN - MILD Oxycodone HCl (Roxycodone Tab*) 5 mg PO Q6H PRN PRN Reason: PAIN Pantoprazole Sodium (Protonix Tab*) 40 mg PO BID [facility] Last Admin: 07/02/18 20:47 Dose: 40 mg Sertraline HCl (Zoloft*) 150 mg PO DAILY [facility] Last Admin: 07/02/18 10:46 Dose: 150 mg Simvastatin (Zocor(Nf)) 10 mg PO QPM [facility] Last Admin: 07/02/18 17:56 Dose: 10 mg Objective Vital Signs: Temp Pulse Resp BP Pulse Ox 97.6 F 65 20 186/79 98 07/03/18 07:20 07/03/18 07:20 07/03/18 08:00 07/03/18 07:20 07/03/18 07:20 Oxygen Devices in Use Now: None Appearance: well nourished, A+O x3, cooperative with exam. Ears/Nose/Mouth/Throat: NL Teeth, Lips, Gums, Mucous Membranes Moist Neck: NL Appearance and Movements; NL JVP Respiratory: Symmetrical Chest Expansion and Respiratory Effort Cardiovascular: No Edema, - - Normal S1, S2, + early systolic AV murmur Extremities: No Edema Skin: No Rash or Ulcers Neurological: Alert and Oriented x 3 Lines/Tubes/Other Access: Clean, Dry and Intact Peripheral IV Laboratory Results: 07/03/18 06:33 07/03/18 06:33 Total Bilirubin 0.60 mg/dL (0.2-1.0) 07/02/18 10:10 AST 19 U/L (13-39) 07/02/18 10:10 ALT 21 U/L (7-52) 07/02/18 10:10 Alkaline Phosphatase 117 U/L (34-104) H 07/02/18 10:10 Total Protein 6.7 g/dL (6.4-8.9) 07/02/18 10:10 Albumin 3.4 g/dL (3.2-5.2) 07/02/18 10:10 Globulin 3.3 g/dL (2-4) 07/02/18 10:10 Albumin/Globulin Ratio 1.0 (1-3) 07/02/18 10:10 TSH 1.23 mcIU/mL (0.34-5.60) 07/01/18 10:01 07/01/18 07/01/18 10:01 19:40 Troponin I 0.05 H* 0.03 Laboratory Results - last 24 hr 07/02/18 07/02/18 07/02/18 10:10 10:10 16:48 WBC 5.9 RBC 2.57 L Hgb 9.0 L Hct 27 L MCV 106 H MCH 35 H MCHC 33 RDW 21 H Plt Count 193 MPV 9.1 Neut % (Auto) 64.3 Lymph % (Auto) 24.6 [place] % (Auto) 7.5 Eos % (Auto) 2.5 Baso % (Auto) 1.1 Absolute Neuts (auto) 3.8 Absolute Lymphs (auto) 1.5 Absolute Monos (auto) 0.4 Absolute Eos (auto) 0.1 Absolute Basos (auto) 0.1 Absolute Nucleated RBC 0 Nucleated RBC % 0 Sodium 135 Potassium 3.4 L Chloride 95 L Carbon Dioxide 30 Anion Gap 10 BUN 18 Creatinine 5.87 H Est GFR ( Amer) 12.2 Est GFR (Non-Af Amer) 10.1 BUN/Creatinine Ratio 3.1 L Glucose 81 POC Glucose (mg/dL) 127 H Calcium 7.8 L Magnesium Total Bilirubin 0.60 AST 19 ALT 21 Alkaline Phosphatase 117 H Total Protein 6.7 Albumin 3.4 Globulin 3.3 Albumin/Globulin Ratio 1.0 07/02/18 07/03/18 07/03/18 19:42 06:33 06:33 WBC 6.9 RBC 2.48 L Hgb 8.7 L Hct 26 L MCV 105 H MCH 35 H MCHC 33 RDW 21 H Plt Count 195 MPV 9.2 Neut % (Auto) 60.3 Lymph % (Auto) 25.4 [place] % (Auto) 10.2 Eos % (Auto) 3.4 Baso % (Auto) 0.7 Absolute Neuts (auto) 4.1 Absolute Lymphs (auto) 1.7 Absolute Monos (auto) 0.7 Absolute Eos (auto) 0.2 Absolute Basos (auto) 0 Absolute Nucleated RBC 0 Nucleated RBC % 0.1 Sodium 136 Potassium 3.1 L Chloride 96 L Carbon Dioxide 30 Anion Gap 10 BUN 27 H Creatinine 7.20 H Est GFR ( Amer) 9.7 Est GFR (Non-Af Amer) 8.0 BUN/Creatinine Ratio 3.8 L Glucose 97 POC Glucose (mg/dL) 171 H Calcium 7.9 L Magnesium 2.5 Total Bilirubin AST ALT Alkaline Phosphatase Total Protein Albumin Globulin Albumin/Globulin Ratio 07/03/18 07:19 WBC RBC Hgb Hct MCV MCH MCHC RDW Plt Count MPV Neut % (Auto) Lymph % (Auto) [place] % (Auto) Eos % (Auto) Baso % (Auto) Absolute Neuts (auto) Absolute Lymphs (auto) Absolute Monos (auto) Absolute Eos (auto) Absolute Basos (auto) Absolute Nucleated RBC Nucleated RBC % Sodium Potassium Chloride Carbon Dioxide Anion Gap BUN Creatinine Est GFR ( Amer) Est GFR (Non-Af Amer) BUN/Creatinine Ratio Glucose POC Glucose (mg/dL) 103 H Calcium Magnesium Total Bilirubin AST ALT Alkaline Phosphatase Total Protein Albumin Globulin Albumin/Globulin Ratio Diagnostic Imaging: Echo 07/01/2018; per report. LVEF 40-45%, moderate to severe , peak 54, mean 26 , DI .24 EKG Data: Telemetry reviewed today; Sinus rhythm rate 60's. Assessment/Plan #1 AMS with loss of consciousness; Patient was reportable hypotensive at dialysis, the day prior had (6) bowel movements and has been suffering from diarrhea for 9 months according to prior GI consultation by Dr. Head. Troponin peaked at presentation at .05, no c/o chest pain. No WMA on echo. likely multifactoral given moderate to severe , ? volume contraction, he was also bradycardic ( HR 45) in the setting of recent medication changes ( Lopressor increased to 50mg PO BID, initiation of Xifaxan) SBP 200's this morning before medication initiation. It did improve to 188 after Lopressor 12.5mg and Lisinopril 5mg was given. Depending on how HR responds will likely increase Lopressor to 25mg PO BID. Avoid higher dose of ACEI given afterload reduction with now moderate to severe . Avoid Clonidine due to h/o encephalopathy with elevated ammonia level. #2 Moderate to Severe ; Peak gradient 54, mean 26 with DI .24, LVEF now 40-45% . He is to f/u with Dr. Chavez outpatient in July. Will differ evaluation for TAVR at this time given ongoing diarrhea, right foot osteomyelitis. Avoid after load reduction and volume contraction, avoid nitrate therapy. #3 h/o CAD; Last [facility] 12/2017, 40% RCA lesion. Would recommend ASA 81/day once stable to initiate this can be addressed outpatient in July with Dr. Chavez. On Bblocker and statin thearpy. #4 ESRD On HR every M, W, F. Currently getting dialysis with goal of removing 2.2kg per dialysis nurse. #5 Hypokalemia; likely related to chronic diarrhea. Will replace K+ #6 Disposition pending course, patient full code. Will follow and depending upon HR response may increase Lopressor but cautiously given HR 45 when patient presented to ER. Attending: Beth Clemons <Beth Clemons - Last Filed: 07/03/18 20:33> Medications Active Medications: Cinacalcet (Sensipar Tab*) 60 mg PO DAILY [facility] Last Admin: 07/03/18 12:47 Dose: 60 mg Dextrose (D50w Syringe 50 Ml*) 12.5 gm IV PUSH .FOR FS < 60 - SS PRN PRN Reason: FS < 60 Ferric Citrate (Ferric Citrate Tab(Nf)) 420 mg PO TID WITH MEALS [facility] Last Admin: 07/03/18 17:32 Dose: Not Given Fluticasone Propionate (Flonase Nasal [place] 50mcg*) 2 spray BOTH NARES DAILY [facility] Last Admin: 07/03/18 12:46 Dose: 2 spray Heparin Sodium (Porcine) (Heparin Vial(*)) 5,000 units SUBCUT Q8HR [facility] Last Admin: 07/03/18 14:30 Dose: 5,000 units Hydralazine HCl (Apresoline Iv*) 5 mg IV SLOW PU Q6H PRN PRN Reason: HTN Last Admin: 07/03/18 17:54 Dose: 5 mg Insulin Human Lispro (Humalog*) 0 units SUBCUT [facility]; Protocol Last Admin: 07/03/18 17:51 Dose: 2 unit Lactobacillus Rhamnosus (Lactobacillus Acidophilus*) 1 tab PO BID [facility] Last Admin: 07/03/18 12:48 Dose: 1 tab Lisinopril (Prinivil Tab*) 5 mg PO DAILY [facility] Last Admin: 07/03/18 07:37 Dose: 5 mg Loperamide HCl (Imodium Cap*) 2 mg PO .SEE DIRECTIONS PRN PRN Reason: DIARRHEA Metoprolol Tartrate (Lopressor Tab*) 25 mg PO BID [facility] Morphine Sulfate (Morphine 4 Mg/Ml Vial (1 Ml)) 2 mg IV Q4H PRN PRN Reason: PAIN - MILD Oxycodone HCl (Roxycodone Tab*) 5 mg PO Q6H PRN PRN Reason: PAIN Pantoprazole Sodium (Protonix Tab*) 40 mg PO BID [facility] Last Admin: 07/03/18 12:47 Dose: 40 mg Sertraline HCl (Zoloft*) 150 mg PO DAILY [facility] Last Admin: 07/03/18 12:47 Dose: 150 mg Sevelamer Carbonate (Renvela Tab*) 1,600 mg PO TID WITH MEALS [facility] Last Admin: 07/03/18 17:51 Dose: 1,600 mg Simvastatin (Zocor(Nf)) 10 mg PO QPM [facility] Last Admin: 07/03/18 17:51 Dose: 10 mg Objective Vital Signs: Temp Pulse Resp BP Pulse Ox 98.3 F 69 18 182/75 100 07/03/18 16:06 07/03/18 16:06 07/03/18 19:26 07/03/18 17:54 07/03/18 16:06 Laboratory Results: 07/03/18 06:33 07/03/18 06:33 Total Bilirubin 0.60 mg/dL (0.2-1.0) 07/02/18 10:10 AST 19 U/L (13-39) 07/02/18 10:10 ALT 21 U/L (7-52) 07/02/18 10:10 Alkaline Phosphatase 117 U/L (34-104) H 07/02/18 10:10 Total Protein 6.7 g/dL (6.4-8.9) 07/02/18 10:10 Albumin 3.4 g/dL (3.2-5.2) 07/02/18 10:10 Globulin 3.3 g/dL (2-4) 07/02/18 10:10 Albumin/Globulin Ratio 1.0 (1-3) 07/02/18 10:10 TSH 1.23 mcIU/mL (0.34-5.60) 07/01/18 10:01 07/01/18 07/01/18 10:01 19:40 Troponin I 0.05 H* 0.03 Assessment/Plan The patient was seen and examined by me. His significant other was present. He feels better, no diarrhea today, no weakness during or after HDialysis. His significant other is is concerned about his elevated BP. Exam: significant centropetal obesity. S1, S2, regular, 2/6 midpeaking systolic murmur RUSB to LSB, no delay in carotid upstroke. Rotund abdomen and mild/1+ edema lower legs. : Not severe on exam, I suspect moderate. Depressed EF noted. Avoid volume contraction. If anemia can be improved this may help with /diastolic dysfunction. Continue with plans for rate lowering medications to optimize diastolic filling. CM: Continue BB, low dose ACEI. HTN: High but not on a lot of medicatons. The patient has a long history with Dr Johnson and I don't have full list of medications tried, but consider dihydropyradines such as norvasc unless this has been tried in the past w/o success or it led to side effects.
[2018-07-03] MEDS ORDERED: Heparin DIALYSIS ONLY(*) 1,000 UNITS/ML VIAL DIALYSIS ONE (11:00)
[2018-07-03] MEDS ORDERED: EPOETIN ALFA-EPBX * 3,000 UNIT/ML VIAL IV ONE (11:00)
[2018-07-03] MEDS ORDERED: EPOETIN ALFA-EPBX * 2,000 UNIT/ML VIAL IV ONE (11:00)
[2018-07-03 11:46] LABS: Phosphorus 3.4 mg/dL (2.5-5.0)
[2018-07-03] MEDS: RiFAXimin* 550 MG TAB PO SCH (11:53)
--- NOTE | 2018-07-03 12:21 | PN ---
Subjective Date of Service: 07/03/18 Interval History: pt feels well. Diarrhea resoled. Denies SOB/CP/abd pain. seen at dialysis with girlfriend by the bedside Family History: Unchanged from Admission Social History: Unchanged from Admission Past Medical History: Unchanged from Admission Objective Active Medications: Cinacalcet (Sensipar Tab*) 60 mg PO DAILY [facility] Last Admin: 07/02/18 14:21 Dose: Not Given Dextrose (D50w Syringe 50 Ml*) 12.5 gm IV PUSH .FOR FS < 60 - SS PRN PRN Reason: FS < 60 Ferric Citrate (Ferric Citrate Tab(Nf)) 420 mg PO TID WITH MEALS [facility] Last Admin: 07/03/18 11:53 Dose: Not Given Fluticasone Propionate (Flonase Nasal [place] 50mcg*) 2 spray BOTH NARES DAILY [facility] Last Admin: 07/02/18 10:48 Dose: 2 spray Heparin Sodium (Porcine) (Heparin Vial(*)) 5,000 units SUBCUT Q8HR [facility] Last Admin: 07/03/18 06:10 Dose: 5,000 units Insulin Human Lispro (Humalog*) 0 units SUBCUT ACHS [facility]; Protocol Last Admin: 07/03/18 07:30 Dose: Not Given Lactobacillus Rhamnosus (Lactobacillus Acidophilus*) 1 tab PO BID [facility] Last Admin: 07/02/18 20:47 Dose: 1 tab Lisinopril (Prinivil Tab*) 5 mg PO DAILY [facility] Last Admin: 07/03/18 07:37 Dose: 5 mg Loperamide HCl (Imodium Cap*) 2 mg PO .SEE DIRECTIONS PRN PRN Reason: DIARRHEA Metoprolol Tartrate (Lopressor Tab*) 12.5 mg PO BID [facility] Last Admin: 07/03/18 07:38 Dose: 12.5 mg Morphine Sulfate (Morphine 4 Mg/Ml Vial (1 Ml)) 2 mg IV Q4H PRN PRN Reason: PAIN - MILD Oxycodone HCl (Roxycodone Tab*) 5 mg PO Q6H PRN PRN Reason: PAIN Pantoprazole Sodium (Protonix Tab*) 40 mg PO BID [facility] Last Admin: 07/02/18 20:47 Dose: 40 mg Sertraline HCl (Zoloft*) 150 mg PO DAILY [facility] Last Admin: 07/02/18 10:46 Dose: 150 mg Sevelamer Carbonate (Renvela Tab*) 1,600 mg PO TID WITH MEALS [facility] Simvastatin (Zocor(Nf)) 10 mg PO QPM [facility] Last Admin: 07/02/18 17:56 Dose: 10 mg Vital Signs - 8 hr 07/03/18 07/03/18 07:20 08:00 Temperature 97.6 F Pulse Rate 65 Respiratory 20 20 Rate Blood Pressure 186/79 (mmHg) O2 Sat by Pulse 98 Oximetry Oxygen Devices in Use Now: None Appearance: 53 yo M in nAD, aAOx3 Eyes: No Scleral Icterus, PERRLA Ears/Nose/Mouth/Throat: NL Teeth, Lips, Gums, Mucous Membranes Moist Neck: NL Appearance and Movements; NL JVP, Trachea Midline Respiratory: Symmetrical Chest Expansion and Respiratory Effort, Clear to Auscultation Cardiovascular: RRR, - - 2/6 SHANNAN Abdominal: NL Sounds; No Tenderness; No Distention, No Hepatosplenomegaly Lymphatic: No Cervical Adenopathy Extremities: No Clubbing, Cyanosis, - - trace pedal edema b/l, s/p b/l TMA Skin: No Nodules or Sclerosis, - - R bottoe of foot ulcer at 1-2 cm with serosanquineus drainage, no cellultis Neurological: Alert and Oriented x 3, NL Muscle Strength and Tone Result Diagrams: 07/03/18 06:33 07/03/18 06:33 Microbiology and Other Data: Microbiology 07/01/18 14:00 Nasal Screen MRSA (PCR) - Final Nasal Mrsa Not Detected Diagnostic Imaging: Diagnostics Summary of CT Findings [brain IMPRESSION: No intracranial mass or hemorrhage is ct] noted. THIS REPORT WAS REVIEWED BY DR. ALBERTS. Summary of EKG Findings [1001] EKG showed sinus bradycardia with rate of 45 BPM, PVCs, normal axis, non-specific ST, prolonged QTc. Assess/Plan/Problems-Clementing Mr. Singletary is a 53-year-old gentleman with a history of hypertension; diabetes with end-stage renal disease, on dialysis for 2 years; bilateral amputations in the feet with open wound on the right and osteomyelitis, on long- term antibiotic; hyperlipidemia, who has had a recent episode of diarrhea x6 on 06/30/18, has recently been put on beta [place], came in with a heart rate in the 40s, was in dialysis this morning when he became increasingly obtunded to the point where he was nonresponsive. Blood pressures were noted to be in the low 100s/60s and 50s. This is significantly lower than he used to. Normally, he runs in the 180s to 200s/100s, received IV fluids and has been admitted to the ICU for further monitoring. pressures have improved - Patient Problems (1) Altered mental state Comment: CT brain neg. MRI neg 06/07/18 when similar epoisode occured. EEG -ne seizure acitvity appreciate DR. Major's consult Suspect brain hypoperfusion in pt with SBP at 104 and mod to severe Symptoms resolved, neurologically back to baseline (2) Severe aortic stenosis Comment: and EF 45%. appreciate cardiology's consult Pt to be see by Dr. Chavez on 07/10/18 for f/u Meds adjusted (3) Hypokalemia Comment: and metabolic acidosis-due to GI loses improving May need to stop PPI in the future (4) Anemia Comment: gastric ulcer on outpatient EGD 05/01/17. continue PPI continue epogen with HD (5) Chronic osteomyelitis of right foot Comment: -MRI of R foot showed fluid collection 4 cm and osteo on 06/14/18, possibly due to lag of radiographic changes, but as per d/w Dr. Ramos pt was treated for it with anibiotics for a total 8 weeks prior and it's unlikely to be infected now. Will d/c Ceftriaxone , unfortunatley blood cx were not obtained at admission (6) Diarrhea Comment: Does not appear severely ill. h/o episodes of diarrhea x 6 months. d/c Dr. Javed: eladio functional-will start Imodium prn H/o liver failure (resolved ) and elevated ammonia- at that point started on rifaximin, will stop it now (7) ESRD (end stage renal disease) Comment: HD MWF as outpatient. (8) Hypertension Comment: h/o HTN and baseline SBP 180's at home Now SBP's in 160's after med adjustment(lowered BB and ACEI) (9) DM type 2 (diabetes mellitus, type 2) Comment: continue SSI lispro, diet controlled at home (10) QT prolongation Comment: improved with tx of hypokalemia Eladio the reason for bradycardia at admission that resolved (11) DVT prophylaxis Comment: heparin sc Status and Disposition: inpatient
[2018-07-03] MEDS: Fluticasone NASAL SPRAY 50MCG* 16 gm SPRAY BTL BOTH NARES SCH (12:46)
[2018-07-03] MEDS: Cinacalcet TAB* 30 MG PO SCH (12:47)
[2018-07-03] MEDS: Pantoprazole TAB * 40 MG TAB PO SCH ×2 (12:47→21:44)
[2018-07-03] MEDS: Sertraline* 50 MG TAB PO SCH (12:47)
[2018-07-03] MEDS: Sevelamer TAB* 800 MG PO SCH ×2 (12:48→17:51)
[2018-07-03] MEDS: Lactobacillus Acidophilus* 1 TAB PO SCH ×2 (12:48→21:44)
[2018-07-03] MEDS: CMCS:Simvastatin TAB(NF) 10 MG TAB PO SCH (17:51)
[2018-07-03] MEDS: hydrALAZINE IV* 20 MG/ML VIAL IV SLOW PU PRN (17:54)
[2018-07-04] MEDS: Heparin VIAL(*) 5000 UNITS/ML VIAL (FIVE THOUSAND) SUBCUT SCH ×3 (05:22→22:21)
[2018-07-04] MEDS: FERRIC CITRATE 210 MG PO SCH ×3 (07:18→16:49)
[2018-07-04 07:31] LABS: Calcium 8.2 mg/dL (8.6-10.3); EGFR African American 11.9 (>60); EGFR Non-African American 9.8 (>60); Magnesium 2.2 mg/dL (1.9-2.7); Potassium 3.6 mmol/L (3.5-5.0)
[2018-07-04] MEDS: Insulin LISPRO* 1 UNITS UNIT SUBCUT SCH ×4 (08:23→19:58)
[2018-07-04] MEDS: Sevelamer TAB* 800 MG PO SCH ×3 (08:24→17:38)
[2018-07-04] MEDS: Cinacalcet TAB* 30 MG PO SCH (08:24)
[2018-07-04] MEDS: Lisinopril TAB* 5 MG PO SCH (08:24)
[2018-07-04] MEDS: Metoprolol Tartrate TAB* 25 MG PO SCH ×2 (08:24→19:58)
[2018-07-04] MEDS: Lactobacillus Acidophilus* 1 TAB PO SCH ×2 (08:24→19:58)
[2018-07-04] MEDS: Pantoprazole TAB * 40 MG TAB PO SCH ×2 (08:25→19:58)
[2018-07-04] MEDS: Sertraline* 50 MG TAB PO SCH (08:25)
[2018-07-04] MEDS: Fluticasone NASAL SPRAY 50MCG* 16 gm SPRAY BTL BOTH NARES SCH (08:25)
[2018-07-04 09:04] LABS: ABS Basophils 0 10^3/ul (0-0.2); ABS Eosinophils 0.2 10^3/ul (0-0.6); ABS Lymphocytes 1.1 10^3/ul (1.0-4.8); ABS Monocytes 0.6 10^3/ul (0-0.8); ABS Neutrophils 5.9 10^3/ul (1.5-7.7); ABS Nucleated RBC 0 10^3/ul; Hematocrit 26 % (36-46); Hemoglobin 8.7 g/dL (14.0-18.0); Lymphocyte % 13.7 %; Mean Corpuscular HGB Conc 34 g/dL (31-36); Mean Corpuscular Hemoglobin 35 pg (27-31); Mean Corpuscular Volume 105 fL (80-94); Mean Platelet Volume 8.9 fL (7.4-10.4); Nucleated Red Blood Cells % 0.1; Platelet Count 205 10^3/uL (150-450); Red Blood Count 2.49 10^6 /uL (4.18-5.48); Red Cell Distribution Width 21 % (10.5-15); White Blood Count 7.9 10^3/uL (3.5-10.8)
[2018-07-04] MEDS ORDERED: Benzocaine/Menthol LOZ* 1 LOZENGE PO PRN (12:27)
[2018-07-04] MEDS ORDERED: Benzocaine/Menthol LOZ* 1 LOZENGE PO ONE (12:28)
[2018-07-04] MEDS: hydrALAZINE IV* 20 MG/ML VIAL IV SLOW PU PRN (12:32)
--- NOTE | 2018-07-04 13:50 | PN ---
Subjective Date of Service: 07/04/18 Interval History: Pt feels "hot and cold", this am was nauseated. SBP had been in 180's intermittently Had a formed BM today Family History: Unchanged from Admission Social History: Unchanged from Admission Past Medical History: Unchanged from Admission Objective Active Medications: Cinacalcet (Sensipar Tab*) 60 mg PO DAILY [facility] Last Admin: 07/04/18 08:24 Dose: 60 mg Dextrose (D50w Syringe 50 Ml*) 12.5 gm IV PUSH .FOR FS < 60 - SS PRN PRN Reason: FS < 60 Ferric Citrate (Ferric Citrate Tab(Nf)) 420 mg PO TID WITH MEALS [facility] Last Admin: 07/04/18 11:57 Dose: Not Given Fluticasone Propionate (Flonase Nasal [place] 50mcg*) 2 spray BOTH NARES DAILY [facility] Last Admin: 07/04/18 08:25 Dose: 2 spray Heparin Sodium (Porcine) (Heparin Vial(*)) 5,000 units SUBCUT Q8HR [facility] Last Admin: 07/04/18 05:22 Dose: 5,000 units Hydralazine HCl (Apresoline Iv*) 5 mg IV SLOW PU Q6H PRN PRN Reason: HTN Last Admin: 07/04/18 12:32 Dose: 5 mg Insulin Human Lispro (Humalog*) 0 units SUBCUT [facility]; Protocol Last Admin: 07/04/18 11:56 Dose: Not Given Lactobacillus Rhamnosus (Lactobacillus Acidophilus*) 1 tab PO BID [facility] Last Admin: 07/04/18 08:24 Dose: 1 tab Lisinopril (Prinivil Tab*) 10 mg PO DAILY [facility] Loperamide HCl (Imodium Cap*) 2 mg PO .SEE DIRECTIONS PRN PRN Reason: DIARRHEA Metoprolol Tartrate (Lopressor Tab*) 25 mg PO BID [facility] Last Admin: 07/04/18 08:24 Dose: 25 mg Morphine Sulfate (Morphine 4 Mg/Ml Vial (1 Ml)) 2 mg IV Q4H PRN PRN Reason: PAIN - MILD Oxycodone HCl (Roxycodone Tab*) 5 mg PO Q6H PRN PRN Reason: PAIN Pantoprazole Sodium (Protonix Tab*) 40 mg PO BID [facility] Last Admin: 07/04/18 08:25 Dose: 40 mg Sertraline HCl (Zoloft*) 150 mg PO DAILY [facility] Last Admin: 07/04/18 08:25 Dose: 150 mg Sevelamer Carbonate (Renvela Tab*) 1,600 mg PO TID WITH MEALS [facility] Last Admin: 07/04/18 11:57 Dose: Not Given Simvastatin (Zocor(Nf)) 10 mg PO QPM [facility] Last Admin: 07/03/18 17:51 Dose: 10 mg Throat Lozenges (Chloraseptic Isis*) 1 isis PO Q6H PRN PRN Reason: SORE THROAT Vital Signs - 8 hr 07/04/18 07/04/18 07/04/18 07:40 07:57 11:10 Temperature 97.8 F 97.7 F Pulse Rate 75 71 Respiratory 18 17 20 Rate Blood Pressure 168/74 181/84 (mmHg) O2 Sat by Pulse 93 Oximetry Oxygen Devices in Use Now: None Appearance: 53 yo M in nAD, AAOx3 Eyes: No Scleral Icterus, PERRLA Ears/Nose/Mouth/Throat: NL Teeth, Lips, Gums, Mucous Membranes Moist Neck: NL Appearance and Movements; NL JVP, Trachea Midline Respiratory: Symmetrical Chest Expansion and Respiratory Effort, Clear to Auscultation Cardiovascular: NL Sounds; No Murmurs; No JVD, RRR Abdominal: NL Sounds; No Tenderness; No Distention Lymphatic: No Cervical Adenopathy Extremities: - - b/l TMA, R foot -bottom -small ucler at 1-2 cm with serous tinged with blood drainage(scant) Skin: No Nodules or Sclerosis Neurological: Alert and Oriented x 3, NL Muscle Strength and Tone Result Diagrams: 07/04/18 07:02 07/04/18 07:02 Microbiology and Other Data: Microbiology 07/01/18 14:00 Nasal Screen MRSA (PCR) - Final Nasal Mrsa Not Detected Diagnostic Imaging: Diagnostics Summary of CT Findings [brain IMPRESSION: No intracranial mass or hemorrhage is ct] noted. THIS REPORT WAS REVIEWED BY DR. ALBERTS. Summary of EKG Findings [1001] EKG showed sinus bradycardia with rate of 45 BPM, PVCs, normal axis, non-specific ST, prolonged QTc. Assess/Plan/Problems-Adelfo Singletary is a 53-year-old gentleman with a history of hypertension; diabetes with end-stage renal disease, on dialysis for 2 years; bilateral amputations in the feet with open wound on the right and osteomyelitis, on long- term antibiotic; hyperlipidemia, who has had a recent episode of diarrhea x6 on 06/30/18, has recently been put on beta [place], came in with a heart rate in the 40s, was in dialysis this morning when he became increasingly obtunded to the point where he was nonresponsive. Blood pressures were noted to be in the low 100s/60s and 50s. This is significantly lower than he used to. Normally, he runs in the 180s to 200s/100s, received IV fluids and has been admitted to the ICU for further monitoring. pressures have improved - Patient Problems (1) Chronic osteomyelitis of right foot Comment: -MRI of R foot showed fluid collection 4 cm and osteo on 06/14/18, possibly due to lag of radiographic changes, but as per d/w Dr. Ramos pt was treated for it with antibiotics for a total 8 weeks prior and it's unlikely to be infected now. Ceftriaxone d/c'd on 07/03/18 cont to monitor. Nusea and feeling cold coulf be a symptoma of infection. Spoke with ortho-the service will eval pt (2) Hypertension Comment: h/o HTN and baseline SBP 180's at home Now SBP's back to being uncontrolled to 180's, will adjust ,meds to increase Lisinopril back to 10 mg. cont hydralazine prn (3) Altered mental state Comment: CT brain neg. MRI neg 06/07/18 when similar epoisode occured. EEG -ne seizure acitvity appreciate DR. Major's consult Suspect brain hypoperfusion in pt with SBP at 104 and mod to severe Symptoms resolved, neurologically back to baseline (4) Severe aortic stenosis Comment: and EF 45%. appreciate cardiology's consult Pt to be see by Dr. Chavez on 07/10/18 for f/u Meds adjusted (5) Hypokalemia Comment: and metabolic acidosis-due to GI loses improving May need to stop PPI in the future (6) Anemia Comment: gastric ulcer on outpatient EGD 05/01/17. continue PPI continue epogen with HD (7) Diarrhea Comment: Does not appear severely ill. h/o episodes of diarrhea x 6 months. d/c Dr. Javed: eladio functional-will start Imodium prn H/o liver failure (resolved ) and elevated ammonia- at that point started on rifaximin-stopped on 07/03/18 (8) ESRD (end stage renal disease) Comment: HD MWF as outpatient. (9) DM type 2 (diabetes mellitus, type 2) Comment: continue SSI lispro, diet controlled at home (10) QT prolongation Comment: improved with tx of hypokalemia [place] the reason for bradycardia at admission that resolved (11) DVT prophylaxis Comment: heparin sc Status and Disposition: inpatient
[2018-07-04] MEDS: CMCS:Simvastatin TAB(NF) 10 MG TAB PO SCH (17:38)
[2018-07-05] MEDS: hydrALAZINE IV* 20 MG/ML VIAL IV SLOW PU PRN ×2 (03:49→12:22)
[2018-07-05] MEDS: Heparin VIAL(*) 5000 UNITS/ML VIAL (FIVE THOUSAND) SUBCUT SCH (05:31)
[2018-07-05 06:12] LABS: ABS Basophils 0.1 10^3/ul (0-0.2); ABS Eosinophils 0.1 10^3/ul (0-0.6); ABS Lymphocytes 1.3 10^3/ul (1.0-4.8); ABS Monocytes 0.8 10^3/ul (0-0.8); ABS Neutrophils 6.3 10^3/ul (1.5-7.7); ABS Nucleated RBC 0 10^3/ul; Eosinophil % 1.7 %; Hematocrit 25 % (36-46); Hemoglobin 8.5 g/dL (14.0-18.0); Lymphocyte % 15.1 %; Mean Corpuscular HGB Conc 34 g/dL (31-36); Mean Corpuscular Hemoglobin 36 pg (27-31); Mean Corpuscular Volume 105 fL (80-94); Mean Platelet Volume 8.8 fL (7.4-10.4); Nucleated Red Blood Cells % 0; Platelet Count 186 10^3/uL (150-450); Red Blood Count 2.39 10^6 /uL (4.18-5.48); Red Cell Distribution Width 21 % (10.5-15); White Blood Count 8.6 10^3/uL (3.5-10.8)
[2018-07-05 06:20] LABS: BUN/Creatinine Ratio 3.3 (8-20); C Reactive Protein 57.64 mg/L (<8.01); Calcium 8.4 mg/dL (8.6-10.3); EGFR African American 9.4 (>60); EGFR Non-African American 7.8 (>60); Potassium 3.7 mmol/L (3.5-5.0)
[2018-07-05] MEDS ORDERED: Lisinopril TAB* 10 MG PO SCH ×2 (09:00)
[2018-07-05] MEDS ORDERED: EPOETIN ALFA-EPBX * 10,000 UNIT/ML VIAL IV ONE (10:30)
[2018-07-05] MEDS ORDERED: Heparin DIALYSIS ONLY(*) 1,000 UNITS/ML VIAL DIALYSIS ONE (11:00)
[2018-07-05] MEDS: Insulin LISPRO* 1 UNITS UNIT SUBCUT SCH ×2 (11:46→12:36)
[2018-07-05] MEDS: FERRIC CITRATE 210 MG PO SCH ×2 (11:50→11:56)
[2018-07-05] MEDS: Sevelamer TAB* 800 MG PO SCH ×2 (11:51→11:56)
[2018-07-05] MEDS: Lactobacillus Acidophilus* 1 TAB PO SCH (11:53)
[2018-07-05] MEDS: Metoprolol Tartrate TAB* 25 MG PO SCH (11:54)
[2018-07-05] MEDS: Fluticasone NASAL SPRAY 50MCG* 16 gm SPRAY BTL BOTH NARES SCH (11:54)
[2018-07-05] MEDS: Sertraline* 50 MG TAB PO SCH (11:54)
[2018-07-05] MEDS: Pantoprazole TAB * 40 MG TAB PO SCH (11:54)
[2018-07-05] MEDS: Cinacalcet TAB* 30 MG PO SCH (11:54)
[2018-07-05 12:54] VITALS: BP 176/86
--- NOTE | 2018-07-05 15:48 | DS ---
CC: VANDANA Velez; Dr. Johnson; Dr. Adrián Louis, Orthopedic Surgery; Dr. Javed; Dr. Clemons; Dr. Chavez; Dr. Tejada, Cardiology; Dr. Major, Neurology; Dr. Mcwilliams; Josy Krishna NP* DISCHARGE SUMMARY: DATE OF ADMISSION: 07/01/18 DATE OF DISCHARGE: To home, 07/05/18 PRIMARY CARE PROVIDER: VANDANA Velez CONDITION ON DISCHARGE: Stable. DISCHARGE DIAGNOSES: 1. Altered mental status with the patient being basically obtunded at admission to the intensive care unit on 07/01/18, likely due to combination of brain hypoperfusion in a patient with systolic pressures in the low 100s, who normally runs in the 180s due to likely symptomatic [id number] aortic stenosis. 2. Bradycardia and QT prolongation due to a combination of recent increase of beta berlin, Lopressor that was increased prior to the patient's hospital stay to 50 mg b.i.d. as well as severe hypokalemia. 3. History of episodes of profuse diarrhea and hypokalemia as well as metabolic alkalosis in a patient, who at this point was diagnosed with functional diarrhea, but did not receive colonoscopy during the hospital stay. 4. History of chronic right foot osteomyelitis, status post 8 weeks of antibiotic treatment that ended in May of 2018. The patient's findings of osteomyelitis on MRI obtained at the beginning of June 2018 are likely chronic. SECONDARY DIAGNOSES: 1. History of end-stage renal disease, on hemodialysis. 2. History of chronic episode of diarrhea for over 6 months now with an episode of liver hypoperfusion and marked elevation of liver function tests with hepatic encephalopathy at the beginning of June 2018 that resolved. 3. Diabetes type 2, diet controlled. 4. Hypertension. 5. History of mitral regurgitation. 6. Gout. 7. History of anemia of chronic disease. 8. Status post hernia repair. 9. Status post bilateral transmetatarsal amputations. 10. ORIF of the left ankle in the past. 11. Skin graft to the right heel. MEDICATIONS ON DISCHARGE: Include: 1. Imodium 2 mg to take 1 tablet after 2 stools and after each consequent stool , so a total of 3 tablets a day. 2. Metoprolol tartrate with lower dose at 25 mg b.i.d. 3. Omeprazole 20 mg b.i.d. 4. Oxycodone 5 mg on a p.r.n. basis. 5. Vitamin B complex 1 capsule daily. 6. Zocor 10 mg daily. 7. Zoloft 150 mg daily. 8. Prinivil 10 mg at bedtime. 9. Fluticasone nasal spray, 2 sprays both nostrils daily. 10. Ferric citrate 420 mg 3 times a day. 11. Sensipar 60 mg daily. ALLERGIES: Please note that although the patient has no allergies noted, he does have GI intolerance to Renvela. CONSULTATIONS DURING THE HOSPITAL STAY: Included: 1. Dr. Major from Neurology. 2. Dr. Clemons from Cardiology. The patient was also briefly seen by the orthopedic service during this hospital stay. Also, Dr. Mcwilliams and Josy Krishna, from Infectious Diseases. LABORATORY DATA AND STUDIES PERFORMED DURING THE HOSPITAL STAY: On 07/05/18, white blood cell count of 8.6, hemoglobin 8.5, hematocrit 25, MCV of 105, and platelets of 186. Sodium was 135, potassium 3.7, chloride 99, carbon dioxide 25, BUN 24, creatinine 7.38. C-reactive protein on the day of discharge was 57.6. ABG obtained on 07/01/18 showed pH of 7.52, PCO2 of 41, PO2 of 178, bicarb of 32.5. EEG obtained on 07/02/18, impression: "This is a sleep and briefly awake EEG that showed no epileptiform potentials. The patient appeared excessively drowsy during the tracing and briefly awake with a relatively normal background , but then becomes drowsy again and with further slowing. Of note, there was a minor asymmetry of more slowing in the right hemisphere during a portion of the sleep tracing than the left side." Echo obtained on 07/01/18 showed "moderate concentric LVH with EF of 40% to 45% with [id number] aortic stenosis with gradient across the aortic valve of 2.6 mmHg and calculated aortic valve area of 0.8 sq. m." Compared to studies from January of 2017, the LV function is lower and the degree of is much worse. Brain CT obtained on admission, impression: "No intracranial mass or hemorrhage noted." HOSPITALIZATION COURSE: Sreekanth Singletary is a 53-year-old male with history of episodes of diarrhea, which was thought to precipitate his marked LFT elevation and hepatic encephalopathy, marked increase of ammonia at the beginning of June 2018, which resolved, who was at his dialysis on 07/01/18, noted to be lethargic with systolic pressure at 104. The patient was noted to have 6 episodes of very loose stools the night prior. Apparently, his diarrhea resolved for the past couple of weeks until it recurred the day prior to admission. His dialysis was continued when we were watching the patient's neuro status, but unfortunately, at the end of dialysis, he became nearly obtunded and he was transferred to the ER for origin evaluation. At this point , the patient was basically obtunded. He withdrew to pain in all 4 extremities equally, but he was nonverbal and not responding to any other stimuli. His systolic pressures continued to be in the low 100s. He was noted to have QT prolongation as well as sinus bradycardia as well as marked hypokalemia with potassium level of 2.4. The patient also had metabolic alkalosis. It was thought that the patient may be hypoperfusing and he was relatively hypotensive since normally he runs his systolic pressures in the 180s as informed by his girlfriend by the bedside, and the hypokalemia and metabolic alkalosis were thought to be related to diarrhea. The patient was initially admitted to the intensive care unit and after resuscitation with intravenous fluids, his mental state recovered back to baseline within 12 hours. In the interim, he was seen by Dr. Major from Neurology, who recommended CT of the brain and EEG, which as mentioned above was basically unremarkable. During the patient's workup, he was noted to have ukktxvrg-ae-imcikl aortic stenosis, which is new for the patient and decreased EF of 40% to 45%. Dr. Clemons saw the patient in consultation. At that point, the patient's medications were adjusted, although his blood pressure started raising again. His lisinopril was restarted and metoprolol that was initially held at admission was restarted slowly. Those were both titrated to lisinopril at 10 mg daily and metoprolol 25 mg b.i.d. It was noted that the patient's systolic pressures ranged from the 180s to 150s for the next couple of days of his hospital stay. They may still need to be more titrated in the future, but once again caution is advised due to the patient's recent 2 admissions that were thought to be due to hypoperfusion. In regards to the patient's diarrhea, Dr. Javed saw the patient in consultation. Noted the patient has episodes of diarrhea, which should not warrant another colonoscopy. The patient had pretty unremarkable colonoscopy within the past year or so. At this point, culture manager's diagnosis is likely functional diarrhea and Imodium on an as-needed basis was recommended. Please also note that the patient was empirically treated with ceftriaxone throughout his hospital stay due to his history of chronic right osteomyelitis in this patient, who presented with hypotension. He continued to be nontoxic appearing for remaining part of his hospital stay and on 07/03/18, his ceftriaxone was held. The patient was observed until 07/04/18 and at that point , after he took Renvela as recommended by Nephrology, he developed nausea and chills. At that point, the decision was made to observe the patient yet another day of antibiotics. We curb-sided the orthopedic service and the patient is to follow up with Dr. Louis, orthopedic service, in approximately 2 weeks after discharge. His nausea and chills recovered and it is suspected that the patient had this effect/reaction to Renvela. At that point, Renvela was discontinued. The patient needs to be continued on ferric citrate as previously used as his phosphate binder. Please also note that the patient's chronic wound on the bottom of right foot covered with eschar, opened up a couple of days prior to admission and started draining. The patient still has his eschar on the area of bottom of the right foot that was approximately 2 cm in diameter, but the middle of it became soft and is draining serosanguineous fluid. The drainage is scant and once again that was discussed with orthopedic service and the patient will have followup at discharge. At this point, the suspicion is that the patient has alteration of mental status due to a combination of brain hypoperfusion with relatively low systolic blood pressures after dehydration and profuse diarrhea in combination with moderate-to- severe aortic stenosis. Dr. Clemons saw the patient in consultation and recommended followup with Dr. Chavez within the next week for consideration of transaortic valve replacement. At discharge, the patient feels well. He complains of no pain. He had 1 scant loose bowel movement in the morning and he is going to be discharged home with recommendation to follow up with Dr. Mcwilliams in a couple of weeks, Dr. Chavez as already scheduled within the next week, Dr. Johnson at dialysis. The patient also is to call Dr. Louis's office from Orthopedic Surgery and schedule followup in the next couple of weeks. PHYSICAL EXAM AT THE TIME OF DISCHARGE: Blood pressure 170/86, heart rate of 79 and regular, respiratory rate 20, oxygen saturation 93% on room air, temperature 97.7. General: The patient is a pleasant 53-year-old male, who is in no acute distress. Alert, awake, and oriented x3. HEENT: Head, atraumatic and normocephalic. Eyes: Pupils are equal, round, reactive to light and accommodation. Oropharynx clear, mucosa moist. Neck: Supple. No JVD, no bruits bilaterally. Cardiovascular: Regular rate and rhythm. A 3/6 ejection murmur on auscultation of the right upper sternal border. Respiratory: Clear to auscultation bilaterally. Abdomen: Soft and nontender. Bowel sounds present in all 4 quadrants. Extremities: There is bilateral trace ankle pedal edema. Pulses are +2 bilaterally. The patient has bilateral foot TMA noted with bilateral stumps healed well, but the bottom of the right foot, the patient has a small chronic ulceration covered with eschar with partially open wound that is unstageable and is draining serosanguineous liquid. Overall, the wound is approximately 1.5 cm in diameter. On neuro evaluation, speech is clear. Cranial nerves II through XII are grossly intact. Motor strength is 5/ 5 bilaterally. Please note that this is a short summary of the patient's hospital stay. Please refer to further medical records for details. TIME SPENT: Approximately, 50 minutes was spent on the patient's discharge. [id number]/[facility] #: [id number] [facility]
== END 2018-07-05 13:10 | disposition home or self-care (01) | DRG 200 ==
LOC: ED 09:40 → ICU 12:47 → MEDTELE 07-02 17:33
PROVIDERS: ADMIT Internal Medicine; ATTEND Internal Medicine
PROC: 5A1D70Z Performance of Urinary Filtration, Intermittent, Less than 6 Hours Per Day (ICD-10-PCS; principal; 2018-07-03)
PROC: 4A10X4Z Monitoring of Central Nervous Electrical Activity, External Approach (ICD-10-PCS; 2018-07-03)
DX: I08.3 Combined rheumatic disorders of mitral, aortic and tricuspid valves (principal); N18.6 End stage renal disease; I12.0 Hypertensive chronic kidney disease with stage 5 chronic kidney disease or end stage renal disease; M86.671 Other chronic osteomyelitis, right ankle and foot; E87.3 Alkalosis; Z68.41 Body mass index [BMI] 40.0-44.9, adult; E11.22 Type 2 diabetes mellitus with diabetic chronic kidney disease; E87.6 Hypokalemia; E11.621 Type 2 diabetes mellitus with foot ulcer; F32.9 Major depressive disorder, single episode, unspecified; E78.00 Pure hypercholesterolemia, unspecified; J45.909 Unspecified asthma, uncomplicated; M10.9 Gout, unspecified; M19.042 Primary osteoarthritis, left hand; M19.041 Primary osteoarthritis, right hand; I49.3 Ventricular premature depolarization; E11.69 Type 2 diabetes mellitus with other specified complication; I95.9 Hypotension, unspecified; K52.9 Noninfective gastroenteritis and colitis, unspecified; D64.9 Anemia, unspecified; Z66 Do not resuscitate; I45.81 Long QT syndrome; E86.0 Dehydration; I25.10 Atherosclerotic heart disease of native coronary artery without angina pectoris; E78.5 Hyperlipidemia, unspecified; E66.01 Morbid (severe) obesity due to excess calories; E11.40 Type 2 diabetes mellitus with diabetic neuropathy, unspecified; Z89.421 Acquired absence of other right toe(s); Z89.411 Acquired absence of right great toe; Z83.3 Family history of diabetes mellitus; Z99.2 Dependence on renal dialysis; Z80.0 Family history of malignant neoplasm of digestive organs; Z89.432 Acquired absence of left foot; Z89.431 Acquired absence of right foot; Z82.49 Family history of ischemic heart disease and other diseases of the circulatory system
CPT/HCPCS: 36415; 36600; 70450; 80048; 80053; 80329; 82140; 82330; 82803; 83605; 83735; 84100; 84443; 84484; 85025; 86140; 87641; 93005; 93306; 95819; 99285; A9270-GY; C8929; G0480; J0360; J0461; J0610; J0696; J1644; J2310; J3370; J3475; J3480; Q5106

== ENCOUNTER 2018-08-07 11:57 | Emergency (ER) | payer MEDICARE, BC ==
--- OUTSIDE RECORDS SUMMARY | 2018-08-07 12:09 | XMS REPORT | Continuity of Care Document ---
:1965 External Reference #:[id number] Author Name Larissa Mendes Care Team Providers Name Role Phone Lety Santamaria PA Primary Care Physician Unavailable Payers Date Identification Numbers Payment Provider Subscriber Effective: Policy Number: [id number] [facility] Katy Jacobo Mary Alice 2010 PayID: [id number] [address] [address] [place] [address] Policy Number: [id number] Medicare Katy Jacobo Mary Alice PayID: [id number] [address] [place] [address] Advance Directives Type Date Description Status Comment Other Directive 06/14/2018 Health Care Proxy Current and Verified Problems Active Problems Provider Date Chronic osteomyelitis of ankle Adrián Louis M.D. Onset: 02/03/2015 and/or foot Mitral valve disorder William Chavez M.D., [facility], Onset: 03/30/2017 [facility] Essential hypertension William Chavez M.D., [facility], Onset: 03/30/2017 [facility] Aortic valve disorder William Chavez M.D., [facility], Onset: 07/17/2018 [facility] Family History Date Family Member(s) Observation Comments General Father-[place] General mother- due to liver cancer. General paternal cmchnynxarq-[id number]-ZES General Maternal grandfather-heart disease- due to General - 12/2016-[place] Father Heart Disease Mother due to Liver Cancer () - age 60 something Siblings 1 sister- 51-Guillian Brighton syndrome as a teenager Social History Type Date Description Comments Sex Unknown Marital Status Lives With Patient in december-2016 Lives With Alone Occupation Disabled in 2017 ETOH Use Occasionally consumes alcohol Tobacco Use Start: Unknown Patient has never smoked Recreational Drug Use Denies Drug Use Smoking Status Reviewed: 07/17/18 Patient has never smoked Exercise Type/Frequency Does not exercise Allergies, Adverse Reactions, Alerts Active Allergies Reaction Severity Comments Date NKDA 02/04/2013 Grass 03/30/2017 Medications Active Medications SIG Qnty Indications Ordering Date Provider Cholestyramine one each 14units Garry Abraham 07/15/2018 4gm Packet vlad Javed MD Pantoprazole Sodium 1 by mouth Unknown 40mg twice a day Tablets DR Vitamin B Complex 1 by mouth Unknown Tablets every day Ferric Citrate 420 MG 1 po tid with Unknown meals Sertraline HCL 3 tabs by mouth Unknown 100mg every day Tablets Oxycodone HCL 1 tab by mouth Unknown 5mg Capsules every 6 hours as needed pain Metoprolol Tartrate 1 by mouth Unknown 50mg twice a day Tablets Lisinopril 1 by mouth Unknown 10mg Tablets every day Fluticasone Propionate 2 puffs each Unknown nare every in 50mcg/Act Suspension the morning Cinacalcet HCL Take 2 Tablets Unknown 60mg Tablets By Mouth Every Day Afua-Dennis 1 tab daily Unknown Tablets Renvela twice daily Unknown 800mg Tablets Omeprazole Take 1 Capsule Unknown 20mg Capsules DR By Mouth Once Daily Acetaminophen 2 tabs 3x a day Unknown 325mg Tablets as needed Simvastatin take 1 tablet Unknown 10mg Tablets by mouth at bedtime History Medications Metronidazole 1 [...] DR food (on hold as of 06/04/18) Desdemona 1 tab by mouth q6 20tabs Adrián Louis, 04/06/2017 - 5-325mg Tablets hours as needed M.D. 05/24/2017 pain Desdemona 1 tab by mouth q6 20tabs Boom Hassan 02/27/2017 - 5-325mg Tablets hours as needed MD Tobin 03/29/2017 pain Bactrim DS 1 by mouth twice 40tabs M86.671 Adrián Louis, 04/15/2015 - 800-160mg a day M.D. 07/26/2015 Tablets Aspirin 1 by mouth every Unknown - 81mg Tablets day 03/27/2017 Amoxicillin/Clavulana 1 by mouth Daily Unknown - te Potassium has 21 days left 04/27/2017 500-125mg as of 03/30/17 Tablets Oxycodone HCL Nicholas Gomez, - 5mg M.D. Unknown Tablets Ranitidine HCL once daily Nicholas Gomez, - 300mg M.D. 06/17/2018 Capsules Metoprolol Tartrate 1 tab daily Nicholas Gomez, - M.D. 06/17/2018 25mg Tablets Gabapentin Nicholas Gomez, - 100mg M.D. Unknown Capsules Senna 2 tabs by mouth Unknown - 8.6mg Tablets 1-2 times daily 06/04/2018 as needed Sensipar 1 tab daily Unknown - 90mg Tablets 06/17/2018 Zoloft 1 by mouth every Unknown - 50mg Tablets day 06/21/2018 Aspirin 1 by mouth every Unknown - 81mg Tablets DR day 07/16/2018 Doxycycline Hyclate Take 1 Capsule By Unknown - Mouth Every Day 05/17/2018 100mg Capsules Lactobacillus Extra 1 cap by mouth Unknown - Strength twice a day 06/27/2018 Capsules Xifaxan 1 by mouth two Unknown - 550mg Tablets times a day 07/16/2018 Colace 1 tab by mouth Unknown - [...] Available Vital Signs Date Vital Result Comment 07/17/2018 11:04am Height 71 inches 5'11" Weight 252.00 lb with shoes Heart Rate 80 /min BP Systolic Sitting 160 mmHg lue reg cuff BP Diastolic Sitting 80 mmHg lue reg cuff BP Systolic Standing 158 mmHg lue reg cuff BP Diastolic Standing 80 mmHg lue reg cuff Respiratory Rate 16 /min BMI (Body Mass Index) 35.1 kg/m2 Ejection Fraction 40-45% echo. 07/01/18 07/15/2018 2:04pm Height 71 inches 5'11" Weight 258.00 lb Heart Rate 88 /min BP Systolic 150 mmHg BP Diastolic 88 mmHg Respiratory Rate 18 /min Body Temperature 99.2 F Pain Level 0 BMI (Body Mass Index) 36.0 kg/m2 07/08/2018 2:57pm Height 71 inches 5'11" Weight 273.25 lb Heart Rate 73 /min BP Systolic Sitting 109 mmHg BP Diastolic Sitting 57 mmHg O2 % BldC Oximetry 96 % BMI (Body Mass Index) 38.1 kg/m2 06/28/2018 10:54am Height 71 inches 5'11" Weight [...] Test Result H/L Range Note Laboratory test [facility] Surgical SEE RESULT 1 finding [address] [place] [address] [phone] Stool Occult [facility] Stool Occult SEE RESULT 2 Blood Diag [address] Blood, [place] [address] [phone] Inr/Protime [facility] Inr 1.47 High 0.82-1.09 [address] [place] [address] [phone] Laboratory test [facility] B-Type > 1300 High <=[address] Natriuretic pg/[place] [address] Peptide BNP [phone] Pathologist Review (SEE NOTE) 4 Manual Differential 07/11/2018 [facility] Neutrophil % 69.0 % [address] [place], [place] [id number] [phone] Lymphocytes % 18.0 % Monocytes % 10.0 % Eosinophils % 3.0 % Abs Neutrophils 9.2 10^3/uL High 1.5-7.7 Abs Lymphocytes 2.4 10^3/uL N 1.0-4.8 Abs Monocytes 1.3 10^3/uL High 0-0.8 Abs Eosinophils 0.4 10^3/uL N 0-0.6 Macrocytosis 2+ Anisocytosis 2+ Rouleaux 2+ Inr/Protime 07/11/2018 [facility] Inr 1.47 High 0.82-1.[address] [place] [address] [phone] Laboratory test 07/11/2018 [facility] Ammonia 53 mcmol/L N 16- [address] [place] [address] [phone] CBC Auto Diff 07/11/2018 [facility] Platelet Platelets High 150-[address] [facility] Count clumpe <[place] [address] NOTE> [phone] 10^3/uL Red Blood Count 2.61 10^6/uL Low 4.18-5.48 Hemoglobin 8.9 g/dL Low 14.0-18.0 Hematocrit 28 % Low 42-52 Mean Corpuscular Volume 106 fL High 80-94 7 Mean Corpuscular Hemoglobin 34 pg High 27-31 Mean Corpuscular HGB Conc 32 g/dL N 31-36 Red Cell Distribution Width 20 % High 10.5-15 8 White Blood Count 13.3 10^3/uL High 3.5-10.8 9 Comp Metabolic Panel 07/11/2018 [facility] Sodium 141 mmol/L N 135-[address] [place] [address] [phone] Potassium 3.4 mmol/L Low 3.5-5.0 Chloride 98 mmol/L Low 101-111 Co2 Carbon Dioxide 31 mmol/L N 22-32 Anion Gap 12 mmol/L High 2-11 Glucose 180 mg/dL High 70-100 Blood Urea Nitrogen 18 mg/dL N 6-24 Creatinine 6.67 mg/dL High 0.67-1.17 BUN/Creatinine Ratio 2.7 Low 8-20 Calcium 8.1 mg/dL Low 8.6-10.3 Total Protein 7.5 g/dL N 6.4-8.9 Albumin 4.0 g/dL N 3.2-5.2 Globulin 3.5 g/dL N 2-4 Albumin/Globulin Ratio 1.1 N 1-3 Total Bilirubin 0.70 mg/dL N 0.2-1.0 Alkaline Phosphatase 114 U/L High 34-104 Alt 15 U/L N 7-52 Ast 18 U/L N 13-39 Egfr Non- 8.7 >60 Egfr 10.5 >60 10 Laboratory test 07/11/2018 [facility] Vitamin B12 560 pg/mL N 180-[address] [place] [address] [phone] Iron & Iron 07/11/2018 [facility] Iron 61 g/dL N 50-[address] [place] [address] [phone] Unsaturated Iron Binding < 227 g/dL Total Iron Binding Capacity 242 g/dL Low 250-450 Transferrin 173 mg/dL Low 203-362 % Iron Saturation 25 % N 15-55 Laboratory test 07/11/2018 [facility] C Reactive 23.60 mg/L High <8.[address] [place] [address] [phone] Ferritin 1290.9 ng/mL High 24-336 Hemoglobin A1c (Glyco HGB) 5.4 % N 4.0-5.6 12 Laboratory test 06/28/2018 [facility] C Reactive 16.24 mg/L High <8.[address] [place] [address] [phone] Laboratory test 06/04/2018 [facility] C Difficile SEE RESULT [address] [place] [address] [phone] Inr/Protime 05/10/2018 [facility] Inr 1.37 High 0.77-1.[address] [place] [address] [phone] Laboratory test 05/10/2018 [facility] Partial 33.6 N 26.0- 36.[address] [place] [address] PTT [phone] CBC Auto Diff 05/10/2018 [facility] White Blood 7.3 10^3/uL N 3.5-10.[address] [place] [address] [phone] Red Blood Count 2.68 10^6/uL Low 4.00-5.40 [...] Cells % 0 Basic Metabolic Panel 05/10/2018 [facility] Sodium 138 mmol/L N 135-[address] [place] [address] [phone] Potassium 2.9 mmol/L Low 3.5-5.0 Chloride 92 mmol/L Low 101-111 Co2 Carbon Dioxide 36 mmol/L High 22-32 Anion Gap 10 mmol/L N 2-11 Glucose 103 mg/dL High 70-100 Blood Urea Nitrogen 15 mg/dL N 6-24 Creatinine 4.01 mg/dL High 0.67-1.17 BUN/Creatinine Ratio 3.7 Low 8-20 Calcium 9.1 mg/dL N 8.6-10.3 Egfr Non- 15.7 >60 Egfr 19.0 >60 14 Laboratory test 03/29/2018 [facility] Tissue SEE RESULT 15 , [address] Culture & [place] [address] Sensitiv [phone] Basic Metabolic 01/09/2018 [facility] Sodium 141 mmol/L N 135- [address] [place] [address] [phone] Potassium 3.6 mmol/L N 3.5-5.0 Chloride 94 mmol/L Low 101-111 Co2 Carbon Dioxide 33 mmol/L High 22-32 Anion Gap 14 mmol/L High 2-11 Glucose 104 mg/dL High 70-100 Blood Urea Nitrogen 37 mg/dL High 6-24 Creatinine 7.57 mg/dL High 0.67-1.17 BUN/Creatinine Ratio 4.9 Low 8-20 Calcium 8.4 mg/dL Low 8.6-10.3 Egfr Non- 7.6 >60 Egfr 9.1 >60 17 Laboratory test 01/09/2018 [facility] Erythrocyte Sed 79 mm/Hr High 0-[address] [place] [address] [phone] Urinalysis 03/31/2017 [facility] Urine Color Yellow Profile [address] [place] [address] [phone] Urine Appearance Clear Urine Specific [place] 1.014 N 1.010-1.030 Urine pH 8.0 N [...] Cell Present Abnormal Absent CBC Auto 03/29/2017 [facility] White Blood 12.6 10^3/uL High 3.5-10.[address] [place] [address] [phone] Red Blood Count 2.22 10^6/uL Low 4.0-5.4 [...] Cells % 0.1 Basic Metabolic Panel 03/29/2017 [facility] Sodium 134 mmol/L N 133-[address] [place] [address] [phone] Potassium 4.8 mmol/L N 3.5-5.0 Chloride 93 mmol/L Low 101-111 Co2 Carbon Dioxide 31 mmol/L N 22-32 Anion Gap 10 mmol/L N 2-11 Glucose 93 mg/dL N 70-100 Blood Urea Nitrogen 24 mg/dL N 6-24 Creatinine 3.98 mg/dL High 0.67-1.17 BUN/Creatinine Ratio 6.0 Low 8-20 Calcium 8.7 mg/dL N 8.6-10.3 Egfr Non- 15.9 >60 Egfr 20.4 >60 18 Inr/Protime 03/29/2017 [facility] Inr 1.21 High 0.77-1.[address] [place] [address] [phone] Laboratory test 03/29/2017 [facility] Partial 35.9 N 26.0- 36.[address] [place] [address] PTT [phone] Laboratory test 08/03/2015 [facility] C Reactive < 1.00 mg/L N < 5.00 [address] [place] [address] [phone] Laboratory test 07/06/2015 [facility] C Reactive < 1.00 mg/L N < 5.00 [address] [place] [address] [phone] CBC Auto Diff 07/06/2015 [facility] White Blood 7.4 10^3/uL N 3.5-10.[address] [place] [address] [phone] Red Blood Count 3.30 10^6/uL Low 4.0-5.4 [...] Cells % 0.1 N Laboratory test 07/06/2015 [facility] Erythrocyte Sed 81 mm/Hr High 0-[address] [place] [address] [phone] Laboratory test 06/08/2015 [facility] Hemoglobin A1c 7.6 % High Less [address] (Glyco HGB) than 6.0 [place] [address] [phone] Laboratory test 12/24/2014 [facility] Uric Acid 5.8 mg/dL N 4.4-7.[address] [place] [address] [phone] Basic Metabolic 12/24/2014 [facility] Sodium 138 N 133-[address] mmol/[place] [address] [phone] Potassium 5.7 mmol/L High 3.5-5.0 Chloride 111 mmol/L N 101-111 Co2 Carbon Dioxide 18 mmol/L Low 22-32 Anion Gap 9 mmol/L N 2-11 Glucose 157 mg/dL High 70-100 Blood Urea Nitrogen 34 mg/dL High 6-24 Creatinine 3.08 mg/dL High 0.67-1.17 BUN/Creatinine Ratio 11.0 N 8-20 Calcium 8.3 mg/dL Low 8.6-10.3 Egfr Non- 21.6 N >60 Egfr 27.8 N >60 22 Comp Metabolic Panel 02/25/2013 [facility] Sodium 132 mmol/L Low 133-[address] [place] [address] [phone] Potassium 4.0 mmol/L 3.5-5.0 Chloride 104 mmol/L [...] Egfr Non- 53.9 >60 Egfr 69.3 >60 23 Laboratory test 02/25/2013 [facility] C Reactive 0.6 mg/dL High Less than finding [address] Protein 0.5 [place] [address] [phone] Wound 02/19/2013 [facility] Wound/Misc (SEE NOTE) 24 Culture/Sensi [address] [place] [address] Stain [phone] Laboratory test 02/11/2013 [facility] C Reactive 0.6 mg/dL High Less than finding [address] Protein 0.5 [place] [address] [phone] Comp Metabolic 02/11/2013 [facility] Sodium 140 mmol/L 133- [address] [place] [address] [phone] Potassium 4.1 mmol/L 3.5-5.0 Chloride 106 mmol/L [...] Egfr Non- 40.3 >60 Egfr 51.8 >60 25 Basic Metabolic Panel 01/30/2013 [facility] Sodium 134 mmol/L 133-[address] [place] [address] [phone] Potassium 4.8 mmol/L 3.5-5.0 Chloride 102 mmol/L 101-111 Co2 Carbon Dioxide 24.0 mmol/L 22-32 Anion Gap 8.0 mmol/L 2-11 Glucose 261 mg/dL High 70-100 Blood Urea Nitrogen 29 mg/dL High 6-24 Creatinine 2.10 mg/dL High 0.50-1.40 BUN/Creatinine Ratio 13.8 8-20 Calcium 9.0 mg/dL 8.1-9.9 Egfr Non- 33.7 >60 Egfr 43.4 >60 26 CBC Auto Diff 01/30/2013 [facility] White Blood 10.3 10^3/uL 4.8-10.[address] [place] [address] [phone] Red Blood Count 3.46 10^6/uL Low 4.0-5.4 [...] Blood Cells % 0.1 Laboratory test 01/13/2013 [facility] Glucose 399 mg/dL High 70-[address] [place] [address] [phone] 1 SEE RESULT BELOW Name: KATY SINGLETARY : [address]: Garry Javed MD Acct: [id number] Unit: [id number] AGE: 53 Location: ENDO Re07/12/18 SEX: M Status: DEP REF SPEC: [id number] ANGELES: 07/12/18- SUBM DR: Garry Javed MD REQ: [id number] RECD: 07/12/18 STATUS: CINTIA OZUNA DR: Lety Santamaria [facility]- _ ORDERED: LEVEL 4 FINAL DIAGNOSIS Colon, sigmoid, biopsy: -- Large intestinal mucosa with architectural disorder compatible with repair and focal hyperplastic change. -- No adenomatous features identified. CLINICAL HISTORY Diarrhea - hungry POST-OPERATIVE DIAGNOSIS Sigmoidoscopy: abdomen obese; to 50 cm; 2 plus sigmoid diverticulosis - no erythema; no colitis; biopsy (2) at 25 cm; no liquid stool; decreased tone; conclusions: diverticulosis; normal mucosa; diarrhea - alter medications GROSS DESCRIPTION The specimen is received in formalin labeled, Sigmoid Biopsy, and consists of two hector-white irregular soft tissue fragments measuring 0.5 by up to 0.2 x 0.2 cm and 0.8 by up to 0.3 x 0.1 cm which are submitted entirely in one cassette. Signed by and Reported on: Juan Deleon MD 09/27 1131 END OF REPORT DEPARTMENT OF PATHOLOGY, [address] [place] [address] Juan Deleon M.D. Director [facility] # [id number] 2 SEE RESULT BELOW Name: YEISONKATY Donnell : [address]: Garry aJved MD Acct: [id number] Unit: [id number] AGE: 53 Location: ENDO Re07/12/18 SEX: M Status: REG REF SPEC: [id number] ANGELES: 07/12/18-[address] [facility] [address]: Garry Javed MD REQ: [id number] RECD: 07/12/18 STATUS: ROM OZUNA DR: Lety JARVIS _ SOURCE: STOOL SPDESC: ORDERED: Occult Bl, Diag Procedure Result Reported Site Stool Occult Blood (1) Final 07/12/18- 1836 ML Stool Occult Blood Negative * ML - Main Lab . END OF REPORT DEPARTMENT OF PATHOLOGY, [address] [place] [address] Juan Deleon M.D. Director [facility] # [id number] 3 Standard intensity warfarin therapeutic range: 2.0-3.0 High intensity warfarin therapeutic range: 2.5-3.5 4 Leukocytosis with absolute neutrophilia suggest an acute inflammatory/reactive process. Moderate macrocytic anemia noted. Additional studies as clinically warranted. Reviewed by Dr. Deleon 5 Standard intensity warfarin therapeutic range: 2.0-3.0 High intensity warfarin therapeutic range: 2.5-3.5 6 Platelets clumped. Unable to perform accurate count. 7 Consistent with Previous Results Reported on 07/05/18 8 Consistent with Previous Results Reported on 07/05/18 9 White count confirmed by estimate 10 Because ethnic data is not always [...] 5 Kidney failure <15 (or dialysis) 11 Normal Range 180 to 914 Indeterminate Range 145 to 180 Deficient Range <145 12 Therapeutic target for the treatment of diabetes mellitus patients is <7% HBA1C, and in selective patients <6.0%. Please refer to [employer] diabetic care guidelines for further information. 13 SEE RESULT BELOW Name: YEISONKATY : [address]: Ector Mcwilliams MD Acct: [id number] Unit: [id number] AGE: 53 Location: [facility] Re06/03/18 SEX: M Status: REG REF SPEC: [id number] ANGELES: 06/04/18-[address] [facility] [address]: Ector Mcwilliams MD REQ: [id number] RECD: 06/04/18 STATUS: COMP _ SOURCE: STOOL SPDESC: ORDERED: C. diff PCR, Stool Culture COMMENTS: [id number] ADDED 06/05/18 TO [id number] SPECIMEN IN CUP YELLOW TOP C S [...] CONTINUED ON NEXT PAGE DEPARTMENT OF PATHOLOGY, [address] [place] [address] Juan Deleon M.D. Director [facility] # [id number] Patient: KATY SINGLETARY [id number] (Continued) Specimen: [id number] Collected: 06/04/18 Received: 06/04/18 (Continued) Procedure Result Reported Site C. difficile PCR Final (continued) 06/04/18- 9646 * - Main Lab . END OF REPORT DEPARTMENT OF PATHOLOGY, [address] [place] [address] Juan Deleon M.D. Director [facility] # [id number] 14 Because ethnic data is not always [...] 15-29 5 Kidney failure <15 (or dialysis) 15 RIGHT FOOT 16 SEE RESULT BELOW Name: KATY SINGLETARY : [address]: Amparo Landis NP Acct: [id number] Unit: [id number] AGE: 53 Location: WOUND Re03/29/18 SEX: M Status: REG REF SPEC: [id number] ANGELES: 03/29/18-[address] [facility] [address]: Amparo Landis NP REQ: [id number] RECD: 03/29/183829 STATUS: COMP [facility] DR: Lety Santamaria RPA-C _ SOURCE: TISSUE SPDESC:RIGHT ORDERED: Tissue Cult/GS [...] CONTINUED ON NEXT PAGE DEPARTMENT OF PATHOLOGY, [address] [place] [address] Juan Deleon M.D. Director [facility] # [id number] Patient: KATY SINGLETARY [id number] (Continued) Specimen: [id number] Collected: 03/29/18 Received: 03/29/18 (Continued) Procedure Result Reported Site Tissue Culture Final (continued) 04/02/18- 941 1. ENTEROBACTER CLOACAE (continued) M.I.C. RX --------- [...] . END OF REPORT DEPARTMENT OF PATHOLOGY, [address] [place] [address] Juan Deleon M.D. Director [facility] # [id number] 17 Because ethnic data is not always readily [...] 15-29 5 Kidney failure <15 (or dialysis) 18 Because ethnic data is not always [...] 5 Kidney failure <15 (or dialysis) 19 Acute inflammation: >10.00 20 Acute inflammation: >10.00 21 Therapeutic target for the treatment of diabetes Mellitus patients is <7% HBA1C, and in selective patients <6.0%.Please refer to [employer] Diabetic care guidelines for further information. 22 Because ethnic data is not always readily [...] 15-29 5 Kidney failure <15 (or dialysis) 23 Because ethnic data is not always readily [...] 15-29 5 Kidney failure <15 (or dialysis) 24 RUN DATE: 02/21/13 [facility] LAB LIVE PAGE 1 RUN TIME: [address] [place], [place] [address] Specimen Inquiry Name: YEISONKATY Donnell : [address]: Mono Marcelino Acct: [id number] Unit: [id number] AGE: 48 Location: WOUND Re02/21/13 SEX: M Status: REG RCR SPEC: [id number] ANGELES: 02/19/[address] [facility] [address]: Mono Marcelino DP REQ: [id number] RECD: 02/19/13 STATUS: ROM OZUNA DR: Ector Glasgow MD _ SOURCE: TOE SPDESC:RIGHT ORDERED: Culture Stain Procedure Result Verified Site Wound/Misc Gram Stain Final 02/19/13- 1422 ML No Polys Observed No Organisms Seen Wound/Misc Culture Final 02/21/13- 1112 ML Organism 1 NORMAL KEVIN Quantity 1+ END OF REPORT * ML=Testing performed at Main Lab DEPARTMENT OF PATHOLOGY, [address] [place] [address] Juan Deleon M.D. Director [facility] Permit #[id number] 25 Because ethnic data is not always readily [...] 15-29 5 Kidney failure <15 (or dialysis) 26 Because ethnic data is not always readily [...] (or dialysis) Procedures Date Code Description Status 07/17/2018 95120 EKG Tracing & Interpretation Completed 07/11/2018 17412 Removal Devitalization Tissue Wound Less Than Equal 20 Completed Square CM 07/01/2018 06962 ECHO Transthorasic Realtime 2D W Doppler & Color Flow Hosp Completed 05/31/2018 08359 Removal Devitalization Tissue Wound Less Than Equal 20 Completed Square CM 05/17/2018 97851 I&D Of Abscess Complicated Completed 05/10/2018 83815 Moderate Sedation Services; Same Phys Each Additional 15 Completed Mins 05/10/2018 93197 Moderate Sedation Services; Same Phys Intl 15 Mins; PT >=5 Completed Years 05/10/2018 65840 Ultrasound Guidance For Vascular Access Completed 05/10/2018 39747 Dialysis Circuit W/ Transluminal Balloon Angioplasty, Completed Peripheral 04/12/2018 02359 Chemical Cautery Granulation Tissue Completed 04/05/2018 48480 Apply Total Contact Leg Cast Completed 03/29/2018 06831 Debridement Skin,& sq Tissue Completed 03/22/2018 01618 Apply Total Contact Leg Cast Completed 03/15/2018 67123 Removal Devitalization Tissue Wound Less Than Equal 20 Completed Square CM 03/01/2018 97256 Apply Total Contact Leg Cast Completed 02/21/2018 31127 Removal Devitalization Tissue Wound Less Than Equal 20 Completed Square CM 02/15/2018 59449 Apply Total Contact Leg Cast Completed 02/08/2018 93643 Apply Total Contact Leg Cast Completed 01/18/2018 46947 Apply Total Contact Leg Cast Completed 01/11/2018 48586 Apply Total Contact Leg Cast Completed 01/04/2018 55801 Debridement Skin,& sq Tissue Completed 12/03/2017 80276 Removal Of Tunneled Central Venous Cath W/O Subcutaneous Completed Port/BARYTES GRINDER 05/10/2017 58698 Amputation Foot Midtarsal Completed 05/10/2017 69996 Amputation Foot Midtarsal Completed 05/10/2017 31017 Transfer Tendon Leg Or Ankle Superficial Completed 05/10/2017 19896 Transfer Tendon Leg Or Ankle Superficial Completed 05/10/2017 91292 Tenotomy Achilles Tendon General Anesthesia Completed 04/23/2017 24311 EKG, Interpretation Only Completed 03/30/2017 09361 EKG Tracing & Interpretation Completed 03/28/2017 11905 Rad Exam; Foot Comp Completed 03/02/2017 73013 Short Leg Cast Completed 02/19/2017 57475 Amputation Foot Transmetatarsal Completed 02/19/2017 36216 Amputation Foot Transmetatarsal Completed 01/31/2017 06335 Treadmill Interp/Report Only Completed 01/31/2017 73635 Stress Test Supervsn W/Out I/R Completed 01/30/2017 01637 ECHO Transthorasic Realtime 2D W Doppler & Color Flow Hosp Completed 01/23/2017 96567 Fluoroscopic Guidance For Cent Completed 01/23/2017 44449 Insertion Tunneled Cent Venous Cathr W/O Subcut Port/Pump Completed 5Yrs> 01/21/2017 80899 EKG, Interpretation Only Completed 01/19/2017 68870 EKG, Interpretation Only Completed 01/19/2017 34780 Insert Non-Tunneled Venous Catether Completed 08/19/2015 09996 Apply Total Contact Leg Cast Completed 08/10/2015 00644 Removal Devitalization Tissue Wound Less Than Equal 20 Completed Square CM 08/03/2015 84785 Removal Devitalization Tissue Wound Less Than Equal 20 Completed Square CM 07/27/2015 96146 Removal Devitalization Tissue Wound Less Than Equal 20 Completed Square CM 07/20/2015 82766 Removal Devitalization Tissue Wound Less Than Equal 20 Completed Square CM 07/13/2015 82625 Removal Devitalization Tissue Wound Less Than Equal 20 Completed Square CM 07/06/2015 29904 Removal Devitalization Tissue Wound Less Than Equal 20 Completed Square CM 06/29/2015 57811 Removal Devitalization Tissue Wound Less Than Equal 20 Com[address] Square CM 06/22/2015 58728 Removal Devitalization Tissue Wound Less Than Equal [address] Square CM 06/15/2015 81305 Removal Devitalization Tissue Wound Less Than Equal [address] Square CM 06/08/2015 13502 Removal Devitalization Tissue Wound Less Than Equal 20 Completed Square CM 06/01/2015 67946 Removal Devitalization Tissue Wound Less Than Equal 20 Com[address] Square CM 05/25/2015 02101 Removal Devitalization Tissue Wound Less Than Equal [address] Square CM 05/18/2015 24820 Removal Devitalization Tissue Wound Less Than Equal 20 Completed Square CM 05/11/2015 32455 Removal Devitalization Tissue Wound Less Than Equal 20 Completed Square CM 05/04/2015 51760 Removal Devitalization Tissue Wound Less Than Equal 20 Completed Square CM 12/29/2014 08242 Short Leg Cast Completed 12/17/2014 73606 Amputation Foot Transmetatarsal Completed 12/17/2014 11203 Amputation Foot Transmetatarsal Completed 01/14/2013 99947 EKG, Interpretation Only Completed Encounters Type Date Location Provider Dx Diagnosis Office Visit 07/17/2018 [facility] William Hidalgo I35.0 Nonrheumatic 11:30a Real Chavez M.D., aortic (valve) FACC, FASNC stenosis Office Visit 07/08/2018 [facility] Garry Abraham E11.52 Type 2 diabetes w 2:15p MD Tello diabetic peripheral angiopathy w gangrene N18.6 End stage renal disease I10 Essential (primary) hypertension K72.90 Hepatic failure, unspecified without coma M86.271 Subacute osteomyelitis, right ankle and foot Office Visit 07/03/2018 2:08p [facility] Beth Clemons, R55 Syncope and Of Real Chavez collapse R41.82 Altered mental status, unspecified I35.0 Nonrheumatic aortic (valve) stenosis I25.10 Athscl heart disease of [place] coronary artery w/o ang pctrs N18.6 End stage renal disease Z99.2 Dependence on renal dialysis E87.6 Hypokalemia I42.9 Cardiomyopathy, unspecified I10 Essential (primary) hypertension Office Visit 06/28/2018 [facility] Josynicole Mosquera M86.9 Osteomyelitis , 11:00a For Infectious [place], [employer] unspecified Diseases R94.5 Abnormal results of liver function studies E11.621 Type 2 diabetes mellitus with foot ulcer L97.519 Non-prs chronic ulcer oth prt right foot w unsp severity E11.69 Type 2 diabetes mellitus with other specified complication Office Visit 06/17/2018 [facility] Shima M86.271 Subacute 2:11p Services Of VANDANA Doss osteomyelitis, right C.M.A. ankle and foot Office Visit 06/17/2018 [facility] Ector GouldJoey B17.9 Acute viral 10:41a For Infectious [place], hepatitis, Diseases M.D. unspecified E11.69 Type 2 diabetes mellitus with other specified complication M86.9 Osteomyelitis, unspecified E11.22 Type 2 diabetes mellitus w diabetic chronic kidney disease N18.6 End stage renal disease [facility] R94[facility]5 Abnormal Assoc,manuel Paul MD results of Hospitalists liver function studies G93.40 Encephalopathy, unspecified M86.679 Other chronic osteomyelitis, unspecified ankle and foot N18.6 End stage renal disease Z99.2 Dependence on renal dialysis Office Visit [facility]/16[facility]2018 [facility] K72.00 Acute and Assoc,manuel Paul MD subacute Hospitalists hepatic failure without coma G93.41 Metabolic encephalopathy R94.5 Abnormal results of liver function studies M86.671 Other chronic osteomyelitis, right ankle and foot D69.6 Thrombocytopenia, unspecified N18.6 End stage renal disease R19.7 Diarrhea, unspecified Z99.2 Dependence on renal dialysis Office Visit 06/15/2018 8[facility] K72.00 Acute and Assoc,manuel Paul MD subacute Hospitalists hepatic failure without coma G93.41 Metabolic encephalopathy E87.8 Oth disorders of electrolyte and fluid balance, NEC M86.671 Other chronic osteomyelitis, right ankle and foot D69.6 Thrombocytopenia, unspecified N18.6 End stage renal disease R19.7 Diarrhea, unspecified R94.5 Abnormal results of liver function studies Office Visit 06/14/2018 [facility] Philly M86.671 Other chronic 8:44a Assoc,manuel Miller M.D. osteomyelitis, Hospitalists right ankle and foot D69.6 Thrombocytopenia, unspecified K72.00 Acute and subacute hepatic failure without coma G93.41 Metabolic encephalopathy R19.7 Diarrhea, unspecified N18.6 End stage renal disease Z99.2 Dependence on renal dialysis Office Visit 06/14/2018 9:48a [facility] El Spencer B17.9 Acute viral Infectious Kathy Mcwilliams hepatitis, Diseases unspecified E11.22 Type 2 diabetes mellitus w diabetic chronic kidney disease N18.6 End stage renal disease E11.69 Type 2 diabetes mellitus with other specified complication M86.9 Osteomyelitis, unspecified Office Visit 06/13/2018 9:47a [facility] El Spencer B17.9 Acute viral Infectious Kathy Mcwilliams hepatitis, Diseases unspecified E11.22 Type 2 diabetes mellitus w diabetic chronic kidney disease N18.6 End stage renal disease Office Visit 06/13/2018 [facility] M86.271 Subacute 8:43a manuel Sosa M.D. osteomyelitis, Hospitalists right ankle and foot E11.621 Type 2 diabetes mellitus with foot ulcer L97.519 Non-prs chronic ulcer oth prt right foot w unsp severity K72.00 Acute and subacute hepatic failure without coma G93.41 Metabolic encephalopathy N18.6 End stage renal disease Z99.2 Dependence on renal dialysis R19.7 Diarrhea, unspecified Office Visit 06/12/2018 [facility] M86.271 Subacute 8:43a manuel Sosa M.D. osteomyelitis, Hospitalists right ankle and foot G93.41 Metabolic encephalopathy R19.7 Diarrhea, unspecified N18.6 End stage renal disease Z99.2 Dependence on renal dialysis Office Visit 06/11/2018 8:42a [facility] Angela, K72.00 Acute and manuel Sosa M.D. subacute Hospitalists hepatic failure without coma G93.41 Metabolic encephalopathy R19.7 Diarrhea, unspecified R79.89 Other specified abnormal findings of blood chemistry N18.6 End stage renal disease Office Visit 06/10/2018 9:42a [facility] El Spencer B17.9 Acute viral Infectious Kathy Mcwilliams hepatitis, Diseases unspecified R19.7 Diarrhea, unspecified E11.40 Type 2 diabetes mellitus with diabetic neuropathy, unsp E11.22 Type 2 diabetes mellitus w diabetic chronic kidney disease N18.6 End stage renal disease R79.1 Abnormal coagulation profile Office Visit 06/10/2018 8:42a [facility] [place] Angela, I12.0 Hyp chr kidney Assocmanuel M.D. disease w Hospitalists stage 5 chr kidney disease or Esrd N18.6 End stage renal disease Z99.2 Dependence on renal dialysis R74.8 Abnormal levels of other serum enzymes R11.10 Vomiting, unspecified R19.7 Diarrhea, unspecified R79.89 Other specified abnormal findings of blood chemistry R41.82 Altered mental status, unspecified Office Visit 06/09/2018 8:41a [facility] K72.00 Acute and Assoc,manuel Mcghee M.D. subacute Hospitalists hepatic failure without coma I12.0 Hyp chr kidney disease w stage 5 chr kidney disease or Esrd Z99.2 Dependence on renal dialysis R50.9 Fever, unspecified R79.89 Other specified abnormal findings of blood chemistry R41.82 Altered mental status, unspecified R19.7 Diarrhea, unspecified Office Visit 06/08/2018 8:41a [facility] K72.00 Acute and Assoc,manuel Mcghee M.D. subacute Hospitalists hepatic failure without coma R50.9 Fever, unspecified I12.0 Hyp chr kidney disease w stage 5 chr kidney disease or Esrd N18.6 End stage renal disease Z99.2 Dependence on renal dialysis R79.89 Other specified abnormal findings of blood chemistry R41.82 Altered mental status, unspecified R19.7 Diarrhea, unspecified Office Visit 06/07/2018 8:40a [facility] K72.00 Acute and Assoc,manuel Mcghee M.D. subacute Hospitalists hepatic failure without coma R50.9 Fever, unspecified I12.0 Hyp chr kidney disease w stage 5 chr kidney disease or Esrd Z99.2 Dependence on renal dialysis N18.6 End stage renal disease R41.82 Altered mental status, unspecified Office Visit 06/07/2018 10:45a Wound Care Fitz Leon, L89.893 Pressure ulcer Center AT [facility] , ASHLI of other site, stage 3 E11.621 Type 2 diabetes mellitus with foot ulcer M86.271 Subacute osteomyelitis, right ankle and foot I73.9 Peripheral vascular disease, unspecified N18.6 End stage renal disease R09.89 Oth symptoms and signs involving the circ and resp systems M21.6x1 Other acquired deformities of right foot Office Visit 05/31/2018 [facility] Ector Spencer M86.271 Subacute 10:50a For Infectious Kathy Mcwilliams osteomyelitis, Diseases right ankle and foot E11.40 Type 2 diabetes mellitus with diabetic neuropathy, unsp R19.7 Diarrhea, unspecified T36.0x5A Adverse effect of penicillins, initial encounter Office Visit 05/24/2018 10:45a Wound Care Cordell Casas Pressure ulcer Center AT [facility] , FACS of other site, stage 3 E11.621 Type 2 diabetes mellitus with foot ulcer M86.271 Subacute osteomyelitis, right ankle and foot I73.9 Peripheral vascular disease, unspecified N18.6 End stage renal disease R09.89 Oth symptoms and signs involving the circ and resp systems M21.6x1 Other acquired deformities of right foot Office Visit 05/17/2018 [facility] Ector Spencer M86.271 Subacute 10:50a For Infectious Kathy Mcwilliams osteomyelitis, Diseases right ankle and foot E11.621 Type 2 diabetes mellitus with foot ulcer N18.6 End stage renal disease I73.9 Peripheral vascular disease, unspecified E11.69 Type 2 diabetes mellitus with other specified complication L97.519 Non-prs chronic ulcer oth prt right foot w unsp severity Office Visit 05/03/2018 11:30a Wound Care Cordell Casas Pressure ulcer Center AT [facility] MD FACS of other site, stage 3 E11.621 Type 2 diabetes mellitus with foot ulcer M86.271 Subacute osteomyelitis, right ankle and foot I73.9 Peripheral vascular disease, unspecified N18.6 End stage renal disease R09.89 Oth symptoms and signs involving the circ and resp systems M21.6x1 Other acquired deformities of right foot Office Visit 04/26/2018 11:00a Wound Care Cordell Casas Pressure ulcer Center AT [facility] MD FACS of other site, stage 3 E11.621 Type 2 diabetes mellitus with foot ulcer I73.9 Peripheral vascular disease, unspecified N18.6 End stage renal disease R09.89 Oth symptoms and signs involving the circ and resp systems M21.6x1 Other acquired deformities of right foot Office Visit 01/04/2018 [facility] Fitz Bermudez E11.621 Type 2 diabetes 8:00a AT [facility] MD Carolyn, mellitus with FACS foot ulcer Office Visit 05/18/2017 [facility] Adrián J96.01 Acute respiratory 8:39a Assmanuel alvarez M.D. failure with Hospitalists hypoxia S91.302A Unspecified open wound, left foot, initial encounter E11.8 Type 2 diabetes mellitus with unspecified complications I10 Essential (primary) hypertension Office Visit 05/17/2017 8:37a [facility] Adrián J96.01 Acute respiratory Assocmanuel M.D. failure with Hospitalists hypoxia S91.302A Unspecified open wound, left foot, initial encounter E11.8 Type 2 diabetes mellitus with unspecified complications I10 Essential (primary) hypertension Office Visit 05/16/2017 8:34a [facility] Adrián J96.01 Acute respiratory Assocmanuel M.D. failure with Hospitalists hypoxia S91.302A Unspecified open wound, left foot, initial encounter E11.8 Type 2 diabetes mellitus with unspecified complications I10 Essential (primary) hypertension Office Visit 05/15/2017 8:33a [facility] Adrián J96.01 Acute respiratory Assocmanuel M.D. failure with Hospitalists hypoxia S91.302A Unspecified open wound, left foot, initial encounter E11.8 Type 2 diabetes mellitus with unspecified complications I10 Essential (primary) hypertension Office Visit 05/14/2017 [facility] Philly Miller, J96.01 Acute respiratory 8:32a manuel Sosa M.D. failure with Hospitalists hypoxia S91.302A Unspecified open wound, left foot, initial encounter E11.8 Type 2 diabetes mellitus with unspecified complications I10 Essential (primary) hypertension Office Visit 05/13/2017 [facility] Philly Miller, J96.01 Acute respiratory 8:24a manuel Sosa M.D. failure with Hospitalists hypoxia S91.302A Unspecified open wound, left foot, initial encounter E11.8 Type 2 diabetes mellitus with unspecified complications I10 Essential (primary) hypertension Office Visit 05/12/2017 [facility] Philly Miller J96.01 Acute respiratory 8:21a manuel Sosa M.D. failure with Hospitalists hypoxia S91.302A Unspecified open wound, left foot, initial encounter E11.8 Type 2 diabetes mellitus with unspecified complications I10 Essential (primary) hypertension Office Visit 05/11/2017 [facility] Philly Miller, J96.01 Acute respiratory 8:20a manuel Sosa M.D. failure with Hospitalists hypoxia S91.302A Unspecified open wound, left foot, initial encounter E11.8 Type 2 diabetes mellitus with unspecified complications I10 Essential (primary) hypertension Office Visit 05/10/2017 [facility] Philly Miller J96.01 Acute respiratory 8:19a manuel Sosa M.D. failure with Hospitalists hypoxia S91.302A Unspecified open wound, left foot, initial encounter E11.8 Type 2 diabetes mellitus with unspecified complications I10 Essential (primary) hypertension Office Visit 05/10/2017 10:03a Colin Torres I73.9 Peripheral Medicine Of Real Coelho M.D. vascular disease, unspecified E11.8 Type 2 diabetes mellitus with unspecified complications Office Visit 05/09/2017 [facility] Shima M86.672 Other chronic 11:40a Services Of VANDANA Harris osteomyelitis, left ankle and foot Office Visit 05/09/2017 [facility] Chema Dukes, J96.01 Acute respiratory 8:18a manuel Sosa MD failure with Hospitalists hypoxia S91.302A Unspecified open wound, left foot, initial encounter E11.8 Type 2 diabetes mellitus with unspecified complications I10 Essential (primary) hypertension Office Visit 05/08/2017 8:08a [facility] Chema Dukes J96.01 Acute respiratory manuel Sosa MD failure with Hospitalists hypoxia S91.302A Unspecified open wound, left foot, initial encounter E11.8 Type 2 diabetes mellitus with unspecified complications I10 Essential (primary) hypertension Office Visit 05/07/2017 7:56a [facility] Chema Dukes J96.01 Acute respiratory manuel Sosa MD failure with Hospitalists hypoxia S91.302A Unspecified open wound, left foot, initial encounter E11.8 Type 2 diabetes mellitus with unspecified complications I10 Essential (primary) hypertension Office Visit 04/25/2017 [facility] Philly Miller J96.01 Acute respiratory 10:09a manuel Sosa M.D. failure with Hospitalists hypoxia S91.302A Unspecified open wound, left foot, initial encounter E11.8 Type 2 diabetes mellitus with unspecified complications I10 Essential (primary) hypertension Office Visit 04/24/2017 [facility] Philly Miller, J96.01 Acute respiratory 10:08a manuel Sosa M.D. failure with Hospitalists hypoxia S91.302A Unspecified open wound, left foot, initial encounter E11.8 Type 2 diabetes mellitus with unspecified complications I10 Essential (primary) hypertension Office Visit 04/23/2017 [facility] Josy Vasquezluzmaria J96.01 Acute 10:06a manuel Sosa, [employer] respiratory Hospitalists failure with hypoxia S91.302A Unspecified open wound, left foot, initial encounter E11.8 Type 2 diabetes mellitus with unspecified complications I10 Essential (primary) hypertension Office Visit 03/30/2017 2:30p Cardiology William Hidalgo I34.0 Nonrheumatic mitral Services Of Real Chavez M.D., (valve) AT [facility] insufficiency I10 Essential (primary) hypertension Z01.810 Encounter for preprocedural cardiovascular examination M86.672 Other chronic osteomyelitis, left ankle and foot Office Visit 02/21/2017 7:22a [facility] [place] S. E11.621 Type 2 Assmanuel alvarez, N.P. diabetes Hospitalists mellitus with foot ulcer N18.6 End stage renal disease E11.8 Type 2 diabetes mellitus with unspecified complications I10 Essential (primary) hypertension Office Visit 02/21/2017 [facility] Ector Spencer E10.69 Type 1 diabetes 2:05p For Infectious Kathy Mcwilliams mellitus with Diseases other specified complication E10.52 Type 1 diabetes w diabetic peripheral angiopathy w gangrene M86.672 Other chronic osteomyelitis, left ankle and foot Z89.422 Acquired absence of other left toe(s) Office Visit 02/20/2017 7:21a [facility] [place] S. E11.621 Type 2 Assantonio,manuel Pierre, N.P. diabetes Hospitalists mellitus with foot ulcer E11.8 Type 2 diabetes mellitus with unspecified complications N18.6 End stage renal disease I10 Essential (primary) hypertension Office Visit 02/19/2017 7:21a [facility] [place] S. N18.6 End stage Assoc,manuel Pierre N.P. renal disease Hospitalists E11.621 Type 2 diabetes mellitus with foot ulcer E11.8 Type 2 diabetes mellitus with unspecified complications I10 Essential (primary) hypertension Office Visit 02/18/2017 9:37a Orthopedic Adrián Louis, I96 Gangrene, not Services Of Isabel Chavez elsewhere classified Office Visit 02/18/2017 7:20a [facility] Phil[place] Miller, N18.6 End stage renal Assoc,manuel Chavez disease Hospitalists E11.621 Type 2 diabetes mellitus with foot ulcer E11.8 Type 2 diabetes mellitus with unspecified complications I10 Essential (primary) hypertension Office Visit 02/17/2017 7:19a [facility] Julius Avila, N18.6 End stage Assoc,manuel Bone.Aidan renal disease Hospitalists E11.621 Type 2 diabetes mellitus with foot ulcer E11.8 Type 2 diabetes mellitus with unspecified complications I10 Essential (primary) hypertension Office Visit 01/30/2017 7:34a [facility] Taryn R07.9 Chest pain, Assoc,manuel Monaco M.D. unspecified Hospitalists I50.9 Heart failure, unspecified N18.6 End stage renal disease Z99.2 Dependence on renal dialysis Office Visit 2017 8:03a [facility] Adrián N17.9 Acute kidney Assoc,manuel Rawls M.D. failure, Hospitalists unspecified E87.5 Hyperkalemia N18.5 Chronic kidney disease, stage 5 E83.39 Other disorders of phosphorus metabolism Office Visit 01/23/2017 8:02a [facility] Adrián N17.9 Acute kidney Assocmanuel M.D. failure, Hospitalists unspecified E87.5 Hyperkalemia E83.39 Other disorders of phosphorus metabolism N18.5 Chronic kidney disease, stage 5 Office Visit 01/22/2017 8:00a [facility] Adrián N17.9 Acute kidney Assoc,manuel Rawls M.D. failure, Hospitalists unspecified E87.5 Hyperkalemia E83.39 Other disorders of phosphorus metabolism N18.5 Chronic kidney disease, stage 5 Office Visit 01/21/2017 7:51a [facility] Adrián N17.9 Acute kidney Assoc,manuel Rawls M.D. failure, Hospitalists unspecified E87.5 Hyperkalemia E83.39 Other disorders of phosphorus metabolism N18.5 Chronic kidney disease, stage 5 Office Visit 01/20/2017 7:50a [facility] Adrián N17.9 Acute kidney Assmanuel alvarez M.D. failure, Hospitalists unspecified N18.5 Chronic kidney disease, stage 5 E87.5 Hyperkalemia E83.39 Other disorders of phosphorus metabolism Office Visit 01/19/2017 [facility] Nitin Anuja N17.9 Acute kidney 7:47a Assmanuel alvarez II, M.D. failure, Hospitalists unspecified E87.5 Hyperkalemia N18.5 Chronic kidney disease, stage 5 E83.39 Other disorders of phosphorus metabolism Office Visit 08/26/2015 11:34a Wound Care Simba Chapa M10.079 Idiopathic gout , Center AT [facility] Kathy Phillip unspecified ankle and foot E11.621 Type 2 diabetes mellitus with foot ulcer M86.671 Other chronic osteomyelitis, right ankle and foot L97.411 Non-prs chr ulcer of right heel and midft lmt to [facility] skin Office Visit 08/17/2015 2:24p Wound Care Simba Chapa M10.079 Idiopathic gout , Center AT [facility] Kathy Phillip unspecified ankle and foot E11.621 Type 2 diabetes mellitus with foot ulcer M86.671 Other chronic osteomyelitis, right ankle and foot Office Visit 08/10/2015 10:50a [facility] El Spencer Z89.421 Acquired Infectious Kathy Mcwilliams absence of Diseases other right toe(s) L97.519 Non-prs chronic ulcer oth prt right foot w unsp severity Office Visit 07/27/2015 9:30a [facility] El Spencer Z89.421 Acquired Infectious Kathy Mcwilliams absence of Diseases other right toe(s) E11.621 Type 2 diabetes mellitus with foot ulcer L97.519 Non-prs chronic ulcer oth prt right foot w unsp severity Office Visit 06/10/2015 10:29a Wound Care Simba Chapa E11.321 Type 2 diab w Center AT [facility] Kathy 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 ankle and foot Office Visit 04/28/2015 Orthopedic Adrián [id number] Other chronic 2:50p Services Of Kathy Louis osteomyelitis, right C.M.A. ankle and foot Office Visit 04/15/2015 Orthopedic Adrián Quevedo86.671 Other chronic 11:15a Services Of Kathy Louis osteomyelitis, right C.M.A. ankle and foot Office Visit 01/11/2015 [facility] Ector Spencer M86.671 Other chronic 3:00p For Infectious [place], osteomyelitis, right Diseases M.D. 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 Philly Miller, N17.9 Acute kidney 12:13p Assocmanuel M.D. failure, Hospitalists unspecified M86.9 Osteomyelitis, unspecified A41.9 Sepsis, unspecified organism E13.9 Other specified diabetes mellitus without complications Office Visit 12/20/2014 [facility] Philly M86.9 Osteomyelitis, 12:12p Assocmanuel M.D. unspecified Hospitalists A41.9 Sepsis, unspecified organism N17.9 Acute kidney failure, unspecified E13.9 Other specified diabetes mellitus without complications Office Visit 12/19/2014 [facility] Philly M86.9 Osteomyelitis, 12:12p Assocmanuel M.D. unspecified Hospitalists A41.9 Sepsis, unspecified organism N17.9 Acute kidney failure, unspecified E13.9 Other specified diabetes mellitus without complications Office Visit 12/18/2014 [facility] Philly Miller, N17.9 Acute kidney 12:11p Assocmanuel M.D. failure, Hospitalists unspecified M76.9 Unspecified enthesopathy, lower limb, excluding foot A41.9 Sepsis, unspecified organism E13.9 Other specified diabetes mellitus without complications Office Visit 12/17/2014 7:52a [facility] Ector Spencer E11.52 Type 2 diabetes Infectious [place], M.D. w diabetic Diseases peripheral angiopathy w [...] disease, stage 3 (moderate) Office Visit 12/17/2014 [facility] Philly M86.9 Osteomyelitis, 12:10p Assocmanuel M.D. unspecified Hospitalists A41.9 Sepsis, unspecified organism N17.9 Acute kidney failure, unspecified E13.9 Other specified diabetes mellitus without complications Office Visit 12/16/2014 [facility] [place] Tsang M86.9 Osteomyelitis, 12:08p Assmanuel alvarez, N.P. unspecified Hospitalists A41.9 Sepsis, unspecified organism N17.9 Acute kidney failure, unspecified E13.9 Other specified diabetes mellitus without complications Office Visit 12/16/2014 [facility]opedic Dara Vergara, M86.9 Osteomyelitis, 7:00a Services Of Kathy unspecified C.M.A. Office Visit 03/18/2013 [facility] Ector Spencer 681.10 Cellulitis & Abscess 9:30a For Infectious [place], Toe Unspec Diseases MEleanor Office Visit 02/25/2013 [facility] Ector Spencer 730.00 Osteomyelitis Acute 9:30a For Infectious [place], Site Unspec Diseases Kathy 681.10 Cellulitis & Abscess Toe Unspec Office Visit 02/04/2013 [facility] Ector Spencer 730.00 Osteomyelitis Acute 9:30a For Infectious Rachel MJoeyDJoey Site Unspec Diseases 588.9 Renal Function Impairment Disorders Unspec Office Visit 2013 11:06a [facility] Taryn 681.10 Cellulitis & Assoc,manuel Monaco M.D. Abscess Toe Hospitalists Unspec 730.00 Osteomyelitis Acute Site Unspec 250.02 Diabetes Mellitus W/O Compl Type II Or Unspec Type Uncontrol 584.5 Acute Kidney Failure With Lesion Of Tubular Necrosis Office Visit 01/23/2013 11:06a [facility] 681.10 Cellulitis & Assoc,manuel Monaco M.D. Abscess Toe Hospitalists Unspec 250.02 Diabetes Mellitus W/O Compl Type II Or Unspec Type Uncontrol 584.5 Acute Kidney Failure With Lesion Of Tubular Necrosis Office Visit 01/22/2013 11:06a [facility] 681.10 Cellulitis & Assoc,manuel Monaco M.D. Abscess Toe Hospitalists Unspec 250.02 Diabetes Mellitus W/O Compl Type II Or Unspec Type Uncontrol 584.5 Acute Kidney Failure With Lesion Of Tubular Necrosis Office Visit 01/21/2013 11:05a [facility] 681.10 Cellulitis & Assoc,manuel Monaco M.D. Abscess Toe Hospitalists Unspec 250.02 Diabetes Mellitus W/O Compl Type II Or Unspec Type Uncontrol Office Visit 01/21/2013 [facility] El Spencer 730.27 Osteomyelitis 9:16a Gregorio Mcwilliams M.D. Unspec Ankle & Diseases Foot Office Visit [facility]/[address] [facility] 681.10 Cellulitis & 11:05a Assmanuel alvarez M.D. Abscess Toe Unspec Hospitalists 250.02 Diabetes Mellitus W/O Compl Type II Or Unspec Type Uncontrol 584.5 Acute Kidney Failure With Lesion Of Tubular Necrosis Office Visit 01/19/2013 [facility] Philly Miller, 681.10 Cellulitis & 11:05a manuel Sosa M.D. Abscess Toe Hospitalists Unspec 250.02 Diabetes Mellitus W/O Compl Type II Or Unspec Type Uncontrol 584.5 Acute Kidney Failure With Lesion Of Tubular Necrosis Office Visit 01/18/2013 [facility] Philly Miller 681.10 Cellulitis & 11:04a manuel Sosa M.D. Abscess Toe Hospitalists Unspec 250.02 Diabetes Mellitus W/O Compl Type II Or Unspec Type Uncontrol 584.5 Acute Kidney Failure With Lesion Of Tubular Necrosis Office Visit 01/17/2013 11:04a [facility] [place] Tsang 681.10 Cellulitis & Assoc,manuel Pierre, N.PJoey Abscess Toe Hospitalists Unspec 250.02 Diabetes Mellitus W/O Compl Type II Or Unspec Type Uncontrol 584.5 Acute Kidney Failure With Lesion Of Tubular Necrosis Office Visit 01/16/2013 [facility] El Spencer 730.27 Osteomyelitis 2:16p Infectious [place], M.D. Unspec Ankle & Diseases Foot Office Visit 01/16/2013 [facility] 584.5 Acute Kidney 11:04a manuel Sosa M.D. Failure With Hospitalists Lesion Of Tubular Necrosis 681.10 Cellulitis & Abscess Toe Unspec 250.02 Diabetes Mellitus W/O Compl Type II Or Unspec Type Uncontrol Office Visit 01/15/[facility] Acute Kidney Assmanuel alvarez M.D. Failure With Hospitalists Lesion Of Tubular Necrosis 681.10 Cellulitis & Abscess Toe Unspec 250.02 Diabetes Mellitus W/O Compl Type II Or Unspec Type Uncontrol 995.92 Severe Sepsis [facility]30.27 Osteomyelitis 12:10p Gregorio Mcwilliams M.D. Unspec Ankle & Diseases Foot Office Visit 01/14/2013 [facility] 995.92 Severe Sepsis 11:03a manuel Sosa M.D. Hospitalists 681.10 Cellulitis & Abscess Toe Unspec 250.02 Diabetes Mellitus W/O Compl Type II Or Unspec Type Uncontrol 584.5 Acute Kidney Failure With Lesion Of Tubular Necrosis Office Visit 01/13/2013 11:02a [facility] Angela, 995.92 Severe Sepsis Assmanuel alvarez M.D. Hospitalists 681.10 Cellulitis & Abscess Toe Unspec 250.02 Diabetes Mellitus W/O Compl Type II Or Unspec Type Uncontrol 584.5 Acute Kidney Failure With Lesion Of Tubular Necrosis Office Visit 06/06/2009 12:15a [facility] 250.00 Diabetes Assmanuel alvarez M.D. Mellitus W/O Hospitalists Compl Type II Or Unspec Controlled 730.20 Osteomyelitis Unspec Site Unspec 401.9 Hypertension Unspec Office Visit 06/05/2009 12:15a [facility] 250.00 Diabetes Assmanuel alvarez M.D. Mellitus W/O Hospitalists Compl Type II Or Unspec Controlled Office Visit 06/04/2009 12:15a [facility] 250.00 Diabetes Assmanuel alvarez M.D. Mellitus W/O Hospitalists Compl Type II Or Unspec Controlled 593.9 Kidney & Ureter Disorders Unspec Office Visit 06/02/2009 [facility], 730.20 Osteomyelitis 12:15a manuel Sosa M.D. Unspec Site Unspec Hospitalists 250.00 Diabetes Mellitus W/O Compl Type II Or Unspec Controlled Office Visit 06/01/2009 [facility], 730.20 Osteomyelitis 12:15a manuel Sosa M.D. Unspec Site Unspec Hospitalists Office Visit 05/31/2009 [facility], 730.20 Osteomyelitis 4:00a manuel Sosa M.D. Unspec Site Unspec Hospitalists Plan of Treatment Future Appointment(s):01/01/2019 11:30 am - William Chavez M.D., FACMelanie, FASNC at [facility]12/16/2018 11:00 am - Ica ECHO Schedule at [facility]08/15/2018 11:45 am - Garry Javed MD at [facility] Lbsmyhbzhidqoeeh53/21/2019 11:30 am - Adrián Louis M.D. at [facility]07/24/2018 1:00 pm - Josy Redding NP at [facility] Esjzghhy97/08/2019 - William Chavez M.D., [facility], MOGVXH28.0 Nonrheumatic aortic (valve) stenosisNew Orders:Echocardiogram, Ordered: 07/17/18Comments:As discussed, we will recheck your heart once your diarrhea is better controlled. Please call me if develop chest pain, fainting or significant shortness of breath. Ok for you to travel to [place], [place] by car but please stop every 2 hours and walk for 10 minutes.Follow up:after echo in 5 months Need cath note and discharge summary from [facility] from 12/27. Please check with your seismic survey assistant if you can restart your low dose aspirin 81 mg once a day.
--- OUTSIDE RECORDS SUMMARY | 2018-08-07 12:10 | XMS REPORT | Continuity of Care Document ---
:1965 External Reference #:[id number] Author Name Ta Baxter D.O. Address [address] [place] [id number] Care Team Providers Name Role Phone HCP given Primary Care Physician Unavailable Payers Date Identification Numbers Payment Provider Subscriber Effective: Policy Number: Zia Singletary 2017 [id number] Ind/Ppo/Hmo/Pos PayID: [id number] [address] [address] [place] [address] Effective: 1999 Policy Number: [facility] Katy Singletary [id number] PayID: [id number] [address] [place] [address] Advance Directives Description No Information Available Problems [...] History Date Family Member(s) Observation Comments Father RI Mother due to Liver Cancer () Paternal Grandmother Diabetes, Nos Maternal Grandfather Heart Disease Maternal Grandfather due to Heart Disease () Maternal Uncles due to CAD () Social History Type Date Description Comments Sex Unknown Education High School Completed Marital Status 12/2016 Lives With Alone Has daughter, but she is working on her Masters' degree, down in [place], [place]. Occupation [employer] Work Status Not Currently Working disability 2017 Years Employed over 30 years 20 years spent working at [employer] 06/06/2018 Right-handed Tobacco Use Start: Unknown Denies Cigarette Use ETOH Use Occassional Alcohol Hx binge drinking Recreational Drug Use Denies Drug Use Tobacco Use Start: Unknown Non Smoker Smoking Status Reviewed: 07/09/18 Non Smoker Exercise Type/Frequency Exercises sporadically walking [...] Medications SIG Qnty Indications Ordering Date Provider Loperamide HCL take 1 tablet after Unknown 07/05/2018 2mg 2 stools and after Capsules each consequent stool, total of 3 tablets a day Metoprolol Tartrate 1 tablet by mouth Unknown 07/05/2018 twice daily 25mg Tablets Cinacalcet HCL Take 1 Tablets By Unknown 06/17/2018 60mg Mouth Every Day Tablets Oxycodone HCL Take 1 Tablet By 12tabs Unknown 06/17/2018 5mg Mouth Every 6 Hours Tablets as Needed For Pain. Maximum Daily Dose 4 Tablets. Ferric Citrate 420 mg po tid Unknown 06/17/2018 w/meals Vitamin B Complex 1 by mouth once Unknown 06/17/2018 daily Tablets Fluticasone two sprays (50 16gm J30.9 Roman Villa, 06/06/2018 Propionate mcg/spray) per M.D. 50mcg/Act nostril once daily Suspension (can also try one spray per nostril bid) for allergies Lisinopril Take 1 Tablet By Katy Johnson, 05/24/2018 10mg Mouth AT Bedtime MD Li Blood Pressure Cuff use as directed 1units Roman Villa, 12/19/2017 M.Tj Misc Sertraline HCL 1.5 tabs by mouth 45tabs Roman Villa, 12/19/2017 100mg every day for mood M.D. Tablets Omeprazole take 1 capsule by 60caps Roman Villa, 04/25/2017 20mg mouth two times M.D. Capsules DR daily Simvastatin 1 tab by mouth 90tabs E11.21 Roman Villa, 02/13/2017 10mg daily at night M.D. Tablets History Medications Acidophilus 2 tabs by mouth Unknown 06/17/2018 - Lactobacillus daily 07/05/2018 Capsules Xifaxan 1 by mouth twice 180tabs K72.00 Sahil, 06/17/2018 - 550mg Tablets daily for 6 months Cher Chappell 07/01/2018 Metoprolol Tartrate 1 tablet by mouth Alex, 04/12/2018 - twice daily MD Katy 07/05/2018 50mg Tablets Benzonatate 1-2 capsules three 45caps R05 Allen, 03/08/2018 - 100mg times a day as Kathy Owens 06/17/2018 Capsules needed, for nonproductive cough Hydrocodone-Acetamin Take One Tablet By 20tabs Allen, 03/08/2018 - ophen Mouth Every 6 Hours Kathy Owens 06/17/2018 5-325mg Tablets as Needed For Cough Amoxicillin 1 tab by mouth 2 14tabs Allen, 01/17/2018 - 500mg times a day x 7 days Kathy Owens 03/07/2018 Tablets Potassium Chloride Take 1 Tablet By 30tabs Allen, 01/16/2018 - ER Mouth Every Day Kathy Owens 02/21/2018 10Meq Tablets ER Evaluate For The Evaluate and treat R41.3 Sahil, 12/14/2017 - Nursing Care & PT Cher Chappell 06/17/2018 E11.21 N18.6 Olopatadine HCL 1 drop in both eyes 5ml H53.8 Allen, 10/26/2017 - 0.1% daily Kathy Owens 03/07/2018 Solution Santyl apply 1 gm ointment 60gm E11.621 Silcoff, 10/26/2017 - 250Unit/GM qd to wound for one Kathy Owens 03/07/2018 Ointment month or until wound has closed. Sertraline HCL start 1 tab in the 60tabs Silcoliz, 10/26/2017 - 25mg morning, and if Kathy Owens 12/19/2017 Tablets tolerated, increase to 1 tab twice a day for anxiety and depression Metoprolol Tartrate take 1 tablet by 180tabs Allen, 06/12/2017 - mouth two times Kathy Owens 04/12/2018 25mg Tablets daily Ranitidine HCL Take 1 Capsule By 90caps Sahil, 06/12/2017 - 300mg Mouth Three Times Ta D.OJoey 06/17/2018 Capsules Daily Gabapentin 1 every morning, 2 180caps Allen, 06/11/2017 - 100mg every night at Kathy Owens 06/17/2018 Capsules bedtime for pain and sleep Tylenol give 1 tablet by Unknown 04/25/2017 - 325mg Tablets mouth [id number] as 06/17/2018 needed for pain otc Azithromycin [...] Amlodipine Besylate 1 tablets by mouth 60tabs Silcoliz, 2017 - daily Kathy Owens 06/17/2018 10mg Tablets Sevelamer Carbonate 3 tablets (1600 mg) 180tabs N18.6 Silcoliz, 2017 - 3 times a day with Kathy Owens 06/17/2018 800mg Tablets meals, 2 tabs if pt has a snack. Aspirin Low Dose 1 by mouth every Unknown 2017 - 81mg day for heart 04/25/[address] michaud Nitroglycerin Unknown - 0.4mg 06/17/2018 Tablets Sub Immunizations CPT Code Status Date Vaccine Lot # [id number] Given 06/06/2018 Shingrix Zoster (Shingles) Vaccine (HZV) [id number] Recomb,Subnit,Adjuvanted [id number] Given 06/06/2018 Prevnar 13 [id number] Given 12/19/2017 Shingrix Zoster (Shingles) Vaccine (HZV) [id number] Recomb,Subnit,Adjuvanted 50065 Given 12/19/2017 Adacel or Boostrix, TDaP [id number] Vital Signs Date Vital Result Comment 07/09/2018 9:51am BP Systolic 146 mmHg BP Diastolic 80 mmHg Weight 272.50 lb w/shoes 06/27/2018 9:47am BP Systolic 140 mmHg BP [...] Test Result H/L Range Note [facility] Ammonia 53 mcmol/L N 16-53 finding 9 [phone] Laboratory test [facility] Ceruloplasmin <pending> finding 9 [phone] Inr/Protime [facility] Inr 1.47 High 0.82-1.09 1 8 [phone] CBC Auto Diff [facility] Platelet Count Platelets High 150- 450 2 9 [phone] clumpe <SEE NOTE> 10^3/uL Red Blood Count 2.61 10^6/uL Low 4.18-5.48 Hemoglobin 8.9 g/dL Low 14.0-18.0 Hematocrit 28 % Low 42-52 Mean Corpuscular Volume 106 fL High 80-94 3 Mean Corpuscular Hemoglobin 34 pg High 27-31 Mean Corpuscular HGB Conc 32 g/dL N 31-36 Red Cell Distribution Width 20 % High 10.5-15 4 White Blood Count 13.3 10^3/uL High 3.5-10.8 5 Manual Differential 07/11/2018 [facility] Neutrophil % 69.0 % [phone] Lymphocytes % 18.0 % Monocytes % 10.0 % Eosinophils % 3.0 % Abs Neutrophils 9.2 10^3/uL High 1.5-7.7 Abs Lymphocytes 2.4 10^3/uL N 1.0-4.8 Abs Monocytes 1.3 10^3/uL High 0-0.8 Abs Eosinophils 0.4 10^3/uL N 0-0.6 Macrocytosis 2+ Anisocytosis 2+ Rouleaux 2+ Laboratory test 07/11/2018 [facility] B-Type > 1300 High <=100 finding [phone] Natriuretic pg/mL Peptide BNP Comp Metabolic 07/11/2018 [facility] Sodium 141 mmol/L N 135-145 Panel [phone] Potassium 3.4 mmol/L Low 3.5-5.0 Chloride 98 [...] Egfr Non- 8.7 >60 Egfr 10.5 >60 6 Iron & Iron Binding Capacity 07/11/2018 [facility] Iron 61 g/dL N 50-212 [phone] Unsaturated Iron Binding < 227 g/dL Total Iron Binding Capacity 242 g/dL Low 250-450 Transferrin 173 mg/dL Low 203-362 % Iron Saturation 25 % N 15-55 Laboratory test 07/11/2018 [facility] C Reactive 23.60 mg/L High < 8.01 finding [phone] Protein Ferritin 1290.9 ng/mL High 24-336 Vitamin B12 560 pg/mL N 180-914 7 Hemoglobin A1c (Glyco HGB) 5.4 % N 4.0-5.6 8 Laboratory test finding 07/01/2018 [facility] Magnesium 1.9 mg/dL N 1.9-2.7 [phone] Comp Metabolic Panel 07/01/2018 [facility] Sodium 135 mmol/L N 135- 145 [phone] Chloride 92 mmol/L Low 101-111 Co2 Carbon Dioxide 36 mmol/L High 22-32 Calcium 7.0 mg/dL Low 8.6-10.3 Albumin 2.9 g/dL Low 3.2-5.2 Total Bilirubin 0.60 mg/dL N 0.2-1.0 Potassium 2.5 mmol/L Low 3.5-5.0 9 Anion Gap 7 mmol/L N 2-11 Glucose 166 mg/dL High 70-100 Blood Urea Nitrogen 12 mg/dL N 6-24 Creatinine 3.83 mg/dL High 0.67-1.17 BUN/Creatinine Ratio 3.1 Low 8-20 Total Protein 5.7 g/dL Low 6.4-8.9 Globulin 2.8 g/dL N 2-4 Albumin/Globulin Ratio 1.0 N 1-3 Alkaline Phosphatase 103 U/L N 34-104 Alt 22 U/L N 7-52 Ast 18 U/L N 13-39 Egfr Non- 16.5 >60 Egfr 20.0 >60 10 CBC Auto Diff 07/01/2018 [facility] White Blood Count 5.8 10^3/uL N 3.5-10.8 [phone] Red Blood Count 2.12 10^6/uL Low 4.18-5.48 Hemoglobin 7.3 g/dL Low 14.0-18.0 Hematocrit 22 % Low 36-46 Mean Corpuscular Volume 104 fL High 80-94 Mean Corpuscular Hemoglobin 35 pg High 27-31 Mean Corpuscular HGB Conc 33 g/dL N 31-36 Red Cell Distribution Width 20 % High 10.5-15 Platelet Count 162 10^3/uL N 150-450 Mean Platelet Volume 8.9 fL N 7.4-10.4 Abs Neutrophils 3.6 10^3/uL N 1.5-7.7 Abs Lymphocytes 1.6 10^3/uL N 1.0-4.8 Abs Monocytes 0.4 10^3/uL N 0-0.8 Abs Eosinophils 0.2 10^3/uL N 0-0.6 Abs Basophils 0 10^3/uL N 0-0.2 Abs Nucleated RBC 0 10^3/uL Granulocyte % 62.7 % Lymphocyte % 27.1 % Monocyte % 6.9 % Eosinophil % 2.9 % Basophil % 0.4 % Nucleated Red Blood Cells % 0.1 Laboratory test finding 07/01/2018 [facility] Magnesium 2.0 mg/dL N 1.9-2.7 [phone] Acetaminophen < 15 g/mL 11 Ammonia 45 mcmol/L N 16-53 C Reactive Protein 11.19 mg/L High <8.01 TSH (Thyroid Stim Horm) 1.23 mcIU/mL N 0.34-5.60 Troponin-I (TnI) 0.05 ng/mL High <0.04 12 Comp Metabolic Panel 07/01/2018 [facility] Sodium 135 mmol/L N 135- 145 [phone] Chloride 91 mmol/L Low 101-111 Co2 Carbon Dioxide 37 mmol/L High 22-32 Glucose 169 mg/dL High 70-100 Blood Urea Nitrogen 14 mg/dL N 6-24 Creatinine 4.43 mg/dL High 0.67-1.17 BUN/Creatinine Ratio 3.2 Low 8-20 Calcium 7.5 mg/dL Low 8.6-10.3 Total Protein 6.4 g/dL N 6.4-8.9 Albumin 3.3 g/dL N 3.2-5.2 Globulin 3.1 g/dL N 2-4 Albumin/Globulin Ratio 1.1 N 1-3 Total Bilirubin 0.70 mg/dL N 0.2-1.0 Alkaline Phosphatase 120 U/L High 34-104 Alt 23 U/L N 7-52 Ast 19 U/L N 13-39 Egfr Non- 14.0 >60 Egfr 16.9 >60 13 Potassium 2.4 mmol/L Low 3.5-5.0 14 Anion Gap 7 mmol/L N 2-11 Laboratory test finding 07/01/2018 [facility] Lactic Acid 1.6 mmol/L N 0.5-2.0 15 [phone] Calcium Ionized 0.92 mmol/L Low 1.16-1.32 CBC Auto Diff 07/01/2018 [facility] White Blood Count 5.0 10^3/uL N 3.5-10.8 [phone] Red Blood Count 2.50 10^6/uL Low 4.18-5.48 Hemoglobin 8.8 g/dL Low 14.0-18.0 Hematocrit 26 % Low 36-46 Mean Corpuscular Volume 105 fL High 80-94 Mean Corpuscular Hemoglobin 35 pg High 27-31 Mean Corpuscular HGB Conc 34 g/dL N 31-36 Red Cell Distribution Width 20 % High 10.5-15 Platelet Count 165 10^3/uL N 150-450 Mean Platelet Volume 8.7 fL N 7.4-10.4 Abs Neutrophils 2.9 10^3/uL N 1.5-7.7 Abs Lymphocytes 1.6 10^3/uL N 1.0-4.8 Abs Monocytes 0.3 10^3/uL N 0-0.8 Abs Eosinophils 0.1 10^3/uL N 0-0.6 Abs Basophils 0 10^3/uL N 0-0.2 Abs Nucleated RBC 0 10^3/uL Granulocyte % 57.6 % Lymphocyte % 32.8 % Monocyte % 6.5 % Eosinophil % 2.7 % Basophil % 0.4 % Nucleated Red Blood Cells % 0.1 Venous Blood Gas 07/01/2018 [facility] Venous Blood pH 7.47 High 7.32 -7.43 [phone] Venous Pco2 53 mmHg High 41-51 Venous Po2 55.0 mmHg High 35-45 Venous O2 Saturation 89.3 % High 70-80 Venous Blood Base Excess 12.7 mmol/L High 0.0-4.0 16 Venous Bicarbonate Hco3 34.6 mmol/L High 24-28 Lipid Profile 06/28/2018 [facility] Triglycerides 100 mg/dL 17 (Trig/Chol/HDL) [phone] Cholesterol 113 mg/dL 18 HDL Cholesterol 40.0 mg/dL 19 LDL Cholesterol 53 mg/dL 20 Hepatitis C Antibody 06/28/2018 [facility] HCV Index 0.1 Index [phone] Hepatitis C Antibody Nonreactive Nonreactive CBC Auto Diff 06/28/2018 [facility] White Blood Count 8.7 10^3/uL N 3.5-10.8 [phone] Red Blood Count 2.50 10^6/uL Low 4.18-5.48 Hemoglobin 8.5 g/dL Low 14.0-18.0 Hematocrit 26 % Low 36-46 Mean Corpuscular Volume 104 fL High 80-94 Mean Corpuscular Hemoglobin 34 pg High 27-31 Mean Corpuscular HGB Conc 33 g/dL N 31-36 Red Cell Distribution Width 19 % High 10.5-15 Platelet Count 207 10^3/uL N 150-450 Mean Platelet Volume 9.1 fL N 7.4-10.4 Abs Neutrophils 6.0 10^3/uL N 1.5-7.7 Abs Lymphocytes 2.1 10^3/uL N 1.0-4.8 Abs Monocytes 0.6 10^3/uL N 0-0.8 Abs Eosinophils 0.1 10^3/uL N 0-0.6 Abs Basophils 0.1 10^3/uL N 0-0.2 Abs Nucleated RBC 0 10^3/uL Granulocyte % 68.2 % Lymphocyte % 23.6 % Monocyte % 6.4 % Eosinophil % 1.0 % Basophil % 0.8 % Nucleated Red Blood Cells % 0 Laboratory test 06/07/2018 [facility] Rapid Influenza SEE RESULT 21 finding [phone] A B Antigen BELOW Rapid Influenza 06/07/2018 [facility] Influenza A NEGATIVE Negative 22 A & B Molecular [phone] Molecular Influenza B Molecular NEGATIVE Negative Laboratory test finding 06/07/2018 [facility] Acetaminophen < 15 g/ mL 23 [phone] Pediatric Blood Culture SEE RESULT BELOW 24 Urine Culture And 06/07/2018 [facility] Urine Culture SEE RESULT 25 Sensitivities [phone] BELOW Laboratory test finding 06/07/2018 [facility] Blood Culture SEE RESULT 26 [phone] BELOW Urinalysis Profile 06/07/2018 [facility] Urine Color Yellow [phone] Urine Appearance Cloudy Urine Specific Rothschild 1.009 Low 1.010-1.030 Urine pH 9.0 N [...] Epithelial Cell Present Abnormal Absent Laboratory test 06/07/2018 [facility] Partial 34.0 seconds N 26.0- 36.3 finding [phone] Thrombo Time PTT Inr/Protime 06/07/2018 [facility] Inr 1.67 High 0.77-1.02 [phone] Laboratory test 06/07/2018 [facility] C Reactive 42.00 mg/L High < 8.01 finding [phone] Protein Troponin-I (TnI) 0.07 ng/mL High <0.04 27 Comp Metabolic Panel 06/07/2018 [facility] Sodium 138 mmol/L N 135- 145 [phone] Potassium 2.8 mmol/L Low 3.5-5.0 Chloride 93 [...] Egfr Non- 11.6 >60 Egfr 14.0 >60 28 CBC Auto Diff 06/07/2018 [facility] White Blood Count 6.9 10^3/uL N 3.5-10.8 [phone] Red Blood Count 2.31 10^6/uL Low 4.18-5.48 [...] Red Blood Cells % 0.1 Laboratory test 06/07/2018 [facility] Lactic Acid 1.2 mmol/L N 0.5- 2.0 29 finding [phone] Laboratory test 06/06/2018 [facility] House Hemoglobin A1c 5.5 finding Basic Metabolic 05/10/2018 [facility] Sodium 138 mmol/L N 135-145 Panel [phone] Potassium 2.9 mmol/L Low 3.5-5.0 Chloride 92 mmol/L Low 101-111 Co2 Carbon Dioxide 36 mmol/L High 22-32 Anion Gap 10 mmol/L N 2-11 Glucose 103 mg/dL High 70-100 Blood Urea Nitrogen 15 mg/dL N 6-24 Creatinine 4.01 mg/dL High 0.67-1.17 BUN/Creatinine Ratio 3.7 Low 8-20 Calcium 9.1 mg/dL N 8.6-10.3 Egfr Non- 15.7 >60 Egfr 19.0 >60 30 CBC Auto Diff 05/10/2018 [facility] White Blood Count 7.3 10^3/uL N 3.5-10.8 [phone] Red Blood Count 2.68 10^6/uL Low 4.00-5.40 [...] % Nucleated Red Blood Cells % 0 Laboratory test 05/10/2018 [facility] Partial 33.6 N 26.0-36.3 finding [phone] Thrombo Time seconds PTT Inr/Protime 05/10/2018 [facility] Inr 1.37 High 0.77-1.02 [phone] Laboratory test 03/29/2018 [facility] Tissue SEE RESULT 31, 32 finding [phone] Culture & BELOW Sensitiv Ua Inhouse 03/08/2018 In House Ua Glucose trace Ua Specific Rothschild 1.005 Ua Blood +2 Ua PH 8.5 Ua Protein +3 Laboratory test finding 03/08/2018 In House Culture Throat negative Culture Throat Rapid Screen negative Urine Culture And 01/16/2018 [facility] Urine Culture SEE RESULT 33 Sensitivities [phone] BELOW Comp Metabolic Panel 01/16/2018 [facility] Sodium 140 mmol/L N 135- 145 [phone] Potassium 3.2 mmol/L Low 3.5-5.0 Chloride 93 [...] Egfr Non- 7.1 >60 Egfr 8.6 >60 34 Urine Microalbumin 01/16/2018 [facility] Urine Creatinine 114.23 mg/dL Random [phone] Ur Microalbumin (mg/L) > 1500.0 Urine Microalbumin/Creatinine 1313.1 High <31 Urinalysis Profile 01/16/2018 [facility] Urine Color Yellow [phone] Urine Appearance Cloudy Urine Specific Rothschild 1.010 N 1.010-1.030 Urine pH 9.0 N [...] Epithelial Cell Present Abnormal Absent Inr/Protime 01/16/2018 [facility] Inr 1.20 High 0.77-1.02 [phone] CBC Auto Diff 01/16/2018 [facility] White Blood 7.9 10^3/uL N 3.5- 10.8 [phone] Count Red Blood Count 2.95 10^6/uL Low [...] Red Blood Cells % 0 Laboratory test 01/16/2018 [facility] Hemoglobin A1c 5.3 % N 4.0-5.6 35 finding [phone] (Glyco HGB) Laboratory test 10/26/2017 In House Hemoglobin A1c 5.5 finding CBC Auto Diff 07/28/2017 [facility] White Blood Count 8.7 N 3.5-10.8 [phone] 10^3/uL Red Blood Count 3.68 10^6/uL Low 4.0-5.4 [...] Blood Cells % 0 Laboratory test 07/28/2017 [facility] B-Type Natriuretic 39 pg/mL 36 finding [phone] Peptide BNP Comp Metabolic 07/28/2017 [facility] Sodium 134 mmol/L Low 139-14 Panel [phone] Potassium 3.2 mmol/L Low 3.5-5.0 Chloride [...] Egfr Non- 11.2 >60 Egfr 14.4 >60 37 Laboratory test 07/28/2017 [facility] Troponin-I (TnI) 0.04 ng/mL High <0.04 38 finding [phone] TSH (Thyroid Stim Horm) 1.44 mcIU/mL N 0.34-5.60 Laboratory test 07/28/2017 [facility] Lactic Acid 1.9 mmol/L N 0.5- 2.0 39 finding [phone] Inr/Protime 07/28/2017 [facility] Inr 1.20 High 0.77-1.02 [phone] Laboratory test 07/28/2017 [facility] Troponin-I 0.03 ng/mL <0.04 finding [phone] (TnI) Type & Screen 05/21/2017 [facility] Blood A Positive 40 [phone] Type Antibody Screen NEGATIVE Laboratory test 05/21/2017 [facility] Packed Cells SEE RESULTS 41 finding [phone] BELO <SEE NOTE> Laboratory test 05/07/2017 [facility] Lactic Acid 1.5 mmol/L N 0.5- 2.0 42 finding [phone] Laboratory test 05/01/2017 [facility] Surgical SEE RESULT 43 finding [phone] Interface Order BELOW Laboratory test 05/01/2017 [facility] Clotest SEE RESULT 44 finding [phone] BELOW Urinalysis 02/17/2017 [facility] Urine Color Straw Profile [phone] Urine Appearance Clear Urine Specific Rothschild 1.004 Low 1.010-1.030 Urine pH 9.0 N [...] Urine Bacteria Absent Absent Laboratory test 02/17/2017 [facility] Wound Culture/Sensi SEE RESULT 45 finding [phone] BELOW MRSA/S. aureus Ssti PCR SEE RESULT BELOW 46 Laboratory test 02/17/2017 [facility] Lactic Acid 0.9 mmol/L N 0.5- 2.0 47 finding [phone] Laboratory test 02/17/2017 [facility] Erythrocyte Sed 120 mm/Hr High 0-20 finding [phone] Rate Blood Culture SEE RESULT BELOW 48 CBC Auto Diff 02/17/2017 [facility] White Blood 11.8 10^3/uL High 3.5 -10.8 [phone] Count Red Blood Count 2.45 10^6/uL Low [...] Cells % 0 Laboratory test finding 02/17/2017 [facility] Uric Acid 3.1 mg/dL Low 4.4-7.6 [phone] C Reactive Protein 12.71 mg/L High < 5.00 49 Comp Metabolic Panel 02/17/2017 [facility] Sodium 135 mmol/L N 133- 145 [phone] Potassium 4.9 mmol/L N 3.5-5.0 Chloride 96 [...] Egfr Non- 13.4 >60 Egfr 17.2 >60 50 Lipid Profile 02/15/2017 [facility] Triglycerides 121 mg/dL 51 (Trig/Chol/HDL) [phone] Cholesterol 126 mg/dL 52 HDL Cholesterol 43.4 mg/dL 53 LDL Cholesterol 58 mg/dL 54 Comp Metabolic Panel 02/15/2017 [facility] Sodium 138 mmol/L N 133- 145 [phone] Potassium 4.7 mmol/L N 3.5-5.0 Chloride 95 [...] Egfr Non- 19.6 >60 Egfr 25.3 >60 55 CBC Auto Diff 02/15/2017 [facility] White Blood 11.5 10^3/uL High 3.5 -10.8 [phone] Count Red Blood Count 2.66 10^6/uL Low [...] Blood Cells % 0 Laboratory test 02/15/2017 [facility] TSH (Thyroid 3.28 mcIU/mL N 0.34-5.60 finding [phone] Stim Horm) Laboratory test 02/13/2017 In House Hemoglobin A1c 5.7 finding CBC Auto Diff 02/06/2017 [facility] White Blood 8.1 10^3/uL N 3.5- 10.8 [phone] Count Red Blood Count 2.48 10^6/uL Low [...] Cells % 0 Comp Metabolic Panel 02/06/2017 [facility] Sodium 137 mmol/L N 133- 145 [phone] Potassium 4.3 mmol/L N 3.5-5.0 Chloride 97 [...] Egfr Non- 13.9 >60 Egfr 17.9 >60 56 Laboratory test finding 02/06/2017 [facility] Lipase 28 U/L N 11.0- 82.0 [phone] 1 Standard intensity warfarin therapeutic range: 2.0-3.0 High intensity warfarin therapeutic range: 2.5-3.5 2 Platelets clumped. Unable to perform accurate count. 3 Consistent with Previous Results Reported on 07/05/18 4 Consistent with Previous Results Reported on 07/05/18 5 White count confirmed by estimate 6 Because ethnic data is not always [...] 5 Kidney failure <15 (or dialysis) 7 Normal Range 180 to 914 Indeterminate Range 145 to 180 Deficient Range <145 8 Therapeutic target for the treatment of diabetes mellitus patients is <7% HBA1C, and in selective patients <6.0%. Please refer to [place] [employer] diabetic care guidelines for further information. 9 Critical Result K:2.5 Called to [id number] at: 11:06:46 by:[id number] Read back by:[id number] 10 Because ethnic data is not always [...] 5 Kidney failure <15 (or dialysis) 11 Therapeutic concentration: <50 ug/mL Toxic concentration: >120 ug/mL 12 Result TnIDx:0.05 Called to [id number] at: 19:01:43 by:[id number] Read back by: [id number] Troponin-I testing on Plasma Separator Tubes (PST) has a known false positive rate of 0.20-0.40%. All positive troponins reflex immediately to secondary confirmatory testing. Using the [employer] DxI 800 Access Immunoassay systems, the 99th percentile upper reference limit was demonstrated to be < 0.03 ng/mL. 13 Because ethnic data is not always [...] 5 Kidney failure <15 (or dialysis) 14 Critical Result K:2.4 Called to [id number] at: 10:37:31 by:[id number] Read back by:[id number] 15 [facility] Severe Sepsis and Septic Shock Management Bundle Measure requires all lactic acids initially measuring >2.0 mmol/L be repeated. 16 Reference ranges based on room air. 17 Desirable: <150 Borderline High: 150-199 High: 200-499 Very High: >500 18 Desirable: <200 Borderline High: 200-239 High: >239 19 Low: <40 Desirable: 40-60 High: >60 20 Desirable: <100 Near Optimal: 100-129 Borderline High: 130-159 High: 160-189 Very High: >189 21 SEE RESULT BELOW Name: KATY SINGLETARY : [address]: Ellis Elise MD Acct: [id number] Unit: [id number] AGE: 53 Location: ED Re06/07/18 SEX: M Status: REG ER SPEC: [id number] ANGELES: 06/07/18-[address]: Ellis Elise MD REQ: [id number] RECD: 06/07/18 STATUS: COMP [facility] DR: Lety Santamaria [facility] _ SOURCE: NASAL SPDESC: ORDERED: Flu A B Request Procedure Result Reported Site Rapid Influenza A B Request Final 06/07/18- 152 ML Specimen received for Influenza A/B Molecular testing * ML - Main Lab . END OF REPORT DEPARTMENT OF PATHOLOGY, [address] [place] [address] Juan Deleon M.D. Director [facility] # [id number] 22 Sewing Room Supervisor: [id number] Therapeutic concentration: <50 ug/mL Toxic concentration: >120 ug/mL 24 SEE RESULT BELOW Name: KATY SINGLETARY : [address]: Philly Miller MD Acct: [id number] Unit: [id number] AGE: 53 Location: [place] [address] Re06/07/18 SEX: M Status: ADM IN SPEC: [id number] ANGELES: 06/07/18-1446 [facility] DR: Ellis Elise MD REQ: [id number] RECD: 06/07/18 STATUS: ROM OZUNA DR: Lety JARVIS _ SOURCE: BLOOD,VENO SPDESC: ORDERED: Blood Cult, Pediatric Bottl Procedure Result Reported Site Pediatric Blood Culture Final 06/12/18- 1510 ML No Growth Day 5 * ML - Main Lab . END OF REPORT DEPARTMENT OF PATHOLOGY, [address] [place] [address] Juan Deleon M.D. Director [facility] # [id number] 25 SEE RESULT BELOW Name: KATY SINGLETARY : [address]: Jamal Mcghee MD Acct: [id number] Unit: [id number] AGE: 53 Location: [place] [address] Re06/07/18 SEX: M Status: ADM IN SPEC: [id number] ANGELES: 06/07/18-[address]: Ellis Elise MD REQ: [id number] RECD: 06/07/18 STATUS: ROM OZUNA DR: Lety JARVIS _ SOURCE: URINE SPDESC: ORDERED: Urine Culture Procedure Result Reported Site Urine Culture Final 06/09/18- 0916 ML No growth of clinically significant organisms * ML - Main Lab . END OF REPORT DEPARTMENT OF PATHOLOGY, [address] [place] [address] Juan Deleon M.D. Director [facility] # [id number] 26 SEE RESULT BELOW Name: KATY SINGLETARY : [address]: Philly Miller MD Acct: [id number] Unit: [id number] AGE: 53 Location: [place] [address] Re06/07/18 SEX: M Status: ADM IN SPEC: [id number] ANGELES: 06/07/18 [facility] [facility] DR: Ellis Elise MD REQ: [id number] RECD: 06/07/18 STATUS: ROM OZUNA DR: Lety Santamaria RPA-C _ SOURCE: BLOOD,VENO SPDESC: ORDERED: Blood Cult Procedure Result Reported Site Aerobic Culture Bottle Final 06/12/18- 1506 ML No Growth Day 5 Anaerobic Culture Bottle Final 06/12/18- 1506 ML No Growth Day 5 * ML - Main Lab . END OF REPORT DEPARTMENT OF PATHOLOGY, [address] [place] [id number] Juan Deleon M.D. Director [facility] # [id number] 27 Result TnIDx:0.07 Called to [id number] at: 16:26:39 by:[id number] Read back by: [id number] Troponin-I testing on Plasma Separator Tubes (PST) has a known false positive rate of 0.20-0.40%. All positive troponins reflex immediate secondary confirmatory testing. 28 Because ethnic data is not always readily [...] 15-29 5 Kidney failure <15 (or dialysis) 29 [facility] Severe Sepsis and Septic Shock Management Bundle Measure requires all lactic acids initially measuring >2.0 mmol/L be repeated. 30 Because ethnic data is not always [...] 5 Kidney failure <15 (or dialysis) 31 RIGHT FOOT 32 SEE RESULT BELOW Name: KATY SINGLETARY Donnell : [address]: Amparo Landis NP Acct: [id number] Unit: [id number] AGE: 53 Location: WOUND Re03/29/18 SEX: M Status: REG REF SPEC: [id number] ANGELES: 03/29/18-1413 [facility] DR: Amparo Landis NP REQ: [id number] RECD: 03/29/18 STATUS: ROM OZUNA DR: Lety JARVIS _ SOURCE: TISSUE SPDESC:RIGHT ORDERED: Tissue Cult/ANA COMMENTS: RIGHT PLANTAR FOOT WOUND Procedure Result [...] CONTINUED ON NEXT PAGE DEPARTMENT OF PATHOLOGY, [address] [place] [address] Juan Deleon M.D. Director [facility] # [id number] Patient: KATY SINGLETARY [id number] (Continued) Specimen: [id number] Collected: 03/29/18141 Received: 03/29/18740 (Continued) Procedure Result Reported Site Tissue Culture [...] END OF REPORT DEPARTMENT OF PATHOLOGY, [address] [place] [address] Juan Deleon M.D. Director [facility] # [id number] 33 SEE RESULT BELOW Name: KATY SINGLETARY Donnell : [address]: Lety JARVIS Acct: [id number] Unit: [id number] AGE: 52 Location: [facility] Re01/16/18 SEX: M Status: REG REF SPEC: [id number] ANGELES: 01/16/[address]: Lety JARVIS REQ: [id number] RECD: 01/16/18 STATUS: ROM OZUNA DR: Scott Boyd MD _ SOURCE: URINE SPDESC: ORDERED: Urine Culture Procedure Result Reported Site Urine Culture Final 01/17/18- 1525 ML Organism 1 STREP GROUP B [place] Count 1-10,000 (Few) CFU/ML Susceptibility testing of penicillins and other B-lactams approved by FDA for treatment of Streptococcus pyogenes (Group A Strep) and Streptococcus agalactiae (Group B Strep) is not necessary for clinical purposes and need not be done routinely, since as with vancomycin, resistant strains have not been recognized. (CLSI F617-F23;p.66) Positive isolates will be saved for one week. Please call the Microbiology Laboratory if further susceptibility testing is needed. * ML - Main Lab . END OF REPORT DEPARTMENT OF PATHOLOGY, [address] [place] [address] Juan Deleon M.D. Director [facility] # [id number] 34 Because ethnic data is not always readily [...] 15-29 5 Kidney failure <15 (or dialysis) 35 Therapeutic target for the treatment of diabetes mellitus patients is <7% HBA1C, and in selective patients <6.0%. Please refer to [place] [employer] diabetic care guidelines for further information. 36 >100 to <200 pg/mL: likely compensated congestive heart failure (CHF) 200 to 400 pg/mL: likely moderate CHF >400 pg/mL: likely moderate to severe CHF 37 Because ethnic data is not always readily [...] 15-29 5 Kidney failure <15 (or dialysis) 38 Result TnIDx:0.04 Called to [id number] at: 17:43:09 by:[id number] Read back by: [id number] 39 [facility] Severe Sepsis and Septic Shock Management Bundle Measure requires all lactic acids initially measuring >2.0 mmol/L be repeated. 40 BLOOD WORK 41 SEE RESULTS BELOW [id number] AP PC TRANSFUSED 05/21/172000 42 [facility] Severe Sepsis and Septic Shock Management Bundle Measure requires all lactic acids initially measuring >2.0 mmol/L be repeated. 43 SEE RESULT BELOW Name: KATY SINGLETARY: [address]: Garry Javed MD Acct: [id number] Unit: [id number] AGE: 52 Location: ENDO Re05/01/17 SEX: M Status: DEP REF SPEC: [id number] ANGELES: 05/01/17- SUBM DR: Garry Javed MD REQ: [id number] RECD: 05/01/17 STATUS: CINTIA OZUNA DR: Lety Johnson MD _ ORDERED: LEVEL 4/3, IMMUNO-FIRST, [...] performed at Main Lab DEPARTMENT OF PATHOLOGY, [address] [place] [address] Juan Deleon M.D. Director [facility] # [id number] RUN DATE: 05/04/17 [facility] LAB LIVE PAGE 2 Patient: KATY SINGLETARY [id number] (Continued) CLINICAL HISTORY (Continued) CLINICAL HISTORY Anemia, [...] performed at Main Lab DEPARTMENT OF PATHOLOGY, [address] [place] [address] Juan Deleon M.D. Director [facility] # [id number] 44 SEE RESULT BELOW Name: KATY SINGLETARY : [address]: Garry Javed MD Acct: [id number] Unit: [id number] AGE: 52 Location: ENDO Re05/01/17 SEX: M Status: DEP REF SPEC: [id number] ANGELES: 05/01/17-[address]: Garry Javed MD REQ: [id number] RECD: 05/03/17-5185 STATUS: ROM OZUNA DR: Lety JARVIS _ SOURCE: GAS ANTRUM SPDESC: ORDERED: Clotest Procedure Result Reported Site Clotest Final 05/04/17930 ML Clotest Negative * ML - MAIN LAB ([facility]) . END OF REPORT * ML=Testing performed at Main Lab DEPARTMENT OF PATHOLOGY, [address] [place] [address] Juan Deleon M.D. Director [facility] # [id number] 45 SEE RESULT BELOW Name: KATY SINGLETARY : [address]: Fermín Oscar MD Acct: [id number] Unit: [id number] AGE: 52 Location: ED Re02/17/17 SEX: M Status: REG ER SPEC: [id number] ANGELES: 02/17/[address]: Fermín Oscar MD REQ: [id number] RECD: 02/17/17 STATUS: RES [facility] DR: Lety Santamaria [facility] _ SOURCE: FOOT,LEFT SPDESC: ORDERED: Culture Stain Procedure Result Reported Site Wound/Misc Gram Stain Final 02/17/17- 190 ML 1+ Epithelial Cells 1+ Neutrophils 4+ Gram Positive Cocci in Clusters, resembling Staph 3+ Gram Negative Bacilli Wound/Misc Culture PENDING * ML - MAIN LAB ([facility]) . END OF REPORT * ML=Testing performed at Main Lab DEPARTMENT OF PATHOLOGY, [address] [place] [address] Juan Deleon M.D. Director [facility] # [id number] 46 SEE RESULT BELOW Name: KATY SINGLETARY : [address]: Philly Miller MD Acct: [id number] Unit: [id number] AGE: 52 Location: [place] [id number] Re02/17/17 SEX: M Status: ADM IN SPEC: [id number] ANGELES: 02/17/[address]: Fermín Oscar MD REQ: [id number] RECD: 02/17/17 STATUS: ROM OZUNA DR: [facility] _ SOURCE: FOOT,LEFT SPDESC: ORDERED: MRSA/SA SSTI, [...] performed at Main Lab DEPARTMENT OF PATHOLOGY, [address] [place] [address] Juan Deleon M.D. Director [facility] # [id number] Patient: KATY SINGLETARY [id number] (Continued) Specimen: [id number] Collected: 02/17/17 Received: 02/17/17 (Continued) Procedure Result Reported Site Wound/Misc Culture Final (continued) 02/20/171026 1. ENTEROCOCCUS FAECALIS (continued) M.I.C. RX --------- ------ * Streptomycin High Level S Tetracycline >=16 R Tigecycline <=0.12 S Vancomycin 1 S Imipenem-Deduced S * Ampicillin/Sulbactam-Deduced S * These antibiotics are not available in the [facility] Formulary Contact the Microbiology Department for any additional antibiotic reporting. * ML - MAIN LAB ([facility]) . END OF REPORT * ML=Testing performed at Main Lab DEPARTMENT OF PATHOLOGY, [address] [place] [address] Juan Deleon M.D. Director [facility] # [id number] 47 [facility] Severe Sepsis and Septic Shock Management Bundle Measure requires all lactic acids initially measuring >2.0 mmol/L be repeated. 48 SEE RESULT BELOW Name: KATY SINGLETARY : [address]: Philly Miller MD Acct: [id number] Unit: [id number] AGE: 52 Location: [place] [address] Re02/17/17 SEX: M Status: ADM IN SPEC: [id number] ANGELES: 02/17/17 [facility] DR: Fermín Oscar MD REQ: [id number] RECD: 02/17/17 STATUS: RES SULMA DR: Lety Santamaria RPA-C _ SOURCE: BLOOD,VENO SPDESC: ORDERED: Blood Cult Procedure Result Reported Site Aerobic Culture Bottle Preliminary 02/18/17- 1809 ML No Growth Day 1 Anaerobic Culture Bottle Preliminary 02/18/17- 1807 ML No Growth Day 1 * ML - MAIN LAB ([facility]) . END OF REPORT * ML=Testing performed at Main Lab DEPARTMENT OF PATHOLOGY, [address] [place] [address] Juan Deleon M.D. Director [facility] # [id number] 49 Acute inflammation: >10.00 50 Because ethnic data is not always readily [...] 15-29 5 Kidney failure <15 (or dialysis) 51 Desirable: <150 Borderline High: 150-199 High: 200-499 Very High: >500 52 Desirable: <200 Borderline High: 200-239 High: >239 53 Low: <40 Desirable: 40-60 High: >60 54 Desirable: <100 Near Optimal: 100-129 Borderline High: 130-159 High: 160-189 Very High: >189 55 Because ethnic data is not always readily [...] 15-29 5 Kidney failure <15 (or dialysis) 56 Because ethnic data is not always readily [...] dialysis) Procedures Date Code Description Status 01/16/2018 55343 Brief Emotional/Behav Assessment W/ Scoring Doc Per Completed Standard Inst 01/02/2018 [id number] Diabetic Retinal Eye Exam Completed 05/01/2017 [id number] Colonoscopy Completed 03/12/2017 [id number] Diabetic Foot Exam Completed Encounters Type Date Location Provider Dx Diagnosis Office Visit 07/09/2018 Main Office Ta Baxter, E11.21 Type 2 diabetes 9:45a D.O. 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 emergency E11.21 Type 2 diabetes mellitus with diabetic nephropathy R19.7 Diarrhea, unspecified N18.6 End stage renal disease Office Visit 06/21/2018 1:40p Main Office Riddhi Storey, I16.1 Hypertensive P.A. emergency E11.21 Type 2 diabetes mellitus with diabetic [...] Office Visit 03/08/2018 4:00p Main Office Riddhi Storey J02.9 Acute pharyngitis, P.A. unspecified R05 Cough [...] Office Visit 06/22/2017 1:40p Main Office Riddhi Storey, E11.21 Type 2 [...] F43.20 Adjustment disorder, unspecified Plan of Treatment Future Appointment(s):12/27/2018 11:30 am - Ta Baxter D.O. at Main Esrruv3307/09/2018 - Ta Baxter D.O.E11.21 Type 2 diabetes mellitus with diabetic nephropathyFollow up:as bkjpltqeaY22.7 Diarrhea, aokgvgnuwrwA29.6 End stage renal xxkfdypS12.10 Toxic liver disease with hepatic necrosis, without comaR53.1 RrbqzqzvP17.1 Anemia in chronic kidney fisyqjlT05.2 Dependence on renal soxazjsaF44 Essential (primary) ijmixxtchhpaP65.519 Non-pressure chronic ulcer of other part of right foot withF43.23 Adjustment disorder with mixed anxiety and depressed moodR60.9 Edema, yotoqkegglpJ53.7 VthsonvircnaS58.1 Cardiac murmur, unspecified
--- OUTSIDE RECORDS SUMMARY | 2018-08-07 12:10 | XMS REPORT | Continuity of Care Document ---
:1965 External Reference #:[id number] Author Name CallieJoellen rivera Care Team Providers Name Role Phone Lety Santamaria PA Primary Care Physician Unavailable Payers Date Identification Numbers Payment Provider Subscriber Effective: Policy Number: [id number] [facility] Katy Jacobo Gemini 2009 PayID: [id number] [address] [address] [place] [address] Policy Number: [id number] Medicare Katy Jacobo [place] PayID: [id number] [address] [place] [address] Advance Directives Type Date Description Status Comment Other Directive 06/14/2018 Health Care Proxy Current and Verified Problems Active Problems Provider Date Chronic osteomyelitis of ankle Adrián Louis M.D. Onset: 02/03/2015 and/or foot Mitral valve disorder William Chavez M.D., [facility], Onset: 03/30/2017 [facility] Essential hypertension William Chavez M.D., [facility], Onset: 03/30/2017 [facility] Family History Date Family Member(s) Observation Comments General Father-PR General mother- due to liver cancer. General paternal zzudtovmtqs-wiraurcn-GRU General Maternal grandfather-heart disease- due to General - 12/2016-PR Father Heart Disease Mother due to Liver Cancer () - age 60 something Siblings 1 sister- 51-Guillian Aurora syndrome as a teenager Social History Type Date Description Comments Sex Unknown Marital Status Lives With Patient in december-2016 Lives With Alone Occupation Disabled in 2017 ETOH Use Occasionally consumes alcohol Tobacco Use Start: Unknown Patient has never smoked Recreational Drug Use Denies Drug Use Smoking Status Reviewed: 07/15/18 Patient has never smoked Exercise Type/Frequency Does [...] Unknown meals Sertraline HCL 1.5 tabs by Unknown 100mg mouth every day Tablets Xifaxan 1 by mouth [...] Unknown 60mg Tablets By Mouth Every Day Aspirin 1 by mouth Unknown 81mg Tablets DR every day Afua-Dennis 1 tab daily Unknown Tablets Renvela twice daily Unknown 800mg Tablets Omeprazole Take 1 Capsule Unknown 20mg Capsules DR By Mouth Two Times Daily Acetaminophen 2 tabs 3x a day Unknown 325mg Tablets as needed Simvastatin take 1 tablet Unknown 10mg Tablets by mouth at bedtime History Medications Metronidazole 1 tab by mouth 30tabs Ector Spencer 06/03/2018 - 500mg three times per Kathy Mcwilliams 06/05/2018 Tablets day Doxycycline Hyclate 1 tab by mouth 60tabs M86.271 Ector Spencer 05/17/2018 - twice a day with Kathy Mcwilliams 06/04/[address] food (on hold as of 06/04/18) Amoxicillin/Clavulana 1 tab by mouth 42tabs M86.271 Ector Gould. 05/17/2018 - te Potassium daily Kathy Mcwilliams 06/03/2018 500-125mg Tablets Clayton 1 tab by mouth q6 20tabs Adrián Louis, 04/06/2017 - 5-325mg Tablets hours as needed M.D. 05/24/2017 pain Clayton 1 tab by mouth q6 20tabs Boom Hassan 02/27/2017 - 5-325mg Tablets hours as needed MD Tobin 03/29/2017 pain Bactrim DS 1 by mouth twice 40tabs M86.671 Adrián Louis, 04/15/2015 - 800-160mg a day M.D. 07/26/2015 Tablets Colace 1 tab by mouth Unknown - 100mg Capsules daily 06/04/2018 Aspirin 1 by mouth every Unknown - [...] every Unknown - 50mg Tablets day 06/21/2018 Doxycycline Hyclate Take 1 Capsule By Unknown - Mouth Every Day 05/17/2018 100mg Capsules Lactobacillus Extra 1 cap by mouth Unknown - Strength twice a day 06/27/2018 Capsules Sevelamer Carbonate 2 tabs po three Unknown [...] Available Vital Signs Date Vital Result Comment 07/15/2018 2:04pm Height 71 inches 5'11" Weight [...] Date Facility Test Result H/L Range Note Stool Occult 07/12/2018 [facility] Stool Occult SEE RESULT 1 Blood Diag [address] Blood, [place] [address] [phone] Laboratory test 07/11/2018 [facility] Ammonia 53 mcmol/L N 16- [address] [place], [place] [id number] [phone] CBC Auto Diff 07/11/2018 [facility] Platelet Platelets High 150-[address] Count clumpe <[place] [address] NOTE> 10^3/uL [phone] Red Blood Count 2.61 10^6/uL Low 4.18-5.48 Hemoglobin 8.9 g/dL Low 14.0-18.0 Hematocrit 28 % Low 42-52 Mean Corpuscular Volume 106 fL High 80-94 3 Mean Corpuscular Hemoglobin 34 pg High 27-31 Mean Corpuscular HGB Conc 32 g/dL N 31-36 Red Cell Distribution Width 20 % High 10.5-15 4 White Blood Count 13.3 10^3/uL High 3.5-10.8 5 Comp Metabolic Panel 07/11/2018 [facility] Sodium 141 mmol/L N 135-145 [address] [place] [address] [phone] Potassium 3.4 mmol/L Low 3.5-5.0 Chloride 98 [...] Non- 8.7 >60 Egfr 10.5 >60 6 Laboratory test 07/11/2018 [facility] C Reactive 23.60 mg/L High <8.01 finding 101 [facility] [place] [address] [phone] Ferritin 1290.9 ng/mL High 24-336 Hemoglobin A1c (Glyco HGB) 5.4 % N 4.0-5.6 7 Iron & Iron Binding 07/11/2018 [facility] Iron 61 g/dL N 50- 212 [address] [place] [address] [phone] Unsaturated Iron Binding < 227 g/dL Total Iron Binding Capacity 242 g/dL Low 250-450 Transferrin 173 mg/dL Low 203-362 % Iron Saturation 25 % N 15-55 Laboratory test 07/11/2018 [facility] Vitamin B12 560 pg/mL N 180-914 8 [place] [address] [phone] Inr/Protime 07/11/2018 [facility] Inr 1.47 High 0.82-1.09 9 [address] [place] [address] [phone] Manual 07/11/2018 [facility] Neutrophil % 69.0 % Differential [address] [place] [address] [phone] Lymphocytes % 18.0 % Monocytes % 10.0 % Eosinophils % 3.0 % Abs Neutrophils 9.2 10^3/uL High 1.5-7.7 Abs Lymphocytes 2.4 10^3/uL N 1.0-4.8 Abs Monocytes 1.3 10^3/uL High 0-0.8 Abs Eosinophils 0.4 10^3/uL N 0-0.6 Macrocytosis 2+ Anisocytosis 2+ Rouleaux 2+ Laboratory test 07/11/2018 [facility] B-Type > 1300 High <= [address] Natriuretic pg/[place] [address] Peptide BNP [phone] Pathologist Review (SEE NOTE) 10 Inr/Protime 07/11/2018 [facility] Inr 1.47 High 0.82-1.[address] [place] [address] [phone] Laboratory test 06/28/2018 [facility] C Reactive 16.24 mg/L High <8.[address] [place] [address] [phone] Laboratory test 06/04/2018 [facility] C Difficile SEE RESULT [address] [place] [address] [phone] Basic Metabolic 05/10/2018 [facility] Sodium 138 mmol/L N 135- [address] [place] [address] [phone] Potassium 2.9 mmol/L Low 3.5-5.0 Chloride 92 mmol/L Low 101-111 Co2 Carbon Dioxide 36 mmol/L High 22-32 Anion Gap 10 mmol/L N 2-11 Glucose 103 mg/dL High 70-100 Blood Urea Nitrogen 15 mg/dL N 6-24 Creatinine 4.01 mg/dL High 0.67-1.17 BUN/Creatinine Ratio 3.7 Low 8-20 Calcium 9.1 mg/dL N 8.6-10.3 Egfr Non- 15.7 >60 Egfr 19.0 >60 13 Inr/Protime 05/10/2018 [facility] Inr 1.37 High 0.77-1.[address] [place] [address] [phone] CBC Auto Diff 05/10/2018 [facility] White Blood 7.3 N 3.5- 10.[address] Count 10^3/uL [place], [place] [address] [phone] Red Blood Count 2.68 10^6/uL Low 4.00-5.40 [...] Blood Cells % 0 Laboratory test 05/10/2018 [facility] Partial 33.6 N 26.0- 36.[address] [place] [address] PTT [phone] Laboratory test 03/29/2018 [facility] Tissue SEE RESULT 14 , [address] Culture & [place] [address] Sensitiv [phone] Basic Metabolic 01/09/2018 [facility] Sodium 141 mmol/L N 135- [address] [place] [address] [phone] Potassium 3.6 mmol/L N 3.5-5.0 Chloride 94 mmol/L Low 101-111 Co2 Carbon Dioxide 33 mmol/L High 22-32 Anion Gap 14 mmol/L High 2-11 Glucose 104 mg/dL High 70-100 Blood Urea Nitrogen 37 mg/dL High 6-24 Creatinine 7.57 mg/dL High 0.67-1.17 BUN/Creatinine Ratio 4.9 Low 8-20 Calcium 8.4 mg/dL Low 8.6-10.3 Egfr Non- 7.6 >60 Egfr 9.1 >60 16 Laboratory test 01/09/2018 [facility] Erythrocyte Sed 79 mm/Hr High 0-[address] [place] [address] [phone] Urinalysis 03/31/2017 [facility] Urine Color Yellow Profile [address] [place] [address] [phone] Urine Appearance Clear Urine Specific Gruver 1.014 N 1.010-1.030 Urine pH 8.0 N [...] Epithelial Cell Present Abnormal Absent Laboratory test 03/29/2017 [facility] Partial 35.9 N 26.0- 36.3 finding [address] [facility] [place] [address] PTT [phone] Inr/Protime 03/29/2017 [facility] Inr 1.21 High 0.77-1.02 [address] [place] [address] [phone] Basic Metabolic 03/29/2017 [facility] Sodium 134 mmol/L N 133- 145 Panel [address] [place] [address] [phone] Potassium 4.8 mmol/L N 3.5-5.0 Chloride 93 mmol/L Low 101-111 Co2 Carbon Dioxide 31 mmol/L N 22-32 Anion Gap 10 mmol/L N 2-11 Glucose 93 mg/dL N 70-100 Blood Urea Nitrogen 24 mg/dL N 6-24 Creatinine 3.98 mg/dL High 0.67-1.17 BUN/Creatinine Ratio 6.0 Low 8-20 Calcium 8.7 mg/dL N 8.6-10.3 Egfr Non- 15.9 >60 Egfr 20.4 >60 17 CBC Auto 03/29/2017 [facility] White Blood 12.6 10^3/uL High 3.5-10.[address] [place] [address] [phone] Red Blood Count 2.22 10^6/uL Low 4.0-5.4 [...] Red Blood Cells % 0.1 Laboratory test 08/03/2015 [facility] C Reactive < 1.00 N < 5.00 [address] Protein mg/[place] [address] [phone] CBC Auto Diff 07/06/2015 [facility] White Blood 7.4 N 3.5- 10.[address] Count 10^3/[place] [address] [phone] Red Blood Count 3.30 10^6/uL Low 4.0-5.4 [...] Cells % 0.1 N Laboratory test 07/06/2015 [facility] Erythrocyte Sed 81 mm/Hr High 0-[address] [place] [address] [phone] Laboratory test 07/06/2015 [facility] C Reactive < 1.00 N < 5.00 [address] Protein mg/[place] [address] [phone] Laboratory test 06/08/2015 [facility] Hemoglobin A1c 7.6 % High Less [address] (Glyco HGB) than 6.0 [place] [address] [phone] Laboratory test 12/24/2014 [facility] Uric Acid 5.8 mg/dL N 4.4-7.[address] [place] [address] [phone] Basic Metabolic 12/24/2014 [facility] Sodium 138 N 133-[address] mmol/[place] [address] [phone] Potassium 5.7 mmol/L High 3.5-5.0 Chloride 111 mmol/L N 101-111 Co2 Carbon Dioxide 18 mmol/L Low 22-32 Anion Gap 9 mmol/L N 2-11 Glucose 157 mg/dL High 70-100 Blood Urea Nitrogen 34 mg/dL High 6-24 Creatinine 3.08 mg/dL High 0.67-1.17 BUN/Creatinine Ratio 11.0 N 8-20 Calcium 8.3 mg/dL Low 8.6-10.3 Egfr Non- 21.6 N >60 Egfr 27.8 N >60 21 Laboratory test 02/25/2013 [facility] C Reactive 0.6 mg/dL High Less than finding [address] Protein 0.5 [place] [address] [phone] Comp Metabolic 02/25/2013 [facility] Sodium 132 mmol/L Low 133 -[address] [place] [address] [phone] Potassium 4.0 mmol/L 3.5-5.0 Chloride 104 mmol/L [...] Egfr Non- 53.9 >60 Egfr 69.3 >60 22 Wound 02/19/2013 [facility] Wound/Misc (SEE NOTE) 23 Culture/Sensi [address] [place] [address] Stain [phone] Comp Metabolic 02/11/2013 [facility] Sodium 140 mmol/L 133-[address] [place] [address] [phone] Potassium 4.1 mmol/L 3.5-5.0 Chloride 106 mmol/L [...] Egfr Non- 40.3 >60 Egfr 51.8 >60 24 Laboratory test 02/11/2013 [facility] C Reactive 0.6 mg/dL High Less than finding [address] Protein 0.5 [place] [address] [phone] Basic Metabolic 01/30/2013 [facility] Sodium 134 mmol/L 133- [address] [place] [address] [phone] Potassium 4.8 mmol/L 3.5-5.0 Chloride 102 mmol/L 101-111 Co2 Carbon Dioxide 24.0 mmol/L 22-32 Anion Gap 8.0 mmol/L 2-11 Glucose 261 mg/dL High 70-100 Blood Urea Nitrogen 29 mg/dL High 6-24 Creatinine 2.10 mg/dL High 0.50-1.40 BUN/Creatinine Ratio 13.8 8-20 Calcium 9.0 mg/dL 8.1-9.9 Egfr Non- 33.7 >60 Egfr 43.4 >60 25 CBC Auto Diff 01/30/2013 [facility] White Blood 10.3 10^3/uL 4.8-10.[address] [place] [address] [phone] Red Blood Count 3.46 10^6/uL Low 4.0-5.4 [...] Blood Cells % 0.1 Laboratory test 01/13/2013 [facility] Glucose 399 mg/dL High 70-[address] [place] [id number] [phone] 1 SEE RESULT BELOW Name: KATY SINGLETARY : [address]: Garry Javed MD Acct: [id number] Unit: [id number] AGE: 53 Location: ENDO Re07/12/18 SEX: M Status: REG REF SPEC: [id number] ANGELES: 07/12/18-[address]: Garry Javed MD REQ: [id number] RECD: 07/12/18 STATUS: COMP [facility] DR: Lety Santamaria RPA-C _ SOURCE: STOOL SPDESC: ORDERED: Occult Bl, Diag Procedure Result Reported Site Stool Occult Blood (1) Final 07/12/18- 1836 ML Stool Occult Blood Negative * ML - Main Lab . END OF REPORT DEPARTMENT OF PATHOLOGY, [address] [place] [address] Juan Deleon M.D. Director [facility] # [id number] 2 Platelets clumped. Unable to perform accurate [...] 5 Kidney failure <15 (or dialysis) 7 Therapeutic target for the treatment of diabetes mellitus patients is <7% HBA1C, and in selective patients <6.0%. Please refer to [employer] diabetic care guidelines for further information. 8 Normal Range 180 to 914 Indeterminate Range 145 to 180 Deficient Range <145 9 Standard intensity warfarin therapeutic range: 2.0-3.0 High intensity warfarin therapeutic range: 2.5-3.5 10 Leukocytosis with absolute neutrophilia suggest an acute inflammatory/reactive process. Moderate macrocytic anemia noted. Additional studies as clinically warranted. Reviewed by Dr. Deleon 11 Standard intensity warfarin therapeutic range: 2.0-3.0 High intensity warfarin therapeutic range: 2.5-3.5 12 SEE RESULT BELOW Name: KATY SINGLETARY : [address]: Ector Mcwilliams MD Acct: [id number] Unit: [id number] AGE: 53 Location: [facility] Re06/03/18 SEX: M Status: REG REF SPEC: [id number] ANGELES: 06/04/18-[address] [facility] [address]: Ector Mcwilliams MD REQ: [id number] RECD: 06/04/18 STATUS: COMP _ SOURCE: STOOL SPDESC: ORDERED: C. diff PCR, Stool Culture COMMENTS: [id number] ADDED 06/05/18 TO [id number] SPECIMEN IN CUP YELLOW TOP C S [...] CONTINUED ON NEXT PAGE DEPARTMENT OF PATHOLOGY, [address] [place] [address] Juan Deleon M.D. Director [facility] # [id number] Patient: KATY SINGLETARY [id number] (Continued) Specimen: [id number] Collected: 06/04/18 Received: 06/04/18 (Continued) Procedure Result Reported Site C. difficile PCR Final (continued) 06/04/18- 1256 * - [facility] . END OF REPORT DEPARTMENT OF PATHOLOGY, [address] [place] [address] Juan Deleon M.D. Director [facility] # [id number] 13 Because ethnic data is not always [...] 5 Kidney failure <15 (or dialysis) 14 RIGHT FOOT 15 SEE RESULT BELOW Name: KATY SINGLETARY : [address]: Amparo Landis [facility] [place] Acct: [id number] Unit: [id number] AGE: 53 Location: WOUND Re03/29/18 SEX: M Status: REG REF SPEC: [id number] ANGELES: 03/29/18141 [facility] DR: Amparo Landis NP REQ: [id number] RECD: 03/29/18 STATUS: ROM OZUNA DR: Lety Santamaria MERGED WITH [facility] _ SOURCE: TISSUE SPDESC:RIGHT ORDERED: Tissue [...] CONTINUED ON NEXT PAGE DEPARTMENT OF PATHOLOGY, [address] [place] [address] Juan Deleon M.D. Director [facility] # [id number] Patient: KATY SINGLETARY [id number] (Continued) Specimen: [id number] Collected: 03/29/18-1412 Received: 03/29/18535 (Continued) Procedure Result Reported Site Tissue Culture [...] . END OF REPORT DEPARTMENT OF PATHOLOGY, [address] [place] [address] Juan Deleon M.D. Director [facility] # [id number] 16 Because ethnic data is not always readily [...] 15-29 5 Kidney failure <15 (or dialysis) 17 Because ethnic data is not always [...] 5 Kidney failure <15 (or dialysis) 18 Acute inflammation: >10.00 19 Acute inflammation: >10.00 20 Therapeutic target for the treatment of diabetes Mellitus patients is <7% HBA1C, and in selective patients <6.0%.Please refer to [employer] Diabetic care guidelines for further information. 21 Because ethnic data is not always readily [...] 15-29 5 Kidney failure <15 (or dialysis) 22 Because ethnic data is not always [...] 5 Kidney failure <15 (or dialysis) 23 RUN DATE: 02/21/13 [facility] LAB LIVE PAGE 1 RUN TIME: [address] [place] [address] Specimen Inquiry Name: KATY SINGLETARY : [address]: Mono Marcelino Acct: [id number] Unit: [id number] AGE: 48 Location: WOUND Re02/21/13 SEX: M Status: REG RCR SPEC: [id number] ANGELES: 02/19/[address]: Mono Marcelino DPM REQ: [id number] RECD: 02/19/13 STATUS: ROM OZUNA DR: Ector Glasgow MD _ SOURCE: TOE SPDESC:RIGHT ORDERED: Culture Stain Procedure Result Verified Site Wound/Misc Gram Stain Final 02/19/13- 1422 ML No Polys Observed No Organisms Seen Wound/Misc Culture Final 02/21/13- 1112 ML Organism 1 NORMAL KEVIN Quantity 1+ END OF REPORT * ML=Testing performed at Main Lab DEPARTMENT OF PATHOLOGY, [address] [place] [address] Juan Deleon M.D. Director [facility] Permit #[id number] 24 Because ethnic data is not always readily [...] 15-29 5 Kidney failure <15 (or dialysis) 25 Because ethnic data is not always [...] (or dialysis) Procedures Date Code Description Status 07/11/2018 11461 Removal Devitalization Tissue Wound Less Than Equal 20 Completed Square CM 07/01/2018 23286 ECHO Transthorasic Realtime 2D W Doppler & Color Flow Hosp Completed 05/31/2018 80638 Removal Devitalization Tissue Wound Less Than Equal 20 Completed Square CM 05/17/2018 80942 I&D Of Abscess Complicated Completed 05/10/2018 00769 Moderate Sedation Services; Same Phys Each Additional 15 Completed Mins 05/10/2018 19007 Moderate Sedation Services; Same Phys Intl 15 Mins; PT >=5 Completed Years 05/10/2018 91127 Ultrasound Guidance For Vascular Access Completed 05/10/2018 61601 Dialysis Circuit W/ Transluminal Balloon Angioplasty, Completed Peripheral 04/12/2018 67546 Chemical Cautery Granulation Tissue Completed 04/05/2018 62594 Apply Total Contact Leg Cast Completed 03/29/2018 98304 Debridement Skin,& sq Tissue Completed 03/22/2018 85165 Apply Total Contact Leg Cast Completed 03/15/2018 37849 Removal Devitalization Tissue Wound Less Than Equal 20 Completed Square CM 03/01/2018 96188 Apply Total Contact Leg Cast Completed 02/21/2018 58589 Removal Devitalization Tissue Wound Less Than Equal 20 Completed Square CM 02/15/2018 46316 Apply Total Contact Leg Cast Completed 02/08/2018 49732 Apply Total Contact Leg Cast Completed 01/18/2018 79586 Apply Total Contact Leg Cast Completed 01/11/2018 05971 Apply Total Contact Leg Cast Completed 01/04/2018 81166 Debridement Skin,& sq Tissue Completed 12/03/2017 85468 Removal Of Tunneled Central Venous Cath W/O Subcutaneous Completed 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 05/10/2017 91098 Amputation Foot Midtarsal Completed 05/10/2017 71519 Amputation Foot Midtarsal Completed 05/10/2017 72043 Transfer Tendon Leg Or Ankle Superficial Completed 05/10/2017 81031 Transfer Tendon Leg Or Ankle Superficial Completed 05/10/2017 63634 Tenotomy Achilles Tendon General Anesthesia Completed 04/23/2017 22441 EKG, Interpretation Only Completed 03/30/2017 28159 EKG Tracing & Interpretation Completed 03/28/2017 15928 Rad Exam; Foot Comp Completed 03/02/2017 95232 Short Leg Cast Completed 02/19/2017 74237 Amputation Foot Transmetatarsal Completed 02/19/2017 17796 Amputation Foot Transmetatarsal Completed 01/31/2017 10887 Treadmill Interp/Report Only Completed 01/31/2017 90184 Stress Test Supervsn W/Out I/R Completed 01/30/2017 97571 ECHO Transthorasic Realtime 2D W Doppler & Color Flow Hosp Completed 01/23/2017 27251 Fluoroscopic Guidance For Cent Completed 01/23/2017 29816 Insertion Tunneled Cent Venous Cathr W/O Subcut Port/Pump Completed 5Yrs> 01/21/2017 98966 EKG, Interpretation Only Completed 01/19/2017 29658 EKG, Interpretation Only Completed 01/19/2017 42060 Insert Non-Tunneled Venous Catether Completed 08/19/2015 75835 Apply Total Contact Leg Cast Completed 08/10/2015 38713 Removal Devitalization Tissue Wound Less Than Equal 20 Completed Square CM 08/03/2015 23704 Removal Devitalization Tissue Wound Less Than Equal 20 Completed Square CM 07/27/2015 77144 Removal Devitalization Tissue Wound Less Than Equal 20 Completed Square CM 07/20/2015 97924 Removal Devitalization Tissue Wound Less Than Equal 20 Completed Square CM 07/13/2015 51707 Removal Devitalization Tissue Wound Less Than Equal 20 Completed Square CM 07/06/2015 00179 Removal Devitalization Tissue Wound Less Than Equal 20 Completed Square CM 06/29/2015 77524 Removal Devitalization Tissue Wound Less Than Equal 20 Completed Square CM 06/22/2015 94799 Removal Devitalization Tissue Wound Less Than Equal 20 Completed Square CM 06/15/2015 37473 Removal Devitalization Tissue Wound Less Than Equal 20 Completed Square CM 06/08/2015 89320 Removal Devitalization Tissue Wound Less Than Equal 20 Completed Square CM 06/01/2015 94015 Removal Devitalization Tissue Wound Less Than Equal 20 Completed Square CM 05/25/2015 38597 Removal Devitalization Tissue Wound Less Than Equal 20 Completed Square CM 05/18/2015 27400 Removal Devitalization Tissue Wound Less Than Equal 20 Completed Square CM 05/11/2015 23530 Removal Devitalization Tissue Wound Less Than Equal 20 Completed Square 05/04/2015 54594 Removal Devitalization Tissue Wound Less Than Equal 20 Completed Square 12/29/2014 20366 Short Leg Cast Completed 12/17/2014 16097 Amputation Foot Transmetatarsal Completed 12/17/2014 40381 Amputation Foot Transmetatarsal Completed 01/14/2013 04869 EKG, Interpretation Only Completed Encounters Type Date Location Provider Dx Diagnosis Office Visit 07/08/2018 [facility] Garry Abraham E11.52 Type 2 diabetes w 2:15p MD Tello diabetic peripheral angiopathy w gangrene N18.6 End stage renal disease I10 Essential (primary) hypertension K72.90 Hepatic failure, unspecified without coma M86.271 Subacute osteomyelitis, right ankle and foot Office Visit 07/03/2018 2:08p [facility] Beth Clemons, R55 Syncope and Of Studio Technician M.DJoey collapse R41.82 Altered mental status, unspecified I35.0 Nonrheumatic aortic (valve) stenosis 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 N18.6 End stage renal disease Z99.2 Dependence on renal dialysis E87.6 Hypokalemia I42.9 Cardiomyopathy, unspecified I10 Essential (primary) hypertension Office Visit 06/28/2018 [facility] Josy Mosquera M86.9 Osteomyelitis , 11:00a For Infectious [place], [facility] [place] unspecified Diseases R94.5 Abnormal results of liver function studies E11.621 Type 2 diabetes mellitus with foot ulcer L97.519 Non-prs chronic ulcer oth prt right foot w unsp severity E11.69 Type 2 diabetes mellitus with other specified complication Office Visit 06/17/2018 [facility] M86.271 Subacute 2:11p Services Of VANDANA Doss osteomyelitis, right C.M.A. ankle and foot Office Visit 06/17/2018 [facility] Ector Spencer B17.9 Acute viral 10:41a For Infectious [place], hepatitis, Diseases M.D. unspecified E11.69 Type 2 diabetes mellitus with other specified complication M86.9 Osteomyelitis, unspecified E11.22 Type 2 diabetes mellitus w diabetic chronic kidney disease N18.6 End stage renal disease Office Visit 06/17/2018 8:45a [facility] Darrick Esposito R94.5 Abnormal Assoc,manuel Paul MD results of Hospitalists liver function studies G93.40 Encephalopathy, unspecified M86.679 Other chronic osteomyelitis, unspecified ankle and foot N18.6 End stage renal disease Z99.2 Dependence on renal dialysis [facility] K[facility].00 Acute and Assoc,manuel Palu MD subacute Hospitalists hepatic failure without coma G93.41 Metabolic encephalopathy R94.5 Abnormal results of liver function studies M86.671 Other chronic osteomyelitis, right ankle and foot D69.6 Thrombocytopenia, unspecified N18.6 End stage renal disease R19.7 Diarrhea, unspecified Z99.2 Dependence on renal dialysis Office [facility]15[facility]2018 [facility] K[facility].00 Acute and Assoc,manuel Paul MD subacute Hospitalists hepatic failure without coma G93.41 Metabolic encephalopathy E87.8 Oth disorders of electrolyte and fluid balance, NEC M86.671 Other chronic osteomyelitis, right ankle and foot D69.6 Thrombocytopenia, unspecified N18.6 End stage renal disease R19.7 Diarrhea, unspecified R94.5 Abnormal results of liver function studies Office Visit 06/14/2018 9:48a [facility] Ector Spencer B17.9 Acute viral Infectious Kathy Mcwilliams hepatitis, Diseases unspecified E11.22 Type 2 diabetes mellitus w diabetic chronic kidney disease N18.6 End stage renal disease E11.69 Type 2 diabetes mellitus with other specified complication M86.9 Osteomyelitis, unspecified Office Visit 06/14/2018 [facility] M86.671 Other chronic 8:44a manuel Sosa M.D. osteomyelitis, Hospitalists right ankle and foot D69.6 Thrombocytopenia, unspecified K72.00 Acute and subacute hepatic failure without coma G93.41 Metabolic encephalopathy R19.7 Diarrhea, unspecified N18.6 End stage renal disease Z99.2 Dependence on renal dialysis Office Visit 06/13/2018 [facility] M86.271 Subacute 8:43a manuel Sosa M.D. osteomyelitis, Hospitalists right ankle and foot E11.621 Type 2 diabetes mellitus with foot ulcer L97.519 Non-prs chronic ulcer oth prt right foot w unsp severity K72.00 Acute and subacute hepatic failure without coma G93.41 Metabolic encephalopathy N18.6 End stage renal disease Z99.2 Dependence on renal dialysis R19.7 Diarrhea, unspecified Office Visit 06/13/2018 9:47a [facility] [place] Spencer B17.9 Acute viral Infectious Kathy Mcwilliams hepatitis, Diseases unspecified E11.22 Type 2 diabetes mellitus w diabetic chronic kidney disease N18.6 End stage renal disease Office Visit 06/12/2018 [facility] M86.271 Subacute 8:43a manuel Sosa M.D. osteomyelitis, Hospitalists right ankle and foot G93.41 Metabolic encephalopathy R19.7 Diarrhea, unspecified N18.6 End stage renal disease Z99.2 Dependence on renal dialysis Office Visit 06/11/2018 8:42a [facility] Angela, K72.00 Acute and manuel Sosa M.D. 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D. subacute Hospitalists hepatic failure without coma I12.0 Hyp chr kidney disease w stage 5 chr kidney disease or Esrd Z99.2 Dependence on renal dialysis R50.9 Fever, unspecified R79.89 Other specified abnormal findings of blood chemistry R41.82 Altered mental status, unspecified R19.7 Diarrhea, unspecified Office Visit 06/08/2018 8:41a [facility] K72.00 Acute and Assoc,manuel Mcghee M.D. subacute Hospitalists hepatic failure without coma R50.9 Fever, unspecified I12.0 Hyp chr kidney disease w stage 5 chr kidney disease or Esrd N18.6 End stage renal disease Z99.2 Dependence on renal dialysis R79.89 Other specified abnormal findings of blood chemistry R41.82 Altered mental status, unspecified R19.7 Diarrhea, unspecified Office Visit 06/07/2018 8:40a [facility] K72.00 Acute and Assoc,manuel Mcghee M.D. subacute Hospitalists hepatic failure without coma R50.9 Fever, unspecified I12.0 Hyp chr kidney disease w stage 5 chr kidney disease or Esrd Z99.2 Dependence on renal dialysis N18.6 End stage renal disease R41.82 Altered mental status, unspecified Office Visit 06/07/2018 10:45a [facility] Fitz Leon, L89.893 Pressure ulcer Center AT [facility] , FACS of other site, stage 3 E11.621 Type 2 diabetes mellitus with foot ulcer M86.271 Subacute osteomyelitis, right ankle and foot I73.9 Peripheral vascular disease, unspecified N18.6 End stage renal disease R09.89 Oth symptoms and signs involving the circ and resp systems M21.6x1 Other acquired deformities of right foot Office Visit 05/31/2018 [facility] Ector Sepncer M86.271 Subacute 10:50a For Infectious Kathy Mcwilliams osteomyelitis, Diseases right ankle and foot E11.40 Type 2 diabetes mellitus with diabetic neuropathy, unsp R19.7 Diarrhea, unspecified T36.0x5A Adverse effect of penicillins, initial encounter Office Visit 05/24/2018 10:45a Wound Care Loc Casas89Syeda Pressure ulcer Center AT [facility] , FACS of other site, stage 3 E11.621 Type 2 diabetes mellitus with foot ulcer M86.271 Subacute osteomyelitis, right ankle and foot I73.9 Peripheral vascular disease, unspecified N18.6 End stage renal disease R09.89 Oth symptoms and signs involving the circ and resp systems M21.6x1 Other acquired deformities of right foot Office Visit 05/17/2018 [facility] Ector Spencer M86.271 Subacute 10:50a For [...] Care Cordell Casas Pressure ulcer Center AT [facility] , FACS of other site, stage 3 E11.621 Type 2 diabetes mellitus with foot ulcer M86.271 Subacute osteomyelitis, right ankle and foot I73.9 Peripheral vascular disease, unspecified N18.6 End stage renal disease R09.89 Oth symptoms and signs involving the circ and resp systems M21.6x1 Other acquired deformities of right foot Office Visit 04/26/2018 11:00a Wound Care Cordell Casas Pressure ulcer Center AT [facility] MD FACS of other site, stage 3 E11.621 Type 2 diabetes mellitus with foot ulcer I73.9 Peripheral vascular disease, unspecified N18.6 End stage renal disease R09.89 Ot symptoms and signs involving the circ and resp systems M21.6x1 Other acquired deformities of right foot Office Visit 01/04/2018 [facility] Fitz Bermudez E11.621 Type 2 diabetes 8:00a AT [facility] MD Carolyn, mellitus with FACS foot ulcer Office Visit 05/18/2017 Nadya Sampson J96.01 Acute respiratory 8:39a Assocamnuel M.D. failure with Hospitalists hypoxia S91.302A Unspecified open wound, left foot, initial encounter E11.8 Type 2 diabetes mellitus with unspecified complications I10 Essential (primary) hypertension Office Visit 05/17/2017 8:37a Nadya Page96.01 Acute respiratory Assocmanuel M.D. failure with Hospitalists hypoxia S91.302A Unspecified open wound, left foot, initial encounter E11.8 Type 2 diabetes mellitus with unspecified complications I10 Essential (primary) hypertension Office Visit 05/16/2017 8:34a Nadya Page96.01 Acute respiratory Assocmanuel M.D. failure with Hospitalists hypoxia S91.302A Unspecified open wound, left foot, initial encounter E11.8 Type 2 diabetes mellitus with unspecified complications I10 Essential (primary) hypertension Office Visit 05/15/2017 8:33a Nadya Page96.01 Acute respiratory Assmanuel alvarez M.D. failure with Hospitalists hypoxia S91.302A Unspecified open wound, left foot, initial encounter E11.8 Type 2 diabetes mellitus with unspecified complications I10 Essential (primary) hypertension Office Visit 05/14/2017 Camilo Simpson96.01 Acute respiratory 8:32a manuel Sosa M.D. failure with Hospitalists hypoxia S91.302A Unspecified open wound, left foot, initial encounter E11.8 Type 2 diabetes mellitus with unspecified complications I10 Essential (primary) hypertension Office Visit 05/13/2017 Camilo Simpson96.01 Acute respiratory 8:24a manuel Sosa M.D. failure with Hospitalists hypoxia S91.302A Unspecified open wound, left foot, initial encounter E11.8 Type 2 diabetes mellitus with unspecified complications I10 Essential (primary) hypertension Office Visit 05/12/2017 Nadya Fraga Angela, J96.01 Acute respiratory 8:21a manuel Sosa M.D. failure with Hospitalists hypoxia S91.302A Unspecified open wound, left foot, initial encounter E11.8 Type 2 diabetes mellitus with unspecified complications I10 Essential (primary) hypertension [facility] J96.01 Acute respiratory 8:20a manuel Sosa M.D. failure with Hospitalists hypoxia S91.302A Unspecified open wound, left foot, initial encounter E11.8 Type 2 diabetes mellitus with unspecified complications I10 Essential (primary) hypertension Office Visit [facility]/10/2017 [facility], J96.01 Acute respiratory 8:19a manuel Sosa [...] left ankle and foot Office Visit 05/09/2017 [facility] Chema Dukes, J96.01 Acute respiratory 8:18a manuel Sosa MD failure with Hospitalists hypoxia S91.302A Unspecified open wound, left foot, initial encounter E11.8 Type 2 diabetes mellitus with unspecified complications I10 Essential (primary) hypertension Office Visit 05/08/2017 8:08a [facility] Chema Dukes, J96.01 Acute respiratory Assmanuel alvarez MD failure with Hospitalists hypoxia S91.302A Unspecified open wound, left foot, initial encounter E11.8 Type 2 diabetes mellitus with unspecified complications I10 Essential (primary) hypertension Office Visit 05/07/2017 7:56a [facility] Chema Dukes J96.01 Acute respiratory Assmanuel alvarez MD failure with Hospitalists hypoxia S91.302A Unspecified open wound, left foot, initial encounter E11.8 Type 2 diabetes mellitus with unspecified complications I10 Essential (primary) hypertension [facility] J96.01 Acute respiratory 10:09a manuel Sosa M.D. failure with Hospitalists hypoxia S91.302A Unspecified open wound, left foot, initial encounter E11.8 Type 2 diabetes mellitus with unspecified complications I10 Essential (primary) hypertension Office Visit 04/24/2017 [facility], J96.01 Acute respiratory 10:08a manuel Sosa M.D. failure with Hospitalists hypoxia S91.302A Unspecified open wound, left foot, initial encounter E11.8 Type 2 diabetes mellitus with unspecified complications I10 Essential (primary) hypertension Office Visit 04/23/2017 [facility] Josy Rubiobertramrogerluzmaria J96.01 Acute 10:06a manuel Sosa, REPAIR [place]ERAM[employer] respiratory Hospitalists failure with hypoxia S91.302A Unspecified open wound, left foot, initial encounter E11.8 Type 2 diabetes mellitus with unspecified complications I10 Essential (primary) hypertension Office Visit 03/30/2017 2:30p Cardiology William Hidalgo I34.0 Nonrheumatic mitral Services Of Real Chavez M.D., (valve) AT [facility], FASNC insufficiency I10 Essential (primary) hypertension Z01.810 Encounter for preprocedural cardiovascular examination M86.672 Other chronic osteomyelitis, left ankle and foot Office Visit 02/21/2017 7:22a [facility] [place] S. E11.621 Type 2 Assantonio,manuel Pierre, N.P. diabetes Hospitalists mellitus with foot ulcer N18.6 End stage renal disease E11.8 Type 2 diabetes mellitus with unspecified complications I10 Essential (primary) hypertension Office Visit 02/21/2017 [facility] Ector Spencer E10.69 Type 1 diabetes 2:05p For Infectious Kathy Mcwilliams mellitus with Diseases other specified complication E10.52 Type 1 diabetes w diabetic peripheral angiopathy w gangrene M86.672 Other chronic osteomyelitis, left ankle and foot Z89.422 Acquired absence of other left toe(s) Office Visit 02/20/2017 7:21a [facility] [place] S. E11.621 Type 2 Assantonio,manuel Pierre, N.P. diabetes Hospitalists mellitus with foot ulcer E11.8 Type 2 diabetes mellitus with unspecified complications N18.6 End stage renal disease I10 Essential (primary) hypertension Office Visit 02/19/2017 7:21a [facility] [place] LairdJoey N18.6 End stage Assoc,manuel Pierre N.P. renal disease Hospitalists E11.621 Type 2 diabetes mellitus with foot ulcer E11.8 Type 2 diabetes mellitus with unspecified complications I10 Essential (primary) hypertension Office Visit 02/18/2017 9:37a Orthopedic Adrián Louis, I96 Gangrene, not Services Of Isabel Chavez elsewhere classified Office Visit 02/18/2017 7:20a [facility] Philly Miller, N18.6 End stage renal Assoc,manuel Chavez disease Hospitalists E11.621 Type 2 diabetes mellitus with foot ulcer E11.8 Type 2 diabetes mellitus with unspecified complications I10 Essential (primary) hypertension Office Visit 02/17/2017 7:19a [facility] Julius Avila, N18.6 End stage Assoc,manuel N.Aidan renal disease Hospitalists E11.621 Type 2 diabetes mellitus with foot ulcer E11.8 Type 2 diabetes mellitus with unspecified complications I10 Essential (primary) hypertension Office Visit 01/30/2017 7:34a [facility] Taryn R07.9 Chest pain, Assoc,manuel Monaco M.D. unspecified Hospitalists I50.9 Heart failure, unspecified N18.6 End stage renal disease Z99.2 Dependence on renal dialysis Office Visit 2017 8:03a [facility] Adrián N17.9 Acute kidney Assoc,manuel Rawls M.D. failure, Hospitalists unspecified E87.5 Hyperkalemia N18.5 Chronic kidney disease, stage 5 E83.39 Other disorders of phosphorus metabolism Office Visit 01/23/2017 8:02a [facility] Adrián N17.9 Acute kidney Assoc,manuel Rawls M.D. failure, Hospitalists unspecified E87.5 Hyperkalemia E83.39 Other disorders of phosphorus metabolism N18.5 Chronic kidney disease, stage 5 Office Visit 01/22/2017 8:00a [facility] Adrián N17.9 Acute kidney Assoc,manuel Rawls M.D. failure, Hospitalists unspecified E87.5 Hyperkalemia E83.39 Other disorders of phosphorus metabolism N18.5 Chronic kidney disease, stage 5 Office Visit 01/21/2017 7:51a [facility] Adrián N17.9 Acute kidney Assoc,manuel Rawls M.D. failure, Hospitalists unspecified E87.5 Hyperkalemia E83.39 Other disorders of phosphorus metabolism N18.5 Chronic kidney disease, stage 5 Office Visit 01/20/2017 7:50a [facility] Adrián N17.9 Acute kidney Assoc,manuel Rawls M.D. failure, Hospitalists unspecified N18.5 Chronic kidney disease, stage 5 E87.5 Hyperkalemia E83.39 Other disorders of phosphorus metabolism Office Visit 01/19/2017 [facility] Nitin Anuja N17.9 Acute kidney 7:47a Assoc,manuel MONSIVAIS M.D. failure, Hospitalists unspecified E87.5 Hyperkalemia N18.5 Chronic kidney disease, stage 5 E83.39 Other disorders of phosphorus metabolism Office Visit 08/26/2015 11:34a Wound Care Simba Chapa M10.079 Idiopathic gout , Center AT [facility] Kathy Phillip unspecified ankle and foot E11.621 Type 2 diabetes mellitus with foot ulcer M86.671 Other chronic osteomyelitis, right ankle and foot L97.411 Non-prs chr ulcer of right heel and midft [facility] skin Office Visit 08/17/2015 2:24p Wound Hector Chapa M10.079 Idiopathic gout , Center AT [facility] Kathy Phillip unspecified ankle and foot E11.621 Type 2 diabetes mellitus with foot ulcer M86.671 Other chronic osteomyelitis, right ankle and foot Office Visit 08/10/2015 10:50a Cyrus Lynn Spencer Z89.421 Acquired Infectious Kathy Mcwilliams absence of Diseases other right toe(s) L97.519 Non-prs chronic ulcer oth prt right foot w unsp severity Office Visit 07/27/2015 9:30a Cyrus Lynn Spencer Z89.421 Acquired Infectious Kathy Mcwilliams absence of Diseases other right toe(s) E11.621 Type 2 diabetes mellitus with foot ulcer L97.519 Non-prs chronic ulcer oth prt right foot w unsp severity Office Visit 06/10/2015 10:29a Wound Care Simba Chapa E11.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 ankle and foot Office Visit 04/28/2015 Orthopedic Adrián Quevedo86.67Rayo Other chronic 2:50p Services Of Kathy Louis osteomyelitis, right C.M.A. ankle and foot Office Visit 04/15/2015 Orthopedic Adrián Quevedo86.671 Other chronic 11:15a Services Of Kathy Loius osteomyelitis, right C.M.A. ankle and foot Office Visit 01/11/2015 [facility] Ector Quevedo86.671 Other chronic 3:00p For Infectious [place], osteomyelitis, right Diseases M.D. 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 failure, Hospitalists unspecified M86.9 Osteomyelitis, unspecified A41.9 Sepsis, unspecified organism E13.9 Other specified diabetes mellitus without complications Office Visit 12/20/2014 [facility] M86.9 Osteomyelitis, 12:12p Assmanuel alvarez M.D. unspecified Hospitalists A41.9 Sepsis, unspecified organism N17.9 Acute kidney failure, unspecified E13.9 Other specified diabetes mellitus without complications [facility]omyelitis, 12:12p Assocmanuel M.D. unspecified Hospitalists A41.9 Sepsis, unspecified organism N17.9 Acute kidney failure, unspecified E13.9 Other specified diabetes mellitus without complications Office Visit 12/18/2014 [facility], N17.9 Acute kidney 12:11p Assmanuel alvarez M.D. failure, Hospitalists unspecified M76.9 Unspecified enthesopathy, lower limb, excluding foot A41.9 Sepsis, unspecified organism E13.9 Other specified diabetes mellitus without complications Office Visit 12/17/2014 7:52a [facility] Ector Spencer E11.52 Type 2 [...] disease, stage 3 (moderate) Office Visit 12/17/2014 [facility] Phil[place] M86.9 Osteomyelitis, 12:10p Assoc,manuel Miller M.D. unspecified Hospitalists A41.9 Sepsis, unspecified organism N17.9 Acute kidney failure, unspecified E13.9 Other specified diabetes mellitus without complications Office Visit 12/16/2014 [facility] [place] SisiJoey M86.9 Osteomyelitis, 12:08p Assoc,manuel Pierre, N.P. unspecified Hospitalists A41.9 Sepsis, unspecified organism N17.9 Acute kidney failure, unspecified E13.9 Other specified diabetes mellitus without complications Office Visit 12/16/2014 Orthopedic Dara Vergara, M86.9 Osteomyelitis, 7:00a Services Of Kathy unspecified C.M.A. Office Visit 03/18/2013 [facility] Ector Spencer 681.10 Cellulitis & Abscess 9:30a For Infectious [place], Toe Unspec Diseases M.D. Office Visit 02/25/2013 [facility] Ector Spencer 730.00 Osteomyelitis Acute 9:30a For Infectious [place], Site Unspec Diseases Kathy 681.10 Cellulitis & Abscess Toe Unspec Office Visit 02/04/2013 [facility] Ector Spencer 730.00 Osteomyelitis Acute 9:30a For Infectious [place] M.D. Site Unspec Diseases 588.9 Renal Function Impairment Disorders Unspec Office Visit 2013 11:06a [facility] Taryn 681.10 Cellulitis & Assoc,manuel Monaco M.D. Abscess Toe Hospitalists Unspec 730.00 Osteomyelitis Acute Site Unspec 250.02 Diabetes Mellitus W/O Compl Type II Or Unspec Type Uncontrol 584.5 Acute Kidney Failure With Lesion Of Tubular Necrosis Office Visit 01/23/2013 11:06a [facility] Taryn 681.10 Cellulitis & Assocmanuel M.D. Abscess Toe Hospitalists Unspec 250.02 Diabetes Mellitus W/O Compl Type II Or Unspec Type Uncontrol 584.5 Acute Kidney Failure With Lesion Of Tubular Necrosis Office Visit 01/22/2013 [facility] Cellulitis & Assoc,manuel Monaco M.D. Abscess Toe Hospitalists Unspec 250.02 Diabetes Mellitus W/O Compl Type II Or Unspec Type Uncontrol 584.5 Acute Kidney Failure With Lesion Of Tubular Necrosis Office Visit 01/21/2013 11:05a [facility] Taryn 681.10 Cellulitis & Assmanuel alvarez M.D. Abscess Toe Hospitalists Unspec 250.02 Diabetes Mellitus W/O Compl Type II Or Unspec Type Uncontrol [facility] 730.27 Osteomyelitis 9:16a Gregorio Mcwilliams M.D. Unspec Ankle & Diseases Foot Office Visit [facility]/20[facility]2013 [facility] 681.10 Cellulitis & 11:05a Assmanuel alvarez M.D. Abscess Toe Unspec Hospitalists 250.02 Diabetes Mellitus W/O Compl Type II Or Unspec Type Uncontrol 584.5 Acute Kidney Failure With Lesion Of Tubular Necrosis Office Visit 01/19/2013 [facility] Miller 681.10 Cellulitis & 11:05a manuel Sosa M.D. Abscess Toe Hospitalists Unspec 250.02 Diabetes Mellitus W/O Compl Type II Or Unspec Type Uncontrol 584.5 Acute Kidney Failure With Lesion Of Tubular Necrosis Office Visit 01/18/2013 [facility] 681.10 Cellulitis & 11:04a manuel Sosa M.D. Abscess Toe Hospitalists Unspec 250.02 Diabetes Mellitus W/O Compl Type II Or Unspec Type Uncontrol 584.5 Acute Kidney Failure With Lesion Of Tubular Necrosis Office Visit 01/17/2013 11:04a [facility] [place] Tsang 681.10 Cellulitis & Assoc,manuel Pierre N.PJoey Abscess Toe Hospitalists Unspec 250.02 Diabetes Mellitus W/O Compl Type II Or Unspec Type Uncontrol 584.5 Acute Kidney Failure With Lesion Of Tubular Necrosis Office Visit 01/16/2013 [facility] Ector Spencer 730.27 Osteomyelitis 2:16p Gregorio Mcwilliams M.D. Unspec Ankle & Diseases Foot Office Visit 01/16/2013 [facility] 584.5 Acute Kidney 11:04a manuel Sosa M.D. Failure With Hospitalists Lesion Of Tubular Necrosis 681.10 Cellulitis & Abscess Toe Unspec 250.02 Diabetes Mellitus W/O Compl Type II Or Unspec Type Uncontrol Office Visit 01/15/2013 11:03a [facility] Angela 584.5 Acute Kidney manuel Sosa M.D. Failure With Hospitalists Lesion Of Tubular Necrosis 681.10 Cellulitis & Abscess Toe Unspec 250.02 Diabetes Mellitus W/O Compl Type II Or Unspec Type Uncontrol 995.92 Severe Sepsis Office Visit 01/15/2013 [facility] [place] 730.27 Osteomyelitis 12:10p Gregorio Mcwilliams M.D. Unspec Ankle & Diseases Foot Office Visit 01/14/2013 [facility] 995.92 Severe Sepsis 11:03a manuel Sosa M.D. Hospitalists 681.10 Cellulitis & Abscess Toe Unspec 250.02 Diabetes Mellitus W/O Compl Type II Or Unspec Type Uncontrol 584.5 Acute Kidney Failure With Lesion Of Tubular Necrosis Office Visit [facility]/13[facility] Severe Sepsis Assmanuel alvarez M.D. Hospitalists 681.10 Cellulitis & Abscess Toe Unspec 250.02 Diabetes Mellitus W/O Compl Type II Or Unspec Type Uncontrol 584.5 Acute Kidney Failure With Lesion Of Tubular Necrosis Office Visit 06/06/2009 [facility] 250[facility] Diabetes Assmanuel alvarez M.D. Mellitus W/O Hospitalists Compl Type II Or Unspec Controlled 730.20 Osteomyelitis Unspec Site Unspec 401.9 Hypertension Unspec Office Visit 06/05/2009 12:15a [facility] 250.00 Diabetes Assmanuel alvarez M.D. Mellitus W/O Hospitalists Compl Type II Or Unspec Controlled Office Visit 06/04/2009 12:15a [facility] 250.00 Diabetes Assmanuel alvarez M.D. Mellitus W/O Hospitalists Compl Type II Or Unspec Controlled 593.9 Kidney & Ureter Disorders Unspec Office Visit 06/02/2009 [facility], 730.20 Osteomyelitis 12:15a manuel Sosa M.D. Unspec Site Unspec Hospitalists 250.00 Diabetes Mellitus W/O Compl Type II Or Unspec Controlled Office Visit 06/01/2009 [facility], 730.20 Osteomyelitis 12:15a manuel Sosa M.D. Unspec Site Unspec Hospitalists Office Visit 05/31/2009 [facility], 730.20 Osteomyelitis 4:00a manuel Sosa M.D. Unspec Site Unspec Hospitalists Plan of Treatment Future Appointment(s):07/30/2018 11:30 am - Adrián Louis M.D. at [facility]07/24/2018 1:00 pm - Josy Redding NP at [facility] Tojfkhba72/08/2019 11:30 am - William Chavez M.D., FACC , FASMD at [facility]07/15/2018 - Bradley Dyson MDE11.621 Type 2 diabetes mellitus with foot ulcerFollow up:Follow Up: [address] oLuis
--- OUTSIDE RECORDS SUMMARY | 2018-08-07 12:11 | XMS REPORT | Continuity of Care Document ---
:1965 External Reference #:[id number] Author Name Ta Baxter D.O. Address [address] [place] [id number] Care Team Providers Name Role Phone HCP given Primary Care Physician Unavailable Payers Date Identification Numbers Payment Provider Subscriber Effective: Policy Number: Zia Singletary 2017 [id number] Ind/Ppo/Hmo/Pos PayID: [id number] [address] [address] [place] [address] Effective: 1999 Policy Number: [facility] Katy Singletary [id number] PayID: [id number] [address] [place] [address] Advance Directives Description No Information Available Problems [...] History Date Family Member(s) Observation Comments Father [place] Mother due to Liver Cancer () Paternal Grandmother Diabetes, Nos Maternal Grandfather Heart Disease Maternal Grandfather due to Heart Disease () Maternal Uncles due to CAD () Social History Type Date Description Comments Sex Unknown Education High School Completed Marital Status 12/2016 Lives With Alone Has daughter, but she is working on her Masters' degree, down in [place], [place]. Occupation [employer] Work Status Not Currently Working disability 2017 Years Employed over 30 years 20 years spent working at [email or web address] 06/06/2018 Right-handed Tobacco Use Start: Unknown Denies [...] 07/01/2018 Metoprolol Tartrate 1 tablet by mouth lAex, 04/12/2018 - twice daily MD Katy 07/05/2018 [...] by Unknown 04/25/2017 - 325mg Tablets mouth [id number] as 06/17/2018 needed for pain otc Azithromycin [...] CPT Code Status Date Vaccine Lot # [id number] Given 06/06/2018 Shingrix Zoster (Shingles) Vaccine (HZV) [id number] Recomb,Subnit,Adjuvanted [id number] Given 06/06/2018 Prevnar 13 [id number] Given 12/19/2017 Shingrix Zoster (Shingles) Vaccine (HZV) [id number] Recomb,Subnit,Adjuvanted 60503 Given 12/19/2017 Adacel or Boostrix, TDaP [id number] Vital Signs Date Vital Result Comment 07/09/2018 [...] Date Facility Test Result H/L Range Note Venous Blood Gas 07/01/2018 [facility] Venous Blood pH 7.47 High 7.32 -7.43 [phone] Venous Pco2 53 mmHg High 41-51 Venous Po2 55.0 mmHg High 35-45 Venous O2 Saturation 89.3 % High 70-80 Venous Blood Base Excess 12.7 mmol/L High 0.0-4.0 1 Venous Bicarbonate Hco3 34.6 mmol/L High 24-28 CBC Auto Diff 07/01/2018 [facility] White Blood Count 5.0 10^3/uL N 3.5-10.8 [phone] Red Blood Count 2.50 10^6/uL Low 4.18-5.48 [...] Cells % 0.1 Laboratory test finding 07/01/2018 [facility] Lactic Acid 1.6 mmol/L N 0.5-2.0 2 [phone] Calcium Ionized 0.92 mmol/L Low 1.16-1.32 Comp Metabolic Panel 07/01/2018 [facility] Sodium 135 mmol/L N 135- 145 [phone] Chloride 91 mmol/L Low 101-111 Co2 Carbon [...] Egfr Non- 14.0 >60 Egfr 16.9 >60 3 Potassium 2.4 mmol/L Low 3.5-5.0 4 Anion Gap 7 mmol/L N 2-11 Laboratory test finding 07/01/2018 [facility] Magnesium 2.0 mg/dL N 1.9-2.7 [phone] Acetaminophen < 15 g/mL 5 Ammonia 45 mcmol/L N 16-53 C Reactive Protein 11.19 mg/L High <8.01 TSH (Thyroid Stim Horm) 1.23 mcIU/mL N 0.34-5.60 Troponin-I (TnI) 0.05 ng/mL High <0.04 6 CBC Auto Diff 07/01/2018 [facility] White Blood Count 5.8 10^3/uL N 3.5-10.8 [phone] Red Blood Count 2.12 10^6/uL Low 4.18-5.48 [...] % Nucleated Red Blood Cells % 0.1 Comp Metabolic Panel 07/01/2018 [facility] Sodium 135 mmol/L N 135- 145 [phone] Chloride 92 mmol/L Low 101-111 Co2 Carbon Dioxide 36 mmol/L High 22-32 Calcium 7.0 mg/dL Low 8.6-10.3 Albumin 2.9 g/dL Low 3.2-5.2 Total Bilirubin 0.60 mg/dL N 0.2-1.0 Potassium 2.5 mmol/L Low 3.5-5.0 7 Anion Gap 7 mmol/L N 2-11 Glucose [...] Egfr Non- 16.5 >60 Egfr 20.0 >60 8 Laboratory test 07/01/2018 [facility] Magnesium 1.9 mg/dL N 1.9-2.7 finding [phone] CBC Auto Diff 06/28/2018 [facility] White Blood 8.7 10^3/uL N 3.5- 10.8 [phone] Count Red Blood Count 2.50 10^6/uL Low 4.18-5.48 [...] % Nucleated Red Blood Cells % 0 Hepatitis C Antibody 06/28/2018 [facility] HCV Index 0.1 Index [phone] Hepatitis C Antibody Nonreactive Nonreactive Lipid Profile (Trig/Chol/HDL) 06/28/2018 [facility] Triglycerides 100 mg/dL 9 [phone] Cholesterol 113 mg/dL 10 HDL Cholesterol 40.0 mg/dL 11 LDL Cholesterol 53 mg/dL 12 Laboratory test 06/07/2018 [facility] Rapid Influenza SEE RESULT 13 finding [phone] A B Antigen BELOW Rapid Influenza 06/07/2018 [facility] Influenza A NEGATIVE Negative 14 A & B Molecular [phone] Molecular Influenza B Molecular NEGATIVE Negative Laboratory test finding 06/07/2018 [facility] Acetaminophen < 15 g/ mL 15 [phone] Pediatric Blood Culture SEE RESULT BELOW 16 Urine Culture And 06/07/2018 [facility] Urine Culture SEE RESULT 17 Sensitivities [phone] BELOW Laboratory test finding 06/07/2018 [facility] Blood Culture SEE RESULT 18 [phone] BELOW Urinalysis Profile 06/07/2018 [facility] Urine Color Yellow [phone] Urine Appearance Cloudy Urine Specific Corbett 1.009 Low 1.010-1.030 Urine pH 9.0 N [...] Cell Present Abnormal Absent Laboratory test 06/07/2018 [facility] Partial 34.0 seconds N 26.0- 36.3 finding [phone] Thrombo Time PTT Inr/Protime 06/07/2018 [facility] Inr 1.67 High 0.77-1.02 [phone] Laboratory test 06/07/2018 [facility] C Reactive 42.00 mg/L High < 8.01 finding [phone] Protein Troponin-I (TnI) 0.07 ng/mL High <0.04 19 Comp Metabolic Panel 06/07/2018 [facility] Sodium 138 mmol/L N 135- 145 [phone] Potassium 2.8 mmol/L Low 3.5-5.0 Chloride 93 [...] Egfr Non- 11.6 >60 Egfr 14.0 >60 20 CBC Auto Diff 06/07/2018 [facility] White Blood Count 6.9 10^3/uL N 3.5-10.8 [phone] Red Blood Count 2.31 10^6/uL Low 4.18-5.48 [...] Blood Cells % 0.1 Laboratory test 06/07/2018 [facility] Lactic Acid 1.2 mmol/L N 0.5- 2.0 21 finding [phone] Laboratory test 06/06/2018 In House Hemoglobin A1c 5.5 finding Basic Metabolic 05/10/2018 [facility] Sodium 138 mmol/L N 135-145 Panel [phone] Potassium 2.9 mmol/L Low 3.5-5.0 Chloride 92 mmol/L Low 101-111 Co2 Carbon Dioxide 36 mmol/L High 22-32 Anion Gap 10 mmol/L N 2-11 Glucose 103 mg/dL High 70-100 Blood Urea Nitrogen 15 mg/dL N 6-24 Creatinine 4.01 mg/dL High 0.67-1.17 BUN/Creatinine Ratio 3.7 Low 8-20 Calcium 9.1 mg/dL N 8.6-10.3 Egfr Non- 15.7 >60 Egfr 19.0 >60 22 CBC Auto Diff 05/10/2018 [facility] White Blood Count 7.3 10^3/uL N 3.5-10.8 [phone] Red Blood Count 2.68 10^6/uL Low 4.00-5.40 [...] Blood Cells % 0 Laboratory test 05/10/2018 [facility] Partial 33.6 N 26.0-36.3 finding [phone] Thrombo Time seconds PTT Inr/Protime 05/10/2018 [facility] Inr 1.37 High 0.77-1.02 [phone] Laboratory test 03/29/2018 [facility] Tissue SEE RESULT 23, 24 finding [phone] Culture & BELOW Sensitiv Ua Inhouse 03/08/2018 In House Ua Glucose trace Ua Specific Corbett 1.005 Ua Blood +2 Ua PH 8.5 Ua Protein +3 Laboratory test finding 03/08/2018 In House Culture Throat negative Culture Throat Rapid Screen negative Urine Culture And 01/16/2018 [facility] Urine Culture SEE RESULT 25 Sensitivities [phone] BELOW Comp Metabolic Panel 01/16/2018 [facility] Sodium 140 mmol/L N 135- 145 [phone] Potassium 3.2 mmol/L Low 3.5-5.0 Chloride 93 [...] Egfr Non- 7.1 >60 Egfr 8.6 >60 26 Urine Microalbumin 01/16/2018 [facility] Urine Creatinine 114.23 mg/dL Random [phone] Ur Microalbumin (mg/L) > 1500.0 Urine Microalbumin/Creatinine 1313.1 High <31 Urinalysis Profile 01/16/2018 [facility] Urine Color Yellow [phone] Urine Appearance Cloudy Urine Specific Corbett 1.010 N 1.010-1.030 Urine pH 9.0 N [...] Epithelial Cell Present Abnormal Absent Inr/Protime 01/16/2018 [facility] Inr 1.20 High 0.77-1.02 [phone] CBC Auto Diff 01/16/2018 [facility] White Blood 7.9 10^3/uL N 3.5- 10.8 [phone] Count Red Blood Count 2.95 10^6/uL Low [...] Blood Cells % 0 Laboratory test 01/16/2018 [facility] Hemoglobin A1c 5.3 % N 4.0-5.6 27 finding [phone] (Glyco HGB) Laboratory test 10/26/2017 In House Hemoglobin A1c 5.5 finding CBC Auto Diff 07/28/2017 [facility] White Blood Count 8.7 N 3.5-10.8 [phone] 10^3/uL Red Blood Count 3.68 10^6/uL Low [...] Blood Cells % 0 Laboratory test 07/28/2017 [facility] B-Type Natriuretic 39 pg/mL 28 finding [phone] Peptide BNP Comp Metabolic 07/28/2017 [facility] Sodium 134 mmol/L Low 139-14 Panel [phone] Potassium 3.2 mmol/L Low 3.5-5.0 Chloride [...] Egfr Non- 11.2 >60 Egfr 14.4 >60 29 Laboratory test 07/28/2017 [facility] Troponin-I (TnI) 0.04 ng/mL High <0.04 30 finding [phone] TSH (Thyroid Stim Horm) 1.44 mcIU/mL N 0.34-5.60 Laboratory test 07/28/2017 [facility] Lactic Acid 1.9 mmol/L N 0.5- 2.0 31 finding [phone] Inr/Protime 07/28/2017 [facility] Inr 1.20 High 0.77-1.02 [phone] Laboratory test 07/28/2017 [facility] Troponin-I 0.03 ng/mL <0.04 finding [phone] (TnI) Type & Screen 05/21/2017 [facility] Patient Blood A Positive 32 [phone] Type Antibody Screen NEGATIVE Laboratory test 05/21/2017 [facility] Packed Cells SEE RESULTS 33 finding [phone] BELO <SEE NOTE> Laboratory test 05/07/2017 [facility] Lactic Acid 1.5 mmol/L N 0.5- 2.0 34 finding [phone] Laboratory test 05/01/2017 [facility] Surgical SEE RESULT 35 finding [phone] Interface Order BELOW Laboratory test 05/01/2017 [facility] Clotest SEE RESULT 36 finding [phone] BELOW Urinalysis 02/17/2017 [facility] Urine Color Straw Profile [phone] Urine Appearance Clear Urine Specific Corbett 1.004 Low 1.010-1.030 Urine pH 9.0 N [...] Urine Bacteria Absent Absent Laboratory test 02/17/2017 [facility] Wound Culture/Sensi SEE RESULT 37 finding [phone] BELOW MRSA/S. aureus Ssti PCR SEE RESULT BELOW 38 Laboratory test 02/17/2017 [facility] Lactic Acid 0.9 mmol/L N 0.5- 2.0 39 finding [phone] Laboratory test 02/17/2017 [facility] Erythrocyte Sed 120 mm/Hr High 0-20 finding [phone] Rate Blood Culture SEE RESULT BELOW 40 CBC Auto Diff 02/17/2017 [facility] White Blood 11.8 10^3/uL High 3.5 -10.8 [phone] Count Red Blood Count 2.45 10^6/uL Low [...] Cells % 0 Laboratory test finding 02/17/2017 [facility] Uric Acid 3.1 mg/dL Low 4.4-7.6 [phone] C Reactive Protein 12.71 mg/L High < 5.00 41 Comp Metabolic Panel 02/17/2017 [facility] Sodium 135 mmol/L N 133- 145 [phone] Potassium 4.9 mmol/L N 3.5-5.0 Chloride 96 [...] Egfr Non- 13.4 >60 Egfr 17.2 >60 42 Lipid Profile 02/15/2017 [facility] Triglycerides 121 mg/dL 43 (Trig/Chol/HDL) [phone] Cholesterol 126 mg/dL 44 HDL Cholesterol 43.4 mg/dL 45 LDL Cholesterol 58 mg/dL 46 Comp Metabolic Panel 02/15/2017 [facility] Sodium 138 mmol/L N 133- 145 [phone] Potassium 4.7 mmol/L N 3.5-5.0 Chloride 95 [...] Egfr Non- 19.6 >60 Egfr 25.3 >60 47 CBC Auto Diff 02/15/2017 [facility] White Blood 11.5 10^3/uL High 3.5 -10.8 [phone] Count Red Blood Count 2.66 10^6/uL Low [...] Blood Cells % 0 Laboratory test 02/15/2017 [facility] TSH (Thyroid 3.28 mcIU/mL N 0.34-5.60 finding [phone] Stim Horm) Laboratory test 02/13/2017 In House Hemoglobin A1c 5.7 finding CBC Auto Diff 02/06/2017 [facility] White Blood 8.1 10^3/uL N 3.5- 10.8 [phone] Count Red Blood Count 2.48 10^6/uL Low [...] Cells % 0 Comp Metabolic Panel 02/06/2017 [facility] Sodium 137 mmol/L N 133- 145 [phone] Potassium 4.3 mmol/L N 3.5-5.0 Chloride 97 [...] Egfr Non- 13.9 >60 Egfr 17.9 >60 48 Laboratory test finding 02/06/2017 [facility] Lipase 28 U/L N 11.0- 82.0 [phone] 1 Reference ranges based on room air. 2 [facility] Severe Sepsis and Septic Shock Management Bundle Measure requires all lactic acids initially measuring >2.0 mmol/L be repeated. 3 Because ethnic data is not always readily [...] 15-29 5 Kidney failure <15 (or dialysis) 4 Critical Result K:2.4 Called to [id number] at: 10:37:31 by:[id number] Read back by:[id number] 5 Therapeutic concentration: <50 ug/mL Toxic concentration: >120 ug/mL 6 Result TnIDx:0.05 Called to [id number] at: 19:01:43 by:[id number] Read back by: [id number] Troponin-I testing on Plasma Separator Tubes (PST) has a known false positive rate of 0.20-0.40%. All positive troponins reflex immediately to secondary confirmatory testing. Using the [employer] DxI 800 Access Immunoassay systems, the 99th percentile upper reference limit was demonstrated to be < 0.03 ng/mL. 7 Critical Result K:2.5 Called to [id number] at: 11:06:46 by:[id number] Read back by:[id number] 8 Because ethnic data is not always readily [...] 15-29 5 Kidney failure <15 (or dialysis) 9 Desirable: <150 Borderline High: 150-199 High: 200-499 Very High: >500 10 Desirable: <200 Borderline High: 200-239 High: >239 11 Low: <40 Desirable: 40-60 High: >60 12 Desirable: <100 Near Optimal: 100-129 Borderline High: 130-159 High: 160-189 Very High: >189 13 SEE RESULT BELOW Name: KATY SINGLETARY : [address]: Ellis Elise MD Acct: [id number] Unit: [id number] AGE: 53 Location: ED Re06/07/18 SEX: M Status: REG ER SPEC: [id number] ANGELES: 06/07/18-14[address] [facility] [address]: Ellis Elise MD REQ: [id number] RECD: 06/07/18 STATUS: ROM OZUNA DR: Lety JARVIS _ SOURCE: NASAL SPDESC: ORDERED: Campbell A Mary Ellen Request Procedure Result Reported Site Rapid Influenza A B Request Final 06/07/18- 1529 ML Specimen received for Influenza A/B Molecular testing * ML - Main Lab . END OF REPORT DEPARTMENT OF PATHOLOGY, [address] [place] [address] Juan Deleon M.D. Director [facility] # [id number] 14 [place] Measurer: [id number] 15 Therapeutic concentration: <50 ug/mL Toxic concentration: >120 ug/mL 16 SEE RESULT BELOW Name: KATY SINGLETARY : [address]: Philly Miller MD Acct: [id number] Unit: [id number] AGE: 53 Location: [place] [address] Re06/07/18 SEX: M Status: ADM IN SPEC: [id number] ANGELES: 06/07/181446 [facility] DR: Ellis Elise MD REQ: [id number] RECD: 06/07/18 STATUS: ROM OZUNA DR: Lety Santamaria RPA-C _ SOURCE: BLOOD,VENO SPDESC: ORDERED: Blood Cult, Pediatric Bottl Procedure Result Reported Site Pediatric Blood Culture Final 06/12/181510 ML No Growth Day 5 * ML - Main Lab . END OF REPORT DEPARTMENT OF PATHOLOGY, [address] [place] [address] Juan Deleon M.D. Director [facility] # [id number] 17 SEE RESULT BELOW Name: KATY SINGLETARY : [address]: Jamal Mcghee MD Acct: [id number] Unit: [id number] AGE: 53 Location: [place] [address] Re06/07/18 SEX: M Status: ADM IN SPEC: [id number] ANGELES: 06/07/[address]: Ellis Elise MD REQ: [id number] RECD: 06/07/18 STATUS: ROM OZUNA DR[facility] _ SOURCE: URINE SPDESC: ORDERED: Urine Culture Procedure Result Reported Site Urine Culture Final 06/09/18- 0916 ML No growth of clinically significant organisms * ML - Main Lab . END OF REPORT DEPARTMENT OF PATHOLOGY, [address] [place] [address] Juan Deleon M.D. Director [facility] # [id number] 18 SEE RESULT BELOW Name: YEISONKATY Donnell : [address]: Philly Miller MD Acct: [id number] Unit: [id number] AGE: 53 Location: [place] [address] Re06/07/18 SEX: M Status: ADM IN SPEC: [id number] ANGELES: 06/07/18-1500 [facility] [address]: Ellis Elise MD REQ: [id number] RECD: 06/07/18 STATUS: ROM OZUNA DR: Lety Santamaria [facility] _ SOURCE: BLOOD,VENO SPDESC: ORDERED: Blood Cult Procedure Result Reported Site Aerobic Culture Bottle Final 06/12/18- 1506 ML No Growth Day 5 Anaerobic Culture Bottle Final 06/12/18- 1506 ML No Growth Day 5 * ML - Main Lab . END OF REPORT DEPARTMENT OF PATHOLOGY, [address] [place] [address] Juan Deleon M.D. Director [facility] # [id number] 19 Result TnIDx:0.07 Called to [id number] at: 16:26:39 by:[id number] Read back by: [id number] Troponin-I testing on Plasma Separator Tubes (PST) has a known false positive rate of 0.20-0.40%. All positive troponins reflex immediate secondary confirmatory testing. 20 Because ethnic data is not always readily [...] 15-29 5 Kidney failure <15 (or dialysis) 21 [facility] Severe Sepsis and Septic Shock Management Bundle Measure requires all lactic acids initially measuring >2.0 mmol/L be repeated. 22 Because ethnic data is not always [...] 5 Kidney failure <15 (or dialysis) 23 RIGHT FOOT 24 SEE RESULT BELOW Name: KATY SINGLETARY: [address]: Amparo Landis [place] Acct: [id number] Unit: [id number] AGE: 53 Location: W[place] Re03/29/18 SEX: M Status: REG REF SPEC: [id number] ANGELES: 03/29/181413 SUBM DR: Amparo Landis [place] REQ: [id number] RECD: 03/29/18 STATUS: ROM OZUNA DR: Lety TORRESC _ SOURCE: TISSUE SPDESC:RIGHT ORDERED: Tissue Cult/GS [...] CONTINUED ON NEXT PAGE DEPARTMENT OF PATHOLOGY, [address] [place] [address] Juan Deleon M.D. Director [facility] # [id number] Patient: KATY SINGLETARY [id number] (Continued) Specimen: [id number] Collected: 03/29/18 Received: 03/29/18-517 (Continued) Procedure Result Reported Site Tissue Culture [...] . END OF REPORT DEPARTMENT OF PATHOLOGY, [address] [place] [address] Juan Deleon M.D. Director [facility] # [id number] 25 SEE RESULT BELOW Name: KATY SINGLETARY : [address]: Lety JARVIS Acct: [id number] Unit: [id number] AGE: 52 Location: [facility] Re01/16/18 SEX: M Status: REG REF SPEC: [id number] ANGELES: 01/16/[address]: Lety JARVIS REQ: [id number] RECD: 01/16/18 STATUS: ROM OZUNA DR: Scott Boyd MD _ SOURCE: URINE SPDESC: ORDERED: Urine Culture Procedure Result Reported Site Urine Culture Final 01/17/18- 1525 ML Organism 1 STREP GROUP B Leonard Count 1-10,000 (Few) CFU/ML Susceptibility testing of penicillins and other B-lactams approved by FDA for treatment of Streptococcus pyogenes (Group A Strep) and Streptococcus agalactiae (Group B Strep) is not necessary for clinical purposes and need not be done routinely, since as with vancomycin, resistant strains have not been recognized. (CLSI J348-K81;p.66) Positive isolates will be saved for one week. Please call the Microbiology Laboratory if further susceptibility testing is needed. * ML - Main Lab . END OF REPORT DEPARTMENT OF PATHOLOGY, [address] [place] [address] Juan Deleon M.D. Director [facility] # [id number] 26 Because ethnic data is not always [...] 15-29 5 Kidney failure <15 (or dialysis) 27 Therapeutic target for the treatment of diabetes mellitus patients is <7% HBA1C, and in selective patients <6.0%. Please refer to [place] [employer] diabetic care guidelines for further information. 28 >100 to <200 pg/mL: likely compensated congestive heart failure (CHF) 200 to 400 pg/mL: likely moderate CHF >400 pg/mL: likely moderate to severe CHF 29 Because ethnic data is not always readily [...] 15-29 5 Kidney failure <15 (or dialysis) 30 Result TnIDx:0.04 Called to [id number] at: 17:43:09 by:[id number] Read back by: [email or web address] 31 [facility] Severe Sepsis and Septic Shock Management Bundle Measure requires all lactic acids initially measuring >2.0 mmol/L be repeated. 32 BLOOD WORK 33 SEE RESULTS BELOW [id number] AP PC TRANSFUSED 05/21/172000 34 [facility] Severe Sepsis and Septic Shock Management Bundle Measure requires all lactic acids initially measuring >2.0 mmol/L be repeated. 35 SEE RESULT BELOW Name: KATY SINGLETARY : [address]: Garry Javed MD Acct: [id number] Unit: [id number] AGE: 52 Location: [facility] Re05/01/17 SEX: M Status: DEP REF SPEC: [id number] ANGELES: 05/01/17- SUBM DR: Garry Javed MD REQ: [id number] RECD: 05/01/17 STATUS: CINTIA OZUNA DR: Lety Santamaria RPA-C Katy Johnson MD _ ORDERED: LEVEL 4/3, [...] performed at Main Lab DEPARTMENT OF PATHOLOGY, [address] [place] [address] Juan Deleon M.D. Director [facility] # [id number] RUN DATE: 05/04/17 [facility] LAB LIVE PAGE 2 Patient: KATY SINGLETARY [id number] (Continued) CLINICAL HISTORY (Continued) CLINICAL HISTORY Anemia, [...] performed at Main Lab DEPARTMENT OF PATHOLOGY, [address] [place] [address] Juan Deleon M.D. Director [facility] # [id number] 36 SEE RESULT BELOW Name: KATY SINGLETARY : [address]: Garry Javed MD Acct: [id number] Unit: [id number] AGE: 52 Location: ENDO Re05/01/17 SEX: M Status: DEP REF SPEC: [id number] ANGELES: 05/01/17-1229 [facility] [address]: Garry Javed MD REQ: [id number] RECD: 05/03/17-5792 STATUS: ROM OZUNA DR: Lety JARVIS _ SOURCE: GAS ANTRUM SPDESC: ORDERED: Clotest Procedure Result Reported Site Clotest Final 05/04/17- 930 ML Clotest Negative * ML - MAIN LAB (PSC1) . END OF REPORT * ML=Testing performed at Main Lab DEPARTMENT OF PATHOLOGY, [address] [place] [address] Juan Deleon M.D. Director [facility] # [id number] 37 SEE RESULT BELOW Name: KATY SINGLETARY : [address]: Fermín Oscar MD Acct: [id number] Unit: [id number] AGE: 52 Location: ED Re02/17/17 SEX: M Status: REG ER SPEC: [id number] ANGELES: 02/17/[address]: Fermín Oscar MD REQ: [id number] RECD: 02/17/17 STATUS: RES SULMA DR: Lety Santamaria [facility]- _ SOURCE: FOOT,LEFT SPDESC: ORDERED: Culture Stain Procedure Result Reported Site Wound/Misc Gram Stain Final 02/17/17- 1902 ML 1+ Epithelial Cells 1+ Neutrophils 4+ Gram Positive Cocci in Clusters, resembling Staph 3+ Gram Negative Bacilli Wound/Misc Culture PENDING * ML - [facility] . END OF REPORT * ML=Testing performed at Main Lab DEPARTMENT OF PATHOLOGY, [address] [place] [id number] Juan Deleon M.D. Director [facility] # [id number] 38 SEE RESULT BELOW Name: KATY SINGLETARY Donnell : [address]: Philly Miller MD Acct: [id number] Unit: [id number] AGE: 52 Location: [facility] 341-02 Re02/17/17 SEX: M Status: ADM IN SPEC: [id number] ANGELES: 02/17/[address] [facility] [address]: Fermín Oscar MD REQ: [id number] RECD: 02/17/17 STATUS: ROM OZUNA DR: Lety Santamaria [facility] _ SOURCE: FOOT,LEFT SPDESC: ORDERED: MRSA/SA SSTI, Culture Stain Procedure Result Reported Site MRSA/S. aureus SSTI PCR Final 02/17/17- 2008 ML Organism 1 MRSA NEGATIVE Organism 2 S.AUREUS NEGATIVE Wound/Misc Gram Stain Final 02/17/17- 1903 ML 1+ Epithelial Cells 1+ Neutrophils 4+ [...] performed at Main Lab DEPARTMENT OF PATHOLOGY, [address] [place] [address] Juan Deleon M.D. Director [facility] # [id number] Patient: KATY SINGLETARY [id number] (Continued) Specimen: [id number] Collected: 02/17/17 Received: 02/17/17 (Continued) Procedure Result Reported Site Wound/Misc Culture Final (continued) 02/20/171026 1. ENTEROCOCCUS FAECALIS (continued) M.I.C. RX --------- ------ * Streptomycin High Level S Tetracycline >=16 R Tigecycline <=0.12 S Vancomycin 1 S Imipenem-Deduced S * Ampicillin/Sulbactam-Deduced S * These antibiotics are not available in the [facility] Formulary Contact the Microbiology Department for any additional antibiotic reporting. * ML - MAIN LAB (THE [facility] . END OF REPORT * ML=Testing performed at Main Lab DEPARTMENT OF PATHOLOGY, [address] [place] [address] Juan Deleon M.D. Director [facility] # [id number] [facility] Severe Sepsis and Septic Shock Management Bundle Measure requires all lactic acids initially measuring >2.0 mmol/L be repeated. 40 SEE RESULT BELOW Name: KATY SINGLETARY : [address]: Philly Miller MD Acct: [id number] Unit: [id number] AGE: 52 Location: [facility] 341-02 Re02/17/17 SEX: M Status: ADM IN SPEC: [id number] ANGELES: 02/17/[address] [facility] [address]: Fermín Oscar MD REQ: [id number] RECD: 02/17/17 STATUS: RES [facility] DR[facility] _ SOURCE: BLOOD,VENO SPDESC: ORDERED: Blood Cult Procedure Result Reported Site Aerobic Culture Bottle Preliminary 02/18/17- 1809 ML No Growth Day 1 Anaerobic Culture Bottle Preliminary 02/18/17- 1807 ML No Growth Day 1 * ML - MAIN LAB (PSC1) . END OF REPORT * ML=Testing performed at Main Lab DEPARTMENT OF PATHOLOGY, [address] [place] [address] Juan Deleon M.D. Director [facility] # [id number] 41 Acute inflammation: >10.00 42 Because ethnic data is not always readily [...] 15-29 5 Kidney failure <15 (or dialysis) 43 Desirable: <150 Borderline High: 150-199 High: 200-499 Very High: >500 44 Desirable: <200 Borderline High: 200-239 High: >239 45 Low: <40 Desirable: 40-60 High: >60 46 Desirable: <100 Near Optimal: 100-129 Borderline High: 130-159 High: 160-189 Very High: >189 47 Because ethnic data is not always readily [...] 15-29 5 Kidney failure <15 (or dialysis) 48 Because ethnic data is not always readily [...] dialysis) Procedures Date Code Description Status 01/16/2018 24051 Brief Emotional/Behav Assessment W/ Scoring Doc Per Completed Standard Inst 01/02/2018 827695051 Diabetic Retinal Eye Exam Completed 05/01/2017 [id number] Colonoscopy Completed 03/12/2017 [id number] Diabetic Foot Exam Completed Encounters Type Date Location Provider Dx Diagnosis Office Visit 06/27/2018 Main Office Ta Baxter, I16.1 Hypertensive emergency 9:45a D.O. E11.21 Type 2 diabetes mellitus with diabetic [...] am - Ta Baxter D.O. 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
--- OUTSIDE RECORDS SUMMARY | 2018-08-07 12:11 | XMS REPORT | Continuity of Care Document ---
:1965 External Reference #:[id number] Author Name Sofia Stephensecca Care Team Providers Name Role Phone Lety Santamaria PA Primary Care Physician Unavailable Payers Date Identification Numbers Payment Provider Subscriber Effective: Policy Number: [id number] [facility] Katy Jacobo Throckmorton 2010 PayID: [id number] [address] [address] [place] [address] Policy Number: [id number] Medicare Katy Jacobo Throckmorton PayID: [id number] [address] [place] [address] Advance Directives Type Date Description Status Comment Other Directive 06/14/2018 Health Care Proxy Current and Verified Problems Active Problems Provider Date Chronic osteomyelitis of ankle Adrián Louis M.D. Onset: 02/03/2015 and/or foot Mitral valve disorder William Chavez M.D., [facility], Onset: 03/30/2017 [facility] Essential hypertension William Chavez M.D., [facility], Onset: 03/30/2017 [facility] Family History Date Family Member(s) Observation Comments General Father-[place] General mother- due to liver cancer. General paternal bxehhhknksn-eqnvjuef-TDC General Maternal grandfather-heart disease- due to General - 12/2016-[place] Father Heart Disease Mother due to Liver Cancer () - age 60 something Siblings 1 sister- 51-Guillian Marion syndrome as a teenager Social History Type Date Description Comments Sex Unknown Marital Status Lives With Patient in december-2016 Lives With Alone Occupation Disabled in 2017 ETOH Use Occasionally consumes alcohol Tobacco Use Start: Unknown Patient has never smoked Recreational Drug Use Denies Drug Use Smoking Status Reviewed: 07/08/18 Patient has never smoked Exercise Type/Frequency Does not exercise Allergies, Adverse Reactions, Alerts Active Allergies Reaction Severity Comments Date NKDA 02/04/2013 Grass 03/30/2017 Medications Active Medications SIG Qnty Indications Ordering Provider Date Pantoprazole Sodium 1 by mouth twice Unknown 40mg a day Tablets DR Vitamin B Complex 1 by mouth every [...] with Kathy Mcwilliams 06/04/[address] madi (on hold as of 06/04/18) [place] 1 tab by mouth q6 20tabs Adrián Louis, 04/06/2017 - 5-325mg Tablets hours as needed M.D. 05/24/2017 pain [place] 1 tab by mouth q6 20tabs Boom [...] Available Vital Signs Date Vital Result Comment 07/08/2018 2:57pm Height 71 inches 5'11" Weight [...] Test Result H/L Range Note Laboratory test 06/28/2018 [facility] C Reactive 16.24 mg/L High <8.[address] [place] [address] [phone] Laboratory test 06/04/2018 [facility] C Difficile SEE RESULT [address] [place] [address] [phone] Inr/Protime 05/10/2018 [facility] Inr 1.37 High 0.77-1.[address] [place] [address] [phone] Laboratory test 05/10/2018 [facility] Partial 33.6 seconds N 26.0-36.[address] [place] [address] PTT [phone] CBC Auto Diff 05/10/2018 [facility] White Blood 7.3 10^3/uL N 3.5-10.[address] [place] [address] [phone] Red Blood Count 2.68 10^6/uL Low 4.00-5.40 [...] Cells % 0 Basic Metabolic Panel 05/10/2018 [facility] Sodium 138 mmol/L N 135-[address] [place] [address] [phone] Potassium 2.9 mmol/L Low 3.5-5.0 Chloride 92 mmol/L Low 101-111 Co2 Carbon Dioxide 36 mmol/L High 22-32 Anion Gap 10 mmol/L N 2-11 Glucose 103 mg/dL High 70-100 Blood Urea Nitrogen 15 mg/dL N 6-24 Creatinine 4.01 mg/dL High 0.67-1.17 BUN/Creatinine Ratio 3.7 Low 8-20 Calcium 9.1 mg/dL N 8.6-10.3 Egfr Non- 15.7 >60 Egfr 19.0 >60 2 Laboratory test 03/29/2018 [facility] Tissue Culture SEE RESULT 3, [address] & [place] [address] [phone] Basic Metabolic 01/09/2018 [facility] Sodium 141 mmol/L N 135- [address] [place] [address] [phone] Potassium 3.6 mmol/L N 3.5-5.0 Chloride 94 mmol/L Low 101-111 Co2 Carbon Dioxide 33 mmol/L High 22-32 Anion Gap 14 mmol/L High 2-11 Glucose 104 mg/dL High 70-100 Blood Urea Nitrogen 37 mg/dL High 6-24 Creatinine 7.57 mg/dL High 0.67-1.17 BUN/Creatinine Ratio 4.9 Low 8-20 Calcium 8.4 mg/dL Low 8.6-10.3 Egfr Non- 7.6 >60 Egfr 9.1 >60 5 Laboratory test 01/09/2018 [facility] Erythrocyte Sed 79 mm/Hr High 0-[address] [place] [address] [phone] Urinalysis 03/31/2017 [facility] Urine Color Yellow Profile [address] [place] [address] [phone] Urine Appearance Clear Urine Specific Mellen 1.014 N 1.010-1.030 Urine pH 8.0 N [...] Cell Present Abnormal Absent CBC Auto 03/29/2017 [facility] White Blood 12.6 10^3/uL High 3.5-10.[address] [place] [address] [phone] Red Blood Count 2.22 10^6/uL Low 4.0-5.4 [...] Cells % 0.1 Basic Metabolic Panel 03/29/2017 [facility] Sodium 134 mmol/L N 133-[address] [place] [phone] Potassium 4.8 mmol/L N 3.5-5.0 Chloride 93 mmol/L Low 101-111 Co2 Carbon Dioxide 31 mmol/L N 22-32 Anion Gap 10 mmol/L N 2-11 Glucose 93 mg/dL N 70-100 Blood Urea Nitrogen 24 mg/dL N 6-24 Creatinine 3.98 mg/dL High 0.67-1.17 BUN/Creatinine Ratio 6.0 Low 8-20 Calcium 8.7 mg/dL N 8.6-10.3 Egfr Non- 15.9 >60 Egfr 20.4 >60 6 Inr/Protime 03/29/2017 [facility] Inr 1.21 High 0.77-1.[address] [place] [phone] Laboratory test 03/29/2017 [facility] Partial 35.9 N 26.0- 36.[address] [place] [address] [place] [address] PTT [phone] Laboratory test 08/03/2015 [facility] C Reactive < 1.00 mg/L N < 5.00 7 finding Formerly named [facility] [place] [address] [phone] Laboratory test 07/06/2015 [facility] C Reactive < 1.00 mg/L N < 5.00 [address] [place] [address] [place] [address] [phone] CBC Auto Diff 07/06/2015 [facility] White Blood 7.4 10^3/uL N 3.5-10.8 Formerly named [facility] [place] [address] [phone] Red Blood Count 3.30 10^6/uL Low 4.0-5.4 [...] Cells % 0.1 N Laboratory test 07/06/2015 [facility] Erythrocyte Sed 81 mm/Hr High 0-[address] [place] [address] [phone] Laboratory test 06/08/2015 [facility] Hemoglobin A1c 7.6 % High Less [address] (Glyco HGB) than 6.0 [place] [address] [phone] Laboratory test 12/24/2014 [facility] Uric Acid 5.8 mg/dL N 4.4-7.[address] [place] [address] [phone] Basic Metabolic 12/24/2014 [facility] Sodium 138 N 133-[address] mmol/[place] [address] [phone] Potassium 5.7 mmol/L High 3.5-5.0 Chloride 111 mmol/L N 101-111 Co2 Carbon Dioxide 18 mmol/L Low 22-32 Anion Gap 9 mmol/L N 2-11 Glucose 157 mg/dL High 70-100 Blood Urea Nitrogen 34 mg/dL High 6-24 Creatinine 3.08 mg/dL High 0.67-1.17 BUN/Creatinine Ratio 11.0 N 8-20 Calcium 8.3 mg/dL Low 8.6-10.3 Egfr Non- 21.6 N >60 Egfr 27.8 N >60 10 Comp Metabolic Panel 02/25/2013 [facility] Sodium 132 mmol/L Low 133-[address] [place] [address] [phone] Potassium 4.0 mmol/L 3.5-5.0 Chloride 104 mmol/L [...] Non- 53.9 >60 Egfr 69.3 >60 11 Laboratory test 02/25/2013 [facility] C Reactive 0.6 mg/dL High Less than finding [address] Protein 0.5 [place] [address] [phone] Wound 02/19/2013 [facility] Wound/Misc (SEE NOTE) 12 Culture/Sensi [address] [place] [address] Stain [phone] Comp Metabolic 02/11/2013 [facility] Sodium 140 mmol/L 133- [address] [place] [address] [phone] Potassium 4.1 mmol/L 3.5-5.0 Chloride 106 mmol/L [...] Egfr 51.8 >60 13 Laboratory test 02/11/2013 [facility] C Reactive 0.6 mg/dL High Less than finding [address] Protein 0.5 [place] [address] [phone] Basic Metabolic 01/30/2013 [facility] Sodium 134 mmol/L 133- [address] [place] [address] [phone] Potassium 4.8 mmol/L 3.5-5.0 Chloride 102 mmol/L 101-111 Co2 Carbon Dioxide 24.0 mmol/L 22-32 Anion Gap 8.0 mmol/L 2-11 Glucose 261 mg/dL High 70-100 Blood Urea Nitrogen 29 mg/dL High 6-24 Creatinine 2.10 mg/dL High 0.50-1.40 BUN/Creatinine Ratio 13.8 8-20 Calcium 9.0 mg/dL 8.1-9.9 Egfr Non- 33.7 >60 Egfr 43.4 >60 14 CBC Auto Diff 01/30/2013 [facility] White Blood 10.3 10^3/uL 4.8-10.[address] [place] [address] [phone] Red Blood Count 3.46 10^6/uL Low 4.0-5.4 [...] Blood Cells % 0.1 Laboratory test 01/13/2013 [facility] Glucose 399 mg/dL High 70-[address] [place] [id number] [phone] 1 SEE RESULT BELOW Name: KATY SINGLETARY : [address]: Ector Mcwilliams MD Acct: [id number] Unit: [id number] AGE: 53 Location: [facility] Re06/03/18 SEX: M Status: REG REF SPEC: [id number] ANGELES: 06/04/18-[address] [facility] [address]: Ector Mcwilliams MD REQ: [id number] RECD: 06/04/18 STATUS: COMP _ SOURCE: STOOL SPDESC: ORDERED: C. diff PCR, Stool Culture COMMENTS: [id number] ADDED 06/05/18 TO [id number] SPECIMEN IN CUP YELLOW TOP C S [...] CONTINUED ON NEXT PAGE DEPARTMENT OF PATHOLOGY, [address] [place] [address] Juan Deleon M.D. Director [facility] # [id number] Patient: KATY SINGLETARY [id number] (Continued) Specimen: [id number] Collected: 06/04/18 Received: 06/04/18-1122 (Continued) Procedure Result Reported Site C. difficile PCR Final (continued) 06/04/18- 1256 * ML - [facility] . END OF REPORT DEPARTMENT OF PATHOLOGY, [address] [place] [address] Juan Deleon M.D. Director [facility] # [id number] 2 Because ethnic data is not always [...] [address]: Amparo Landis NP Acct: [id number] Unit: [id number] AGE: 53 Location: WOUND Re03/29/18 SEX: M Status: REG REF SPEC: [id number] ANGELES: 03/29/18-[address] [facility] [address]: Amparo Landis NP REQ: [id number] RECD: 03/29/184885 STATUS: COMP [facility] DR: Lety TORRESC _ SOURCE: TISSUE SPDESC:RIGHT [...] CONTINUED ON NEXT PAGE DEPARTMENT OF PATHOLOGY, [address] [place] [address] Juan Deleon M.D. Director [facility] # [id number] Patient: KATY SINGLETARY [id number] (Continued) Specimen: [id number] Collected: 03/29/18 Received: 03/29/18789 (Continued) Procedure Result Reported Site Tissue Culture [...] . END OF REPORT DEPARTMENT OF PATHOLOGY, [address] [place] [address] Juan Deleon M.D. Director [facility] # [id number] 5 Because ethnic data is not always [...] and in selective patients <6.0%.Please refer to [place] [employer] Diabetic care guidelines for further [...] <15 (or dialysis) 12 RUN DATE: 02/21/13 [facility] LAB LIVE PAGE 1 RUN TIME: [address] [place] [address] Specimen Inquiry Name: KATY SINGLETARY : [address]: Mono Marcelino Acct: [id number] Unit: [id number] AGE: 48 Location: WOUND Re02/21/13 SEX: M Status: REG RCR SPEC: [id number] ANGELES: 02/19/[address]: Mono Marcelino M REQ: [id number] RECD: 02/19/13 STATUS: ROM OZUNA DR: Ector Glasgow MD _ SOURCE: TOE SPDESC:RIGHT ORDERED: Culture Stain Procedure Result Verified Site Wound/Misc Gram Stain Final 02/19/13- 1422 ML No Polys Observed No Organisms Seen Wound/Misc Culture Final 02/21/13- 1112 ML Organism 1 NORMAL KEVIN Quantity 1+ END OF REPORT * ML=Testing performed at Main Lab DEPARTMENT OF PATHOLOGY, [address] [place] [address] Juan Deleon M.D. Director [facility] Permit #[id number] 13 Because ethnic data is not always [...] (or dialysis) Procedures Date Code Description Status 07/01/2018 68401 ECHO Transthorasic Realtime 2D W Doppler & Color Flow Hosp Completed 05/31/2018 32165 Removal Devitalization Tissue Wound Less Than Equal 20 Completed Square CM 05/17/2018 11670 I&D Of Abscess Complicated Completed 05/10/2018 78829 Moderate Sedation Services; Same Phys Each Additional 15 Completed Mins 05/10/2018 62707 Moderate Sedation Services; Same Phys Intl 15 Mins; PT >=5 Completed Years 05/10/2018 02191 Ultrasound Guidance For Vascular Access Completed 05/10/2018 44594 Dialysis Circuit W/ Transluminal Balloon Angioplasty, Completed Peripheral 04/12/2018 10173 Chemical Cautery Granulation Tissue Completed 04/05/2018 97640 Apply Total Contact Leg Cast Completed 03/29/2018 92583 Debridement Skin,& sq Tissue Completed 03/22/2018 35244 Apply Total Contact Leg Cast Completed 03/15/2018 30683 Removal Devitalization Tissue Wound Less Than Equal 20 Completed Square CM 03/01/2018 59530 Apply Total Contact Leg Cast Completed 02/21/2018 77866 Removal Devitalization Tissue Wound Less Than Equal 20 Completed Square CM 02/15/2018 00525 Apply Total Contact Leg Cast Completed 02/08/2018 53470 Apply Total Contact Leg Cast Completed 01/18/2018 04106 Apply Total Contact Leg Cast Completed 01/11/2018 62902 Apply Total Contact Leg Cast Completed 01/04/2018 42478 Debridement Skin,& sq Tissue Completed 12/03/2017 60312 Removal Of Tunneled Central Venous Cath W/O Subcutaneous Completed Port/PEDICAB DRIVER 05/10/2017 04388 Amputation Foot Midtarsal Completed 05/10/2017 45136 Amputation Foot Midtarsal Completed 05/10/2017 20129 Transfer Tendon Leg Or Ankle Superficial Completed 05/10/2017 93927 Transfer Tendon Leg Or Ankle Superficial Completed 05/10/2017 09921 Tenotomy Achilles Tendon General Anesthesia Completed 04/23/2017 81128 EKG, Interpretation Only Completed 03/30/2017 65562 EKG Tracing & Interpretation Completed 03/28/2017 59645 Rad Exam; Foot Comp Completed 03/02/2017 72948 Short Leg Cast Completed 02/19/2017 68088 Amputation Foot Transmetatarsal Completed 02/19/2017 72196 Amputation Foot Transmetatarsal Completed 01/31/2017 16608 Treadmill Interp/Report Only Completed 01/31/2017 51523 Stress Test Supervsn W/Out I/R Completed 01/30/2017 27094 ECHO Transthorasic Realtime 2D W Doppler & Color Flow Hosp Completed 01/23/2017 70660 Fluoroscopic Guidance For Cent Completed 01/23/2017 11935 Insertion Tunneled Cent Venous Cathr W/O Subcut Port/Pump Completed 5Yrs> 01/21/2017 21553 EKG, Interpretation Only Completed 01/19/2017 90684 EKG, Interpretation Only Completed 01/19/2017 36809 Insert Non-Tunneled Venous Catether Completed 08/19/2015 25242 Apply Total Contact Leg Cast Completed 08/10/2015 31572 Removal Devitalization Tissue Wound Less Than Equal 20 Completed Square 08/03/2015 46435 Removal Devitalization Tissue Wound Less Than Equal 20 Completed Square 07/27/2015 75967 Removal Devitalization Tissue Wound Less Than Equal 20 Completed Square 07/20/2015 87282 Removal Devitalization Tissue Wound Less Than Equal 20 Completed Square 07/13/2015 45517 Removal Devitalization Tissue Wound Less Than Equal 20 Completed Square 07/06/2015 70507 Removal Devitalization Tissue Wound Less Than Equal 20 Completed Square 06/29/2015 28061 Removal Devitalization Tissue Wound Less Than Equal 20 Completed Square 06/22/2015 00735 Removal Devitalization Tissue Wound Less Than Equal 20 Completed Square 06/15/2015 49538 Removal Devitalization Tissue Wound Less Than Equal 20 Completed Square 06/08/2015 66688 Removal Devitalization Tissue Wound Less Than Equal 20 Completed Square 06/01/2015 07923 Removal Devitalization Tissue Wound Less Than Equal 20 Completed Square 05/25/2015 56184 Removal Devitalization Tissue Wound Less Than Equal 20 Completed Square CM 05/18/2015 49317 Removal Devitalization Tissue Wound Less Than Equal 20 Completed Square CM 05/11/2015 34727 Removal Devitalization Tissue Wound Less Than Equal 20 Completed Square CM 05/04/2015 99436 Removal Devitalization Tissue Wound Less Than Equal 20 Completed Square CM 12/29/2014 49575 Short Leg Cast Completed 12/17/2014 09447 Amputation Foot Transmetatarsal Completed 12/17/2014 47536 Amputation Foot Transmetatarsal Completed 01/14/2013 42290 EKG, Interpretation Only Completed Encounters Type Date Location Provider Dx Diagnosis Office Visit 07/03/2018 [facility] Beth Clemons, R55 Syncope and 2:08p Of Real Chavez collapse R41.82 Altered mental status, unspecified I35.0 Nonrheumatic aortic (valve) stenosis I25.10 Athscl heart disease of [place] coronary artery w/o ang pctrs N18.6 End stage renal disease Z99.2 Dependence on renal dialysis E87.6 Hypokalemia I42.9 Cardiomyopathy, unspecified I10 Essential (primary) hypertension Office Visit 06/28/2018 [facility] Josy Mosquera M86.9 Osteomyelitis , 11:00a For Infectious Vahid MANAGER BACKGROUND unspecified Diseases R94.5 Abnormal results of liver function studies E11.621 Type 2 diabetes mellitus with foot ulcer L97.519 Non-prs chronic ulcer oth prt right foot w unsp severity E11.69 Type 2 diabetes mellitus with other specified complication Office Visit 06/17/2018 [facility] M86.271 Subacute 2:11p Services Of VANDANA Doss osteomyelitis, right C.M.A. ankle and foot Office Visit 06/17/2018 [facility] Ector Spencer B17.9 Acute viral 10:41a For Infectious [place], hepatitis, Diseases M.DJoey unspecified E11.69 Type 2 diabetes mellitus with other specified complication M86.9 Osteomyelitis, unspecified E11.22 Type 2 diabetes mellitus w diabetic chronic kidney disease N18.6 End stage renal disease Office Visit 06/17/2018 8:45a [facility] Darrick Esposito R94.5 Abnormal Assoc,manuel Paul MD results of Hospitalists liver function studies G93.40 Encephalopathy, unspecified M86.679 Other chronic osteomyelitis, unspecified ankle and foot N18.6 End stage renal disease Z99.2 Dependence on renal dialysis [facility] K72.00 Acute and Assoc,manuel Paul MD subacute Hospitalists hepatic failure without coma G93.41 Metabolic encephalopathy R94.5 Abnormal results of liver function studies M86.671 Other chronic osteomyelitis, right ankle and foot D69.6 Thrombocytopenia, unspecified N18.6 End stage renal disease R19.7 Diarrhea, unspecified Z99.2 Dependence on renal dialysis Office Visit 06/15/2018 8[facility] K72.00 Acute and Assoc,manuel Paul MD subacute Hospitalists hepatic failure without coma G93.41 Metabolic encephalopathy E87.8 Oth disorders of electrolyte and fluid balance, NEC M86.671 Other chronic osteomyelitis, right ankle and foot D69.6 Thrombocytopenia, unspecified N18.6 End stage renal disease R19.7 Diarrhea, unspecified R94.5 Abnormal results of liver function studies [facility]9 Acute viral Infectious Kathy Mcwilliams hepatitis, Diseases unspecified E11.22 Type 2 diabetes mellitus w diabetic chronic kidney disease N18.6 End stage renal disease E11.69 Type 2 diabetes mellitus with other specified complication M86.9 Osteomyelitis, unspecified Office Visit 06/14/2018 [facility] M86.671 Other chronic 8:44a Assmanuel alvarez M.D. osteomyelitis, Hospitalists right ankle and foot D69.6 Thrombocytopenia, unspecified K72.00 Acute and subacute hepatic failure without coma G93.41 Metabolic encephalopathy R19.7 Diarrhea, unspecified N18.6 End stage renal disease Z99.2 Dependence on renal dialysis Office Visit 06/13/2018 [facility] M86.271 Subacute 8:43a manuel Sosa M.D. osteomyelitis, Hospitalists right ankle and foot E11.621 Type 2 diabetes mellitus with foot ulcer L97.519 Non-prs chronic ulcer oth prt right foot w unsp severity K72.00 Acute and subacute hepatic failure without coma G93.41 Metabolic encephalopathy N18.6 End stage renal disease Z99.2 Dependence on renal dialysis R19.7 Diarrhea, unspecified Office Visit 06/13/2018 9:47a [facility] El Spencer B17.9 Acute viral Infectious Kathy Mcwilliams hepatitis, Diseases unspecified E11.22 Type 2 diabetes mellitus w diabetic chronic kidney disease N18.6 End stage renal disease Office Visit 06/12/2018 [facility] Philly M86.271 Subacute 8:43a Assoc,manuel Miller M.D. osteomyelitis, Hospitalists right ankle and foot G93.41 Metabolic encephalopathy R19.7 Diarrhea, unspecified N18.6 End stage renal disease Z99.2 Dependence on renal dialysis Office Visit 06/11/2018 8:42a [facility] Philly Miller, K72.00 Acute and Assocmanuel M.D. subacute Hospitalists hepatic failure without coma G93.41 Metabolic encephalopathy R19.7 Diarrhea, unspecified R79.89 Other specified abnormal findings of blood chemistry N18.6 End stage renal disease Office Visit 06/10/2018 9:42a [facility] El Spencer B17.9 Acute viral Infectious Kathy Mcwilliams hepatitis, Diseases unspecified R19.7 Diarrhea, unspecified E11.40 Type 2 diabetes mellitus with diabetic neuropathy, unsp E11.22 Type 2 diabetes mellitus w diabetic chronic kidney disease N18.6 End stage renal disease R79.1 Abnormal coagulation profile Office Visit 06/10/2018 8:42a [facility] Philly Miller, I12.0 Hyp chr kidney Assocmanuel M.D. disease w Hospitalists stage 5 chr kidney disease or Esrd N18.6 End stage renal disease Z99.2 Dependence on renal dialysis R74.8 Abnormal levels of other serum enzymes R11.10 Vomiting, unspecified R19.7 Diarrhea, unspecified R79.89 Other specified abnormal findings of blood chemistry R41.82 Altered mental status, unspecified Office Visit 06/09/2018 8:41a [facility] Zain K72.00 Acute and Assoc,manuel Mcghee M.D. subacute Hospitalists hepatic failure without coma I12.0 Hyp chr kidney disease w stage 5 chr kidney disease or Esrd Z99.2 Dependence on renal dialysis R50.9 Fever, unspecified R79.89 Other specified abnormal findings of blood chemistry R41.82 Altered mental status, unspecified R19.7 Diarrhea, unspecified Office Visit 06/08/2018 8:41a [facility] K72.00 Acute and Assoc,manuel Mcghee M.D. subacute Hospitalists hepatic failure without coma R50.9 Fever, unspecified I12.0 Hyp chr kidney disease w stage 5 chr kidney disease or Esrd N18.6 End stage renal disease Z99.2 Dependence on renal dialysis R79.89 Other specified abnormal findings of blood chemistry R41.82 Altered mental status, unspecified R19.7 Diarrhea, unspecified Office Visit 06/07/2018 8:40a [facility] K72.00 Acute and Assoc,manuel Mcghee M.D. subacute Hospitalists hepatic failure without coma R50.9 Fever, unspecified I12.0 Hyp chr kidney disease w stage 5 chr kidney disease or Esrd Z99.2 Dependence on renal dialysis N18.6 End stage renal disease R41.82 Altered mental status, unspecified Office Visit 06/07/2018 10:45a [facility] Giovany Casas89.893 [place] [facility] other [place], stage 3 E11.621 Type 2 diabetes mellitus with foot ulcer M86.271 Subacute osteomyelitis, right ankle and foot I73.9 Peripheral vascular disease, unspecified N18.6 End stage renal disease R09.89 Oth symptoms and signs involving the circ and resp systems M21.6x1 Other acquired deformities of right foot Office Visit 05/31/2018 [facility] Ector Spencer M86.271 Subacute 10:50a For Infectious Kathy Mcwilliams osteomyelitis, Diseases right ankle and foot E11.40 Type 2 diabetes mellitus with diabetic neuropathy, unsp R19.7 Diarrhea, unspecified T36.0x5A Adverse effect of penicillins, initial encounter Office Visit 05/24/2018 10:45a Wound Care Giovany Casas89.893 Pressure ulcer [facility] FACS of other site, stage 3 E11.621 Type 2 diabetes mellitus with foot ulcer M86.271 Subacute osteomyelitis, right ankle and foot I73.9 Peripheral vascular disease, unspecified N18.6 End stage renal disease R09.89 Oth symptoms and signs involving the circ and resp systems M21.6x1 Other acquired deformities of right foot Office Visit 05/17/2018 [facility] Ector Spencer M86.271 Subacute 10:50a For Infectious Kathy Mcwilliams osteomyelitis, Diseases right ankle and foot E11.621 Type 2 diabetes mellitus with foot ulcer N18.6 End stage renal disease I73.9 Peripheral vascular disease, unspecified E11.69 Type 2 diabetes mellitus with other specified complication L97.519 Non-prs chronic ulcer oth prt right foot w unsp severity Office Visit 05/03/2018 11:30a [facility] Care Giovany Casas89.893 Pressure ulcer [place] [facility] [place] of other site, stage 3 E11.621 Type 2 diabetes mellitus with foot ulcer M86.271 Subacute osteomyelitis, right ankle and foot I73.9 Peripheral vascular disease, unspecified N18.6 End stage renal disease R09.89 Oth symptoms and signs involving the circ and resp systems M21.6x1 Other acquired deformities of right foot Office Visit 04/26/2018 11:00a Wound Care Giovany Casas89.893 Pressure ulcer Center AT [facility] [place] FACS of other site, stage 3 E11.621 Type 2 diabetes mellitus with foot ulcer I73.9 Peripheral vascular disease, unspecified N18.6 End stage renal disease R09.89 Oth symptoms and signs involving the circ and resp systems M21.6x1 Other acquired deformities of right foot Office Visit 01/04/2018 [facility] [place] Fitz Bermudez E11.621 Type 2 diabetes 8:00a [place] [facility] [place] Carolyn, mellitus with FACS foot ulcer Office Visit 05/18/2017 [place] Phillip Page96.01 Acute respiratory 8:39a Assoc,manuel Rawls M.D. failure with Hospitalists hypoxia S91.302A Unspecified open wound, left foot, initial encounter E11.8 Type 2 diabetes mellitus with unspecified complications I10 Essential (primary) hypertension Office Visit 05/17/2017 8:37a [place] Phillip Page96.01 Acute respiratory Assocmanuel M.D. failure with Hospitalists hypoxia S91.302A Unspecified open wound, left foot, initial encounter E11.8 Type 2 diabetes mellitus with unspecified complications I10 Essential (primary) hypertension Office Visit 05/16/2017 8:34a [facility] Adrián Page96.01 Acute respiratory Assocmanuel M.D. failure with Hospitalists hypoxia S91.302A Unspecified open wound, left foot, initial encounter E11.8 Type 2 diabetes mellitus with unspecified complications I10 Essential (primary) hypertension Office Visit 05/15/2017 8:33a [facility] Adrián J96.01 Acute respiratory Assoc,manuel Rawls M.D. failure with Hospitalists hypoxia S91.302A Unspecified open wound, left foot, initial encounter E11.8 Type 2 diabetes mellitus with unspecified complications I10 Essential (primary) hypertension Office Visit 05/14/2017 [facility] Philly Miller J96.01 Acute respiratory 8:32a manuel Sosa M.D. failure with Hospitalists hypoxia S91.302A Unspecified open wound, left foot, initial encounter E11.8 Type 2 diabetes mellitus with unspecified complications I10 Essential (primary) hypertension Office Visit 05/13/2017 [facility] Philly Miller J96.01 Acute respiratory 8:24a manuel Sosa M.D. failure with Hospitalists hypoxia S91.302A Unspecified open wound, left foot, initial encounter E11.8 Type 2 diabetes mellitus with unspecified complications I10 Essential (primary) hypertension Office Visit 05/12/2017 [facility] Philly Miller, J96.01 Acute respiratory 8:21a manuel Sosa M.D. failure with Hospitalists hypoxia S91.302A Unspecified open wound, left foot, initial encounter E11.8 Type 2 diabetes mellitus with unspecified complications I10 Essential (primary) hypertension Office Visit 05/11/2017 [facility] Philly Miller J96.01 Acute respiratory 8:20a manuel Sosa M.D. failure with Hospitalists hypoxia S91.302A Unspecified open wound, left foot, initial encounter E11.8 Type 2 diabetes mellitus with unspecified complications I10 Essential (primary) hypertension Office Visit 05/10/2017 [facility] Philly Miller, J96.01 Acute respiratory 8:19a [...] left ankle and foot Office Visit 05/09/2017 [facility] Chema Dueks, J96.01 Acute respiratory 8:18a Assmanuel alvarez MD failure with Hospitalists hypoxia S91.302A Unspecified open wound, left foot, initial encounter E11.8 Type 2 diabetes mellitus with unspecified complications I10 Essential (primary) hypertension Office Visit 05/08/2017 8:08a [facility] Chema Dukes J96.01 Acute respiratory Assmanuel alvarez MD failure with Hospitalists hypoxia S91.302A Unspecified open wound, left foot, initial encounter E11.8 Type 2 diabetes mellitus with unspecified complications I10 Essential (primary) hypertension Office Visit 05/07/2017 7:56a [facility] Chema Dukes J96.01 Acute respiratory Assmanuel alvarez MD failure with Hospitalists hypoxia S91.302A Unspecified open wound, left foot, initial encounter E11.8 Type 2 diabetes mellitus with unspecified complications I10 Essential (primary) hypertension Office Visit 04/25/2017 [facility] Philly Miller J96.01 Acute respiratory 10:09a manuel Sosa M.D. failure with Hospitalists hypoxia S91.302A Unspecified open wound, left foot, initial encounter E11.8 Type 2 diabetes mellitus with unspecified complications I10 Essential (primary) hypertension Office Visit 04/24/2017 [facility] Philly Miller J96.01 Acute respiratory 10:08a manuel Sosa M.D. failure with Hospitalists hypoxia S91.302A Unspecified open wound, left foot, initial encounter E11.8 Type 2 diabetes mellitus with unspecified complications I10 Essential (primary) hypertension Office Visit 04/23/2017 [facility] Josy Mosquera J96.01 Acute 10:06a Assocmanuel NP respiratory Hospitalists failure with hypoxia S91.302A Unspecified open wound, left foot, initial encounter E11.8 Type 2 diabetes mellitus with unspecified complications I10 Essential (primary) hypertension Office Visit 03/30/2017 2:30p Cardiology William Rocky I34.0 Nonrheumatic mitral Services Of Real Chavez M.D., (valve) AT [facility], FASNC insufficiency I10 Essential (primary) hypertension Z01.810 Encounter for preprocedural cardiovascular examination M86.672 Other chronic osteomyelitis, left ankle and foot Office Visit 02/21/2017 [facility] Ector Spencer E10.69 Type 1 diabetes 2:05p For Infectious Kathy Mcwilliams mellitus with Diseases other specified complication 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 E11.621 Type 2 Assoc,pc Ignacio, N.P. diabetes Hospitalists mellitus with foot ulcer N18.6 End stage renal disease E11.8 Type 2 diabetes mellitus with unspecified complications I10 Essential (primary) hypertension Office Visit 02/20/2017 7:21a [facility] [place] S. E11.621 Type 2 Assoc,pc Ignacio, N.P. diabetes Hospitalists mellitus with foot ulcer E11.8 Type 2 diabetes mellitus with unspecified complications N18.6 End stage renal disease I10 Essential (primary) hypertension Office Visit 02/19/2017 7:21a [facility] [place] S. N18.6 End stage Assoc,manuel Pierre N.P. renal disease Hospitalists E11.621 Type 2 diabetes mellitus with foot ulcer E11.8 Type 2 diabetes mellitus with unspecified complications I10 Essential (primary) hypertension Office Visit 02/18/2017 7:20a [facility] Philly Miller, N18.6 End stage Assocmanuel M.D. renal disease Hospitalists E11.621 Type 2 diabetes mellitus with foot ulcer E11.8 Type 2 diabetes mellitus with unspecified complications I10 Essential (primary) hypertension Office Visit 02/18/2017 9:37a [facility] Adrián I96 Gangrene, not Of Isabel Louis M.D. elsewhere classified Office Visit 02/17/2017 7:19a [facility] Julius N18.6 End stage renal Assoc,manuel Avila N.P. disease Hospitalists E11.621 Type 2 diabetes mellitus with foot ulcer E11.8 Type 2 diabetes mellitus with unspecified complications I10 Essential (primary) hypertension Office Visit 01/30/2017 7:34a [place] Phillip Centeno R07.9 Chest pain, Assoc,manuel Monaco M.D. unspecified Hospitalists I50.9 Heart failure, unspecified N18.6 End stage renal disease Z99.2 Dependence on renal dialysis Office Visit 2017 8:03a [place] Phillip Adrián N17.9 Acute kidney Assoc,manuel Rawls M.D. failure, Hospitalists unspecified E87.5 Hyperkalemia N18.5 Chronic kidney disease, stage 5 E83.39 Other disorders of phosphorus metabolism Office Visit 01/23/2017 8:02a [place] Adrián N17.9 Acute kidney Assocmanuel M.D. failure, Hospitalists unspecified E87.5 Hyperkalemia E83.39 Other disorders of phosphorus metabolism N18.5 Chronic kidney disease, stage 5 Office Visit 01/22/2017 8:00a [place] Phillip Adrián N17.9 Acute kidney Assoc,manuel Rawls M.D. failure, Hospitalists unspecified E87.5 Hyperkalemia E83.39 Other disorders of phosphorus metabolism N18.5 Chronic kidney disease, stage 5 Office Visit 01/21/2017 7:51a [place] Adrián N17.9 Acute kidney Assoc,manuel Rawls M.D. failure, Hospitalists unspecified E87.5 Hyperkalemia E83.39 Other disorders of phosphorus metabolism N18.5 Chronic kidney disease, stage 5 Office Visit 01/20/2017 7:50a [place] Phillip Adrián N17.9 Acute kidney Assocmanuel M.D. failure, Hospitalists unspecified N18.5 Chronic kidney disease, stage 5 E87.5 Hyperkalemia E83.39 Other disorders of phosphorus metabolism Office Visit 01/19/2017 [facility] Nitin Licea N17.9 Acute kidney 7:47a Assocmanuel II, M.D. failure, Hospitalists unspecified E87.5 Hyperkalemia N18.5 Chronic kidney disease, stage 5 E83.39 Other disorders of phosphorus metabolism Office Visit 08/26/2015 11:34a Wound Care Simba Chapa M10.079 Idiopathic gout , [facility] [place] Phillip unspecified ankle and foot E11.621 Type 2 diabetes mellitus with foot ulcer M86.671 Other chronic osteomyelitis, right ankle and foot L97.411 Non-prs chr ulcer of right heel and midft lmt to [facility] skin Office Visit 08/17/2015 2:24p Wound Care Simba Chapa M10.079 Idiopathic gout , [facility] Kathy Phillip unspecified ankle and foot E11.621 Type 2 diabetes mellitus with foot ulcer M86.671 Other chronic osteomyelitis, right ankle and foot Office Visit 08/10/2015 10:50a [facility] Ector Spencer Z89.421 Acquired Infectious Kathy Mcwilliams absence of Diseases other right toe(s) L97.519 Non-prs chronic ulcer oth prt right foot w unsp severity Office Visit 07/27/2015 9:30a 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 ankle and foot Office Visit 04/28/2015 [facility] Adrián Quevedo86.671 Other chronic 2:50p Services Of Kathy Louis osteomyelitis, right C.M.A. ankle and foot Office Visit 04/15/2015 Orthopedic Adrián Quevedo86.67Rayo Other chronic 11:15a Services Of Kathy Louis osteomyelitis, right C.M.A. ankle and foot Office Visit 01/11/2015 [facility] Ector Spencer M86.671 Other chronic 3:00p For Infectious [place], osteomyelitis, right Diseases Kathy ankle and foot E10.59 Type 1 diabetes mellitus with oth circulatory complications Z79.4 intermediate frame tender (current) use of insulin Z89.421 Acquired absence of other right toe(s) Office Visit 12/21/2014 [facility] Philly Miller, N17.9 Acute kidney 12:13p manuel Sosa M.D. failure, Hospitalists unspecified M86.9 Osteomyelitis, unspecified A41.9 Sepsis, unspecified organism E13.9 Other specified diabetes mellitus without complications Office Visit 12/20/2014 [facility] Philly M86.9 Osteomyelitis, 12:12p manuel Sosa M.D. unspecified Hospitalists A41.9 Sepsis, unspecified organism N17.9 Acute kidney failure, unspecified E13.9 Other specified diabetes mellitus without complications Office Visit 12/19/2014 [facility] Philly M86.9 Osteomyelitis, 12:12p manuel Sosa M.D. unspecified Hospitalists A41.9 Sepsis, unspecified organism N17.9 Acute kidney failure, unspecified E13.9 Other specified diabetes mellitus without complications Office Visit 12/18/2014 [facility] Philly Miller, N17.9 Acute kidney 12:11p manuel Sosa M.D. failure, Hospitalists unspecified M76.9 Unspecified enthesopathy, lower limb, excluding foot A41.9 Sepsis, unspecified organism E13.9 Other specified diabetes mellitus without complications Office Visit 12/17/2014 7:52a [facility] El Spencer E11.52 Type 2 diabetes Infectious Kathy Mcwilliams w diabetic Diseases peripheral angiopathy w gangrene L03.115 Cellulitis of right lower limb E11.69 Type 2 diabetes mellitus with other specified complication M86.671 Other chronic osteomyelitis, right ankle and foot R09.89 Ot symptoms and signs involving the circ and resp systems E11.22 Type 2 diabetes mellitus w diabetic chronic kidney disease E11.40 Type 2 diabetes mellitus with diabetic neuropathy, unsp N18.3 Chronic kidney disease, stage 3 (moderate) Office Visit 12/17/2014 [facility] Philly M86.9 Osteomyelitis, 12:10p manuel Sosa M.D. unspecified Hospitalists A41.9 Sepsis, unspecified organism N17.9 Acute kidney failure, unspecified E13.9 Other specified diabetes mellitus without complications Office Visit 12/16/2014 [facility] Dara M86.9 Osteomyelitis, 7:00a Services Of Isabel Vergara M.D. unspecified Office Visit 12/16/2014 [facility] [place] LairdJoey M86.9 Osteomyelitis, 12:08p Assoc,manuel Pierre N.P. unspecified Hospitalists A41.9 Sepsis, unspecified organism N17.9 Acute kidney failure, unspecified E13.9 Other specified diabetes mellitus without complications Office Visit 03/18/2013 [facility] Ector Spencer 681.10 Cellulitis & 9:30a For Infectious Kathy Mcwilliams Abscess Toe Unspec Diseases Office Visit 02/25/2013 [facility] Ector Spencer 730.00 Osteomyelitis Acute 9:30a For Infectious Kathy cMwilliams Site Unspec Diseases 681.10 Cellulitis & Abscess Toe Unspec Office Visit 02/04/2013 [facility] Ector Spencer 730.00 Osteomyelitis Acute 9:30a For Infectious Kathy Mcwilliams Site Unspec Diseases 588.9 Renal Function Impairment Disorders Unspec Office Visit 2013 11:06a [facility] Taryn 681.10 Cellulitis & Assoc,manuel Monaco M.D. Abscess Toe Hospitalists Unspec 730.00 Osteomyelitis Acute Site Unspec 250.02 Diabetes Mellitus W/O Compl Type II Or Unspec Type Uncontrol 584.5 Acute Kidney Failure With Lesion Of Tubular Necrosis Office Visit 01/23/2013 11:06a [facility] Taryn 681.10 Cellulitis & Assoc,manuel Monaco M.D. Abscess Toe Hospitalists Unspec 250.02 Diabetes Mellitus W/O Compl Type II Or Unspec Type Uncontrol 584.5 Acute Kidney Failure With Lesion Of Tubular Necrosis Office Visit 01/22/2013 11:06a [facility] Taryn 681.10 Cellulitis & Assoc,manuel Monaco M.D. Abscess Toe Hospitalists Unspec 250.02 Diabetes Mellitus W/O Compl Type II Or Unspec Type Uncontrol 584.5 Acute Kidney Failure With Lesion Of Tubular Necrosis [facility] Cellulitis & Assoc,manuel Monaco M.D. Abscess Toe Hospitalists Unspec 250.02 Diabetes Mellitus W/O Compl Type II Or Unspec Type Uncontrol Office Visit 01/21/2013 [facility] El Spencer 730.27 Osteomyelitis 9:16a Gregorio Mcwilliams M.D. Unspec Ankle & Diseases Foot Office Visit 01/20/2013 [facility] 681.10 Cellulitis & 11:05a manuel Sosa M.D. Abscess Toe Unspec Hospitalists 250.02 Diabetes Mellitus W/O Compl Type II Or Unspec Type Uncontrol 584.5 Acute Kidney Failure With Lesion Of Tubular [facility]ecrosis [facility] Cellulitis & 11:05a manuel Sosa M.D. Abscess Toe Hospitalists Unspec 250.02 Diabetes Mellitus W/O Compl Type II Or Unspec Type Uncontrol 584.5 Acute Kidney Failure With Lesion Of Tubular Necrosis Office Visit 01/18/2013 [facility] Angela, 681.10 Cellulitis & 11:04a manuel Sosa M.D. Abscess Toe Hospitalists Unspec 250.02 Diabetes Mellitus W/O Compl Type II Or Unspec Type Uncontrol 584.5 Acute Kidney Failure With Lesion Of Tubular Necrosis Office Visit 01/17/2013 11:04a [facility] [place] Tsang 681.10 Cellulitis & Assoc,manuel Pierre NBelem Abscess Toe Hospitalists Unspec 250.02 Diabetes Mellitus W/O Compl Type II Or Unspec Type Uncontrol 584.5 Acute Kidney Failure With Lesion Of Tubular Necrosis [facility]84.5 Acute Kidney Assmanuel alvarez M.D. Failure With Hospitalists Lesion Of Tubular Necrosis 681.10 Cellulitis & Abscess Toe Unspec 250.02 Diabetes Mellitus W/O Compl Type II Or Unspec Type Uncontrol Office Visit 01/16/2013 [facility] El Spencer 730.27 Osteomyelitis 2:16p Gregorio Mcwilliams M.D. Unspec Ankle & Diseases Foot Office Visit 01/15/2013 [facility] 584.5 Acute Kidney 11:03a Assmanuel alvarez M.D. Failure With Hospitalists Lesion Of Tubular Necrosis 681.10 Cellulitis & Abscess Toe Unspec 250.02 Diabetes Mellitus W/O Compl Type II Or Unspec Type Uncontrol 995.92 Severe Sepsis Office Visit 01/15/2013 [facility] El Spencer 730.27 Osteomyelitis 12:10jonh Mcwilliams M.D. Unspec Ankle & Diseases Foot Office Visit 01/14/2013 [facility] 995.92 Severe Sepsis 11:03a manuel Sosa M.D. Hospitalists 681.10 Cellulitis & Abscess Toe Unspec 250.02 Diabetes Mellitus W/O Compl Type II Or Unspec Type Uncontrol 584.5 Acute Kidney Failure With Lesion Of Tubular Necrosis Office Visit 01/13/2013 11:02a [facility] Angela, 995.92 Severe Sepsis manuel Sosa M.D. Hospitalists 681.10 Cellulitis & Abscess Toe Unspec 250.02 Diabetes Mellitus W/O Compl Type II Or Unspec Type Uncontrol 584.5 Acute Kidney Failure With Lesion Of Tubular Necrosis Office Visit 06/06/2009 12:15a [facility] 250.00 Diabetes manuel Sosa M.D. Mellitus W/O Hospitalists Compl Type II Or Unspec Controlled 730.20 Osteomyelitis Unspec Site Unspec 401.9 Hypertension Unspec Office Visit 06/05/2009 12:15a [facility] 250.00 Diabetes manuel Sosa M.D. Mellitus W/O Hospitalists Compl Type II Or Unspec Controlled Office Visit 06/04/2009 12:15a [facility] 250.00 Diabetes manuel Sosa M.D. Mellitus W/O Hospitalists Compl Type II Or Unspec Controlled 593.9 Kidney & Ureter Disorders Unspec Office Visit 06/02/2009 [facility], 730.20 Osteomyelitis 12:15a manuel Sosa M.D. Unspec Site Unspec Hospitalists 250.00 Diabetes Mellitus W/O Compl Type II Or Unspec Controlled Office Visit 06/01/2009 [facility] Alfredo, 730.20 Osteomyelitis 12:15a manuel Sosa M.D. Unspec Site Unspec Hospitalists [facility]elitis 4:00a manuel Sosa M.D. Unspec Site Unspec Hospitalists Plan of Treatment Future Appointment(s):07/12/2018 3:30 pm - Garry Javed MD at [facility] Kxklawwdhbcetnml09/06/2019 1:30 pm - Bradley Dyson MD at [facility]07/24/2018 1:00 pm - Josy Redding NP at [facility] For Infectious Cfiaomqu69/08/2019 11:30 am - William Chavez M.D., [facility] at [facility]07/08/2018 - Garry Javed MDE11.52 Type 2 diabetes w diabetic peripheral angiopathy w vsukeutyB51.6 End stage renal lojoprmI82 Essential (primary) njgnmvwncopjI28.90 Hepatic failure, unspecified without comaM86.271 Subacute osteomyelitis, right ankle and foot
--- OUTSIDE RECORDS SUMMARY | 2018-08-07 12:12 | XMS REPORT | Continuity of Care Document ---
:1965 External Reference #:[id number] Author Name Ta Baxter D.O. Address [address] [place] [id number] Care Team Providers Name Role Phone HCP given Primary Care Physician Unavailable Payers Date Identification Numbers Payment Provider Subscriber Effective: Policy Number: Zia Singletary 2017 [id number] Ind/Ppo/Hmo/Pos PayID: [id number] [address] [address] [place] [address] Effective: 1999 Policy Number: [facility] Katy Singletary [id number] PayID: [id number] [address] [place] [address] Advance Directives Description No Information Available Problems [...] History Date Family Member(s) Observation Comments Father PR Mother due to Liver Cancer () Paternal Grandmother Diabetes, Nos Maternal Grandfather Heart Disease Maternal Grandfather due to Heart Disease () Maternal Uncles due to CAD () Social History Type Date Description Comments Sex Unknown Education High School Completed Marital Status 12/2016 Lives With Alone Has daughter, but she is working on her Masters' degree, down in [place], [place]. Occupation [employer] Work Status Not Currently Working disability 2017 Years Employed over 30 years 20 years spent working at [email or web address] 06/06/2018 Right-handed Tobacco Use Start: Unknown Denies [...] by Unknown 04/25/2017 - 325mg Tablets mouth [id number] as 06/17/2018 needed for pain otc Azithromycin [...] CPT Code Status Date Vaccine Lot # [id number] Given 06/06/2018 Shingrix Zoster (Shingles) Vaccine (HZV) [id number] Recomb,Subnit,Adjuvanted 29898 Given 06/06/2018 Prevnar 13 [id number] Given 12/19/2017 Shingrix Zoster (Shingles) Vaccine (HZV) [id number] Recomb,Subnit,Adjuvanted 67886 Given 12/19/2017 Adacel or Boostrix, TDaP [id number] Vital Signs Date Vital Result Comment 07/09/2018 [...] H/L Range Note Venous Blood Gas 07/01/2018 [facility] Venous Blood pH 7.47 High 7.32 -7.43 [phone] Venous Pco2 53 mmHg High 41-51 Venous Po2 55.0 mmHg High 35-45 Venous O2 Saturation 89.3 % High 70-80 Venous Blood Base Excess 12.7 mmol/L High 0.0-4.0 1 Venous Bicarbonate Hco3 34.6 mmol/L High 24-28 CBC Auto Diff 07/01/2018 [facility] White Blood Count 5.0 10^3/uL N 3.5-10.8 [phone] Red Blood Count 2.50 10^6/uL Low 4.18-5.48 [...] Cells % 0.1 Laboratory test finding 07/01/2018 [facility] Lactic Acid 1.6 mmol/L N 0.5-2.0 2 [phone] Calcium Ionized 0.92 mmol/L Low 1.16-1.32 Comp Metabolic Panel 07/01/2018 [facility] Sodium 135 mmol/L N 135- 145 [phone] Chloride 91 mmol/L Low 101-111 Co2 Carbon [...] mmol/L N 2-11 Laboratory test finding 07/01/2018 [facility] Magnesium 2.0 mg/dL N 1.9-2.7 [phone] Acetaminophen < 15 g/mL 5 Ammonia 45 mcmol/L N 16-53 C Reactive Protein 11.19 mg/L High <8.01 TSH (Thyroid Stim Horm) 1.23 mcIU/mL N 0.34-5.60 Troponin-I (TnI) 0.05 ng/mL High <0.04 6 CBC Auto Diff 07/01/2018 [facility] White Blood Count 5.8 10^3/uL N 3.5-10.8 [phone] Red Blood Count 2.12 10^6/uL Low 4.18-5.48 [...] Cells % 0.1 Comp Metabolic Panel 07/01/2018 [facility] Sodium 135 mmol/L N 135- 145 [phone] Chloride 92 mmol/L Low 101-111 Co2 Carbon [...] Egfr 20.0 >60 8 Laboratory test 07/01/2018 [facility] Magnesium 1.9 mg/dL N 1.9-2.7 finding [phone] CBC Auto Diff 06/28/2018 [facility] White Blood 8.7 10^3/uL N 3.5- 10.8 [phone] Count Red Blood Count 2.50 10^6/uL Low [...] Cells % 0 Hepatitis C Antibody 06/28/2018 [facility] HCV Index 0.1 Index [phone] Hepatitis C Antibody Nonreactive Nonreactive Lipid Profile (Trig/Chol/HDL) 06/28/2018 [facility] Triglycerides 100 mg/dL 9 [phone] Cholesterol 113 mg/dL 10 HDL Cholesterol 40.0 mg/dL 11 LDL Cholesterol 53 mg/dL 12 Laboratory test 06/07/2018 [facility] Rapid Influenza SEE RESULT 13 finding [phone] A B Antigen BELOW Rapid Influenza 06/07/2018 [facility] Influenza A NEGATIVE Negative 14 A & B Molecular [phone] Molecular Influenza B Molecular NEGATIVE Negative Laboratory test finding 06/07/2018 [facility] Acetaminophen < 15 g/ mL 15 [phone] Pediatric Blood Culture SEE RESULT BELOW 16 Urine Culture And 06/07/2018 [facility] Urine Culture SEE RESULT 17 Sensitivities [phone] BELOW Laboratory test finding 06/07/2018 [facility] Blood Culture SEE RESULT 18 [phone] BELOW Urinalysis Profile 06/07/2018 [facility] Urine Color Yellow [phone] Urine Appearance Cloudy Urine Specific [place] 1.009 Low 1.010-1.030 Urine pH 9.0 N [...] Cell Present Abnormal Absent Laboratory test 06/07/2018 [facility] Partial 34.0 seconds N 26.0- 36.3 finding [phone] Thrombo Time PTT Inr/Protime 06/07/2018 [facility] Inr 1.67 High 0.77-1.02 [phone] Laboratory test 06/07/2018 [facility] C Reactive 42.00 mg/L High < 8.01 finding [phone] Protein Troponin-I (TnI) 0.07 ng/mL High <0.04 19 Comp Metabolic Panel 06/07/2018 [facility] Sodium 138 mmol/L N 135- 145 [phone] Potassium 2.8 mmol/L Low 3.5-5.0 Chloride 93 [...] 14.0 >60 20 CBC Auto Diff 06/07/2018 [facility] White Blood Count 6.9 10^3/uL N 3.5-10.8 [phone] Red Blood Count 2.31 10^6/uL Low 4.18-5.48 [...] Blood Cells % 0.1 Laboratory test 06/07/2018 [facility] Lactic Acid 1.2 mmol/L N 0.5- 2.0 21 finding [phone] Laboratory test 06/06/2018 In House Hemoglobin A1c 5.5 finding Basic Metabolic 05/10/2018 [facility] Sodium 138 mmol/L N 135-145 Panel [phone] Potassium 2.9 mmol/L Low 3.5-5.0 Chloride 92 mmol/L Low 101-111 Co2 Carbon Dioxide 36 mmol/L High 22-32 Anion Gap 10 mmol/L N 2-11 Glucose 103 mg/dL High 70-100 Blood Urea Nitrogen 15 mg/dL N 6-24 Creatinine 4.01 mg/dL High 0.67-1.17 BUN/Creatinine Ratio 3.7 Low 8-20 Calcium 9.1 mg/dL N 8.6-10.3 Egfr Non- 15.7 >60 Egfr 19.0 >60 22 CBC Auto Diff 05/10/2018 [facility] White Blood Count 7.3 10^3/uL N 3.5-10.8 [phone] Red Blood Count 2.68 10^6/uL Low 4.00-5.40 [...] Blood Cells % 0 Laboratory test 05/10/2018 [facility] Partial 33.6 N 26.0-36.3 finding [phone] Thrombo Time seconds PTT Inr/Protime 05/10/2018 [facility] Inr 1.37 High 0.77-1.02 [phone] Laboratory test 03/29/2018 [facility] Tissue SEE RESULT 23, 24 finding [phone] Culture & BELOW Sensitiv Ua Inhouse 03/08/2018 In House Ua Glucose trace Ua Specific [place] 1.005 Ua Blood +2 Ua PH 8.5 Ua Protein +3 Laboratory test finding 03/08/2018 In House Culture Throat negative Culture Throat Rapid Screen negative Urine Culture And 01/16/2018 [facility] Urine Culture SEE RESULT 25 Sensitivities [phone] BELOW Comp Metabolic Panel 01/16/2018 [facility] Sodium 140 mmol/L N 135- 145 [phone] Potassium 3.2 mmol/L Low 3.5-5.0 Chloride 93 [...] Egfr 8.6 >60 26 Urine Microalbumin 01/16/2018 [facility] Urine Creatinine 114.23 mg/dL Random [phone] Ur Microalbumin (mg/L) > 1500.0 Urine Microalbumin/Creatinine 1313.1 High <31 Urinalysis Profile 01/16/2018 [facility] Urine Color Yellow [phone] Urine Appearance Cloudy Urine Specific [place] 1.010 N 1.010-1.030 Urine pH 9.0 N [...] Epithelial Cell Present Abnormal Absent Inr/Protime 01/16/2018 [facility] Inr 1.20 High 0.77-1.02 [phone] CBC Auto Diff 01/16/2018 [facility] White Blood 7.9 10^3/uL N 3.5- 10.8 [phone] Count Red Blood Count 2.95 10^6/uL Low [...] Blood Cells % 0 Laboratory test 01/16/2018 [facility] Hemoglobin A1c 5.3 % N 4.0-5.6 27 finding [phone] (Glyco HGB) Laboratory test 10/26/2017 In House Hemoglobin A1c 5.5 finding CBC Auto Diff 07/28/2017 [facility] White Blood Count 8.7 N 3.5-10.8 [phone] 10^3/uL Red Blood Count 3.68 10^6/uL Low [...] Blood Cells % 0 Laboratory test 07/28/2017 [facility] B-Type Natriuretic 39 pg/mL 28 finding [phone] Peptide BNP Comp Metabolic 07/28/2017 [facility] Sodium 134 mmol/L Low 139-14 Panel [phone] Potassium 3.2 mmol/L Low 3.5-5.0 Chloride [...] Egfr 14.4 >60 29 Laboratory test 07/28/2017 [facility] Troponin-I (TnI) 0.04 ng/mL High <0.04 30 finding [phone] TSH (Thyroid Stim Horm) 1.44 mcIU/mL N 0.34-5.60 Laboratory test 07/28/2017 [facility] Lactic Acid 1.9 mmol/L N 0.5- 2.0 31 finding [phone] Inr/Protime 07/28/2017 [facility] Inr 1.20 High 0.77-1.02 [phone] Laboratory test 07/28/2017 [facility] Troponin-I 0.03 ng/mL <0.04 finding [phone] (TnI) Type & Screen 05/21/2017 [facility] Patient Blood A Positive 32 [phone] Type Antibody Screen NEGATIVE Laboratory test 05/21/2017 [facility] Packed Cells SEE RESULTS 33 finding [phone] BELO <SEE NOTE> Laboratory test 05/07/2017 [facility] Lactic Acid 1.5 mmol/L N 0.5- 2.0 34 finding [phone] Laboratory test 05/01/2017 [facility] Surgical SEE RESULT 35 finding [phone] Interface Order BELOW Laboratory test 05/01/2017 [facility] Clotest SEE RESULT 36 finding [phone] BELOW Urinalysis 02/17/2017 [facility] Urine Color Straw Profile [phone] Urine Appearance Clear Urine Specific [place] 1.004 Low 1.010-1.030 Urine pH 9.0 N [...] Urine Bacteria Absent Absent Laboratory test 02/17/2017 [facility] Wound Culture/Sensi SEE RESULT 37 finding [phone] BELOW MRSA/S. aureus Ssti PCR SEE RESULT BELOW 38 Laboratory test 02/17/2017 [facility] Lactic Acid 0.9 mmol/L N 0.5- 2.0 39 finding [phone] Laboratory test 02/17/2017 [facility] Erythrocyte Sed 120 mm/Hr High 0-20 finding [phone] Rate Blood Culture SEE RESULT BELOW 40 CBC Auto Diff 02/17/2017 [facility] White Blood 11.8 10^3/uL High 3.5 -10.8 [phone] Count Red Blood Count 2.45 10^6/uL Low [...] Cells % 0 Laboratory test finding 02/17/2017 [facility] Uric Acid 3.1 mg/dL Low 4.4-7.6 [phone] C Reactive Protein 12.71 mg/L High < 5.00 41 Comp Metabolic Panel 02/17/2017 [facility] Sodium 135 mmol/L N 133- 145 [phone] Potassium 4.9 mmol/L N 3.5-5.0 Chloride 96 [...] Egfr 17.2 >60 42 Lipid Profile 02/15/2017 [facility] Triglycerides 121 mg/dL 43 (Trig/Chol/HDL) [phone] Cholesterol 126 mg/dL 44 HDL Cholesterol 43.4 mg/dL 45 LDL Cholesterol 58 mg/dL 46 Comp Metabolic Panel 02/15/2017 [facility] Sodium 138 mmol/L N 133- 145 [phone] Potassium 4.7 mmol/L N 3.5-5.0 Chloride 95 [...] 25.3 >60 47 CBC Auto Diff 02/15/2017 [facility] White Blood 11.5 10^3/uL High 3.5 -10.8 [phone] Count Red Blood Count 2.66 10^6/uL Low [...] Blood Cells % 0 Laboratory test 02/15/2017 [facility] TSH (Thyroid 3.28 mcIU/mL N 0.34-5.60 finding [phone] Stim Horm) Laboratory test 02/13/2017 In House Hemoglobin A1c 5.7 finding CBC Auto Diff 02/06/2017 [facility] White Blood 8.1 10^3/uL N 3.5- 10.8 [phone] Count Red Blood Count 2.48 10^6/uL Low [...] Cells % 0 Comp Metabolic Panel 02/06/2017 [facility] Sodium 137 mmol/L N 133- 145 [phone] Potassium 4.3 mmol/L N 3.5-5.0 Chloride 97 [...] 17.9 >60 48 Laboratory test finding 02/06/2017 [facility] Lipase 28 U/L N 11.0- 82.0 [phone] 1 Reference ranges based on room air. 2 [facility] Severe Sepsis and Septic Shock Management [...] dialysis) 4 Critical Result K:2.4 Called to [id number] at: 10:37:31 by:[id number] Read back by:[id number] 5 Therapeutic concentration: <50 ug/mL Toxic concentration: >120 ug/mL 6 Result TnIDx:0.05 Called to [id number] at: 19:01:43 by:[id number] Read back by: [id number] Troponin-I testing on Plasma Separator Tubes (PST) has a known false positive rate of 0.20-0.40%. All positive troponins reflex immediately to secondary confirmatory testing. Using the [employer] DxI 800 Access Immunoassay systems, the 99th percentile upper reference limit was demonstrated to be < 0.03 ng/mL. 7 Critical Result K:2.5 Called to [id number] at: 11:06:46 by:[id number] Read back by:[id number] 8 Because ethnic data is not always [...] [address]: Ellis Elise MD Acct: [id number] Unit: [id number] AGE: 53 Location: ED Re06/07/18 SEX: M Status: REG ER SPEC: [id number] ANGELES: 06/07/18-14[address] [facility] [address]: Ellis Elise MD REQ: [id number] RECD: 06/07/18 STATUS: ROM OZUNA DR: Lety JARVIS _ SOURCE: NASAL SPDESC: ORDERED: Campbell A Mary Ellen Request Procedure Result Reported Site Rapid Influenza A B Request Final 06/07/18- 1529 ML Specimen received for Influenza A/B Molecular testing * ML - Main Lab . END OF REPORT DEPARTMENT OF PATHOLOGY, [address] [place] [address] Juan Deleon M.D. Director [facility] # [id number] 14 Rn Military: [id number] Therapeutic concentration: <50 ug/mL Toxic concentration: >120 ug/mL 16 SEE RESULT BELOW Name: KATY SINGLETARY : [address]: Philly Miller MD Acct: [id number] Unit: [id number] AGE: 53 Location: [place] [address] Re06/07/18 SEX: M Status: ADM IN SPEC: [id number] ANGELES: 06/07/181446 [facility] DR: Ellis Elise MD REQ: [id number] RECD: 06/07/18 STATUS: ROM OZUNA DR: Lety Santamaria RPA-C _ SOURCE: BLOOD,VENO SPDESC: ORDERED: Blood Cult, Pediatric Bottl Procedure Result Reported Site Pediatric Blood Culture Final 06/12/181510 ML No Growth Day 5 * ML - Main Lab . END OF REPORT DEPARTMENT OF PATHOLOGY, [address] [place] [address] Juan Deleon M.D. Director [facility] # [id number] 17 SEE RESULT BELOW Name: KATY SINGLETARY : [address]: Jamal Mcghee MD Acct: [id number] Unit: [id number] AGE: 53 Location: [place] [address] Re06/07/18 SEX: M Status: ADM IN SPEC: [id number] ANGELES: 06/07/[address]: Ellis Elise MD REQ: [id number] RECD: 06/07/18 STATUS: ROM OZUNA DR: [facility] _ SOURCE: URINE SPDESC: ORDERED: Urine Culture Procedure Result Reported Site Urine Culture Final 06/09/18- 0916 ML No growth of clinically significant organisms * ML - Main Lab . END OF REPORT DEPARTMENT OF PATHOLOGY, [address] [place] [address] Juan Deleon M.D. Director [facility] # [id number] 18 SEE RESULT BELOW Name: YEISONKATY Donnell : [address]: Philly Miller MD Acct: [id number] Unit: [id number] AGE: 53 Location: [place] [address] Re06/07/18 SEX: M Status: ADM IN SPEC: [id number] ANGELES: 06/07/18-1500 [facility] [address]: Ellis Elise MD REQ: [id number] RECD: 06/07/18 STATUS: ROM OZUNA DR: Lety Santamaria [facility] _ SOURCE: BLOOD,VENO SPDESC: ORDERED: Blood Cult Procedure Result Reported Site Aerobic Culture Bottle Final 06/12/18- 1506 ML No Growth Day 5 Anaerobic Culture Bottle Final 06/12/18- 1506 ML No Growth Day 5 * ML - Main Lab . END OF REPORT DEPARTMENT OF PATHOLOGY, [address] [place] [address] Juan Deleon M.D. Director [facility] # [id number] 19 Result TnIDx:0.07 Called to [id number] at: 16:26:39 by:[id number] Read back by: [id number] Troponin-I testing on Plasma Separator Tubes (PST) [...] 5 Kidney failure <15 (or dialysis) 21 [facility] Severe Sepsis and Septic Shock Management [...] KATY SINGLETARY: [address]: Amparo Landis [employer] DEVEL[employer] Acct: [id number] Unit: [id number] AGE: 53 Location: WOUND Re03/29/18 SEX: M Status: REG REF SPEC: [id number] ANGELES: 03/29/181413 SUBM DR: Amparo Landis [employer] DEVELOPER REQ: [id number] RECD: 03/29/18 STATUS: ROM OZUNA DR: Lety [...] CONTINUED ON NEXT PAGE DEPARTMENT OF PATHOLOGY, [address] [place] [address] Juan Deleon M.D. Director [facility] # [id number] Patient: KATY SINGLETARY [id number] (Continued) Specimen: [id number] Collected: 03/29/18 Received: 03/29/18-942 (Continued) Procedure Result Reported Site Tissue Culture [...] . END OF REPORT DEPARTMENT OF PATHOLOGY, [address] [place] [address] Juan Deleon M.D. Director [facility] # [id number] 25 SEE RESULT BELOW Name: KATY SINGLETARY : [address]: Lety JARVIS Acct: [id number] Unit: [id number] AGE: 52 Location: [facility] Re01/16/18 SEX: M Status: REG REF SPEC: [id number] ANGELES: 01/16/[address]: Lety JARVIS REQ: [id number] RECD: 01/16/18 STATUS: ROM OZUNA DR: Scott Boyd MD _ SOURCE: URINE SPDESC: ORDERED: Urine Culture Procedure Result Reported Site Urine Culture Final 01/17/18- 1525 ML Organism 1 STREP GROUP B [place] Count 1-10,000 (Few) CFU/ML Susceptibility testing of penicillins and other B-lactams approved by FDA for treatment of Streptococcus pyogenes (Group A Strep) and Streptococcus agalactiae (Group B Strep) is not necessary for clinical purposes and need not be done routinely, since as with vancomycin, resistant strains have not been recognized. (CLSI K767-N02;p.66) Positive isolates will be saved for one week. Please call the Microbiology Laboratory if further susceptibility testing is needed. * ML - Main Lab . END OF REPORT DEPARTMENT OF PATHOLOGY, [address] [place] [address] Juan Deleon M.D. Director [facility] # [id number] 26 Because ethnic data is not always [...] in selective patients <6.0%. Please refer to [place] [employer] diabetic care guidelines for further [...] (or dialysis) 30 Result TnIDx:0.04 Called to [id number] at: 17:43:09 by:[id number] Read back by: [email or web address] 31 [facility] Severe Sepsis and Septic Shock Management Bundle Measure requires all lactic acids initially measuring >2.0 mmol/L be repeated. 32 BLOOD WORK 33 SEE RESULTS BELOW [id number] AP PC TRANSFUSED 05/21/172000 34 [facility] Severe Sepsis and Septic Shock Management Bundle Measure requires all lactic acids initially measuring >2.0 mmol/L be repeated. 35 SEE RESULT BELOW Name: KATY SINGLETARY : [address]: Garry Javed MD Acct: [id number] Unit: [id number] AGE: 52 Location: [facility] Re05/01/17 SEX: M Status: DEP REF SPEC: [id number] ANGELES: 05/01/17- SUBM DR: Garry Javed MD REQ: [id number] RECD: 05/01/17 STATUS: CINTIA OZUNA DR: Lety Santamaria RPA-C Ktay Johnson MD _ ORDERED: LEVEL 4/3, IMMUNO-FIRST, [...] performed at Main Lab DEPARTMENT OF PATHOLOGY, [address] [place] [address] Juan Deleon M.D. Director [facility] # [id number] RUN DATE: 05/04/17 [facility] LAB LIVE PAGE 2 Patient: KATY SINGLETARY [id number] (Continued) CLINICAL HISTORY (Continued) CLINICAL HISTORY Anemia, [...] performed at Main Lab DEPARTMENT OF PATHOLOGY, [address] [place] [address] Juan Deleon M.D. Director [facility] # [id number] 36 SEE RESULT BELOW Name: KATY SINGLETARY : [address]: Garry Javed MD Acct: [id number] Unit: [id number] AGE: 52 Location: ENDO Re05/01/17 SEX: M Status: DEP REF SPEC: [id number] ANGELES: 05/01/17-1229 [facility] [address]: Garry Javed MD REQ: [id number] RECD: 05/03/17-8452 STATUS: ROM OZUNA DR: Lety JARVIS _ SOURCE: GAS ANTRUM SPDESC: ORDERED: Clotest Procedure Result Reported Site Clotest Final 05/04/17- 930 ML Clotest Negative * ML - MAIN LAB (PSC1) . END OF REPORT * ML=Testing performed at Main Lab DEPARTMENT OF PATHOLOGY, [address] [place] [address] Juan Deleon M.D. Director [facility] # [id number] 37 SEE RESULT BELOW Name: KATY SINGLETARY : [address]: Fermín Oscar MD Acct: [id number] Unit: [id number] AGE: 52 Location: ED Re02/17/17 SEX: M Status: REG ER SPEC: [id number] ANGELES: 02/17/[address]: Fermín Oscar MD REQ: [id number] RECD: 02/17/17 STATUS: RES SULMA DR: Lety Santamaria [facility]- _ SOURCE: FOOT,LEFT SPDESC: ORDERED: Culture Stain Procedure Result Reported Site Wound/Misc Gram Stain Final 02/17/17- 1902 ML 1+ Epithelial Cells 1+ Neutrophils 4+ Gram Positive Cocci in Clusters, resembling Staph 3+ Gram Negative Bacilli Wound/Misc Culture PENDING * ML - MAIN LAB ([facility]) . END OF REPORT * ML=Testing performed at Main Lab DEPARTMENT OF PATHOLOGY, [address] [place] [address] Juan Deleon M.D. Director [facility] # [id number] 38 SEE RESULT BELOW Name: KATY SINGLETARY Donnell : [address]: Philly Miller MD Acct: [id number] Unit: [id number] AGE: 52 Location: [facility] 341-02 Re02/17/17 SEX: M Status: ADM IN SPEC: [id number] ANGELES: 02/17/17 [facility] [address]: Fermín sOcar MD REQ: [id number] RECD: 02/17/17 STATUS: ROM OZUNA DR: Lety Santamaria [facility] _ SOURCE: FOOT,LEFT SPDESC: ORDERED: MRSA/SA SSTI, [...] performed at Main Lab DEPARTMENT OF PATHOLOGY, [address] [place] [address] Juan Deleon M.D. Director [facility] # [id number] Patient: KATY SINGLETARY [id number] (Continued) Specimen: [id number] Collected: 02/17/17 Received: 02/17/17 (Continued) Procedure Result Reported Site Wound/Misc Culture Final (continued) 02/20/171026 1. ENTEROCOCCUS FAECALIS (continued) M.I.C. RX --------- ------ * Streptomycin High Level S Tetracycline >=16 R Tigecycline <=0.12 S Vancomycin 1 S Imipenem-Deduced S * Ampicillin/Sulbactam-Deduced S * These antibiotics are not available in the [facility] Formulary Contact the Microbiology Department for any additional antibiotic reporting. * ML - MAIN LAB ([facility]) . END OF REPORT * ML=Testing performed at Main Lab DEPARTMENT OF PATHOLOGY, [address] [place] [address] Juan Deleon M.D. Director [facility] # [id number] [facility] Severe Sepsis and Septic Shock Management Bundle Measure requires all lactic acids initially measuring >2.0 mmol/L be repeated. 40 SEE RESULT BELOW Name: KATY SINGLETARY : [address]: Philly Miller MD Acct: [id number] Unit: [id number] AGE: 52 Location: [facility] 341-02 Re02/17/17 SEX: M Status: ADM IN SPEC: [id number] ANGELES: 02/17/17 [facility] [address]: Fermín Oscar MD REQ: [id number] RECD: 02/17/17 STATUS: RES [facility] DR: [facility] _ SOURCE: BLOOD,VENO SPDESC: ORDERED: Blood Cult Procedure Result Reported Site Aerobic Culture Bottle Preliminary 02/18/17- 1809 ML No Growth Day 1 Anaerobic Culture Bottle Preliminary 02/18/17- 1807 ML No Growth Day 1 * ML - MAIN LAB ([facility]) . END OF REPORT * ML=Testing performed at Main Lab DEPARTMENT OF PATHOLOGY, [address] [place] [address] Juan Deleon M.D. Director [facility] # [id number] 41 Acute inflammation: >10.00 42 Because ethnic [...] dialysis) Procedures Date Code Description Status 01/16/2018 71769 Brief Emotional/Behav Assessment W/ Scoring Doc Per Completed Standard Inst 01/02/2018 [id number] Diabetic Retinal Eye Exam Completed 05/01/2017 [id number] Colonoscopy Completed 03/12/2017 [id number] Diabetic Foot Exam Completed Encounters Type Date [...] am - Ta Baxter D.O. 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
--- OUTSIDE RECORDS SUMMARY | 2018-08-07 12:12 | XMS REPORT | Continuity of Care Document ---
:1965 External Reference #:[id number] Author Name Ta Baxter D.O. Address [address] [place] [id number] Care Team Providers Name Role Phone HCP given Primary Care Physician Unavailable Payers Date Identification Numbers Payment Provider Subscriber Effective: Policy Number: Zia Singletary 2017 [id number] Ind/Ppo/Hmo/Pos PayID: [id number] [address] [address] [place] [address] Effective: 1999 Policy Number: [facility] Katy Singletary [id number] PayID: [id number] [address] [place] [address] Advance Directives Description No Information Available Problems Active Problems Provider Date Type 2 diabetes mellitus Lety Santamaria PA Onset: 02/13/2017 Chronic kidney disease stage 4 Lety Santamaria PA Onset: 02/13/2017 Essential hypertension Lety Santamaria PA Onset: 02/13/2017 Anemia of chronic renal failure Lety Santamaria PA Onset: 02/13/2017 Cardiomegaly Lety Santamaria PA Onset: 02/13/2017 Gout Lety Santamaria PA Onset: 03/03/2017 Hyperlipidemia Ltey Santamaria PA Onset: 03/03/2017 Gastric ulcer Lety [...] History Date Family Member(s) Observation Comments Father [place] Mother due to Liver Cancer () Paternal Grandmother Diabetes, Nos Maternal Grandfather Heart Disease Maternal Grandfather due to Heart Disease () Maternal Uncles due to CAD () Social History Type Date Description Comments Sex Unknown Education High School Completed Marital Status 12/2016 Lives With Alone Has daughter, but she is working on her Masters' degree, down in [place], [place]. Occupation [employer] Work Status Not Currently Working disability 2017 Years Employed over 30 years 20 years spent working at [employer] 06/06/2018 Right-handed Tobacco Use Start: Unknown Denies [...] Date Provider Loperamide HCL take 1 tablet Unknown 07/05/2018 2mg after 2 stools and Capsules after each consequent stool, total of 3 tablets a day Metoprolol Tartrate 1 tablet by mouth Unknown 07/05/2018 twice daily 25mg Tablets Cinacalcet HCL Take 1 Tablets By Unknown 06/17/2018 60mg Mouth Every Day Tablets Oxycodone HCL Take 1 Tablet By 12tabs Unknown 06/17/2018 5mg Mouth Every 6 Tablets Hours as Needed For Pain. Maximum Daily Dose 4 Tablets. Xifaxan 1 by mouth twice 180tabs K72.00 Ta Baxter, 06/17/2018 550mg Tablets daily for 6 months D.O. Ferric Citrate 420 mg po tid Unknown [...] use as directed 1units Roman Villa, 12/19/2017 M.D. Misc Sertraline HCL 1.5 tabs by mouth [...] Unknown 06/17/2018 - Lactobacillus daily 07/05/2018 Capsules Metoprolol Tartrate 1 tablet by mouth Alex 04/12/2018 - twice daily MD Katy 07/05/2018 50mg Tablets Benzonatate 1-2 capsules three 45caps R05 Allen, 03/08/2018 - 100mg times a day as Kathy Owens 06/17/2018 Capsules needed, for nonproductive cough Hydrocodone-Acetamino Take One Tablet By 20tabs Allen, 03/08/2018 - phen Mouth Every 6 Hours Kathy Owens 06/17/2018 5-325mg Tablets as Needed For Cough Amoxicillin 1 tab by mouth 2 14tabs Allen, 01/17/2018 - 500mg times a day x 7 days Kathy Owens 03/07/2018 Tablets Potassium Chloride ER Take 1 Tablet By 30tabs Allen, 01/16/2018 - Mouth Every Day Kathy Owens 02/21/2018 10Meq Tablets ER Evaluate For The Evaluate and treat R41.3 Sahil, 12/14/2017 - Nursing Care & PT Cher Chappell 06/17/2018 E11.21 N18.6 Olopatadine HCL 1 drop in both eyes 5ml H53.8 Allen, 10/26/2017 - 0.1% daily Kathy Owens 03/07/2018 Solution Santyl apply 1 gm ointment 60gm E11.621 [facility] [place], 10/26/2017 - 250Unit/GM qd to wound for one Kathy Owens 03/07/2018 Ointment month or until wound has closed. Sertraline HCL start 1 tab in the 60tabs Allen, 10/26/2017 - 25mg morning, and if Kathy Owens 12/19/2017 Tablets tolerated, increase to 1 tab twice a day for anxiety and depression Metoprolol Tartrate take 1 tablet by 180tabs Allen, 06/12/2017 - mouth two times Kathy Owens 04/12/2018 25mg Tablets daily Ranitidine HCL Take 1 Capsule By 90capnazia Baxter, 06/12/2017 - 300mg Mouth Three Times Ta D.Wes 06/17/2018 Capsules Daily Gabapentin 1 every morning, 2 180caps Allen, 06/11/2017 - 100mg every night at Kathy Owens 06/17/2018 Capsules bedtime for pain and sleep Tylenol give 1 tablet by Unknown 04/25/2017 - 325mg Tablets mouth [id number] as 06/17/2018 needed for pain otc Azithromycin [...] Carbonate 3 tablets (1600 mg) 180tabs N18.6 Allen, 2017 - 3 times a day with Kathy Owens 06/17/2018 800mg Tablets meals, 2 tabs if pt has a snack. Aspirin Low Dose 1 by mouth every Unknown 2017 - 81mg day for heart 04/25/[address] michaud Nitroglycerin Unknown - 0.4mg 06/17/2018 Tablets Sub Immunizations CPT Code Status Date Vaccine Lot # [id number] Given 06/06/2018 Shingrix Zoster (Shingles) Vaccine (HZV) [id number] Recomb,Subnit,Adjuvanted [id number] Given 06/06/2018 Prevnar 13 [id number] Given 12/19/2017 Shingrix Zoster (Shingles) Vaccine (HZV) [id number] Recomb,Subnit,Adjuvanted [id number] Given 12/19/2017 Adacel or Boostrix, TDaP [id number] Vital Signs Date Vital Result Comment 07/09/2018 [...] H/L Range Note Venous Blood Gas 07/01/2018 [facility] Venous Blood pH 7.47 High 7.32 -7.43 [phone] Venous Pco2 53 mmHg High 41-51 Venous Po2 55.0 mmHg High 35-45 Venous O2 Saturation 89.3 % High 70-80 Venous Blood Base Excess 12.7 mmol/L High 0.0-4.0 1 Venous Bicarbonate Hco3 34.6 mmol/L High 24-28 CBC Auto Diff 07/01/2018 [facility] White Blood Count 5.0 10^3/uL N 3.5-10.8 [phone] Red Blood Count 2.50 10^6/uL Low 4.18-5.48 [...] Cells % 0.1 Laboratory test finding 07/01/2018 [facility] Lactic Acid 1.6 mmol/L N 0.5-2.0 2 [phone] Calcium Ionized 0.92 mmol/L Low 1.16-1.32 Comp Metabolic Panel 07/01/2018 [facility] Sodium 135 mmol/L N 135- 145 [phone] Chloride 91 mmol/L Low 101-111 Co2 Carbon [...] mmol/L N 2-11 Laboratory test finding 07/01/2018 [facility] Magnesium 2.0 mg/dL N 1.9-2.7 [phone] Acetaminophen < 15 g/mL 5 Ammonia 45 mcmol/L N 16-53 C Reactive Protein 11.19 mg/L High <8.01 TSH (Thyroid Stim Horm) 1.23 mcIU/mL N 0.34-5.60 Troponin-I (TnI) 0.05 ng/mL High <0.04 6 CBC Auto Diff 07/01/2018 [facility] White Blood Count 5.8 10^3/uL N 3.5-10.8 [phone] Red Blood Count 2.12 10^6/uL Low 4.18-5.48 [...] Cells % 0.1 Comp Metabolic Panel 07/01/2018 [facility] Sodium 135 mmol/L N 135- 145 [phone] Chloride 92 mmol/L Low 101-111 Co2 Carbon [...] Egfr 20.0 >60 8 Laboratory test 07/01/2018 [facility] Magnesium 1.9 mg/dL N 1.9-2.7 finding [phone] CBC Auto Diff 06/28/2018 [facility] White Blood 8.7 10^3/uL N 3.5- 10.8 [phone] Count Red Blood Count 2.50 10^6/uL Low [...] Cells % 0 Hepatitis C Antibody 06/28/2018 [facility] HCV Index 0.1 Index [phone] Hepatitis C Antibody Nonreactive Nonreactive Lipid Profile (Trig/Chol/HDL) 06/28/2018 [facility] Triglycerides 100 mg/dL 9 [phone] Cholesterol 113 mg/dL 10 HDL Cholesterol 40.0 mg/dL 11 LDL Cholesterol 53 mg/dL 12 Laboratory test 06/07/2018 [facility] Rapid Influenza SEE RESULT 13 finding [phone] A B Antigen BELOW Rapid Influenza 06/07/2018 [facility] Influenza A NEGATIVE Negative 14 A & B Molecular [phone] Molecular Influenza B Molecular NEGATIVE Negative Laboratory test finding 06/07/2018 [facility] Acetaminophen < 15 g/ mL 15 [phone] Pediatric Blood Culture SEE RESULT BELOW 16 Urine Culture And 06/07/2018 [facility] Urine Culture SEE RESULT 17 Sensitivities [phone] BELOW Laboratory test finding 06/07/2018 [facility] Blood Culture SEE RESULT 18 [phone] BELOW Urinalysis Profile 06/07/2018 [facility] Urine Color Yellow [phone] Urine Appearance Cloudy Urine Specific [place] 1.009 Low 1.010-1.030 Urine pH 9.0 N [...] Cell Present Abnormal Absent Laboratory test 06/07/2018 [facility] Partial 34.0 seconds N 26.0- 36.3 finding [phone] Thrombo Time PTT Inr/Protime 06/07/2018 [facility] Inr 1.67 High 0.77-1.02 [phone] Laboratory test 06/07/2018 [facility] C Reactive 42.00 mg/L High < 8.01 finding [phone] Protein Troponin-I (TnI) 0.07 ng/mL High <0.04 19 Comp Metabolic Panel 06/07/2018 [facility] Sodium 138 mmol/L N 135- 145 [phone] Potassium 2.8 mmol/L Low 3.5-5.0 Chloride 93 [...] 14.0 >60 20 CBC Auto Diff 06/07/2018 [facility] White Blood Count 6.9 10^3/uL N 3.5-10.8 [phone] Red Blood Count 2.31 10^6/uL Low 4.18-5.48 [...] Blood Cells % 0.1 Laboratory test 06/07/2018 [facility] Lactic Acid 1.2 mmol/L N 0.5- 2.0 21 finding [phone] Laboratory test 06/06/2018 In House Hemoglobin A1c 5.5 finding Basic Metabolic 05/10/2018 [facility] Sodium 138 mmol/L N 135-145 Panel [phone] Potassium 2.9 mmol/L Low 3.5-5.0 Chloride 92 mmol/L Low 101-111 Co2 Carbon Dioxide 36 mmol/L High 22-32 Anion Gap 10 mmol/L N 2-11 Glucose 103 mg/dL High 70-100 Blood Urea Nitrogen 15 mg/dL N 6-24 Creatinine 4.01 mg/dL High 0.67-1.17 BUN/Creatinine Ratio 3.7 Low 8-20 Calcium 9.1 mg/dL N 8.6-10.3 Egfr Non- 15.7 >60 Egfr 19.0 >60 22 CBC Auto Diff 05/10/2018 [facility] White Blood Count 7.3 10^3/uL N 3.5-10.8 [phone] Red Blood Count 2.68 10^6/uL Low 4.00-5.40 [...] Blood Cells % 0 Laboratory test 05/10/2018 [facility] Partial 33.6 N 26.0-36.3 finding [phone] Thrombo Time seconds PTT Inr/Protime 05/10/2018 [facility] Inr 1.37 High 0.77-1.02 [phone] Laboratory test 03/29/2018 [facility] Tissue SEE RESULT 23, 24 finding [phone] Culture & BELOW Sensitiv Ua Inhouse 03/08/2018 In House Ua Glucose trace Ua Specific [place] 1.005 Ua Blood +2 Ua PH 8.5 Ua Protein +3 Laboratory test finding 03/08/2018 In House Culture Throat negative Culture Throat Rapid Screen negative Urine Culture And 01/16/2018 [facility] Urine Culture SEE RESULT 25 Sensitivities [phone] BELOW Comp Metabolic Panel 01/16/2018 [facility] Sodium 140 mmol/L N 135- 145 [phone] Potassium 3.2 mmol/L Low 3.5-5.0 Chloride 93 [...] Egfr 8.6 >60 26 Urine Microalbumin 01/16/2018 [facility] Urine Creatinine 114.23 mg/dL Random [phone] Ur Microalbumin (mg/L) > 1500.0 Urine Microalbumin/Creatinine 1313.1 High <31 Urinalysis Profile 01/16/2018 [facility] Urine Color Yellow [phone] Urine Appearance Cloudy Urine Specific [place] 1.010 N 1.010-1.030 Urine pH 9.0 N [...] Epithelial Cell Present Abnormal Absent Inr/Protime 01/16/2018 [facility] Inr 1.20 High 0.77-1.02 [phone] CBC Auto Diff 01/16/2018 [facility] White Blood 7.9 10^3/uL N 3.5- 10.8 [phone] Count Red Blood Count 2.95 10^6/uL Low [...] Blood Cells % 0 Laboratory test 01/16/2018 [facility] Hemoglobin A1c 5.3 % N 4.0-5.6 27 finding [phone] (Glyco HGB) Laboratory test 10/26/2017 In House Hemoglobin A1c 5.5 finding CBC Auto Diff 07/28/2017 [facility] White Blood Count 8.7 N 3.5-10.8 [phone] 10^3/uL Red Blood Count 3.68 10^6/uL Low [...] Blood Cells % 0 Laboratory test 07/28/2017 [facility] B-Type Natriuretic 39 pg/mL 28 finding [phone] Peptide BNP Comp Metabolic 07/28/2017 [facility] Sodium 134 mmol/L Low 139-14 Panel [phone] Potassium 3.2 mmol/L Low 3.5-5.0 Chloride [...] Egfr 14.4 >60 29 Laboratory test 07/28/2017 [facility] Troponin-I (TnI) 0.04 ng/mL High <0.04 30 finding [phone] TSH (Thyroid Stim Horm) 1.44 mcIU/mL N 0.34-5.60 Laboratory test 07/28/2017 [facility] Lactic Acid 1.9 mmol/L N 0.5- 2.0 31 finding [phone] Inr/Protime 07/28/2017 [facility] Inr 1.20 High 0.77-1.02 [phone] Laboratory test 07/28/2017 [facility] Troponin-I 0.03 ng/mL <0.04 finding [phone] (TnI) Type & Screen 05/21/2017 [facility] Patient Blood A Positive 32 [phone] Type Antibody Screen NEGATIVE Laboratory test 05/21/2017 [facility] Packed Cells SEE RESULTS 33 finding [phone] BELO <SEE NOTE> Laboratory test 05/07/2017 [facility] Lactic Acid 1.5 mmol/L N 0.5- 2.0 34 finding [phone] Laboratory test 05/01/2017 [facility] Surgical SEE RESULT 35 finding [phone] Interface Order BELOW Laboratory test 05/01/2017 [facility] Clotest SEE RESULT 36 finding [phone] BELOW Urinalysis 02/17/2017 [facility] Urine Color Straw Profile [phone] Urine Appearance Clear Urine Specific [place] 1.004 Low 1.010-1.030 Urine pH 9.0 N [...] Urine Bacteria Absent Absent Laboratory test 02/17/2017 [facility] Wound Culture/Sensi SEE RESULT 37 finding [phone] BELOW MRSA/S. aureus Ssti PCR SEE RESULT BELOW 38 Laboratory test 02/17/2017 [facility] Lactic Acid 0.9 mmol/L N 0.5- 2.0 39 finding [phone] Laboratory test 02/17/2017 [facility] Erythrocyte Sed 120 mm/Hr High 0-20 finding [phone] Rate Blood Culture SEE RESULT BELOW 40 CBC Auto Diff 02/17/2017 [facility] White Blood 11.8 10^3/uL High 3.5 -10.8 [phone] Count Red Blood Count 2.45 10^6/uL Low [...] Cells % 0 Laboratory test finding 02/17/2017 [facility] Uric Acid 3.1 mg/dL Low 4.4-7.6 [phone] C Reactive Protein 12.71 mg/L High < 5.00 41 Comp Metabolic Panel 02/17/2017 [facility] Sodium 135 mmol/L N 133- 145 [phone] Potassium 4.9 mmol/L N 3.5-5.0 Chloride 96 [...] Egfr 17.2 >60 42 Lipid Profile 02/15/2017 [facility] Triglycerides 121 mg/dL 43 (Trig/Chol/HDL) [phone] Cholesterol 126 mg/dL 44 HDL Cholesterol 43.4 mg/dL 45 LDL Cholesterol 58 mg/dL 46 Comp Metabolic Panel 02/15/2017 [facility] Sodium 138 mmol/L N 133- 145 [phone] Potassium 4.7 mmol/L N 3.5-5.0 Chloride 95 [...] 25.3 >60 47 CBC Auto Diff 02/15/2017 [facility] White Blood 11.5 10^3/uL High 3.5 -10.8 [phone] Count Red Blood Count 2.66 10^6/uL Low [...] Blood Cells % 0 Laboratory test 02/15/2017 [facility] TSH (Thyroid 3.28 mcIU/mL N 0.34-5.60 finding [phone] Stim Horm) Laboratory test 02/13/2017 In House Hemoglobin A1c 5.7 finding CBC Auto Diff 02/06/2017 [facility] White Blood 8.1 10^3/uL N 3.5- 10.8 [phone] Count Red Blood Count 2.48 10^6/uL Low [...] Cells % 0 Comp Metabolic Panel 02/06/2017 [facility] Sodium 137 mmol/L N 133- 145 [phone] Potassium 4.3 mmol/L N 3.5-5.0 Chloride 97 [...] 17.9 >60 48 Laboratory test finding 02/06/2017 [facility] Lipase 28 U/L N 11.0- 82.0 [phone] 1 Reference ranges based on room air. 2 [facility] Severe Sepsis and Septic Shock Management Bundle [...] dialysis) 4 Critical Result K:2.4 Called to [id number] at: 10:37:31 by:[id number] Read back by:[id number] 5 Therapeutic concentration: <50 ug/mL Toxic concentration: >120 ug/mL 6 Result TnIDx:0.05 Called to [id number] at: 19:01:43 by:[id number] Read back by: [id number] Troponin-I testing on Plasma Separator Tubes (PST) has a known false positive rate of 0.20-0.40%. All positive troponins reflex immediately to secondary confirmatory testing. Using the [employer] DxI 800 Access Immunoassay systems, the 99th percentile upper reference limit was demonstrated to be < 0.03 ng/mL. 7 Critical Result K:2.5 Called to [id number] at: 11:06:46 by:[id number] Read back by:[id number] 8 Because ethnic data is not always [...] [address]: Ellis Elise MD Acct: [id number] Unit: [id number] AGE: 53 Location: ED Re06/07/18 SEX: M Status: REG ER SPEC: [id number] ANGELES: 06/07/18-[address] [facility] [address]: Ellis Elise MD REQ: [id number] RECD: 06/07/18150 STATUS: ROM OZUNA DR: Lety JARVIS _ SOURCE: NASAL SPDESC: ORDERED: Flu A B Request Procedure Result Reported Site Rapid Influenza A B Request Final 06/07/18- 1529 ML Specimen received for Influenza A/B Molecular testing * ML - Main Lab . END OF REPORT DEPARTMENT OF PATHOLOGY, [address] [place] [address] Juan Deelon M.D. Director [facility] # [id number] 14 [employer] Machine Operator: [id number] 15 Therapeutic concentration: <50 ug/mL Toxic concentration: >120 ug/mL 16 SEE RESULT BELOW Name: KATY SINGLETARY : [address]: Philly Miller MD Acct: [id number] Unit: [id number] AGE: 53 Location: [place] [address] Re06/07/18 SEX: M Status: ADM IN SPEC: [id number] ANGELES: 06/07/181446 [facility] DR: Ellis Elise MD REQ: [id number] RECD: 06/07/18 STATUS: ROM OZUNA DR: Lety Santamaria RPA-C _ SOURCE: BLOOD,VENO SPDESC: ORDERED: Blood Cult, Pediatric Bottl Procedure Result Reported Site Pediatric Blood Culture Final 06/12/181510 ML No Growth Day 5 * ML - Main Lab . END OF REPORT DEPARTMENT OF PATHOLOGY, [address] [place] [address] Juan Deleon M.D. Director [facility] # [id number] 17 SEE RESULT BELOW Name: YEISONKATY : [address]: Jamal Mcghee MD Acct: [id number] Unit: [id number] AGE: 53 Location: [place] [address] Re06/07/18 SEX: M Status: ADM IN SPEC: [id number] ANGELES: 06/07/[address]: Ellis Elise MD REQ: [id number] RECD: 06/07/18 STATUS: ROM OZUNA DR: Lety JARVIS _ SOURCE: URINE SPDESC: ORDERED: Urine Culture Procedure Result Reported Site Urine Culture Final 06/09/18- 09 ML No growth of clinically significant organisms * ML - Main Lab . END OF REPORT DEPARTMENT OF PATHOLOGY, [address] [place] [address] Juan Deleon M.D. Director [facility] # [id number] 18 SEE RESULT BELOW Name: KATY SINGLETARY Donnell : [address]: Philly Miller MD Acct: [id number] Unit: [id number] AGE: 53 Location: [place] [address] Re06/07/18 SEX: M Status: ADM IN SPEC: [id number] ANGELES: 06/07/18-[address]: Ellis Elise MD REQ: [id number] RECD: 06/07/18150 STATUS: ROM OZUNA DR: Lety Santamaria RPA-C _ SOURCE: BLOOD,VENO SPDES: ORDERED: Blood Cult Procedure Result Reported Site Aerobic Culture Bottle Final 06/12/18- 1506 ML No Growth Day 5 Anaerobic Culture Bottle Final 06/12/18- 1506 ML No Growth Day 5 * ML - Main Lab . END OF REPORT DEPARTMENT OF PATHOLOGY, [address] [place] [address] Juan Deleon M.D. Director [facility] # [id number] 19 Result TnIDx:0.07 Called to [id number] at: 16:26:39 by:[id number] Read back by: [id number] Troponin-I testing on Plasma Separator Tubes (PST) [...] 5 Kidney failure <15 (or dialysis) 21 [facility] Severe Sepsis and Septic Shock Management Bundle [...] KATY SINGLETARY: [address]: Amparo Landis [employer] Acct: [id number] Unit: [id number] AGE: 53 Location: WOUND Re03/29/18 SEX: M Status: REG REF SPEC: [id number] ANGELES: 03/29/181413 [facility] DR: Amparo Landis [employer] REQ: [id number] RECD: 03/29/18 STATUS: ROM OZUNA DR: [facility] _ SOURCE: TISSUE SPDESC:RIGHT ORDERED: Tissue Cult/GS [...] CONTINUED ON NEXT PAGE DEPARTMENT OF PATHOLOGY, [address] [place] [address] Juan Deleon M.D. Director [facility] # [id number] Patient: KATY SINGLETARY [id number] (Continued) Specimen: [id number] Collected: 03/29/18-141 Received: 03/29/18-748 (Continued) Procedure Result Reported Site Tissue Culture [...] END OF REPORT DEPARTMENT OF PATHOLOGY, [address] [place] [address] Juan Deleon M.D. Director [facility] # [id number] 25 SEE RESULT BELOW Name: KATY SINGLETARY : [address]: Lety JARVIS Acct: [id number] Unit: [id number] AGE: 52 Location: [facility] Re01/16/18 SEX: M Status: REG REF SPEC: [id number] ANGELES: 01/16/[address]: Lety JARVIS REQ: [id number] RECD: 01/16/18 STATUS: ROM OZUNA DR: Scott Boyd MD _ [facility] ORDERED: Urine Culture Procedure Result Reported Site Urine Culture Final 01/17/18- 1525 ML Organism 1 STREP GROUP B Reserve Count 1-10,000 (Few) CFU/ML Susceptibility testing of penicillins and other B-lactams approved by FDA for treatment of Streptococcus pyogenes (Group A Strep) and Streptococcus agalactiae (Group B Strep) is not necessary for clinical purposes and need not be done routinely, since as with vancomycin, resistant strains have not been recognized. (CLSI O768-S82;p.66) Positive isolates will be saved for one week. Please call the Microbiology Laboratory if further susceptibility testing is needed. * ML - Main Lab . END OF REPORT DEPARTMENT OF PATHOLOGY, [address] [place] [address] Juan Deleon M.D. Director [facility] # [id number] 26 Because ethnic data is not always [...] in selective patients <6.0%. Please refer to [place] [employer] diabetic care guidelines for further [...] (or dialysis) 30 Result TnIDx:0.04 Called to [id number] at: 17:43:09 by:[id number] Read back by: [id number] 31 [facility] Severe Sepsis and Septic Shock Management Bundle Measure requires all lactic acids initially measuring >2.0 mmol/L be repeated. 32 BLOOD WORK 33 SEE RESULTS BELOW [id number] AP PC TRANSFUSED 05/21/172000 34 [facility] Severe Sepsis and Septic Shock Management Bundle Measure requires all lactic acids initially measuring >2.0 mmol/L be repeated. 35 SEE RESULT BELOW Name: KATY SINGLETARY : [address]: Garry Javed MD Acct: [id number] Unit: [id number] AGE: 52 Location: [facility] Re05/01/17 SEX: M Status: DEP REF SPEC: [id number] ANGELES: 05/01/17- SUBM DR: Garry Javed MD REQ: [id number] RECD: 05/01/17 STATUS: CINTIA OZUNA DR: Lety [...] performed at Main Lab DEPARTMENT OF PATHOLOGY, [address] [place] [address] Juan Deleon M.D. Director [facility] # [id number] RUN DATE: 05/04/17 [facility] LAB LIVE PAGE 2 Patient: KATY SINGLETARY [id number] (Continued) CLINICAL HISTORY (Continued) CLINICAL HISTORY Anemia, [...] by up to 0.5 cm aggregate of hecotr-brown irregular to polypoid soft tissue fragments which [...] performed at Main Lab DEPARTMENT OF PATHOLOGY, [address] [place] [address] Juan Deleon M.D. Director [facility] # [id number] 36 SEE RESULT BELOW Name: KATY SINGLETARY : [address]: Garry Javed MD Acct: [id number] Unit: [id number] AGE: 52 Location: ENDO Re05/01/17 SEX: M Status: DEP REF SPEC: [id number] ANGELES: 05/01/17-[address] [facility] [address]: Garry Javed MD REQ: [id number] RECD: 05/03/170824 STATUS: ROM OZUNA DR: Lety JARVIS _ SOURCE: GAS ANTRUM SPDESC: ORDERED: Clotest Procedure Result Reported Site Clotest Final 05/04/17- 930 ML Clotest Negative * ML - MAIN LAB ([facility]) . END OF REPORT * ML=Testing performed at Main Lab DEPARTMENT OF PATHOLOGY, [address] [place] [address] Juan Deleon M.D. Director [facility] # [id number] 37 SEE RESULT BELOW Name: KATY SINGLETARY : [address]: Fermín Oscar MD Acct: [id number] Unit: [id number] AGE: 52 Location: ED Re02/17/17 SEX: M Status: REG ER SPEC: [id number] ANGELES: 02/17/[address]: Fermín Oscar MD REQ: [id number] RECD: 02/17/17 STATUS: RES [facility] DR: Lety Santamaria [facility] _ SOURCE: FOOT,LEFT SPDESC: ORDERED: Culture Stain Procedure Result Reported Site Wound/Misc Gram Stain Final 02/17/17- 190 ML 1+ Epithelial Cells 1+ Neutrophils 4+ Gram Positive Cocci in Clusters, resembling Staph 3+ Gram Negative Bacilli Wound/Misc Culture PENDING * ML - MAIN LAB ([facility]) . END OF REPORT * ML=Testing performed at Main Lab DEPARTMENT OF PATHOLOGY, [address] [place] [id number] Juan Deleon M.D. Director [facility] # [id number] 38 SEE RESULT BELOW Name: KATY SINGLETARY Donnell : [address]: Philly Miller MD Acct: [id number] Unit: [id number] AGE: 52 Location: [place] [address]- Re02/17/17 SEX: M Status: ADM IN SPEC: [id number] ANGELES: 02/17/[address] [facility] [address]: Fermín Oscar MD REQ: [id number] RECD: 02/17/17 STATUS: ROM OZUNA DR: [facility] _ SOURCE: FOOT,LEFT SPDESC: ORDERED: MRSA/SA SSTI, [...] performed at Main Lab DEPARTMENT OF PATHOLOGY, [address] [place] [address] Juan Deleon M.D. Director [facility] # [id number] Patient: KATY SINGLETARY [id number] (Continued) Specimen: [id number] Collected: 02/17/17 Received: 02/17/17 (Continued) Procedure Result Reported Site Wound/Misc Culture Final (continued) 02/20/171026 1. ENTEROCOCCUS FAECALIS (continued) M.I.C. RX --------- ------ * Streptomycin High Level S Tetracycline >=16 R Tigecycline <=0.12 S Vancomycin 1 S Imipenem-Deduced S * Ampicillin/Sulbactam-Deduced S * These antibiotics are not available in the [facility] Formulary Contact the Microbiology Department for any additional antibiotic reporting. * ML - MAIN LAB ([facility]) . END OF REPORT * ML=Testing performed at Main Lab DEPARTMENT OF PATHOLOGY, [address] [place] [address] Juan Deleon M.D. Director [facility] # [id number] [facility] Severe Sepsis and Septic Shock Management Bundle Measure requires all lactic acids initially measuring >2.0 mmol/L be repeated. 40 SEE RESULT BELOW Name: KATY SNIGLETARY : [address]: Philly Miller MD Acct: [id number] Unit: [id number] AGE: 52 Location: [place] [address]- Re02/17/17 SEX: M Status: ADM IN SPEC: [id number] ANGELES: 02/17/[address] [facility] [address]: Fermín Oscar MD REQ: [id number] RECD: 02/17/17 STATUS: RES SULMA DR[facility] _ SOURCE: BLOOD,VENO SPDESC: ORDERED: Blood Cult Procedure Result Reported Site Aerobic Culture Bottle Preliminary 02/18/17- 1809 ML No Growth Day 1 Anaerobic Culture Bottle Preliminary 02/18/17- 1807 ML No Growth Day 1 * ML - MAIN LAB ([facility]) . END OF REPORT * ML=Testing performed at Main Lab DEPARTMENT OF PATHOLOGY, [address] [place] [address] Juan Deleon M.D. Director [facility] # [id number] 41 Acute inflammation: >10.00 42 Because ethnic [...] dialysis) Procedures Date Code Description Status 01/16/2018 13405 Brief Emotional/Behav Assessment W/ Scoring Doc Per Completed Standard Inst 01/02/2018 [id number] Diabetic Retinal Eye Exam Completed 05/01/2017 [id number] Colonoscopy Completed 03/12/2017 [id number] Diabetic Foot Exam Completed Encounters Type Date [...] am - Ta Baxter D.O. at Main Office
--- OUTSIDE RECORDS SUMMARY | 2018-08-07 12:13 | XMS REPORT | Continuity of Care Document ---
:1965 External Reference #:[id number] Author Name Ta Baxter D.O. Address [address] [place] [id number] Care Team Providers Name Role Phone HCP given Primary Care Physician Unavailable Payers Date Identification Numbers Payment Provider Subscriber Effective: Policy Number: Zia Singletary 2017 [id number] Ind/Ppo/Hmo/Pos PayID: [id number] [address] [address] [place] [address] Effective: 1999 Policy Number: [facility] Katy Singletary [id number] PayID: [id number] [address] [place] [address] Advance Directives Description No Information Available Problems [...] History Date Family Member(s) Observation Comments Father [place] Mother due to Liver Cancer () Paternal Grandmother Diabetes, Nos Maternal Grandfather Heart Disease Maternal Grandfather due to Heart Disease () Maternal Uncles due to CAD () Social History Type Date Description Comments Sex Unknown Education High School Completed Marital Status 12/2016 Lives With Alone Has daughter, but she is working on her Masters' degree, down in [place], [place]. Occupation [employer] Work Status Not Currently Working disability 2017 Years Employed over 30 years 20 years spent working at [employer] 06/06/2018 Right-handed Tobacco Use Start: Unknown Denies [...] Santyl apply 1 gm ointment 60gm E11.621 [facility] [place], 10/26/2017 - 250Unit/GM qd to wound for [...] by Unknown 04/25/2017 - 325mg Tablets mouth [id number] as 06/17/2018 needed for pain otc Azithromycin [...] CPT Code Status Date Vaccine Lot # 54665 Given 06/06/2018 Shingrix Zoster (Shingles) Vaccine (HZV) [id number] Recomb,Subnit,Adjuvanted 08555 Given 06/06/2018 Prevnar 13 [id number] Given 12/19/2017 Shingrix Zoster (Shingles) Vaccine (HZV) [id number] Recomb,Subnit,Adjuvanted 02384 Given 12/19/2017 Adacel or Boostrix, TDaP [id number] Vital Signs Date Vital Result Comment 07/09/2018 [...] H/L Range Note Venous Blood Gas 07/01/2018 [facility] Venous Blood pH 7.47 High 7.32 -7.43 [phone] Venous Pco2 53 mmHg High 41-51 Venous Po2 55.0 mmHg High 35-45 Venous O2 Saturation 89.3 % High 70-80 Venous Blood Base Excess 12.7 mmol/L High 0.0-4.0 1 Venous Bicarbonate Hco3 34.6 mmol/L High 24-28 CBC Auto Diff 07/01/2018 [facility] White Blood Count 5.0 10^3/uL N 3.5-10.8 [phone] Red Blood Count 2.50 10^6/uL Low 4.18-5.48 [...] Cells % 0.1 Laboratory test finding 07/01/2018 [facility] Lactic Acid 1.6 mmol/L N 0.5-2.0 2 [phone] Calcium Ionized 0.92 mmol/L Low 1.16-1.32 Comp Metabolic Panel 07/01/2018 [facility] Sodium 135 mmol/L N 135- 145 [phone] Chloride 91 mmol/L Low 101-111 Co2 Carbon [...] mmol/L N 2-11 Laboratory test finding 07/01/2018 [facility] Magnesium 2.0 mg/dL N 1.9-2.7 [phone] Acetaminophen < 15 g/mL 5 Ammonia 45 mcmol/L N 16-53 C Reactive Protein 11.19 mg/L High <8.01 TSH (Thyroid Stim Horm) 1.23 mcIU/mL N 0.34-5.60 Troponin-I (TnI) 0.05 ng/mL High <0.04 6 CBC Auto Diff 07/01/2018 [facility] White Blood Count 5.8 10^3/uL N 3.5-10.8 [phone] Red Blood Count 2.12 10^6/uL Low 4.18-5.48 [...] Cells % 0.1 Comp Metabolic Panel 07/01/2018 [facility] Sodium 135 mmol/L N 135- 145 [phone] Chloride 92 mmol/L Low 101-111 Co2 Carbon [...] Egfr 20.0 >60 8 Laboratory test 07/01/2018 [facility] Magnesium 1.9 mg/dL N 1.9-2.7 finding [phone] CBC Auto Diff 06/28/2018 [facility] White Blood 8.7 10^3/uL N 3.5- 10.8 [phone] Count Red Blood Count 2.50 10^6/uL Low [...] Cells % 0 Hepatitis C Antibody 06/28/2018 [facility] HCV Index 0.1 Index [phone] Hepatitis C Antibody Nonreactive Nonreactive Lipid Profile (Trig/Chol/HDL) 06/28/2018 [facility] Triglycerides 100 mg/dL 9 [phone] Cholesterol 113 mg/dL 10 HDL Cholesterol 40.0 mg/dL 11 LDL Cholesterol 53 mg/dL 12 Laboratory test 06/07/2018 [facility] Rapid Influenza SEE RESULT 13 finding [phone] A B Antigen BELOW Rapid Influenza 06/07/2018 [facility] Influenza A NEGATIVE Negative 14 A & B Molecular [phone] Molecular Influenza B Molecular NEGATIVE Negative Laboratory test finding 06/07/2018 [facility] Acetaminophen < 15 g/ mL 15 [phone] Pediatric Blood Culture SEE RESULT BELOW 16 Urine Culture And 06/07/2018 [facility] Urine Culture SEE RESULT 17 Sensitivities [phone] BELOW Laboratory test finding 06/07/2018 [facility] Blood Culture SEE RESULT 18 [phone] BELOW Urinalysis Profile 06/07/2018 [facility] Urine Color Yellow [phone] Urine Appearance Cloudy Urine Specific Ray 1.009 Low 1.010-1.030 Urine pH 9.0 N [...] Cell Present Abnormal Absent Laboratory test 06/07/2018 [facility] Partial 34.0 seconds N 26.0- 36.3 finding [phone] Thrombo Time PTT Inr/Protime 06/07/2018 [facility] Inr 1.67 High 0.77-1.02 [phone] Laboratory test 06/07/2018 [facility] C Reactive 42.00 mg/L High < 8.01 finding [phone] Protein Troponin-I (TnI) 0.07 ng/mL High <0.04 19 Comp Metabolic Panel 06/07/2018 [facility] Sodium 138 mmol/L N 135- 145 [phone] Potassium 2.8 mmol/L Low 3.5-5.0 Chloride 93 [...] 14.0 >60 20 CBC Auto Diff 06/07/2018 [facility] White Blood Count 6.9 10^3/uL N 3.5-10.8 [phone] Red Blood Count 2.31 10^6/uL Low 4.18-5.48 [...] Blood Cells % 0.1 Laboratory test 06/07/2018 [facility] Lactic Acid 1.2 mmol/L N 0.5- 2.0 21 finding [phone] Laboratory test 06/06/2018 In House Hemoglobin A1c 5.5 finding Basic Metabolic 05/10/2018 [facility] Sodium 138 mmol/L N 135-145 Panel [phone] Potassium 2.9 mmol/L Low 3.5-5.0 Chloride 92 mmol/L Low 101-111 Co2 Carbon Dioxide 36 mmol/L High 22-32 Anion Gap 10 mmol/L N 2-11 Glucose 103 mg/dL High 70-100 Blood Urea Nitrogen 15 mg/dL N 6-24 Creatinine 4.01 mg/dL High 0.67-1.17 BUN/Creatinine Ratio 3.7 Low 8-20 Calcium 9.1 mg/dL N 8.6-10.3 Egfr Non- 15.7 >60 Egfr 19.0 >60 22 CBC Auto Diff 05/10/2018 [facility] White Blood Count 7.3 10^3/uL N 3.5-10.8 [phone] Red Blood Count 2.68 10^6/uL Low 4.00-5.40 [...] Blood Cells % 0 Laboratory test 05/10/2018 [facility] Partial 33.6 N 26.0-36.3 finding [phone] Thrombo Time seconds PTT Inr/Protime 05/10/2018 [facility] Inr 1.37 High 0.77-1.02 [phone] Laboratory test 03/29/2018 [facility] Tissue SEE RESULT 23, 24 finding [phone] Culture & BELOW Sensitiv Ua Inhouse 03/08/2018 In House Ua Glucose trace Ua Specific Ray 1.005 Ua Blood +2 Ua PH 8.5 Ua Protein +3 Laboratory test finding 03/08/2018 In House Culture Throat negative Culture Throat Rapid Screen negative Urine Culture And 01/16/2018 [facility] Urine Culture SEE RESULT 25 Sensitivities [phone] BELOW Comp Metabolic Panel 01/16/2018 [facility] Sodium 140 mmol/L N 135- 145 [phone] Potassium 3.2 mmol/L Low 3.5-5.0 Chloride 93 [...] Egfr 8.6 >60 26 Urine Microalbumin 01/16/2018 [facility] Urine Creatinine 114.23 mg/dL Random [phone] Ur Microalbumin (mg/L) > 1500.0 Urine Microalbumin/Creatinine 1313.1 High <31 Urinalysis Profile 01/16/2018 [facility] Urine Color Yellow [phone] Urine Appearance Cloudy Urine Specific Ray 1.010 N 1.010-1.030 Urine pH 9.0 N [...] Epithelial Cell Present Abnormal Absent Inr/Protime 01/16/2018 [facility] Inr 1.20 High 0.77-1.02 [phone] CBC Auto Diff 01/16/2018 [facility] White Blood 7.9 10^3/uL N 3.5- 10.8 [phone] Count Red Blood Count 2.95 10^6/uL Low [...] Blood Cells % 0 Laboratory test 01/16/2018 [facility] Hemoglobin A1c 5.3 % N 4.0-5.6 27 finding [phone] (Glyco HGB) Laboratory test 10/26/2017 In House Hemoglobin A1c 5.5 finding CBC Auto Diff 07/28/2017 [facility] White Blood Count 8.7 N 3.5-10.8 [phone] 10^3/uL Red Blood Count 3.68 10^6/uL Low [...] Blood Cells % 0 Laboratory test 07/28/2017 [facility] B-Type Natriuretic 39 pg/mL 28 finding [phone] Peptide BNP Comp Metabolic 07/28/2017 [facility] Sodium 134 mmol/L Low 139-14 Panel [phone] Potassium 3.2 mmol/L Low 3.5-5.0 Chloride [...] Egfr 14.4 >60 29 Laboratory test 07/28/2017 [facility] Troponin-I (TnI) 0.04 ng/mL High <0.04 30 finding [phone] TSH (Thyroid Stim Horm) 1.44 mcIU/mL N 0.34-5.60 Laboratory test 07/28/2017 [facility] Lactic Acid 1.9 mmol/L N 0.5- 2.0 31 finding [phone] Inr/Protime 07/28/2017 [facility] Inr 1.20 High 0.77-1.02 [phone] Laboratory test 07/28/2017 [facility] Troponin-I 0.03 ng/mL <0.04 finding [phone] (TnI) Type & Screen 05/21/2017 [facility] Patient Blood A Positive 32 [phone] Type Antibody Screen NEGATIVE Laboratory test 05/21/2017 [facility] Packed Cells SEE RESULTS 33 finding [phone] BELO <SEE NOTE> Laboratory test 05/07/2017 [facility] Lactic Acid 1.5 mmol/L N 0.5- 2.0 34 finding [phone] Laboratory test 05/01/2017 [facility] Surgical SEE RESULT 35 finding [phone] Interface Order BELOW Laboratory test 05/01/2017 [facility] Clotest SEE RESULT 36 finding [phone] BELOW Urinalysis 02/17/2017 [facility] Urine Color Straw Profile [phone] Urine Appearance Clear Urine Specific Ray 1.004 Low 1.010-1.030 Urine pH 9.0 N [...] Urine Bacteria Absent Absent Laboratory test 02/17/2017 [facility] Wound Culture/Sensi SEE RESULT 37 finding [phone] BELOW MRSA/S. aureus Ssti PCR SEE RESULT BELOW 38 Laboratory test 02/17/2017 [facility] Lactic Acid 0.9 mmol/L N 0.5- 2.0 39 finding [phone] Laboratory test 02/17/2017 [facility] Erythrocyte Sed 120 mm/Hr High 0-20 finding [phone] Rate Blood Culture SEE RESULT BELOW 40 CBC Auto Diff 02/17/2017 [facility] White Blood 11.8 10^3/uL High 3.5 -10.8 [phone] Count Red Blood Count 2.45 10^6/uL Low [...] Cells % 0 Laboratory test finding 02/17/2017 [facility] Uric Acid 3.1 mg/dL Low 4.4-7.6 [phone] C Reactive Protein 12.71 mg/L High < 5.00 41 Comp Metabolic Panel 02/17/2017 [facility] Sodium 135 mmol/L N 133- 145 [phone] Potassium 4.9 mmol/L N 3.5-5.0 Chloride 96 [...] Egfr 17.2 >60 42 Lipid Profile 02/15/2017 [facility] Triglycerides 121 mg/dL 43 (Trig/Chol/HDL) [phone] Cholesterol 126 mg/dL 44 HDL Cholesterol 43.4 mg/dL 45 LDL Cholesterol 58 mg/dL 46 Comp Metabolic Panel 02/15/2017 [facility] Sodium 138 mmol/L N 133- 145 [phone] Potassium 4.7 mmol/L N 3.5-5.0 Chloride 95 [...] 25.3 >60 47 CBC Auto Diff 02/15/2017 [facility] White Blood 11.5 10^3/uL High 3.5 -10.8 [phone] Count Red Blood Count 2.66 10^6/uL Low [...] Blood Cells % 0 Laboratory test 02/15/2017 [facility] TSH (Thyroid 3.28 mcIU/mL N 0.34-5.60 finding [phone] Stim Horm) Laboratory test 02/13/2017 In House Hemoglobin A1c 5.7 finding CBC Auto Diff 02/06/2017 [facility] White Blood 8.1 10^3/uL N 3.5- 10.8 [phone] Count Red Blood Count 2.48 10^6/uL Low [...] Cells % 0 Comp Metabolic Panel 02/06/2017 [facility] Sodium 137 mmol/L N 133- 145 [phone] Potassium 4.3 mmol/L N 3.5-5.0 Chloride 97 [...] 17.9 >60 48 Laboratory test finding 02/06/2017 [facility] Lipase 28 U/L N 11.0- 82.0 [phone] 1 Reference ranges based on room air. 2 [facility] Severe Sepsis and Septic Shock Management [...] dialysis) 4 Critical Result K:2.4 Called to [id number] at: 10:37:31 by:[id number] Read back by:[id number] 5 Therapeutic concentration: <50 ug/mL Toxic concentration: >120 ug/mL 6 Result TnIDx:0.05 Called to [id number] at: 19:01:43 by:[id number] Read back by: [id number] Troponin-I testing on Plasma Separator Tubes (PST) has a known false positive rate of 0.20-0.40%. All positive troponins reflex immediately to secondary confirmatory testing. Using the [employer] DxI 800 Access Immunoassay systems, the 99th percentile upper reference limit was demonstrated to be < 0.03 ng/mL. 7 Critical Result K:2.5 Called to [id number] at: 11:06:46 by:[id number] Read back by:[id number] 8 Because ethnic data is not always [...] [address]: Ellis Elise MD Acct: [id number] Unit: [id number] AGE: 53 Location: ED Re06/07/18 SEX: M Status: REG ER SPEC: [id number] ANGELES: 06/07/18-[address] [facility] [address]: Ellis Elise MD REQ: [id number] RECD: 06/07/18150 STATUS: ROM OZUNA DR: Lety JARVIS _ SOURCE: NASAL SPDESC: ORDERED: Flu A B Request Procedure Result Reported Site Rapid Influenza A B Request Final 06/07/18- 1529 ML Specimen received for Influenza A/B Molecular testing * ML - Main Lab . END OF REPORT DEPARTMENT OF PATHOLOGY, [address] [place] [address] Juan Deleon M.D. Director [facility] # [id number] 14 Line Assigner: [id number] Therapeutic concentration: <50 ug/mL Toxic concentration: >120 ug/mL 16 SEE RESULT BELOW Name: KATY SINGLETARY : [address]: Philly Miller MD Acct: [id number] Unit: [id number] AGE: 53 Location: [place] [address] Re06/07/18 SEX: M Status: ADM IN SPEC: [id number] ANGELES: 06/07/181446 [facility] [address]: Ellis Elise MD REQ: [id number] RECD: 06/07/18 STATUS: ROM OZUNA DR: Lety Santamaria RPA-C _ SOURCE: BLOOD,VENO SPDESC: ORDERED: Blood Cult, Pediatric Bottl Procedure Result Reported Site Pediatric Blood Culture Final 06/12/181510 ML No Growth Day 5 * ML - Main Lab . END OF REPORT DEPARTMENT OF PATHOLOGY, [address] [place] [address] Juan Deleon M.D. Director [facility] # [id number] 17 SEE RESULT BELOW Name: YEISONKATY : [address]: Jamal Mcghee MD Acct: [id number] Unit: [id number] AGE: 53 Location: [place] [address] Re06/07/18 SEX: M Status: ADM IN SPEC: [id number] ANGELES: 06/07/[address]: Ellis Elise MD REQ: [id number] RECD: 06/07/18 STATUS: ROM OZUNA DR: Lety JARVIS _ SOURCE: URINE SPDESC: ORDERED: Urine Culture Procedure Result Reported Site Urine Culture Final 06/09/18- 09 ML No growth of clinically significant organisms * ML - Main Lab . END OF REPORT DEPARTMENT OF PATHOLOGY, [address] [place] [address] Juan Deleon M.D. Director [facility] # [id number] 18 SEE RESULT BELOW Name: KATY SINGLETARY Donnell : [address]: Philly Miller MD Acct: [id number] Unit: [id number] AGE: 53 Location: [place] [address] Re06/07/18 SEX: M Status: ADM IN SPEC: [id number] ANGELES: 06/07/18-[address]: Ellis Elise MD REQ: [id number] RECD: 06/07/18150 STATUS: ROM OZUNA DR: Lety Santamaria RPA-C _ SOURCE: BLOOD,VENO SPDES: ORDERED: Blood Cult Procedure Result Reported Site Aerobic Culture Bottle Final 06/12/18- 1506 ML No Growth Day 5 Anaerobic Culture Bottle Final 06/12/18- 1506 ML No Growth Day 5 * ML - Main Lab . END OF REPORT DEPARTMENT OF PATHOLOGY, [address] [place] [address] Juan Deleon M.D. Director [facility] # [id number] 19 Result TnIDx:0.07 Called to [id number] at: 16:26:39 by:[id number] Read back by: [id number] Troponin-I testing on Plasma Separator Tubes (PST) [...] 5 Kidney failure <15 (or dialysis) 21 [facility] Severe Sepsis and Septic Shock Management [...] KATY SINGLETARY: [address]: Amparo Landis [employer] Acct: [id number] Unit: [id number] AGE: 53 Location: WOUND Re03/29/18 SEX: M Status: REG REF SPEC: [id number] ANGELES: 03/29/181413 [facility] [address]: Amparo Landis [employer] REQ: [id number] RECD: 03/29/18 STATUS: ROM OZUNA DR: [facility] _ SOURCE: TISSUE SPDESC:RIGHT ORDERED: Tissue Cult/GS [...] CONTINUED ON NEXT PAGE DEPARTMENT OF PATHOLOGY, [address] [place] [address] Juan Deleon M.D. Director [facility] # [id number] Patient: KATY SINGLETARY [id number] (Continued) Specimen: [id number] Collected: 03/29/18-141 Received: 03/29/18-836 (Continued) Procedure Result Reported Site Tissue Culture [...] . END OF REPORT DEPARTMENT OF PATHOLOGY, [address] [place] [address] Juan Deleon M.D. Director [facility] # [id number] 25 SEE RESULT BELOW Name: KATY SINGLETARY : [address]: Lety JARVIS Acct: [id number] Unit: [id number] AGE: 52 Location: [facility] Re01/16/18 SEX: M Status: REG REF SPEC: [id number] ANGELES: 01/16/[address]: Lety JARVIS REQ: [id number] RECD: 01/16/18 STATUS: ROM OZUNA DR: Scott Boyd MD _ [facility] ORDERED: Urine Culture Procedure Result Reported Site Urine Culture Final 01/17/18- 1525 ML Organism 1 STREP GROUP B [place] Count 1-10,000 (Few) CFU/ML Susceptibility testing of penicillins and other B-lactams approved by FDA for treatment of Streptococcus pyogenes (Group A Strep) and Streptococcus agalactiae (Group B Strep) is not necessary for clinical purposes and need not be done routinely, since as with vancomycin, resistant strains have not been recognized. (CLSI W999-M66;p.66) Positive isolates will be saved for one week. Please call the Microbiology Laboratory if further susceptibility testing is needed. * ML - Main Lab . END OF REPORT DEPARTMENT OF PATHOLOGY, [address] [place] [address] Juan Deleon M.D. Director [facility] # [id number] 26 Because ethnic data is not always [...] in selective patients <6.0%. Please refer to [place] [employer] diabetic care guidelines for further [...] (or dialysis) 30 Result TnIDx:0.04 Called to [id number] at: 17:43:09 by:[id number] Read back by: [id number] 31 [facility] Severe Sepsis and Septic Shock Management Bundle Measure requires all lactic acids initially measuring >2.0 mmol/L be repeated. 32 BLOOD WORK 33 SEE RESULTS BELOW [id number] AP PC TRANSFUSED 05/21/172000 34 [facility] Severe Sepsis and Septic Shock Management Bundle Measure requires all lactic acids initially measuring >2.0 mmol/L be repeated. 35 SEE RESULT BELOW Name: KATY SINGLETARY : [address]: Garry Javed MD Acct: [id number] Unit: [id number] AGE: 52 Location: [facility] Re05/01/17 SEX: M Status: DEP REF SPEC: [id number] ANGELES: 05/01/17- SUBM DR: Garry Javed MD REQ: [id number] RECD: 05/01/17 STATUS: CINTIA OZUNA DR: Lety [...] performed at Main Lab DEPARTMENT OF PATHOLOGY, [address] [place] [address] Juan Deleon M.D. Director [facility] # [id number] RUN DATE: 05/04/17 [facility] LAB LIVE PAGE 2 Patient: KATY SINGLETARY [id number] (Continued) CLINICAL HISTORY (Continued) CLINICAL HISTORY Anemia, [...] performed at Main Lab DEPARTMENT OF PATHOLOGY, [address] [place] [address] Juan Deleon M.D. Director [facility] # [id number] 36 SEE RESULT BELOW Name: KATY SINGLETARY : [address]: Garry Javed MD Acct: [id number] Unit: [id number] AGE: 52 Location: ENDO Re05/01/17 SEX: M Status: DEP REF SPEC: [id number] ANGELES: 05/01/17-[address] [facility] [address]: Garry Javed MD REQ: [id number] RECD: 05/03/172785 STATUS: ROM OZUNA DR: Lety JARVIS _ SOURCE: GAS ANTRUM SPDESC: ORDERED: Clotest Procedure Result Reported Site Clotest Final 05/04/17- 930 ML Clotest Negative * ML - MAIN LAB ([facility]) . END OF REPORT * ML=Testing performed at Main Lab DEPARTMENT OF PATHOLOGY, [address] [place] [address] Juan Deleon M.D. Director [facility] # [id number] 37 SEE RESULT BELOW Name: KATY SINGLETARY : [address]: Fermín Oscar MD Acct: [id number] Unit: [id number] AGE: 52 Location: ED Re02/17/17 SEX: M Status: REG ER SPEC: [id number] ANGELES: 02/17/[address]: Fermín Oscar MD REQ: [id number] RECD: 02/17/17 STATUS: RES [facility] DR: Lety Santamaria [facility] _ SOURCE: FOOT,LEFT SPDESC: ORDERED: Culture Stain Procedure Result Reported Site Wound/Misc Gram Stain Final 02/17/17- 190 ML 1+ Epithelial Cells 1+ Neutrophils 4+ Gram Positive Cocci in Clusters, resembling Staph 3+ Gram Negative Bacilli Wound/Misc Culture PENDING * ML - MAIN LAB ([facility]) . END OF REPORT * ML=Testing performed at Main Lab DEPARTMENT OF PATHOLOGY, [address] [place] [id number] Juan Deleon M.D. Director [facility] # [id number] 38 SEE RESULT BELOW Name: KATY SINGLETARY Donnell : [address]: Philly Miller MD Acct: [id number] Unit: [id number] AGE: 52 Location: [place] [address]- Re02/17/17 SEX: M Status: ADM IN SPEC: [id number] ANGELES: 02/17/[address] [facility] [address]: Fermín Oscar MD REQ: [id number] RECD: 02/17/17 STATUS: ROM OZUNA DR: Lety Santamaria [facility] _ SOURCE: FOOT,LEFT SPDESC: ORDERED: MRSA/SA SSTI, [...] performed at Main Lab DEPARTMENT OF PATHOLOGY, [address] [place] [address] Juan Deleon M.D. Director [facility] # [id number] Patient: KATY SINGLETARY [id number] (Continued) Specimen: [id number] Collected: 02/17/17 Received: 02/17/17 (Continued) Procedure Result Reported Site Wound/Misc Culture Final (continued) 02/20/171026 1. ENTEROCOCCUS FAECALIS (continued) M.I.C. RX --------- ------ * Streptomycin High Level S Tetracycline >=16 R Tigecycline <=0.12 S Vancomycin 1 S Imipenem-Deduced S * Ampicillin/Sulbactam-Deduced S * These antibiotics are not available in the [facility] Formulary Contact the Microbiology Department for any additional antibiotic reporting. * ML - MAIN LAB ([facility]) . END OF REPORT * ML=Testing performed at Main Lab DEPARTMENT OF PATHOLOGY, [address] [place] [address] Juan Deleon M.D. Director [facility] # [id number] [facility] Severe Sepsis and Septic Shock Management Bundle Measure requires all lactic acids initially measuring >2.0 mmol/L be repeated. 40 SEE RESULT BELOW Name: KATY SINGLETARY : [address]: Philly Miller MD Acct: [id number] Unit: [id number] AGE: 52 Location: [place] [address]- Re02/17/17 SEX: M Status: ADM IN SPEC: [id number] ANGELES: 02/17/[address] [facility] [address]: Fermín Oscar MD REQ: [id number] RECD: 02/17/17 STATUS: RES SULMA DR: Lety Santamaria [facility] _ SOURCE: BLOOD,VENO SPDESC: ORDERED: Blood Cult Procedure Result Reported Site Aerobic Culture Bottle Preliminary 02/18/17- 1809 ML No Growth Day 1 Anaerobic Culture Bottle Preliminary 02/18/17- 1807 ML No Growth Day 1 * ML - MAIN LAB ([facility]) . END OF REPORT * ML=Testing performed at Main Lab DEPARTMENT OF PATHOLOGY, [address] [place] [address] Juan Deleon M.D. Director [facility] # [id number] 41 Acute inflammation: >10.00 42 Because ethnic [...] dialysis) Procedures Date Code Description Status 01/16/2018 94769 Brief Emotional/Behav Assessment W/ Scoring Doc Per Completed Standard Inst 01/02/2018 [id number] Diabetic Retinal Eye Exam Completed 05/01/2017 [id number] Colonoscopy Completed 03/12/2017 [id number] Diabetic Foot Exam Completed Encounters Type Date [...]
--- OUTSIDE RECORDS SUMMARY | 2018-08-07 12:13 | XMS REPORT | Continuity of Care Document ---
:1965 External Reference #:[id number] Author Name Snow Her Care Team Providers Name Role Phone Lety Santamaria PA Primary Care Physician Unavailable Payers Date Identification Numbers Payment Provider Subscriber Effective: Policy Number: [id number] [facility] Katy Jacobo Gemini 2010 PayID: [id number] [address] [address] RICHARD Majano [address] Policy Number: [id number] Medicare Katy Jacobo [place] PayID: [id number] [address] [place] [address] Advance Directives Type Date Description Status Comment Other Directive 06/14/2018 Health Care Proxy Current and Verified Problems Active Problems Provider Date Chronic osteomyelitis of ankle Adrián Louis M.D. Onset: 02/03/2015 and/or foot Mitral valve disorder William Chavez M.D., [facility], Onset: 03/30/2017 [facility] Essential hypertension William Chavez M.D., [facility], Onset: 03/30/2017 [facility] Family History Date Family Member(s) Observation Comments General Father-DC General mother- due to liver cancer. General paternal ieglkquywho-istdccaj-JLT General Maternal grandfather-heart disease- due to General - 12/2016-DC Father Heart Disease Mother due to Liver Cancer () - age 60 something Siblings 1 sister- 51-Guillian Phoenix syndrome as a teenager Social History Type Date Description Comments Sex Unknown Marital Status Lives With Patient in december-2016 Lives With Alone Occupation Disabled in 2016 ETOH Use Occasionally consumes alcohol Tobacco Use [...] DR madi (on hold as of 06/04/18) [place] 1 tab by mouth q6 20tabs Adrián Louis, 04/06/2017 - 5-325mg Tablets hours as needed M.D. 05/24/2017 pain [place] 1 tab by mouth q6 20tabs Boom [...] Result H/L Range Note Laboratory test 06/28/2018 [facility] C Reactive 16.24 mg/L High <8.[address] [place] [address] [phone] Laboratory test 06/04/2018 [facility] C Difficile SEE RESULT [address] [place] [address] [phone] Inr/Protime 05/10/2018 [facility] Inr 1.37 High 0.77-1.[address] [place] [address] [phone] Laboratory test 05/10/2018 [facility] Partial 33.6 seconds N 26.0-36.[address] [place] [address] PTT [phone] CBC Auto Diff 05/10/2018 [facility] White Blood 7.3 10^3/uL N 3.5-10.[address] [place] [address] [phone] Red Blood Count 2.68 10^6/uL Low 4.00-5.40 [...] Cells % 0 Basic Metabolic Panel 05/10/2018 [facility] Sodium 138 mmol/L N 135-[address] [place] [address] [phone] Potassium 2.9 mmol/L Low 3.5-5.0 Chloride 92 mmol/L Low 101-111 Co2 Carbon Dioxide 36 mmol/L High 22-32 Anion Gap 10 mmol/L N 2-11 Glucose 103 mg/dL High 70-100 Blood Urea Nitrogen 15 mg/dL N 6-24 Creatinine 4.01 mg/dL High 0.67-1.17 BUN/Creatinine Ratio 3.7 Low 8-20 Calcium 9.1 mg/dL N 8.6-10.3 Egfr Non- 15.7 >60 Egfr 19.0 >60 2 Laboratory test 03/29/2018 [facility] Tissue Culture SEE RESULT 3, [address] & [place] [address] [phone] Basic Metabolic 01/09/2018 [facility] Sodium 141 mmol/L N 135- [address] [place] [address] [phone] Potassium 3.6 mmol/L N 3.5-5.0 Chloride 94 mmol/L Low 101-111 Co2 Carbon Dioxide 33 mmol/L High 22-32 Anion Gap 14 mmol/L High 2-11 Glucose 104 mg/dL High 70-100 Blood Urea Nitrogen 37 mg/dL High 6-24 Creatinine 7.57 mg/dL High 0.67-1.17 BUN/Creatinine Ratio 4.9 Low 8-20 Calcium 8.4 mg/dL Low 8.6-10.3 Egfr Non- 7.6 >60 Egfr 9.1 >60 5 Laboratory test 01/09/2018 [facility] Erythrocyte Sed 79 mm/Hr High 0-[address] [place] [address] [phone] Urinalysis 03/31/2017 [facility] Urine Color Yellow Profile [address] [place] [address] [phone] Urine Appearance Clear Urine Specific [place] 1.014 N 1.010-1.030 Urine pH 8.0 N [...] Cell Present Abnormal Absent CBC Auto 03/29/2017 [facility] White Blood 12.6 10^3/uL High 3.5-10.[address] [place] [address] [phone] Red Blood Count 2.22 10^6/uL Low 4.0-5.4 [...] Red Blood Cells % 0.1 Laboratory test 03/29/2017 [facility] Partial 35.9 seconds N 26.0-36.[address] [place] [address] PTT [phone] Basic Metabolic 03/29/2017 [facility] Sodium 134 mmol/L N 133- [address] [place] [address] [phone] Potassium 4.8 mmol/L N 3.5-5.0 Chloride 93 mmol/L Low 101-111 Co2 Carbon Dioxide 31 mmol/L N 22-32 Anion Gap 10 mmol/L N 2-11 Glucose 93 mg/dL N 70-100 Blood Urea Nitrogen 24 mg/dL N 6-24 Creatinine 3.98 mg/dL High 0.67-1.17 BUN/Creatinine Ratio 6.0 Low 8-20 Calcium 8.7 mg/dL N 8.6-10.3 Egfr Non- 15.9 >60 Egfr 20.4 >60 6 Inr/Protime 03/29/2017 [facility] Inr 1.21 High 0.77-1.[address] [place], [place] [id number] [phone] Laboratory test 08/03/2015 [facility] C Reactive < 1.00 N < 5.00 [address] Protein mg/[place] [address] [phone] Laboratory test 07/06/2015 [facility] C Reactive < 1.00 N < 5.[address] Protein mg/[place] [address] [phone] Laboratory test 07/06/2015 [facility] Erythrocyte Sed 81 mm/Hr High 0-[address] [place] [address] [phone] CBC Auto Diff 07/06/2015 [facility] White Blood 7.4 N 3.5- 10.[address] Count 10^3/[place] [address] [phone] Red Blood Count 3.30 10^6/uL Low 4.0-5.4 [...] Blood Cells % 0.1 N Laboratory test 06/08/2015 [facility] Hemoglobin A1c 7.6 % High Less than [address] (Glyco HGB) 6.0 [place] [address] [phone] Basic Metabolic 12/24/2014 [facility] Sodium 138 N 133-[address] mmol/[place] [address] [phone] Potassium 5.7 mmol/L High 3.5-5.0 Chloride 111 mmol/L N 101-111 Co2 Carbon Dioxide 18 mmol/L Low 22-32 Anion Gap 9 mmol/L N 2-11 Glucose 157 mg/dL High 70-100 Blood Urea Nitrogen 34 mg/dL High 6-24 Creatinine 3.08 mg/dL High 0.67-1.17 BUN/Creatinine Ratio 11.0 N 8-20 Calcium 8.3 mg/dL Low 8.6-10.3 Egfr Non- 21.6 N >60 Egfr 27.8 N >60 10 Laboratory test 12/24/2014 [facility] Uric Acid 5.8 mg/dL N 4.4-7.[address] [place] [address] [phone] Laboratory test 02/25/2013 [facility] C Reactive 0.6 mg/dL High Less than finding [address] Protein 0.5 [place], [place] [id number] [phone] Comp Metabolic 02/25/2013 [facility] Sodium 132 Low 133-[address] mmol/[place] [address] [phone] Potassium 4.0 mmol/L 3.5-5.0 Chloride 104 mmol/L [...] >60 Egfr 69.3 >60 11 Wound 02/19/2013 [facility] Wound/Misc (SEE NOTE) 12 Culture/Sensi [address] [place] [address] Stain [phone] Comp Metabolic 02/11/2013 [facility] Sodium 140 mmol/L 133-[address] [place] [address] [phone] Potassium 4.1 mmol/L 3.5-5.0 Chloride 106 mmol/L [...] Egfr 51.8 >60 13 Laboratory test 02/11/2013 [facility] C Reactive 0.6 mg/dL High Less than finding [address] Protein 0.5 [place] [address] [phone] Basic Metabolic 01/30/2013 [facility] Sodium 134 mmol/L 133- [address] [place] [address] [phone] Potassium 4.8 mmol/L 3.5-5.0 Chloride 102 mmol/L 101-111 Co2 Carbon Dioxide 24.0 mmol/L 22-32 Anion Gap 8.0 mmol/L 2-11 Glucose 261 mg/dL High 70-100 Blood Urea Nitrogen 29 mg/dL High 6-24 Creatinine 2.10 mg/dL High 0.50-1.40 BUN/Creatinine Ratio 13.8 8-20 Calcium 9.0 mg/dL 8.1-9.9 Egfr Non- 33.7 >60 Egfr 43.4 >60 14 CBC Auto Diff 01/30/2013 [facility] White Blood 10.3 10^3/uL 4.8-10.[address] [place] [address] [phone] Red Blood Count 3.46 10^6/uL Low 4.0-5.4 [...] Blood Cells % 0.1 Laboratory test 01/13/2013 [facility] Glucose 399 mg/dL High 70-[address] [place] [id number] [phone] 1 SEE RESULT BELOW Name: KATY SINGLETARY : [address]: Ector Mcwilliams MD Acct: [id number] Unit: [id number] AGE: 53 Location: [facility] Re06/03/18 SEX: M Status: REG REF SPEC: [id number] ANGELES: 06/04/18-[address] [facility] [address]: Ector Mcwilliams MD REQ: [id number] RECD: 06/04/18 STATUS: COMP _ SOURCE: STOOL SPDESC: ORDERED: C. diff PCR, Stool Culture COMMENTS: [id number] ADDED 06/05/18 TO [id number] SPECIMEN IN CUP YELLOW TOP C S [...] CONTINUED ON NEXT PAGE DEPARTMENT OF PATHOLOGY, [address] [place] [address] Juan Deleon M.D. Director [facility] # [id number] Patient: KATY SINGLETARY [id number] (Continued) Specimen: [id number] Collected: 06/04/18 Received: 06/04/18 (Continued) Procedure Result Reported Site C. difficile PCR Final (continued) 06/04/18- 1256 * ML - [facility] . END OF REPORT DEPARTMENT OF PATHOLOGY, [address] [place] [address] Juan Deleon M.D. Director [facility] # [id number] 2 Because ethnic data is not always [...] [address]: Amparo Landis NP Acct: [id number] Unit: [id number] AGE: 53 Location: WOUND Re03/29/18 SEX: M Status: REG REF SPEC: [id number] ANGELES: 03/29/18-[address] [facility] [address]: Amparo Landis NP REQ: [id number] RECD: 03/29/189273 STATUS: COMP [facility] DR: Lety Santamaria [facility] _ SOURCE: TISSUE SPDESC:RIGHT ORDERED: Tissue Cult/GS [...] CONTINUED ON NEXT PAGE DEPARTMENT OF PATHOLOGY, [address] [place] [address] Juan Deleon M.D. Director [facility] # [id number] Patient: KATY SINGLETARY [id number] (Continued) Specimen: [id number] Collected: 03/29/18 Received: 03/29/18457 (Continued) Procedure Result Reported Site Tissue Culture [...] . END OF REPORT DEPARTMENT OF PATHOLOGY, [address] [place] [address] Juan Deleon M.D. Director [facility] # [id number] 5 Because ethnic data is not always [...] and in selective patients <6.0%.Please refer to [place] [employer] Diabetic care guidelines for further [...] <15 (or dialysis) 12 RUN DATE: 02/21/13 [facility] LAB LIVE PAGE 1 RUN TIME: [address] [place] [address] Specimen Inquiry Name: KATY SINGLETARY : [address]: Mono Marcelino Acct: [id number] Unit: [id number] AGE: 48 Location: WOUND Re02/21/13 SEX: M Status: REG RCR SPEC: [id number] ANGELES: 02/19/[address]: Mono Marcelino DPM REQ: [id number] RECD: 02/19/13 STATUS: ROM OZUNA DR: Ector Glasgow MD _ SOURCE: TOE SPDESC:RIGHT ORDERED: Culture Stain Procedure Result Verified Site Wound/Misc Gram Stain Final 02/19/13- 1422 ML No Polys Observed No Organisms Seen Wound/Misc Culture Final 02/21/13- 1112 ML Organism 1 NORMAL KEVIN Quantity 1+ END OF REPORT * ML=Testing performed at Main Lab DEPARTMENT OF PATHOLOGY, [address] [place] [address] Juan Deleon M.D. Director [facility] Permit #[id number] 13 Because ethnic data is not always [...] dialysis) Procedures Date Code Description Status 07/01/2018 94735 ECHO Transthorasic Realtime 2D W Doppler & Color Flow Hosp Completed 05/31/2018 00668 Removal Devitalization Tissue Wound Less Than Equal 20 Completed Square CM 05/17/2018 29412 I&D Of Abscess Complicated Completed 05/10/2018 42701 Moderate Sedation Services; Same Phys Each Additional 15 Completed Mins 05/10/2018 63508 Moderate Sedation Services; Same Phys Intl 15 Mins; PT >=5 Completed Years 05/10/2018 85769 Ultrasound Guidance For Vascular Access Completed 05/10/2018 97068 Dialysis Circuit W/ Transluminal Balloon Angioplasty, Completed Peripheral 04/12/2018 43527 Chemical Cautery Granulation Tissue Completed 04/05/2018 64095 Apply Total Contact Leg Cast Completed 03/29/2018 28197 Debridement Skin,& sq Tissue Completed 03/22/2018 79030 Apply Total Contact Leg Cast Completed 03/15/2018 80175 Removal Devitalization Tissue Wound Less Than Equal 20 Completed Square CM 03/01/2018 97166 Apply Total Contact Leg Cast Completed 02/21/2018 91929 Removal Devitalization Tissue Wound Less Than Equal 20 Completed Square CM 02/15/2018 40908 Apply Total Contact Leg Cast Completed 02/08/2018 40154 Apply Total Contact Leg Cast Completed 01/18/2018 07379 Apply Total Contact Leg Cast Completed 01/11/2018 96278 Apply Total Contact Leg Cast Completed 01/04/2018 92522 Debridement Skin,& sq Tissue Completed 12/03/2017 30380 Removal Of Tunneled Central Venous Cath W/O Subcutaneous Completed Port/ABALONE DIVER 05/10/2017 32005 Amputation Foot Midtarsal Completed 05/10/2017 88260 Amputation Foot Midtarsal Completed 05/10/2017 29555 Transfer Tendon Leg Or Ankle Superficial Completed 05/10/2017 18537 Transfer Tendon Leg Or Ankle Superficial Completed 05/10/2017 91968 Tenotomy Achilles Tendon General Anesthesia Completed 04/23/2017 91040 EKG, Interpretation Only Completed 03/30/2017 26133 EKG Tracing & Interpretation Completed 03/28/2017 71316 Rad Exam; Foot Comp Completed 03/02/2017 45135 Short Leg Cast Completed 02/19/2017 75193 Amputation Foot Transmetatarsal Completed 02/19/2017 73827 Amputation Foot Transmetatarsal Completed 01/31/2017 79840 Treadmill Interp/Report Only Completed 01/31/2017 34530 Stress Test Supervsn W/Out I/R Completed 01/30/2017 13964 ECHO Transthorasic Realtime 2D W Doppler & Color Flow Hosp Completed 01/23/2017 06551 Fluoroscopic Guidance For Cent Completed 01/23/2017 84715 Insertion Tunneled Cent Venous Cathr W/O Subcut Port/Pump Completed 5Yrs> 01/21/2017 67034 EKG, Interpretation Only Completed 01/19/2017 53571 EKG, Interpretation Only Completed 01/19/2017 38701 Insert Non-Tunneled Venous Catether Completed 08/19/2015 70457 Apply Total Contact Leg Cast Completed 08/10/2015 82331 Removal Devitalization Tissue Wound Less Than Equal 20 Completed Square 08/03/2015 47551 Removal Devitalization Tissue Wound Less Than Equal 20 Completed Square 07/27/2015 44819 Removal Devitalization Tissue Wound Less Than Equal 20 Completed Square 07/20/2015 67033 Removal Devitalization Tissue Wound Less Than Equal 20 Completed Square 07/13/2015 98586 Removal Devitalization Tissue Wound Less Than Equal 20 Completed Square 07/06/2015 65773 Removal Devitalization Tissue Wound Less Than Equal 20 Completed Square 06/29/2015 99228 Removal Devitalization Tissue Wound Less Than Equal 20 Completed Square 06/22/2015 99122 Removal Devitalization Tissue Wound Less Than Equal 20 Completed Square 06/15/2015 98257 Removal Devitalization Tissue Wound Less Than Equal 20 Completed Square 06/08/2015 56505 Removal Devitalization Tissue Wound Less Than Equal 20 Completed Square 06/01/2015 34398 Removal Devitalization Tissue Wound Less Than Equal 20 Completed Square 05/25/2015 91686 Removal Devitalization Tissue Wound Less Than Equal 20 Completed Square CM 05/18/2015 86500 Removal Devitalization Tissue Wound Less Than Equal 20 Completed Square CM 05/11/2015 98190 Removal Devitalization Tissue Wound Less Than Equal 20 Completed Square CM 05/04/2015 03500 Removal Devitalization Tissue Wound Less Than Equal 20 Completed Square CM 12/29/2014 65129 Short Leg Cast Completed 12/17/2014 54507 Amputation Foot Transmetatarsal Completed 12/17/2014 53124 Amputation Foot Transmetatarsal Completed 01/14/2013 31885 EKG, Interpretation Only Completed Encounters Type Date Location Provider Dx Diagnosis Office Visit 06/28/2018 [facility] M86.9 Osteomyelitis, 11:00a Infectious Vahid, CHEPE unspecified Diseases R94.5 Abnormal results of liver function studies E11.621 Type 2 diabetes mellitus with foot ulcer L97.519 Non-prs chronic ulcer oth prt right foot w unsp severity E11.69 Type 2 diabetes mellitus with other specified complication Office Visit 06/17/2018 10:41a [facility] B17.9 Acute viral Infectious Kathy Mcwilliams hepatitis, Diseases unspecified E11.69 Type 2 diabetes mellitus with other specified complication M86.9 Osteomyelitis, unspecified E11.22 Type 2 diabetes mellitus w diabetic chronic kidney disease N18.6 End stage renal disease Office Visit 06/17/2018 8:45a [facility] Darrick Esposito R94.5 Abnormal Assoc,manuel Paul MD results of Hospitalists liver function studies G93.40 Encephalopathy, unspecified M86.679 Other chronic osteomyelitis, unspecified ankle and foot N18.6 End stage renal disease Z99.2 Dependence on renal dialysis Office Visit 06/16/2018 8:44a [facility] Darrick Esposito K72.00 Acute and Assoc,manuel Paul MD subacute Hospitalists hepatic failure without coma G93.41 Metabolic encephalopathy R94.5 Abnormal results of liver function studies M86.671 Other chronic osteomyelitis, right ankle and foot D69.6 Thrombocytopenia, unspecified N18.6 End stage renal disease R19.7 Diarrhea, unspecified Z99.2 Dependence on renal dialysis Office Visit 06/15/2018 8:44a [facility] Darrick Vaibhav K72.00 Acute and Assocmanuel MD subacute Hospitalists hepatic failure without coma G93.41 Metabolic encephalopathy E87.8 Oth disorders of electrolyte and fluid balance, [facility] M86.671 Other chronic osteomyelitis, right ankle and foot D69.6 Thrombocytopenia, unspecified N18.6 End stage renal disease R19.7 Diarrhea, unspecified R94.5 Abnormal results of liver function studies Office Visit 06/14/2018 9:48a [facility] [place]7.9 Acute viral Infectious Kathy Mciwlliams hepatitis, Diseases unspecified E11.22 Type 2 diabetes mellitus w diabetic chronic kidney disease N18.6 End stage renal disease E11.69 Type 2 diabetes mellitus with other specified complication M86.9 Osteomyelitis, unspecified Office Visit 06/14/[address] [facility] M86.671 Other chronic 8:44a Assocmanuel M.D. osteomyelitis, Hospitalists right ankle and foot D69.6 Thrombocytopenia, unspecified K72.00 Acute and subacute hepatic failure without coma G93.41 Metabolic encephalopathy R19.7 Diarrhea, unspecified N18.6 End stage renal disease Z99.2 Dependence on renal dialysis Office Visit 06/13/2018 9:47a [facility] Ector Spencer B17.9 Acute viral Infectious Kathy Mcwilliams hepatitis, Diseases unspecified E11.22 Type 2 diabetes mellitus w diabetic chronic kidney disease N18.6 End stage renal disease Office Visit 06/13/[address] [facility] M86.271 Subacute 8:43a Assocmanuel M.D. osteomyelitis, Hospitalists right ankle and foot E11.621 Type 2 diabetes mellitus with foot ulcer L97.519 Non-prs chronic ulcer oth prt right foot w unsp severity K72.00 Acute and subacute hepatic failure without coma G93.41 Metabolic encephalopathy N18.6 End stage renal disease Z99.2 Dependence on renal dialysis R19.7 Diarrhea, unspecified Office Visit 06/12/[address] [facility] M86.271 Subacute 8:43a Assmanuel alvarez M.D. osteomyelitis, Hospitalists right ankle and foot G93.41 Metabolic encephalopathy R19.7 Diarrhea, unspecified N18.6 End stage renal disease Z99.2 Dependence on renal dialysis [facility] K[facility] Acute and Assocmanuel M.D. subacute Hospitalists hepatic failure without coma G93.41 Metabolic encephalopathy R19.7 Diarrhea, unspecified R79.89 Other specified abnormal findings of blood chemistry N18.6 End stage renal disease [facility].0 Hyp chr kidney Assoc,manuel Chavez disease w Hospitalists stage 5 chr kidney disease or Esrd N18.6 End stage renal disease Z99.2 Dependence on renal dialysis R74.8 Abnormal levels of other serum enzymes R11.10 Vomiting, unspecified R19.7 Diarrhea, unspecified R79.89 Other specified abnormal findings of blood chemistry R41.82 Altered mental status, unspecified Office Visit 06/10/2018 9:42a [facility] E[facility] [place] B17.9 Acute viral Infectious Kathy Mcwilliams hepatitis, Diseases unspecified R19.7 Diarrhea, unspecified E11.40 Type 2 diabetes mellitus with diabetic neuropathy, 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 subacute Hospitalists hepatic failure without coma I12.0 Hyp chr kidney disease w stage 5 chr kidney disease or Esrd Z99.2 Dependence on renal dialysis R50.9 Fever, unspecified R79.89 Other specified abnormal findings of blood chemistry R41.82 Altered mental status, unspecified R19.7 Diarrhea, unspecified Office Visit 06/08/2018 8:41a [facility] K72.00 Acute and Assoc,manuel Mcghee M.D. subacute Hospitalists hepatic failure without coma R50.9 Fever, unspecified I12.0 Hyp chr kidney disease w stage 5 chr kidney disease or Esrd N18.6 End stage renal disease Z99.2 Dependence on renal dialysis R79.89 Other specified abnormal findings of blood chemistry R41.82 Altered mental status, unspecified R19.7 Diarrhea, unspecified Office Visit 06/07/2018 8:40a [facility] K72.00 Acute and Assoc,manuel Mcghee M.D. subacute Hospitalists hepatic failure without coma R50.9 Fever, unspecified I12.0 Hyp chr kidney disease w stage 5 chr kidney disease or Esrd Z99.2 Dependence on renal dialysis N18.6 End stage renal disease R41.82 Altered mental status, unspecified Office Visit 06/07/2018 10:45a [facility] Fitz Leon L89.893 Pressure ulcer Center AT [facility] , FACS of other site, stage 3 E11.621 Type 2 diabetes mellitus with foot ulcer M86.271 Subacute osteomyelitis, right ankle and foot I73.9 Peripheral vascular disease, unspecified N18.6 End stage renal disease R09.89 Oth symptoms and signs involving the circ and resp systems M21.6x1 Other acquired deformities of right foot Office Visit 05/31/2018 [facility] M86.271 Subacute 10:50a For Infectious Kathy Mcwilliams osteomyelitis, Diseases right ankle and foot E11.40 Type 2 diabetes mellitus with diabetic neuropathy, unsp R19.7 Diarrhea, unspecified T36.0x5A Adverse effect of penicillins, initial encounter Office Visit 05/24/2018 10:45a Wound Care Giovany Casas89.893 Pressure ulcer Center AT [facility] [place] MD FACS of other site, stage 3 E11.621 Type 2 diabetes mellitus with foot ulcer M86.271 Subacute osteomyelitis, right ankle and foot I73.9 Peripheral vascular disease, unspecified N18.6 End stage renal disease R09.89 Oth symptoms and signs involving the circ and resp systems M21.6x1 Other acquired deformities of right foot Office Visit 05/17/2018 [facility] M86.271 Subacute 10:50a For [...] Fitz Leon L89.893 Pressure ulcer Center AT [facility] MD FACS of other site, stage 3 E11.621 Type 2 diabetes mellitus with foot ulcer M86.271 Subacute osteomyelitis, right ankle and foot I73.9 Peripheral vascular disease, unspecified N18.6 End stage renal disease R09.89 Oth symptoms and signs involving the circ and resp systems M21.6x1 Other acquired deformities of right foot Office Visit 04/26/2018 11:00a Wound Care Fitz Leon, L89.893 Pressure ulcer Center AT [facility] [place] , ASHLI of other site, stage 3 E11.621 Type 2 diabetes mellitus with foot ulcer I73.9 Peripheral vascular disease, unspecified N18.6 End stage renal disease R09.89 Oth symptoms and signs involving the circ and resp systems M21.6x1 Other acquired deformities of right foot Office Visit 01/04/2018 [facility] Fitz Bermudez E11.621 Type 2 diabetes 8:00a AT [facility] MD Carolyn, mellitus with FACS foot ulcer Office Visit 05/18/2017 Post Phillip Sampson J96.01 Acute respiratory 8:39a Assmanuel alvarez M.D. failure with Hospitalists hypoxia S91.302A Unspecified open wound, left foot, initial encounter E11.8 Type 2 diabetes mellitus with unspecified complications I10 Essential (primary) hypertension Office Visit 05/17/2017 8:37a Post Phillip Page96.01 Acute respiratory Assmanuel alvarez M.D. failure with Hospitalists hypoxia S91.302A Unspecified open wound, left foot, initial encounter E11.8 Type 2 diabetes mellitus with unspecified complications I10 Essential (primary) hypertension Office Visit 05/16/2017 8:34a Post Phillip Page96.01 Acute respiratory Assmanuel alvarez M.D. failure with Hospitalists hypoxia S91.302A Unspecified open wound, left foot, initial encounter E11.8 Type 2 diabetes mellitus with unspecified complications I10 Essential (primary) hypertension Office Visit 05/15/2017 8:33a Post Phillip Page96.01 Acute respiratory Assmanuel alvarez M.D. failure with Hospitalists hypoxia S91.302A Unspecified open wound, left foot, initial encounter E11.8 Type 2 diabetes mellitus with unspecified complications I10 Essential (primary) hypertension Office Visit 05/14/2017 Post Camilo Leong96.01 Acute respiratory 8:32a Assmanuel alvarezD. failure with Hospitalists hypoxia S91.302A Unspecified open wound, left foot, initial encounter E11.8 Type 2 diabetes mellitus with unspecified complications I10 Essential (primary) hypertension [facility] Acute respiratory 8:24a manuel Sosa M.D. failure with Hospitalists hypoxia S91.302A Unspecified open wound, left foot, initial encounter E11.8 Type 2 diabetes mellitus with unspecified complications I10 Essential (primary) hypertension [facility] Acute respiratory 8:21a manuel Sosa M.D. failure with Hospitalists hypoxia S91.302A Unspecified open wound, left foot, initial encounter E11.8 Type 2 diabetes mellitus with unspecified complications I10 Essential (primary) hypertension [facility] J[facility].01 Acute respiratory 8:20a manuel Sosa M.D. failure with Hospitalists hypoxia S91.302A Unspecified open wound, left foot, initial encounter E11.8 Type 2 diabetes mellitus with unspecified complications I10 Essential (primary) hypertension Office Visit 05/10/2017 10:03a Colin Torres I73.9 Peripheral Medicine Of Real Coelho M.D. vascular disease, unspecified E11.8 Type 2 diabetes mellitus with unspecified complications Office Visit [facility]/10[facility] J96.01 Acute respiratory 8:19a manuel Sosa M.D. failure with Hospitalists hypoxia S91.302A Unspecified open wound, left foot, initial encounter E11.8 Type 2 diabetes mellitus with unspecified complications I10 Essential (primary) hypertension Office Visit 05/09/2017 8:18a [facility] Chema Dukes, J96.01 Acute respiratory Assmanuel alvarez MD failure with Hospitalists hypoxia S91.302A Unspecified open wound, left foot, initial encounter E11.8 Type 2 diabetes mellitus with unspecified complications I10 Essential (primary) hypertension Office Visit 05/09/2017 Orthopedic Shima M86.672 Other chronic 11:40a Services Of VANDANA Harris osteomyelitis, left ankle and foot Office Visit 05/08/2017 [facility] Chema Dukes, J96.01 Acute respiratory 8:08a manuel Sosa MD failure with Hospitalists hypoxia S91.302A Unspecified open wound, left foot, initial encounter E11.8 Type 2 diabetes mellitus with unspecified complications I10 Essential (primary) hypertension Office Visit 05/07/2017 7:56a [facility] Chema Dukes, J96.01 Acute respiratory manuel Sosa MD failure with Hospitalists hypoxia S91.302A Unspecified open wound, left foot, initial encounter E11.8 Type 2 diabetes mellitus with unspecified complications I10 Essential (primary) hypertension Office Visit 04/25/2017 [facility] Philly Miller J96.01 Acute respiratory 10:09a manuel Sosa M.D. failure with Hospitalists hypoxia S91.302A Unspecified open wound, left foot, initial encounter E11.8 Type 2 diabetes mellitus with unspecified complications I10 Essential (primary) hypertension Office Visit 04/24/2017 [facility] Philly Miller J96.01 Acute respiratory 10:08a manuel Sosa M.D. failure with Hospitalists hypoxia S91.302A Unspecified open wound, left foot, initial encounter E11.8 Type 2 diabetes mellitus with unspecified complications I10 Essential (primary) hypertension Office Visit 04/23/2017 [facility] Josynicole Mosquera J96.01 Acute 10:06a manuel Sosa [place] respiratory Hospitalists failure with hypoxia S91.302A Unspecified open wound, left foot, initial encounter E11.8 Type 2 diabetes mellitus with unspecified complications I10 Essential (primary) hypertension Office Visit 03/30/2017 2:30p Cardiology William Hidalgo I34.0 Nonrheumatic mitral Services Of Real Chavez M.D., (valve) AT [facility], FASNC insufficiency I10 Essential (primary) hypertension Z01.810 Encounter for preprocedural cardiovascular examination M86.672 Other chronic osteomyelitis, left ankle and foot Office Visit 02/21/2017 7:22a [facility] [place] S. E11.621 Type 2 manuel Sosa, N.P. 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 E11.621 Type 2 Assoc,manuel Pierre NJoeyPJoey diabetes Hospitalists mellitus with foot ulcer E11.8 Type 2 diabetes mellitus with unspecified complications N18.6 End stage renal disease I10 Essential (primary) hypertension [facility] End stage Assoc,manuel Pierre NBe[place] renal disease Hospitalists E11.621 Type 2 diabetes mellitus with foot ulcer E11.8 Type 2 diabetes mellitus with unspecified complications I10 Essential (primary) hypertension Office Visit 02/18/2017 9:37a Orthopedic Adrián Louis, I96 Gangrene, not Services Of Isabel Chavez elsewhere classified Office Visit 02/18/2017 7:20a [facility] Philly Miller, N18.6 End stage renal Assocmanuel M.D. disease Hospitalists E11.621 Type 2 diabetes mellitus with foot ulcer E11.8 Type 2 diabetes mellitus with unspecified complications I10 Essential (primary) hypertension Office Visit 02/17/2017 7:19a [facility] Julius Avila, N18.6 End stage Assocmanuel N.P. renal disease Hospitalists E11.621 Type 2 diabetes mellitus with foot ulcer E11.8 Type 2 diabetes mellitus with unspecified complications I10 Essential (primary) hypertension Office Visit 01/30/2017 7:34a [facility] Taryn R07.9 Chest pain, Assoc,manuel Monaco M.D. unspecified Hospitalists I50.9 Heart failure, unspecified N18.6 End stage renal disease Z99.2 Dependence on renal dialysis Office Visit 2017 8:03a [facility] Adrián N17.9 Acute kidney Assoc,manuel Rawls M.D. failure, Hospitalists unspecified E87.5 Hyperkalemia N18.5 Chronic kidney disease, stage 5 E83.39 Other disorders of phosphorus metabolism Office Visit 01/23/2017 8:02a [facility] Adrián N17.9 Acute kidney Assoc,manuel Rawls M.D. failure, Hospitalists unspecified E87.5 Hyperkalemia E83.39 Other disorders of phosphorus metabolism N18.5 Chronic kidney disease, stage 5 Office Visit 01/22/2017 8:00a [facility] Adrián N17.9 Acute kidney Assoc,manuel Rawls M.D. failure, Hospitalists unspecified E87.5 Hyperkalemia E83.39 Other disorders of phosphorus metabolism N18.5 Chronic kidney disease, stage 5 Office Visit 01/21/2017 7:51a [facility] Adrián N17.9 Acute kidney Assoc,manuel Rawls M.D. failure, Hospitalists unspecified E87.5 Hyperkalemia E83.39 Other disorders of phosphorus metabolism N18.5 Chronic kidney disease, stage 5 Office Visit 01/20/2017 7:50a [facility] Adrián N17.9 Acute kidney Assoc,manuel Rawls M.D. failure, Hospitalists unspecified N18.5 Chronic kidney disease, stage 5 E87.5 Hyperkalemia E83.39 Other disorders of phosphorus metabolism Office Visit 01/19/2017 [facility] Nitin Licea N17.9 Acute kidney 7:47a Assocmanuel II, M.D. failure, Hospitalists unspecified E87.5 Hyperkalemia N18.5 Chronic kidney disease, stage 5 E83.39 Other disorders of phosphorus metabolism Office Visit 08/26/2015 11:34a Wound Care Simba Chapa M10.079 Idiopathic gout , Center AT [facility] [place] Kathy Phillip unspecified ankle and foot E11.621 Type 2 diabetes mellitus with foot ulcer M86.671 Other chronic osteomyelitis, right ankle and foot L97.411 Non-prs chr ulcer of right heel and midft lmt to brkdwn skin Office Visit 08/17/2015 2:24p Wound Care Simba Chapa M10.079 Idiopathic gout , Center AT [facility] [place] Kathy Phillip unspecified ankle and foot E11.621 Type 2 diabetes mellitus with foot ulcer M86.671 Other chronic osteomyelitis, right ankle and foot Office Visit 08/10/2015 10:50a [facility] Z89.421 Acquired Infectious Kathy Mcwilliams absence of Diseases other right toe(s) L97.519 Non-prs chronic ulcer oth prt right foot w unsp severity Office Visit 07/27/2015 9:30a [facility] Z89.421 Acquired Infectious Kathy Mcwilliams absence of Diseases other right toe(s) E11.621 Type 2 diabetes mellitus with foot ulcer L97.519 Non-prs chronic ulcer oth prt right foot w unsp severity Office Visit 06/10/2015 10:29a Wound Care Simba Chapa E11.321 Type 2 diab w Center AT [facility] [place] Kathy 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 ankle and foot Office Visit 04/28/2015 Orthopedic Adrián Quevedo86.Costa Other chronic 2:50p Services Of Kathy Louis osteomyelitis, right C.M.A. ankle and foot Office Visit 04/15/2015 Orthopedic Adrián Quevedo86.67Rayo Other chronic 11:15a Services Of Kathy Louis osteomyelitis, right C.M.A. 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 failure, Hospitalists unspecified M86.9 Osteomyelitis, unspecified A41.9 Sepsis, unspecified organism E13.9 Other specified diabetes mellitus without complications Office Visit 12/20/2014 [facility] Philly Quevedo86.9 Osteomyelitis, 12:12p Assmanuel alvarez M.D. unspecified Hospitalists A41.9 Sepsis, unspecified organism N17.9 Acute kidney failure, unspecified E13.9 Other specified diabetes mellitus without complications [facility] Osteomyelitis, 12:12p Assmanuel alvarez M.D. unspecified Hospitalists A41.9 Sepsis, unspecified organism N17.9 Acute kidney failure, unspecified E13.9 Other specified diabetes mellitus without complications Office Visit 12/18/2014 [facility] Philly Angela, N17.9 Acute kidney 12:11p Assmanuel alvarez M.D. failure, Hospitalists unspecified M76.9 Unspecified enthesopathy, lower limb, excluding foot A41.9 Sepsis, unspecified organism E13.9 Other specified diabetes mellitus without complications Office Visit 12/17/2014 7:52a [facility] E11.52 Type 2 diabetes [...] 3 (moderate) [facility]9 Osteomyelitis, 12:10p Assmanuel alvarez M.D. unspecified Hospitalists A41.9 Sepsis, unspecified organism N17.9 Acute kidney failure, unspecified E13.9 Other specified diabetes mellitus without complications Office Visit 12/16/2014 Orthopedic Dara M86.9 Osteomyelitis, 7:00a Services Of Isabel Vergara M.D. unspecified Office Visit 12/16/2014 [facility] [place] S. M86.9 Osteomyelitis, 12:08p Assocmanuel, N.PJoey unspecified Hospitalists A41.9 Sepsis, unspecified organism N17.9 Acute kidney failure, unspecified E13.9 Other specified diabetes mellitus without complications Office Visit 03/18/2013 [facility] 681.10 Cellulitis & 9:30a For Gregorio Mcwilliams M.D. Abscess Toe Unspec Diseases Office Visit 02/25/2013 [facility]. 730.00 Osteomyelitis Acute 9:30a For Gregorio Mcwilliams M.D. Site Unspec Diseases 681.10 Cellulitis & Abscess Toe Unspec Office Visit 02/04/2013 [facility] 730.00 Osteomyelitis Acute 9:30a For Infectious Kathy Mcwilliams Site Unspec Diseases 588.9 Renal Function Impairment Disorders Unspec Office Visit 2013 11:06a [facility] Taryn 681.10 Cellulitis & Assoc,manuel Monaco M.D. Abscess Toe Hospitalists Unspec 730.00 Osteomyelitis Acute Site Unspec 250.02 Diabetes Mellitus W/O Compl Type II Or Unspec Type Uncontrol 584.5 Acute Kidney Failure With Lesion Of Tubular Necrosis Office Visit 01/23/2013 11:06a [facility] Taryn 681.10 Cellulitis & Assoc,manuel Monaco M.D. Abscess Toe Hospitalists Unspec 250.02 Diabetes Mellitus W/O Compl Type II Or Unspec Type Uncontrol 584.5 Acute Kidney Failure With Lesion Of Tubular Necrosis Office Visit 01/22/2013 [facility] Cellulitis & Assoc,manuel Monaco M.D. Abscess Toe Hospitalists Unspec 250.02 Diabetes Mellitus W/O Compl Type II Or Unspec Type Uncontrol 584.5 Acute Kidney Failure With Lesion Of Tubular Necrosis Office Visit 01/21/2013 11:05a [facility] Taryn 681.10 Cellulitis & Assoc,manuel Monaco M.D. Abscess Toe Hospitalists Unspec 250.02 Diabetes Mellitus W/O Compl Type II Or Unspec Type Uncontrol Office Visit 01/21/2013 [facility] 730.27 Osteomyelitis 9:16a Gregorio Mcwilliams M.D. Unspec Ankle & Diseases Foot Office Visit 01/20/2013 [facility] Philly 681.10 Cellulitis & 11:05a Assmanuel alvarez M.D. Abscess Toe Unspec Hospitalists 250.02 Diabetes Mellitus W/O Compl Type II Or Unspec Type Uncontrol 584.5 Acute Kidney Failure With Lesion Of Tubular Necrosis Office Visit 01/19/2013 [facility] Philly Miller 681.10 Cellulitis & 11:05a Assmanuel alvarez M.D. Abscess Toe Hospitalists Unspec 250.02 Diabetes Mellitus W/O Compl Type II Or Unspec Type Uncontrol 584.5 Acute Kidney Failure With Lesion Of Tubular Necrosis [facility] 6[facility].10 Cellulitis & 11:04a manuel Sosa M.D. Abscess Toe Hospitalists Unspec 250.02 Diabetes Mellitus W/O Compl Type II Or Unspec Type Uncontrol 584.5 Acute Kidney Failure With Lesion Of Tubular Necrosis Office Visit 01/17/2013 11:04a [facility] [place] Tsang 681.10 Cellulitis & Assoc,pc Desi Pierre Abscess Toe Hospitalists Unspec 250.02 Diabetes Mellitus W/O Compl Type II Or Unspec Type Uncontrol 584.5 Acute Kidney Failure With Lesion Of Tubular Necrosis Office Visit 01/16/2013 11:[facility], 584.5 Acute Kidney Assmanule alvarez M.D. Failure With Hospitalists Lesion Of Tubular Necrosis 681.10 Cellulitis & Abscess Toe Unspec 250.02 Diabetes Mellitus W/O Compl Type II Or Unspec Type Uncontrol Office Visit 01/16/2013 [facility] 730.27 Osteomyelitis 2:16p Gregorio Mcwilliams M.D. Unspec Ankle & Diseases Foot Office Visit 01/15/2013 [facility] 730.27 Osteomyelitis 12:10p Gregorio Mcwilliams M.D. Unspec Ankle & Diseases Foot [facility] Acute Kidney 11:03a manuel Sosa M.D. Failure With Hospitalists Lesion Of Tubular Necrosis 681.10 Cellulitis & Abscess Toe Unspec 250.02 Diabetes Mellitus W/O Compl Type II Or Unspec Type Uncontrol 995.92 Severe Sepsis Office Visit 01/14/2013 11:03a [facility] Philly Miller, 995.92 Severe Sepsis Assmanuel alvarez M.D. Hospitalists 681.10 Cellulitis & Abscess Toe Unspec 250.02 Diabetes Mellitus W/O Compl Type II Or Unspec Type Uncontrol 584.5 Acute Kidney Failure With Lesion Of Tubular Necrosis Office Visit 01/13/2013 11:02a [facility] Philly Miller, 995.92 Severe Sepsis Assmanuel alvarez M.D. Hospitalists 681.10 Cellulitis & Abscess Toe Unspec 250.02 Diabetes Mellitus W/O Compl Type II Or Unspec Type Uncontrol 584.5 Acute Kidney Failure With Lesion Of Tubular Necrosis Office Visit 06/06/2009 12:15a [facility] 250.00 Diabetes manuel Sosa M.D. Mellitus W/O Hospitalists Compl Type II Or Unspec Controlled 730.20 Osteomyelitis Unspec Site Unspec 401.9 Hypertension Unspec Office Visit 06/05/2009 12:15a [facility] 250.00 Diabetes manuel Sosa M.D. Mellitus W/O Hospitalists Compl Type II Or Unspec Controlled Office Visit 06/04/2009 12:15a [facility] 250.00 Diabetes manuel Sosa M.D. Mellitus W/O Hospitalists Compl Type II Or Unspec Controlled 593.9 Kidney & Ureter Disorders Unspec Office Visit 06/02/2009 [facility], 730.20 Osteomyelitis 12:15a manuel Sosa M.D. Unspec Site Unspec Hospitalists 250.00 Diabetes Mellitus W/O Compl Type II Or Unspec Controlled Office Visit 06/01/2009 [facility], 730.20 Osteomyelitis 12:15a manuel Sosa M.D. Unspec Site Unspec Hospitalists Office Visit 05/31/2009 [facility], 730.20 Osteomyelitis 4:00a manuel Sosa M.D. Unspec Site Unspec Hospitalists Plan of Treatment Future Appointment(s):07/24/2018 1:00 pm - Josy Redding NP at [facility]/08/2019 11:30 am - William Chavez M.D., FACC, FASID at [facility]
--- OUTSIDE RECORDS SUMMARY | 2018-08-07 12:13 | XMS REPORT | Continuity of Care Document ---
:1965 External Reference #:[id number] Author Name Ta Baxter D.O. Address [address] [place] [id number] Care Team Providers Name Role Phone HCP given Primary Care Physician Unavailable Payers Date Identification Numbers Payment Provider Subscriber Effective: Policy Number: Zia Singletary 2017 [id number] Ind/Ppo/Hmo/Pos PayID: [id number] [address] [address] [place] [address] Effective: 1999 Policy Number: [facility] Katy Singletary [id number] PayID: [id number] [address] [place] [address] Advance Directives Description No Information Available Problems [...] History Date Family Member(s) Observation Comments Father LA Mother due to Liver Cancer () Paternal Grandmother Diabetes, Nos Maternal Grandfather Heart Disease Maternal Grandfather due to Heart Disease () Maternal Uncles due to CAD () Social History Type Date Description Comments Sex Unknown Education High School Completed Marital Status 12/2016 Lives With Alone Has daughter, but she is working on her Masters' degree, down in [place], [place]. Occupation [employer] Work Status Not Currently Working disability 2017 Years Employed over 30 years 20 years spent working at [employer] 06/06/2018 Right-handed Tobacco Use Start: Unknown Denies [...] Santyl apply 1 gm ointment 60gm E11.621 [facility], 10/26/2017 - 250Unit/GM qd to wound for [...] by Unknown 04/25/2017 - 325mg Tablets mouth [id number] as 06/17/2018 needed for pain otc Azithromycin [...] CPT Code Status Date Vaccine Lot # 22658 Given 06/06/2018 Shingrix Zoster (Shingles) Vaccine (HZV) [id number] Recomb,Subnit,Adjuvanted [id number] Given 06/06/2018 Prevnar 13 [id number] Given 12/19/2017 Shingrix Zoster (Shingles) Vaccine (HZV) [id number] Recomb,Subnit,Adjuvanted 10604 Given 12/19/2017 Adacel or Boostrix, TDaP [id number] Vital Signs Date Vital Result Comment 07/09/2018 [...] H/L Range Note Venous Blood Gas 07/01/2018 [facility] Venous Blood pH 7.47 High 7.32 -7.43 [phone] Venous Pco2 53 mmHg High 41-51 Venous Po2 55.0 mmHg High 35-45 Venous O2 Saturation 89.3 % High 70-80 Venous Blood Base Excess 12.7 mmol/L High 0.0-4.0 1 Venous Bicarbonate Hco3 34.6 mmol/L High 24-28 CBC Auto Diff 07/01/2018 [facility] White Blood Count 5.0 10^3/uL N 3.5-10.8 [phone] Red Blood Count 2.50 10^6/uL Low 4.18-5.48 [...] Cells % 0.1 Laboratory test finding 07/01/2018 [facility] Lactic Acid 1.6 mmol/L N 0.5-2.0 2 [phone] Calcium Ionized 0.92 mmol/L Low 1.16-1.32 Comp Metabolic Panel 07/01/2018 [facility] Sodium 135 mmol/L N 135- 145 [phone] Chloride 91 mmol/L Low 101-111 Co2 Carbon [...] mmol/L N 2-11 Laboratory test finding 07/01/2018 [facility] Magnesium 2.0 mg/dL N 1.9-2.7 [phone] Acetaminophen < 15 g/mL 5 Ammonia 45 mcmol/L N 16-53 C Reactive Protein 11.19 mg/L High <8.01 TSH (Thyroid Stim Horm) 1.23 mcIU/mL N 0.34-5.60 Troponin-I (TnI) 0.05 ng/mL High <0.04 6 CBC Auto Diff 07/01/2018 [facility] White Blood Count 5.8 10^3/uL N 3.5-10.8 [phone] Red Blood Count 2.12 10^6/uL Low 4.18-5.48 [...] Cells % 0.1 Comp Metabolic Panel 07/01/2018 [facility] Sodium 135 mmol/L N 135- 145 [phone] Chloride 92 mmol/L Low 101-111 Co2 Carbon [...] Egfr 20.0 >60 8 Laboratory test 07/01/2018 [facility] Magnesium 1.9 mg/dL N 1.9-2.7 finding [phone] CBC Auto Diff 06/28/2018 [facility] White Blood 8.7 10^3/uL N 3.5- 10.8 [phone] Count Red Blood Count 2.50 10^6/uL Low [...] Cells % 0 Hepatitis C Antibody 06/28/2018 [facility] HCV Index 0.1 Index [phone] Hepatitis C Antibody Nonreactive Nonreactive Lipid Profile (Trig/Chol/HDL) 06/28/2018 [facility] Triglycerides 100 mg/dL 9 [phone] Cholesterol 113 mg/dL 10 HDL Cholesterol 40.0 mg/dL 11 LDL Cholesterol 53 mg/dL 12 Laboratory test 06/07/2018 [facility] Rapid Influenza SEE RESULT 13 finding [phone] A B Antigen BELOW Rapid Influenza 06/07/2018 [facility] Influenza A NEGATIVE Negative 14 A & B Molecular [phone] Molecular Influenza B Molecular NEGATIVE Negative Laboratory test finding 06/07/2018 [facility] Acetaminophen < 15 g/ mL 15 [phone] Pediatric Blood Culture SEE RESULT BELOW 16 Urine Culture And 06/07/2018 [facility] Urine Culture SEE RESULT 17 Sensitivities [phone] BELOW Laboratory test finding 06/07/2018 [facility] Blood Culture SEE RESULT 18 [phone] BELOW Urinalysis Profile 06/07/2018 [facility] Urine Color Yellow [phone] Urine Appearance Cloudy Urine Specific [place] 1.009 Low 1.010-1.030 Urine pH 9.0 N [...] Cell Present Abnormal Absent Laboratory test 06/07/2018 [facility] Partial 34.0 seconds N 26.0- 36.3 finding [phone] Thrombo Time PTT Inr/Protime 06/07/2018 [facility] Inr 1.67 High 0.77-1.02 [phone] Laboratory test 06/07/2018 [facility] C Reactive 42.00 mg/L High < 8.01 finding [phone] Protein Troponin-I (TnI) 0.07 ng/mL High <0.04 19 Comp Metabolic Panel 06/07/2018 [facility] Sodium 138 mmol/L N 135- 145 [phone] Potassium 2.8 mmol/L Low 3.5-5.0 Chloride 93 [...] 14.0 >60 20 CBC Auto Diff 06/07/2018 [facility] White Blood Count 6.9 10^3/uL N 3.5-10.8 [phone] Red Blood Count 2.31 10^6/uL Low 4.18-5.48 [...] Blood Cells % 0.1 Laboratory test 06/07/2018 [facility] Lactic Acid 1.2 mmol/L N 0.5- 2.0 21 finding [phone] Laboratory test 06/06/2018 In House Hemoglobin A1c 5.5 finding Basic Metabolic 05/10/2018 [facility] Sodium 138 mmol/L N 135-145 Panel [phone] Potassium 2.9 mmol/L Low 3.5-5.0 Chloride 92 mmol/L Low 101-111 Co2 Carbon Dioxide 36 mmol/L High 22-32 Anion Gap 10 mmol/L N 2-11 Glucose 103 mg/dL High 70-100 Blood Urea Nitrogen 15 mg/dL N 6-24 Creatinine 4.01 mg/dL High 0.67-1.17 BUN/Creatinine Ratio 3.7 Low 8-20 Calcium 9.1 mg/dL N 8.6-10.3 Egfr Non- 15.7 >60 Egfr 19.0 >60 22 CBC Auto Diff 05/10/2018 [facility] White Blood Count 7.3 10^3/uL N 3.5-10.8 [phone] Red Blood Count 2.68 10^6/uL Low 4.00-5.40 [...] Blood Cells % 0 Laboratory test 05/10/2018 [facility] Partial 33.6 N 26.0-36.3 finding [phone] Thrombo Time seconds PTT Inr/Protime 05/10/2018 [facility] Inr 1.37 High 0.77-1.02 [phone] Laboratory test 03/29/2018 [facility] Tissue SEE RESULT 23, 24 finding [phone] Culture & BELOW Sensitiv Ua Inhouse 03/08/2018 In House Ua Glucose trace Ua Specific [place] 1.005 Ua Blood +2 Ua PH 8.5 Ua Protein +3 Laboratory test finding 03/08/2018 In House Culture Throat negative Culture Throat Rapid Screen negative Urine Culture And 01/16/2018 [facility] Urine Culture SEE RESULT 25 Sensitivities [phone] BELOW Comp Metabolic Panel 01/16/2018 [facility] Sodium 140 mmol/L N 135- 145 [phone] Potassium 3.2 mmol/L Low 3.5-5.0 Chloride 93 [...] Egfr 8.6 >60 26 Urine Microalbumin 01/16/2018 [facility] Urine Creatinine 114.23 mg/dL Random [phone] Ur Microalbumin (mg/L) > 1500.0 Urine Microalbumin/Creatinine 1313.1 High <31 Urinalysis Profile 01/16/2018 [facility] Urine Color Yellow [phone] Urine Appearance Cloudy Urine Specific [place] 1.010 N 1.010-1.030 Urine pH 9.0 N [...] Epithelial Cell Present Abnormal Absent Inr/Protime 01/16/2018 [facility] Inr 1.20 High 0.77-1.02 [phone] CBC Auto Diff 01/16/2018 [facility] White Blood 7.9 10^3/uL N 3.5- 10.8 [phone] Count Red Blood Count 2.95 10^6/uL Low [...] Blood Cells % 0 Laboratory test 01/16/2018 [facility] Hemoglobin A1c 5.3 % N 4.0-5.6 27 finding [phone] (Glyco HGB) Laboratory test 10/26/2017 In House Hemoglobin A1c 5.5 finding CBC Auto Diff 07/28/2017 [facility] White Blood Count 8.7 N 3.5-10.8 [phone] 10^3/uL Red Blood Count 3.68 10^6/uL Low [...] Blood Cells % 0 Laboratory test 07/28/2017 [facility] B-Type Natriuretic 39 pg/mL 28 finding [phone] Peptide BNP Comp Metabolic 07/28/2017 [facility] Sodium 134 mmol/L Low 139-14 Panel [phone] 5 Potassium 3.2 mmol/L Low 3.5-5.0 Chloride [...] Egfr 14.4 >60 29 Laboratory test 07/28/2017 [facility] Troponin-I (TnI) 0.04 ng/mL High <0.04 30 finding [phone] TSH (Thyroid Stim Horm) 1.44 mcIU/mL N 0.34-5.60 Laboratory test 07/28/2017 [facility] Lactic Acid 1.9 mmol/L N 0.5- 2.0 31 finding [phone] Inr/Protime 07/28/2017 [facility] Inr 1.20 High 0.77-1.02 [phone] Laboratory test 07/28/2017 [facility] Troponin-I 0.03 ng/mL <0.04 finding [phone] (TnI) Type & Screen 05/21/2017 [facility] Patient Blood A Positive 32 [phone] Type Antibody Screen NEGATIVE Laboratory test 05/21/2017 [facility] Packed Cells SEE RESULTS 33 finding [phone] BELO <SEE NOTE> Laboratory test 05/07/2017 [facility] Lactic Acid 1.5 mmol/L N 0.5- 2.0 34 finding [phone] Laboratory test 05/01/2017 [facility] Surgical SEE RESULT 35 finding [phone] Interface Order BELOW Laboratory test 05/01/2017 [facility] Clotest SEE RESULT 36 finding [phone] BELOW Urinalysis 02/17/2017 [facility] Urine Color Straw Profile [phone] Urine Appearance Clear Urine Specific [place] 1.004 Low 1.010-1.030 Urine pH 9.0 N [...] Urine Bacteria Absent Absent Laboratory test 02/17/2017 [facility] Wound Culture/Sensi SEE RESULT 37 finding [phone] BELOW MRSA/S. aureus Ssti PCR SEE RESULT BELOW 38 Laboratory test 02/17/2017 [facility] Lactic Acid 0.9 mmol/L N 0.5- 2.0 39 finding [phone] Laboratory test 02/17/2017 [facility] Erythrocyte Sed 120 mm/Hr High 0-20 finding [phone] Rate Blood Culture SEE RESULT BELOW 40 CBC Auto Diff 02/17/2017 [facility] White Blood 11.8 10^3/uL High 3.5 -10.8 [phone] Count Red Blood Count 2.45 10^6/uL Low [...] Cells % 0 Laboratory test finding 02/17/2017 [facility] Uric Acid 3.1 mg/dL Low 4.4-7.6 [phone] C Reactive Protein 12.71 mg/L High < 5.00 41 Comp Metabolic Panel 02/17/2017 [facility] Sodium 135 mmol/L N 133- 145 [phone] Potassium 4.9 mmol/L N 3.5-5.0 Chloride 96 [...] Egfr 17.2 >60 42 Lipid Profile 02/15/2017 [facility] Triglycerides 121 mg/dL 43 (Trig/Chol/HDL) [phone] Cholesterol 126 mg/dL 44 HDL Cholesterol 43.4 mg/dL 45 LDL Cholesterol 58 mg/dL 46 Comp Metabolic Panel 02/15/2017 [facility] Sodium 138 mmol/L N 133- 145 [phone] Potassium 4.7 mmol/L N 3.5-5.0 Chloride 95 [...] 25.3 >60 47 CBC Auto Diff 02/15/2017 [facility] White Blood 11.5 10^3/uL High 3.5 -10.8 [phone] Count Red Blood Count 2.66 10^6/uL Low [...] Blood Cells % 0 Laboratory test 02/15/2017 [facility] TSH (Thyroid 3.28 mcIU/mL N 0.34-5.60 finding [phone] Stim Horm) Laboratory test 02/13/2017 In House Hemoglobin A1c 5.7 finding CBC Auto Diff 02/06/2017 [facility] White Blood 8.1 10^3/uL N 3.5- 10.8 [phone] Count Red Blood Count 2.48 10^6/uL Low [...] Cells % 0 Comp Metabolic Panel 02/06/2017 [facility] Sodium 137 mmol/L N 133- 145 [phone] Potassium 4.3 mmol/L N 3.5-5.0 Chloride 97 [...] 17.9 >60 48 Laboratory test finding 02/06/2017 [facility] Lipase 28 U/L N 11.0- 82.0 [phone] 1 Reference ranges based on room air. 2 [facility] Severe Sepsis and Septic Shock [...] dialysis) 4 Critical Result K:2.4 Called to [id number] at: 10:37:31 by:[id number] Read back by:[id number] Therapeutic concentration: <50 ug/mL Toxic concentration: >120 ug/mL 6 Result TnIDx:0.05 Called to [id number] at: 19:01:43 by:[id number] Read back by: [id number] Troponin-I testing on Plasma Separator Tubes (PST) has a known false positive rate of 0.20-0.40%. All positive troponins reflex immediately to secondary confirmatory testing. Using the Smartvue DxI 800 Access Immunoassay systems, the 99th percentile upper reference limit was demonstrated to be < 0.03 ng/mL. 7 Critical Result K:2.5 Called to [id number] at: 11:06:46 by:[id number] Read back by:[id number] 8 Because ethnic data is not always [...] [address]: Ellis Elise MD Acct: [id number] Unit: [id number] AGE: 53 Location: ED Re06/07/18 SEX: M Status: REG ER SPEC: [id number] ANGELES: 06/07/18-1500 [facility] DR: Ellis Elise MD REQ: [id number] RECD: 06/07/18150 STATUS: ROM OZUNA DR: Lety JARVIS _ SOURCE: NASAL SPDESC: ORDERED: Flu A B Request Procedure Result Reported Site Rapid Influenza A B Request Final 06/07/18- 1529 ML Specimen received for Influenza A/B Molecular testing * ML - Main Lab . END OF REPORT DEPARTMENT OF PATHOLOGY, [address] [place] [address] Juan Deleon M.D. Director [facility] # [id number] 14 Teacher Drama: [id number] 15 Therapeutic concentration: <50 ug/mL Toxic concentration: >120 ug/mL 16 SEE RESULT BELOW Name: KATY SINGLETARY : [address]: Philly Miller MD Acct: [id number] Unit: [id number] AGE: 53 Location: [place] [address] Re06/07/18 SEX: M Status: ADM IN SPEC: [id number] ANGELES: 06/07/181446 [facility] DR: Ellis Elise MD REQ: [id number] RECD: 06/07/18 STATUS: ROM OZUNA DR: Lety Santamaria RPA-C _ SOURCE: BLOOD,VENO SPDESC: ORDERED: Blood Cult, Pediatric Bottl Procedure Result Reported Site Pediatric Blood Culture Final 06/12/181510 ML No Growth Day 5 * ML - Main Lab . END OF REPORT DEPARTMENT OF PATHOLOGY, [address] [place] [address] Juan Deleon M.D. Director [facility] # [id number] 17 SEE RESULT BELOW Name: YEISONKATY : [address]: Jamal Mcghee MD Acct: [id number] Unit: [id number] AGE: 53 Location: [place] [address] Re06/07/18 SEX: M Status: ADM IN SPEC: [id number] ANGELES: 06/07/[address]: Ellis Elise MD REQ: [id number] RECD: 06/07/18 STATUS: ROM OZUNA DR: Lety JARVIS _ SOURCE: URINE SPDESC: ORDERED: Urine Culture Procedure Result Reported Site Urine Culture Final 06/09/18- 09 ML No growth of clinically significant organisms * ML - Main Lab . END OF REPORT DEPARTMENT OF PATHOLOGY, [address] [place] [address] Juan Deleon M.D. Director [facility] # [id number] 18 SEE RESULT BELOW Name: KATY SINGLETARY Donnell : [address]: Philly Miller MD Acct: [id number] Unit: [id number] AGE: 53 Location: [place] [address] Re06/07/18 SEX: M Status: ADM IN SPEC: [id number] ANGELES: 06/07/18-[address]: Ellis Elise MD REQ: [id number] RECD: 06/07/18150 STATUS: ROM OZUNA DR: Lety Santamaria RPA-C _ SOURCE: BLOOD,VENO SPDES: ORDERED: Blood Cult Procedure Result Reported Site Aerobic Culture Bottle Final 06/12/18- 1506 ML No Growth Day 5 Anaerobic Culture Bottle Final 06/12/18- 1506 ML No Growth Day 5 * ML - Main Lab . END OF REPORT DEPARTMENT OF PATHOLOGY, [address] [place] [address] Juan Deleon M.D. Director [facility] # [id number] 19 Result TnIDx:0.07 Called to [id number] at: 16:26:39 by:[id number] Read back by: [id number] Troponin-I testing on Plasma Separator Tubes (PST) [...] 5 Kidney failure <15 (or dialysis) 21 [facility] Severe Sepsis and Septic Shock [...] KATY SINGLETARY: [address]: Amparo Landis [employer] SUPERVISOR Acct: [id number] Unit: [id number] AGE: 53 Location: WOUND Re03/29/18 SEX: M Status: REG REF SPEC: [id number] ANGELES: 03/29/181413 [facility] DR: Amparo Landis [employer]RICATION SUPERVISOR REQ: [id number] RECD: 03/29/18 STATUS: ROM OZUNA DR: [facility] _ SOURCE: TISSUE SPDESC:RIGHT ORDERED: Tissue [...] CONTINUED ON NEXT PAGE DEPARTMENT OF PATHOLOGY, [address] [place] [address] Juan Deleon M.D. Director [facility] # [id number] Patient: KATY SINGLETARY [id number] (Continued) Specimen: [id number] Collected: 03/29/18-141 Received: 03/29/18-225 (Continued) Procedure Result Reported Site Tissue Culture [...] . END OF REPORT DEPARTMENT OF PATHOLOGY, [address] [place] [address] Juan Deleon M.D. Director [facility] # [id number] 25 SEE RESULT BELOW Name: KATY SINGLETARY : [address]: Lety JARVIS Acct: [id number] Unit: [id number] AGE: 52 Location: [facility] Re01/16/18 SEX: M Status: REG REF SPEC: [id number] ANGELES: 01/16/[address]: Lety JARVIS REQ: [id number] RECD: 01/16/18 STATUS: ROM OZUNA DR: Scott Boyd MD _ S[facility]: [facility]: ORDERED: Urine Culture Procedure Result Reported Site Urine Culture Final 01/17/18- 1525 ML Organism 1 STREP GROUP B [place] Count 1-10,000 (Few) CFU/ML Susceptibility testing of penicillins and other B-lactams approved by FDA for treatment of Streptococcus pyogenes (Group A Strep) and Streptococcus agalactiae (Group B Strep) is not necessary for clinical purposes and need not be done routinely, since as with vancomycin, resistant strains have not been recognized. (CLSI V331-X74;p.66) Positive isolates will be saved for one week. Please call the Microbiology Laboratory if further susceptibility testing is needed. * ML - Main Lab . END OF REPORT DEPARTMENT OF PATHOLOGY, [address] [place] [address] Juan Deleon M.D. Director [facility] # [id number] 26 Because ethnic data is not always [...] in selective patients <6.0%. Please refer to [place] [employer] diabetic care guidelines for further [...] (or dialysis) 30 Result TnIDx:0.04 Called to [id number] at: 17:43:09 by:[id number] Read back by: [id number] 31 [facility] Severe Sepsis and Septic Shock Management Bundle Measure requires all lactic acids initially measuring >2.0 mmol/L be repeated. 32 BLOOD WORK 33 SEE RESULTS BELOW [id number] AP PC TRANSFUSED 05/21/172000 34 [facility] Severe Sepsis and Septic Shock Management Bundle Measure requires all lactic acids initially measuring >2.0 mmol/L be repeated. 35 SEE RESULT BELOW Name: KATY SINGLETARY : [address]: Garry Javed MD Acct: [id number] Unit: [id number] AGE: 52 Location: [facility] Re05/01/17 SEX: M Status: DEP REF SPEC: [id number] ANGELES: 05/01/17- SUBM DR: Garry Javed MD REQ: [id number] RECD: 05/01/17 STATUS: CINTIA OZUNA DR: Lety [...] performed at Main Lab DEPARTMENT OF PATHOLOGY, [address] [place] [address] Juan Deleon M.D. Director [facility] # [id number] RUN DATE: 05/04/17 [facility] LAB LIVE PAGE 2 Patient: KATY SINGLETARY [id number] (Continued) CLINICAL HISTORY (Continued) CLINICAL HISTORY Anemia, [...] performed at Main Lab DEPARTMENT OF PATHOLOGY, [address] [place] [address] Juan Deleon M.D. Director [facility] # [id number] 36 SEE RESULT BELOW Name: KATY SINGLETARY : [address]: Garry Javed MD Acct: [id number] Unit: [id number] AGE: 52 Location: ENDO Re05/01/17 SEX: M Status: DEP REF SPEC: [id number] ANGELES: 05/01/17-1229 [facility] DR: Garry Javed MD REQ: [id number] RECD: 05/03/171312 STATUS: ROM OZUNA DR: Lety JARVIS _ SOURCE: GAS ANTRUM SPDESC: ORDERED: Clotest Procedure Result Reported Site Clotest Final 05/04/17- 930 ML Clotest Negative * ML - MAIN LAB ([facility]) . END OF REPORT * ML=Testing performed at Main Lab DEPARTMENT OF PATHOLOGY, [address] [place] [address] Juan Deleon M.D. Director [facility] # [id number] 37 SEE RESULT BELOW Name: KATY SINGLETARY : [address]: Fermín Oscar MD Acct: [id number] Unit: [id number] AGE: 52 Location: ED Re02/17/17 SEX: M Status: REG ER SPEC: [id number] ANGELES: 02/17/[address]: Fermín Oscar MD REQ: [id number] RECD: 02/17/17 STATUS: RES [facility] DR: Lety Santamaria [facility] _ SOURCE: FOOT,LEFT SPDESC: ORDERED: Culture Stain Procedure Result Reported Site Wound/Misc Gram Stain Final 02/17/17- 190 ML 1+ Epithelial Cells 1+ Neutrophils 4+ Gram Positive Cocci in Clusters, resembling Staph 3+ Gram Negative Bacilli Wound/Misc Culture PENDING * ML - MAIN LAB ([facility]) . END OF REPORT * ML=Testing performed at Main Lab DEPARTMENT OF PATHOLOGY, [address] [place] [address] Juan Deleon M.D. Director [facility] # [id number] 38 SEE RESULT BELOW Name: KATY SINGLETARY Donnell : [address]: Philly Miller MD Acct: [id number] Unit: [id number] AGE: 52 Location: [place] [address]- Re02/17/17 SEX: M Status: ADM IN SPEC: [id number] ANGELES: 02/17/17 [facility] DR: Fermín Oscar MD REQ: [id number] RECD: 02/17/17 STATUS: ROM OZUNA DR: Lety Santamaria [facility] _ SOURCE: FOOT,LEFT SPDESC: ORDERED: MRSA/SA [...] performed at Main Lab DEPARTMENT OF PATHOLOGY, [address] [place] [address] Juan Deleon M.D. Director [facility] # [id number] Patient: KATY SINGLETARY [id number] (Continued) Specimen: [id number] Collected: 02/17/17 Received: 02/17/17 (Continued) Procedure Result Reported Site Wound/Misc Culture Final (continued) 02/20/171026 1. ENTEROCOCCUS FAECALIS (continued) M.I.C. RX --------- ------ * Streptomycin High Level S Tetracycline >=16 R Tigecycline <=0.12 S Vancomycin 1 S Imipenem-Deduced S * Ampicillin/Sulbactam-Deduced S * These antibiotics are not available in the [facility] Formulary Contact the Microbiology Department for any additional antibiotic reporting. * ML - MAIN LAB ([facility]) . END OF REPORT * ML=Testing performed at Main Lab DEPARTMENT OF PATHOLOGY, [address] [place] [address] Juan Deleon M.D. Director [facility] # [id number] [facility] Severe Sepsis and Septic Shock Management Bundle Measure requires all lactic acids initially measuring >2.0 mmol/L be repeated. 40 SEE RESULT BELOW Name: KATY SINGLETARY : [address]: Philly Miller MD Acct: [id number] Unit: [id number] AGE: 52 Location: [place] [address]- Re02/17/17 SEX: M Status: ADM IN SPEC: [id number] ANGELES: 02/17/17 [facility] DR: Fermín Oscar MD REQ: [id number] RECD: 02/17/17 STATUS: RES SULMA DR: Lety Santamaria [facility] _ SOURCE: BLOOD,VENO SPDESC: ORDERED: Blood Cult Procedure Result Reported Site Aerobic Culture Bottle Preliminary 02/18/17- 1809 ML No Growth Day 1 Anaerobic Culture Bottle Preliminary 02/18/17- 1807 ML No Growth Day 1 * ML - MAIN LAB ([facility]) . END OF REPORT * ML=Testing performed at Main Lab DEPARTMENT OF PATHOLOGY, [address] [place] [address] Juan Deleon M.D. Director [facility] # [id number] 41 Acute inflammation: >10.00 42 Because ethnic [...] dialysis) Procedures Date Code Description Status 01/16/2018 52754 Brief Emotional/Behav Assessment W/ Scoring Doc Per Completed Standard Inst 01/02/2018 350097263 Diabetic Retinal Eye Exam Completed 05/01/2017 [id number] Colonoscopy Completed 03/12/2017 [id number] Diabetic Foot Exam Completed Encounters Type Date [...]
--- NOTE | 2018-08-07 12:39 | ED ---
Lower Extremity - HPI Summary HPI Summary: Pt is 53 y/o male with hx of end stage renal disease, type II diabetes mellitus , and chronic osteomyelitis of the right foot presenting for cast removal. Patient has chronic non-healing wound on plantar aspect of right foot for which he sees wound care and Dr. Mcwilliams weekly. The cast is removed and replaced weekly. They typically go to wound care clinic for cast removal but wcc is closed today, prompting them to come here prior to his appt with Dr. Mcwilliams later today. Denies fever, chest pain, cough, abd pain, worsening extremity pain. He has no other complaints at this time. - History of Current Complaint Chief Complaint: EDExtremityLower Stated Complaint: CAST REMOVAL PER PT Time Seen by Provider: 08/07/18 12:03 Hx Obtained From: Patient, Family/Wood Fence Erector Severity Currently: Mild Pain Intensity: 0 Location: Other - plantar aspect of right foot Associated Signs And Symptoms: Negative: Fever, Dizziness, Abdominal Pain Able to Bear Weight: Yes - Allergies/Home Medications Allergies/Adverse Reactions: Allergies Allergy/AdvReac Type Severity Reaction Status Date / Time No Known Allergies Allergy Verified 08/07/18 12:02 PMH/Surg Hx/FS Hx/Imm Hx Previously Healthy: No - ESRD Endocrine/Hematology History: Reports: Hx Diabetes, Hx Anemia - WAS TRANSUSED LAST HOSP Denies: Hx Anticoagulant Therapy, Hx Thyroid Disease Cardiovascular History: Reports: Hx Angina - "tightness", "like congestion", Hx Hypercholesterolemia, Hx Hypertension, Hx Peripheral Vascular Disease, Other Cardiovascular Problems/Disorders - HIGH CHOLESTEROL Denies: Hx Congestive Heart Failure, Hx Coronary Artery Disease, Hx Deep Vein Thrombosis, Hx Myocardial Infarction, Hx Pacemaker/ICD, Hx Valvular Heart Disease Respiratory History: Reports: Hx Asthma - WAS IN HOSP FEB 2017, Hx Seasonal Allergies Denies: Hx Chronic Obstructive Pulmonary Disease (COPD), Hx Lung Cancer GI History: Denies: Hx Gall Bladder Disease, Hx Gastrointestinal Bleed, Hx Ulcer, Hx Urosepsis History: Reports: Hx Dialysis, Hx Renal Disease Denies: Hx Kidney Stones, Other Problems/Disorders - end stage renal disease Musculoskeletal History: Reports: Hx Arthritis - HANDS, Hx Gout, Other Musculoskeletal History - right toes amputated Denies: Hx Osteoporosis Sensory History: Reports: Hx Vision Problem Denies: Hx Cataracts, Hx Contacts or Glasses, Hx Glaucoma, Hx Hearing Aid Opthamlomology History: Reports: Hx Vision Problem Denies: Hx Cataracts, Hx Contacts or Glasses, Hx Glaucoma Neurological History: Denies: Hx CVA, Hx Dementia, Hx Migraine, Hx Seizures, Hx Transient Ischemic Attacks (TIA) Psychiatric History: Reports: Hx Depression - DUE TO WIFES Denies: Hx Anxiety, Hx Attention Deficit Hyperactivity Disorder, Hx Eating Disorder, Hx Panic Disorder, Hx Post Traumatic Stress Disorder, Hx Inpatient Treatment, Hx Community Mental Health Tx, Hx Schizophrenia, Hx Bipolar Disorder , Hx Suicide Attempt, Hx of Violent Episodes Against Others, Hx Substance Abuse , Other Psychiatric Issues/Disorders - Surgical History Surgery Procedure, Year, and Place: left second toe amputation 2009. Left ankle ORIF. RIGHT GREAT TOE AMPUTATION 2012, ALL OTHER TOES AMPUTATED 12/2014. HERNIA A CHILD. dialysis catheter. Hx Anesthesia Reactions: No - Immunization History Hx Pertussis Vaccination: No Immunizations Up to Date: Yes Infectious Disease History: No Infectious Disease History: Reports: Hx Shingles - HAD 8 YEAS AGO Denies: Hx Clostridium Difficile, Hx Hepatitis, Hx Human Immunodeficiency Virus (HIV), Hx of Known/Suspected MRSA, Hx Tuberculosis, History Other Infectious Disease, Traveled Outside the [place] in Last 30 Days - Family History Known Family History: Positive: Hypertension, Diabetes - Social History Occupation: Disabled Lives: With Family Alcohol Use: None Hx Substance Use: No Substance Use Type: Reports: None Hx Tobacco Use: No Smoking Status (MU): Never Smoked Tobacco Have You Smoked in the Last Year: No Review of Systems Negative: Fever, Chills Negative: Chest Pain Negative: Cough Negative: Abdominal Pain Positive: Other - cast on right foot/lower leg. Negative: Arthralgia, Myalgia, Decreased ROM All Other Systems Reviewed And Are Negative: Yes Physical Exam Triage Information Reviewed: Yes Vital Signs On Initial Exam: Initial Vitals Temp Pulse Resp BP Pulse Ox 98 F 58 16 171/97 96 08/07/18 11:59 08/07/18 11:59 08/07/18 11:59 08/07/18 11:59 08/07/18 11:59 Vital Signs Reviewed: Yes Appearance: Positive: Well-Appearing, No Pain Distress Skin: Positive: Warm, Dry Head/Face: Positive: Normal Head/Face Inspection Eyes: Positive: Normal ENT: Positive: Normal ENT inspection Respiratory/Lung Sounds: Positive: Clear to Auscultation Cardiovascular: Positive: Normal Abdomen Description: Negative: Distended Neurological: Positive: Normal Psychiatric: Positive: Normal Procedures - Procedure Summary Procedure Summary: Cast removal of right foot/lower leg. Pre-exam, NV intact. Patient tolerated well. Post-exam, NV intact. Diagnostics - Vital Signs Vital Signs Temp Pulse Resp BP Pulse Ox 08/07/18 11:59 98 F 58 16 171/97 96 - Laboratory Lab Statement: Any lab studies that have been ordered have been reviewed, and results considered in the medical decision making process. Lower Extremity Course/Dx - Course Course Of Treatment: pt is 53 y/o male with right foot cast for chronic non- healing wound secondary to type II DM and chronic osteomyelitis. Cast is removed and replaced weekly for infectious disease evaluation and wound care. Cast removed, patient tolerated well. Will f/u with Dr. Mcwilliams later today as scheduled. - Diagnoses Differential Diagnosis/HQI/PQRI: Positive: Infection, Osteomyelitis Provider Diagnoses: Encounter for cast removal Discharge - Sign-Out/Discharge Documenting (check all that apply): Patient Departure Patient Received Moderate/Deep Sedation with Procedure: No - Discharge Plan Condition: Improved Disposition: HOME Referrals: Lety Vasquez [Primary Care Provider] - - Billing Disposition and Condition Condition: IMPROVED Disposition: Home - Attestation Statements Document Initiated by Scribe: Yes Documenting Scribe: ASTER Sultana Provider For Whom Scribe is Documenting (Include Credential): richardson Saleemibjason Attestation: Sky Reilly PA-S, elmered renny bai on 08/07/18 at 1415. Scribe Documentation Reviewed: Yes Provider Attestation: The documentation as recorded by the scribSky gomez PA-S accurately reflects the service I personally performed and the decisions made by richardson banegas Status of Scribe Document: Viewed
[2018-08-07 13:14] VITALS: BP 164/82
== END 2018-08-07 13:12 | disposition home or self-care (01) ==
LOC: ED 11:57
DX: Z48.00 Encounter for change or removal of nonsurgical wound dressing (principal); I12.0 Hypertensive chronic kidney disease with stage 5 chronic kidney disease or end stage renal disease; E11.22 Type 2 diabetes mellitus with diabetic chronic kidney disease; N18.6 End stage renal disease; J44.9 Chronic obstructive pulmonary disease, unspecified; I73.9 Peripheral vascular disease, unspecified; E78.00 Pure hypercholesterolemia, unspecified; M10.9 Gout, unspecified; M86.9 Osteomyelitis, unspecified; F32.9 Major depressive disorder, single episode, unspecified; Z85.118 Personal history of other malignant neoplasm of bronchus and lung; Z89.422 Acquired absence of other left toe(s); Z89.411 Acquired absence of right great toe; Z89.421 Acquired absence of other right toe(s)
CPT/HCPCS: 99281

== ENCOUNTER 2019-06-30 20:37 | Emergency (ER) | payer SELFPAY ==
[2019-06-30] MEDS ORDERED: Ondansetron INJ* 2 MG/ML VIAL IV ONE (21:38)
--- OUTSIDE RECORDS SUMMARY | 2019-06-30 21:41 | XMS REPORT | Continuity of Care Document ---
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 Onset: 02/03/2015 and/or foot Mitral valve disorder William Chavez M.D., [facility], Onset: 03/30/2017 [facility] Essential hypertension William Chavez M.D., [facility], Onset: 03/30/2017 [facility] Aortic valve disorder William Chavez M.D., [facility], Onset: 07/17/2018 [facility] Chronic renal failure Garry Javed MD Onset: 01/19/2017 Note: ESRD 01/19/17 - and continuous dialysis ever since; from diabetes - had had Dr Glasgow first Cr over 2 was 2.08 Feb 2013 Diarrhea Garry Javed MD Onset: 03/17/2018 Social History Type Date Description Comments Sex Unknown ETOH Use Occasionally consumes alcohol Tobacco Use Start: Unknown Patient has never smoked Recreational Drug Use Denies Drug Use Smoking Status Reviewed: 08/23/18 Patient has never smoked Exercise Type/Frequency Does not exercise Allergies, Adverse Reactions, Alerts Active Allergies Reaction Severity Comments Date NKDA 02/04/2013 Grass 03/30/2017 Medications Active Medications SIG Qnty Indications Ordering Provider Date Torsemide take 1 tablet 90tabs Zabrina Marino MD 03/07/2019 100mg Tablets daily Lomotil one tablet in Am 60tabs Alessandra Quintanilla 07/24/2018 2.5-0.025mg and again if Dietrich, [employer]ONATOR [employer] Tablets needed Simvastatin take 1 tablet by Unknown 10mg Tablets mouth at bedtime (on hold per pt) Acetaminophen 2 tabs 3x a day Unknown 325mg as needed Tablets Omeprazole Take 1 Capsule Unknown 20mg Capsules By Mouth Once DR Daily (on hold per pt) Renvela twice daily (on Unknown 800mg Tablets hold per pt) Afua-Dennis 1 tab daily (on Unknown Tablets hold per pt) Fluticasone Propionate 2 puffs each Unknown nare every in 50mcg/Act Suspension the morning Metoprolol Tartrate 1 by mouth twice Unknown 50mg a day Tablets Sertraline HCL 3 tabs by mouth Unknown 100mg every day (on Tablets hold) Ferric Citrate 420 MG 1 po tid with Unknown meals (on hold per pt) Vitamin B Complex 1 by mouth every Unknown day (on hold per Tablets pt) Pantoprazole Sodium 1 by mouth twice 30tabs Alessandra Quintanilla 40mg a day (on hold) Dietrich, DETONATOR MAKER Tablets DR Cinacalcet HCL 2-3 times daily Unknown 60mg Tablets Auryxia once daily Unknown 1GM 210 mg(Fe) Tablets Aspirin 1 by mouth every Unknown 81mg Tablets DR day (on hold) Immunizations Description No Information Available Vital Signs Date Vital Result Comment 08/23/2018 11:54am Height 71 inches 5'11" Weight 248.00 lb Heart Rate 72 /min BP Systolic Sitting 168 mmHg BP Diastolic Sitting 98 mmHg Respiratory Rate 14 /min Body Temperature 98.0 F BMI (Body Mass Index) 34.6 kg/m2 08/20/2018 2:58pm Height 71 inches 5'11" Weight 250.00 lb with shoes Heart Rate 72 /min BP Systolic Sitting 160 mmHg Rue reg cuff BP Diastolic Sitting 82 mmHg Rue reg cuff BP Systolic Standing 162 mmHg Rue reg cuff BP Diastolic Standing 84 mmHg Rue reg cuff Respiratory Rate 17 /min BMI (Body Mass Index) 34.9 kg/m2 Ejection Fraction 40-45% date 07/01/18 ECHO Results Test Acquired Date Facility Test Result H/L Range Note # Days/WK 12/24/2018 N2N/CCD Import # Days/WK 3 2 - 3 Treated Treated VT (KT/V TX Vol) 12/24/2018 N2N/CCD Import VT (KT/V TX 52.8 Vol) VM (KT/V Mean 12/24/2018 N2N/CCD Import VM (KT/V Mean 50.2 Vol) Vol) KT/V Prescribed 12/24/2018 N2N/CCD Import KT/V Prescribed 1.62 SPKT/V Total 12/24/2018 N2N/CCD Import SPKT/V Total 1.29 NPCR HD Ukm 12/24/2018 N2N/CCD Import NPCR HD Ukm 0.82 Gender 12/24/2018 N2N/CCD Import Gender M Race 12/24/2018 N2N/CCD Import Race C Amputation 12/24/2018 N2N/CCD Import Amputation 0.000 Factor Factor TBW ([place]) 12/24/2018 N2N/CCD Import TBW ([place]) 54.87 STDKRT/V Renal 12/24/2018 N2N/CCD Import STDKRT/V Renal N/A STDKT/V Total 12/24/2018 N2N/CCD Import STDKT/V Total N/A HRS/Week Treated 12/24/2018 N2N/CCD Import HRS/Week 10.0 Treated Blood Flow-QWB 12/24/2018 N2N/CCD Import Blood Flow-QWB 500 Hemoglobin 12/24/2018 N2N/CCD Import Hemoglobin 9.7 Low 14.0 - 18.0 HCT Calc (HGBX3) 12/24/2018 N2N/CCD Import HCT Calc 29.1 Low 42.0 - (HGBX3) 52.0 PTH Intact 12/24/2018 N2N/CCD Import PTH Intact 1067 High 18 - 80 CA/Phos 12/24/2018 N2N/CCD Import Calcium 9.0 8.7 - 10.4 W/Products Phosphorus 7.7 High 2.4 - 5.1 C[place]os Product 69.3 High 21 - 53 [place] Corrected 70.1 High 21 - 53 KT/V By Ukm Panel 12/24/2018 N2N/CCD Import Urr 69 65 - 100 BUN 55 High 9 - 23 BUN - Post 17 9 - 23 Dialyzer Series 12/24/2018 N2N/CCD Import Dialyzer Series Revaclr Dialyzer Model 12/24/2018 N2N/CCD Import Dialyzer Model 400 Dialyzer Make(MFG) 12/24/2018 N2N/CCD Import Dialyzer Make(MFG) [place] Dialyzer Flow-qd 12/24/2018 N2N/CCD Import Dialyzer Flow-qd 600 Dialyzer Jin 12/24/2018 N2N/CCD Import Dialyzer Jin 1474 Minutes Dialyzed 12/24/2018 N2N/CCD Import Minutes Dialyzed 212 Calcium Corrected 12/24/2018 N2N/CCD Import Calcium Corrected 9.1 8.7 - 10.4 SPKDT/V Dialysis 12/24/2018 N2N/CCD Import SPKDT/V Dialysis 1.29 Ekdt/V Dialysis 12/24/2018 N2N/CCD Import Ekdt/V Dialysis 1.10 STDKDT/V Dialysis 12/24/2018 N2N/CCD Import STDKDT/V Dialysis N/A Age Of Patient 12/24/2018 N2N/CCD Import Age Of Patient 53 Bsa ([place]) 12/24/2018 N2N/CCD Import Bsa ([place]) 2.31 Weight-Post (KG) 12/24/2018 N2N/CCD Import Weight-Post (KG) 114.0 Weight-Pre (KG) 12/24/2018 N2N/CCD Import Weight-Pre (KG) 115.1 Height (Inches) 12/24/2018 N2N/CCD Import Height (Inches) 71 Weight (KG) 12/24/2018 N2N/CCD Import Weight (KG) 114.0 Phosphorus 12/18/2018 N2N/CCD Import Phosphorus 6.3 High 2.4 - 5.1 Hemoglobin 12/18/2018 N2N/CCD Import Hemoglobin 12.1 Low 14.0 - 18.0 HCT Calc (HGBX3) 12/18/2018 N2N/CCD Import HCT Calc (HGBX3) 36.3 Low 42.0 - 52.0 Procedures Date Code Description Status 06/10/2019 40123 [facility] 20Yrs 4/More Qinx-Cf-Mtja Visits Per Month Completed 05/10/2019 60997 [facility] 20Yrs 4/More Gvzd-Et-Ygmm Visits Per Month Completed 04/11/2019 67354 [facility] 20Yrs 4/More Host-Yb-Gnlz Visits Per Month Completed 03/11/2019 27674 [facility] 20Yrs 4/More Ilas-Ul-Luyc Visits Per Month Completed Medical Devices Description No Information Available Encounters Description No Information Available Assessments Date Code Description Provider 06/10/2019 N18.6 End stage renal disease Smith Sheldon MD 05/10/2019 N18.6 End stage renal disease Smith Sheldon MD 04/11/2019 N18.6 End stage renal disease Smith Sheldon MD 03/11/2019 N18.6 End stage renal disease Smith Sheldon MD Plan of Treatment 08/23/2018 - Ector Ramos M.D.[id number] Encounter for other preprocedural examinationComments:Low risk procedure, he has no signs or symptoms of an active infection, he is at average risk of postoperative infection for someone with diabetes and ESRD. He should have usual pre operative antibiotics given by his hand plate stacker for this procedure.E11.22 Type 2 diabetes mellitus w diabetic chronic kidney uxllqciP22.6 End stage renal disease Functional Status Description No Information Available Mental Status Description No Information Available Referrals Description No Information Available
--- NOTE | 2019-06-30 22:07 | ED ---
GI/ HPI - HPI Summary HPI Summary: Patient is a 54 y/o M who is currently on dialysis and has Hx of HTN and diabetes presents to [facility] via EMS for N/V/D and generalized weakness. Patient states that he was scheduled for dialysis earlier today but he had to miss this treatment due to diarrhea. Patient states that he subsequently went home, felt fatigued and took a nap. When the patient woke up, he states that he had difficulty getting out of his recliner due to BLE weakness. Patient also notes that he had BUE weakness. Slurred speech, numbness, tingling are denied. Upon arrival to the ED, patient had an episode of emesis. Patient states that he is no longer nauseous. He denies Hx of cardiac disease. NKDA reported. He is a non- smoker and denies alcohol and substance usage. Patient states that he has had all of his toes surgically removed. FMHx of cancer reported. Patient states that he was informed by dialysis personnel that it is uncertain if the patient will be able to receive dialysis tomorrow due to schedule. Home medications and allergies are reviewed. - History of Current Complaint Chief Complaint: EDNauseaVomitDiarrh Time Seen by Provider: 06/30/19 21:37 Stated Complaint: WEAKNESS/GENERAL ILLNESS PER EMS Hx Obtained From: Patient Onset/Duration: Resolved Timing: Intermittent Current Severity: None Pain Intensity: 0 Associated Signs and Symptoms: Positive: Weakness - generalized, Nausea, Vomiting, Diarrhea, Other: - negative - tingling, numbness, slurred speech - Additional Pertinent History Primary Care Physician: [place] - Allergy/Home Medications Allergies/Adverse Reactions: Allergies Allergy/AdvReac Type Severity Reaction Status Date / Time No Known Allergies Allergy Verified 08/07/18 12:02 Home Medications: Home Medications Simvastatin TAB(NF) [Zocor 10 MG (NF)] 10 mg PO QPM 05/07/17 [History Confirmed 07/10/18] Omeprazole CAP (NF) [Prilosec CAP* 20 MG] 20 mg PO BID rafi. 05/15/17 [Rx Confirmed 07/10/18] Cinacalcet TAB* [Sensipar TAB*] 120 mg PO DAILY 06/07/18 [History Confirmed 03/30] Ferric Citrate TAB(NF) 420 mg PO TID WITH MEALS 06/07/18 [History Confirmed 03/30] Fluticasone NASAL SPRAY 50MCG* [Flonase NASAL SPRAY 50MCG*] 2 spray BOTH NARES DAILY 06/07/18 [History Confirmed 07/10/18] Lisinopril TAB* [Prinivil TAB 10 MG*] 10 mg PO BEDTIME 06/07/18 [History Confirmed 07/10/18] Sertraline* [Zoloft*] 150 mg PO DAILY 06/07/18 [History Confirmed 07/10/18] Lactobacillus Acidophilus* 2 tab PO DAILY 10 Days #20 tab 06/17/18 [Rx Confirmed 07/01/18] oxyCODONE TAB* [Roxycodone TAB 5 mg*] 5 mg PO Q6H PRN #12 tab MDD 4 06/17/18 [ Rx Confirmed 07/10/18] Vitamin B Complex CAP* [B Complex CAP*] 1 cap PO DAILY 06/21/18 [History Confirmed 07/10/18] Loperamide CAP* [Imodium CAP*] 2 mg PO .SEE DIRECTIONS PRN #30 cap 07/05/18 [Rx] Folic Acid/Vit B Complex and C [Afau-Dennis] 1 tab PO DAILY 07/08/18 [History Confirmed 07/10/18] Metoprolol Tartrate TAB* [Lopressor TAB*] 50 mg PO BID 07/08/18 [History Confirmed 07/10/18] Pantoprazole TAB * [Protonix TAB*] 40 mg PO BID 07/08/18 [History Confirmed 03/30] RiFAXimin* [Xifaxan*] 550 mg PO BID 07/08/18 [History Confirmed 07/10/18] Sevelamer TAB* [Renvela TAB*] 800 mg PO BID 07/08/18 [History Confirmed 07/10/18 ] Acetaminophen TAB* [Tylenol TAB*] 650 mg PO TID PRN 07/10/18 [History Confirmed 07/10/18] Aspirin 81 mg CHEW TAB* [Aspirin Low Dose TAB*] 81 mg PO DAILY 07/10/18 [ History Confirmed 07/10/18] PMH/Surg Hx/FS Hx/Imm Hx Endocrine/Hematology History: Reports: Hx Diabetes, Hx Anemia - WAS TRANSUSED LAST HOSP Denies: Hx Anticoagulant Therapy, Hx Thyroid Disease Cardiovascular History: Reports: Hx Angina - "tightness", "like congestion", Hx Hypercholesterolemia, Hx Hypertension, Hx Peripheral Vascular Disease, Other Cardiovascular Problems/Disorders - HIGH CHOLESTEROL Denies: Hx Congestive Heart Failure, Hx Coronary Artery Disease, Hx Deep Vein Thrombosis, Hx Myocardial Infarction, Hx Pacemaker/ICD, Hx Valvular Heart Disease Respiratory History: Reports: Hx Asthma - WAS IN HOSP FEB 2017, Hx Seasonal Allergies Denies: Hx Chronic Obstructive Pulmonary Disease (COPD), Hx Lung Cancer GI History: Denies: Hx Gall Bladder Disease, Hx Gastrointestinal Bleed, Hx Ulcer, Hx Urosepsis History: Reports: Hx Dialysis, Hx Renal Disease Denies: Hx Kidney Stones, Other Problems/Disorders - end stage renal disease Musculoskeletal History: Reports: Hx Arthritis - HANDS, Hx Gout, Other Musculoskeletal History - right toes amputated Denies: Hx Osteoporosis Sensory History: Reports: Hx Vision Problem Denies: Hx Cataracts, Hx Contacts or Glasses, Hx Glaucoma, Hx Hearing Aid Opthamlomology History: Reports: Hx Vision Problem Denies: Hx Cataracts, Hx Contacts or Glasses, Hx Glaucoma Neurological History: Denies: Hx CVA, Hx Dementia, Hx Migraine, Hx Seizures, Hx Transient Ischemic Attacks (TIA) Psychiatric History: Reports: Hx Depression - DUE TO WIFES Denies: Hx Anxiety, Hx Attention Deficit Hyperactivity Disorder, Hx Eating Disorder, Hx Panic Disorder, Hx Post Traumatic Stress Disorder, Hx Inpatient Treatment, Hx Community Mental Health Tx, Hx Schizophrenia, Hx Bipolar Disorder , Hx Suicide Attempt, Hx of Violent Episodes Against Others, Hx Substance Abuse , Other Psychiatric Issues/Disorders - Surgical History Surgery Procedure, Year, and Place: left second toe amputation 2009. Left ankle ORIF. RIGHT GREAT TOE AMPUTATION 2012, ALL OTHER TOES AMPUTATED 12/2014. HERNIA A CHILD. dialysis catheter. Hx Anesthesia Reactions: No Infectious Disease History: No Infectious Disease History: Reports: Hx Shingles - HAD 8 YEAS AGO Denies: Hx Clostridium Difficile, Hx Hepatitis, Hx Human Immunodeficiency Virus (HIV), Hx of Known/Suspected MRSA, Hx Tuberculosis, History Other Infectious Disease, Traveled Outside the [place] in Last 30 Days - Family History Known Family History: Positive: Hypertension, Diabetes - Social History Alcohol Use: None Hx Substance Use: No Substance Use Type: Reports: None Hx Tobacco Use: No Smoking Status (MU): Never Smoked Tobacco Have You Smoked in the Last Year: No Review of Systems - ROS Summary Review of Systems Summary: Home Medications Medication Instructions Recorded Confirmed Type Simvastatin TAB(NF) [Zocor 10 MG 10 mg PO QPM 05/07/17 07/10/18 History (NF)] Omeprazole CAP (NF) [Prilosec CAP* 20 mg PO BID cap. 05/15/17 07/10/18 Rx 20 MG] Cinacalcet TAB* [Sensipar TAB*] 120 mg PO DAILY 06/07/18 07/10/18 History Ferric Citrate TAB(NF) 420 mg PO TID WITH MEALS 06/07/18 07/10/18 History Fluticasone NASAL SPRAY 50MCG* 2 spray BOTH NARES DAILY 06/07/18 07/10/18 History [Flonase NASAL SPRAY 50MCG*] Lisinopril TAB* [Prinivil TAB 10 10 mg PO BEDTIME 06/07/18 07/10/18 History MG*] Sertraline* [Zoloft*] 150 mg PO DAILY 06/07/18 07/10/18 History Lactobacillus Acidophilus* 2 tab PO DAILY 10 Days #20 tab 06/17/18 07/01/18 Rx oxyCODONE TAB* [Roxycodone TAB 5 5 mg PO Q6H PRN #12 tab MDD 4 06/17/18 Rx mg*] Vitamin B Complex CAP* [B Complex 1 cap PO DAILY 06/21/18 07/10/18 History CAP*] Loperamide CAP* [Imodium CAP*] 2 mg PO .SEE DIRECTIONS PRN #30 cap 07/05/18 Rx Folic Acid/Vit B Complex and C 1 tab PO DAILY 07/08/18 07/10/18 History [Afua-Dennis] Metoprolol Tartrate TAB* 50 mg PO BID 07/08/18 07/10/18 History [Lopressor TAB*] Pantoprazole TAB * [Protonix TAB*] 40 mg PO BID 07/08/18 07/10/18 History RiFAXimin* [Xifaxan*] 550 mg PO BID 07/08/18 07/10/18 History Sevelamer TAB* [Renvela TAB*] 800 mg PO BID 07/08/18 07/10/18 History Acetaminophen TAB* [Tylenol TAB*] 650 mg PO TID PRN 07/10/18 07/10/18 History Aspirin 81 mg CHEW TAB* [Aspirin 81 mg PO DAILY 07/10/18 07/10/18 History Low Dose TAB*] Positive: Fatigue - generalized weakness Positive: Vomiting, Diarrhea, Nausea Positive: Weakness - generalized weakness . Negative: Paresthesia, Numbness, Slurred Speech All Other Systems Reviewed And Are Negative: Yes Physical Exam - Summary Physical Exam Summary: General: Well-developed, Well-nourished male. No acute distress. HEENT: Normocephalic, Atraumatic. Eyes: Conjuctiva normal, PERRL. Oropharynx: Clear, mucous membranes moist, (-) exudates. Neck: Soft, FROM, (-) lymphadenopathy, (-) thyromegaly, (-) JVD. Cardiovascular: Normal sinus rhythm, (-) murmur. Lungs: Clear to auscultation bilaterally (-) wheezes, (-) rales, (-) rhonchi. Abdomen: Soft, non-tender, non-distended, (-) organomegaly, normal bowel sounds. Back: (-) CVA tenderness Extremities: No edema. Skin: Warm, dry, (-) rash. Neuro: Alert and oriented x3, moves all extremities equally. No ataxia. No gait disturbance. No sensory deficit. Normal strength, normal sensation. Psychiatric: Mood normal, affect normal. Triage Information Reviewed: Yes Vital Signs On Initial Exam: Initial Vitals Pulse BP Pulse Ox 64 173/100 100 06/30/19 20:47 06/30/19 20:47 06/30/19 20:47 Vital Signs Reviewed: Yes Procedures - Sedation Patient Received Moderate/Deep Sedation with Procedure: No Diagnostics - Vital Signs Vital Signs 06/30/19 06/30/19 06/30/19 20:47 20:58 21:00 Temperature 97.6 F Pulse Rate 64 62 63 Respiratory 18 17 Rate Blood Pressure 173/100 173/100 (mmHg) O2 Sat by Pulse 100 99 99 Oximetry 06/30/19 06/30/19 06/30/19 21:17 21:47 22:00 Temperature Pulse Rate 62 61 63 Respiratory 19 21 19 Rate Blood Pressure 165/102 172/106 (mmHg) O2 Sat by Pulse 98 99 100 Oximetry - Laboratory Lab Results: Laboratory Results - last 24 hr 06/30/19 06/30/19 06/30/19 22:19 22:19 22:19 WBC 8.9 RBC 3.58 L Hgb 13.1 L Hct 39 L MCV 109 H MCH 36 H MCHC 34 RDW 15 Plt Count 203 MPV 9.4 Neut % (Auto) 70.2 Lymph % (Auto) 16.8 Hamilton % (Auto) 10.7 Eos % (Auto) 1.1 Baso % (Auto) 1.2 Absolute Neuts (auto) 6.3 Absolute Lymphs (auto) 1.5 Absolute Monos (auto) 1.0 H Absolute Eos (auto) 0.1 Absolute Basos (auto) 0.1 Absolute Nucleated RBC 0.0 Nucleated RBC % 0.0 INR (Anticoag Therapy) 1.55 H Sodium 132 L Potassium TNP Chloride 95 L Carbon Dioxide 17 L Anion Gap 20 H BUN 78 H Creatinine 9.19 H Est GFR ( Amer) 7.3 Est GFR (Non-Af Amer) 6.0 BUN/Creatinine Ratio 8.5 Glucose 88 Lactic Acid Calcium 8.7 Total Bilirubin 2.10 H AST TNP ALT 20 Alkaline Phosphatase 114 H Troponin I 0.06 H* C-Reactive Protein 15.49 H B-Natriuretic Peptide Total Protein 8.8 Albumin 4.5 Globulin 4.3 H Albumin/Globulin Ratio 1.0 Lipase 40 06/30/19 07/01/19 07/01/19 22:19 00:02 00:02 WBC RBC Hgb Hct MCV MCH MCHC RDW Plt Count MPV Neut % (Auto) Lymph % (Auto) Hamilton % (Auto) Eos % (Auto) Baso % (Auto) Absolute Neuts (auto) Absolute Lymphs (auto) Absolute Monos (auto) Absolute Eos (auto) Absolute Basos (auto) Absolute Nucleated RBC Nucleated RBC % INR (Anticoag Therapy) Sodium Potassium 7.3 H* Chloride Carbon Dioxide Anion Gap BUN Creatinine Est GFR ( Amer) Est GFR (Non-Af Amer) BUN/Creatinine Ratio Glucose Lactic Acid 2.3 H* Calcium Total Bilirubin AST 24 ALT Alkaline Phosphatase Troponin I C-Reactive Protein B-Natriuretic Peptide 2778 H Total Protein Albumin Globulin Albumin/Globulin Ratio Lipase Result Diagrams: 06/30/19 22:19 07/01/19 00:02 Lab Statement: Any lab studies that have been ordered have been reviewed, and results considered in the medical decision making process. - EKG 0048 Cardiac Rate: NL - junctional rhythm with rate of 64 BPM Summary of EKG Findings: EKG showed junctional rhythm with rate of 64 BPM, no STEMI. ED physician has reviewed and interpreted this EKG. Re-Evaluation - Re-Evaluation First Eval Re-Evaluation Time: 22:36 Comment: Patient observed ambulating to bathroom independently with use of cane. Second Eval Re-Evaluation Time: 01:11 Comment: Patient will require transfer for dialysis, patient is agreeable with transfer. Third Eval Re-Evaluation Time: 01:22 Comment: Report given to transfer center. Patient accepted for transfer to [facility] by Dr. Chacon. GIGU Course/Dx - Course Course Of Treatment: 54-year-old male presents by ambulance from home with generalized weakness. He states he was scheduled for dialysis today. However due to significant diarrhea he was unable to get dialysis. The dialysis nurse told him he they weren't sure if they could do his dialysis tomorrow because there are any full. She did recommend he go to the emergency room to get his potassium level checked. Patient has not had any antibiotics in the last 2 months. Has no current risk factors. Upon arrival he had one episode of vomiting in the ambulance. Otherwise has not had any fevers. No chest pain, cough, shortness of breath. Patient has no significant findings on physical exam. Workup demonstrates an elevated creatinine of 9.1. Troponin slightly elevated with a very elevated BNP as well. Potassium 7.3. Patient given IV calcium as well as insulin and glucose. Also given SPS. Discussed with the hospitalist. We have no capability of doing dialysis inpatient. Patient is accepted in transfer by [facility], Dr. Chacon for transfer and dialysis. patient is in agreement with plan. During ED course, patient received Zofran 4 mg IV, Insulin 5 units IV, Dextrose 25 gm IV, Calcium Gluconate 1 gm in 50 mls @ 50 mls/hr IV, and Sodium Polystyrene Sulfonate 30 gm PO. - Diagnoses Provider Diagnoses: Hyperkalemia, Chronic kidney failure - Physician Notifications Discussed Care Of Patient With: Adrián Rawls Time Discussed With Above Provider: 01:04 Instructed by Provider To: Other - 0104 - Patient's case was discussed with Dr. Rawls, patient will require transfer to higher level of care facility for dialysis. 0122 - Patient accepted for transfer to [facility] by Dr. Chacon. - Critical Care Time Critical Care Statement: Critical care time is provided exclusive of any time spent performing procedures. Discharge ED - Sign-Out/Discharge Documenting (check all that apply): Patient Departure - transfer - Discharge Plan Condition: Stable Disposition: TRANS HIGHER LVL OF CARE FAC Referrals: Lety Santamaria PA [Primary Care Provider] - - Billing Disposition and Condition Condition: STABLE Disposition: Trans Higher Lvl of Care Fac - Attestation Statements Document Initiated by Scribe: Yes Documenting Scribe: PANCHO VANCE Provider For Whom Scribe is Documenting (Include Credential): EDUARDO HERNANDEZ MD Scribe Attestation: I, PANCHO VANCE, scribed for EDUARDO HERNANDEZ MD on 07/01/19 at 0207. Scribe Documentation Reviewed: Yes Provider Attestation: The documentation as recorded by the scribePANCHO accurately reflects the service I personally performed and the decisions made by me, EDUARDO HERNANDEZ MD Status of Scribe Document: Viewed
[2019-06-30 22:40] LABS: INR 1.55 (0.82-1.09)
[2019-06-30 22:45] LABS: ABS Basophils 0.1 10^3/ul (0-0.2); ABS Eosinophils 0.1 10^3/ul (0-0.6); ABS Lymphocytes 1.5 10^3/ul (1.0-4.8); ABS Neutrophils 6.3 10^3/ul (1.5-7.7); Eosinophil % 1.1 %; Hematocrit 39 % (42-52); Hemoglobin 13.1 g/dL (14.0-18.0); Lymphocyte % 16.8 %; Mean Corpuscular HGB Conc 34 g/dL (31-36); Mean Corpuscular Hemoglobin 36 pg (27-31); Mean Corpuscular Volume 109 fL (80-94); Mean Platelet Volume 9.4 fL (7.4-10.4); Platelet Count 203 10^3/uL (150-450); Red Blood Count 3.58 10^6 /uL (4.18-5.48); Red Cell Distribution Width 15 % (10-15); White Blood Count 8.9 10^3/uL (3.5-10.8)
[2019-06-30 22:48] LABS: Albumin 4.5 g/dL (3.2-5.2); CO2 Carbon Dioxide 17 mmol/L (22-32); Calcium 8.7 mg/dL (8.6-10.3); Chloride 95 mmol/L (101-111); Sodium 132 mmol/L (135-145)
[2019-06-30 22:54] LABS: ALT 20 U/L (7-52); Alkaline Phosphatase 114 U/L (34-104); BUN/Creatinine Ratio 8.5 (8-20); Blood Urea Nitrogen 78 mg/dL (6-24); C Reactive Protein 15.49 mg/L (<8.01); EGFR African American 7.3 (>60); Globulin 4.3 g/dL (2-4); Glucose 88 mg/dL (70-100); Total Protein 8.8 g/dL (6.4-8.9)
[2019-06-30 23:02] LABS: Anion Gap 20 mmol/L (2-11)
[2019-07-01 00:41] LABS: Potassium Redraw 7.3 mmol/L (3.5-5.0)
[2019-07-01] MEDS ORDERED: CALCIUM GLUCONATE 1GM/50ML NS 1 GM/50 ML BAG IV ONE (01:45)
[2019-07-01] MEDS ORDERED: Dextrose 50% Syringe 50 ML* 25 GM/50 ML SYRINGE IV PUSH ONE (01:46)
[2019-07-01] MEDS ORDERED: Insulin REGULAR(*) 1 UNITS UNIT IV PUSH ONE (01:46)
[2019-07-01] MEDS ORDERED: Sodium Polystyrene ORAL.SUSP* 15 GM/60 ML BTL PO ONE (01:47)
[2019-07-01 02:01] LABS: Troponin I 0.06 ng/mL (<0.03)
[2019-07-01 03:18] VITALS: BP 169/109
== END 2019-07-01 03:17 | disposition short-term general hospital (02) ==
LOC: ED 20:37
DX: E87.5 Hyperkalemia (principal); I12.9 Hypertensive chronic kidney disease with stage 1 through stage 4 chronic kidney disease, or unspecified chronic kidney disease; R53.1 Weakness; E11.22 Type 2 diabetes mellitus with diabetic chronic kidney disease; N18.9 Chronic kidney disease, unspecified; I10 Essential (primary) hypertension; E11.9 Type 2 diabetes mellitus without complications; E78.00 Pure hypercholesterolemia, unspecified; R53.83 Other fatigue; Z79.82 Long term (current) use of aspirin; Z86.79 Personal history of other diseases of the circulatory system; Z79.899 Other long term (current) drug therapy; Z99.2 Dependence on renal dialysis
CPT/HCPCS: 36415; 80053; 83605; 83690; 83880; 84484; 85025; 85610; 86140; 87040; 93005; 96374; 96375; 99285; A9270-GY; J0610; J2405

== ENCOUNTER 2020-07-28 07:13 | Inpatient (IN) ==
[2020-07-28] MEDS ORDERED: Ondansetron 4 mg VIAL 2 MG/ML 2 ml VIAL IV PRN (08:24)
[2020-07-28] MEDS: Heparin 1,000 UNIT/ML 10 ml (10,000 UNITS) CATHLAB/DIALYSIS DIALYSIS ONE ×3 (11:05→13:11)
[2020-07-28 12:40] LABS: Hepatitis B Surface Antigen Nonreactive (Nonreactive)
[2020-07-28 12:57] LABS: Hepatitis B Surface Ab Immune (Immune)
[2020-07-28] MEDS: Heparin 5000 UNITS/ML 1 mL VIAL SUBCUT SCH ×2 (15:17→20:57)
[2020-07-28] MEDS ORDERED: Labetalol IV 5 MG/ML 20 ml VIAL IV PUSH PRN (15:45)
[2020-07-28] MEDS ORDERED: CMC: Simvastatin 10 mg TAB (NF) PO SCH (18:00)
[2020-07-29 05:29] LABS: Calcium 8.1 mg/dL (8.6-10.3); EGFR African American 7.5 (>60); EGFR Non-African American 6.2 (>60); Potassium 4.1 mmol/L (3.5-5.0)
[2020-07-29] MEDS: Heparin 5000 UNITS/ML 1 mL VIAL SUBCUT SCH (06:32)
[2020-07-29 08:54] VITALS: BP 160/83
[2020-07-30 12:15] LABS: TB2 Ag minus Nil Result -0.01 IU/mL
[2020-07-30 12:19] LABS: QuantiferonTb Gold Plus Result Negative (Negative)
== END 2020-07-29 10:55 | disposition home or self-care (01) | DRG 640 ==
LOC: MED 07:13 → ED 07:13 → MED 09:51
PROVIDERS: ADMIT Hospitalist; ATTEND Hospitalist